=== PATIENT | female | born 1990 | race Caucasian/White ===

== ENCOUNTER 2017-07-05 20:22 | Emergency (ER) | payer SELFPAY ==
[2017-07-05] MEDS ORDERED: diphenhydrAMINE 25 MG CAPSULE PO STA (20:31)
[2017-07-05] MEDS ORDERED: predniSONE 20 MG TABLET PO STA (20:31)
--- NOTE | 2017-07-05 20:32 | ED Physician Documentation ---
History of Present Illness - Stated complaint Stated Complaint: SWELLING MOUTH - Chief complaint Chief Complaint: Allergic Rx - History obtained from History obtained from: Patient - History of Present Illness Timing: Today, How many minutes ago (15) Pain level max: 0 Pain level now: 0 - Additonal information Additional information: Patient is a 26-year-old female who presents to the emergency department lower lip swelling. States it started after taking Excedrin Migraine. Has previously taken this without issue. Does not feel like her tongue is swollen. No wheezing or difficulty breathing. No change in voice. Nothing makes it better or worse. 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 - Present Medications Home Medications: Ambulatory Orders Medication Instructions Recorded Confirmed Fluoxetine HCl [Prozac] 1 cap PO DAILY PRN 07/05/17 07/05/17 predniSONE [Prednisone] 40 mg PO DAILY #6 tablet 07/05/17 - Allergies Allergies/Adverse Reactions: Allergies Allergy/AdvReac Type Severity Reaction Status Date / Time amoxicillin [Amoxicillin] Allergy Rash Verified 07/05/17 20:51 azithromycin [From Zithromax] Allergy Rash Verified 07/05/17 20:51 Penicillins Allergy Rash Verified 07/05/17 20:51 Sulfa (Sulfonamide Allergy Rash Verified 07/05/17 20:51 Antibiotics) - Social History Does the pt smoke?: No Smoking Status: Never smoker Does the pt drink ETOH?: No Does the pt have substance abuse?: No - Immunizations Immunizations are current?: Yes PD ED PE NORMAL - Vitals Vital signs reviewed: Yes - General General: Alert and oriented X 3, No acute distress - HEENT HEENT: PERRL, EOMI, Ears normal, Moist mucous membranes, Pharynx benign, Other ( Mild swelling to the lower lip. Intraoral exam is normal. No wheezing or stridor.) - Neck Neck: Supple, no meningeal sign - Cardiac Cardiac: RRR - Respiratory Respiratory: No respiratory distress, Clear bilaterally - Abdomen Abdomen: Soft, Non tender, Non distended - Derm Derm: Warm and dry - Neuro Neuro: Alert and oriented X 3 - Psych Psych: Normal mood, Normal affect Results - Vitals Vitals: Vital Signs - 24 hr 07/05/17 07/05/17 07/05/17 20:24 20:45 21:09 Temperature 36.9 C Heart Rate 70 89 85 Respiratory 16 15 15 Rate Blood Pressure 155/92 H 139/94 H 145/92 H O2 Saturation 99 99 97 07/05/17 22:03 Temperature Heart Rate 84 Respiratory 16 Rate Blood Pressure 147/100 H O2 Saturation 98 Oxygen O2 Source Room air PD MEDICAL DECISION MAKING - ED course Complexity details: considered differential, d/w patient ED course: Patient is a 26-year-old female with what appears to be an allergic reaction to the lower lip. Unclear what this was too, but possibly related to the Excedrin Migraine she took? She was given Benadryl and prednisone and observed in the emergency department while the swelling resolved. No stridor. No wheezing. Will prescribe steroids for home and follow-up with her PCP. Patient counseled regarding signs and symptoms for which I believe and urgent re-evaluation would be necessary. Patient with good understanding of and agreement to plan and is comfortable going home at this time This document was made in part using voice recognition software. While efforts are made to proofread this document, sound alike and grammatical errors may occur. Departure - Departure Disposition: 01 Home, Self Care Clinical Impression: Allergic reaction Qualifiers: Encounter type: initial encounter Qualified Code(s): T78.40XA - Allergy, unspecified, initial encounter Condition: Good Instructions: ED Allergic Reaction Local Other Follow-Up: Arlen Da Silva MD [Primary Care Provider] - As Needed Prescriptions: predniSONE [Prednisone] 40 mg PO DAILY #6 tablet Comments: Continue benadryl at home as well. 1 pill every 6 hours. Return if you worsen. Do not drive while taking the benadryl. Discharge Date/Time: 07/05/17 22:03
[2017-07-05] MEDS ORDERED: diphenhydrAMINE 25 MG CAPSULE PO ONE (20:41)
[2017-07-05] MEDS ORDERED: predniSONE 20 MG TABLET ONE (20:41)
[2017-07-05 22:05] VITALS: BP 147/100
== END 2017-07-05 22:03 | disposition home or self-care (01) ==
LOC: ED 20:22
DX: T78.40XA Allergy, unspecified, initial encounter (principal); X58.XXXA Exposure to other specified factors, initial encounter
CPT/HCPCS: 99283; A9270; J7512

== ENCOUNTER 2020-01-23 20:58 | Emergency (ER) | payer OTHER ==
--- NOTE | 2020-01-23 21:08 | ED Physician Documentation ---
History of Present Illness - Stated complaint Stated Complaint: ABD PX/DIZZY/NAUSEA - History obtained from History obtained from: Patient (Patient is a 29-year-old female who presents with diffuse abdominal discomfort and nausea and abdominal pain. She denies any fevers chills or night sweats denies any flank pain or hematuria or syncopal episodes.) Review of Systems Constitutional: reports: Reviewed and negative Eyes: reports: Reviewed and negative Ears: reports: Reviewed and negative Nose: reports: Reviewed and negative Throat: reports: Reviewed and negative Cardiac: reports: Reviewed and negative Respiratory: reports: Reviewed and negative GI: reports: Abdominal Pain : reports: Reviewed and negative Skin: reports: Reviewed and negative Musculoskeletal: reports: Reviewed and negative Neurologic: reports: Reviewed and negative Psychiatric: reports: Reviewed and negative Endocrine: reports: Reviewed and negative Immunocompromised: reports: Reviewed and negative PD PAST MEDICAL HISTORY - Past Medical History Psych: Depression - Past Surgical History Past Surgical History: Yes 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 - Present Medications Home Medications: Ambulatory Orders Medication Instructions Recorded Confirmed Fluoxetine HCl [Prozac] 1 cap PO DAILY PRN 07/05/17 07/05/17 predniSONE [Prednisone] 40 mg PO DAILY #6 tablet 07/05/17 Nitrofurantoin Monohyd/M-Cryst 100 mg PO BID 5 Days #10 capsule 01/23/20 [Macrobid 100 mg Capsule] - Allergies Allergies/Adverse Reactions: Allergies Allergy/AdvReac Type Severity Reaction Status Date / Time amoxicillin [Amoxicillin] Allergy Rash Verified 01/23/20 21:08 azithromycin [From Zithromax] Allergy Rash Verified 01/23/20 21:08 Penicillins Allergy Rash Verified 01/23/20 21:08 Sulfa (Sulfonamide Allergy Rash Verified 01/23/20 21:08 Antibiotics) - Social History Does the pt smoke?: No Smoking Status: Never smoker Does the pt drink ETOH?: No Does the pt have substance abuse?: No - Immunizations Immunizations are current?: Yes PD ED PE NORMAL - Vitals Vital signs reviewed: Yes - General General: Alert and oriented X 3, No acute distress, Well developed/nourished - HEENT HEENT: PERRL, Moist mucous membranes - Neck Neck: Supple, no meningeal sign - Cardiac Cardiac: RRR, No murmur, Strong equal pulses - Respiratory Respiratory: Clear bilaterally - Abdomen Abdomen: Other (The abdomen is mildly tender there is no peritoneal signs there is no guarding no rebounding no hepatosplenomegaly no CVA tenderness no obvious hernias appreciated no midline abdominal pulsatile mass) - Female Female : Pt declined - Rectal Rectal: Pt declined - Back Back: No CVA TTP, No spinal TTP - Derm Derm: Normal color, Warm and dry, No rash - Extremities Extremities: No deformity - Neuro Neuro: Alert and oriented X 3, 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, No motor deficit, No sensory deficit, Normal speech - Psych Psych: Normal mood, Normal affect Results - Vitals Vitals: Vital Signs - 24 hr 01/23/20 01/23/20 21:08 23:15 Temperature 36.5 C Heart Rate 76 82 Respiratory 16 14 Rate Blood Pressure 172/94 H 168/78 H O2 Saturation 100 98 Oxygen O2 Source Room air - Labs Labs: Laboratory Tests 01/23/20 01/23/20 01/23/20 21:19 21:30 21:30 WBC 9.6 RBC 4.35 Hgb 14.1 Hct 40.7 MCV 93.6 MCH 32.4 H MCHC 34.6 RDW 12.6 Plt Count 232 MPV 9.5 Neut # (Auto) 7.0 H Lymph # (Auto) 1.7 Galax # (Auto) 0.6 Eos # (Auto) 0.2 Baso # (Auto) 0.1 Absolute Nucleated RBC 0.00 Nucleated RBC % 0.0 Sodium 140 Potassium 3.1 L Chloride 104 Carbon Dioxide 25 Anion Gap 11.0 BUN 12 Creatinine 0.6 Estimated GFR (MDRD) 118 Glucose 105 H Lactic Acid Calcium 9.3 Total Bilirubin 1.0 AST 17 ALT 27 Alkaline Phosphatase 59 Total Protein 7.9 Albumin 4.5 Globulin 3.4 Albumin/Globulin Ratio 1.3 Lipase 34 Urine Color YELLOW Urine Clarity CLEAR Urine pH 6.5 Ur Specific Irma 1.020 Urine Protein NEGATIVE Urine Glucose (UA) NEGATIVE Urine Ketones TRACE Urine Occult Blood NEGATIVE Urine Nitrite POSITIVE H Urine Bilirubin NEGATIVE Urine Urobilinogen 0.2 (NORMAL) Ur Leukocyte Esterase NEGATIVE Urine RBC 0-5 Urine WBC 4-5 Ur Squamous Epith Cells FEW Squamous Urine Bacteria Many H Ur Microscopic Review INDICATED Urine Culture Comments INDICATED Urine HCG, Qual NEGATIVE 01/23/20 21:49 WBC RBC Hgb Hct MCV MCH MCHC RDW Plt Count MPV Neut # (Auto) Lymph # (Auto) Galax # (Auto) Eos # (Auto) Baso # (Auto) Absolute Nucleated RBC Nucleated RBC % Sodium Potassium Chloride Carbon Dioxide Anion Gap BUN Creatinine Estimated GFR (MDRD) Glucose Lactic Acid 0.5 Calcium Total Bilirubin AST ALT Alkaline Phosphatase Total Protein Albumin Globulin Albumin/Globulin Ratio Lipase Urine Color Urine Clarity Urine pH Ur Specific Irma Urine Protein Urine Glucose (UA) Urine Ketones Urine Occult Blood Urine Nitrite Urine Bilirubin Urine Urobilinogen Ur Leukocyte Esterase Urine RBC Urine WBC Ur Squamous Epith Cells Urine Bacteria Ur Microscopic Review Urine Culture Comments Urine HCG, Qual PD MEDICAL DECISION MAKING - ED course Complexity details: considered differential (Patient's exam is unremarkable she was treated with IV fluids and IV analgesics and antiemetics reexamined multiple times her pain is resolved her urinalysis is positive for nitrite and bacteria will go ahead and provide a prescription for antibiotics and close follow-up with her primary care provider tomorrow.) Departure - Departure Disposition: Home, Self Care Clinical Impression: Abdominal pain Qualifiers: Abdominal location: unspecified location Qualified Code(s): R10.9 - Unspecified abdominal pain UTI (urinary tract infection) Qualifiers: Urinary tract infection type: site unspecified Hematuria presence: without hematuria Qualified Code(s): N39.0 - Urinary tract infection, site not specified Condition: Stable Instructions: ED UTI Cystitis Female Follow-Up: your, doctor [Other] - Tomorrow Prescriptions: Nitrofurantoin Monohyd/M-Cryst [Macrobid 100 mg Capsule] 100 mg PO BID 5 Days #10 capsule Comments: Follow-up with your primary care provider tomorrow. Take antibiotics as directed. Discharge Date/Time: 01/23/20 23:21
[2020-01-23 21:39] LABS: BASOPHILS # (AUTO) 0.1 10^3/uL (0.0-0.1); BASOPHILS % (AUTO) 0.6 %; EOSINOPHILS # (AUTO) 0.2 10^3/uL (0.0-0.7); EOSINOPHILS % (AUTO) 1.9 %; HGB - HEMOGLOBIN 14.1 g/dL (12.0-16.0); LYMPHOCYTES # (AUTO) 1.7 10^3/uL (1.5-3.5); LYMPHOCYTES % (AUTO) 17.5 %; MEAN CORPUSCULAR HEMOGLOBIN 32.4 pg (27.0-31.0); MEAN CORPUSCULAR HGB CONC 34.6 g/dL (32.0-36.0); MEAN CORPUSCULAR VOLUME 93.6 fL (81.0-99.0); MEAN PLATELET VOLUME 9.5 fL (7.9-10.8); MONOCYTES # (AUTO) 0.6 10^3/uL (0.0-1.0); MONOCYTES % (AUTO) 6.4 %; NEUTROPHILS % (AUTO) 73.2 %; PLT - PLATELET COUNT 232 10^3/uL (130-450); RED BLOOD COUNT 4.35 10^6/uL (4.20-5.40); RED CELL DISTRIBUTION WIDTH 12.6 % (12.0-15.0); WHITE BLOOD COUNT 9.6 x10^3/uL (4.8-10.8)
[2020-01-23 21:40] LABS: BILIRUBIN,URINE NEGATIVE (NEGATIVE); GLUCOSE, URINE (UA) NEGATIVE (NEGATIVE); KETONES,URINE (UA) TRACE mg/dL (NEGATIVE); LEUKOCYTE ESTERASE, URINE NEGATIVE (NEGATIVE); NITRITE,URINE POSITIVE (NEGATIVE); OCCULT BLOOD,URINE NEGATIVE (NEGATIVE); PH,URINE 6.5 PH (5.0-7.5); PROTEIN,URINE NEGATIVE (NEGATIVE); UROBILINOGEN,URINE 0.2 (NORMAL) E.U./dL (NORMAL)
[2020-01-23 21:43] LABS: CLARITY,URINE CLEAR (CLEAR); HCG UR QUAL NEGATIVE
[2020-01-23] MEDS ORDERED: SODIUM CHLORIDE 0.9% 1,000 ML IV STA (21:44)
[2020-01-23] MEDS ORDERED: ONDANSETRON 4 MG/2 ML VIAL IVP STA (21:44)
[2020-01-23] MEDS ORDERED: MORPHINE 2 MG/ML CARPUJECT IVP STA (21:44)
[2020-01-23 21:50] LABS: BACTERIA,URINE Many /HPF (None Seen); RBC,URINE 0-5 /HPF (0-5); SQUAMOUS EPITHELIAL CELL,UR FEW Squamous (<= Few)
[2020-01-23 21:52] LABS: ALBUMIN 4.5 g/dL (3.2-5.5); ALBUMIN/GLOBULIN RATIO 1.3 (1.0-2.2); CALCIUM 9.3 mg/dL (8.5-10.3); CREATININE 0.6 mg/dL (0.4-1.0); TOTAL PROTEIN 7.9 g/dL (6.7-8.2)
[2020-01-23 23:16] VITALS: BP 168/78
== END 2020-01-23 23:21 | disposition home or self-care (01) ==
LOC: ED 20:58
DX: R10.9 Unspecified abdominal pain (principal); N39.0 Urinary tract infection, site not specified
CPT/HCPCS: 36415; 80053; 81001; 81003; 81025; 83605; 83690; 85025; 87086; 96374; 96375; 99283

== ENCOUNTER 2021-02-03 09:53 | Emergency (ER) | payer OTHER ==
[2021-02-03] MEDS ORDERED: HYDROcod/ACETAM 5/325 MG TABLET PO STA (10:23)
--- NOTE | 2021-02-03 10:26 | ED Physician Documentation ---
PD HPI HEENT - Stated complaint Stated Complaint: MOUTH/LIP SORE - Chief complaint Chief Complaint: Heent - History obtained from History obtained from: Patient - Additional information Additional information: She went to see the dentist on Wednesday. She had what sounds like bitewings or a Panorex done. Was told there were no problems but was prescribed Peridex. Subsequent to starting the Peridex now her gums are all swollen she has lip sores. Pain is significant. No fevers. 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 - Present Medications Home Medications: Ambulatory Orders Medication Instructions Recorded Confirmed HYDROcod/ACETAM 5/325 [[place] 5/325] 1 - 2 tab PO Q6H PRN #10 tablet 02/03/21 Magic Mouthwash 5 ml PO QID PRN #150 ml 02/03/21 clindamycin HCL [Cleocin HCl] 300 mg PO QID #28 cap 02/03/21 - Allergies Allergies/Adverse Reactions: Allergies Allergy/AdvReac Type Severity Reaction Status Date / Time amoxicillin [Amoxicillin] Allergy Rash Verified 02/03/21 10:00 azithromycin [From Zithromax] Allergy Rash Verified 02/03/21 10:00 Penicillins Allergy Rash Verified 02/03/21 10:00 Sulfa (Sulfonamide Allergy Rash Verified 02/03/21 10:00 Antibiotics) - Social History Does the pt smoke?: No Smoking Status: Never smoker Does the pt drink ETOH?: Yes Does the pt have substance abuse?: No - Immunizations Immunizations are current?: Yes PD ED PE NORMAL - Vitals Vital signs reviewed: Yes - General General: Alert and oriented X 3, No acute distress - HEENT HEENT: Other (Her gums are diffusely swollen, some spots of bleeding. Also mild inflammation of the tongue. Retropharynx is normal, phonation is normal.) - Neck Neck: Supple, no meningeal sign, No bony TTP - Derm Derm: Normal color, Warm and dry - Extremities Extremities: No edema, No calf tenderness / cord - Neuro Neuro: Alert and oriented X 3, Normal speech Results - Vitals Vitals: Vital Signs - 24 hr 02/03/21 02/03/21 09:56 10:36 Temperature 36.0 C L 36.8 C Heart Rate 86 85 Respiratory 16 16 Rate Blood Pressure 160/112 H 165/114 H O2 Saturation 98 99 Oxygen O2 Source Room air PD MEDICAL DECISION MAKING - ED course ED course: 30-year-old woman with what is likely a localized allergic reaction to Peridex which she is advised to stop and prescribed Magic mouthwash with steroid and antibiotics for severe swollen gingivitis. Departure - Departure Disposition: 01 Home, Self Care Clinical Impression: Allergic gingivitis Condition: Good Record reviewed to determine appropriate education?: Yes Instructions: ED Allergic Reaction Local Other Prescriptions: clindamycin HCL [Cleocin HCl] 300 mg PO QID #28 cap Magic Mouthwash 5 ml PO QID PRN #150 ml PRN Reason: mouth pain HYDROcod/ACETAM 5/325 [[place] 5/325] 1 - 2 tab PO Q6H PRN #10 tablet PRN Reason: Pain Comments: I would add chlorhexidine/Peridex to your allergy list. Return for new or worsening symptoms. Recheck with your dentist in 3 days if not better. Discharge Date/Time: 02/03/21 10:43
[2021-02-03 10:37] VITALS: BP 165/114
== END 2021-02-03 10:43 | disposition home or self-care (01) ==
LOC: ED 09:53
DX: K05.00 Acute gingivitis, plaque induced (principal); T78.40XA Allergy, unspecified, initial encounter
CPT/HCPCS: 99283; A9270

== ENCOUNTER 2021-02-11 14:45 | Emergency (ER) | payer OTHER ==
[2021-02-11 14:53] VITALS: BP 165/106
--- NOTE | 2021-02-11 14:57 | ED Physician Documentation ---
PD HPI HEENT - Stated complaint Stated Complaint: BLURRY VISION/LT SIDE WEAKNESS - Chief complaint Chief Complaint: Heent - History obtained from History obtained from: Patient - History of Present Illness Timing - onset: How many days ago (4) Timing - duration: Days (4) Timing - details: Gradual onset, Still present Location: Other (left side of face weakness gradual onset and worsening over 4 days. Ginginval and lip lesions from a week ago have improved and nearly gone (mild lower lip still).) Associated symptoms: Other (had gingival/lip sores right side week ago after dental exam and Peridex use. There are improved with Prednisone and Clindamycin.). No: Fever, Congestion, Swollen nodes, Facial swelling, Cough Recently seen: Emergency Dept (week ago for oral lesions/sores.) Review of Systems Constitutional: denies: Fever, Chills, Myalgias Eyes: reports: Decreased vision Nose: denies: Rhinorrhea / runny nose, Congestion Throat: reports: Oral lesions / sores. denies: Sore throat Cardiac: denies: Palpitations Respiratory: denies: Dyspnea, Cough GI: denies: Nausea, Vomiting, Diarrhea Musculoskeletal: denies: Neck pain Neurologic: reports: Generalized weakness, Focal weakness (left side face including foreahead.), Headache (mild left frontal). 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 - Present Medications Home Medications: Ambulatory Orders Medication Instructions Recorded Confirmed HYDROcod/ACETAM 5/325 [[place] 5/325] 1 - 2 tab PO Q6H PRN #10 tablet 02/03/21 Magic Mouthwash 5 ml PO QID PRN #150 ml 02/03/21 clindamycin HCL [Cleocin HCl] 300 mg PO QID #28 cap 02/03/21 Valacyclovir HCl [Valtrex] 1,000 mg PO TID 5 Days #15 tablet 02/11/21 dexAMETHasone [Decadron] 4 mg PO DAILY #7 tablet 02/11/21 - Allergies Allergies/Adverse Reactions: Allergies Allergy/AdvReac Type Severity Reaction Status Date / Time amoxicillin [Amoxicillin] Allergy Rash Verified 02/11/21 14:54 azithromycin [From Zithromax] Allergy Rash Verified 02/11/21 14:54 chlorhexidine Allergy Rash Verified 02/11/21 14:54 Penicillins Allergy Rash Verified 02/11/21 14:54 Sulfa (Sulfonamide Allergy Rash Verified 02/11/21 14:54 Antibiotics) - Social History Does the pt smoke?: No Smoking Status: Never smoker Does the pt drink ETOH?: Yes Does the pt have substance abuse?: No - Immunizations Immunizations are current?: Yes PD ED PE NORMAL - Vitals Vital signs reviewed: Yes - General General: Alert and oriented X 3, No acute distress, Well developed/nourished - HEENT HEENT: Ears normal, Moist mucous membranes, Pharynx benign, Other (lower right lip with nearly dried small blister appearing process. This on right. ) - Neck Neck: Supple, no meningeal sign, No adenopathy, No bruit - Cardiac Cardiac: RRR, No murmur - Respiratory Respiratory: Clear bilaterally - Derm Derm: Normal color, Warm and dry - Extremities Extremities: No deformity - Neuro Neuro: Alert and oriented X 3, No sensory deficit, Normal speech, Other (left face with flaccid paralysis including the forehead.) Results - Vitals Vitals: Vital Signs - 24 hr 02/11/21 14:48 Temperature 37.5 C Heart Rate 70 Respiratory 16 Rate Blood Pressure 165/106 H O2 Saturation 99 Oxygen O2 Source Room air PD MEDICAL DECISION MAKING - ED course Complexity details: reviewed old records, reviewed results (I could only find report of 4 cases of Bowman Palsy with the initial Pfizer trial (so about 45 K people). I don't know about ongoing reports/tally through [employer]/FDA reporting. ), considered differential (onset symptoms 3 days after 2nd Pfizer COVID vaccine. consider immune related response with the facial nerve inflammation. She had had oral lesions a week ago that were abphthous like or consider herpetic by location. So the Bowman Palsy could relate to viral herpetic inflammation. 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 This is caused by inflammation of the facial nerve and could relate to or be triggered by your recent vaccination. We will treat it with a steroid anti-inflammatory daily for a week. This is the treatment commonly for other presentations of Bowman Palsy as well. I will report this to the FDA so that there is tracking of the numbers. Current I could see that there were 4 cases of Bowman Palsy in the initial Pfizer trials (so out of about 45 thousand people vaccinated), so may not be above the background rate of random development of Bowman Palsy. You also had sores in the mouth recently and that could possibly represent a viral infection that is into the facial nerve as well. That is a common associated cause of Bowman's palsy as well. We will treat it with Valacyclovir 3 times a day for 5 days. There are no Lyme carrying ticks in this area so that would not be a cause for your Bowman's palsy in this part [place] the [place]. I would anticipate this not really worsening much from here but may take several weeks to resolve. Use lubricating eyedrops regularly through the day to keep your eye from being irritated. Find the easiest foods for eating. Follow-up with your primary care if not starting to improve well over the next week. Discharge Date/Time: 02/11/21 16:08
[2021-02-11] MEDS ORDERED: CHERRY SYRUP 10 ML UDC PO ONE (15:38)
[2021-02-11] MEDS ORDERED: ACYCLOVIR 200 MG CAPSULE PO STA (15:38)
[2021-02-11] MEDS ORDERED: DEXAMETHASONE 10 MG/ML VIAL PO STA (15:38)
== END 2021-02-11 16:08 | disposition home or self-care (01) ==
LOC: ED 14:45
DX: G51.0 Bell's palsy (principal)
CPT/HCPCS: 99282; 99283; A9270

== ENCOUNTER 2022-01-13 02:45 | Emergency (ER) | payer OTHER ==
--- NOTE | 2022-01-13 03:22 | ED Physician Documentation ---
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 Mild dyspnea. Denies fever. She is approximately 6 weeks . She is COVID vaccinated without booster. Review of Systems Constitutional: denies: Fever, Chills, Myalgias, Fatigue, Weight Loss, Sweats Throat: denies: Sore throat Cardiac: reports: Chest pain / pressure. denies: Palpitations, Pedal edema Respiratory: reports: Dyspnea (mild), Cough. denies: Hemoptysis, Wheezing Musculoskeletal: denies: Extremity swelling PD PAST MEDICAL HISTORY - Past Medical History Past Medical History: Yes Cardiovascular: Hypertension Respiratory: None Neuro: None Endocrine/Autoimmune: None GI: None REGISTERED ASSOCIATE: None : None HEENT: None Psych: Depression Musculoskeletal: Other Derm: None - Past Surgical History Past Surgical History: Yes General: Appendectomy /REGISTERED ASSOCIATE: section - Present Medications Home Medications: Ambulatory Orders Medication Instructions Recorded Confirmed Lisinopril [Zestril] 20 mg PO DAILY #30 tablet 11/26/21 desog-e.estradioL/e.estradioL 1 tab PO DAILY 11/26/21 11/26/21 [Volnea 0.15-0.02-0.01 mg Tab] - Allergies Allergies/Adverse Reactions: Allergies Allergy/AdvReac Type Severity Reaction Status Date / Time amoxicillin [Amoxicillin] Allergy Rash Verified 01/13/22 02:56 azithromycin [From Zithromax] Allergy Rash Verified 01/13/22 02:56 chlorhexidine Allergy Rash Verified 01/13/22 02:56 Penicillins Allergy Rash Verified 01/13/22 02:56 Sulfa (Sulfonamide Allergy Rash Verified 01/13/22 02:56 Antibiotics) - Social History Does the pt smoke?: No Smoking Status: Never smoker Does the pt drink ETOH?: Yes Does the pt have substance abuse?: No - Immunizations Immunizations are current?: Yes - POLST Patient has POLST: No PD ED PE NORMAL - Vitals Vital signs reviewed: Yes - General General: Alert and oriented X 3, No acute distress, Well developed/nourished - Cardiac Cardiac: RRR, No murmur, No gallop, No rub - Respiratory Respiratory: No respiratory distress, Clear bilaterally - Abdomen Abdomen: Soft, Non tender - Extremities Extremities: No edema Results - Vitals Vitals: Oxygen O2 Source Room air - EKG (time done) No standard instances Rate: Rate (enter#) (104), Tachy Rhythm: Sinus tachycardia [place]: Normal Intervals: Normal AR QRS: Normal Ischemia: Normal ST segments - Labs Labs: Laboratory Tests 01/13/22 04:25 Nasal Adenovirus (PCR) NOT DETECTED Nasal B. parapertussis DNA (PCR) NOT DETECTED Nasal Coronavir 229E PCR NOT DETECTED Nasal Coronavir HKU1 PCR NOT DETECTED Nasal Coronavir NL63 PCR NOT DETECTED Nasal Coronavir OC43 PCR NOT DETECTED Nasal Enterovir/Rhinovir PCR NOT DETECTED Nasal Influenza B PCR NOT DETECTED Nasal Influenza A PCR NOT DETECTED Nasal Parainfluen 1 PCR NOT DETECTED Nasal Parainfluen 2 PCR NOT DETECTED Nasal Parainfluen 3 PCR NOT DETECTED Nasal Parainfluen 4 PCR NOT DETECTED Nasal RSV (PCR) NOT DETECTED Nasal B.pertussis DNA PCR NOT DETECTED Nasal C.pneumoniae (PCR) NOT DETECTED [place] Human Metapneumo PCR NOT DETECTED Nasal M.pneumoniae (PCR) NOT DETECTED Nasal SARS-CoV-2 (PCR) NOT DETECTED - Rads (name of study) chest xray Radiology: Prelim report reviewed, See rad report PD MEDICAL DECISION MAKING - ED course Complexity details: reviewed results, re-evaluated patient, considered differential, d/w patient ED course: HPI suggestive of URI. Unremarkable EKG, CXR, and negative respiratory panel PCR for viruses tested including COVID and influenza. She is in NAD and vital signs stable. No further emergent testing indicated at this time nor specific treatment. Suspect URI, recommend follow up with PMD, return precautions discussed. Departure - Departure Disposition: 01 Home, Self Care Clinical Impression: Upper respiratory tract infection Qualifiers: URI type: unspecified viral URI Qualified Code(s): J06.9 - Acute upper respir atory infection, unspecified Condition: Good Instructions: ED Upper Resp Infec No Abx Tx Comments: Your tests are unremarkable at this time. The chest xray was normal; no evidence of infection such as pneumonia. As we discussed, upper respiratory infections including bronchitis typically do not show on chest xray, but these infections also typically do not need an antibiotic. The nasal swab was negative for the viruses tested (included COVID, influenza, and several other viruses). At this time, further testing is not indicated and there is no specific treatment necessary. The symptoms should resolve within the next several days. Return to the emergency department if worse, follow up with your primary care provider within 4-5 days if not improving Discharge Date/Time: 01/13/22 06:31
[2022-01-13] MEDS ORDERED: ACETAMINOPHEN 325 MG TABLET PO STA (04:18)
[2022-01-13 05:19] LABS: CORONAVIRUS 229E-RESP PCR NOT DETECTED; CORONAVIRUS HKU1-RESP PCR NOT DETECTED; CORONAVIRUS NL63-RESP PCR NOT DETECTED; CORONAVIRUS OC43-RESP PCR NOT DETECTED; HUMAN METAPNEUMOVIRUS NOT DETECTED; INFLUENZA A- RESP PCR PANEL NOT DETECTED; RHINOVIRUS/ENTEROVIRUS NOT DETECTED; SARS-CoV-2 -RESP PCR PANEL NOT DETECTED
[2022-01-13 05:20] LABS: B. PARAPERTUSSIS- RESP PCR PAN NOT DETECTED; B. PERTUSSIS- RESP PCR PANEL NOT DETECTED; C. PNEUMONIAE- RESP PCR PANEL NOT DETECTED; INFLUENZA B - RESP PCR PANEL NOT DETECTED; M. PNEUMONIAE- RESP PCR PANEL NOT DETECTED; PARAINFLUENZA VIRUS 1 NOT DETECTED; PARAINFLUENZA VIRUS 2 NOT DETECTED; PARAINFLUENZA VIRUS 3 NOT DETECTED; PARAINFLUENZA VIRUS 4 NOT DETECTED; RSV- RESP PCR PANEL NOT DETECTED
[2022-01-13 06:31] VITALS: BP 161/103
--- NOTE | 2022-01-13 07:32 | XRAY Report ---
PROCEDURE: Chest 2 View X-Ray INDICATIONS: chest pain, cough TECHNIQUE: 2 view(s) of the chest. COMPARISON: None. FINDINGS: Surgical changes and devices: None. Lungs and pleura: No pleural effusions or pneumothorax. Lungs are clear. Mediastinum: Mediastinal contours are normal. Heart size is normal. Bones and chest wall: No suspicious bony abnormalities. Soft tissues appear unremarkable. IMPRESSION: Chest without acute cardiopulmonary abnormalities. No focal airspace disease. No significant discrepancy with initial interpretation by overnight radiologist. Reviewed by: Tan Erickson MD on 01/13/2022 7:30 AM PDT Approved by: Tan Erickson MD on 01/13/2022 7:30 AM PDT Station ID: [id number]
== END 2022-01-13 06:31 | disposition home or self-care (01) ==
LOC: ED 02:45
DX: O99.511 Diseases of the respiratory system complicating pregnancy, first trimester (principal); J06.9 Acute upper respiratory infection, unspecified; Z20.822 Contact with and (suspected) exposure to COVID-19; Z3A.01 Less than 8 weeks gestation of pregnancy
CPT/HCPCS: 71046; 87633; 93005; 99284; A9270

== ENCOUNTER 2022-10-29 17:02 | Emergency (ER) | payer MEDICAID, OTHER ==
--- NOTE | 2022-10-29 17:23 | ED Physician Documentation ---
PD HPI DYSPNEA - Stated complaint Stated Complaint: BODY SWELLING/COLD - Chief complaint Chief Complaint: General - History obtained from History obtained from: Patient - History of Present Illness Timing - onset: Today (The patient presents with onset of generalized edema most notable with some in the face and hands and some on her knee. Faint feeling of lightheadedness and throat swelling. No lip swelling nor dyspnea. She had started to new medicines today and increased dose of another.) Timing - details: Abrupt onset, Still present Inciting event(s): Other (The patient had seen her primary care provider for hypertension and also some mood disorder. She was prescribed nifedipine and losartan and told to increase her sertraline from 25 to 50 mg. She did all 3 of those this more name and a few hours later noted some edema.) Associated symptoms: Other (She had a slight feeling of fogginess and thought and a lightheaded feeling and also described feeling cold all over. She took her blood pressure and it was 123/78 which is actually quite low compared to her normal 160/90.) Similar symptoms before: Has not had sx before Recently seen: Clinic Review of Systems Constitutional: denies: Fever, Chills Nose: denies: Rhinorrhea / runny nose, Congestion Throat: denies: Sore throat Cardiac: denies: Chest pain / pressure, Palpitations Respiratory: denies: Cough GI: denies: Nausea, Vomiting Skin: denies: Rash (denies hives/rash/itching with the symptoms today.) Neurologic: denies: Focal weakness, Numbness, Altered mental status PD PAST MEDICAL HISTORY - Past Medical History Cardiovascular: Hypertension Respiratory: None Neuro: None Endocrine/Autoimmune: None GI: None 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: 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 : None HEENT: None Psych: Depression Musculoskeletal: Other Derm: None - Past Surgical History Past Surgical History: Yes General: Appendectomy /SUPERVISOR RESIDENTIAL: section - Present Medications Home Medications: Ambulatory Orders Medication Instructions Recorded Confirmed Lisinopril [Zestril] 20 mg PO DAILY #30 tablet 11/26/21 desog-e.estradioL/e.estradioL 1 tab PO DAILY 11/26/21 11/26/21 [Volnea 0.15-0.02-0.01 mg Tab] - Allergies Allergies/Adverse Reactions: Allergies Allergy/AdvReac Type Severity Reaction Status Date / Time amoxicillin [Amoxicillin] Allergy Rash Verified 10/29/22 17:14 azithromycin [From Zithromax] Allergy Rash Verified 10/29/22 17:14 chlorhexidine Allergy Rash Verified 10/29/22 17:14 Penicillins Allergy Rash Verified 10/29/22 17:14 Sulfa (Sulfonamide Allergy Rash Verified 10/29/22 17:14 Antibiotics) - Social History Does the pt smoke?: No Smoking Status: Never smoker Does the pt drink ETOH?: Yes Does the pt have substance abuse?: No - Immunizations Immunizations are current?: Yes - POLST Patient has POLST: No PD ED PE NORMAL - Vitals Vital signs reviewed: Yes - General General: Alert and oriented X 3, No acute distress, Well developed/nourished - HEENT HEENT: Pharynx benign (Minimal edema of the uvula. Otherwise normal oral exam.) - Neck Neck: Supple, no meningeal sign, No adenopathy - Cardiac Cardiac: RRR, No murmur - Respiratory Respiratory: Clear bilaterally - Abdomen Abdomen: Soft, Non tender - Derm Derm: Normal color, Warm and dry, No rash - Extremities Extremities: No calf tenderness / cord, Other (Mild general edema of both hands and fingers and slightly on the forehead. Not really noticed in the legs. No trouble breathing.) - Neuro Neuro: Alert and oriented X 3, No motor deficit, Normal speech Results - Vitals Vitals: Vital Signs - 24 hr 10/29/22 10/29/22 10/29/22 17:09 17:27 18:18 Temperature 36.8 C Heart Rate 92 86 87 Respiratory 16 20 18 Rate Blood Pressure 141/91 H 147/98 H 138/96 H O2 Saturation 99 99 99 Oxygen O2 Source Room air PD Medical Decision Making - ED course Complexity details: considered differential (She had mild edema diffusely but mostly hands and face. 2 new medicines and 1 increased dose this morning a few hours earlier. No other obvious precipitant of new foods etc. Presume one of the medicines. ), d/w patient ED course: She has been on sertraline and just an increased dose now so less likely. Nifedipine can cause edema but usually slower over days/weeks. I presume the lisinopril caused symtpoms of swelling as angioedema known occasional adverse effect. The foggy and lightheaded may have been just the lower BP effective from the new anithypertensives and will need to not start or change 3 meds at a time. Departure - Departure Disposition: 01 Home, Self Care Clinical Impression: Light-headed feeling, Mild generalized edema, Side effect of medication Condition: Stable Record reviewed to determine appropriate education?: Yes Follow-Up: JENNIFER RICO [Primary Care Provider] - Comments: It is hard to tell exactly what caused your symptoms. The lightheadedness and foggy feeling in could be the increased dose of sertraline as that would be side effects to expect until you are adjusted to the new dose. However it could relate to a abrupt drop in blood pressure that may have gone from the effectiveness of the 2 new blood pressure medicines. That drop in blood pressure certainly could have led to the feeling of "coldness" in your system as your body pulled blood from the skin to the core to support the main organs. However the swelling so abruptly would be harder to explain from a drop in the blood pressure. I therefore would be inclined to think a side effect of one of the medicines such as allergic reaction. Of the 3 medicines, the lisinopril is most associated with an abrupt edema. I therefore would suggest holding the lisinopril. Stay well-hydrated and tomorrow take just the nifedipine and your prior dose of the sertraline, and see if you feel okay with that for a couple of days. If so then increase the sertraline up to the 50 mg and see how you feel with that over a few days. Your blood pressure may still be a bit elevated with just these but better that than too low or other side effects. If you are feeling well with those 2 medications each and no recurrent edema or other symptoms to it, then call and talk to your provider and see if they want to try resuming the lisinopril or just go with a different blood pressure medicine such as an ARB like losartan or such. If you have recurrent edema and other side effects with either of the other medicines, then obviously stop them. Discharge Date/Time: 10/29/22 18:23
[2022-10-29 18:22] VITALS: BP 138/96
--- OUTSIDE RECORDS SUMMARY | 2022-10-29 18:26 | EXTERNAL MEDICAL SUMMARY RPT | Continuity of Care Document ---
:1990 Author Organization [facility] Address [address] [place] [address] Phone Allergies and Intolerances date description facility type (no date) Sulfa (Sulfonamide Antibiotics) [facility] (unknown) (no date) amoxicillin [facility] (unknown) (no date) azithromycin [facility] (unknown) (no date) chlorhexidine [facility] (unknown) (no date) latex [facility] (unknown) Encounters No information. Functional Status No information. Immunizations No information. Medications No information. Problems date description facility 2022-08-04 23:21 Essential (primary) hypertension [facility] 2022-08-04 23:21 33 weeks gestation of [facility] 2022-08-06 16:17 Essential (primary) hypertension [facility] 2022-08-06 16:17 33 weeks gestation of [facility] 2022-09-02 17:04 Essential (primary) hypertension [facility] 2022-09-02 17:04 Unspecified pre-eclampsia, unspecified [facility] trimester 2022-09-02 17:04 Other immediate hemorrhage [facility] 2022-09-04 18:01 Essential (primary) hypertension [facility] 2022-09-04 18:01 Unspecified pre-eclampsia, unspecified [facility] trimester 2022-09-04 18:01 Other immediate hemorrhage [facility] 2022-09-04 18:01 Encounter for screening for other suspe cted [facility] endocrine disord Procedures No information. Results/Labs test date author facility value unit interpret ation Result panel 1 (unknown) (no (unknown) (unknown) (no value) (units (unk nown) date) unknown) (unknown) (no (unknown) (unknown) (1) 33 weeks (units (u nknown) date) gestation of unknown) : (unknown) (no (unknown) (unknown) (2) Essential (units ( unknown) date) hypertension: unknown) (unknown) (no (unknown) (unknown) [id number] (units (unkno wn) date) unknown) (unknown) (no (unknown) (unknown) 32yo at (units (u nknown) date) 33w6d here for unknown) NST for chronic HTN. NST reactive. Continue (unknown) (no (unknown) (unknown) 32yo at (units (u nknown) date) 33w6d here for unknown) NST for chronic HTN. Pt denies any concerning (unknown) (no (unknown) (unknown) Age/Sex: 32 / F (units (unknown) date) unknown) (unknown) (no (unknown) (unknown) Chronic cough (units ( unknown) date) (-2000) unknown) (unknown) (no (unknown) (unknown) Comments/Additi (units (unknown) date) onal reasons for unknown) admission: (unknown) (no (unknown) (unknown) : 1990 (units (unknown) date) Acct:[id number] unknown) (unknown) (no (unknown) (unknown) Date of (units (unkno wn) date) Service: unknown) 08/04/22 (unknown) (no (unknown) (unknown) Date of (units (unkno wn) date) evaluation: unknown) 08/04/22 (unknown) (no (unknown) (unknown) Depression (units (unk nown) date) unknown) (unknown) (no (unknown) (unknown) Diagnosis, (units (unk nown) date) Plan/Disposition unknown) (unknown) (no (unknown) (unknown) Family History (units (unknown) date) (Reviewed unknown) 07/30/22 @ 11:31 by Karina Gaytan DO) (unknown) (no (unknown) (unknown) Final Diagnosis (units (unknown) date) unknown) (unknown) (no (unknown) (unknown) Grandfather (units (un known) date) Hypertension unknown) (unknown) (no (unknown) (unknown) Grandmother (units (un known) date) Type 2 diabetes unknown) mellitus (unknown) (no (unknown) (unknown) Hypertension (units (u nknown) date) unknown) (unknown) (no (unknown) (unknown) [facility] (units (unknown) date) [address] unknown) [place] [address] (unknown) (no (unknown) (unknown) Labor and (units (unkn own) date) Delivery Triage unknown) Note (unknown) (no (unknown) (unknown) Medical History (units (unknown) date) (Reviewed unknown) 07/30/22 @ 11:31 by Karina Gaytan DO) (unknown) (no (unknown) (unknown) Mother Age: 51 (units (unknown) date) Stroke unknown) (unknown) (no (unknown) (unknown) OB Disposition: (units (unknown) date) home unknown) (unknown) (no (unknown) (unknown) PFSH (units (unkno wn) date) unknown) (unknown) (no (unknown) (unknown) PUPP (pruritic (units (unknown) date) urticarial unknown) papules and plaques of ) (unknown) (no (unknown) (unknown) Patient: (units (unkno wn) date) Ga Hagan unknown) MR#: [id number] (unknown) (no (unknown) (unknown) Plan/Dispositio (units (unknown) date) n unknown) (unknown) (no (unknown) (unknown) Plan: (units (unkno wn) date) unknown) (unknown) (no (unknown) (unknown) Plantar (units (unkno wn) date) fasciitis unknown) (-2016) (unknown) (no (unknown) (unknown) Primary OB (units (unk nown) date) Provider: unknown) Rabia Gooden (unknown) (no (unknown) (unknown) Provider: (units (unkn own) date) Rabia Gooden unknown) (unknown) (no (unknown) (unknown) Psoriasis (units (unkn own) date) unknown) (unknown) (no (unknown) (unknown) Signed By: (units (unk nown) date) unknown) (unknown) (no (unknown) (unknown) Smoking Status: (units (unknown) date) Never smoker unknown) (unknown) (no (unknown) (unknown) Social History (units (unknown) date) (Reviewed unknown) 07/30/22 @ 11:31 by Karina Gaytan DO) (unknown) (no (unknown) (unknown) Status post (units (un known) date) appendectomy unknown) (-1993) (unknown) (no (unknown) (unknown) Status post (units (un known) date) unknown) delivery (01/06/11) (unknown) (no (unknown) (unknown) Status post (units (un known) date) unknown) delivery (unknown) (no (unknown) (unknown) Status: Acute (units ( unknown) date) unknown) (unknown) (no (unknown) (unknown) Status: Chronic (units (unknown) date) unknown) (unknown) (no (unknown) (unknown) Surgical (units (unkno wn) date) History unknown) (unknown) (no (unknown) (unknown) Type(s) of (units (unk nown) date) exercise: none unknown) (unknown) (no (unknown) (unknown) Visit (units (unkno wn) date) Information unknown) (unknown) (no (unknown) (unknown) alcohol intake: (units (unknown) date) former unknown) (unknown) (no (unknown) (unknown) caffeine: Yes (units ( unknown) date) unknown) (unknown) (no (unknown) (unknown) carbon monox (units (u nknown) date) detector in unknown) home: Yes (unknown) (no (unknown) (unknown) current (units (unkno wn) date) occupational unknown) exposures/hazard s: No (unknown) (no (unknown) (unknown) daily servings (units (unknown) date) fruits/ve-1 unknown) (unknown) (no (unknown) (unknown) do you feel (units (un known) date) safe at home: unknown) Yes (unknown) (no (unknown) (unknown) during the past (units (unknown) date) year weight has: unknown) remained stable (unknown) (no (unknown) (unknown) education (units (unkn own) date) level: other unknown) (unknown) (no (unknown) (unknown) fire (units (unkno wn) date) extinguisher in unknown) home: Yes (unknown) (no (unknown) (unknown) firearms in (units (un known) date) home: No unknown) (unknown) (no (unknown) (unknown) household (units (unkn own) date) members: unknown) significant other and children (unknown) (no (unknown) (unknown) housing: (units (unkno wn) date) apartment unknown) (unknown) (no (unknown) (unknown) lives (units (unkno wn) date) independently: unknown) Yes (unknown) (no (unknown) (unknown) marital status: (units (unknown) date) unmarried,living unknown) together (unknown) (no (unknown) (unknown) number of (units (unkn own) date) children: 2 unknown) (unknown) (no (unknown) (unknown) occupational (units (u nknown) date) status: employed unknown) (unknown) (no (unknown) (unknown) pets and (units (unkno wn) date) animals: Yes (1 unknown) cat (pt is not managing litter box)) (unknown) (no (unknown) (unknown) regular (units (unkno wn) date) unknown) testing. (unknown) (no (unknown) (unknown) seatbelt use: (units ( unknown) date) always unknown) (unknown) (no (unknown) (unknown) second hand (units (un known) date) exposure: No unknown) (unknown) (no (unknown) (unknown) signs/symptoms. (units (unknown) date) She is feeling unknown) her baby move regularly. (unknown) (no (unknown) (unknown) special fly (units ( unknown) date) needs: No unknown) (unknown) (no (unknown) (unknown) substance use (units ( unknown) date) type: marijuana unknown) (unknown) (no (unknown) (unknown) water heater (units (u nknown) date) temp set < 120 unknown) deg: Yes (Will check and adjust if needed) (unknown) (no (unknown) (unknown) well-balanced (units ( unknown) date) diet: about half unknown) the time (unknown) (no (unknown) (unknown) working smoke (units ( unknown) date) detector in unknown) home: Yes Result panel 2 (unknown) (no (unknown) (unknown) (no value) (units (unk nown) date) unknown) (unknown) (no (unknown) (unknown) [id number] (units (unkno wn) date) unknown) (unknown) (no (unknown) (unknown) 1. Single living (units (unknown) date) intrauterine unknown) gestation. (unknown) (no (unknown) (unknown) 08/04/22 (units (unkno wn) date) unknown) (unknown) (no (unknown) (unknown) [address] (units (unknown) date) unknown) (unknown) (no (unknown) (unknown) 2. Appropriate (units (unknown) date) interval growth. unknown) (unknown) (no (unknown) (unknown) Abdominal (units (unkn own) date) circumference: unknown) 299 mm; 33 weeks 6 days (unknown) (no (unknown) (unknown) Accession (units (unkn own) date) Number: unknown) [id number] (unknown) (no (unknown) (unknown) Age/Sex: 32 / F (units (unknown) date) Date of Service: unknown) (unknown) (no (unknown) (unknown) Amniotic fluid (units (unknown) date) index: 14.5 cm, unknown) normal range is 5-24 cm. (unknown) (no (unknown) (unknown) [place] (units ( unknown) date) [id number] unknown) (unknown) (no (unknown) (unknown) Approved by: (units (u nknown) date) Gus Mosquera, raz Serrato on 08/04/2022 at 14:02 (unknown) (no (unknown) (unknown) Biparietal (units (unk nown) date) diameter: 87 mm; unknown) 35 weeks 2 days (unknown) (no (unknown) (unknown) COMPARISON: (units (un known) date) [facility], unknown) US, OB LIMITED, 07/01/2022, 11:02. (unknown) (no (unknown) (unknown) Composite (units (unkn own) date) gestational age unknown) from present scan: 34 weeks 3 days (unknown) (no (unknown) (unknown) Current survey (units (unknown) date) of anatomy unknown) includes normal chest/diaphragm, (unknown) (no (unknown) (unknown) : 1990 (units (unknown) date) Acct:[id number] unknown) (unknown) (no (unknown) (unknown) Dictated by: (units (u nknown) date) raz Houston M.D. on 08/04/2022 at 14:00 (unknown) (no (unknown) (unknown) Endovaginal (units (un known) date) scanning: No unknown) (unknown) (no (unknown) (unknown) Estimated date (units (unknown) date) of delivery (CLAU) unknown) from first dating scan: 09/11/2022. (unknown) (no (unknown) (unknown) Estimated (units (unknown) date) weight and unknown) percentile: 2339 g, which is at the 49th percentile (unknown) (no (unknown) (unknown) Estimated (units (unkn own) date) gestational age unknown) based on initial OB ultrasound: 33 weeks 6 days (unknown) (no (unknown) (unknown) FINDINGS: (units (unkn own) date) unknown) (unknown) (no (unknown) (unknown) Femur length: 65 (units (unknown) date) mm; 33 weeks 4 unknown) days (unknown) (no (unknown) (unknown) (units (unkno wn) date) biometrics: unknown) (unknown) (no (unknown) (unknown) heart (units (un known) date) rate: 122 beats unknown) per minute. (unknown) (no (unknown) (unknown) First dating (units (u nknown) date) scan (date and unknown) location): 04/29/2022. (unknown) (no (unknown) (unknown) General: A (units (unk nown) date) single living unknown) intrauterine gestation is present. (unknown) (no (unknown) (unknown) Head (units (unkno wn) date) circumference: unknown) 314 mm; 35 weeks 1 day (unknown) (no (unknown) (unknown) IMPRESSION: (units (un known) date) unknown) (unknown) (no (unknown) (unknown) INDICATIONS: (units (u nknown) date) HYPERTENSION AND unknown) GESTATIONAL DIABETES (unknown) (no (unknown) (unknown) [facility] (units (unknown) date) unknown) (unknown) (no (unknown) (unknown) LMP-based (units (unkn own) date) estimated date of unknown) delivery (CLAU): Not applicable. (unknown) (no (unknown) (unknown) Last menstrual (units (unknown) date) period (LMP): unknown) Unknown. (unknown) (no (unknown) (unknown) Loc: LABOR (units (unk nown) date) [id number] unknown) (unknown) (no (unknown) (unknown) Maternal (units (unkno wn) date) cervical canal: unknown) 3.6 cm long. Normal lower limit is 2.5 cm. (unknown) (no (unknown) (unknown) OUTSIDE/PRIOR (units ( unknown) date) DATING DATA: unknown) (unknown) (no (unknown) (unknown) Ordering (units (unkno wn) date) Provider: unknown) Rabia Gooden MD (unknown) (no (unknown) (unknown) PROCEDURE: US OB (units (unknown) date) LIMITED unknown) (unknown) (no (unknown) (unknown) Patient: (units (unkno wn) date) Ga Hagan unknown) MR#: [id number] (unknown) (no (unknown) (unknown) Placenta: (units (unkn own) date) Placental unknown) position is anterior , without previa. (unknown) (no (unknown) (unknown) Presentation: (units ( unknown) date) Breech. unknown) (unknown) (no (unknown) (unknown) Procedure: US OB (units (unknown) date) limited unknown) (unknown) (no (unknown) (unknown) Signed (units (unkno wn) date) unknown) (unknown) (no (unknown) (unknown) Single deepest (units (unknown) date) vertical pocket unknown) is 6 cm. (unknown) (no (unknown) (unknown) TECHNIQUE: (units (unk nown) date) Real-time unknown) scanning was performed of the fetus, with image (unknown) (no (unknown) (unknown) To assist (units (unkn own) date) unknown) (unknown) (no (unknown) (unknown) Ultrasound (units (unk nown) date) Report unknown) (unknown) (no (unknown) (unknown) We strive to (units (u nknown) date) produce accurate, unknown) complete, and clear reports of imaging services. (unknown) (no (unknown) (unknown) and voice (units (unkn own) date) recognition unknown) software. Therefore, it may contain abnormal punctuation, (unknown) (no (unknown) (unknown) biometric (units (unkn own) date) measurements. unknown) Biophysical profile was also obtained. (unknown) (no (unknown) (unknown) documentation (units ( unknown) date) and unknown) (unknown) (no (unknown) (unknown) for (units (unkno wn) date) unknown) (unknown) (no (unknown) (unknown) gestational age (units (unknown) date) unknown) (unknown) (no (unknown) (unknown) inaccuracies. (units ( unknown) date) unknown) (unknown) (no (unknown) (unknown) insertions (units (unk nown) date) and/or omissions. unknown) Occasional wrong-word or sound-alike substitutions (unknown) (no (unknown) (unknown) may (units (unkno wn) date) unknown) (unknown) (no (unknown) (unknown) occur. Though we (units (unknown) date) review the report unknown) and make efforts to correct it, we do (unknown) (no (unknown) (unknown) recommend that (units (unknown) date) unknown) (unknown) (no (unknown) (unknown) renal region, (units ( unknown) date) and urinary unknown) bladder/pelvis. Left renal region is not well seen. (unknown) (no (unknown) (unknown) stomach/abdomen, (units (unknown) date) right unknown) (unknown) (no (unknown) (unknown) templates (units (unkn own) date) unknown) (unknown) (no (unknown) (unknown) the report be (units ( unknown) date) read carefully in unknown) proper context to recognize any text (unknown) (no (unknown) (unknown) us in improving (units (unknown) date) patient care, unknown) this report was composed using standard report Result panel 3 (unknown) (no date) (unknown) (unknown) 0 /ul (unkn own) (unknown) (no date) (unknown) (unknown) 0.2 % (unkn own) (unknown) (no date) (unknown) (unknown) 1.2 % (unkn own) (unknown) (no date) (unknown) (unknown) 100 /ul (unkn own) (unknown) (no date) (unknown) (unknown) 12.8 % (unkn own) (unknown) (no date) (unknown) (unknown) 15.0 % (unkn own) (unknown) (no date) (unknown) (unknown) 177 x10 3/ul (unkn own) (unknown) (no date) (unknown) (unknown) 2.92 x10 6/ul (unkn own) (unknown) (no date) (unknown) (unknown) 27.1 % (unkn own) (unknown) (no date) (unknown) (unknown) 32.8 pg (unkn own) (unknown) (no date) (unknown) (unknown) 35.3 % (unkn own) (unknown) (no date) (unknown) (unknown) 5500 /ul (unkn own) (unknown) (no date) (unknown) (unknown) 600 /ul (unkn own) (unknown) (no date) (unknown) (unknown) 7.1 x10 3/ul (unkn own) (unknown) (no date) (unknown) (unknown) 77.2 % (unkn own) (unknown) (no date) (unknown) (unknown) 8.6 % (unkn own) (unknown) (no date) (unknown) (unknown) 9.6 g/dl (unkn own) (unknown) (no date) (unknown) (unknown) 900 /ul (unkn own) (unknown) (no date) (unknown) (unknown) 92.7 fl (unkn own) Result panel 4 (unknown) (no date) (unknown) (unknown) > 60 ml/min (unkn own) (unknown) (no date) (unknown) (unknown) > 60 ml/min (unkn own) (unknown) (no date) (unknown) (unknown) 0.4 mg/dl (unkn own) (unknown) (no date) (unknown) (unknown) 0.67 mg/dl (unkn own) (unknown) (no date) (unknown) (unknown) 1.0 (units unknown) (unknown) (unknown) (no date) (unknown) (unknown) 10 mg/dl (unkn own) (unknown) (no date) (unknown) (unknown) 10.2 mg/dl (unkn own) (unknown) (no date) (unknown) (unknown) 100 u/l (unkn own) (unknown) (no date) (unknown) (unknown) 105 mmol/l (unkn own) (unknown) (no date) (unknown) (unknown) 137 mmol/l (unkn own) (unknown) (no date) (unknown) (unknown) 14.9 (units unknown) (unknown) (unknown) (no date) (unknown) (unknown) 22 mmol/l (unkn own) (unknown) (no date) (unknown) (unknown) 25 iu/l (unkn own) (unknown) (no date) (unknown) (unknown) 3.4 g/dl (unkn own) (unknown) (no date) (unknown) (unknown) 3.5 g/dl (unkn own) (unknown) (no date) (unknown) (unknown) 3.5 mmol/l (unkn own) (unknown) (no date) (unknown) (unknown) 31 iu/l (unkn own) (unknown) (no date) (unknown) (unknown) 6.2 mg/dl (unkn own) (unknown) (no date) (unknown) (unknown) 6.9 g/dl (unkn own) (unknown) (no date) (unknown) (unknown) 79 mg/dl (unkn own) (unknown) (no date) (unknown) (unknown) 79 mg/dl (unkn own) Result panel 5 (unknown) (no date) (unknown) (unknown) 0.36 gram/24h (unkn own) (unknown) (no date) (unknown) (unknown) 18 mg/dl (unkn own) (unknown) (no date) (unknown) (unknown) 48.8 mg/dl (unkn own) Result panel 6 (unknown) (no (unknown) (unknown) (no value) (units (unk nown) date) unknown) (unknown) (no (unknown) (unknown) (1) 33 weeks (units (u nknown) date) gestation of unknown) : (unknown) (no (unknown) (unknown) (2) Essential (units ( unknown) date) hypertension: unknown) (unknown) (no (unknown) (unknown) [id number] (units (unkno wn) date) unknown) (unknown) (no (unknown) (unknown) 08/04/22 (units (unkno wn) date) Unknown unknown) (unknown) (no (unknown) (unknown) 32yo at (units (u nknown) date) 33w6d here for unknown) NST for chronic HTN. NST reactive. Continue (unknown) (no (unknown) (unknown) 32yo at (units (u nknown) date) 33w6d here for unknown) NST for chronic HTN. Pt denies any concerning (unknown) (no (unknown) (unknown) Age/Sex: 32 / F (units (unknown) date) unknown) (unknown) (no (unknown) (unknown) Chronic cough (units ( unknown) date) (-2000) unknown) (unknown) (no (unknown) (unknown) Comments/Additi (units (unknown) date) onal reasons for unknown) admission: (unknown) (no (unknown) (unknown) : 1990 (units (unknown) date) Acct:[id number] unknown) (unknown) (no (unknown) (unknown) Date of (units (unkno wn) date) Service: unknown) 08/04/22 (unknown) (no (unknown) (unknown) Date of (units (unkno wn) date) evaluation: unknown) 08/04/22 (unknown) (no (unknown) (unknown) Depression (units (unk nown) date) unknown) (unknown) (no (unknown) (unknown) Diagnosis, (units (unk nown) date) Plan/Disposition unknown) (unknown) (no (unknown) (unknown) Family History (units (unknown) date) (Reviewed unknown) 07/30/22 @ 11:31 by Karina Gaytan DO) (unknown) (no (unknown) (unknown) Final Diagnosis (units (unknown) date) unknown) (unknown) (no (unknown) (unknown) Grandfather (units (un known) date) Hypertension unknown) (unknown) (no (unknown) (unknown) Grandmother (units (un known) date) Type 2 diabetes unknown) mellitus (unknown) (no (unknown) (unknown) Hypertension (units (u nknown) date) unknown) (unknown) (no (unknown) (unknown) [facility] (units (unknown) date) [address] unknown) [place] [id number] (unknown) (no (unknown) (unknown) Labor and (units (unkn own) date) Delivery Triage unknown) Note (unknown) (no (unknown) (unknown) Labs (units (unkno wn) date) unknown) (unknown) (no (unknown) (unknown) Medical History (units (unknown) date) (Reviewed unknown) 07/30/22 @ 11:31 by Karina Gaytan DO) (unknown) (no (unknown) (unknown) Mother Age: 51 (units (unknown) date) Stroke unknown) (unknown) (no (unknown) (unknown) OB Disposition: (units (unknown) date) home unknown) (unknown) (no (unknown) (unknown) Objective (units (unkn own) date) unknown) (unknown) (no (unknown) (unknown) PFSH (units (unkno wn) date) unknown) (unknown) (no (unknown) (unknown) PUPP (pruritic (units (unknown) date) urticarial unknown) papules and plaques of ) (unknown) (no (unknown) (unknown) Patient: (units (unkno wn) date) Ga Hagan unknown) MR#: [id number] (unknown) (no (unknown) (unknown) Plan/Dispositio (units (unknown) date) n unknown) (unknown) (no (unknown) (unknown) Plan: (units (unkno wn) date) unknown) (unknown) (no (unknown) (unknown) Plantar (units (unkno wn) date) fasciitis unknown) (-2015) (unknown) (no (unknown) (unknown) Primary OB (units (unk nown) date) Provider: unknown) Rabia Gooden (unknown) (no (unknown) (unknown) Provider: (units (unkn own) date) Rabia Gooden unknown) MD (unknown) (no (unknown) (unknown) Psoriasis (units (unkn own) date) unknown) (unknown) (no (unknown) (unknown) Result (units (unkno wn) date) Diagrams: unknown) (unknown) (no (unknown) (unknown) Signed By: (units (unk nown) date) unknown) (unknown) (no (unknown) (unknown) Smoking Status: (units (unknown) date) Never smoker unknown) (unknown) (no (unknown) (unknown) Social History (units (unknown) date) (Reviewed unknown) 07/30/22 @ 11:31 by Karina Gaytan DO) (unknown) (no (unknown) (unknown) Status post (units (un known) date) appendectomy unknown) (-1993) (unknown) (no (unknown) (unknown) Status post (units (un known) date) unknown) delivery (01/06/11) (unknown) (no (unknown) (unknown) Status post (units (un known) date) unknown) delivery (unknown) (no (unknown) (unknown) Status: Acute (units ( unknown) date) unknown) (unknown) (no (unknown) (unknown) Status: Chronic (units (unknown) date) unknown) (unknown) (no (unknown) (unknown) Surgical (units (unkno wn) date) History unknown) (unknown) (no (unknown) (unknown) Type(s) of (units (unk nown) date) exercise: none unknown) (unknown) (no (unknown) (unknown) Visit (units (unkno wn) date) Information unknown) (unknown) (no (unknown) (unknown) [Embedded Image (units (unknown) date) Not Available] unknown) (unknown) (no (unknown) (unknown) alcohol intake: (units (unknown) date) former unknown) (unknown) (no (unknown) (unknown) caffeine: Yes (units ( unknown) date) unknown) (unknown) (no (unknown) (unknown) carbon monox (units (u nknown) date) detector in unknown) home: Yes (unknown) (no (unknown) (unknown) current (units (unkno wn) date) occupational unknown) exposures/hazard s: No (unknown) (no (unknown) (unknown) daily servings (units (unknown) date) fruits/ve-1 unknown) (unknown) (no (unknown) (unknown) do you feel (units (un known) date) safe at home: unknown) Yes (unknown) (no (unknown) (unknown) during the past (units (unknown) date) year weight has: unknown) remained stable (unknown) (no (unknown) (unknown) education (units (unkn own) date) level: other unknown) (unknown) (no (unknown) (unknown) fire (units (unkno wn) date) extinguisher in unknown) home: Yes (unknown) (no (unknown) (unknown) firearms in (units (un known) date) home: No unknown) (unknown) (no (unknown) (unknown) household (units (unkn own) date) members: unknown) significant other and children (unknown) (no (unknown) (unknown) housing: (units (unkno wn) date) apartment unknown) (unknown) (no (unknown) (unknown) lives (units (unkno wn) date) independently: unknown) Yes (unknown) (no (unknown) (unknown) marital status: (units (unknown) date) unmarried,living unknown) together (unknown) (no (unknown) (unknown) number of (units (unkn own) date) children: 2 unknown) (unknown) (no (unknown) (unknown) occupational (units (u nknown) date) status: employed unknown) (unknown) (no (unknown) (unknown) pets and (units (unkno wn) date) animals: Yes (1 unknown) cat (pt is not managing litter box)) (unknown) (no (unknown) (unknown) regular (units (unkno wn) date) unknown) testing. (unknown) (no (unknown) (unknown) seatbelt use: (units ( unknown) date) always unknown) (unknown) (no (unknown) (unknown) second hand (units (un known) date) exposure: No unknown) (unknown) (no (unknown) (unknown) signs/symptoms. (units (unknown) date) She is feeling unknown) her baby move regularly. (unknown) (no (unknown) (unknown) special fly (units ( unknown) date) needs: No unknown) (unknown) (no (unknown) (unknown) substance use (units ( unknown) date) type: marijuana unknown) (unknown) (no (unknown) (unknown) water heater (units (u nknown) date) temp set < 120 unknown) deg: Yes (Will check and adjust if needed) (unknown) (no (unknown) (unknown) well-balanced (units ( unknown) date) diet: about half unknown) the time (unknown) (no (unknown) (unknown) working smoke (units ( unknown) date) detector in unknown) home: Yes Result panel 7 (unknown) (no (unknown) (unknown) (no value) (units (unk nown) date) unknown) (unknown) (no (unknown) (unknown) (1) 33 weeks (units (u nknown) date) gestation of unknown) : (unknown) (no (unknown) (unknown) (2) Essential (units ( unknown) date) hypertension: unknown) (unknown) (no (unknown) (unknown) [id number] (units (unkno wn) date) unknown) (unknown) (no (unknown) (unknown) 08/04/22 1613 (units ( unknown) date) unknown) (unknown) (no (unknown) (unknown) 08/04/22 Unknown (units (unknown) date) unknown) (unknown) (no (unknown) (unknown) 32yo at (units (u nknown) date) 33w6d here for NST unknown) for chronic HTN. NST reactive. BP was elevated (unknown) (no (unknown) (unknown) 32yo at (units (u nknown) date) 33w6d here for NST unknown) for chronic HTN. Pt denies any concerning (unknown) (no (unknown) (unknown) Age/Sex: 32 / F (units (unknown) date) unknown) (unknown) (no (unknown) (unknown) Chronic cough (units ( unknown) date) (-2000) unknown) (unknown) (no (unknown) (unknown) Comments/Addition (units (unknown) date) al reasons for unknown) admission: (unknown) (no (unknown) (unknown) : 1990 (units (unknown) date) Acct:[id number] unknown) (unknown) (no (unknown) (unknown) Date of Service: (units (unknown) date) 08/04/22 unknown) (unknown) (no (unknown) (unknown) Date of (units (unkno wn) date) evaluation: unknown) 08/04/22 (unknown) (no (unknown) (unknown) Depression (units (unk nown) date) unknown) (unknown) (no (unknown) (unknown) Diagnosis, (units (unk nown) date) Plan/Disposition unknown) (unknown) (no (unknown) (unknown) Family History (units (unknown) date) (Reviewed 07/30/22 unknown) @ 11:31 by Karina Gaytan DO) (unknown) (no (unknown) (unknown) Final Diagnosis (units (unknown) date) unknown) (unknown) (no (unknown) (unknown) Grandfather (units (un known) date) Hypertension unknown) (unknown) (no (unknown) (unknown) Grandmother Type (units (unknown) date) 2 diabetes unknown) mellitus (unknown) (no (unknown) (unknown) Hypertension (units (u nknown) date) unknown) (unknown) (no (unknown) (unknown) [facility] (units (unknown) date) [address] [place] [address] Street unknown) [place] [address] (unknown) (no (unknown) (unknown) Labor and (units (unkn own) date) Delivery Triage unknown) Note (unknown) (no (unknown) (unknown) Labs (units (unkno wn) date) unknown) (unknown) (no (unknown) (unknown) Medical History (units (unknown) date) (Reviewed 07/30/22 unknown) @ 11:31 by Karina Gaytan DO) (unknown) (no (unknown) (unknown) Mother Age: 51 (units (unknown) date) Stroke unknown) (unknown) (no (unknown) (unknown) OB Disposition: (units (unknown) date) home unknown) (unknown) (no (unknown) (unknown) Objective (units (unkn own) date) unknown) (unknown) (no (unknown) (unknown) PFSH (units (unkno wn) date) unknown) (unknown) (no (unknown) (unknown) PUPP (pruritic (units (unknown) date) urticarial papules unknown) and plaques of ) (unknown) (no (unknown) (unknown) Patient: (units (unkno wn) date) Ga Hagan L unknown) MR#: [id number] (unknown) (no (unknown) (unknown) Plan/Disposition (units (unknown) date) unknown) (unknown) (no (unknown) (unknown) Plan: (units (unkno wn) date) unknown) (unknown) (no (unknown) (unknown) Plantar fasciitis (units (unknown) date) (-2015) unknown) (unknown) (no (unknown) (unknown) Primary OB (units (unk nown) date) Provider: Rabia unknownElidia Gooden (unknown) (no (unknown) (unknown) Provider: (units (unkn own) date) Rabia Gooden MD unknown) (unknown) (no (unknown) (unknown) Psoriasis (units (unkn own) date) unknown) (unknown) (no (unknown) (unknown) Result Diagrams: (units (unknown) date) unknown) (unknown) (no (unknown) (unknown) Signed (units (unkno wn) date) By:<Electronically unknown) signed by Rabia Gooden MD> (unknown) (no (unknown) (unknown) Smoking Status: (units (unknown) date) Never smoker unknown) (unknown) (no (unknown) (unknown) Social History (units (unknown) date) (Reviewed 07/30/22 unknown) @ 11:31 by Karina Gaytan DO) (unknown) (no (unknown) (unknown) Status post (units (un known) date) appendectomy unknown) () (unknown) (no (unknown) (unknown) Status post (units (un known) date) delivery unknown) (01/06/11) (unknown) (no (unknown) (unknown) Status post (units (un known) date) delivery unknown) (unknown) (no (unknown) (unknown) Status: Acute (units ( unknown) date) unknown) (unknown) (no (unknown) (unknown) Status: Chronic (units (unknown) date) unknown) (unknown) (no (unknown) (unknown) Surgical History (units (unknown) date) (Reviewed 07/30/22 unknown) @ 11:31 by Karian Gaytan DO) (unknown) (no (unknown) (unknown) Type(s) of (units (unk nown) date) exercise: none unknown) (unknown) (no (unknown) (unknown) Visit Information (units (unknown) date) unknown) (unknown) (no (unknown) (unknown) [Embedded Image (units (unknown) date) Not Available] unknown) (unknown) (no (unknown) (unknown) alcohol intake: (units (unknown) date) former unknown) (unknown) (no (unknown) (unknown) based on elevated (units (unknown) date) protein/creatinine unknown) article. 24hr urine protein was ordered (unknown) (no (unknown) (unknown) caffeine: Yes (units ( unknown) date) unknown) (unknown) (no (unknown) (unknown) carbon monox (units (u nknown) date) detector in home: unknown) Yes (unknown) (no (unknown) (unknown) current (units (unkno wn) date) occupational unknown) exposures/hazards: No (unknown) (no (unknown) (unknown) daily servings (units (unknown) date) fruits/ve-1 unknown) (unknown) (no (unknown) (unknown) discussed today. (units (unknown) date) Plan for repeat unknown) at 37wks. Will also have pt (unknown) (no (unknown) (unknown) do you feel safe (units (unknown) date) at home: Yes unknown) (unknown) (no (unknown) (unknown) during the past (units (unknown) date) year weight has: unknown) remained stable (unknown) (no (unknown) (unknown) education level: (units (unknown) date) other unknown) (unknown) (no (unknown) (unknown) fire extinguisher (units (unknown) date) in home: Yes unknown) (unknown) (no (unknown) (unknown) firearms in home: (units (unknown) date) No unknown) (unknown) (no (unknown) (unknown) here in L+D. Had (units (unknown) date) one value in unknown) severe range, all others elevated but not (unknown) (no (unknown) (unknown) household (units (unkn own) date) members: unknown) significant other and children (unknown) (no (unknown) (unknown) housing: (units (unkno wn) date) apartment unknown) (unknown) (no (unknown) (unknown) increase iron (units ( unknown) date) supplementation to unknown) BID. (unknown) (no (unknown) (unknown) lives (units (unkno wn) date) independently: Yes unknown) (unknown) (no (unknown) (unknown) marital status: (units (unknown) date) unmarried,living unknown) together (unknown) (no (unknown) (unknown) number of (units (unkn own) date) children: 2 unknown) (unknown) (no (unknown) (unknown) occupational (units (u nknown) date) status: employed unknown) (unknown) (no (unknown) (unknown) pets and animals: (units (unknown) date) Yes (1 cat (pt is unknown) not managing litter box)) (unknown) (no (unknown) (unknown) seatbelt use: (units ( unknown) date) always unknown) (unknown) (no (unknown) (unknown) second hand (units (un known) date) exposure: No unknown) (unknown) (no (unknown) (unknown) severe. Lab work (units (unknown) date) did not show unknown) HELLP, however is consistent with pre-eclampsia (unknown) (no (unknown) (unknown) signs/symptoms. (units (unknown) date) She is feeling her unknown) baby move regularly. (unknown) (no (unknown) (unknown) special fly (units ( unknown) date) needs: No unknown) (unknown) (no (unknown) (unknown) substance use (units ( unknown) date) type: marijuana unknown) (unknown) (no (unknown) (unknown) today, pt will (units (unknown) date) return in 24hrs unknown) for repeat injection. Growth scan appropriate (unknown) (no (unknown) (unknown) today. Continue (units (unknown) date) twice weekly unknown) testing. Strict return precautions (unknown) (no (unknown) (unknown) today. Will (units (un known) date) obtain weekly labs unknown) to evaluate for HELLP. Betamethasone given (unknown) (no (unknown) (unknown) water heater temp (units (unknown) date) set < 120 deg: Yes unknown) (Will check and adjust if needed) (unknown) (no (unknown) (unknown) well-balanced (units ( unknown) date) diet: about half unknown) the time (unknown) (no (unknown) (unknown) working smoke (units ( unknown) date) detector in home: unknown) Yes Result panel 8 (unknown) (no date) (unknown) (unknown) Negative (units (unkn own) unknown) (unknown) (no date) (unknown) (unknown) Negative (units (unkn own) unknown) Result panel 9 (unknown) (no (unknown) (unknown) (no value) (units (unk nown) date) unknown) (unknown) (no (unknown) (unknown) [id number] (units (unkno wn) date) unknown) (unknown) (no (unknown) (unknown) 12/10/14 39 8 lb (units (unknown) date) 3 oz Female unknown) live - full term (unknown) (no (unknown) (unknown) 01/06/11 41 1 9 (units (unknown) date) lb 1 oz Male unknown) live - full term (unknown) (no (unknown) (unknown) 07/15/22 Rx (units (un known) date) unknown) (unknown) (no (unknown) (unknown) 08/04/22 (units (unkno wn) date) 08/04/22 08/04/22 unknown) (unknown) (no (unknown) (unknown) 08/04/22 Unknown (units (unknown) date) unknown) (unknown) (no (unknown) (unknown) 08/04/22 (units (unkno wn) date) unknown) (unknown) (no (unknown) (unknown) 12:38 (units (unkno wn) date) unknown) (unknown) (no (unknown) (unknown) 13:55 17:38 (units (un known) date) Unknown unknown) (unknown) (no (unknown) (unknown) :38 (units (unkno wn) date) unknown) (unknown) (no (unknown) (unknown) ALT 25 (units (unkno wn) date) unknown) (unknown) (no (unknown) (unknown) ALT (units (unkno wn) date) unknown) (unknown) (no (unknown) (unknown) AST 31 (units (unkno wn) date) unknown) (unknown) (no (unknown) (unknown) AST (units (unkno wn) date) unknown) (unknown) (no (unknown) (unknown) Age/Sex: 32 / F (units (unknown) date) unknown) (unknown) (no (unknown) (unknown) Albumin 3.5 (units (un known) date) unknown) (unknown) (no (unknown) (unknown) Albumin (units (unkno wn) date) unknown) (unknown) (no (unknown) (unknown) Albumin/Globulin (units (unknown) date) Ratio 1.0 unknown) (unknown) (no (unknown) (unknown) Albumin/Globulin (units (unknown) date) Ratio unknown) (unknown) (no (unknown) (unknown) Alkaline (units (unkno wn) date) Phosphatase 100 unknown) (unknown) (no (unknown) (unknown) Alkaline (units (unkno wn) date) Phosphatase unknown) (unknown) (no (unknown) (unknown) Allergies (units (unkn own) date) unknown) (unknown) (no (unknown) (unknown) Allergy/AdvReac (units (unknown) date) Type Severity unknown) Reaction Status Date / Time (unknown) (no (unknown) (unknown) Antibiotics) (units (u nknown) date) unknown) (unknown) (no (unknown) (unknown) Antibody Screen (units (unknown) date) Negative 03/16/22 unknown) 12:38 (unknown) (no (unknown) (unknown) Assessment and (units (unknown) date) Plan narrative: unknown) (unknown) (no (unknown) (unknown) Assessment and (units (unknown) date) Plan unknown) (unknown) (no (unknown) (unknown) BUN 10 (units (unkno wn) date) unknown) (unknown) (no (unknown) (unknown) BUN (units (unkno wn) date) unknown) (unknown) (no (unknown) (unknown) BUN/Creatinine (units (unknown) date) Ratio 14.9 unknown) (unknown) (no (unknown) (unknown) BUN/Creatinine (units (unknown) date) Ratio unknown) (unknown) (no (unknown) (unknown) Baseline (units (unknown) date) heart rate: 130 unknown) (unknown) (no (unknown) (unknown) Baso # (Auto) 0 (units (unknown) date) unknown) (unknown) (no (unknown) (unknown) Baso # (Auto) (units ( unknown) date) unknown) (unknown) (no (unknown) (unknown) Baso % (Auto) (units ( unknown) date) 0.2 unknown) (unknown) (no (unknown) (unknown) Baso % (Auto) (units ( unknown) date) unknown) (unknown) (no (unknown) (unknown) Betamethasone (units ( unknown) date) administered at unknown) 16:13. 20mg IV Labetalol given at 17:26. 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 (unknown) (no (unknown) (unknown) Chloride 105 (units (u nknown) date) unknown) (unknown) (no (unknown) (unknown) Chloride (units (unkno wn) date) unknown) (unknown) (no (unknown) (unknown) Chronic cough (units ( unknown) date) (-2000) unknown) (unknown) (no (unknown) (unknown) Creatinine 0.67 (units (unknown) date) unknown) (unknown) (no (unknown) (unknown) Creatinine (units (unk nown) date) unknown) (unknown) (no (unknown) (unknown) Current Estimate (units (unknown) date) 09/16/22 LMP unknown) (Certain) 33w 6d (unknown) (no (unknown) (unknown) : 1990 (units (unknown) date) Acct:[id number] unknown) (unknown) (no (unknown) (unknown) Date Patient (units (u nknown) date) Seen: 08/04/22 unknown) (unknown) (no (unknown) (unknown) Date of Service: (units (unknown) date) 08/04/22 unknown) (unknown) (no (unknown) (unknown) Date of (units (unkno wn) date) admission: unknown) 08/04/22 (unknown) (no (unknown) (unknown) Date/Time (units (unkn own) date) unknown) (unknown) (no (unknown) (unknown) Dating criteria (units (unknown) date) OB: LMP confirmed unknown) by 1st trimester US (unknown) (no (unknown) (unknown) Del. Date (units (unkn own) date) GA/Weeks Labor unknown) Lgth Wt Sex Route Outcome Anesthesia Place (unknown) (no (unknown) (unknown) Delivery Date: (units (unknown) date) 12/10/14 Last unknown) Updated by: Iam HellerNTomás (unknown) (no (unknown) (unknown) Delivery Date: (units (unknown) date) 01/06/11 Last unknown) Updated by: Bianca Arenas R.N. (unknown) (no (unknown) (unknown) Delv (units (unkno wn) date) unknown) (unknown) (no (unknown) (unknown) Depression (units (unk nown) date) unknown) (unknown) (no (unknown) (unknown) CLAU Calculator (units (unknown) date) unknown) (unknown) (no (unknown) (unknown) Eos # (Auto) 100 (units (unknown) date) unknown) (unknown) (no (unknown) (unknown) Eos # (Auto) (units (u nknown) date) unknown) (unknown) (no (unknown) (unknown) Eos % (Auto) 1.2 (units (unknown) date) L unknown) (unknown) (no (unknown) (unknown) Eos % (Auto) (units (u nknown) date) unknown) (unknown) (no (unknown) (unknown) Estimated (units (unkn own) date) Delivery Date unknown) Method Current (unknown) (no (unknown) (unknown) Estimated GFR > (units (unknown) date) 60 unknown) (unknown) (no (unknown) (unknown) Estimated GFR (units ( unknown) date) unknown) (unknown) (no (unknown) (unknown) Estimated (units (unkn own) date) Gestational Age unknown) (weeks): 33w6d (unknown) (no (unknown) (unknown) Evaluation (units (unk nown) date) unknown) (unknown) (no (unknown) (unknown) Family History (units (unknown) date) (Reviewed unknown) 07/30/22 @ 11:31 by Karina Gaytan DO) (unknown) (no (unknown) (unknown) Monitor (units ( unknown) date) Decelerations: unknown) Absent (unknown) (no (unknown) (unknown) monitor (units ( unknown) date) accelerations: unknown) Present (unknown) (no (unknown) (unknown) Globulin 3.4 (units (u nknown) date) unknown) (unknown) (no (unknown) (unknown) Globulin (units (unkno wn) date) unknown) (unknown) (no (unknown) (unknown) Glucose 79 (units (unk nown) date) unknown) (unknown) (no (unknown) (unknown) Glucose (units (unkno wn) date) unknown) (unknown) (no (unknown) (unknown) Grandfather (units (un known) date) Hypertension unknown) (unknown) (no (unknown) (unknown) Grandmother Type (units (unknown) date) 2 diabetes unknown) mellitus (unknown) (no (unknown) (unknown) : 3 (units (unk nown) date) unknown) (unknown) (no (unknown) (unknown) Hct 27.1 L (units (unk nown) date) unknown) (unknown) (no (unknown) (unknown) Hct (units (unkno wn) date) unknown) (unknown) (no (unknown) (unknown) Hematocrit 27.1 (units (unknown) date) % (36-46) L unknown) 08/04/22 23:59 (unknown) (no (unknown) (unknown) Hemoglobin 9.6 (units (unknown) date) g/dL (12.0-16.0) unknown) L 08/04/22 23:59 (unknown) (no (unknown) (unknown) Hepatitis B (units (un known) date) Surface Antigen unknown) Negative s/c (NEGATIVE) 03/16/22 12 (unknown) (no (unknown) (unknown) Hepatitis C (units (un known) date) Antibody Negative unknown) s/c (NEGATIVE) 03/16/22 12:38 (unknown) (no (unknown) (unknown) Hgb 9.6 L (units (unkn own) date) unknown) (unknown) (no (unknown) (unknown) Hgb (units (unkno wn) date) unknown) (unknown) (no (unknown) (unknown) History of (units (unk nown) date) Present Condition unknown) (unknown) (no (unknown) (unknown) Home Medications (units (unknown) date) and Allergies unknown) (unknown) (no (unknown) (unknown) Home Medications (units (unknown) date) unknown) (unknown) (no (unknown) (unknown) Hypertension (units (u nknown) date) unknown) (unknown) (no (unknown) (unknown) IH 3 months (units (un known) date) unknown) (unknown) (no (unknown) (unknown) IH attempted (units (u nknown) date) unknown) (unknown) (no (unknown) (unknown) ITCHING (units (unkno wn) date) unknown) (unknown) (no (unknown) (unknown) [facility] (units (unknown) date) [address] [place] [address] unknown) [place] [address] (unknown) (no (unknown) (unknown) Laboratory (units (unk nown) date) Results - last 24 unknown) hr (unknown) (no (unknown) (unknown) Labs (units (unkno wn) date) unknown) (unknown) (no (unknown) (unknown) Labs: (units (unkno wn) date) unknown) (unknown) (no (unknown) (unknown) Last OB Lab (units (un known) date) Results: unknown) (unknown) (no (unknown) (unknown) Lymph # (Auto) (units (unknown) date) 900 L unknown) (unknown) (no (unknown) (unknown) Lymph # (Auto) (units (unknown) date) unknown) (unknown) (no (unknown) (unknown) Lymph % (Auto) (units (unknown) date) 12.8 L unknown) (unknown) (no (unknown) (unknown) Lymph % (Auto) (units (unknown) date) unknown) (unknown) (no (unknown) (unknown) MCH 32.8 (units (unkno wn) date) unknown) (unknown) (no (unknown) (unknown) MCH (units (unkno wn) date) unknown) (unknown) (no (unknown) (unknown) MCHC 35.3 (units (unkn own) date) unknown) (unknown) (no (unknown) (unknown) MCHC (units (unkno wn) date) unknown) (unknown) (no (unknown) (unknown) MCV 92.7 (units (unkno wn) date) unknown) (unknown) (no (unknown) (unknown) MCV (units (unkno wn) date) unknown) (unknown) (no (unknown) (unknown) Medical History (units (unknown) date) (Reviewed unknown) 07/30/22 @ 11:31 by Karina Gaytan DO) (unknown) (no (unknown) (unknown) Medication (units (unk nown) date) Instructions unknown) Recorded Confirmed Type (unknown) (no (unknown) (unknown) Meds (units (unkno wn) date) unknown) (unknown) (no (unknown) (unknown) [place] # (Auto) (units ( unknown) date) 600 unknown) (unknown) (no (unknown) (unknown) [place] # (Auto) (units ( unknown) date) unknown) (unknown) (no (unknown) (unknown) [place] % (Auto) (units ( unknown) date) 8.6 unknown) (unknown) (no (unknown) (unknown) [place] % (Auto) (units ( unknown) date) unknown) (unknown) (no (unknown) (unknown) Mother Age: 51 (units (unknown) date) Stroke unknown) (unknown) (no (unknown) (unknown) Neut # (Auto) (units ( unknown) date) 5500 unknown) (unknown) (no (unknown) (unknown) Neut # (Auto) (units ( unknown) date) unknown) (unknown) (no (unknown) (unknown) Neut % (Auto) (units ( unknown) date) 77.2 H unknown) (unknown) (no (unknown) (unknown) Neut % (Auto) (units ( unknown) date) unknown) (unknown) (no (unknown) (unknown) OB HPI (units (unkno wn) date) unknown) (unknown) (no (unknown) (unknown) [employer] History + (units (unknown) date) Physical unknown) (unknown) (no (unknown) (unknown) Objective (units (unkn own) date) unknown) (unknown) (no (unknown) (unknown) PFSH (units (unkno wn) date) unknown) (unknown) (no (unknown) (unknown) PUPP (pruritic (units (unknown) date) urticarial unknown) papules and plaques of ) (unknown) (no (unknown) (unknown) PUPPPS rash (units (un known) date) unknown) (unknown) (no (unknown) (unknown) Para: 2 (units (unkno wn) date) unknown) (unknown) (no (unknown) (unknown) Past Pregnancies (units (unknown) date) unknown) (unknown) (no (unknown) (unknown) Patient: (units (unkno wn) date) Ga Hagan unknown) MR#: [id number] (unknown) (no (unknown) (unknown) Plantar (units (unkno wn) date) fasciitis (-2015) unknown) (unknown) (no (unknown) (unknown) Plt Count 177 (units ( unknown) date) unknown) (unknown) (no (unknown) (unknown) Plt Count (units (unkn own) date) unknown) (unknown) (no (unknown) (unknown) Potassium 3.5 (units ( unknown) date) unknown) (unknown) (no (unknown) (unknown) Potassium (units (unkn own) date) unknown) (unknown) (no (unknown) (unknown) Preadmission (units (u nknown) date) Labs unknown) (unknown) (no (unknown) (unknown) care: (units (unknown) date) good care, unknown) initiated at week #, number of visits and pounds (unknown) (no (unknown) (unknown) Prior (units (unkno wn) date) (ies) unknown) (unknown) (no (unknown) (unknown) Protein/Creatini (units (unknown) date) n Ratio 0.36 unknown) (unknown) (no (unknown) (unknown) Protein/Creatini (units (unknown) date) n Ratio unknown) (unknown) (no (unknown) (unknown) Provider: (units (unkn own) date) Rabia Gooden MD unknown) (unknown) (no (unknown) (unknown) Psoriasis (units (unkn own) date) unknown) (unknown) (no (unknown) (unknown) RBC 2.92 L (units (unk nown) date) unknown) (unknown) (no (unknown) (unknown) RBC (units (unkno wn) date) unknown) (unknown) (no (unknown) (unknown) RDW 15.0 H (units (unk nown) date) unknown) (unknown) (no (unknown) (unknown) RDW (units (unkno wn) date) unknown) (unknown) (no (unknown) (unknown) Result Diagrams: (units (unknown) date) unknown) (unknown) (no (unknown) (unknown) Rubella Antibody (units (unknown) date) 7.3 IU/mL (>15) L unknown) 03/16/22 12:38 (unknown) (no (unknown) (unknown) SARS-CoV-2 (PCR) (units (unknown) date) Negative unknown) (unknown) (no (unknown) (unknown) SARS-CoV-2 (PCR) (units (unknown) date) unknown) (unknown) (no (unknown) (unknown) Signed By: (units (unk nown) date) unknown) (unknown) (no (unknown) (unknown) Smoking Status: (units (unknown) date) Never smoker unknown) (unknown) (no (unknown) (unknown) Social History (units (unknown) date) (Reviewed unknown) 07/30/22 @ 11:31 by Karina Gaytan DO) (unknown) (no (unknown) (unknown) Sodium 137 (units (unk nown) date) unknown) (unknown) (no (unknown) (unknown) Sodium (units (unkno wn) date) unknown) (unknown) (no (unknown) (unknown) Status post (units (un known) date) appendectomy unknown) (-1993) (unknown) (no (unknown) (unknown) Status post (units (un known) date) delivery unknown) (01/06/11) (unknown) (no (unknown) (unknown) Status post (units (un known) date) delivery unknown) (unknown) (no (unknown) (unknown) Sulfa (units (unkno wn) date) (Sulfonamide unknown) Allergy Mild RASH Verified 07/15/22 09:55 (unknown) (no (unknown) (unknown) Surgical History (units (unknown) date) (Reviewed unknown) 07/30/22 @ 11:31 by Karina Gaytan DO) (unknown) (no (unknown) (unknown) Time Patient (units (u nknown) date) Seen: 18:02 unknown) (unknown) (no (unknown) (unknown) Total Bilirubin (units (unknown) date) 0.4 unknown) (unknown) (no (unknown) (unknown) Total Bilirubin (units (unknown) date) unknown) (unknown) (no (unknown) (unknown) Total Protein (units ( unknown) date) 6.9 unknown) (unknown) (no (unknown) (unknown) Total Protein (units ( unknown) date) unknown) (unknown) (no (unknown) (unknown) Type(s) of (units (unk nown) date) exercise: none unknown) (unknown) (no (unknown) (unknown) U Random Total (units (unknown) date) Protein 18 H unknown) (unknown) (no (unknown) (unknown) U Random Total (units (unknown) date) Protein unknown) (unknown) (no (unknown) (unknown) Unknown (units (unkno wn) date) unknown) (unknown) (no (unknown) (unknown) Uric Acid 6.2 (units ( unknown) date) unknown) (unknown) (no (unknown) (unknown) Uric Acid (units (unkn own) date) unknown) (unknown) (no (unknown) (unknown) Urine Creatinine (units (unknown) date) 48.8 unknown) (unknown) (no (unknown) (unknown) Urine Creatinine (units (unknown) date) unknown) (unknown) (no (unknown) (unknown) Variability: (units (u nknown) date) Moderate (11-25) unknown) (unknown) (no (unknown) (unknown) Varicella-Zoster (units (unknown) date) IgG Antibody 339 unknown) index (Immune >165) 03/16/22 (unknown) (no (unknown) (unknown) WBC 7.1 (units (unkno wn) date) unknown) (unknown) (no (unknown) (unknown) WBC (units (unkno wn) date) unknown) (unknown) (no (unknown) (unknown) WG (units (unkno wn) date) unknown) (unknown) (no (unknown) (unknown) [Embedded Image (units (unknown) date) Not Available] unknown) (unknown) (no (unknown) (unknown) alcohol intake: (units (unknown) date) former unknown) (unknown) (no (unknown) (unknown) amoxicillin (units (un known) date) Allergy Mild Rash unknown) Verified 07/15/22 09:55 (unknown) (no (unknown) (unknown) azithromycin (units (u nknown) date) Allergy Mild RASH unknown) AND Verified 07/15/22 09:55 (unknown) (no (unknown) (unknown) caffeine: Yes (units ( unknown) date) unknown) (unknown) (no (unknown) (unknown) carbon monox (units (u nknown) date) detector in home: unknown) Yes (unknown) (no (unknown) (unknown) chlorhexidine (units ( unknown) date) AdvReac unknown) Intermediate Blister Verified 07/15/22 09:55 (unknown) (no (unknown) (unknown) clobetasol 0.05 (units (unknown) date) % topical unknown) ointment 1 applic topical BID #45 grams 07/01/22 (unknown) (no (unknown) (unknown) current (units (unkno wn) date) occupational unknown) exposures/hazards : No (unknown) (no (unknown) (unknown) daily servings (units (unknown) date) fruits/ve-1 unknown) 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 in unknown) home: Yes (unknown) (no (unknown) (unknown) firearms in (units (un known) date) home: No unknown) (unknown) (no (unknown) (unknown) household (units (unkn own) date) members: unknown) significant other and children (unknown) (no (unknown) (unknown) housing: (units (unkno wn) date) apartment unknown) (unknown) (no (unknown) (unknown) hyperemesis 1st (units (unknown) date) trimester unknown) (unknown) (no (unknown) (unknown) labetalol 100 mg (units (unknown) date) tablet 400 mg PO unknown) BID #360 tabs 08/04/22 07/15/22 Rx (unknown) (no (unknown) (unknown) latex AdvReac (units ( unknown) date) Mild ITCHING unknown) Verified 07/15/22 09:55 (unknown) (no (unknown) (unknown) lives (units (unkno wn) date) independently: unknown) Yes (unknown) (no (unknown) (unknown) marital status: (units (unknown) date) unmarried,living unknown) together (unknown) (no (unknown) (unknown) nifedipine 30 mg (units (unknown) date) tablet,extended unknown) 30 mg PO DAILY #30 tabs 08/04/22 Rx (unknown) (no (unknown) (unknown) number of (units (unkn own) date) children: 2 unknown) (unknown) (no (unknown) (unknown) occupational (units (u nknown) date) status: employed unknown) (unknown) (no (unknown) (unknown) other Camron (units (un known) date) unknown) (unknown) (no (unknown) (unknown) other Jeaneth (units (un known) date) unknown) (unknown) (no (unknown) (unknown) pets and (units (unkno wn) date) animals: Yes (1 unknown) cat (pt is not managing litter box)) (unknown) (no (unknown) (unknown) prenat.vits,miguel, (units (unknown) date) [id number] 1 unknown) tab PO DAILY 01/27/22 07/15/22 History (unknown) (no (unknown) (unknown) release 24 hr (units ( unknown) date) unknown) (unknown) (no (unknown) (unknown) seatbelt use: (units ( unknown) date) always unknown) (unknown) (no (unknown) (unknown) second hand (units (un known) date) exposure: No unknown) (unknown) (no (unknown) (unknown) special fly (units ( unknown) date) needs: No unknown) (unknown) (no (unknown) (unknown) substance use (units ( unknown) date) type: marijuana unknown) (unknown) (no (unknown) (unknown) water heater (units (u nknown) date) temp set < 120 unknown) deg: Yes (Will check and adjust if needed) (unknown) (no (unknown) (unknown) weight gain (units (un known) date) unknown) (unknown) (no (unknown) (unknown) well-balanced (units ( unknown) date) diet: about half unknown) the time (unknown) (no (unknown) (unknown) working smoke (units ( unknown) date) detector in home: unknown) Yes Result panel 10 (unknown) (no (unknown) (unknown) (no value) (units (unk nown) date) unknown) (unknown) (no (unknown) (unknown) [id number] (units (unkno wn) date) unknown) (unknown) (no (unknown) (unknown) 12/10/14 39 8 lb (units (unknown) date) 3 oz Female unknown) live - full term (unknown) (no (unknown) (unknown) 01/06/11 41 1 9 (units (unknown) date) lb 1 oz Male unknown) live - full term (unknown) (no (unknown) (unknown) 07/15/22 Rx (units (un known) date) unknown) (unknown) (no (unknown) (unknown) 08/04/22 (units (unkno wn) date) 08/04/22 08/04/22 unknown) (unknown) (no (unknown) (unknown) 08/04/22 Unknown (units (unknown) date) unknown) (unknown) (no (unknown) (unknown) 08/04/22 (units (unkno wn) date) unknown) (unknown) (no (unknown) (unknown) 12:38 (units (unkno wn) date) unknown) (unknown) (no (unknown) (unknown) 13:55 17:38 (units (un known) date) Unknown unknown) (unknown) (no (unknown) (unknown) :38 (units (unkno wn) date) unknown) (unknown) (no (unknown) (unknown) ALT 25 (units (unkno wn) date) unknown) (unknown) (no (unknown) (unknown) ALT (units (unkno wn) date) unknown) (unknown) (no (unknown) (unknown) AST 31 (units (unkno wn) date) unknown) (unknown) (no (unknown) (unknown) AST (units (unkno wn) date) unknown) (unknown) (no (unknown) (unknown) Age/Sex: 32 / F (units (unknown) date) unknown) (unknown) (no (unknown) (unknown) Albumin 3.5 (units (un known) date) unknown) (unknown) (no (unknown) (unknown) Albumin (units (unkno wn) date) unknown) (unknown) (no (unknown) (unknown) Albumin/Globulin (units (unknown) date) Ratio 1.0 unknown) (unknown) (no (unknown) (unknown) Albumin/Globulin (units (unknown) date) Ratio unknown) (unknown) (no (unknown) (unknown) Alkaline (units (unkno wn) date) Phosphatase 100 unknown) (unknown) (no (unknown) (unknown) Alkaline (units (unkno wn) date) Phosphatase unknown) (unknown) (no (unknown) (unknown) Allergies (units (unkn own) date) unknown) (unknown) (no (unknown) (unknown) Allergy/AdvReac (units (unknown) date) Type Severity unknown) Reaction Status Date / Time (unknown) (no (unknown) (unknown) Antibiotics) (units (u nknown) date) unknown) (unknown) (no (unknown) (unknown) Antibody Screen (units (unknown) date) Negative 03/16/22 unknown) 12:38 (unknown) (no (unknown) (unknown) Assessment and (units (unknown) date) Plan narrative: unknown) (unknown) (no (unknown) (unknown) Assessment and (units (unknown) date) Plan unknown) (unknown) (no (unknown) (unknown) BUN 10 (units (unkno wn) date) unknown) (unknown) (no (unknown) (unknown) BUN (units (unkno wn) date) unknown) (unknown) (no (unknown) (unknown) BUN/Creatinine (units (unknown) date) Ratio 14.9 unknown) (unknown) (no (unknown) (unknown) BUN/Creatinine (units (unknown) date) Ratio unknown) (unknown) (no (unknown) (unknown) Baseline (units (unknown) date) heart rate: 130 unknown) (unknown) (no (unknown) (unknown) Baso # (Auto) 0 (units (unknown) date) unknown) (unknown) (no (unknown) (unknown) Baso # (Auto) (units ( unknown) date) unknown) (unknown) (no (unknown) (unknown) Baso % (Auto) (units ( unknown) date) 0.2 unknown) (unknown) (no (unknown) (unknown) Baso % (Auto) (units ( unknown) date) unknown) (unknown) (no (unknown) (unknown) Betamethasone (units ( unknown) date) administered at unknown) 16:13. 20mg IV Labetalol given at 17:26. 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 (unknown) (no (unknown) (unknown) Chloride 105 (units (u nknown) date) unknown) (unknown) (no (unknown) (unknown) Chloride (units (unkno wn) date) unknown) (unknown) (no (unknown) (unknown) Chronic cough (units ( unknown) date) (-2000) unknown) (unknown) (no (unknown) (unknown) Creatinine 0.67 (units (unknown) date) unknown) (unknown) (no (unknown) (unknown) Creatinine (units (unk nown) date) unknown) (unknown) (no (unknown) (unknown) Current Estimate (units (unknown) date) 09/16/22 LMP unknown) (Certain) 33w 6d (unknown) (no (unknown) (unknown) : 1990 (units (unknown) date) Acct:[id number] unknown) (unknown) (no (unknown) (unknown) Date Patient (units (u nknown) date) Seen: 08/04/22 unknown) (unknown) (no (unknown) (unknown) Date of Service: (units (unknown) date) 08/04/22 unknown) (unknown) (no (unknown) (unknown) Date of (units (unkno wn) date) admission: unknown) 08/04/22 (unknown) (no (unknown) (unknown) Date/Time (units (unkn own) date) unknown) (unknown) (no (unknown) (unknown) Dating criteria (units (unknown) date) OB: LMP confirmed unknown) by 1st trimester US (unknown) (no (unknown) (unknown) Del. Date (units (unkn own) date) GA/Weeks Labor unknown) Lgth Wt Sex Route Outcome Anesthesia Place (unknown) (no (unknown) (unknown) Delivery Date: (units (unknown) date) 12/10/14 Last unknown) Updated by: Bianca Arenas R.N. (unknown) (no (unknown) (unknown) Delivery Date: (units (unknown) date) 01/06/11 Last unknown) Updated by: Bianca Arenas R.N. (unknown) (no (unknown) (unknown) Delv (units (unkno wn) date) unknown) (unknown) (no (unknown) (unknown) Depression (units (unk nown) date) unknown) (unknown) (no (unknown) (unknown) CLAU Calculator (units (unknown) date) unknown) (unknown) (no (unknown) (unknown) Eos # (Auto) 100 (units (unknown) date) unknown) (unknown) (no (unknown) (unknown) Eos # (Auto) (units (u nknown) date) unknown) (unknown) (no (unknown) (unknown) Eos % (Auto) 1.2 (units (unknown) date) L unknown) (unknown) (no (unknown) (unknown) Eos % (Auto) (units (u nknown) date) unknown) (unknown) (no (unknown) (unknown) Estimated (units (unkn own) date) Delivery Date unknown) Method Current (unknown) (no (unknown) (unknown) Estimated GFR > (units (unknown) date) 60 unknown) (unknown) (no (unknown) (unknown) Estimated GFR (units ( unknown) date) unknown) (unknown) (no (unknown) (unknown) Estimated (units (unkn own) date) Gestational Age unknown) (weeks): 33w6d (unknown) (no (unknown) (unknown) Evaluation (units (unk nown) date) unknown) (unknown) (no (unknown) (unknown) Family History (units (unknown) date) (Reviewed unknown) 07/30/22 @ 11:31 by Karina Gaytan DO) (unknown) (no (unknown) (unknown) Monitor (units ( unknown) date) Decelerations: unknown) Absent (unknown) (no (unknown) (unknown) monitor (units ( unknown) date) accelerations: unknown) Present (unknown) (no (unknown) (unknown) Globulin 3.4 (units (u nknown) date) unknown) (unknown) (no (unknown) (unknown) Globulin (units (unkno wn) date) unknown) (unknown) (no (unknown) (unknown) Glucose 79 (units (unk nown) date) unknown) (unknown) (no (unknown) (unknown) Glucose (units (unkno wn) date) unknown) (unknown) (no (unknown) (unknown) Grandfather (units (un known) date) Hypertension unknown) (unknown) (no (unknown) (unknown) Grandmother Type (units (unknown) date) 2 diabetes unknown) mellitus (unknown) (no (unknown) (unknown) : 3 (units (unk nown) date) unknown) (unknown) (no (unknown) (unknown) Hct 27.1 L (units (unk nown) date) unknown) (unknown) (no (unknown) (unknown) Hct (units (unkno wn) date) unknown) (unknown) (no (unknown) (unknown) Hematocrit 27.1 (units (unknown) date) % (36-46) L unknown) 08/04/22 23:59 (unknown) (no (unknown) (unknown) Hemoglobin 9.6 (units (unknown) date) g/dL (12.0-16.0) unknown) L 08/04/22 23:59 (unknown) (no (unknown) (unknown) Hepatitis B (units (un known) date) Surface Antigen unknown) Negative s/c (NEGATIVE) 03/16/22 12 (unknown) (no (unknown) (unknown) Hepatitis C (units (un known) date) Antibody Negative unknown) s/c (NEGATIVE) 03/16/22 12:38 (unknown) (no (unknown) (unknown) Hgb 9.6 L (units (unkn own) date) unknown) (unknown) (no (unknown) (unknown) Hgb (units (unkno wn) date) unknown) (unknown) (no (unknown) (unknown) History of (units (unk nown) date) Present Condition unknown) (unknown) (no (unknown) (unknown) Home Medications (units (unknown) date) and Allergies unknown) (unknown) (no (unknown) (unknown) Home Medications (units (unknown) date) unknown) (unknown) (no (unknown) (unknown) Hypertension (units (u nknown) date) unknown) (unknown) (no (unknown) (unknown) IH 3 months (units (un known) date) unknown) (unknown) (no (unknown) (unknown) IH attempted (units (u nknown) date) unknown) (unknown) (no (unknown) (unknown) ITCHING (units (unkno wn) date) unknown) (unknown) (no (unknown) (unknown) [facility] (units (unknown) date) [address] unknown) [place] [address] (unknown) (no (unknown) (unknown) Laboratory (units (unk nown) date) Results - last 24 unknown) hr (unknown) (no (unknown) (unknown) Labs (units (unkno wn) date) unknown) (unknown) (no (unknown) (unknown) Labs: (units (unkno wn) date) unknown) (unknown) (no (unknown) (unknown) Last OB Lab (units (un known) date) Results: unknown) (unknown) (no (unknown) (unknown) Lymph # (Auto) (units (unknown) date) 900 L unknown) (unknown) (no (unknown) (unknown) Lymph # (Auto) (units (unknown) date) unknown) (unknown) (no (unknown) (unknown) Lymph % (Auto) (units (unknown) date) 12.8 L unknown) (unknown) (no (unknown) (unknown) Lymph % (Auto) (units (unknown) date) unknown) (unknown) (no (unknown) (unknown) MCH 32.8 (units (unkno wn) date) unknown) (unknown) (no (unknown) (unknown) MCH (units (unkno wn) date) unknown) (unknown) (no (unknown) (unknown) MCHC 35.3 (units (unkn own) date) unknown) (unknown) (no (unknown) (unknown) MCHC (units (unkno wn) date) unknown) (unknown) (no (unknown) (unknown) MCV 92.7 (units (unkno wn) date) unknown) (unknown) (no (unknown) (unknown) MCV (units (unkno wn) date) unknown) (unknown) (no (unknown) (unknown) Medical History (units (unknown) date) (Reviewed unknown) 07/30/22 @ 11:31 by Karina Gaytan DO) (unknown) (no (unknown) (unknown) Medical (units (unkno wn) date) complications OB: unknown) cardiovascular (chronic hypertension) (unknown) (no (unknown) (unknown) Medication (units (unk nown) date) Instructions unknown) Recorded Confirmed Type (unknown) (no (unknown) (unknown) Meds (units (unkno wn) date) unknown) (unknown) (no (unknown) (unknown) [place] # (Auto) (units ( unknown) date) 600 unknown) (unknown) (no (unknown) (unknown) [place] # (Auto) (units ( unknown) date) unknown) (unknown) (no (unknown) (unknown) [place] % (Auto) (units ( unknown) date) 8.6 unknown) (unknown) (no (unknown) (unknown) [place] % (Auto) (units ( unknown) date) unknown) (unknown) (no (unknown) (unknown) Mother Age: 51 (units (unknown) date) Stroke unknown) (unknown) (no (unknown) (unknown) Narrative: (units (unk nown) date) unknown) (unknown) (no (unknown) (unknown) Neut # (Auto) (units ( unknown) date) 5500 unknown) (unknown) (no (unknown) (unknown) Neut # (Auto) (units ( unknown) date) unknown) (unknown) (no (unknown) (unknown) Neut % (Auto) (units ( unknown) date) 77.2 H unknown) (unknown) (no (unknown) (unknown) Neut % (Auto) (units ( unknown) date) unknown) (unknown) (no (unknown) (unknown) OB HPI (units (unkno wn) date) unknown) (unknown) (no (unknown) (unknown) [employer] History + (units (unknown) date) Physical unknown) (unknown) (no (unknown) (unknown) Objective (units (unkn own) date) unknown) (unknown) (no (unknown) (unknown) Obstetrical (units (un known) date) complications: unknown) preeclampsia (unknown) (no (unknown) (unknown) PFSH (units (unkno wn) date) unknown) (unknown) (no (unknown) (unknown) PUPP (pruritic (units (unknown) date) urticarial unknown) papules and plaques of ) (unknown) (no (unknown) (unknown) PUPPPS rash (units (un known) date) unknown) (unknown) (no (unknown) (unknown) Para: 2 (units (unkno wn) date) unknown) (unknown) (no (unknown) (unknown) Past Pregnancies (units (unknown) date) unknown) (unknown) (no (unknown) (unknown) Patient: (units (unkno wn) date) Ga Hagan L unknown) MR#: [id number] (unknown) (no (unknown) (unknown) Plantar (units (unkno wn) date) fasciitis (-2016) unknown) (unknown) (no (unknown) (unknown) Plt Count 177 (units ( unknown) date) unknown) (unknown) (no (unknown) (unknown) Plt Count (units (unkn own) date) unknown) (unknown) (no (unknown) (unknown) Potassium 3.5 (units ( unknown) date) unknown) (unknown) (no (unknown) (unknown) Potassium (units (unkn own) date) unknown) (unknown) (no (unknown) (unknown) Preadmission (units (u nknown) date) Labs unknown) (unknown) (no (unknown) (unknown) care: (units (unknown) date) good care, unknown) initiated at week # (8), number of visits (8) and (unknown) (no (unknown) (unknown) Prior (units (unkno wn) date) (ies) unknown) (unknown) (no (unknown) (unknown) Protein/Creatini (units (unknown) date) n Ratio 0.36 unknown) (unknown) (no (unknown) (unknown) Protein/Creatini (units (unknown) date) n Ratio unknown) (unknown) (no (unknown) (unknown) Provider: (units (unkn own) date) Rabia Gooden MD unknown) (unknown) (no (unknown) (unknown) Psoriasis (units (unkn own) date) unknown) (unknown) (no (unknown) (unknown) Pt is a 32yo (units (u nknown) date) at 33w6d unknown) (unknown) (no (unknown) (unknown) RBC 2.92 L (units (unk nown) date) unknown) (unknown) (no (unknown) (unknown) RBC (units (unkno wn) date) unknown) (unknown) (no (unknown) (unknown) RDW 15.0 H (units (unk nown) date) unknown) (unknown) (no (unknown) (unknown) RDW (units (unkno wn) date) unknown) (unknown) (no (unknown) (unknown) Result Diagrams: (units (unknown) date) unknown) (unknown) (no (unknown) (unknown) Rubella Antibody (units (unknown) date) 7.3 IU/mL (>15) L unknown) 03/16/22 12:38 (unknown) (no (unknown) (unknown) SARS-CoV-2 (PCR) (units (unknown) date) Negative unknown) (unknown) (no (unknown) (unknown) SARS-CoV-2 (PCR) (units (unknown) date) unknown) (unknown) (no (unknown) (unknown) Signed By: (units (unk nown) date) unknown) (unknown) (no (unknown) (unknown) Smoking Status: (units (unknown) date) Never smoker unknown) (unknown) (no (unknown) (unknown) Social History (units (unknown) date) (Reviewed unknown) 07/30/22 @ 11:31 by Karina Gaytan DO) (unknown) (no (unknown) (unknown) Sodium 137 (units (unk nown) date) unknown) (unknown) (no (unknown) (unknown) Sodium (units (unkno wn) date) unknown) (unknown) (no (unknown) (unknown) Status post (units (un known) date) appendectomy unknown) () (unknown) (no (unknown) (unknown) Status post (units (un known) date) delivery unknown) (01/06/11) (unknown) (no (unknown) (unknown) Status post (units (un known) date) delivery unknown) (unknown) (no (unknown) (unknown) Sulfa (units (unkno wn) date) (Sulfonamide unknown) Allergy Mild RASH Verified 07/15/22 09:55 (unknown) (no (unknown) (unknown) Surgical History (units (unknown) date) (Reviewed unknown) 07/30/22 @ 11:31 by Karina Gaytan DO) (unknown) (no (unknown) (unknown) Time Patient (units (u nknown) date) Seen: 18:02 unknown) (unknown) (no (unknown) (unknown) Total Bilirubin (units (unknown) date) 0.4 unknown) (unknown) (no (unknown) (unknown) Total Bilirubin (units (unknown) date) unknown) (unknown) (no (unknown) (unknown) Total Protein (units ( unknown) date) 6.9 unknown) (unknown) (no (unknown) (unknown) Total Protein (units ( unknown) date) unknown) (unknown) (no (unknown) (unknown) Type(s) of (units (unk nown) date) exercise: none unknown) (unknown) (no (unknown) (unknown) U Random Total (units (unknown) date) Protein 18 H unknown) (unknown) (no (unknown) (unknown) U Random Total (units (unknown) date) Protein unknown) (unknown) (no (unknown) (unknown) Ultrasounds: (units (u nknown) date) normal 1st unknown) trimester US and normal mid trimester US (unknown) (no (unknown) (unknown) Unknown (units (unkno wn) date) unknown) (unknown) (no (unknown) (unknown) Uric Acid 6.2 (units ( unknown) date) unknown) (unknown) (no (unknown) (unknown) Uric Acid (units (unkn own) date) unknown) (unknown) (no (unknown) (unknown) Urine Creatinine (units (unknown) date) 48.8 unknown) (unknown) (no (unknown) (unknown) Urine Creatinine (units (unknown) date) unknown) (unknown) (no (unknown) (unknown) Variability: (units (u nknown) date) Moderate (11-25) unknown) (unknown) (no (unknown) (unknown) Varicella-Zoster (units (unknown) date) IgG Antibody 339 unknown) index (Immune >165) 03/16/22 (unknown) (no (unknown) (unknown) WBC 7.1 (units (unkno wn) date) unknown) (unknown) (no (unknown) (unknown) WBC (units (unkno wn) date) unknown) (unknown) (no (unknown) (unknown) WG (units (unkno wn) date) unknown) (unknown) (no (unknown) (unknown) [Embedded Image (units (unknown) date) Not Available] unknown) (unknown) (no (unknown) (unknown) alcohol intake: (units (unknown) date) former unknown) (unknown) (no (unknown) (unknown) amoxicillin (units (un known) date) Allergy Mild Rash unknown) Verified 07/15/22 09:55 (unknown) (no (unknown) (unknown) azithromycin (units (u nknown) date) Allergy Mild RASH unknown) AND Verified 07/15/22 09:55 (unknown) (no (unknown) (unknown) caffeine: Yes (units ( unknown) date) unknown) (unknown) (no (unknown) (unknown) carbon monox (units (u nknown) date) detector in home: unknown) Yes (unknown) (no (unknown) (unknown) chlorhexidine (units ( unknown) date) AdvReac unknown) Intermediate Blister Verified 07/15/22 09:55 (unknown) (no (unknown) (unknown) clobetasol 0.05 (units (unknown) date) % topical unknown) ointment 1 applic topical BID #45 grams 07/01/22 (unknown) (no (unknown) (unknown) current (units (unkno wn) date) occupational unknown) exposures/hazards : No (unknown) (no (unknown) (unknown) daily servings (units (unknown) date) fruits/ve-1 unknown) 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 in unknown) home: Yes (unknown) (no (unknown) (unknown) firearms in (units (un known) date) home: No unknown) (unknown) (no (unknown) (unknown) household (units (unkn own) date) members: unknown) significant other and children (unknown) (no (unknown) (unknown) housing: (units (unkno wn) date) apartment unknown) (unknown) (no (unknown) (unknown) hyperemesis 1st (units (unknown) date) trimester unknown) (unknown) (no (unknown) (unknown) labetalol 100 mg (units (unknown) date) tablet 400 mg PO unknown) BID #360 tabs 08/04/22 07/15/22 Rx (unknown) (no (unknown) (unknown) latex AdvReac (units ( unknown) date) Mild ITCHING unknown) Verified 07/15/22 09:55 (unknown) (no (unknown) (unknown) lives (units (unkno wn) date) independently: unknown) Yes (unknown) (no (unknown) (unknown) marital status: (units (unknown) date) unmarried,living unknown) together (unknown) (no (unknown) (unknown) nifedipine 30 mg (units (unknown) date) tablet,extended unknown) 30 mg PO DAILY #30 tabs 08/04/22 Rx (unknown) (no (unknown) (unknown) number of (units (unkn own) date) children: 2 unknown) (unknown) (no (unknown) (unknown) occupational (units (u nknown) date) status: employed unknown) (unknown) (no (unknown) (unknown) other Camron (units (un known) date) unknown) (unknown) (no (unknown) (unknown) other Jeaneth (units (un known) date) unknown) (unknown) (no (unknown) (unknown) pets and (units (unkno wn) date) animals: Yes (1 unknown) cat (pt is not managing litter box)) (unknown) (no (unknown) (unknown) pounds weight (units ( unknown) date) gain (10) unknown) (unknown) (no (unknown) (unknown) prenat.vits,miguel, (units (unknown) date) [id number] 1 unknown) tab PO DAILY 01/27/22 07/15/22 History (unknown) (no (unknown) (unknown) release 24 hr (units ( unknown) date) unknown) (unknown) (no (unknown) (unknown) seatbelt use: (units ( unknown) date) always unknown) (unknown) (no (unknown) (unknown) second hand (units (un known) date) exposure: No unknown) (unknown) (no (unknown) (unknown) special fly (units ( unknown) date) needs: No unknown) (unknown) (no (unknown) (unknown) substance use (units ( unknown) date) type: marijuana unknown) (unknown) (no (unknown) (unknown) water heater (units (u nknown) date) temp set < 120 unknown) deg: Yes (Will check and adjust if needed) (unknown) (no (unknown) (unknown) well-balanced (units ( unknown) date) diet: about half unknown) the time (unknown) (no (unknown) (unknown) working smoke (units ( unknown) date) detector in home: unknown) Yes Result panel 11 (unknown) (no (unknown) (unknown) (no value) (units (unk nown) date) unknown) (unknown) (no (unknown) (unknown) -: Urine: (units (unkn own) date) positive (E coli) unknown) (unknown) (no (unknown) (unknown) [id number] (units (unkno wn) date) unknown) (unknown) (no (unknown) (unknown) 12/10/14 39 8 lb (units (unknown) date) 3 oz Female unknown) live - full term (unknown) (no (unknown) (unknown) 01/06/11 41 1 9 (units (unknown) date) lb 1 oz Male unknown) live - full term (unknown) (no (unknown) (unknown) 07/15/22 Rx (units (un known) date) unknown) (unknown) (no (unknown) (unknown) 08/04/22 (units (unkno wn) date) 08/04/22 08/04/22 unknown) (unknown) (no (unknown) (unknown) 08/04/22 Unknown (units (unknown) date) unknown) (unknown) (no (unknown) (unknown) 08/04/22 (units (unkno wn) date) unknown) (unknown) (no (unknown) (unknown) 12:38 (units (unkno wn) date) unknown) (unknown) (no (unknown) (unknown) 13:55 17:38 (units (un known) date) Unknown unknown) (unknown) (no (unknown) (unknown) :38 (units (unkno wn) date) unknown) (unknown) (no (unknown) (unknown) ALT 25 (units (unkno wn) date) unknown) (unknown) (no (unknown) (unknown) ALT (units (unkno wn) date) unknown) (unknown) (no (unknown) (unknown) AST 31 (units (unkno wn) date) unknown) (unknown) (no (unknown) (unknown) AST (units (unkno wn) date) unknown) (unknown) (no (unknown) (unknown) Abd: soft, (units (unk nown) date) nontender, gravid unknown) (unknown) (no (unknown) (unknown) Age/Sex: 32 / F (units (unknown) date) unknown) (unknown) (no (unknown) (unknown) Albumin 3.5 (units (un known) date) unknown) (unknown) (no (unknown) (unknown) Albumin (units (unkno wn) date) unknown) (unknown) (no (unknown) (unknown) Albumin/Globulin (units (unknown) date) Ratio 1.0 unknown) (unknown) (no (unknown) (unknown) Albumin/Globulin (units (unknown) date) Ratio unknown) (unknown) (no (unknown) (unknown) Alkaline (units (unkno wn) date) Phosphatase 100 unknown) (unknown) (no (unknown) (unknown) Alkaline (units (unkno wn) date) Phosphatase unknown) (unknown) (no (unknown) (unknown) Allergies (units (unkn own) date) unknown) (unknown) (no (unknown) (unknown) Allergy/AdvReac (units (unknown) date) Type Severity unknown) Reaction Status Date / Time (unknown) (no (unknown) (unknown) Antibiotics) (units (u nknown) date) unknown) (unknown) (no (unknown) (unknown) Antibody Screen (units (unknown) date) Negative 03/16/22 unknown) 12:38 (unknown) (no (unknown) (unknown) Assessment and (units (unknown) date) Plan narrative: unknown) (unknown) (no (unknown) (unknown) Assessment and (units (unknown) date) Plan unknown) (unknown) (no (unknown) (unknown) BUN 10 (units (unkno wn) date) unknown) (unknown) (no (unknown) (unknown) BUN (units (unkno wn) date) unknown) (unknown) (no (unknown) (unknown) BUN/Creatinine (units (unknown) date) Ratio 14.9 unknown) (unknown) (no (unknown) (unknown) BUN/Creatinine (units (unknown) date) Ratio unknown) (unknown) (no (unknown) (unknown) Baseline (units (unknown) date) heart rate: 130 unknown) (unknown) (no (unknown) (unknown) Baso # (Auto) 0 (units (unknown) date) unknown) (unknown) (no (unknown) (unknown) Baso # (Auto) (units ( unknown) date) unknown) (unknown) (no (unknown) (unknown) Baso % (Auto) (units ( unknown) date) 0.2 unknown) (unknown) (no (unknown) (unknown) Baso % (Auto) (units ( unknown) date) unknown) (unknown) (no (unknown) (unknown) Betamethasone (units ( unknown) date) administered at unknown) 16:13. 20mg IV Labetalol given at 17:26. (unknown) (no (unknown) (unknown) Blood Type O (units (u nknown) date) Positive 03/16/22 unknown) 12:38 (unknown) (no (unknown) (unknown) Breastfeed Preg (units (unknown) date) Comp Name unknown) (unknown) (no (unknown) (unknown) CV: RRR, no (units (un known) date) murmurs unknown) (unknown) (no (unknown) (unknown) Calcium 10.2 (units (u nknown) date) unknown) (unknown) (no (unknown) (unknown) Calcium (units (unkno wn) date) unknown) (unknown) (no (unknown) (unknown) Carbon Dioxide (units (unknown) date) 22 unknown) (unknown) (no (unknown) (unknown) Carbon Dioxide (units (unknown) date) unknown) (unknown) (no (unknown) (unknown) Chief complaint: (units (unknown) date) 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 (unknown) (no (unknown) (unknown) Chloride 105 (units (u nknown) date) unknown) (unknown) (no (unknown) (unknown) Chloride (units (unkno wn) date) unknown) (unknown) (no (unknown) (unknown) Chronic cough (units ( unknown) date) (-2000) unknown) (unknown) (no (unknown) (unknown) Creatinine 0.67 (units (unknown) date) unknown) (unknown) (no (unknown) (unknown) Creatinine (units (unk nown) date) unknown) (unknown) (no (unknown) (unknown) Current Estimate (units (unknown) date) 09/16/22 LMP unknown) (Certain) 33w 6d (unknown) (no (unknown) (unknown) : 1990 (units (unknown) date) Acct:[id number] unknown) (unknown) (no (unknown) (unknown) Date Patient (units (u nknown) date) Seen: 08/04/22 unknown) (unknown) (no (unknown) (unknown) Date of Service: (units (unknown) date) 08/04/22 unknown) (unknown) (no (unknown) (unknown) Date of (units (unkno wn) date) admission: unknown) 08/04/22 (unknown) (no (unknown) (unknown) Date/Time (units (unkn own) date) unknown) (unknown) (no (unknown) (unknown) Dating criteria (units (unknown) date) OB: LMP confirmed unknown) by 1st trimester US (unknown) (no (unknown) (unknown) Del. Date (units (unkn own) date) GA/Weeks Labor unknown) Lgth Wt Sex Route Outcome Anesthesia Place (unknown) (no (unknown) (unknown) Delivery Date: (units (unknown) date) 12/10/14 Last unknown) Updated by: Bianca Arenas R.N. (unknown) (no (unknown) (unknown) Delivery Date: (units (unknown) date) 01/06/11 Last unknown) Updated by: Bianca Arenas R.N. (unknown) (no (unknown) (unknown) Delv (units (unkno wn) date) unknown) (unknown) (no (unknown) (unknown) Depression (units (unk nown) date) unknown) (unknown) (no (unknown) (unknown) CLAU Calculator (units (unknown) date) unknown) (unknown) (no (unknown) (unknown) Eos # (Auto) 100 (units (unknown) date) unknown) (unknown) (no (unknown) (unknown) Eos # (Auto) (units (u nknown) date) unknown) (unknown) (no (unknown) (unknown) Eos % (Auto) 1.2 (units (unknown) date) L unknown) (unknown) (no (unknown) (unknown) Eos % (Auto) (units (u nknown) date) unknown) (unknown) (no (unknown) (unknown) Estimated (units (unkn own) date) Delivery Date unknown) Method Current (unknown) (no (unknown) (unknown) Estimated GFR > (units (unknown) date) 60 unknown) (unknown) (no (unknown) (unknown) Estimated GFR (units ( unknown) date) unknown) (unknown) (no (unknown) (unknown) Estimated (units (unkn own) date) Gestational Age unknown) (weeks): 33w6d (unknown) (no (unknown) (unknown) Evaluation (units (unk nown) date) unknown) (unknown) (no (unknown) (unknown) Exam Narrative: (units (unknown) date) unknown) (unknown) (no (unknown) (unknown) Ext: no edema (units ( unknown) date) unknown) (unknown) (no (unknown) (unknown) External Labs (units ( unknown) date) unknown) (unknown) (no (unknown) (unknown) Family History (units (unknown) date) (Reviewed unknown) 07/30/22 @ 11:31 by Karina Gaytan DO) (unknown) (no (unknown) (unknown) Monitor (units ( unknown) date) Decelerations: unknown) Absent (unknown) (no (unknown) (unknown) monitor (units ( unknown) date) accelerations: unknown) Present (unknown) (no (unknown) (unknown) Gen: NAD, (units (unkn own) date) sitting unknown) comfortably in bed, appears well (unknown) (no (unknown) (unknown) Genetic Screens: (units (unknown) date) Quad screen: unknown) Normal (unknown) (no (unknown) (unknown) Globulin 3.4 (units (u nknown) date) unknown) (unknown) (no (unknown) (unknown) Globulin (units (unkno wn) date) unknown) (unknown) (no (unknown) (unknown) Glucose 79 (units (unk nown) date) unknown) (unknown) (no (unknown) (unknown) Glucose (units (unkno wn) date) unknown) (unknown) (no (unknown) (unknown) Grandfather (units (un known) date) Hypertension unknown) (unknown) (no (unknown) (unknown) Grandmother Type (units (unknown) date) 2 diabetes unknown) mellitus (unknown) (no (unknown) (unknown) : 3 (units (unk nown) date) unknown) (unknown) (no (unknown) (unknown) Hct 27.1 L (units (unk nown) date) unknown) (unknown) (no (unknown) (unknown) Hct (units (unkno wn) date) unknown) (unknown) (no (unknown) (unknown) Hematocrit 27.1 (units (unknown) date) % (36-46) L unknown) 08/04/22 23:59 (unknown) (no (unknown) (unknown) Hemoglobin 9.6 (units (unknown) date) g/dL (12.0-16.0) unknown) L 08/04/22 23:59 (unknown) (no (unknown) (unknown) Hepatitis B (units (un known) date) Surface Antigen unknown) Negative s/c (NEGATIVE) 03/16/22 12 (unknown) (no (unknown) (unknown) Hepatitis C (units (un known) date) Antibody Negative unknown) s/c (NEGATIVE) 03/16/22 12:38 (unknown) (no (unknown) (unknown) Hgb 9.6 L (units (unkn own) date) unknown) (unknown) (no (unknown) (unknown) Hgb (units (unkno wn) date) unknown) (unknown) (no (unknown) (unknown) History of (units (unk nown) date) Present Condition unknown) (unknown) (no (unknown) (unknown) Home Medications (units (unknown) date) and Allergies unknown) (unknown) (no (unknown) (unknown) Home Medications (units (unknown) date) unknown) (unknown) (no (unknown) (unknown) Hypertension (units (u nknown) date) unknown) (unknown) (no (unknown) (unknown) IH 3 months (units (un known) date) unknown) (unknown) (no (unknown) (unknown) IH attempted (units (u nknown) date) unknown) (unknown) (no (unknown) (unknown) ITCHING (units (unkno wn) date) unknown) (unknown) (no (unknown) (unknown) [facility] (units (unknown) date) [address] [place] [address] Street unknown) [place] [address] (unknown) (no (unknown) (unknown) Laboratory (units (unk nown) date) Results - last 24 unknown) hr (unknown) (no (unknown) (unknown) Labs (units (unkno wn) date) unknown) (unknown) (no (unknown) (unknown) Labs: (units (unkno wn) date) unknown) (unknown) (no (unknown) (unknown) Last OB Lab (units (un known) date) Results: unknown) (unknown) (no (unknown) (unknown) Lymph # (Auto) (units (unknown) date) 900 L unknown) (unknown) (no (unknown) (unknown) Lymph # (Auto) (units (unknown) date) unknown) (unknown) (no (unknown) (unknown) Lymph % (Auto) (units (unknown) date) 12.8 L unknown) (unknown) (no (unknown) (unknown) Lymph % (Auto) (units (unknown) date) unknown) (unknown) (no (unknown) (unknown) MCH 32.8 (units (unkno wn) date) unknown) (unknown) (no (unknown) (unknown) MCH (units (unkno wn) date) unknown) (unknown) (no (unknown) (unknown) MCHC 35.3 (units (unkn own) date) unknown) (unknown) (no (unknown) (unknown) MCHC (units (unkno wn) date) unknown) (unknown) (no (unknown) (unknown) MCV 92.7 (units (unkno wn) date) unknown) (unknown) (no (unknown) (unknown) MCV (units (unkno wn) date) unknown) (unknown) (no (unknown) (unknown) Medical History (units (unknown) date) (Reviewed unknown) 07/30/22 @ 11:31 by Karina Gaytan DO) (unknown) (no (unknown) (unknown) Medical (units (unkno wn) date) complications OB: unknown) cardiovascular (chronic hypertension) (unknown) (no (unknown) (unknown) Medication (units (unk nown) date) Instructions unknown) Recorded Confirmed Type (unknown) (no (unknown) (unknown) Meds (units (unkno wn) date) unknown) (unknown) (no (unknown) (unknown) [place] # (Auto) (units ( unknown) date) 600 unknown) (unknown) (no (unknown) (unknown) [place] # (Auto) (units ( unknown) date) unknown) (unknown) (no (unknown) (unknown) [place] % (Auto) (units ( unknown) date) 8.6 unknown) (unknown) (no (unknown) (unknown) [place] % (Auto) (units ( unknown) date) unknown) (unknown) (no (unknown) (unknown) Mother Age: 51 (units (unknown) date) Stroke unknown) (unknown) (no (unknown) (unknown) Narrative (units (unkn own) date) unknown) (unknown) (no (unknown) (unknown) Narrative: (units (unk nown) date) unknown) (unknown) (no (unknown) (unknown) Neuro: no (units (unkn own) date) clonus, reflexes unknown) (unknown) (no (unknown) (unknown) Neut # (Auto) (units ( unknown) date) 5500 unknown) (unknown) (no (unknown) (unknown) Neut # (Auto) (units ( unknown) date) unknown) (unknown) (no (unknown) (unknown) Neut % (Auto) (units ( unknown) date) 77.2 H unknown) (unknown) (no (unknown) (unknown) Neut % (Auto) (units ( unknown) date) unknown) (unknown) (no (unknown) (unknown) OB Exam (units (unkno wn) date) unknown) (unknown) (no (unknown) (unknown) OB HPI (units (unkno wn) date) unknown) (unknown) (no (unknown) (unknown) [employer] History + (units (unknown) date) Physical unknown) (unknown) (no (unknown) (unknown) Objective (units (unkn own) date) unknown) (unknown) (no (unknown) (unknown) Obstetrical (units (un known) date) complications: unknown) gestational diabetes and preeclampsia (unknown) (no (unknown) (unknown) PFSH (units (unkno wn) date) unknown) (unknown) (no (unknown) (unknown) PUPP (pruritic (units (unknown) date) urticarial unknown) papules and plaques of ) (unknown) (no (unknown) (unknown) PUPPPS rash (units (un known) date) unknown) (unknown) (no (unknown) (unknown) Para: 2 (units (unkno wn) date) unknown) (unknown) (no (unknown) (unknown) Past Pregnancies (units (unknown) date) unknown) (unknown) (no (unknown) (unknown) Patient: (units (unkno wn) date) Ga [place] L unknown) MR#: [id number] (unknown) (no (unknown) (unknown) Plantar (units (unkno wn) date) fasciitis (-2016) unknown) (unknown) (no (unknown) (unknown) Plt Count 177 (units ( unknown) date) unknown) (unknown) (no (unknown) (unknown) Plt Count (units (unkn own) date) unknown) (unknown) (no (unknown) (unknown) Potassium 3.5 (units ( unknown) date) unknown) (unknown) (no (unknown) (unknown) Potassium (units (unkn own) date) unknown) (unknown) (no (unknown) (unknown) Preadmission (units (u nknown) date) Labs unknown) (unknown) (no (unknown) (unknown) care: (units (unknown) date) good care, unknown) initiated at week # (8), number of visits (8) and (unknown) (no (unknown) (unknown) Prior (units (unkno wn) date) (ies) unknown) (unknown) (no (unknown) (unknown) Protein/Creatini (units (unknown) date) n Ratio 0.36 unknown) (unknown) (no (unknown) (unknown) Protein/Creatini (units (unknown) date) n Ratio unknown) (unknown) (no (unknown) (unknown) Provider: (units (unkn own) date) Rabia Gooden MD unknown) (unknown) (no (unknown) (unknown) Psoriasis (units (unkn own) date) unknown) (unknown) (no (unknown) (unknown) Pt is a 32yo (units (u nknown) date) at 33w6d unknown) with complicated by GDM (recently (unknown) (no (unknown) (unknown) RBC 2.92 L (units (unk nown) date) unknown) (unknown) (no (unknown) (unknown) RBC (units (unkno wn) date) unknown) (unknown) (no (unknown) (unknown) RDW 15.0 H (units (unk nown) date) unknown) (unknown) (no (unknown) (unknown) RDW (units (unkno wn) date) unknown) (unknown) (no (unknown) (unknown) Resp: clear to (units (unknown) date) auscultation unknown) bilaterally (unknown) (no (unknown) (unknown) Result Diagrams: (units (unknown) date) unknown) (unknown) (no (unknown) (unknown) Rubella Antibody (units (unknown) date) 7.3 IU/mL (>15) L unknown) 03/16/22 12:38 (unknown) (no (unknown) (unknown) SARS-CoV-2 (PCR) (units (unknown) date) Negative unknown) (unknown) (no (unknown) (unknown) SARS-CoV-2 (PCR) (units (unknown) date) unknown) (unknown) (no (unknown) (unknown) Signed By: (units (unk nown) date) unknown) (unknown) (no (unknown) (unknown) Smoking Status: (units (unknown) date) Never smoker unknown) (unknown) (no (unknown) (unknown) Social History (units (unknown) date) (Reviewed unknown) 07/30/22 @ 11:31 by Karina Gaytan DO) (unknown) (no (unknown) (unknown) Sodium 137 (units (unk nown) date) unknown) (unknown) (no (unknown) (unknown) Sodium (units (unkno wn) date) unknown) (unknown) (no (unknown) (unknown) Status post (units (un known) date) appendectomy unknown) (-1993) (unknown) (no (unknown) (unknown) Status post (units (un known) date) delivery unknown) (01/06/11) (unknown) (no (unknown) (unknown) Status post (units (un known) date) delivery unknown) (unknown) (no (unknown) (unknown) Sulfa (units (unkno wn) date) (Sulfonamide unknown) Allergy Mild RASH Verified 07/15/22 09:55 (unknown) (no (unknown) (unknown) Surgical History (units (unknown) date) (Reviewed unknown) 07/30/22 @ 11:31 by Karina Gaytan DO) (unknown) (no (unknown) (unknown) Time Patient (units (u nknown) date) Seen: 18:02 unknown) (unknown) (no (unknown) (unknown) Total Bilirubin (units (unknown) date) 0.4 unknown) (unknown) (no (unknown) (unknown) Total Bilirubin (units (unknown) date) unknown) (unknown) (no (unknown) (unknown) Total Protein (units ( unknown) date) 6.9 unknown) (unknown) (no (unknown) (unknown) Total Protein (units ( unknown) date) unknown) (unknown) (no (unknown) (unknown) Type(s) of (units (unk nown) date) exercise: none unknown) (unknown) (no (unknown) (unknown) U Random Total (units (unknown) date) Protein 18 H unknown) (unknown) (no (unknown) (unknown) U Random Total (units (unknown) date) Protein unknown) (unknown) (no (unknown) (unknown) Ultrasounds: (units (u nknown) date) normal 1st unknown) trimester US and normal mid trimester US (unknown) (no (unknown) (unknown) Unknown (units (unkno wn) date) unknown) (unknown) (no (unknown) (unknown) Uric Acid 6.2 (units ( unknown) date) unknown) (unknown) (no (unknown) (unknown) Uric Acid (units (unkn own) date) unknown) (unknown) (no (unknown) (unknown) Urine Creatinine (units (unknown) date) 48.8 unknown) (unknown) (no (unknown) (unknown) Urine Creatinine (units (unknown) date) unknown) (unknown) (no (unknown) (unknown) Variability: (units (u nknown) date) Moderate (11-25) unknown) (unknown) (no (unknown) (unknown) Varicella-Zoster (units (unknown) date) IgG Antibody 339 unknown) index (Immune >165) 03/16/22 (unknown) (no (unknown) (unknown) WBC 7.1 (units (unkno wn) date) unknown) (unknown) (no (unknown) (unknown) WBC (units (unkno wn) date) unknown) (unknown) (no (unknown) (unknown) WG (units (unkno wn) date) unknown) (unknown) (no (unknown) (unknown) [Embedded Image (units (unknown) date) Not Available] unknown) (unknown) (no (unknown) (unknown) alcohol intake: (units (unknown) date) former unknown) (unknown) (no (unknown) (unknown) amoxicillin (units (un known) date) Allergy Mild Rash unknown) Verified 07/15/22 09:55 (unknown) (no (unknown) (unknown) azithromycin (units (u nknown) date) Allergy Mild RASH unknown) AND Verified 07/15/22 09:55 (unknown) (no (unknown) (unknown) caffeine: Yes (units ( unknown) date) unknown) (unknown) (no (unknown) (unknown) carbon monox (units (u nknown) date) detector in home: unknown) Yes (unknown) (no (unknown) (unknown) chlorhexidine (units ( unknown) date) AdvReac unknown) Intermediate Blister Verified 07/15/22 09:55 (unknown) (no (unknown) (unknown) clobetasol 0.05 (units (unknown) date) % topical unknown) ointment 1 applic topical BID #45 grams 07/01/22 (unknown) (no (unknown) (unknown) current (units (unkno wn) date) occupational unknown) exposures/hazards : No (unknown) (no (unknown) (unknown) daily servings (units (unknown) date) fruits/ve-1 unknown) (unknown) (no (unknown) (unknown) diagnosed, (units (unk nown) date) unknown control) unknown) and chronic HTN who presented for NST. 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 in unknown) home: Yes (unknown) (no (unknown) (unknown) firearms in (units (un known) date) home: No unknown) (unknown) (no (unknown) (unknown) household (units (unkn own) date) members: unknown) significant other and children (unknown) (no (unknown) (unknown) housing: (units (unkno wn) date) apartment unknown) (unknown) (no (unknown) (unknown) hyperemesis 1st (units (unknown) date) trimester unknown) (unknown) (no (unknown) (unknown) labetalol 100 mg (units (unknown) date) tablet 400 mg PO unknown) BID #360 tabs 08/04/22 07/15/22 Rx (unknown) (no (unknown) (unknown) latex AdvReac (units ( unknown) date) Mild ITCHING unknown) Verified 07/15/22 09:55 (unknown) (no (unknown) (unknown) lives (units (unkno wn) date) independently: unknown) Yes (unknown) (no (unknown) (unknown) marital status: (units (unknown) date) unmarried,living unknown) together (unknown) (no (unknown) (unknown) nifedipine 30 mg (units (unknown) date) tablet,extended unknown) 30 mg PO DAILY #30 tabs 08/04/22 Rx (unknown) (no (unknown) (unknown) number of (units (unkn own) date) children: 2 unknown) (unknown) (no (unknown) (unknown) occupational (units (u nknown) date) status: employed unknown) (unknown) (no (unknown) (unknown) other Camron (units (un known) date) unknown) (unknown) (no (unknown) (unknown) other Jeaneth (units (un known) date) unknown) (unknown) (no (unknown) (unknown) pets and (units (unkno wn) date) animals: Yes (1 unknown) cat (pt is not managing litter box)) (unknown) (no (unknown) (unknown) pounds weight (units ( unknown) date) gain (10) unknown) (unknown) (no (unknown) (unknown) prenat.vits,miguel, (units (unknown) date) [id number] 1 unknown) tab PO DAILY 01/27/22 07/15/22 History (unknown) (no (unknown) (unknown) release 24 hr (units ( unknown) date) unknown) (unknown) (no (unknown) (unknown) seatbelt use: (units ( unknown) date) always unknown) (unknown) (no (unknown) (unknown) second hand (units (un known) date) exposure: No unknown) (unknown) (no (unknown) (unknown) special fly (units ( unknown) date) needs: No unknown) (unknown) (no (unknown) (unknown) substance use (units ( unknown) date) type: marijuana unknown) (unknown) (no (unknown) (unknown) water heater (units (u nknown) date) temp set < 120 unknown) deg: Yes (Will check and adjust if needed) (unknown) (no (unknown) (unknown) well-balanced (units ( unknown) date) diet: about half unknown) the time (unknown) (no (unknown) (unknown) working smoke (units ( unknown) date) detector in home: unknown) Yes Result panel 12 (unknown) (no (unknown) (unknown) (no value) (units (unk nown) date) unknown) (unknown) (no (unknown) (unknown) -: Urine: (units (unkn own) date) positive (E coli) unknown) (unknown) (no (unknown) (unknown) [id number] (units (unkno wn) date) unknown) (unknown) (no (unknown) (unknown) 12/10/14 39 8 lb (units (unknown) date) 3 oz Female unknown) live - full term (unknown) (no (unknown) (unknown) 01/06/11 41 1 9 (units (unknown) date) lb 1 oz Male unknown) live - full term (unknown) (no (unknown) (unknown) 07/15/22 Rx (units (un known) date) unknown) (unknown) (no (unknown) (unknown) 08/04/22 (units (unkno wn) date) 08/04/22 08/04/22 unknown) (unknown) (no (unknown) (unknown) 08/04/22 Unknown (units (unknown) date) unknown) (unknown) (no (unknown) (unknown) 08/04/22 (units (unkno wn) date) unknown) (unknown) (no (unknown) (unknown) 12:38 (units (unkno wn) date) unknown) (unknown) (no (unknown) (unknown) 13:55 17:38 (units (un known) date) Unknown unknown) (unknown) (no (unknown) (unknown) :38 (units (unkno wn) date) unknown) (unknown) (no (unknown) (unknown) ALT 25 (units (unkno wn) date) unknown) (unknown) (no (unknown) (unknown) ALT (units (unkno wn) date) unknown) (unknown) (no (unknown) (unknown) AST 31 (units (unkno wn) date) unknown) (unknown) (no (unknown) (unknown) AST (units (unkno wn) date) unknown) (unknown) (no (unknown) (unknown) Abd: soft, (units (unk nown) date) nontender, gravid unknown) (unknown) (no (unknown) (unknown) Age/Sex: 32 / F (units (unknown) date) unknown) (unknown) (no (unknown) (unknown) Albumin 3.5 (units (un known) date) unknown) (unknown) (no (unknown) (unknown) Albumin (units (unkno wn) date) unknown) (unknown) (no (unknown) (unknown) Albumin/Globulin (units (unknown) date) Ratio 1.0 unknown) (unknown) (no (unknown) (unknown) Albumin/Globulin (units (unknown) date) Ratio unknown) (unknown) (no (unknown) (unknown) Alkaline (units (unkno wn) date) Phosphatase 100 unknown) (unknown) (no (unknown) (unknown) Alkaline (units (unkno wn) date) Phosphatase unknown) (unknown) (no (unknown) (unknown) Allergies (units (unkn own) date) unknown) (unknown) (no (unknown) (unknown) Allergy/AdvReac (units (unknown) date) Type Severity unknown) Reaction Status Date / Time (unknown) (no (unknown) (unknown) Antibiotics) (units (u nknown) date) unknown) (unknown) (no (unknown) (unknown) Antibody Screen (units (unknown) date) Negative 03/16/22 unknown) 12:38 (unknown) (no (unknown) (unknown) Assessment and (units (unknown) date) Plan narrative: unknown) (unknown) (no (unknown) (unknown) Assessment and (units (unknown) date) Plan unknown) (unknown) (no (unknown) (unknown) BUN 10 (units (unkno wn) date) unknown) (unknown) (no (unknown) (unknown) BUN (units (unkno wn) date) unknown) (unknown) (no (unknown) (unknown) BUN/Creatinine (units (unknown) date) Ratio 14.9 unknown) (unknown) (no (unknown) (unknown) BUN/Creatinine (units (unknown) date) Ratio unknown) (unknown) (no (unknown) (unknown) Baseline (units (unknown) date) heart rate: 130 unknown) (unknown) (no (unknown) (unknown) Baso # (Auto) 0 (units (unknown) date) unknown) (unknown) (no (unknown) (unknown) Baso # (Auto) (units ( unknown) date) unknown) (unknown) (no (unknown) (unknown) Baso % (Auto) (units ( unknown) date) 0.2 unknown) (unknown) (no (unknown) (unknown) Baso % (Auto) (units ( unknown) date) unknown) (unknown) (no (unknown) (unknown) Betamethasone (units ( unknown) date) administered at unknown) 16:13. 20mg IV Labetalol given at 17:26. (unknown) (no (unknown) (unknown) Blood Type O (units (u nknown) date) Positive 03/16/22 unknown) 12:38 (unknown) (no (unknown) (unknown) Breastfeed Preg (units (unknown) date) Comp Name unknown) (unknown) (no (unknown) (unknown) CV: RRR, no (units (un known) date) murmurs unknown) (unknown) (no (unknown) (unknown) Calcium 10.2 (units (u nknown) date) unknown) (unknown) (no (unknown) (unknown) Calcium (units (unkno wn) date) unknown) (unknown) (no (unknown) (unknown) Carbon Dioxide (units (unknown) date) 22 unknown) (unknown) (no (unknown) (unknown) Carbon Dioxide (units (unknown) date) unknown) (unknown) (no (unknown) (unknown) Chief complaint: (units (unknown) date) 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 (unknown) (no (unknown) (unknown) Chloride 105 (units (u nknown) date) unknown) (unknown) (no (unknown) (unknown) Chloride (units (unkno wn) date) unknown) (unknown) (no (unknown) (unknown) Chronic cough (units ( unknown) date) (-2000) unknown) (unknown) (no (unknown) (unknown) Creatinine 0.67 (units (unknown) date) unknown) (unknown) (no (unknown) (unknown) Creatinine (units (unk nown) date) unknown) (unknown) (no (unknown) (unknown) Current Estimate (units (unknown) date) 09/16/22 LMP unknown) (Certain) 33w 6d (unknown) (no (unknown) (unknown) : 1990 (units (unknown) date) Acct:[id number] unknown) (unknown) (no (unknown) (unknown) Date Patient (units (u nknown) date) Seen: 08/04/22 unknown) (unknown) (no (unknown) (unknown) Date of Service: (units (unknown) date) 08/04/22 unknown) (unknown) (no (unknown) (unknown) Date of (units (unkno wn) date) admission: unknown) 08/04/22 (unknown) (no (unknown) (unknown) Date/Time (units (unkn own) date) unknown) (unknown) (no (unknown) (unknown) Dating criteria (units (unknown) date) OB: LMP confirmed unknown) by 1st trimester US (unknown) (no (unknown) (unknown) Del. Date (units (unkn own) date) GA/Weeks Labor unknown) Lgth Wt Sex Route Outcome Anesthesia Place (unknown) (no (unknown) (unknown) Delivery Date: (units (unknown) date) 12/10/14 Last unknown) Updated by: Bianca Arenas R.N. (unknown) (no (unknown) (unknown) Delivery Date: (units (unknown) date) 01/06/11 Last unknown) Updated by: Bianca Arenas R.N. (unknown) (no (unknown) (unknown) Delv (units (unkno wn) date) unknown) (unknown) (no (unknown) (unknown) Depression (units (unk nown) date) unknown) (unknown) (no (unknown) (unknown) CLAU Calculator (units (unknown) date) unknown) (unknown) (no (unknown) (unknown) Eos # (Auto) 100 (units (unknown) date) unknown) (unknown) (no (unknown) (unknown) Eos # (Auto) (units (u nknown) date) unknown) (unknown) (no (unknown) (unknown) Eos % (Auto) 1.2 (units (unknown) date) L unknown) (unknown) (no (unknown) (unknown) Eos % (Auto) (units (u nknown) date) unknown) (unknown) (no (unknown) (unknown) Estimated (units (unkn own) date) Delivery Date unknown) Method Current (unknown) (no (unknown) (unknown) Estimated GFR > (units (unknown) date) 60 unknown) (unknown) (no (unknown) (unknown) Estimated GFR (units ( unknown) date) unknown) (unknown) (no (unknown) (unknown) Estimated (units (unkn own) date) Gestational Age unknown) (weeks): 33w6d (unknown) (no (unknown) (unknown) Evaluation (units (unk nown) date) unknown) (unknown) (no (unknown) (unknown) Exam Narrative: (units (unknown) date) unknown) (unknown) (no (unknown) (unknown) Ext: no edema (units ( unknown) date) unknown) (unknown) (no (unknown) (unknown) External Labs (units ( unknown) date) unknown) (unknown) (no (unknown) (unknown) Family History (units (unknown) date) (Reviewed unknown) 07/30/22 @ 11:31 by Karina Gaytan DO) (unknown) (no (unknown) (unknown) Monitor (units ( unknown) date) Decelerations: unknown) Absent (unknown) (no (unknown) (unknown) monitor (units ( unknown) date) accelerations: unknown) Present (unknown) (no (unknown) (unknown) Gen: NAD, (units (unkn own) date) sitting unknown) comfortably in bed, appears well (unknown) (no (unknown) (unknown) Genetic Screens: (units (unknown) date) Quad screen: unknown) Normal (unknown) (no (unknown) (unknown) Globulin 3.4 (units (u nknown) date) unknown) (unknown) (no (unknown) (unknown) Globulin (units (unkno wn) date) unknown) (unknown) (no (unknown) (unknown) Glucose 79 (units (unk nown) date) unknown) (unknown) (no (unknown) (unknown) Glucose (units (unkno wn) date) unknown) (unknown) (no (unknown) (unknown) Grandfather (units (un known) date) Hypertension unknown) (unknown) (no (unknown) (unknown) Grandmother Type (units (unknown) date) 2 diabetes unknown) mellitus (unknown) (no (unknown) (unknown) : 3 (units (unk nown) date) unknown) (unknown) (no (unknown) (unknown) Hct 27.1 L (units (unk nown) date) unknown) (unknown) (no (unknown) (unknown) Hct (units (unkno wn) date) unknown) (unknown) (no (unknown) (unknown) Hematocrit 27.1 (units (unknown) date) % (36-46) L unknown) 08/04/22 23:59 (unknown) (no (unknown) (unknown) Hemoglobin 9.6 (units (unknown) date) g/dL (12.0-16.0) unknown) L 08/04/22 23:59 (unknown) (no (unknown) (unknown) Hepatitis B (units (un known) date) Surface Antigen unknown) Negative s/c (NEGATIVE) 03/16/22 12 (unknown) (no (unknown) (unknown) Hepatitis C (units (un known) date) Antibody Negative unknown) s/c (NEGATIVE) 03/16/22 12:38 (unknown) (no (unknown) (unknown) Hgb 9.6 L (units (unkn own) date) unknown) (unknown) (no (unknown) (unknown) Hgb (units (unkno wn) date) unknown) (unknown) (no (unknown) (unknown) History of (units (unk nown) date) Present Condition unknown) (unknown) (no (unknown) (unknown) Home Medications (units (unknown) date) and Allergies unknown) (unknown) (no (unknown) (unknown) Home Medications (units (unknown) date) unknown) (unknown) (no (unknown) (unknown) Hypertension (units (u nknown) date) unknown) (unknown) (no (unknown) (unknown) IH 3 months (units (un known) date) unknown) (unknown) (no (unknown) (unknown) IH attempted (units (u nknown) date) unknown) (unknown) (no (unknown) (unknown) ITCHING (units (unkno wn) date) unknown) (unknown) (no (unknown) (unknown) [facility] (units (unknown) date) [address] unknown) [place] [id number] (unknown) (no (unknown) (unknown) Laboratory (units (unk nown) date) Results - last 24 unknown) hr (unknown) (no (unknown) (unknown) Labs (units (unkno wn) date) unknown) (unknown) (no (unknown) (unknown) Labs: (units (unkno wn) date) unknown) (unknown) (no (unknown) (unknown) Last OB Lab (units (un known) date) Results: unknown) (unknown) (no (unknown) (unknown) Lymph # (Auto) (units (unknown) date) 900 L unknown) (unknown) (no (unknown) (unknown) Lymph # (Auto) (units (unknown) date) unknown) (unknown) (no (unknown) (unknown) Lymph % (Auto) (units (unknown) date) 12.8 L unknown) (unknown) (no (unknown) (unknown) Lymph % (Auto) (units (unknown) date) unknown) (unknown) (no (unknown) (unknown) MCH 32.8 (units (unkno wn) date) unknown) (unknown) (no (unknown) (unknown) MCH (units (unkno wn) date) unknown) (unknown) (no (unknown) (unknown) MCHC 35.3 (units (unkn own) date) unknown) (unknown) (no (unknown) (unknown) MCHC (units (unkno wn) date) unknown) (unknown) (no (unknown) (unknown) MCV 92.7 (units (unkno wn) date) unknown) (unknown) (no (unknown) (unknown) MCV (units (unkno wn) date) unknown) (unknown) (no (unknown) (unknown) Medical History (units (unknown) date) (Reviewed unknown) 07/30/22 @ 11:31 by Karina Gaytan DO) (unknown) (no (unknown) (unknown) Medical (units (unkno wn) date) complications OB: unknown) cardiovascular (chronic hypertension) (unknown) (no (unknown) (unknown) Medication (units (unk nown) date) Instructions unknown) Recorded Confirmed Type (unknown) (no (unknown) (unknown) Meds (units (unkno wn) date) unknown) (unknown) (no (unknown) (unknown) [place] # (Auto) (units ( unknown) date) 600 unknown) (unknown) (no (unknown) (unknown) [place] # (Auto) (units ( unknown) date) unknown) (unknown) (no (unknown) (unknown) [place] % (Auto) (units ( unknown) date) 8.6 unknown) (unknown) (no (unknown) (unknown) [place] % (Auto) (units ( unknown) date) unknown) (unknown) (no (unknown) (unknown) Mother Age: 51 (units (unknown) date) Stroke unknown) (unknown) (no (unknown) (unknown) Narrative (units (unkn own) date) unknown) (unknown) (no (unknown) (unknown) Narrative: (units (unk nown) date) unknown) (unknown) (no (unknown) (unknown) Neuro: no (units (unkn own) date) clonus, reflexes unknown) (unknown) (no (unknown) (unknown) Neut # (Auto) (units ( unknown) date) 5500 unknown) (unknown) (no (unknown) (unknown) Neut # (Auto) (units ( unknown) date) unknown) (unknown) (no (unknown) (unknown) Neut % (Auto) (units ( unknown) date) 77.2 H unknown) (unknown) (no (unknown) (unknown) Neut % (Auto) (units ( unknown) date) unknown) (unknown) (no (unknown) (unknown) OB Exam (units (unkno wn) date) unknown) (unknown) (no (unknown) (unknown) OB HPI (units (unkno wn) date) unknown) (unknown) (no (unknown) (unknown) [employer] History + (units (unknown) date) Physical unknown) (unknown) (no (unknown) (unknown) Objective (units (unkn own) date) unknown) (unknown) (no (unknown) (unknown) Obstetrical (units (un known) date) complications: unknown) gestational diabetes and preeclampsia (unknown) (no (unknown) (unknown) PFSH (units (unkno wn) date) unknown) (unknown) (no (unknown) (unknown) PUPP (pruritic (units (unknown) date) urticarial unknown) papules and plaques of ) (unknown) (no (unknown) (unknown) PUPPPS rash (units (un known) date) unknown) (unknown) (no (unknown) (unknown) Para: 2 (units (unkno wn) date) unknown) (unknown) (no (unknown) (unknown) Past Pregnancies (units (unknown) date) unknown) (unknown) (no (unknown) (unknown) Patient: (units (unkno wn) date) Ga Hagan L unknown) MR#: [id number] (unknown) (no (unknown) (unknown) Plantar (units (unkno wn) date) fasciitis (-2016) unknown) (unknown) (no (unknown) (unknown) Plt Count 177 (units ( unknown) date) unknown) (unknown) (no (unknown) (unknown) Plt Count (units (unkn own) date) unknown) (unknown) (no (unknown) (unknown) Potassium 3.5 (units ( unknown) date) unknown) (unknown) (no (unknown) (unknown) Potassium (units (unkn own) date) unknown) (unknown) (no (unknown) (unknown) Preadmission (units (u nknown) date) Labs unknown) (unknown) (no (unknown) (unknown) care: (units (unknown) date) good care, unknown) initiated at week # (8), number of visits (8) and (unknown) (no (unknown) (unknown) Prior (units (unkno wn) date) (ies) unknown) (unknown) (no (unknown) (unknown) Protein/Creatini (units (unknown) date) n Ratio 0.36 unknown) (unknown) (no (unknown) (unknown) Protein/Creatini (units (unknown) date) n Ratio unknown) (unknown) (no (unknown) (unknown) Provider: (units (unkn own) date) Rabia Gooden MD unknown) (unknown) (no (unknown) (unknown) Psoriasis (units (unkn own) date) unknown) (unknown) (no (unknown) (unknown) Pt is a 32yo (units (u nknown) date) at 33w6d unknown) with complicated by GDM (recently (unknown) (no (unknown) (unknown) RBC 2.92 L (units (unk nown) date) unknown) (unknown) (no (unknown) (unknown) RBC (units (unkno wn) date) unknown) (unknown) (no (unknown) (unknown) RDW 15.0 H (units (unk nown) date) unknown) (unknown) (no (unknown) (unknown) RDW (units (unkno wn) date) unknown) (unknown) (no (unknown) (unknown) Resp: clear to (units (unknown) date) auscultation unknown) bilaterally (unknown) (no (unknown) (unknown) Result Diagrams: (units (unknown) date) unknown) (unknown) (no (unknown) (unknown) Rubella Antibody (units (unknown) date) 7.3 IU/mL (>15) L unknown) 03/16/22 12:38 (unknown) (no (unknown) (unknown) SARS-CoV-2 (PCR) (units (unknown) date) Negative unknown) (unknown) (no (unknown) (unknown) SARS-CoV-2 (PCR) (units (unknown) date) unknown) (unknown) (no (unknown) (unknown) Signed By: (units (unk nown) date) unknown) (unknown) (no (unknown) (unknown) Smoking Status: (units (unknown) date) Never smoker unknown) (unknown) (no (unknown) (unknown) Social History (units (unknown) date) (Reviewed unknown) 07/30/22 @ 11:31 by Karina Gaytan DO) (unknown) (no (unknown) (unknown) Sodium 137 (units (unk nown) date) unknown) (unknown) (no (unknown) (unknown) Sodium (units (unkno wn) date) unknown) (unknown) (no (unknown) (unknown) Status post (units (un known) date) appendectomy unknown) (-1993) (unknown) (no (unknown) (unknown) Status post (units (un known) date) delivery unknown) (01/06/11) (unknown) (no (unknown) (unknown) Status post (units (un known) date) delivery unknown) (unknown) (no (unknown) (unknown) Sulfa (units (unkno wn) date) (Sulfonamide unknown) Allergy Mild RASH Verified 07/15/22 09:55 (unknown) (no (unknown) (unknown) Surgical History (units (unknown) date) (Reviewed unknown) 07/30/22 @ 11:31 by Karina Gaytan DO) (unknown) (no (unknown) (unknown) The pts BPs then (units (unknown) date) spiked to 164/88 unknown) with repeat of 166/98. 20mg IV Latetalol was (unknown) (no (unknown) (unknown) The pts (units (unknown) date) was complicated unknown) by chronic hypertension, currently on 400mg IV (unknown) (no (unknown) (unknown) Time Patient (units (u nknown) date) Seen: 18:02 unknown) (unknown) (no (unknown) (unknown) Total Bilirubin (units (unknown) date) 0.4 unknown) (unknown) (no (unknown) (unknown) Total Bilirubin (units (unknown) date) unknown) (unknown) (no (unknown) (unknown) Total Protein (units ( unknown) date) 6.9 unknown) (unknown) (no (unknown) (unknown) Total Protein (units ( unknown) date) unknown) (unknown) (no (unknown) (unknown) Type(s) of (units (unk nown) date) exercise: none unknown) (unknown) (no (unknown) (unknown) U Random Total (units (unknown) date) Protein 18 H unknown) (unknown) (no (unknown) (unknown) U Random Total (units (unknown) date) Protein unknown) (unknown) (no (unknown) (unknown) Ultrasounds: (units (u nknown) date) normal 1st unknown) trimester US and normal mid trimester US (unknown) (no (unknown) (unknown) Unknown (units (unkno wn) date) unknown) (unknown) (no (unknown) (unknown) Uric Acid 6.2 (units ( unknown) date) unknown) (unknown) (no (unknown) (unknown) Uric Acid (units (unkn own) date) unknown) (unknown) (no (unknown) (unknown) Urine Creatinine (units (unknown) date) 48.8 unknown) (unknown) (no (unknown) (unknown) Urine Creatinine (units (unknown) date) unknown) (unknown) (no (unknown) (unknown) Variability: (units (u nknown) date) Moderate (11-25) unknown) (unknown) (no (unknown) (unknown) Varicella-Zoster (units (unknown) date) IgG Antibody 339 unknown) index (Immune >165) 03/16/22 (unknown) (no (unknown) (unknown) WBC 7.1 (units (unkno wn) date) unknown) (unknown) (no (unknown) (unknown) WBC (units (unkno wn) date) unknown) (unknown) (no (unknown) (unknown) WG (units (unkno wn) date) unknown) (unknown) (no (unknown) (unknown) [Embedded Image (units (unknown) date) Not Available] unknown) (unknown) (no (unknown) (unknown) alcohol intake: (units (unknown) date) former unknown) (unknown) (no (unknown) (unknown) amoxicillin (units (un known) date) Allergy Mild Rash unknown) Verified 07/15/22 09:55 (unknown) (no (unknown) (unknown) azithromycin (units (u nknown) date) Allergy Mild RASH unknown) AND Verified 07/15/22 09:55 (unknown) (no (unknown) (unknown) caffeine: Yes (units ( unknown) date) unknown) (unknown) (no (unknown) (unknown) carbon monox (units (u nknown) date) detector in home: unknown) Yes (unknown) (no (unknown) (unknown) chlorhexidine (units ( unknown) date) AdvReac unknown) Intermediate Blister Verified 07/15/22 09:55 (unknown) (no (unknown) (unknown) clobetasol 0.05 (units (unknown) date) % topical unknown) ointment 1 applic topical BID #45 grams 07/01/22 (unknown) (no (unknown) (unknown) current (units (unkno wn) date) occupational unknown) exposures/hazards : No (unknown) (no (unknown) (unknown) daily servings (units (unknown) date) fruits/ve-1 unknown) (unknown) (no (unknown) (unknown) diagnosed, (units (unk nown) date) unknown control) unknown) and chronic HTN who presented for NST for cHTN. 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 The pt (units ( unknown) date) continues to deny unknown) any symptoms. (unknown) (no (unknown) (unknown) headache. She (units ( unknown) date) was given one PO unknown) dose of Nifedipine 30mg XR. Lab work returned (unknown) (no (unknown) (unknown) household (units (unkn own) date) members: unknown) significant other and children (unknown) (no (unknown) (unknown) housing: (units (unkno wn) date) apartment unknown) (unknown) (no (unknown) (unknown) hyperemesis 1st (units (unknown) date) trimester unknown) (unknown) (no (unknown) (unknown) labetalol 100 mg (units (unknown) date) tablet 400 mg PO unknown) BID #360 tabs 08/04/22 07/15/22 Rx (unknown) (no (unknown) (unknown) latex AdvReac (units ( unknown) date) Mild ITCHING unknown) Verified 07/15/22 09:55 (unknown) (no (unknown) (unknown) lives (units (unkno wn) date) independently: unknown) Yes (unknown) (no (unknown) (unknown) marital status: (units (unknown) date) unmarried,living unknown) together (unknown) (no (unknown) (unknown) nifedipine 30 mg (units (unknown) date) tablet,extended unknown) 30 mg PO DAILY #30 tabs 08/04/22 Rx (unknown) (no (unknown) (unknown) number of (units (unkn own) date) children: 2 unknown) (unknown) (no (unknown) (unknown) occupational (units (u nknown) date) status: employed unknown) (unknown) (no (unknown) (unknown) other Camron (units (un known) date) unknown) (unknown) (no (unknown) (unknown) other Jeaneth (units (un known) date) unknown) (unknown) (no (unknown) (unknown) pets and (units (unkno wn) date) animals: Yes (1 unknown) cat (pt is not managing litter box)) (unknown) (no (unknown) (unknown) pounds weight (units ( unknown) date) gain (10) unknown) (unknown) (no (unknown) (unknown) prenat.vits,miguel, (units (unknown) date) xrs-smii-zaorl 1 unknown) tab PO DAILY 01/27/22 07/15/22 History (unknown) (no (unknown) (unknown) release 24 hr (units ( unknown) date) unknown) (unknown) (no (unknown) (unknown) reports being (units ( unknown) date) asymptomatic unknown) without swelling, RUQ pain, vision changes, or (unknown) (no (unknown) (unknown) seatbelt use: (units ( unknown) date) always unknown) (unknown) (no (unknown) (unknown) second hand (units (un known) date) exposure: No unknown) (unknown) (no (unknown) (unknown) special fly (units ( unknown) date) needs: No unknown) (unknown) (no (unknown) (unknown) substance use (units ( unknown) date) type: marijuana unknown) (unknown) (no (unknown) (unknown) was reassuring, (units (unknown) date) however pts BPs unknown) were elevated to the 140-150s/80-90s. The pt (unknown) (no (unknown) (unknown) water heater (units (u nknown) date) temp set < 120 unknown) deg: Yes (Will check and adjust if needed) (unknown) (no (unknown) (unknown) well-balanced (units ( unknown) date) diet: about half unknown) the time (unknown) (no (unknown) (unknown) without evidence (units (unknown) date) of HELLP, however unknown) did have elevated protein/creatinin e ratio. (unknown) (no (unknown) (unknown) working smoke (units ( unknown) date) detector in home: unknown) Yes Result panel 13 (unknown) (no (unknown) (unknown) (no value) (units (unk nown) date) unknown) (unknown) (no (unknown) (unknown) -: Urine: (units (unkn own) date) positive (E coli) unknown) (unknown) (no (unknown) (unknown) [id number] (units (unkno wn) date) unknown) (unknown) (no (unknown) (unknown) 12/10/14 39 8 lb (units (unknown) date) 3 oz Female unknown) live - full term (unknown) (no (unknown) (unknown) 01/06/11 41 1 9 (units (unknown) date) lb 1 oz Male unknown) live - full term (unknown) (no (unknown) (unknown) 07/15/22 Rx (units (un known) date) unknown) (unknown) (no (unknown) (unknown) 08/04/22 (units (unkno wn) date) 08/04/22 08/04/22 unknown) (unknown) (no (unknown) (unknown) 08/04/22 Unknown (units (unknown) date) unknown) (unknown) (no (unknown) (unknown) 08/04/22 (units (unkno wn) date) unknown) (unknown) (no (unknown) (unknown) 12:38 (units (unkno wn) date) unknown) (unknown) (no (unknown) (unknown) 13:55 17:38 (units (un known) date) Unknown unknown) (unknown) (no (unknown) (unknown) :38 (units (unkno wn) date) unknown) (unknown) (no (unknown) (unknown) ALT 25 (units (unkno wn) date) unknown) (unknown) (no (unknown) (unknown) ALT (units (unkno wn) date) unknown) (unknown) (no (unknown) (unknown) AST 31 (units (unkno wn) date) unknown) (unknown) (no (unknown) (unknown) AST (units (unkno wn) date) unknown) (unknown) (no (unknown) (unknown) Abd: soft, (units (unk nown) date) nontender, gravid unknown) (unknown) (no (unknown) (unknown) Age/Sex: 32 / F (units (unknown) date) unknown) (unknown) (no (unknown) (unknown) Albumin 3.5 (units (un known) date) unknown) (unknown) (no (unknown) (unknown) Albumin (units (unkno wn) date) unknown) (unknown) (no (unknown) (unknown) Albumin/Globulin (units (unknown) date) Ratio 1.0 unknown) (unknown) (no (unknown) (unknown) Albumin/Globulin (units (unknown) date) Ratio unknown) (unknown) (no (unknown) (unknown) Alkaline (units (unkno wn) date) Phosphatase 100 unknown) (unknown) (no (unknown) (unknown) Alkaline (units (unkno wn) date) Phosphatase unknown) (unknown) (no (unknown) (unknown) Allergies (units (unkn own) date) unknown) (unknown) (no (unknown) (unknown) Allergy/AdvReac (units (unknown) date) Type Severity unknown) Reaction Status Date / Time (unknown) (no (unknown) (unknown) Antibiotics) (units (u nknown) date) unknown) (unknown) (no (unknown) (unknown) Antibody Screen (units (unknown) date) Negative 03/16/22 unknown) 12:38 (unknown) (no (unknown) (unknown) Assessment and (units (unknown) date) Plan narrative: unknown) (unknown) (no (unknown) (unknown) Assessment and (units (unknown) date) Plan unknown) (unknown) (no (unknown) (unknown) BUN 10 (units (unkno wn) date) unknown) (unknown) (no (unknown) (unknown) BUN (units (unkno wn) date) unknown) (unknown) (no (unknown) (unknown) BUN/Creatinine (units (unknown) date) Ratio 14.9 unknown) (unknown) (no (unknown) (unknown) BUN/Creatinine (units (unknown) date) Ratio unknown) (unknown) (no (unknown) (unknown) Baseline (units (unknown) date) heart rate: 130 unknown) (unknown) (no (unknown) (unknown) Baso # (Auto) 0 (units (unknown) date) unknown) (unknown) (no (unknown) (unknown) Baso # (Auto) (units ( unknown) date) unknown) (unknown) (no (unknown) (unknown) Baso % (Auto) (units ( unknown) date) 0.2 unknown) (unknown) (no (unknown) (unknown) Baso % (Auto) (units ( unknown) date) unknown) (unknown) (no (unknown) (unknown) Betamethasone (units ( unknown) date) administered at unknown) 16:13. 20mg IV Labetalol given at 17:26. (unknown) (no (unknown) (unknown) Blood Type O (units (u nknown) date) Positive 03/16/22 unknown) 12:38 (unknown) (no (unknown) (unknown) Breastfeed Preg (units (unknown) date) Comp Name unknown) (unknown) (no (unknown) (unknown) CV: RRR, no (units (un known) date) murmurs unknown) (unknown) (no (unknown) (unknown) Calcium 10.2 (units (u nknown) date) unknown) (unknown) (no (unknown) (unknown) Calcium (units (unkno wn) date) unknown) (unknown) (no (unknown) (unknown) Carbon Dioxide (units (unknown) date) 22 unknown) (unknown) (no (unknown) (unknown) Carbon Dioxide (units (unknown) date) unknown) (unknown) (no (unknown) (unknown) Chief complaint: (units (unknown) date) 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 (unknown) (no (unknown) (unknown) Chloride 105 (units (u nknown) date) unknown) (unknown) (no (unknown) (unknown) Chloride (units (unkno wn) date) unknown) (unknown) (no (unknown) (unknown) Chronic cough (units ( unknown) date) (-2000) unknown) (unknown) (no (unknown) (unknown) Creatinine 0.67 (units (unknown) date) unknown) (unknown) (no (unknown) (unknown) Creatinine (units (unk nown) date) unknown) (unknown) (no (unknown) (unknown) Current Estimate (units (unknown) date) 09/16/22 LMP unknown) (Certain) 33w 6d (unknown) (no (unknown) (unknown) : 1990 (units (unknown) date) Acct:[id number] unknown) (unknown) (no (unknown) (unknown) Date Patient (units (u nknown) date) Seen: 08/04/22 unknown) (unknown) (no (unknown) (unknown) Date of Service: (units (unknown) date) 08/04/22 unknown) (unknown) (no (unknown) (unknown) Date of (units (unkno wn) date) admission: unknown) 08/04/22 (unknown) (no (unknown) (unknown) Date/Time (units (unkn own) date) unknown) (unknown) (no (unknown) (unknown) Dating criteria (units (unknown) date) OB: LMP confirmed unknown) by 1st trimester US (unknown) (no (unknown) (unknown) Del. Date (units (unkn own) date) GA/Weeks Labor unknown) Lgth Wt Sex Route Outcome Anesthesia Place (unknown) (no (unknown) (unknown) Delivery Date: (units (unknown) date) 12/10/14 Last unknown) Updated by: Bianca Arenas R.N. (unknown) (no (unknown) (unknown) Delivery Date: (units (unknown) date) 01/06/11 Last unknown) Updated by: Bianca Arenas R.N. (unknown) (no (unknown) (unknown) Delv (units (unkno wn) date) unknown) (unknown) (no (unknown) (unknown) Depression (units (unk nown) date) unknown) (unknown) (no (unknown) (unknown) CLAU Calculator (units (unknown) date) unknown) (unknown) (no (unknown) (unknown) Eos # (Auto) 100 (units (unknown) date) unknown) (unknown) (no (unknown) (unknown) Eos # (Auto) (units (u nknown) date) unknown) (unknown) (no (unknown) (unknown) Eos % (Auto) 1.2 (units (unknown) date) L unknown) (unknown) (no (unknown) (unknown) Eos % (Auto) (units (u nknown) date) unknown) (unknown) (no (unknown) (unknown) Estimated (units (unkn own) date) Delivery Date unknown) Method Current (unknown) (no (unknown) (unknown) Estimated GFR > (units (unknown) date) 60 unknown) (unknown) (no (unknown) (unknown) Estimated GFR (units ( unknown) date) unknown) (unknown) (no (unknown) (unknown) Estimated (units (unkn own) date) Gestational Age unknown) (weeks): 33w6d (unknown) (no (unknown) (unknown) Evaluation (units (unk nown) date) unknown) (unknown) (no (unknown) (unknown) Exam Narrative: (units (unknown) date) unknown) (unknown) (no (unknown) (unknown) Ext: no edema (units ( unknown) date) unknown) (unknown) (no (unknown) (unknown) External Labs (units ( unknown) date) unknown) (unknown) (no (unknown) (unknown) Family History (units (unknown) date) (Reviewed unknown) 07/30/22 @ 11:31 by Karina Gaytan DO) (unknown) (no (unknown) (unknown) Monitor (units ( unknown) date) Decelerations: unknown) Absent (unknown) (no (unknown) (unknown) monitor (units ( unknown) date) accelerations: unknown) Present (unknown) (no (unknown) (unknown) Gen: NAD, (units (unkn own) date) sitting unknown) comfortably in bed, appears well (unknown) (no (unknown) (unknown) Genetic Screens: (units (unknown) date) Quad screen: unknown) Normal (unknown) (no (unknown) (unknown) Globulin 3.4 (units (u nknown) date) unknown) (unknown) (no (unknown) (unknown) Globulin (units (unkno wn) date) unknown) (unknown) (no (unknown) (unknown) Glucose 79 (units (unk nown) date) unknown) (unknown) (no (unknown) (unknown) Glucose (units (unkno wn) date) unknown) (unknown) (no (unknown) (unknown) Grandfather (units (un known) date) Hypertension unknown) (unknown) (no (unknown) (unknown) Grandmother Type (units (unknown) date) 2 diabetes unknown) mellitus (unknown) (no (unknown) (unknown) : 3 (units (unk nown) date) unknown) (unknown) (no (unknown) (unknown) Hct 27.1 L (units (unk nown) date) unknown) (unknown) (no (unknown) (unknown) Hct (units (unkno wn) date) unknown) (unknown) (no (unknown) (unknown) Hematocrit 27.1 (units (unknown) date) % (36-46) L unknown) 08/04/22 23:59 (unknown) (no (unknown) (unknown) Hemoglobin 9.6 (units (unknown) date) g/dL (12.0-16.0) unknown) L 08/04/22 23:59 (unknown) (no (unknown) (unknown) Hepatitis B (units (un known) date) Surface Antigen unknown) Negative s/c (NEGATIVE) 03/16/22 12 (unknown) (no (unknown) (unknown) Hepatitis C (units (un known) date) Antibody Negative unknown) s/c (NEGATIVE) 03/16/22 12:38 (unknown) (no (unknown) (unknown) Hgb 9.6 L (units (unkn own) date) unknown) (unknown) (no (unknown) (unknown) Hgb (units (unkno wn) date) unknown) (unknown) (no (unknown) (unknown) History of (units (unk nown) date) Present Condition unknown) (unknown) (no (unknown) (unknown) Home Medications (units (unknown) date) and Allergies unknown) (unknown) (no (unknown) (unknown) Home Medications (units (unknown) date) unknown) (unknown) (no (unknown) (unknown) Hypertension (units (u nknown) date) unknown) (unknown) (no (unknown) (unknown) IH 3 months (units (un known) date) unknown) (unknown) (no (unknown) (unknown) IH attempted (units (u nknown) date) unknown) (unknown) (no (unknown) (unknown) ITCHING (units (unkno wn) date) unknown) (unknown) (no (unknown) (unknown) [facility] (units (unknown) date) [address] unknown) [place] [address] (unknown) (no (unknown) (unknown) Labetalol BID. (units (unknown) date) unknown) (unknown) (no (unknown) (unknown) Laboratory (units (unk nown) date) Results - last 24 unknown) hr (unknown) (no (unknown) (unknown) Labs (units (unkno wn) date) unknown) (unknown) (no (unknown) (unknown) Labs: (units (unkno wn) date) unknown) (unknown) (no (unknown) (unknown) Last OB Lab (units (un known) date) Results: unknown) (unknown) (no (unknown) (unknown) Lymph # (Auto) (units (unknown) date) 900 L unknown) (unknown) (no (unknown) (unknown) Lymph # (Auto) (units (unknown) date) unknown) (unknown) (no (unknown) (unknown) Lymph % (Auto) (units (unknown) date) 12.8 L unknown) (unknown) (no (unknown) (unknown) Lymph % (Auto) (units (unknown) date) unknown) (unknown) (no (unknown) (unknown) MCH 32.8 (units (unkno wn) date) unknown) (unknown) (no (unknown) (unknown) MCH (units (unkno wn) date) unknown) (unknown) (no (unknown) (unknown) MCHC 35.3 (units (unkn own) date) unknown) (unknown) (no (unknown) (unknown) MCHC (units (unkno wn) date) unknown) (unknown) (no (unknown) (unknown) MCV 92.7 (units (unkno wn) date) unknown) (unknown) (no (unknown) (unknown) MCV (units (unkno wn) date) unknown) (unknown) (no (unknown) (unknown) Medical History (units (unknown) date) (Reviewed unknown) 07/30/22 @ 11:31 by Karina Gaytan DO) (unknown) (no (unknown) (unknown) Medical (units (unkno wn) date) complications OB: unknown) cardiovascular (chronic hypertension) (unknown) (no (unknown) (unknown) Medication (units (unk nown) date) Instructions unknown) Recorded Confirmed Type (unknown) (no (unknown) (unknown) Meds (units (unkno wn) date) unknown) (unknown) (no (unknown) (unknown) [place] # (Auto) (units ( unknown) date) 600 unknown) (unknown) (no (unknown) (unknown) [place] # (Auto) (units ( unknown) date) unknown) (unknown) (no (unknown) (unknown) [place] % (Auto) (units ( unknown) date) 8.6 unknown) (unknown) (no (unknown) (unknown) [place] % (Auto) (units ( unknown) date) unknown) (unknown) (no (unknown) (unknown) Mother Age: 51 (units (unknown) date) Stroke unknown) (unknown) (no (unknown) (unknown) Narrative (units (unkn own) date) unknown) (unknown) (no (unknown) (unknown) Narrative: (units (unk nown) date) unknown) (unknown) (no (unknown) (unknown) Neuro: no (units (unkn own) date) clonus, reflexes unknown) (unknown) (no (unknown) (unknown) Neut # (Auto) (units ( unknown) date) 5500 unknown) (unknown) (no (unknown) (unknown) Neut # (Auto) (units ( unknown) date) unknown) (unknown) (no (unknown) (unknown) Neut % (Auto) (units ( unknown) date) 77.2 H unknown) (unknown) (no (unknown) (unknown) Neut % (Auto) (units ( unknown) date) unknown) (unknown) (no (unknown) (unknown) OB Exam (units (unkno wn) date) unknown) (unknown) (no (unknown) (unknown) OB HPI (units (unkno wn) date) unknown) (unknown) (no (unknown) (unknown) [employer] History + (units (unknown) date) Physical unknown) (unknown) (no (unknown) (unknown) Objective (units (unkn own) date) unknown) (unknown) (no (unknown) (unknown) Obstetrical (units (un known) date) complications: unknown) gestational diabetes and preeclampsia (unknown) (no (unknown) (unknown) PFSH (units (unkno wn) date) unknown) (unknown) (no (unknown) (unknown) PUPP (pruritic (units (unknown) date) urticarial unknown) papules and plaques of ) (unknown) (no (unknown) (unknown) PUPPPS rash (units (un known) date) unknown) (unknown) (no (unknown) (unknown) Para: 2 (units (unkno wn) date) unknown) (unknown) (no (unknown) (unknown) Past Pregnancies (units (unknown) date) unknown) (unknown) (no (unknown) (unknown) Patient: (units (unkno wn) date) Ga Hagan L unknown) MR#: [id number] (unknown) (no (unknown) (unknown) Plantar (units (unkno wn) date) fasciitis (-2016) unknown) (unknown) (no (unknown) (unknown) Plt Count 177 (units ( unknown) date) unknown) (unknown) (no (unknown) (unknown) Plt Count (units (unkn own) date) unknown) (unknown) (no (unknown) (unknown) Potassium 3.5 (units ( unknown) date) unknown) (unknown) (no (unknown) (unknown) Potassium (units (unkn own) date) unknown) (unknown) (no (unknown) (unknown) Preadmission (units (u nknown) date) Labs unknown) (unknown) (no (unknown) (unknown) care: (units (unknown) date) good care, unknown) initiated at week # (8), number of visits (8) and (unknown) (no (unknown) (unknown) Prior (units (unkno wn) date) (ies) unknown) (unknown) (no (unknown) (unknown) Protein/Creatini (units (unknown) date) n Ratio 0.36 unknown) (unknown) (no (unknown) (unknown) Protein/Creatini (units (unknown) date) n Ratio unknown) (unknown) (no (unknown) (unknown) Provider: (units (unkn own) date) Rabia Gooden MD unknown) (unknown) (no (unknown) (unknown) Psoriasis (units (unkn own) date) unknown) (unknown) (no (unknown) (unknown) Pt is a 32yo (units (u nknown) date) at 33w6d unknown) with complicated by GDM (recently (unknown) (no (unknown) (unknown) RBC 2.92 L (units (unk nown) date) unknown) (unknown) (no (unknown) (unknown) RBC (units (unkno wn) date) unknown) (unknown) (no (unknown) (unknown) RDW 15.0 H (units (unk nown) date) unknown) (unknown) (no (unknown) (unknown) RDW (units (unkno wn) date) unknown) (unknown) (no (unknown) (unknown) Resp: clear to (units (unknown) date) auscultation unknown) bilaterally (unknown) (no (unknown) (unknown) Result Diagrams: (units (unknown) date) unknown) (unknown) (no (unknown) (unknown) Rubella Antibody (units (unknown) date) 7.3 IU/mL (>15) L unknown) 03/16/22 12:38 (unknown) (no (unknown) (unknown) SARS-CoV-2 (PCR) (units (unknown) date) Negative unknown) (unknown) (no (unknown) (unknown) SARS-CoV-2 (PCR) (units (unknown) date) unknown) (unknown) (no (unknown) (unknown) Signed By: (units (unk nown) date) unknown) (unknown) (no (unknown) (unknown) Smoking Status: (units (unknown) date) Never smoker unknown) (unknown) (no (unknown) (unknown) Social History (units (unknown) date) (Reviewed unknown) 07/30/22 @ 11:31 by Karina Gaytan DO) (unknown) (no (unknown) (unknown) Sodium 137 (units (unk nown) date) unknown) (unknown) (no (unknown) (unknown) Sodium (units (unkno wn) date) unknown) (unknown) (no (unknown) (unknown) Status post (units (un known) date) appendectomy unknown) () (unknown) (no (unknown) (unknown) Status post (units (un known) date) delivery unknown) (01/06/11) (unknown) (no (unknown) (unknown) Status post (units (un known) date) delivery unknown) (unknown) (no (unknown) (unknown) Sulfa (units (unkno wn) date) (Sulfonamide unknown) Allergy Mild RASH Verified 07/15/22 09:55 (unknown) (no (unknown) (unknown) Surgical History (units (unknown) date) (Reviewed unknown) 07/30/22 @ 11:31 by Karina Gaytan DO) (unknown) (no (unknown) (unknown) The pts BPs then (units (unknown) date) spiked to 164/88 unknown) with repeat of 166/98. 20mg IV Latetalol was (unknown) (no (unknown) (unknown) The pts (units (unkno wn) date) was unknown) complicated by chronic hypertension, currently on 400mg (unknown) (no (unknown) (unknown) Time Patient (units (u nknown) date) Seen: 18:02 unknown) (unknown) (no (unknown) (unknown) Total Bilirubin (units (unknown) date) 0.4 unknown) (unknown) (no (unknown) (unknown) Total Bilirubin (units (unknown) date) unknown) (unknown) (no (unknown) (unknown) Total Protein (units ( unknown) date) 6.9 unknown) (unknown) (no (unknown) (unknown) Total Protein (units ( unknown) date) unknown) (unknown) (no (unknown) (unknown) Type(s) of (units (unk nown) date) exercise: none unknown) (unknown) (no (unknown) (unknown) U Random Total (units (unknown) date) Protein 18 H unknown) (unknown) (no (unknown) (unknown) U Random Total (units (unknown) date) Protein unknown) (unknown) (no (unknown) (unknown) Ultrasounds: (units (u nknown) date) normal 1st unknown) trimester US and normal mid trimester US (unknown) (no (unknown) (unknown) Unknown (units (unkno wn) date) unknown) (unknown) (no (unknown) (unknown) Uric Acid 6.2 (units ( unknown) date) unknown) (unknown) (no (unknown) (unknown) Uric Acid (units (unkn own) date) unknown) (unknown) (no (unknown) (unknown) Urine Creatinine (units (unknown) date) 48.8 unknown) (unknown) (no (unknown) (unknown) Urine Creatinine (units (unknown) date) unknown) (unknown) (no (unknown) (unknown) Variability: (units (u nknown) date) Moderate (11-25) unknown) (unknown) (no (unknown) (unknown) Varicella-Zoster (units (unknown) date) IgG Antibody 339 unknown) index (Immune >165) 03/16/22 (unknown) (no (unknown) (unknown) WBC 7.1 (units (unkno wn) date) unknown) (unknown) (no (unknown) (unknown) WBC (units (unkno wn) date) unknown) (unknown) (no (unknown) (unknown) WG (units (unkno wn) date) unknown) (unknown) (no (unknown) (unknown) [Embedded Image (units (unknown) date) Not Available] unknown) (unknown) (no (unknown) (unknown) alcohol intake: (units (unknown) date) former unknown) (unknown) (no (unknown) (unknown) amoxicillin (units (un known) date) Allergy Mild Rash unknown) Verified 07/15/22 09:55 (unknown) (no (unknown) (unknown) azithromycin (units (u nknown) date) Allergy Mild RASH unknown) AND Verified 07/15/22 09:55 (unknown) (no (unknown) (unknown) caffeine: Yes (units ( unknown) date) unknown) (unknown) (no (unknown) (unknown) carbon monox (units (u nknown) date) detector in home: unknown) Yes (unknown) (no (unknown) (unknown) chlorhexidine (units ( unknown) date) AdvReac unknown) Intermediate Blister Verified 07/15/22 09:55 (unknown) (no (unknown) (unknown) clobetasol 0.05 (units (unknown) date) % topical unknown) ointment 1 applic topical BID #45 grams 07/01/22 (unknown) (no (unknown) (unknown) current (units (unkno wn) date) occupational unknown) exposures/hazards : No (unknown) (no (unknown) (unknown) daily servings (units (unknown) date) fruits/ve-1 unknown) (unknown) (no (unknown) (unknown) diagnosed, (units (unk nown) date) unknown control) unknown) and chronic HTN who presented for NST for cHTN. 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 The pt (units ( unknown) date) continues to deny unknown) any symptoms. (unknown) (no (unknown) (unknown) headache. She (units ( unknown) date) was given one PO unknown) dose of Nifedipine 30mg XR. Lab work returned (unknown) (no (unknown) (unknown) household (units (unkn own) date) members: unknown) significant other and children (unknown) (no (unknown) (unknown) housing: (units (unkno wn) date) apartment unknown) (unknown) (no (unknown) (unknown) hyperemesis 1st (units (unknown) date) trimester unknown) (unknown) (no (unknown) (unknown) labetalol 100 mg (units (unknown) date) tablet 400 mg PO unknown) BID #360 tabs 08/04/22 07/15/22 Rx (unknown) (no (unknown) (unknown) latex AdvReac (units ( unknown) date) Mild ITCHING unknown) Verified 07/15/22 09:55 (unknown) (no (unknown) (unknown) lives (units (unkno wn) date) independently: unknown) Yes (unknown) (no (unknown) (unknown) marital status: (units (unknown) date) unmarried,living unknown) together (unknown) (no (unknown) (unknown) nifedipine 30 mg (units (unknown) date) tablet,extended unknown) 30 mg PO DAILY #30 tabs 08/04/22 Rx (unknown) (no (unknown) (unknown) number of (units (unkn own) date) children: 2 unknown) (unknown) (no (unknown) (unknown) occupational (units (u nknown) date) status: employed unknown) (unknown) (no (unknown) (unknown) other Camron (units (un known) date) unknown) (unknown) (no (unknown) (unknown) other Jeaneth (units (un known) date) unknown) (unknown) (no (unknown) (unknown) pets and (units (unkno wn) date) animals: Yes (1 unknown) cat (pt is not managing litter box)) (unknown) (no (unknown) (unknown) pounds weight (units ( unknown) date) gain (10) unknown) (unknown) (no (unknown) (unknown) prenat.vits,miguel, (units (unknown) date) [id number]-bzntw 1 unknown) tab PO DAILY 01/27/22 07/15/22 History (unknown) (no (unknown) (unknown) release 24 hr (units ( unknown) date) unknown) (unknown) (no (unknown) (unknown) reports being (units ( unknown) date) asymptomatic unknown) without swelling, RUQ pain, vision changes, or (unknown) (no (unknown) (unknown) seatbelt use: (units ( unknown) date) always unknown) (unknown) (no (unknown) (unknown) second hand (units (un known) date) exposure: No unknown) (unknown) (no (unknown) (unknown) special fly (units ( unknown) date) needs: No unknown) (unknown) (no (unknown) (unknown) substance use (units ( unknown) date) type: marijuana unknown) (unknown) (no (unknown) (unknown) was reassuring, (units (unknown) date) however pts BPs unknown) were elevated to the 140-150s/80-90s. The pt (unknown) (no (unknown) (unknown) water heater (units (u nknown) date) temp set < 120 unknown) deg: Yes (Will check and adjust if needed) (unknown) (no (unknown) (unknown) well-balanced (units ( unknown) date) diet: about half unknown) the time (unknown) (no (unknown) (unknown) without evidence (units (unknown) date) of HELLP, however unknown) did have elevated protein/creatinin e ratio. (unknown) (no (unknown) (unknown) working smoke (units ( unknown) date) detector in home: unknown) Yes Result panel 14 (unknown) (no (unknown) (unknown) (no value) (units (unk nown) date) unknown) (unknown) (no (unknown) (unknown) -: Urine: (units (unkn own) date) positive (E coli) unknown) (unknown) (no (unknown) (unknown) [id number] (units (unkno wn) date) unknown) (unknown) (no (unknown) (unknown) 12/10/14 39 8 lb (units (unknown) date) 3 oz Female unknown) live - full term (unknown) (no (unknown) (unknown) 01/06/11 41 1 9 (units (unknown) date) lb 1 oz Male unknown) live - full term (unknown) (no (unknown) (unknown) 07/15/22 Rx (units (un known) date) unknown) (unknown) (no (unknown) (unknown) 08/04/22 (units (unkno wn) date) 08/04/22 08/04/22 unknown) (unknown) (no (unknown) (unknown) 08/04/22 Unknown (units (unknown) date) unknown) (unknown) (no (unknown) (unknown) 08/04/22 (units (unkno wn) date) unknown) (unknown) (no (unknown) (unknown) 12:38 (units (unkno wn) date) unknown) (unknown) (no (unknown) (unknown) 13:55 17:38 (units (un known) date) Unknown unknown) (unknown) (no (unknown) (unknown) :38 (units (unkno wn) date) unknown) (unknown) (no (unknown) (unknown) ALT 25 (units (unkno wn) date) unknown) (unknown) (no (unknown) (unknown) ALT (units (unkno wn) date) unknown) (unknown) (no (unknown) (unknown) AST 31 (units (unkno wn) date) unknown) (unknown) (no (unknown) (unknown) AST (units (unkno wn) date) unknown) (unknown) (no (unknown) (unknown) Abd: soft, (units (unk nown) date) nontender, gravid unknown) (unknown) (no (unknown) (unknown) Age/Sex: 32 / F (units (unknown) date) unknown) (unknown) (no (unknown) (unknown) Albumin 3.5 (units (un known) date) unknown) (unknown) (no (unknown) (unknown) Albumin (units (unkno wn) date) unknown) (unknown) (no (unknown) (unknown) Albumin/Globulin (units (unknown) date) Ratio 1.0 unknown) (unknown) (no (unknown) (unknown) Albumin/Globulin (units (unknown) date) Ratio unknown) (unknown) (no (unknown) (unknown) Alkaline (units (unkno wn) date) Phosphatase 100 unknown) (unknown) (no (unknown) (unknown) Alkaline (units (unkno wn) date) Phosphatase unknown) (unknown) (no (unknown) (unknown) Allergies (units (unkn own) date) unknown) (unknown) (no (unknown) (unknown) Allergy/AdvReac (units (unknown) date) Type Severity unknown) Reaction Status Date / Time (unknown) (no (unknown) (unknown) Antibiotics) (units (u nknown) date) unknown) (unknown) (no (unknown) (unknown) Antibody Screen (units (unknown) date) Negative 03/16/22 unknown) 12:38 (unknown) (no (unknown) (unknown) Assessment and (units (unknown) date) Plan narrative: unknown) (unknown) (no (unknown) (unknown) Assessment and (units (unknown) date) Plan unknown) (unknown) (no (unknown) (unknown) BUN 10 (units (unkno wn) date) unknown) (unknown) (no (unknown) (unknown) BUN (units (unkno wn) date) unknown) (unknown) (no (unknown) (unknown) BUN/Creatinine (units (unknown) date) Ratio 14.9 unknown) (unknown) (no (unknown) (unknown) BUN/Creatinine (units (unknown) date) Ratio unknown) (unknown) (no (unknown) (unknown) Baseline (units (unknown) date) heart rate: 130 unknown) (unknown) (no (unknown) (unknown) Baso # (Auto) 0 (units (unknown) date) unknown) (unknown) (no (unknown) (unknown) Baso # (Auto) (units ( unknown) date) unknown) (unknown) (no (unknown) (unknown) Baso % (Auto) (units ( unknown) date) 0.2 unknown) (unknown) (no (unknown) (unknown) Baso % (Auto) (units ( unknown) date) unknown) (unknown) (no (unknown) (unknown) Betamethasone at (units (unknown) date) 16:13. 20mg of IV unknown) Labetalol was given at 17:26. Blood (unknown) (no (unknown) (unknown) Blood Type O (units (u nknown) date) Positive 03/16/22 unknown) 12:38 (unknown) (no (unknown) (unknown) Breastfeed Preg (units (unknown) date) Comp Name unknown) (unknown) (no (unknown) (unknown) CV: RRR, no (units (un known) date) murmurs unknown) (unknown) (no (unknown) (unknown) Calcium 10.2 (units (u nknown) date) unknown) (unknown) (no (unknown) (unknown) Calcium (units (unkno wn) date) unknown) (unknown) (no (unknown) (unknown) Carbon Dioxide (units (unknown) date) 22 unknown) (unknown) (no (unknown) (unknown) Carbon Dioxide (units (unknown) date) unknown) (unknown) (no (unknown) (unknown) Chief complaint: (units (unknown) date) 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 (unknown) (no (unknown) (unknown) Chloride 105 (units (u nknown) date) unknown) (unknown) (no (unknown) (unknown) Chloride (units (unkno wn) date) unknown) (unknown) (no (unknown) (unknown) Chronic cough (units ( unknown) date) (-2000) unknown) (unknown) (no (unknown) (unknown) Creatinine 0.67 (units (unknown) date) unknown) (unknown) (no (unknown) (unknown) Creatinine (units (unk nown) date) unknown) (unknown) (no (unknown) (unknown) Current Estimate (units (unknown) date) 09/16/22 LMP unknown) (Certain) 33w 6d (unknown) (no (unknown) (unknown) : 1990 (units (unknown) date) Acct:[id number] unknown) (unknown) (no (unknown) (unknown) Date Patient (units (u nknown) date) Seen: 08/04/22 unknown) (unknown) (no (unknown) (unknown) Date of Service: (units (unknown) date) 08/04/22 unknown) (unknown) (no (unknown) (unknown) Date of (units (unkno wn) date) admission: unknown) 08/04/22 (unknown) (no (unknown) (unknown) Date/Time (units (unkn own) date) unknown) (unknown) (no (unknown) (unknown) Dating criteria (units (unknown) date) OB: LMP confirmed unknown) by 1st trimester US (unknown) (no (unknown) (unknown) Del. Date (units (unkn own) date) GA/Weeks Labor unknown) Lgth Wt Sex Route Outcome Anesthesia Place (unknown) (no (unknown) (unknown) Delivery Date: (units (unknown) date) 12/10/14 Last unknown) Updated by: Bianca Arenas R.N. (unknown) (no (unknown) (unknown) Delivery Date: (units (unknown) date) 01/06/11 Last unknown) Updated by: Bianca Arenas R.N. (unknown) (no (unknown) (unknown) Delv (units (unkno wn) date) unknown) (unknown) (no (unknown) (unknown) Depression (units (unk nown) date) unknown) (unknown) (no (unknown) (unknown) CLAU Calculator (units (unknown) date) unknown) (unknown) (no (unknown) (unknown) Eos # (Auto) 100 (units (unknown) date) unknown) (unknown) (no (unknown) (unknown) Eos # (Auto) (units (u nknown) date) unknown) (unknown) (no (unknown) (unknown) Eos % (Auto) 1.2 (units (unknown) date) L unknown) (unknown) (no (unknown) (unknown) Eos % (Auto) (units (u nknown) date) unknown) (unknown) (no (unknown) (unknown) Estimated (units (unkn own) date) Delivery Date unknown) Method Current (unknown) (no (unknown) (unknown) Estimated GFR > (units (unknown) date) 60 unknown) (unknown) (no (unknown) (unknown) Estimated GFR (units ( unknown) date) unknown) (unknown) (no (unknown) (unknown) Estimated (units (unkn own) date) Gestational Age unknown) (weeks): 33w6d (unknown) (no (unknown) (unknown) Evaluation (units (unk nown) date) unknown) (unknown) (no (unknown) (unknown) Exam Narrative: (units (unknown) date) unknown) (unknown) (no (unknown) (unknown) Ext: no edema (units ( unknown) date) unknown) (unknown) (no (unknown) (unknown) External Labs (units ( unknown) date) unknown) (unknown) (no (unknown) (unknown) Family History (units (unknown) date) (Reviewed unknown) 07/30/22 @ 11:31 by Karina Gaytan DO) (unknown) (no (unknown) (unknown) Monitor (units ( unknown) date) Decelerations: unknown) Absent (unknown) (no (unknown) (unknown) monitor (units ( unknown) date) accelerations: unknown) Present (unknown) (no (unknown) (unknown) Gen: NAD, (units (unkn own) date) sitting unknown) comfortably in bed, appears well (unknown) (no (unknown) (unknown) Genetic Screens: (units (unknown) date) Quad screen: unknown) Normal (unknown) (no (unknown) (unknown) Globulin 3.4 (units (u nknown) date) unknown) (unknown) (no (unknown) (unknown) Globulin (units (unkno wn) date) unknown) (unknown) (no (unknown) (unknown) Glucose 79 (units (unk nown) date) unknown) (unknown) (no (unknown) (unknown) Glucose (units (unkno wn) date) unknown) (unknown) (no (unknown) (unknown) Grandfather (units (un known) date) Hypertension unknown) (unknown) (no (unknown) (unknown) Grandmother Type (units (unknown) date) 2 diabetes unknown) mellitus (unknown) (no (unknown) (unknown) : 3 (units (unk nown) date) unknown) (unknown) (no (unknown) (unknown) Hct 27.1 L (units (unk nown) date) unknown) (unknown) (no (unknown) (unknown) Hct (units (unkno wn) date) unknown) (unknown) (no (unknown) (unknown) Hematocrit 27.1 (units (unknown) date) % (36-46) L unknown) 08/04/22 23:59 (unknown) (no (unknown) (unknown) Hemoglobin 9.6 (units (unknown) date) g/dL (12.0-16.0) unknown) L 08/04/22 23:59 (unknown) (no (unknown) (unknown) Hepatitis B (units (un known) date) Surface Antigen unknown) Negative s/c (NEGATIVE) 03/16/22 12 (unknown) (no (unknown) (unknown) Hepatitis C (units (un known) date) Antibody Negative unknown) s/c (NEGATIVE) 03/16/22 12:38 (unknown) (no (unknown) (unknown) Hgb 9.6 L (units (unkn own) date) unknown) (unknown) (no (unknown) (unknown) Hgb (units (unkno wn) date) unknown) (unknown) (no (unknown) (unknown) History of (units (unk nown) date) Present Condition unknown) (unknown) (no (unknown) (unknown) Home Medications (units (unknown) date) and Allergies unknown) (unknown) (no (unknown) (unknown) Home Medications (units (unknown) date) unknown) (unknown) (no (unknown) (unknown) Hypertension (units (u nknown) date) unknown) (unknown) (no (unknown) (unknown) IH 3 months (units (un known) date) unknown) (unknown) (no (unknown) (unknown) IH attempted (units (u nknown) date) unknown) (unknown) (no (unknown) (unknown) ITCHING (units (unkno wn) date) unknown) (unknown) (no (unknown) (unknown) [facility] (units (unknown) date) [address] unknown) [place] [address] (unknown) (no (unknown) (unknown) Labetalol BID. (units (unknown) date) She failed her unknown) glucola, and 3hr GTT on 07/30 was abnormal. She (unknown) (no (unknown) (unknown) Laboratory (units (unk nown) date) Results - last 24 unknown) hr (unknown) (no (unknown) (unknown) Labs (units (unkno wn) date) unknown) (unknown) (no (unknown) (unknown) Labs: (units (unkno wn) date) unknown) (unknown) (no (unknown) (unknown) Last OB Lab (units (un known) date) Results: unknown) (unknown) (no (unknown) (unknown) Lymph # (Auto) (units (unknown) date) 900 L unknown) (unknown) (no (unknown) (unknown) Lymph # (Auto) (units (unknown) date) unknown) (unknown) (no (unknown) (unknown) Lymph % (Auto) (units (unknown) date) 12.8 L unknown) (unknown) (no (unknown) (unknown) Lymph % (Auto) (units (unknown) date) unknown) (unknown) (no (unknown) (unknown) MCH 32.8 (units (unkno wn) date) unknown) (unknown) (no (unknown) (unknown) MCH (units (unkno wn) date) unknown) (unknown) (no (unknown) (unknown) MCHC 35.3 (units (unkn own) date) unknown) (unknown) (no (unknown) (unknown) MCHC (units (unkno wn) date) unknown) (unknown) (no (unknown) (unknown) MCV 92.7 (units (unkno wn) date) unknown) (unknown) (no (unknown) (unknown) MCV (units (unkno wn) date) unknown) (unknown) (no (unknown) (unknown) Medical History (units (unknown) date) (Reviewed unknown) 07/30/22 @ 11:31 by Karina Gaytan DO) (unknown) (no (unknown) (unknown) Medical (units (unkno wn) date) complications OB: unknown) cardiovascular (chronic hypertension) (unknown) (no (unknown) (unknown) Medication (units (unk nown) date) Instructions unknown) Recorded Confirmed Type (unknown) (no (unknown) (unknown) Meds (units (unkno wn) date) unknown) (unknown) (no (unknown) (unknown) [place] # (Auto) (units ( unknown) date) 600 unknown) (unknown) (no (unknown) (unknown) [place] # (Auto) (units ( unknown) date) unknown) (unknown) (no (unknown) (unknown) [place] % (Auto) (units ( unknown) date) 8.6 unknown) (unknown) (no (unknown) (unknown) [place] % (Auto) (units ( unknown) date) unknown) (unknown) (no (unknown) (unknown) Mother Age: 51 (units (unknown) date) Stroke unknown) (unknown) (no (unknown) (unknown) Narrative (units (unkn own) date) unknown) (unknown) (no (unknown) (unknown) Narrative: (units (unk nown) date) unknown) (unknown) (no (unknown) (unknown) Neuro: no (units (unkn own) date) clonus, patellar unknown) reflexes 1 (unknown) (no (unknown) (unknown) Neut # (Auto) (units ( unknown) date) 5500 unknown) (unknown) (no (unknown) (unknown) Neut # (Auto) (units ( unknown) date) unknown) (unknown) (no (unknown) (unknown) Neut % (Auto) (units ( unknown) date) 77.2 H unknown) (unknown) (no (unknown) (unknown) Neut % (Auto) (units ( unknown) date) unknown) (unknown) (no (unknown) (unknown) OB Exam (units (unkno wn) date) unknown) (unknown) (no (unknown) (unknown) OB HPI (units (unkno wn) date) unknown) (unknown) (no (unknown) (unknown) [employer] History + (units (unknown) date) Physical unknown) (unknown) (no (unknown) (unknown) Objective (units (unkn own) date) unknown) (unknown) (no (unknown) (unknown) Obstetrical (units (un known) date) complications: unknown) gestational diabetes and preeclampsia (unknown) (no (unknown) (unknown) PFSH (units (unkno wn) date) unknown) (unknown) (no (unknown) (unknown) PUPP (pruritic (units (unknown) date) urticarial unknown) papules and plaques of ) (unknown) (no (unknown) (unknown) PUPPPS rash (units (un known) date) unknown) (unknown) (no (unknown) (unknown) Para: 2 (units (unkno wn) date) unknown) (unknown) (no (unknown) (unknown) Past Pregnancies (units (unknown) date) unknown) (unknown) (no (unknown) (unknown) Patient: (units (unkno wn) date) Nydia Hagandi L unknown) MR#: [id number] (unknown) (no (unknown) (unknown) Plantar (units (unkno wn) date) fasciitis (-2016) unknown) (unknown) (no (unknown) (unknown) Plt Count 177 (units ( unknown) date) unknown) (unknown) (no (unknown) (unknown) Plt Count (units (unkn own) date) unknown) (unknown) (no (unknown) (unknown) Potassium 3.5 (units ( unknown) date) unknown) (unknown) (no (unknown) (unknown) Potassium (units (unkn own) date) unknown) (unknown) (no (unknown) (unknown) Preadmission (units (u nknown) date) Labs unknown) (unknown) (no (unknown) (unknown) care: (units (unknown) date) good care, unknown) initiated at week # (8), number of visits (8) and (unknown) (no (unknown) (unknown) Prior (units (unkno wn) date) (ies) unknown) (unknown) (no (unknown) (unknown) Protein/Creatini (units (unknown) date) n Ratio 0.36 unknown) (unknown) (no (unknown) (unknown) Protein/Creatini (units (unknown) date) n Ratio unknown) (unknown) (no (unknown) (unknown) Provider: (units (unkn own) date) Rabia Gooden MD unknown) (unknown) (no (unknown) (unknown) Psoriasis (units (unkn own) date) unknown) (unknown) (no (unknown) (unknown) Pt is a 32yo (units (u nknown) date) at 33w6d unknown) with complicated by GDM (recently (unknown) (no (unknown) (unknown) Pt is a 32yo (units (u nknown) date) at 33w6d, unknown) complicated by chronic HTN, GDM (unknown (unknown) (no (unknown) (unknown) RBC 2.92 L (units (unk nown) date) unknown) (unknown) (no (unknown) (unknown) RBC (units (unkno wn) date) unknown) (unknown) (no (unknown) (unknown) RDW 15.0 H (units (unk nown) date) unknown) (unknown) (no (unknown) (unknown) RDW (units (unkno wn) date) unknown) (unknown) (no (unknown) (unknown) Resp: clear to (units (unknown) date) auscultation unknown) bilaterally (unknown) (no (unknown) (unknown) Result Diagrams: (units (unknown) date) unknown) (unknown) (no (unknown) (unknown) Rubella Antibody (units (unknown) date) 7.3 IU/mL (>15) L unknown) 03/16/22 12:38 (unknown) (no (unknown) (unknown) SARS-CoV-2 (PCR) (units (unknown) date) Negative unknown) (unknown) (no (unknown) (unknown) SARS-CoV-2 (PCR) (units (unknown) date) unknown) (unknown) (no (unknown) (unknown) Signed By: (units (unk nown) date) unknown) (unknown) (no (unknown) (unknown) Smoking Status: (units (unknown) date) Never smoker unknown) (unknown) (no (unknown) (unknown) Social History (units (unknown) date) (Reviewed unknown) 07/30/22 @ 11:31 by Karina Gaytan DO) (unknown) (no (unknown) (unknown) Sodium 137 (units (unk nown) date) unknown) (unknown) (no (unknown) (unknown) Sodium (units (unkno wn) date) unknown) (unknown) (no (unknown) (unknown) Status post (units (un known) date) appendectomy unknown) () (unknown) (no (unknown) (unknown) Status post (units (un known) date) delivery unknown) (01/06/11) (unknown) (no (unknown) (unknown) Status post (units (un known) date) delivery unknown) (unknown) (no (unknown) (unknown) Sulfa (units (unkno wn) date) (Sulfonamide unknown) Allergy Mild RASH Verified 07/15/22 09:55 (unknown) (no (unknown) (unknown) Surgical History (units (unknown) date) (Reviewed unknown) 07/30/22 @ 11:31 by Karina Gaytan DO) (unknown) (no (unknown) (unknown) The pts BPs then (units (unknown) date) spiked to 164/88 unknown) with repeat of 166/98. 20mg IV Latetalol was (unknown) (no (unknown) (unknown) The pts (units (unkno wn) date) was unknown) complicated by chronic hypertension, currently on 400mg (unknown) (no (unknown) (unknown) Time Patient (units (u nknown) date) Seen: 18:02 unknown) (unknown) (no (unknown) (unknown) Total Bilirubin (units (unknown) date) 0.4 unknown) (unknown) (no (unknown) (unknown) Total Bilirubin (units (unknown) date) unknown) (unknown) (no (unknown) (unknown) Total Protein (units ( unknown) date) 6.9 unknown) (unknown) (no (unknown) (unknown) Total Protein (units ( unknown) date) unknown) (unknown) (no (unknown) (unknown) Type(s) of (units (unk nown) date) exercise: none unknown) (unknown) (no (unknown) (unknown) U Random Total (units (unknown) date) Protein 18 H unknown) (unknown) (no (unknown) (unknown) U Random Total (units (unknown) date) Protein unknown) (unknown) (no (unknown) (unknown) Ultrasounds: (units (u nknown) date) normal 1st unknown) trimester US and normal mid trimester US (unknown) (no (unknown) (unknown) [facility] (units ( unknown) date) [place] was unknown) contacted for transfer due to prematurity. (unknown) (no (unknown) (unknown) Unknown (units (unkno wn) date) unknown) (unknown) (no (unknown) (unknown) Uric Acid 6.2 (units ( unknown) date) unknown) (unknown) (no (unknown) (unknown) Uric Acid (units (unkn own) date) unknown) (unknown) (no (unknown) (unknown) Urine Creatinine (units (unknown) date) 48.8 unknown) (unknown) (no (unknown) (unknown) Urine Creatinine (units (unknown) date) unknown) (unknown) (no (unknown) (unknown) Variability: (units (u nknown) date) Moderate (11-25) unknown) (unknown) (no (unknown) (unknown) Varicella-Zoster (units (unknown) date) IgG Antibody 339 unknown) index (Immune >165) 03/16/22 (unknown) (no (unknown) (unknown) WBC 7.1 (units (unkno wn) date) unknown) (unknown) (no (unknown) (unknown) WBC (units (unkno wn) date) unknown) (unknown) (no (unknown) (unknown) WG (units (unkno wn) date) unknown) (unknown) (no (unknown) (unknown) [Embedded Image (units (unknown) date) Not Available] unknown) (unknown) (no (unknown) (unknown) alcohol intake: (units (unknown) date) former unknown) (unknown) (no (unknown) (unknown) amoxicillin (units (un known) date) Allergy Mild Rash unknown) Verified 07/15/22 09:55 (unknown) (no (unknown) (unknown) azithromycin (units (u nknown) date) Allergy Mild RASH unknown) AND Verified 07/15/22 09:55 (unknown) (no (unknown) (unknown) caffeine: Yes (units ( unknown) date) unknown) (unknown) (no (unknown) (unknown) carbon monox (units (u nknown) date) detector in home: unknown) Yes (unknown) (no (unknown) (unknown) chlorhexidine (units ( unknown) date) AdvReac unknown) Intermediate Blister Verified 07/15/22 09:55 (unknown) (no (unknown) (unknown) clobetasol 0.05 (units (unknown) date) % topical unknown) ointment 1 applic topical BID #45 grams 07/01/22 (unknown) (no (unknown) (unknown) control), and hx (units (unknown) date) of prior unknown) , who presented for NST for cHTN, now found (unknown) (no (unknown) (unknown) current (units (unkno wn) date) occupational unknown) exposures/hazards : No (unknown) (no (unknown) (unknown) daily servings (units (unknown) date) fruits/ve-1 unknown) (unknown) (no (unknown) (unknown) diagnosed, (units (unk nown) date) unknown control) unknown) and chronic HTN who presented for NST for cHTN. 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 The pt (units ( unknown) date) continues to deny unknown) any symptoms. (unknown) (no (unknown) (unknown) had not yet (units (un known) date) started checking unknown) her blood sugars at home. (unknown) (no (unknown) (unknown) headache. She (units ( unknown) date) was given one PO unknown) dose of Nifedipine 30mg XR. Lab work returned (unknown) (no (unknown) (unknown) household (units (unkn own) date) members: unknown) significant other and children (unknown) (no (unknown) (unknown) housing: (units (unkno wn) date) apartment unknown) (unknown) (no (unknown) (unknown) hyperemesis 1st (units (unknown) date) trimester unknown) (unknown) (no (unknown) (unknown) labetalol 100 mg (units (unknown) date) tablet 400 mg PO unknown) BID #[id number] tabs 08/04/22 07/15/22 Rx (unknown) (no (unknown) (unknown) latex AdvReac (units ( unknown) date) Mild ITCHING unknown) Verified 07/15/22 09:55 (unknown) (no (unknown) (unknown) lives (units (unkno wn) date) independently: unknown) Yes (unknown) (no (unknown) (unknown) marital status: (units (unknown) date) unmarried,living unknown) together (unknown) (no (unknown) (unknown) nifedipine 30 mg (units (unknown) date) tablet,extended unknown) 30 mg PO DAILY #30 tabs 08/04/22 Rx (unknown) (no (unknown) (unknown) number of (units (unkn own) date) children: 2 unknown) (unknown) (no (unknown) (unknown) occupational (units (u nknown) date) status: employed unknown) (unknown) (no (unknown) (unknown) other Camron (units (un known) date) unknown) (unknown) (no (unknown) (unknown) other Jeaneth (units (un known) date) unknown) (unknown) (no (unknown) (unknown) pets and (units (unkno wn) date) animals: Yes (1 unknown) cat (pt is not managing litter box)) (unknown) (no (unknown) (unknown) pounds weight (units ( unknown) date) gain (10) unknown) (unknown) (no (unknown) (unknown) prenat.vits,miguel, (units (unknown) date) let-pueu-bovzr 1 unknown) tab PO DAILY 01/27/22 07/15/22 History (unknown) (no (unknown) (unknown) pressures (units (unkn own) date) initially unknown) improved with this, but now rising again. Dr Avila at the (unknown) (no (unknown) (unknown) release 24 hr (units ( unknown) date) unknown) (unknown) (no (unknown) (unknown) reports being (units ( unknown) date) asymptomatic unknown) without swelling, RUQ pain, vision changes, or (unknown) (no (unknown) (unknown) seatbelt use: (units ( unknown) date) always unknown) (unknown) (no (unknown) (unknown) second hand (units (un known) date) exposure: No unknown) (unknown) (no (unknown) (unknown) special fly (units ( unknown) date) needs: No unknown) (unknown) (no (unknown) (unknown) substance use (units ( unknown) date) type: marijuana unknown) (unknown) (no (unknown) (unknown) to have (units (unkno wn) date) pre-eclampsia unknown) with severe features. Pt received her first dose of (unknown) (no (unknown) (unknown) was reassuring, (units (unknown) date) however pts BPs unknown) were elevated to the 140-150s/80-90s. The pt (unknown) (no (unknown) (unknown) water heater (units (u nknown) date) temp set < 120 unknown) deg: Yes (Will check and adjust if needed) (unknown) (no (unknown) (unknown) well-balanced (units ( unknown) date) diet: about half unknown) the time (unknown) (no (unknown) (unknown) without evidence (units (unknown) date) of HELLP, however unknown) did have elevated protein/creatinin e ratio. (unknown) (no (unknown) (unknown) working smoke (units ( unknown) date) detector in home: unknown) Yes Result panel 15 (unknown) (no (unknown) (unknown) (no value) (units (unk nown) date) unknown) (unknown) (no (unknown) (unknown) -: Urine: (units (unkn own) date) positive (E coli) unknown) (unknown) (no (unknown) (unknown) [id number] (units (unkno wn) date) unknown) (unknown) (no (unknown) (unknown) 12/10/14 39 8 lb (units (unknown) date) 3 oz Female unknown) live - full term (unknown) (no (unknown) (unknown) 01/06/11 41 1 9 (units (unknown) date) lb 1 oz Male unknown) live - full term (unknown) (no (unknown) (unknown) 07/15/22 Rx (units (un known) date) unknown) (unknown) (no (unknown) (unknown) 08/04/22 (units (unkno wn) date) 08/04/22 08/04/22 unknown) (unknown) (no (unknown) (unknown) 08/04/22 Unknown (units (unknown) date) unknown) (unknown) (no (unknown) (unknown) 08/04/22 (units (unkno wn) date) unknown) (unknown) (no (unknown) (unknown) 12:38 (units (unkno wn) date) unknown) (unknown) (no (unknown) (unknown) 13:55 17:38 (units (un known) date) Unknown unknown) (unknown) (no (unknown) (unknown) :38 (units (unkno wn) date) unknown) (unknown) (no (unknown) (unknown) ALT 25 (units (unkno wn) date) unknown) (unknown) (no (unknown) (unknown) ALT (units (unkno wn) date) unknown) (unknown) (no (unknown) (unknown) AST 31 (units (unkno wn) date) unknown) (unknown) (no (unknown) (unknown) AST (units (unkno wn) date) unknown) (unknown) (no (unknown) (unknown) Abd: soft, (units (unk nown) date) nontender, gravid unknown) (unknown) (no (unknown) (unknown) Age/Sex: 32 / F (units (unknown) date) unknown) (unknown) (no (unknown) (unknown) Albumin 3.5 (units (un known) date) unknown) (unknown) (no (unknown) (unknown) Albumin (units (unkno wn) date) unknown) (unknown) (no (unknown) (unknown) Albumin/Globulin (units (unknown) date) Ratio 1.0 unknown) (unknown) (no (unknown) (unknown) Albumin/Globulin (units (unknown) date) Ratio unknown) (unknown) (no (unknown) (unknown) Alkaline (units (unkno wn) date) Phosphatase 100 unknown) (unknown) (no (unknown) (unknown) Alkaline (units (unkno wn) date) Phosphatase unknown) (unknown) (no (unknown) (unknown) Allergies (units (unkn own) date) unknown) (unknown) (no (unknown) (unknown) Allergy/AdvReac (units (unknown) date) Type Severity unknown) Reaction Status Date / Time (unknown) (no (unknown) (unknown) Antibiotics) (units (u nknown) date) unknown) (unknown) (no (unknown) (unknown) Antibody Screen (units (unknown) date) Negative 03/16/22 unknown) 12:38 (unknown) (no (unknown) (unknown) Assessment and (units (unknown) date) Plan narrative: unknown) (unknown) (no (unknown) (unknown) Assessment and (units (unknown) date) Plan unknown) (unknown) (no (unknown) (unknown) BUN 10 (units (unkno wn) date) unknown) (unknown) (no (unknown) (unknown) BUN (units (unkno wn) date) unknown) (unknown) (no (unknown) (unknown) BUN/Creatinine (units (unknown) date) Ratio 14.9 unknown) (unknown) (no (unknown) (unknown) BUN/Creatinine (units (unknown) date) Ratio unknown) (unknown) (no (unknown) (unknown) Baseline (units (unknown) date) heart rate: 130 unknown) (unknown) (no (unknown) (unknown) Baso # (Auto) 0 (units (unknown) date) unknown) (unknown) (no (unknown) (unknown) Baso # (Auto) (units ( unknown) date) unknown) (unknown) (no (unknown) (unknown) Baso % (Auto) (units ( unknown) date) 0.2 unknown) (unknown) (no (unknown) (unknown) Baso % (Auto) (units ( unknown) date) unknown) (unknown) (no (unknown) (unknown) Betamethasone at (units (unknown) date) 16:13. 20mg of IV unknown) Labetalol was given at 17:26. Blood (unknown) (no (unknown) (unknown) Blood Type O (units (u nknown) date) Positive 03/16/22 unknown) 12:38 (unknown) (no (unknown) (unknown) Breastfeed Preg (units (unknown) date) Comp Name unknown) (unknown) (no (unknown) (unknown) CV: RRR, no (units (un known) date) murmurs unknown) (unknown) (no (unknown) (unknown) Calcium 10.2 (units (u nknown) date) unknown) (unknown) (no (unknown) (unknown) Calcium (units (unkno wn) date) unknown) (unknown) (no (unknown) (unknown) Carbon Dioxide (units (unknown) date) 22 unknown) (unknown) (no (unknown) (unknown) Carbon Dioxide (units (unknown) date) unknown) (unknown) (no (unknown) (unknown) Chief complaint: (units (unknown) date) 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 (unknown) (no (unknown) (unknown) Chloride 105 (units (u nknown) date) unknown) (unknown) (no (unknown) (unknown) Chloride (units (unkno wn) date) unknown) (unknown) (no (unknown) (unknown) Chronic cough (units ( unknown) date) (-2000) unknown) (unknown) (no (unknown) (unknown) Creatinine 0.67 (units (unknown) date) unknown) (unknown) (no (unknown) (unknown) Creatinine (units (unk nown) date) unknown) (unknown) (no (unknown) (unknown) Current Estimate (units (unknown) date) 09/16/22 LMP unknown) (Certain) 33w 6d (unknown) (no (unknown) (unknown) : 1990 (units (unknown) date) Acct:[id number] unknown) (unknown) (no (unknown) (unknown) Date Patient (units (u nknown) date) Seen: 08/04/22 unknown) (unknown) (no (unknown) (unknown) Date of Service: (units (unknown) date) 08/04/22 unknown) (unknown) (no (unknown) (unknown) Date of (units (unkno wn) date) admission: unknown) 08/04/22 (unknown) (no (unknown) (unknown) Date/Time (units (unkn own) date) unknown) (unknown) (no (unknown) (unknown) Dating criteria (units (unknown) date) OB: LMP confirmed unknown) by 1st trimester US (unknown) (no (unknown) (unknown) Del. Date (units (unkn own) date) GA/Weeks Labor unknown) Lgth Wt Sex Route Outcome Anesthesia Place (unknown) (no (unknown) (unknown) Delivery Date: (units (unknown) date) 12/10/14 Last unknown) Updated by: Bianca Arenas R.N. (unknown) (no (unknown) (unknown) Delivery Date: (units (unknown) date) 01/06/11 Last unknown) Updated by: Bianca Arenas R.N. (unknown) (no (unknown) (unknown) Delv (units (unkno wn) date) unknown) (unknown) (no (unknown) (unknown) Depression (units (unk nown) date) unknown) (unknown) (no (unknown) (unknown) CLAU Calculator (units (unknown) date) unknown) (unknown) (no (unknown) (unknown) Eos # (Auto) 100 (units (unknown) date) unknown) (unknown) (no (unknown) (unknown) Eos # (Auto) (units (u nknown) date) unknown) (unknown) (no (unknown) (unknown) Eos % (Auto) 1.2 (units (unknown) date) L unknown) (unknown) (no (unknown) (unknown) Eos % (Auto) (units (u nknown) date) unknown) (unknown) (no (unknown) (unknown) Estimated (units (unkn own) date) Delivery Date unknown) Method Current (unknown) (no (unknown) (unknown) Estimated GFR > (units (unknown) date) 60 unknown) (unknown) (no (unknown) (unknown) Estimated GFR (units ( unknown) date) unknown) (unknown) (no (unknown) (unknown) Estimated (units (unkn own) date) Gestational Age unknown) (weeks): 33w6d (unknown) (no (unknown) (unknown) Evaluation (units (unk nown) date) unknown) (unknown) (no (unknown) (unknown) Exam Narrative: (units (unknown) date) unknown) (unknown) (no (unknown) (unknown) Ext: no edema (units ( unknown) date) unknown) (unknown) (no (unknown) (unknown) External Labs (units ( unknown) date) unknown) (unknown) (no (unknown) (unknown) Family History (units (unknown) date) (Reviewed unknown) 07/30/22 @ 11:31 by Karina Gaytan DO) (unknown) (no (unknown) (unknown) Monitor (units ( unknown) date) Decelerations: unknown) Absent (unknown) (no (unknown) (unknown) monitor (units ( unknown) date) accelerations: unknown) Present (unknown) (no (unknown) (unknown) Gen: NAD, (units (unkn own) date) sitting unknown) comfortably in bed, appears well (unknown) (no (unknown) (unknown) Genetic Screens: (units (unknown) date) Quad screen: unknown) Normal (unknown) (no (unknown) (unknown) Globulin 3.4 (units (u nknown) date) unknown) (unknown) (no (unknown) (unknown) Globulin (units (unkno wn) date) unknown) (unknown) (no (unknown) (unknown) Glucose 79 (units (unk nown) date) unknown) (unknown) (no (unknown) (unknown) Glucose (units (unkno wn) date) unknown) (unknown) (no (unknown) (unknown) Grandfather (units (un known) date) Hypertension unknown) (unknown) (no (unknown) (unknown) Grandmother Type (units (unknown) date) 2 diabetes unknown) mellitus (unknown) (no (unknown) (unknown) : 3 (units (unk nown) date) unknown) (unknown) (no (unknown) (unknown) Hct 27.1 L (units (unk nown) date) unknown) (unknown) (no (unknown) (unknown) Hct (units (unkno wn) date) unknown) (unknown) (no (unknown) (unknown) Hematocrit 27.1 (units (unknown) date) % (36-46) L unknown) 08/04/22 23:59 (unknown) (no (unknown) (unknown) Hemoglobin 9.6 (units (unknown) date) g/dL (12.0-16.0) unknown) L 08/04/22 23:59 (unknown) (no (unknown) (unknown) Hepatitis B (units (un known) date) Surface Antigen unknown) Negative s/c (NEGATIVE) 03/16/22 12 (unknown) (no (unknown) (unknown) Hepatitis C (units (un known) date) Antibody Negative unknown) s/c (NEGATIVE) 03/16/22 12:38 (unknown) (no (unknown) (unknown) Hgb 9.6 L (units (unkn own) date) unknown) (unknown) (no (unknown) (unknown) Hgb (units (unkno wn) date) unknown) (unknown) (no (unknown) (unknown) History of (units (unk nown) date) Present Condition unknown) (unknown) (no (unknown) (unknown) Home Medications (units (unknown) date) and Allergies unknown) (unknown) (no (unknown) (unknown) Home Medications (units (unknown) date) unknown) (unknown) (no (unknown) (unknown) Hypertension (units (u nknown) date) unknown) (unknown) (no (unknown) (unknown) IH 3 months (units (un known) date) unknown) (unknown) (no (unknown) (unknown) IH attempted (units (u nknown) date) unknown) (unknown) (no (unknown) (unknown) ITCHING (units (unkno wn) date) unknown) (unknown) (no (unknown) (unknown) [facility] (units (unknown) date) [address] unknown) [place] [address] (unknown) (no (unknown) (unknown) Labetalol BID. (units (unknown) date) She failed her unknown) glucola, and 3hr GTT on 07/30 was abnormal. She (unknown) (no (unknown) (unknown) Laboratory (units (unk nown) date) Results - last 24 unknown) hr (unknown) (no (unknown) (unknown) Labs (units (unkno wn) date) unknown) (unknown) (no (unknown) (unknown) Labs: (units (unkno wn) date) unknown) (unknown) (no (unknown) (unknown) Last OB Lab (units (un known) date) Results: unknown) (unknown) (no (unknown) (unknown) Lymph # (Auto) (units (unknown) date) 900 L unknown) (unknown) (no (unknown) (unknown) Lymph # (Auto) (units (unknown) date) unknown) (unknown) (no (unknown) (unknown) Lymph % (Auto) (units (unknown) date) 12.8 L unknown) (unknown) (no (unknown) (unknown) Lymph % (Auto) (units (unknown) date) unknown) (unknown) (no (unknown) (unknown) MCH 32.8 (units (unkno wn) date) unknown) (unknown) (no (unknown) (unknown) MCH (units (unkno wn) date) unknown) (unknown) (no (unknown) (unknown) MCHC 35.3 (units (unkn own) date) unknown) (unknown) (no (unknown) (unknown) MCHC (units (unkno wn) date) unknown) (unknown) (no (unknown) (unknown) MCV 92.7 (units (unkno wn) date) unknown) (unknown) (no (unknown) (unknown) MCV (units (unkno wn) date) unknown) (unknown) (no (unknown) (unknown) Medical History (units (unknown) date) (Reviewed unknown) 07/30/22 @ 11:31 by Karina Gaytan DO) (unknown) (no (unknown) (unknown) Medical (units (unkno wn) date) complications OB: unknown) cardiovascular (chronic hypertension) (unknown) (no (unknown) (unknown) Medication (units (unk nown) date) Instructions unknown) Recorded Confirmed Type (unknown) (no (unknown) (unknown) Meds (units (unkno wn) date) unknown) (unknown) (no (unknown) (unknown) [place] # (Auto) (units ( unknown) date) 600 unknown) (unknown) (no (unknown) (unknown) [place] # (Auto) (units ( unknown) date) unknown) (unknown) (no (unknown) (unknown) [place] % (Auto) (units ( unknown) date) 8.6 unknown) (unknown) (no (unknown) (unknown) [place] % (Auto) (units ( unknown) date) unknown) (unknown) (no (unknown) (unknown) Mother Age: 51 (units (unknown) date) Stroke unknown) (unknown) (no (unknown) (unknown) Narrative (units (unkn own) date) unknown) (unknown) (no (unknown) (unknown) Narrative: (units (unk nown) date) unknown) (unknown) (no (unknown) (unknown) Neuro: no (units (unkn own) date) clonus, patellar unknown) reflexes 1 (unknown) (no (unknown) (unknown) Neut # (Auto) (units ( unknown) date) 5500 unknown) (unknown) (no (unknown) (unknown) Neut # (Auto) (units ( unknown) date) unknown) (unknown) (no (unknown) (unknown) Neut % (Auto) (units ( unknown) date) 77.2 H unknown) (unknown) (no (unknown) (unknown) Neut % (Auto) (units ( unknown) date) unknown) (unknown) (no (unknown) (unknown) OB Exam (units (unkno wn) date) unknown) (unknown) (no (unknown) (unknown) OB HPI (units (unkno wn) date) unknown) (unknown) (no (unknown) (unknown) [employer] History + (units (unknown) date) Physical unknown) (unknown) (no (unknown) (unknown) Objective (units (unkn own) date) unknown) (unknown) (no (unknown) (unknown) Obstetrical (units (un known) date) complications: unknown) gestational diabetes and preeclampsia (unknown) (no (unknown) (unknown) PFSH (units (unkno wn) date) unknown) (unknown) (no (unknown) (unknown) PO Labetalol (units (u nknown) date) 'bolus' to help unknown) maintain BPs in lower range. (unknown) (no (unknown) (unknown) PUPP (pruritic (units (unknown) date) urticarial unknown) papules and plaques of ) (unknown) (no (unknown) (unknown) PUPPPS rash (units (un known) date) unknown) (unknown) (no (unknown) (unknown) Para: 2 (units (unkno wn) date) unknown) (unknown) (no (unknown) (unknown) Past Pregnancies (units (unknown) date) unknown) (unknown) (no (unknown) (unknown) Patient: (units (unkno wn) date) Ga Hagan L unknown) MR#: [id number] (unknown) (no (unknown) (unknown) Plantar (units (unkno wn) date) fasciitis (-2016) unknown) (unknown) (no (unknown) (unknown) Plt Count 177 (units ( unknown) date) unknown) (unknown) (no (unknown) (unknown) Plt Count (units (unkn own) date) unknown) (unknown) (no (unknown) (unknown) Potassium 3.5 (units ( unknown) date) unknown) (unknown) (no (unknown) (unknown) Potassium (units (unkn own) date) unknown) (unknown) (no (unknown) (unknown) Preadmission (units (u nknown) date) Labs unknown) (unknown) (no (unknown) (unknown) care: (units (unknown) date) good care, unknown) initiated at week # (8), number of visits (8) and (unknown) (no (unknown) (unknown) Prior (units (unkno wn) date) (ies) unknown) (unknown) (no (unknown) (unknown) Protein/Creatini (units (unknown) date) n Ratio 0.36 unknown) (unknown) (no (unknown) (unknown) Protein/Creatini (units (unknown) date) n Ratio unknown) (unknown) (no (unknown) (unknown) Provider: (units (unkn own) date) Rabia Gooden MD unknown) (unknown) (no (unknown) (unknown) Psoriasis (units (unkn own) date) unknown) (unknown) (no (unknown) (unknown) Pt is a 32yo (units (u nknown) date) at 33w6d unknown) with complicated by GDM (recently (unknown) (no (unknown) (unknown) Pt is a 32yo (units (u nknown) date) at 33w6d, unknown) complicated by chronic HTN, GDM (unknown (unknown) (no (unknown) (unknown) RBC 2.92 L (units (unk nown) date) unknown) (unknown) (no (unknown) (unknown) RBC (units (unkno wn) date) unknown) (unknown) (no (unknown) (unknown) RDW 15.0 H (units (unk nown) date) unknown) (unknown) (no (unknown) (unknown) RDW (units (unkno wn) date) unknown) (unknown) (no (unknown) (unknown) Resp: clear to (units (unknown) date) auscultation unknown) bilaterally (unknown) (no (unknown) (unknown) Result Diagrams: (units (unknown) date) unknown) (unknown) (no (unknown) (unknown) Rubella Antibody (units (unknown) date) 7.3 IU/mL (>15) L unknown) 03/16/22 12:38 (unknown) (no (unknown) (unknown) SARS-CoV-2 (PCR) (units (unknown) date) Negative unknown) (unknown) (no (unknown) (unknown) SARS-CoV-2 (PCR) (units (unknown) date) unknown) (unknown) (no (unknown) (unknown) Signed By: (units (unk nown) date) unknown) (unknown) (no (unknown) (unknown) Smoking Status: (units (unknown) date) Never smoker unknown) (unknown) (no (unknown) (unknown) Social History (units (unknown) date) (Reviewed unknown) 07/30/22 @ 11:31 by Karina Gaytan DO) (unknown) (no (unknown) (unknown) Sodium 137 (units (unk nown) date) unknown) (unknown) (no (unknown) (unknown) Sodium (units (unkno wn) date) unknown) (unknown) (no (unknown) (unknown) Status post (units (un known) date) appendectomy unknown) () (unknown) (no (unknown) (unknown) Status post (units (un known) date) delivery unknown) (01/06/11) (unknown) (no (unknown) (unknown) Status post (units (un known) date) delivery unknown) (unknown) (no (unknown) (unknown) Sulfa (units (unkno wn) date) (Sulfonamide unknown) Allergy Mild RASH Verified 07/15/22 09:55 (unknown) (no (unknown) (unknown) Surgical History (units (unknown) date) (Reviewed unknown) 07/30/22 @ 11:31 by Karina Gaytan DO) (unknown) (no (unknown) (unknown) The pts BPs then (units (unknown) date) spiked to 164/88 unknown) with repeat of 166/98. 20mg IV Latetalol was (unknown) (no (unknown) (unknown) The pts (units (unkno wn) date) was unknown) complicated by chronic hypertension, currently on 400mg (unknown) (no (unknown) (unknown) Time Patient (units (u nknown) date) Seen: 18:02 unknown) (unknown) (no (unknown) (unknown) Total Bilirubin (units (unknown) date) 0.4 unknown) (unknown) (no (unknown) (unknown) Total Bilirubin (units (unknown) date) unknown) (unknown) (no (unknown) (unknown) Total Protein (units ( unknown) date) 6.9 unknown) (unknown) (no (unknown) (unknown) Total Protein (units ( unknown) date) unknown) (unknown) (no (unknown) (unknown) Type(s) of (units (unk nown) date) exercise: none unknown) (unknown) (no (unknown) (unknown) U Random Total (units (unknown) date) Protein 18 H unknown) (unknown) (no (unknown) (unknown) U Random Total (units (unknown) date) Protein unknown) (unknown) (no (unknown) (unknown) Ultrasounds: (units (u nknown) date) normal 1st unknown) trimester US and normal mid trimester US (unknown) (no (unknown) (unknown) [facility] (units ( unknown) date) [place] was unknown) contacted for transfer due to prematurity. MgSO4 (unknown) (no (unknown) (unknown) Unknown (units (unkno wn) date) unknown) (unknown) (no (unknown) (unknown) Uric Acid 6.2 (units ( unknown) date) unknown) (unknown) (no (unknown) (unknown) Uric Acid (units (unkn own) date) unknown) (unknown) (no (unknown) (unknown) Urine Creatinine (units (unknown) date) 48.8 unknown) (unknown) (no (unknown) (unknown) Urine Creatinine (units (unknown) date) unknown) (unknown) (no (unknown) (unknown) Variability: (units (u nknown) date) Moderate (11-25) unknown) (unknown) (no (unknown) (unknown) Varicella-Zoster (units (unknown) date) IgG Antibody 339 unknown) index (Immune >165) 03/16/22 (unknown) (no (unknown) (unknown) WBC 7.1 (units (unkno wn) date) unknown) (unknown) (no (unknown) (unknown) WBC (units (unkno wn) date) unknown) (unknown) (no (unknown) (unknown) WG (units (unkno wn) date) unknown) (unknown) (no (unknown) (unknown) [Embedded Image (units (unknown) date) Not Available] unknown) (unknown) (no (unknown) (unknown) alcohol intake: (units (unknown) date) former unknown) (unknown) (no (unknown) (unknown) amoxicillin (units (un known) date) Allergy Mild Rash unknown) Verified 07/15/22 09:55 (unknown) (no (unknown) (unknown) azithromycin (units (u nknown) date) Allergy Mild RASH unknown) AND Verified 07/15/22 09:55 (unknown) (no (unknown) (unknown) caffeine: Yes (units ( unknown) date) unknown) (unknown) (no (unknown) (unknown) carbon monox (units (u nknown) date) detector in home: unknown) Yes (unknown) (no (unknown) (unknown) chlorhexidine (units ( unknown) date) AdvReac unknown) Intermediate Blister Verified 07/15/22 09:55 (unknown) (no (unknown) (unknown) clobetasol 0.05 (units (unknown) date) % topical unknown) ointment 1 applic topical BID #45 grams 07/01/22 (unknown) (no (unknown) (unknown) control), and hx (units (unknown) date) of prior unknown) , who presented for NST for cHTN, now found (unknown) (no (unknown) (unknown) current (units (unkno wn) date) occupational unknown) exposures/hazards : No (unknown) (no (unknown) (unknown) daily servings (units (unknown) date) fruits/ve-1 unknown) (unknown) (no (unknown) (unknown) diagnosed, (units (unk nown) date) unknown control) unknown) and chronic HTN who presented for NST for cHTN. 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 The pt (units ( unknown) date) continues to deny unknown) any symptoms. (unknown) (no (unknown) (unknown) had not yet (units (un known) date) started checking unknown) her blood sugars at home. (unknown) (no (unknown) (unknown) headache. She (units ( unknown) date) was given one PO unknown) dose of Nifedipine 30mg XR. Lab work returned (unknown) (no (unknown) (unknown) household (units (unkn own) date) members: unknown) significant other and children (unknown) (no (unknown) (unknown) housing: (units (unkno wn) date) apartment unknown) (unknown) (no (unknown) (unknown) hyperemesis 1st (units (unknown) date) trimester unknown) (unknown) (no (unknown) (unknown) labetalol 100 mg (units (unknown) date) tablet 400 mg PO unknown) BID #[id number] tabs 08/04/22 07/15/22 Rx (unknown) (no (unknown) (unknown) latex AdvReac (units ( unknown) date) Mild ITCHING unknown) Verified 07/15/22 09:55 (unknown) (no (unknown) (unknown) lives (units (unkno wn) date) independently: unknown) Yes (unknown) (no (unknown) (unknown) marital status: (units (unknown) date) unmarried,living unknown) together (unknown) (no (unknown) (unknown) nifedipine 30 mg (units (unknown) date) tablet,extended unknown) 30 mg PO DAILY #30 tabs 08/04/22 Rx (unknown) (no (unknown) (unknown) number of (units (unkn own) date) children: 2 unknown) (unknown) (no (unknown) (unknown) occupational (units (u nknown) date) status: employed unknown) (unknown) (no (unknown) (unknown) other Camron (units (un known) date) unknown) (unknown) (no (unknown) (unknown) other Jeaneth (units (un known) date) unknown) (unknown) (no (unknown) (unknown) pets and (units (unkno wn) date) animals: Yes (1 unknown) cat (pt is not managing litter box)) (unknown) (no (unknown) (unknown) pounds weight (units ( unknown) date) gain (10) unknown) (unknown) (no (unknown) (unknown) prenat.vits,miguel, (units (unknown) date) [id number] 1 unknown) tab PO DAILY 01/27/22 07/15/22 History (unknown) (no (unknown) (unknown) pressures (units (unkn own) date) initially unknown) improved with this, but now rising again. Dr Avila at the (unknown) (no (unknown) (unknown) release 24 hr (units ( unknown) date) unknown) (unknown) (no (unknown) (unknown) reports being (units ( unknown) date) asymptomatic unknown) without swelling, RUQ pain, vision changes, or (unknown) (no (unknown) (unknown) seatbelt use: (units ( unknown) date) always unknown) (unknown) (no (unknown) (unknown) second hand (units (un known) date) exposure: No unknown) (unknown) (no (unknown) (unknown) special fly (units ( unknown) date) needs: No unknown) (unknown) (no (unknown) (unknown) substance use (units ( unknown) date) type: marijuana unknown) (unknown) (no (unknown) (unknown) to be initiated, (units (unknown) date) will give 4g unknown) bolus followed by 2g/hr. Also recommended 600mg (unknown) (no (unknown) (unknown) to have (units (unkno wn) date) pre-eclampsia unknown) with severe features. Pt received her first dose of (unknown) (no (unknown) (unknown) was reassuring, (units (unknown) date) however pts BPs unknown) were elevated to the 140-150s/80-90s. The pt (unknown) (no (unknown) (unknown) water heater (units (u nknown) date) temp set < 120 unknown) deg: Yes (Will check and adjust if needed) (unknown) (no (unknown) (unknown) well-balanced (units ( unknown) date) diet: about half unknown) the time (unknown) (no (unknown) (unknown) without evidence (units (unknown) date) of HELLP, however unknown) did have elevated protein/creatinin e ratio. (unknown) (no (unknown) (unknown) working smoke (units ( unknown) date) detector in home: unknown) Yes Result panel 16 (unknown) (no (unknown) (unknown) (no value) (units (unk nown) date) unknown) (unknown) (no (unknown) (unknown) (baseline 24hr (units (unknown) date) protein 112). The unknown) pts BPs then spiked to 164/88 with repeat of (unknown) (no (unknown) (unknown) -: Urine: (units (unkn own) date) positive (E coli) unknown) (unknown) (no (unknown) (unknown) [id number] (units (unkno wn) date) unknown) (unknown) (no (unknown) (unknown) 12/10/14 39 8 lb (units (unknown) date) 3 oz Female unknown) live - full term (unknown) (no (unknown) (unknown) 01/06/11 41 1 9 (units (unknown) date) lb 1 oz Male unknown) live - full term (unknown) (no (unknown) (unknown) 07/15/22 Rx (units (un known) date) unknown) (unknown) (no (unknown) (unknown) 08/04/22 (units (unkno wn) date) 08/04/22 08/04/22 unknown) (unknown) (no (unknown) (unknown) 08/04/22 Unknown (units (unknown) date) unknown) (unknown) (no (unknown) (unknown) 08/04/22 (units (unkno wn) date) unknown) (unknown) (no (unknown) (unknown) 12:38 (units (unkno wn) date) unknown) (unknown) (no (unknown) (unknown) 13:55 17:38 (units (un known) date) Unknown unknown) (unknown) (no (unknown) (unknown) 166/98. 20mg IV (units (unknown) date) Latetalol was unknown) given. The pt continues to deny any symptoms. (unknown) (no (unknown) (unknown) :38 (units (unkno wn) date) unknown) (unknown) (no (unknown) (unknown) ALT 25 (units (unkno wn) date) unknown) (unknown) (no (unknown) (unknown) ALT (units (unkno wn) date) unknown) (unknown) (no (unknown) (unknown) AST 31 (units (unkno wn) date) unknown) (unknown) (no (unknown) (unknown) AST (units (unkno wn) date) unknown) (unknown) (no (unknown) (unknown) Abd: soft, (units (unk nown) date) nontender, gravid unknown) (unknown) (no (unknown) (unknown) Age/Sex: 32 / F (units (unknown) date) unknown) (unknown) (no (unknown) (unknown) Albumin 3.5 (units (un known) date) unknown) (unknown) (no (unknown) (unknown) Albumin (units (unkno wn) date) unknown) (unknown) (no (unknown) (unknown) Albumin/Globulin (units (unknown) date) Ratio 1.0 unknown) (unknown) (no (unknown) (unknown) Albumin/Globulin (units (unknown) date) Ratio unknown) (unknown) (no (unknown) (unknown) Alkaline (units (unkno wn) date) Phosphatase 100 unknown) (unknown) (no (unknown) (unknown) Alkaline (units (unkno wn) date) Phosphatase unknown) (unknown) (no (unknown) (unknown) Allergies (units (unkn own) date) unknown) (unknown) (no (unknown) (unknown) Allergy/AdvReac (units (unknown) date) Type Severity unknown) Reaction Status Date / Time (unknown) (no (unknown) (unknown) Antibiotics) (units (u nknown) date) unknown) (unknown) (no (unknown) (unknown) Antibody Screen (units (unknown) date) Negative 03/16/22 unknown) 12:38 (unknown) (no (unknown) (unknown) Assessment and (units (unknown) date) Plan narrative: unknown) (unknown) (no (unknown) (unknown) Assessment and (units (unknown) date) Plan unknown) (unknown) (no (unknown) (unknown) BUN 10 (units (unkno wn) date) unknown) (unknown) (no (unknown) (unknown) BUN (units (unkno wn) date) unknown) (unknown) (no (unknown) (unknown) BUN/Creatinine (units (unknown) date) Ratio 14.9 unknown) (unknown) (no (unknown) (unknown) BUN/Creatinine (units (unknown) date) Ratio unknown) (unknown) (no (unknown) (unknown) Baseline (units (unknown) date) heart rate: 130 unknown) (unknown) (no (unknown) (unknown) Baso # (Auto) 0 (units (unknown) date) unknown) (unknown) (no (unknown) (unknown) Baso # (Auto) (units ( unknown) date) unknown) (unknown) (no (unknown) (unknown) Baso % (Auto) (units ( unknown) date) 0.2 unknown) (unknown) (no (unknown) (unknown) Baso % (Auto) (units ( unknown) date) unknown) (unknown) (no (unknown) (unknown) Betamethasone at (units (unknown) date) 16:13. 20mg of IV unknown) Labetalol was given at 17:26. Blood (unknown) (no (unknown) (unknown) Blood Type O (units (u nknown) date) Positive 03/16/22 unknown) 12:38 (unknown) (no (unknown) (unknown) Blood sugar was (units (unknown) date) checked and found unknown) to be 185, approximately 1.5hrs after a (unknown) (no (unknown) (unknown) Breastfeed Preg (units (unknown) date) Comp Name unknown) (unknown) (no (unknown) (unknown) CV: RRR, no (units (un known) date) murmurs unknown) (unknown) (no (unknown) (unknown) Calcium 10.2 (units (u nknown) date) unknown) (unknown) (no (unknown) (unknown) Calcium (units (unkno wn) date) unknown) (unknown) (no (unknown) (unknown) Carbon Dioxide (units (unknown) date) 22 unknown) (unknown) (no (unknown) (unknown) Carbon Dioxide (units (unknown) date) unknown) (unknown) (no (unknown) (unknown) Chief complaint: (units (unknown) date) 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 (unknown) (no (unknown) (unknown) Chloride 105 (units (u nknown) date) unknown) (unknown) (no (unknown) (unknown) Chloride (units (unkno wn) date) unknown) (unknown) (no (unknown) (unknown) Chronic cough (units ( unknown) date) (-2000) unknown) (unknown) (no (unknown) (unknown) Creatinine 0.67 (units (unknown) date) unknown) (unknown) (no (unknown) (unknown) Creatinine (units (unk nown) date) unknown) (unknown) (no (unknown) (unknown) Current Estimate (units (unknown) date) 09/16/22 LMP unknown) (Certain) 33w 6d (unknown) (no (unknown) (unknown) : 1990 (units (unknown) date) Acct:[id number] unknown) (unknown) (no (unknown) (unknown) Date Patient (units (u nknown) date) Seen: 08/04/22 unknown) (unknown) (no (unknown) (unknown) Date of Service: (units (unknown) date) 08/04/22 unknown) (unknown) (no (unknown) (unknown) Date of (units (unkno wn) date) admission: unknown) 08/04/22 (unknown) (no (unknown) (unknown) Date/Time (units (unkn own) date) unknown) (unknown) (no (unknown) (unknown) Dating criteria (units (unknown) date) OB: LMP confirmed unknown) by 1st trimester US (unknown) (no (unknown) (unknown) Del. Date (units (unkn own) date) GA/Weeks Labor unknown) Lgth Wt Sex Route Outcome Anesthesia Place (unknown) (no (unknown) (unknown) Delivery Date: (units (unknown) date) 12/10/14 Last unknown) Updated by: Bianca Arenas R.N. (unknown) (no (unknown) (unknown) Delivery Date: (units (unknown) date) 01/06/11 Last unknown) Updated by: Bianca Arenas R.N. (unknown) (no (unknown) (unknown) Delv (units (unkno wn) date) unknown) (unknown) (no (unknown) (unknown) Depression (units (unk nown) date) unknown) (unknown) (no (unknown) (unknown) CLAU Calculator (units (unknown) date) unknown) (unknown) (no (unknown) (unknown) Eos # (Auto) 100 (units (unknown) date) unknown) (unknown) (no (unknown) (unknown) Eos # (Auto) (units (u nknown) date) unknown) (unknown) (no (unknown) (unknown) Eos % (Auto) 1.2 (units (unknown) date) L unknown) (unknown) (no (unknown) (unknown) Eos % (Auto) (units (u nknown) date) unknown) (unknown) (no (unknown) (unknown) Estimated (units (unkn own) date) Delivery Date unknown) Method Current (unknown) (no (unknown) (unknown) Estimated GFR > (units (unknown) date) 60 unknown) (unknown) (no (unknown) (unknown) Estimated GFR (units ( unknown) date) unknown) (unknown) (no (unknown) (unknown) Estimated (units (unkn own) date) Gestational Age unknown) (weeks): 33w6d (unknown) (no (unknown) (unknown) Evaluation (units (unk nown) date) unknown) (unknown) (no (unknown) (unknown) Exam Narrative: (units (unknown) date) unknown) (unknown) (no (unknown) (unknown) Ext: no edema (units ( unknown) date) unknown) (unknown) (no (unknown) (unknown) External Labs (units ( unknown) date) unknown) (unknown) (no (unknown) (unknown) Family History (units (unknown) date) (Reviewed unknown) 07/30/22 @ 11:31 by Karina Gaytan DO) (unknown) (no (unknown) (unknown) Monitor (units ( unknown) date) Decelerations: unknown) Absent (unknown) (no (unknown) (unknown) monitor (units ( unknown) date) accelerations: unknown) Present (unknown) (no (unknown) (unknown) Gen: NAD, (units (unkn own) date) sitting unknown) comfortably in bed, appears well (unknown) (no (unknown) (unknown) Genetic Screens: (units (unknown) date) Quad screen: unknown) Normal (unknown) (no (unknown) (unknown) Globulin 3.4 (units (u nknown) date) unknown) (unknown) (no (unknown) (unknown) Globulin (units (unkno wn) date) unknown) (unknown) (no (unknown) (unknown) Glucose 79 (units (unk nown) date) unknown) (unknown) (no (unknown) (unknown) Glucose (units (unkno wn) date) unknown) (unknown) (no (unknown) (unknown) Grandfather (units (un known) date) Hypertension unknown) (unknown) (no (unknown) (unknown) Grandmother Type (units (unknown) date) 2 diabetes unknown) mellitus (unknown) (no (unknown) (unknown) : 3 (units (unk nown) date) unknown) (unknown) (no (unknown) (unknown) Hct 27.1 L (units (unk nown) date) unknown) (unknown) (no (unknown) (unknown) Hct (units (unkno wn) date) unknown) (unknown) (no (unknown) (unknown) Hematocrit 27.1 (units (unknown) date) % (36-46) L unknown) 08/04/22 23:59 (unknown) (no (unknown) (unknown) Hemoglobin 9.6 (units (unknown) date) g/dL (12.0-16.0) unknown) L 08/04/22 23:59 (unknown) (no (unknown) (unknown) Hepatitis B (units (un known) date) Surface Antigen unknown) Negative s/c (NEGATIVE) 03/16/22 12 (unknown) (no (unknown) (unknown) Hepatitis C (units (un known) date) Antibody Negative unknown) s/c (NEGATIVE) 03/16/22 12:38 (unknown) (no (unknown) (unknown) Hgb 9.6 L (units (unkn own) date) unknown) (unknown) (no (unknown) (unknown) Hgb (units (unkno wn) date) unknown) (unknown) (no (unknown) (unknown) History of (units (unk nown) date) Present Condition unknown) (unknown) (no (unknown) (unknown) Home Medications (units (unknown) date) and Allergies unknown) (unknown) (no (unknown) (unknown) Home Medications (units (unknown) date) unknown) (unknown) (no (unknown) (unknown) Hypertension (units (u nknown) date) unknown) (unknown) (no (unknown) (unknown) IH 3 months (units (un known) date) unknown) (unknown) (no (unknown) (unknown) IH attempted (units (u nknown) date) unknown) (unknown) (no (unknown) (unknown) ITCHING (units (unkno wn) date) unknown) (unknown) (no (unknown) (unknown) [facility] (units (unknown) date) [address] unknown) [place] [address] (unknown) (no (unknown) (unknown) Labetalol BID. (units (unknown) date) She failed her unknown) glucola, and 3hr GTT on 07/30 was abnormal. She (unknown) (no (unknown) (unknown) Laboratory (units (unk nown) date) Results - last 24 unknown) hr (unknown) (no (unknown) (unknown) Labs (units (unkno wn) date) unknown) (unknown) (no (unknown) (unknown) Labs: (units (unkno wn) date) unknown) (unknown) (no (unknown) (unknown) Last OB Lab (units (un known) date) Results: unknown) (unknown) (no (unknown) (unknown) Lymph # (Auto) (units (unknown) date) 900 L unknown) (unknown) (no (unknown) (unknown) Lymph # (Auto) (units (unknown) date) unknown) (unknown) (no (unknown) (unknown) Lymph % (Auto) (units (unknown) date) 12.8 L unknown) (unknown) (no (unknown) (unknown) Lymph % (Auto) (units (unknown) date) unknown) (unknown) (no (unknown) (unknown) MCH 32.8 (units (unkno wn) date) unknown) (unknown) (no (unknown) (unknown) MCH (units (unkno wn) date) unknown) (unknown) (no (unknown) (unknown) MCHC 35.3 (units (unkn own) date) unknown) (unknown) (no (unknown) (unknown) MCHC (units (unkno wn) date) unknown) (unknown) (no (unknown) (unknown) MCV 92.7 (units (unkno wn) date) unknown) (unknown) (no (unknown) (unknown) MCV (units (unkno wn) date) unknown) (unknown) (no (unknown) (unknown) Medical History (units (unknown) date) (Reviewed unknown) 07/30/22 @ 11:31 by Karina Gaytan DO) (unknown) (no (unknown) (unknown) Medical (units (unkno wn) date) complications OB: unknown) cardiovascular (chronic hypertension) (unknown) (no (unknown) (unknown) Medication (units (unk nown) date) Instructions unknown) Recorded Confirmed Type (unknown) (no (unknown) (unknown) Meds (units (unkno wn) date) unknown) (unknown) (no (unknown) (unknown) [place] # (Auto) (units ( unknown) date) 600 unknown) (unknown) (no (unknown) (unknown) [place] # (Auto) (units ( unknown) date) unknown) (unknown) (no (unknown) (unknown) [place] % (Auto) (units ( unknown) date) 8.6 unknown) (unknown) (no (unknown) (unknown) [place] % (Auto) (units ( unknown) date) unknown) (unknown) (no (unknown) (unknown) Mother Age: 51 (units (unknown) date) Stroke unknown) (unknown) (no (unknown) (unknown) Narrative (units (unkn own) date) unknown) (unknown) (no (unknown) (unknown) Narrative: (units (unk nown) date) unknown) (unknown) (no (unknown) (unknown) Neuro: no (units (unkn own) date) clonus, patellar unknown) reflexes 1 (unknown) (no (unknown) (unknown) Neut # (Auto) (units ( unknown) date) 5500 unknown) (unknown) (no (unknown) (unknown) Neut # (Auto) (units ( unknown) date) unknown) (unknown) (no (unknown) (unknown) Neut % (Auto) (units ( unknown) date) 77.2 H unknown) (unknown) (no (unknown) (unknown) Neut % (Auto) (units ( unknown) date) unknown) (unknown) (no (unknown) (unknown) OB Exam (units (unkno wn) date) unknown) (unknown) (no (unknown) (unknown) OB HPI (units (unkno wn) date) unknown) (unknown) (no (unknown) (unknown) [employer] History + (units (unknown) date) Physical unknown) (unknown) (no (unknown) (unknown) Objective (units (unkn own) date) unknown) (unknown) (no (unknown) (unknown) Obstetrical (units (un known) date) complications: unknown) gestational diabetes and preeclampsia (unknown) (no (unknown) (unknown) PFSH (units (unkno wn) date) unknown) (unknown) (no (unknown) (unknown) PO Labetalol (units (u nknown) date) 'bolus' to help unknown) maintain BPs in lower range. Dr Roberts at (unknown) (no (unknown) (unknown) PUPP (pruritic (units (unknown) date) urticarial unknown) papules and plaques of ) (unknown) (no (unknown) (unknown) PUPPPS rash (units (un known) date) unknown) (unknown) (no (unknown) (unknown) Para: 2 (units (unkno wn) date) unknown) (unknown) (no (unknown) (unknown) Past Pregnancies (units (unknown) date) unknown) (unknown) (no (unknown) (unknown) Patient: (units (unkno wn) date) [place] unknown) MR#: [id number] (unknown) (no (unknown) (unknown) Plantar (units (unkno wn) date) fasciitis (-2016) unknown) (unknown) (no (unknown) (unknown) Plt Count 177 (units ( unknown) date) unknown) (unknown) (no (unknown) (unknown) Plt Count (units (unkn own) date) unknown) (unknown) (no (unknown) (unknown) Potassium 3.5 (units ( unknown) date) unknown) (unknown) (no (unknown) (unknown) Potassium (units (unkn own) date) unknown) (unknown) (no (unknown) (unknown) Preadmission (units (u nknown) date) Labs unknown) (unknown) (no (unknown) (unknown) care: (units (unknown) date) good care, unknown) initiated at week # (8), number of visits (8) and (unknown) (no (unknown) (unknown) Prior (units (unkno wn) date) (ies) unknown) (unknown) (no (unknown) (unknown) Protein/Creatini (units (unknown) date) n Ratio 0.36 unknown) (unknown) (no (unknown) (unknown) Protein/Creatini (units (unknown) date) n Ratio unknown) (unknown) (no (unknown) (unknown) [place] (units (unkn own) date) [place] was unknown) contacted, and agreed to accept the patient for transfer. (unknown) (no (unknown) (unknown) Provider: (units (unkn own) date) Rabia Gooden MD unknown) (unknown) (no (unknown) (unknown) Psoriasis (units (unkn own) date) unknown) (unknown) (no (unknown) (unknown) Pt is a 32yo (units (u nknown) date) at 33w6d unknown) with complicated by GDM (recently (unknown) (no (unknown) (unknown) Pt is a 32yo (units (u nknown) date) at 33w6d, unknown) complicated by chronic HTN, GDM (unknown (unknown) (no (unknown) (unknown) RBC 2.92 L (units (unk nown) date) unknown) (unknown) (no (unknown) (unknown) RBC (units (unkno wn) date) unknown) (unknown) (no (unknown) (unknown) RDW 15.0 H (units (unk nown) date) unknown) (unknown) (no (unknown) (unknown) RDW (units (unkno wn) date) unknown) (unknown) (no (unknown) (unknown) Resp: clear to (units (unknown) date) auscultation unknown) bilaterally (unknown) (no (unknown) (unknown) Result Diagrams: (units (unknown) date) unknown) (unknown) (no (unknown) (unknown) Rubella Antibody (units (unknown) date) 7.3 IU/mL (>15) L unknown) 03/16/22 12:38 (unknown) (no (unknown) (unknown) SARS-CoV-2 (PCR) (units (unknown) date) Negative unknown) (unknown) (no (unknown) (unknown) SARS-CoV-2 (PCR) (units (unknown) date) unknown) (unknown) (no (unknown) (unknown) Signed By: (units (unk nown) date) unknown) (unknown) (no (unknown) (unknown) Smoking Status: (units (unknown) date) Never smoker unknown) (unknown) (no (unknown) (unknown) Social History (units (unknown) date) (Reviewed unknown) 07/30/22 @ 11:31 by Karina Gaytan DO) (unknown) (no (unknown) (unknown) Sodium 137 (units (unk nown) date) unknown) (unknown) (no (unknown) (unknown) Sodium (units (unkno wn) date) unknown) (unknown) (no (unknown) (unknown) Status post (units (un known) date) appendectomy unknown) (-1993) (unknown) (no (unknown) (unknown) Status post (units (un known) date) delivery unknown) (01/06/11) (unknown) (no (unknown) (unknown) Status post (units (un known) date) delivery unknown) (unknown) (no (unknown) (unknown) Sulfa (units (unkno wn) date) (Sulfonamide unknown) Allergy Mild RASH Verified 07/15/22 09:55 (unknown) (no (unknown) (unknown) Surgical History (units (unknown) date) (Reviewed unknown) 07/30/22 @ 11:31 by Karina Gaytan DO) (unknown) (no (unknown) (unknown) The pts (units (unkno wn) date) was unknown) complicated by chronic hypertension, currently on 400mg (unknown) (no (unknown) (unknown) Time Patient (units (u nknown) date) Seen: 18:02 unknown) (unknown) (no (unknown) (unknown) Total Bilirubin (units (unknown) date) 0.4 unknown) (unknown) (no (unknown) (unknown) Total Bilirubin (units (unknown) date) unknown) (unknown) (no (unknown) (unknown) Total Protein (units ( unknown) date) 6.9 unknown) (unknown) (no (unknown) (unknown) Total Protein (units ( unknown) date) unknown) (unknown) (no (unknown) (unknown) Type(s) of (units (unk nown) date) exercise: none unknown) (unknown) (no (unknown) (unknown) U Random Total (units (unknown) date) Protein 18 H unknown) (unknown) (no (unknown) (unknown) U Random Total (units (unknown) date) Protein unknown) (unknown) (no (unknown) (unknown) Ultrasounds: (units (u nknown) date) normal 1st unknown) trimester US and normal mid trimester US (unknown) (no (unknown) (unknown) [facility] (units ( unknown) date) [place] was unknown) contacted for transfer due to prematurity. MgSO4 (unknown) (no (unknown) (unknown) Unknown (units (unkno wn) date) unknown) (unknown) (no (unknown) (unknown) Uric Acid 6.2 (units ( unknown) date) unknown) (unknown) (no (unknown) (unknown) Uric Acid (units (unkn own) date) unknown) (unknown) (no (unknown) (unknown) Urine Creatinine (units (unknown) date) 48.8 unknown) (unknown) (no (unknown) (unknown) Urine Creatinine (units (unknown) date) unknown) (unknown) (no (unknown) (unknown) Variability: (units (u nknown) date) Moderate (11-25) unknown) (unknown) (no (unknown) (unknown) Varicella-Zoster (units (unknown) date) IgG Antibody 339 unknown) index (Immune >165) 03/16/22 (unknown) (no (unknown) (unknown) WBC 7.1 (units (unkno wn) date) unknown) (unknown) (no (unknown) (unknown) WBC (units (unkno wn) date) unknown) (unknown) (no (unknown) (unknown) WG (units (unkno wn) date) unknown) (unknown) (no (unknown) (unknown) [Embedded Image (units (unknown) date) Not Available] unknown) (unknown) (no (unknown) (unknown) after. (units (unkno wn) date) unknown) (unknown) (no (unknown) (unknown) alcohol intake: (units (unknown) date) former unknown) (unknown) (no (unknown) (unknown) amoxicillin (units (un known) date) Allergy Mild Rash unknown) Verified 07/15/22 09:55 (unknown) (no (unknown) (unknown) azithromycin (units (u nknown) date) Allergy Mild RASH unknown) AND Verified 07/15/22 09:55 (unknown) (no (unknown) (unknown) caffeine: Yes (units ( unknown) date) unknown) (unknown) (no (unknown) (unknown) carbohydrate (units (u nknown) date) heavy meal. The unknown) pt received 10 units of insulin Lispro. Urine tox (unknown) (no (unknown) (unknown) carbon monox (units (u nknown) date) detector in home: unknown) Yes (unknown) (no (unknown) (unknown) chlorhexidine (units ( unknown) date) AdvReac unknown) Intermediate Blister Verified 07/15/22 09:55 (unknown) (no (unknown) (unknown) clobetasol 0.05 (units (unknown) date) % topical unknown) ointment 1 applic topical BID #45 grams 07/01/22 (unknown) (no (unknown) (unknown) control), and hx (units (unknown) date) of prior unknown) , who presented for NST for cHTN, now found (unknown) (no (unknown) (unknown) current (units (unkno wn) date) occupational unknown) exposures/hazards : No (unknown) (no (unknown) (unknown) daily servings (units (unknown) date) fruits/ve-1 unknown) (unknown) (no (unknown) (unknown) diagnosed, (units (unk nown) date) unknown control) unknown) and chronic HTN who presented for NST for cHTN. 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 (unknown) (no (unknown) (unknown) headache. She (units ( unknown) date) was given one PO unknown) dose of Nifedipine 30mg XR. Lab work returned (unknown) (no (unknown) (unknown) household (units (unkn own) date) members: unknown) significant other and children (unknown) (no (unknown) (unknown) housing: (units (unkno wn) date) apartment unknown) (unknown) (no (unknown) (unknown) hyperemesis 1st (units (unknown) date) trimester unknown) (unknown) (no (unknown) (unknown) labetalol 100 mg (units (unknown) date) tablet 400 mg PO unknown) BID #[id number] tabs 08/04/22 07/15/22 Rx (unknown) (no (unknown) (unknown) latex AdvReac (units ( unknown) date) Mild ITCHING unknown) Verified 07/15/22 09:55 (unknown) (no (unknown) (unknown) lives (units (unkno wn) date) independently: unknown) Yes (unknown) (no (unknown) (unknown) marital status: (units (unknown) date) unmarried,living unknown) together (unknown) (no (unknown) (unknown) nifedipine 30 mg (units (unknown) date) tablet,extended unknown) 30 mg PO DAILY #30 tabs 08/04/22 Rx (unknown) (no (unknown) (unknown) number of (units (unkn own) date) children: 2 unknown) (unknown) (no (unknown) (unknown) occupational (units (u nknown) date) status: employed unknown) (unknown) (no (unknown) (unknown) other Camron (units (un known) date) unknown) (unknown) (no (unknown) (unknown) other Jeaneth (units (un known) date) unknown) (unknown) (no (unknown) (unknown) pets and (units (unkno wn) date) animals: Yes (1 unknown) cat (pt is not managing litter box)) (unknown) (no (unknown) (unknown) pounds weight (units ( unknown) date) gain (10) unknown) (unknown) (no (unknown) (unknown) prenat.vits,miguel, (units (unknown) date) [id number]-[id number] 1 unknown) tab PO DAILY 01/27/22 07/15/22 History (unknown) (no (unknown) (unknown) pressures (units (unkn own) date) initially unknown) improved with this, but now rising again. Dr Avila at the (unknown) (no (unknown) (unknown) release 24 hr (units ( unknown) date) unknown) (unknown) (no (unknown) (unknown) reports being (units ( unknown) date) asymptomatic unknown) without swelling, RUQ pain, vision changes, or (unknown) (no (unknown) (unknown) seatbelt use: (units ( unknown) date) always unknown) (unknown) (no (unknown) (unknown) second hand (units (un known) date) exposure: No unknown) (unknown) (no (unknown) (unknown) special fly (units ( unknown) date) needs: No unknown) (unknown) (no (unknown) (unknown) substance use (units ( unknown) date) type: marijuana unknown) (unknown) (no (unknown) (unknown) the likely (units (unk nown) date) course will be unknown) completion of her betamethasone dosing and delivery (unknown) (no (unknown) (unknown) to be initiated, (units (unknown) date) will give 4g unknown) bolus followed by 2g/hr. Also recommended 600mg (unknown) (no (unknown) (unknown) to have (units (unkno wn) date) pre-eclampsia unknown) with severe features. Pt received her first dose of (unknown) (no (unknown) (unknown) was ordered. The (units (unknown) date) pt consented to unknown) transfer to [facility], understanding (unknown) (no (unknown) (unknown) was reassuring, (units (unknown) date) however pts BPs unknown) were elevated to the 140-150s/80-90s. The pt (unknown) (no (unknown) (unknown) water heater (units (u nknown) date) temp set < 120 unknown) deg: Yes (Will check and adjust if needed) (unknown) (no (unknown) (unknown) well-balanced (units ( unknown) date) diet: about half unknown) the time (unknown) (no (unknown) (unknown) without evidence (units (unknown) date) of HELLP, however unknown) did have elevated protein/creatinin e ratio (unknown) (no (unknown) (unknown) working smoke (units ( unknown) date) detector in home: unknown) Yes Result panel 17 (unknown) (no (unknown) (unknown) (no value) (units (unk nown) date) unknown) (unknown) (no (unknown) (unknown) (baseline 24hr (units (unknown) date) protein 112). The unknown) pts BPs then spiked to 164/88 with repeat of (unknown) (no (unknown) (unknown) -: Urine: (units (unkn own) date) positive (E coli) unknown) (unknown) (no (unknown) (unknown) [id number] (units (unkno wn) date) unknown) (unknown) (no (unknown) (unknown) 12/10/14 39 8 lb (units (unknown) date) 3 oz Female unknown) live - full term (unknown) (no (unknown) (unknown) 01/06/11 41 1 9 (units (unknown) date) lb 1 oz Male unknown) live - full term (unknown) (no (unknown) (unknown) 07/15/22 Rx (units (un known) date) unknown) (unknown) (no (unknown) (unknown) 08/04/22 (units (unkno wn) date) 08/04/22 08/04/22 unknown) (unknown) (no (unknown) (unknown) 08/04/22 Unknown (units (unknown) date) unknown) (unknown) (no (unknown) (unknown) 08/04/22 (units (unkno wn) date) unknown) (unknown) (no (unknown) (unknown) 12:38 (units (unkno wn) date) unknown) (unknown) (no (unknown) (unknown) 13:55 17:38 (units (un known) date) Unknown unknown) (unknown) (no (unknown) (unknown) 166/98. 20mg IV (units (unknown) date) Latetalol was unknown) given. The pt continues to deny any symptoms. (unknown) (no (unknown) (unknown) :38 (units (unkno wn) date) unknown) (unknown) (no (unknown) (unknown) ALT 25 (units (unkno wn) date) unknown) (unknown) (no (unknown) (unknown) ALT (units (unkno wn) date) unknown) (unknown) (no (unknown) (unknown) AST 31 (units (unkno wn) date) unknown) (unknown) (no (unknown) (unknown) AST (units (unkno wn) date) unknown) (unknown) (no (unknown) (unknown) Abd: soft, (units (unk nown) date) nontender, gravid unknown) (unknown) (no (unknown) (unknown) Age/Sex: 32 / F (units (unknown) date) unknown) (unknown) (no (unknown) (unknown) Albumin 3.5 (units (un known) date) unknown) (unknown) (no (unknown) (unknown) Albumin (units (unkno wn) date) unknown) (unknown) (no (unknown) (unknown) Albumin/Globulin (units (unknown) date) Ratio 1.0 unknown) (unknown) (no (unknown) (unknown) Albumin/Globulin (units (unknown) date) Ratio unknown) (unknown) (no (unknown) (unknown) Alkaline (units (unkno wn) date) Phosphatase 100 unknown) (unknown) (no (unknown) (unknown) Alkaline (units (unkno wn) date) Phosphatase unknown) (unknown) (no (unknown) (unknown) Allergies (units (unkn own) date) unknown) (unknown) (no (unknown) (unknown) Allergy/AdvReac (units (unknown) date) Type Severity unknown) Reaction Status Date / Time (unknown) (no (unknown) (unknown) Antibiotics) (units (u nknown) date) unknown) (unknown) (no (unknown) (unknown) Antibody Screen (units (unknown) date) Negative 03/16/22 unknown) 12:38 (unknown) (no (unknown) (unknown) Assessment and (units (unknown) date) Plan narrative: unknown) (unknown) (no (unknown) (unknown) Assessment and (units (unknown) date) Plan unknown) (unknown) (no (unknown) (unknown) BUN 10 (units (unkno wn) date) unknown) (unknown) (no (unknown) (unknown) BUN (units (unkno wn) date) unknown) (unknown) (no (unknown) (unknown) BUN/Creatinine (units (unknown) date) Ratio 14.9 unknown) (unknown) (no (unknown) (unknown) BUN/Creatinine (units (unknown) date) Ratio unknown) (unknown) (no (unknown) (unknown) Baseline (units (unknown) date) heart rate: 130 unknown) (unknown) (no (unknown) (unknown) Baso # (Auto) 0 (units (unknown) date) unknown) (unknown) (no (unknown) (unknown) Baso # (Auto) (units ( unknown) date) unknown) (unknown) (no (unknown) (unknown) Baso % (Auto) (units ( unknown) date) 0.2 unknown) (unknown) (no (unknown) (unknown) Baso % (Auto) (units ( unknown) date) unknown) (unknown) (no (unknown) (unknown) Betamethasone at (units (unknown) date) 16:13. 20mg of IV unknown) Labetalol was given at 17:26. Blood (unknown) (no (unknown) (unknown) Blood Type O (units (u nknown) date) Positive 03/16/22 unknown) 12:38 (unknown) (no (unknown) (unknown) Blood sugar was (units (unknown) date) checked and found unknown) to be 185, approximately 1.5hrs after a (unknown) (no (unknown) (unknown) Breastfeed Preg (units (unknown) date) Comp Name unknown) (unknown) (no (unknown) (unknown) CV: RRR, no (units (un known) date) murmurs unknown) (unknown) (no (unknown) (unknown) Calcium 10.2 (units (u nknown) date) unknown) (unknown) (no (unknown) (unknown) Calcium (units (unkno wn) date) unknown) (unknown) (no (unknown) (unknown) Carbon Dioxide (units (unknown) date) 22 unknown) (unknown) (no (unknown) (unknown) Carbon Dioxide (units (unknown) date) unknown) (unknown) (no (unknown) (unknown) Chief complaint: (units (unknown) date) 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 (unknown) (no (unknown) (unknown) Chloride 105 (units (u nknown) date) unknown) (unknown) (no (unknown) (unknown) Chloride (units (unkno wn) date) unknown) (unknown) (no (unknown) (unknown) Chronic cough (units ( unknown) date) (-2000) unknown) (unknown) (no (unknown) (unknown) Creatinine 0.67 (units (unknown) date) unknown) (unknown) (no (unknown) (unknown) Creatinine (units (unk nown) date) unknown) (unknown) (no (unknown) (unknown) Current Estimate (units (unknown) date) 09/16/22 LMP unknown) (Certain) 33w 6d (unknown) (no (unknown) (unknown) : 1990 (units (unknown) date) Acct:[id number] unknown) (unknown) (no (unknown) (unknown) Date Patient (units (u nknown) date) Seen: 08/04/22 unknown) (unknown) (no (unknown) (unknown) Date of Service: (units (unknown) date) 08/04/22 unknown) (unknown) (no (unknown) (unknown) Date of (units (unkno wn) date) admission: unknown) 08/04/22 (unknown) (no (unknown) (unknown) Date/Time (units (unkn own) date) unknown) (unknown) (no (unknown) (unknown) Dating criteria (units (unknown) date) OB: LMP confirmed unknown) by 1st trimester US (unknown) (no (unknown) (unknown) Del. Date (units (unkn own) date) GA/Weeks Labor unknown) Lgth Wt Sex Route Outcome Anesthesia Place (unknown) (no (unknown) (unknown) Delivery Date: (units (unknown) date) 12/10/14 Last unknown) Updated by: Bianca Arenas R.N. (unknown) (no (unknown) (unknown) Delivery Date: (units (unknown) date) 01/06/11 Last unknown) Updated by: Bianca Arenas R.N. (unknown) (no (unknown) (unknown) Delv (units (unkno wn) date) unknown) (unknown) (no (unknown) (unknown) Depression (units (unk nown) date) unknown) (unknown) (no (unknown) (unknown) CLAU Calculator (units (unknown) date) unknown) (unknown) (no (unknown) (unknown) Eos # (Auto) 100 (units (unknown) date) unknown) (unknown) (no (unknown) (unknown) Eos # (Auto) (units (u nknown) date) unknown) (unknown) (no (unknown) (unknown) Eos % (Auto) 1.2 (units (unknown) date) L unknown) (unknown) (no (unknown) (unknown) Eos % (Auto) (units (u nknown) date) unknown) (unknown) (no (unknown) (unknown) Estimated (units (unkn own) date) Delivery Date unknown) Method Current (unknown) (no (unknown) (unknown) Estimated GFR > (units (unknown) date) 60 unknown) (unknown) (no (unknown) (unknown) Estimated GFR (units ( unknown) date) unknown) (unknown) (no (unknown) (unknown) Estimated (units (unkn own) date) Gestational Age unknown) (weeks): 33w6d (unknown) (no (unknown) (unknown) Evaluation (units (unk nown) date) unknown) (unknown) (no (unknown) (unknown) Exam Narrative: (units (unknown) date) unknown) (unknown) (no (unknown) (unknown) Ext: no edema (units ( unknown) date) unknown) (unknown) (no (unknown) (unknown) External Labs (units ( unknown) date) unknown) (unknown) (no (unknown) (unknown) Family History (units (unknown) date) (Reviewed unknown) 07/30/22 @ 11:31 by Karina Gaytan DO) (unknown) (no (unknown) (unknown) Monitor (units ( unknown) date) Decelerations: unknown) Absent (unknown) (no (unknown) (unknown) monitor (units ( unknown) date) accelerations: unknown) Present (unknown) (no (unknown) (unknown) Gen: NAD, (units (unkn own) date) sitting unknown) comfortably in bed, appears well (unknown) (no (unknown) (unknown) Genetic Screens: (units (unknown) date) Quad screen: unknown) Normal (unknown) (no (unknown) (unknown) Globulin 3.4 (units (u nknown) date) unknown) (unknown) (no (unknown) (unknown) Globulin (units (unkno wn) date) unknown) (unknown) (no (unknown) (unknown) Glucose 79 (units (unk nown) date) unknown) (unknown) (no (unknown) (unknown) Glucose (units (unkno wn) date) unknown) (unknown) (no (unknown) (unknown) Grandfather (units (un known) date) Hypertension unknown) (unknown) (no (unknown) (unknown) Grandmother Type (units (unknown) date) 2 diabetes unknown) mellitus (unknown) (no (unknown) (unknown) : 3 (units (unk nown) date) unknown) (unknown) (no (unknown) (unknown) Hct 27.1 L (units (unk nown) date) unknown) (unknown) (no (unknown) (unknown) Hct (units (unkno wn) date) unknown) (unknown) (no (unknown) (unknown) Hematocrit 27.1 (units (unknown) date) % (36-46) L unknown) 08/04/22 23:59 (unknown) (no (unknown) (unknown) Hemoglobin 9.6 (units (unknown) date) g/dL (12.0-16.0) unknown) L 08/04/22 23:59 (unknown) (no (unknown) (unknown) Hepatitis B (units (un known) date) Surface Antigen unknown) Negative s/c (NEGATIVE) 03/16/22 12 (unknown) (no (unknown) (unknown) Hepatitis C (units (un known) date) Antibody Negative unknown) s/c (NEGATIVE) 03/16/22 12:38 (unknown) (no (unknown) (unknown) Hgb 9.6 L (units (unkn own) date) unknown) (unknown) (no (unknown) (unknown) Hgb (units (unkno wn) date) unknown) (unknown) (no (unknown) (unknown) History of (units (unk nown) date) Present Condition unknown) (unknown) (no (unknown) (unknown) Home Medications (units (unknown) date) and Allergies unknown) (unknown) (no (unknown) (unknown) Home Medications (units (unknown) date) unknown) (unknown) (no (unknown) (unknown) Hypertension (units (u nknown) date) unknown) (unknown) (no (unknown) (unknown) IH 3 months (units (un known) date) unknown) (unknown) (no (unknown) (unknown) IH attempted (units (u nknown) date) unknown) (unknown) (no (unknown) (unknown) ITCHING (units (unkno wn) date) unknown) (unknown) (no (unknown) (unknown) [facility] (units (unknown) date) [address] unknown) [place] [address] (unknown) (no (unknown) (unknown) Labetalol BID. (units (unknown) date) She failed her unknown) glucola, and 3hr GTT on 07/30 was abnormal. She (unknown) (no (unknown) (unknown) Laboratory (units (unk nown) date) Results - last 24 unknown) hr (unknown) (no (unknown) (unknown) Labs (units (unkno wn) date) unknown) (unknown) (no (unknown) (unknown) Labs: (units (unkno wn) date) unknown) (unknown) (no (unknown) (unknown) Last OB Lab (units (un known) date) Results: unknown) (unknown) (no (unknown) (unknown) Lymph # (Auto) (units (unknown) date) 900 L unknown) (unknown) (no (unknown) (unknown) Lymph # (Auto) (units (unknown) date) unknown) (unknown) (no (unknown) (unknown) Lymph % (Auto) (units (unknown) date) 12.8 L unknown) (unknown) (no (unknown) (unknown) Lymph % (Auto) (units (unknown) date) unknown) (unknown) (no (unknown) (unknown) MCH 32.8 (units (unkno wn) date) unknown) (unknown) (no (unknown) (unknown) MCH (units (unkno wn) date) unknown) (unknown) (no (unknown) (unknown) MCHC 35.3 (units (unkn own) date) unknown) (unknown) (no (unknown) (unknown) MCHC (units (unkno wn) date) unknown) (unknown) (no (unknown) (unknown) MCV 92.7 (units (unkno wn) date) unknown) (unknown) (no (unknown) (unknown) MCV (units (unkno wn) date) unknown) (unknown) (no (unknown) (unknown) Medical History (units (unknown) date) (Reviewed unknown) 07/30/22 @ 11:31 by Karina Gaytan DO) (unknown) (no (unknown) (unknown) Medical (units (unkno wn) date) complications OB: unknown) cardiovascular (chronic hypertension) (unknown) (no (unknown) (unknown) Medication (units (unk nown) date) Instructions unknown) Recorded Confirmed Type (unknown) (no (unknown) (unknown) Meds (units (unkno wn) date) unknown) (unknown) (no (unknown) (unknown) [place] # (Auto) (units ( unknown) date) 600 unknown) (unknown) (no (unknown) (unknown) [place] # (Auto) (units ( unknown) date) unknown) (unknown) (no (unknown) (unknown) [place] % (Auto) (units ( unknown) date) 8.6 unknown) (unknown) (no (unknown) (unknown) [place] % (Auto) (units ( unknown) date) unknown) (unknown) (no (unknown) (unknown) Mother Age: 51 (units (unknown) date) Stroke unknown) (unknown) (no (unknown) (unknown) Narrative (units (unkn own) date) unknown) (unknown) (no (unknown) (unknown) Narrative: (units (unk nown) date) unknown) (unknown) (no (unknown) (unknown) Neuro: no (units (unkn own) date) clonus, patellar unknown) reflexes 1 (unknown) (no (unknown) (unknown) Neut # (Auto) (units ( unknown) date) 5500 unknown) (unknown) (no (unknown) (unknown) Neut # (Auto) (units ( unknown) date) unknown) (unknown) (no (unknown) (unknown) Neut % (Auto) (units ( unknown) date) 77.2 H unknown) (unknown) (no (unknown) (unknown) Neut % (Auto) (units ( unknown) date) unknown) (unknown) (no (unknown) (unknown) OB Exam (units (unkno wn) date) unknown) (unknown) (no (unknown) (unknown) OB HPI (units (unkno wn) date) unknown) (unknown) (no (unknown) (unknown) [employer] History + (units (unknown) date) Physical unknown) (unknown) (no (unknown) (unknown) Objective (units (unkn own) date) unknown) (unknown) (no (unknown) (unknown) Obstetrical (units (un known) date) complications: unknown) gestational diabetes and preeclampsia (unknown) (no (unknown) (unknown) PFSH (units (unkno wn) date) unknown) (unknown) (no (unknown) (unknown) PO Labetalol (units (u nknown) date) 'bolus' to help unknown) maintain BPs in lower range. Dr Roberts at (unknown) (no (unknown) (unknown) PUPP (pruritic (units (unknown) date) urticarial unknown) papules and plaques of ) (unknown) (no (unknown) (unknown) PUPPPS rash (units (un known) date) unknown) (unknown) (no (unknown) (unknown) Para: 2 (units (unkno wn) date) unknown) (unknown) (no (unknown) (unknown) Past Pregnancies (units (unknown) date) unknown) (unknown) (no (unknown) (unknown) Patient: (units (unkno wn) date) [place] unknown) MR#: [id number] (unknown) (no (unknown) (unknown) Plantar (units (unkno wn) date) fasciitis (-2016) unknown) (unknown) (no (unknown) (unknown) Plt Count 177 (units ( unknown) date) unknown) (unknown) (no (unknown) (unknown) Plt Count (units (unkn own) date) unknown) (unknown) (no (unknown) (unknown) Potassium 3.5 (units ( unknown) date) unknown) (unknown) (no (unknown) (unknown) Potassium (units (unkn own) date) unknown) (unknown) (no (unknown) (unknown) Preadmission (units (u nknown) date) Labs unknown) (unknown) (no (unknown) (unknown) care: (units (unknown) date) good care, unknown) initiated at week # (8), number of visits (8) and (unknown) (no (unknown) (unknown) Prior (units (unkno wn) date) (ies) unknown) (unknown) (no (unknown) (unknown) Protein/Creatini (units (unknown) date) n Ratio 0.36 unknown) (unknown) (no (unknown) (unknown) Protein/Creatini (units (unknown) date) n Ratio unknown) (unknown) (no (unknown) (unknown) [place] (units (unkn own) date) [place] was unknown) contacted, and agreed to accept the patient for transfer. (unknown) (no (unknown) (unknown) [place] (units (unk nown) date) [place], unknown) understanding the likely course will be completion of her (unknown) (no (unknown) (unknown) Provider: (units (unkn own) date) Rabia Gooden MD unknown) (unknown) (no (unknown) (unknown) Psoriasis (units (unkn own) date) unknown) (unknown) (no (unknown) (unknown) Pt is a 32yo (units (u nknown) date) at 33w6d unknown) with complicated by GDM (recently (unknown) (no (unknown) (unknown) Pt is a 32yo (units (u nknown) date) at 33w6d, unknown) complicated by chronic HTN, GDM (unknown (unknown) (no (unknown) (unknown) RBC 2.92 L (units (unk nown) date) unknown) (unknown) (no (unknown) (unknown) RBC (units (unkno wn) date) unknown) (unknown) (no (unknown) (unknown) RDW 15.0 H (units (unk nown) date) unknown) (unknown) (no (unknown) (unknown) RDW (units (unkno wn) date) unknown) (unknown) (no (unknown) (unknown) Resp: clear to (units (unknown) date) auscultation unknown) bilaterally (unknown) (no (unknown) (unknown) Result Diagrams: (units (unknown) date) unknown) (unknown) (no (unknown) (unknown) Rubella Antibody (units (unknown) date) 7.3 IU/mL (>15) L unknown) 03/16/22 12:38 (unknown) (no (unknown) (unknown) SARS-CoV-2 (PCR) (units (unknown) date) Negative unknown) (unknown) (no (unknown) (unknown) SARS-CoV-2 (PCR) (units (unknown) date) unknown) (unknown) (no (unknown) (unknown) Signed By: (units (unk nown) date) unknown) (unknown) (no (unknown) (unknown) Smoking Status: (units (unknown) date) Never smoker unknown) (unknown) (no (unknown) (unknown) Social History (units (unknown) date) (Reviewed unknown) 07/30/22 @ 11:31 by Karina Gaytan DO) (unknown) (no (unknown) (unknown) Sodium 137 (units (unk nown) date) unknown) (unknown) (no (unknown) (unknown) Sodium (units (unkno wn) date) unknown) (unknown) (no (unknown) (unknown) Status post (units (un known) date) appendectomy unknown) () (unknown) (no (unknown) (unknown) Status post (units (un known) date) delivery unknown) (01/06/11) (unknown) (no (unknown) (unknown) Status post (units (un known) date) delivery unknown) (unknown) (no (unknown) (unknown) Sulfa (units (unkno wn) date) (Sulfonamide unknown) Allergy Mild RASH Verified 07/15/22 09:55 (unknown) (no (unknown) (unknown) Surgical History (units (unknown) date) (Reviewed unknown) 07/30/22 @ 11:31 by Karina Gaytan DO) (unknown) (no (unknown) (unknown) The pts (units (unkno wn) date) was unknown) complicated by chronic hypertension, currently on 400mg (unknown) (no (unknown) (unknown) Time Patient (units (u nknown) date) Seen: 18:02 unknown) (unknown) (no (unknown) (unknown) Total Bilirubin (units (unknown) date) 0.4 unknown) (unknown) (no (unknown) (unknown) Total Bilirubin (units (unknown) date) unknown) (unknown) (no (unknown) (unknown) Total Protein (units ( unknown) date) 6.9 unknown) (unknown) (no (unknown) (unknown) Total Protein (units ( unknown) date) unknown) (unknown) (no (unknown) (unknown) Type(s) of (units (unk nown) date) exercise: none unknown) (unknown) (no (unknown) (unknown) U Random Total (units (unknown) date) Protein 18 H unknown) (unknown) (no (unknown) (unknown) U Random Total (units (unknown) date) Protein unknown) (unknown) (no (unknown) (unknown) Ultrasounds: (units (u nknown) date) normal 1st unknown) trimester US and normal mid trimester US (unknown) (no (unknown) (unknown) [facility] (units ( unknown) date) [place] was unknown) contacted for transfer due to prematurity. MgSO4 (unknown) (no (unknown) (unknown) Unknown (units (unkno wn) date) unknown) (unknown) (no (unknown) (unknown) Uric Acid 6.2 (units ( unknown) date) unknown) (unknown) (no (unknown) (unknown) Uric Acid (units (unkn own) date) unknown) (unknown) (no (unknown) (unknown) Urine Creatinine (units (unknown) date) 48.8 unknown) (unknown) (no (unknown) (unknown) Urine Creatinine (units (unknown) date) unknown) (unknown) (no (unknown) (unknown) Variability: (units (u nknown) date) Moderate (11-25) unknown) (unknown) (no (unknown) (unknown) Varicella-Zoster (units (unknown) date) IgG Antibody 339 unknown) index (Immune >165) 03/16/22 (unknown) (no (unknown) (unknown) WBC 7.1 (units (unkno wn) date) unknown) (unknown) (no (unknown) (unknown) WBC (units (unkno wn) date) unknown) (unknown) (no (unknown) (unknown) WG (units (unkno wn) date) unknown) (unknown) (no (unknown) (unknown) [Embedded Image (units (unknown) date) Not Available] unknown) (unknown) (no (unknown) (unknown) alcohol intake: (units (unknown) date) former unknown) (unknown) (no (unknown) (unknown) amoxicillin (units (un known) date) Allergy Mild Rash unknown) Verified 07/15/22 09:55 (unknown) (no (unknown) (unknown) azithromycin (units (u nknown) date) Allergy Mild RASH unknown) AND Verified 07/15/22 09:55 (unknown) (no (unknown) (unknown) betamethasone (units ( unknown) date) and delivery via unknown) repeat after. (unknown) (no (unknown) (unknown) caffeine: Yes (units ( unknown) date) unknown) (unknown) (no (unknown) (unknown) carbohydrate (units (u nknown) date) heavy meal. The unknown) pt received 10 units of insulin Lispro. Urine tox (unknown) (no (unknown) (unknown) carbon monox (units (u nknown) date) detector in home: unknown) Yes (unknown) (no (unknown) (unknown) chlorhexidine (units ( unknown) date) AdvReac unknown) Intermediate Blister Verified 07/15/22 09:55 (unknown) (no (unknown) (unknown) clobetasol 0.05 (units (unknown) date) % topical unknown) ointment 1 applic topical BID #45 grams 07/01/22 (unknown) (no (unknown) (unknown) control), and hx (units (unknown) date) of prior unknown) , who presented for NST for cHTN, now found (unknown) (no (unknown) (unknown) current (units (unkno wn) date) occupational unknown) exposures/hazards : No (unknown) (no (unknown) (unknown) daily servings (units (unknown) date) fruits/ve-1 unknown) (unknown) (no (unknown) (unknown) diagnosed, (units (unk nown) date) unknown control) unknown) and chronic HTN who presented for NST for cHTN. 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 (unknown) (no (unknown) (unknown) headache. She (units ( unknown) date) was given one PO unknown) dose of Nifedipine 30mg XR. Lab work returned (unknown) (no (unknown) (unknown) household (units (unkn own) date) members: unknown) significant other and children (unknown) (no (unknown) (unknown) housing: (units (unkno wn) date) apartment unknown) (unknown) (no (unknown) (unknown) hyperemesis 1st (units (unknown) date) trimester unknown) (unknown) (no (unknown) (unknown) labetalol 100 mg (units (unknown) date) tablet 400 mg PO unknown) BID #[id number] tabs 08/04/22 07/15/22 Rx (unknown) (no (unknown) (unknown) latex AdvReac (units ( unknown) date) Mild ITCHING unknown) Verified 07/15/22 09:55 (unknown) (no (unknown) (unknown) lives (units (unkno wn) date) independently: unknown) Yes (unknown) (no (unknown) (unknown) marital status: (units (unknown) date) unmarried,living unknown) together (unknown) (no (unknown) (unknown) nifedipine 30 mg (units (unknown) date) tablet,extended unknown) 30 mg PO DAILY #30 tabs 08/04/22 Rx (unknown) (no (unknown) (unknown) number of (units (unkn own) date) children: 2 unknown) (unknown) (no (unknown) (unknown) occupational (units (u nknown) date) status: employed unknown) (unknown) (no (unknown) (unknown) other Camron (units (un known) date) unknown) (unknown) (no (unknown) (unknown) other Jeaneth (units (un known) date) unknown) (unknown) (no (unknown) (unknown) pets and (units (unkno wn) date) animals: Yes (1 unknown) cat (pt is not managing litter box)) (unknown) (no (unknown) (unknown) pounds weight (units ( unknown) date) gain (10) unknown) (unknown) (no (unknown) (unknown) prenat.vits,miguel, (units (unknown) date) [id number] 1 unknown) tab PO DAILY 01/27/22 07/15/22 History (unknown) (no (unknown) (unknown) pressures (units (unkn own) date) initially unknown) improved with this, but now rising again. Dr Avila at the (unknown) (no (unknown) (unknown) release 24 hr (units ( unknown) date) unknown) (unknown) (no (unknown) (unknown) reports being (units ( unknown) date) asymptomatic unknown) without swelling, RUQ pain, vision changes, or (unknown) (no (unknown) (unknown) seatbelt use: (units ( unknown) date) always unknown) (unknown) (no (unknown) (unknown) second hand (units (un known) date) exposure: No unknown) (unknown) (no (unknown) (unknown) special fly (units ( unknown) date) needs: No unknown) (unknown) (no (unknown) (unknown) substance use (units ( unknown) date) type: marijuana unknown) (unknown) (no (unknown) (unknown) to be initiated, (units (unknown) date) will give 4g unknown) bolus followed by 2g/hr. Also recommended 600mg (unknown) (no (unknown) (unknown) to have (units (unkno wn) date) pre-eclampsia unknown) with severe features. Pt received her first dose of (unknown) (no (unknown) (unknown) was ordered, (units (u nknown) date) pending at the unknown) time of this note. The pt consented to transfer to (unknown) (no (unknown) (unknown) was reassuring, (units (unknown) date) however pts BPs unknown) were elevated to the 140-150s/80-90s. The pt (unknown) (no (unknown) (unknown) water heater (units (u nknown) date) temp set < 120 unknown) deg: Yes (Will check and adjust if needed) (unknown) (no (unknown) (unknown) well-balanced (units ( unknown) date) diet: about half unknown) the time (unknown) (no (unknown) (unknown) without evidence (units (unknown) date) of HELLP, however unknown) did have elevated protein/creatinin e ratio (unknown) (no (unknown) (unknown) working smoke (units ( unknown) date) detector in home: unknown) Yes Result panel 18 (unknown) (no date) (unknown) (unknown) Negative (units (unkn own) unknown) (unknown) (no date) (unknown) (unknown) Normal (units (unkn own) unknown) Result panel 19 (unknown) (no (unknown) (unknown) (no value) (units (unk nown) date) unknown) (unknown) (no (unknown) (unknown) (baseline 24hr (units (unknown) date) protein 112). The unknown) pts BPs then spiked to 164/88 with repeat of (unknown) (no (unknown) (unknown) -: Urine: (units (unkn own) date) positive (E coli) unknown) (unknown) (no (unknown) (unknown) [id number] (units (unkno wn) date) unknown) (unknown) (no (unknown) (unknown) 12/10/14 39 8 lb (units (unknown) date) 3 oz Female unknown) live - full term (unknown) (no (unknown) (unknown) 01/06/11 41 1 9 (units (unknown) date) lb 1 oz Male unknown) live - full term (unknown) (no (unknown) (unknown) 07/15/22 Rx (units (un known) date) unknown) (unknown) (no (unknown) (unknown) 08/04/22 (units (unkno wn) date) 08/04/22 08/04/22 unknown) (unknown) (no (unknown) (unknown) 08/04/22 2039 (units ( unknown) date) unknown) (unknown) (no (unknown) (unknown) 08/04/22 Unknown (units (unknown) date) unknown) (unknown) (no (unknown) (unknown) 08/04/22 (units (unkno wn) date) unknown) (unknown) (no (unknown) (unknown) 12:38 (units (unkno wn) date) unknown) (unknown) (no (unknown) (unknown) 13:55 17:38 (units (un known) date) Unknown unknown) (unknown) (no (unknown) (unknown) 166/98. 20mg IV (units (unknown) date) Latetalol was unknown) given. The pt continues to deny any symptoms. (unknown) (no (unknown) (unknown) :38 (units (unkno wn) date) unknown) (unknown) (no (unknown) (unknown) ALT 25 (units (unkno wn) date) unknown) (unknown) (no (unknown) (unknown) ALT (units (unkno wn) date) unknown) (unknown) (no (unknown) (unknown) AST 31 (units (unkno wn) date) unknown) (unknown) (no (unknown) (unknown) AST (units (unkno wn) date) unknown) (unknown) (no (unknown) (unknown) Abd: soft, (units (unk nown) date) nontender, gravid unknown) (unknown) (no (unknown) (unknown) Age/Sex: 32 / F (units (unknown) date) unknown) (unknown) (no (unknown) (unknown) Albumin 3.5 (units (un known) date) unknown) (unknown) (no (unknown) (unknown) Albumin (units (unkno wn) date) unknown) (unknown) (no (unknown) (unknown) Albumin/Globulin (units (unknown) date) Ratio 1.0 unknown) (unknown) (no (unknown) (unknown) Albumin/Globulin (units (unknown) date) Ratio unknown) (unknown) (no (unknown) (unknown) Alkaline (units (unkno wn) date) Phosphatase 100 unknown) (unknown) (no (unknown) (unknown) Alkaline (units (unkno wn) date) Phosphatase unknown) (unknown) (no (unknown) (unknown) Allergies (units (unkn own) date) unknown) (unknown) (no (unknown) (unknown) Allergy/AdvReac (units (unknown) date) Type Severity unknown) Reaction Status Date / Time (unknown) (no (unknown) (unknown) Antibiotics) (units (u nknown) date) unknown) (unknown) (no (unknown) (unknown) Antibody Screen (units (unknown) date) Negative 03/16/22 unknown) 12:38 (unknown) (no (unknown) (unknown) Assessment and (units (unknown) date) Plan narrative: unknown) (unknown) (no (unknown) (unknown) Assessment and (units (unknown) date) Plan unknown) (unknown) (no (unknown) (unknown) BUN 10 (units (unkno wn) date) unknown) (unknown) (no (unknown) (unknown) BUN (units (unkno wn) date) unknown) (unknown) (no (unknown) (unknown) BUN/Creatinine (units (unknown) date) Ratio 14.9 unknown) (unknown) (no (unknown) (unknown) BUN/Creatinine (units (unknown) date) Ratio unknown) (unknown) (no (unknown) (unknown) Baseline (units (unknown) date) heart rate: 130 unknown) (unknown) (no (unknown) (unknown) Baso # (Auto) 0 (units (unknown) date) unknown) (unknown) (no (unknown) (unknown) Baso # (Auto) (units ( unknown) date) unknown) (unknown) (no (unknown) (unknown) Baso % (Auto) (units ( unknown) date) 0.2 unknown) (unknown) (no (unknown) (unknown) Baso % (Auto) (units ( unknown) date) unknown) (unknown) (no (unknown) (unknown) Betamethasone at (units (unknown) date) 16:13. 20mg of IV unknown) Labetalol was given at 17:26. Blood (unknown) (no (unknown) (unknown) Blood Type O (units (u nknown) date) Positive 03/16/22 unknown) 12:38 (unknown) (no (unknown) (unknown) Blood sugar was (units (unknown) date) checked and found unknown) to be 185, approximately 1.5hrs after a (unknown) (no (unknown) (unknown) Breastfeed Preg (units (unknown) date) Comp Name unknown) (unknown) (no (unknown) (unknown) CV: RRR, no (units (un known) date) murmurs unknown) (unknown) (no (unknown) (unknown) Calcium 10.2 (units (u nknown) date) unknown) (unknown) (no (unknown) (unknown) Calcium (units (unkno wn) date) unknown) (unknown) (no (unknown) (unknown) Carbon Dioxide (units (unknown) date) 22 unknown) (unknown) (no (unknown) (unknown) Carbon Dioxide (units (unknown) date) unknown) (unknown) (no (unknown) (unknown) Chief complaint: (units (unknown) date) 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 (unknown) (no (unknown) (unknown) Chloride 105 (units (u nknown) date) unknown) (unknown) (no (unknown) (unknown) Chloride (units (unkno wn) date) unknown) (unknown) (no (unknown) (unknown) Chronic cough (units ( unknown) date) (-2000) unknown) (unknown) (no (unknown) (unknown) Creatinine 0.67 (units (unknown) date) unknown) (unknown) (no (unknown) (unknown) Creatinine (units (unk nown) date) unknown) (unknown) (no (unknown) (unknown) Current Estimate (units (unknown) date) 09/16/22 LMP unknown) (Certain) 33w 6d (unknown) (no (unknown) (unknown) : 1990 (units (unknown) date) Acct:[id number] unknown) (unknown) (no (unknown) (unknown) Date Patient (units (u nknown) date) Seen: 08/04/22 unknown) (unknown) (no (unknown) (unknown) Date of Service: (units (unknown) date) 08/04/22 unknown) (unknown) (no (unknown) (unknown) Date of (units (unkno wn) date) admission: unknown) 08/04/22 (unknown) (no (unknown) (unknown) Date/Time (units (unkn own) date) unknown) (unknown) (no (unknown) (unknown) Dating criteria (units (unknown) date) OB: LMP confirmed unknown) by 1st trimester US (unknown) (no (unknown) (unknown) Del. Date (units (unkn own) date) GA/Weeks Labor unknown) Lgth Wt Sex Route Outcome Anesthesia Place (unknown) (no (unknown) (unknown) Delivery Date: (units (unknown) date) 12/10/14 Last unknown) Updated by: Bianca Arenas R.N. (unknown) (no (unknown) (unknown) Delivery Date: (units (unknown) date) 01/06/11 Last unknown) Updated by: Bianca Arenas R.N. (unknown) (no (unknown) (unknown) Delv (units (unkno wn) date) unknown) (unknown) (no (unknown) (unknown) Depression (units (unk nown) date) unknown) (unknown) (no (unknown) (unknown) CLAU Calculator (units (unknown) date) unknown) (unknown) (no (unknown) (unknown) Eos # (Auto) 100 (units (unknown) date) unknown) (unknown) (no (unknown) (unknown) Eos # (Auto) (units (u nknown) date) unknown) (unknown) (no (unknown) (unknown) Eos % (Auto) 1.2 (units (unknown) date) L unknown) (unknown) (no (unknown) (unknown) Eos % (Auto) (units (u nknown) date) unknown) (unknown) (no (unknown) (unknown) Estimated (units (unkn own) date) Delivery Date unknown) Method Current (unknown) (no (unknown) (unknown) Estimated GFR > (units (unknown) date) 60 unknown) (unknown) (no (unknown) (unknown) Estimated GFR (units ( unknown) date) unknown) (unknown) (no (unknown) (unknown) Estimated (units (unkn own) date) Gestational Age unknown) (weeks): 33w6d (unknown) (no (unknown) (unknown) Evaluation (units (unk nown) date) unknown) (unknown) (no (unknown) (unknown) Exam Narrative: (units (unknown) date) unknown) (unknown) (no (unknown) (unknown) Ext: no edema (units ( unknown) date) unknown) (unknown) (no (unknown) (unknown) External Labs (units ( unknown) date) unknown) (unknown) (no (unknown) (unknown) Family History (units (unknown) date) (Reviewed unknown) 07/30/22 @ 11:31 by Karina Gaytan DO) (unknown) (no (unknown) (unknown) Monitor (units ( unknown) date) Decelerations: unknown) Absent (unknown) (no (unknown) (unknown) monitor (units ( unknown) date) accelerations: unknown) Present (unknown) (no (unknown) (unknown) Gen: NAD, (units (unkn own) date) sitting unknown) comfortably in bed, appears well (unknown) (no (unknown) (unknown) Genetic Screens: (units (unknown) date) Quad screen: unknown) Normal (unknown) (no (unknown) (unknown) Globulin 3.4 (units (u nknown) date) unknown) (unknown) (no (unknown) (unknown) Globulin (units (unkno wn) date) unknown) (unknown) (no (unknown) (unknown) Glucose 79 (units (unk nown) date) unknown) (unknown) (no (unknown) (unknown) Glucose (units (unkno wn) date) unknown) (unknown) (no (unknown) (unknown) Grandfather (units (un known) date) Hypertension unknown) (unknown) (no (unknown) (unknown) Grandmother Type (units (unknown) date) 2 diabetes unknown) mellitus (unknown) (no (unknown) (unknown) : 3 (units (unk nown) date) unknown) (unknown) (no (unknown) (unknown) Hct 27.1 L (units (unk nown) date) unknown) (unknown) (no (unknown) (unknown) Hct (units (unkno wn) date) unknown) (unknown) (no (unknown) (unknown) Hematocrit 27.1 (units (unknown) date) % (36-46) L unknown) 08/04/22 23:59 (unknown) (no (unknown) (unknown) Hemoglobin 9.6 (units (unknown) date) g/dL (12.0-16.0) unknown) L 08/04/22 23:59 (unknown) (no (unknown) (unknown) Hepatitis B (units (un known) date) Surface Antigen unknown) Negative s/c (NEGATIVE) 03/16/22 12 (unknown) (no (unknown) (unknown) Hepatitis C (units (un known) date) Antibody Negative unknown) s/c (NEGATIVE) 03/16/22 12:38 (unknown) (no (unknown) (unknown) Hgb 9.6 L (units (unkn own) date) unknown) (unknown) (no (unknown) (unknown) Hgb (units (unkno wn) date) unknown) (unknown) (no (unknown) (unknown) History of (units (unk nown) date) Present Condition unknown) (unknown) (no (unknown) (unknown) Home Medications (units (unknown) date) and Allergies unknown) (unknown) (no (unknown) (unknown) Home Medications (units (unknown) date) unknown) (unknown) (no (unknown) (unknown) Hypertension (units (u nknown) date) unknown) (unknown) (no (unknown) (unknown) IH 3 months (units (un known) date) unknown) (unknown) (no (unknown) (unknown) IH attempted (units (u nknown) date) unknown) (unknown) (no (unknown) (unknown) ITCHING (units (unkno wn) date) unknown) (unknown) (no (unknown) (unknown) [facility] (units (unknown) date) [address] unknown) [place] [address] (unknown) (no (unknown) (unknown) Labetalol BID. (units (unknown) date) She failed her unknown) glucola, and 3hr GTT on 07/30 was abnormal. She (unknown) (no (unknown) (unknown) Laboratory (units (unk nown) date) Results - last 24 unknown) hr (unknown) (no (unknown) (unknown) Labs (units (unkno wn) date) unknown) (unknown) (no (unknown) (unknown) Labs: (units (unkno wn) date) unknown) (unknown) (no (unknown) (unknown) Last OB Lab (units (un known) date) Results: unknown) (unknown) (no (unknown) (unknown) Lymph # (Auto) (units (unknown) date) 900 L unknown) (unknown) (no (unknown) (unknown) Lymph # (Auto) (units (unknown) date) unknown) (unknown) (no (unknown) (unknown) Lymph % (Auto) (units (unknown) date) 12.8 L unknown) (unknown) (no (unknown) (unknown) Lymph % (Auto) (units (unknown) date) unknown) (unknown) (no (unknown) (unknown) MCH 32.8 (units (unkno wn) date) unknown) (unknown) (no (unknown) (unknown) MCH (units (unkno wn) date) unknown) (unknown) (no (unknown) (unknown) MCHC 35.3 (units (unkn own) date) unknown) (unknown) (no (unknown) (unknown) MCHC (units (unkno wn) date) unknown) (unknown) (no (unknown) (unknown) MCV 92.7 (units (unkno wn) date) unknown) (unknown) (no (unknown) (unknown) MCV (units (unkno wn) date) unknown) (unknown) (no (unknown) (unknown) Medical History (units (unknown) date) (Reviewed unknown) 07/30/22 @ 11:31 by Karina Gaytan DO) (unknown) (no (unknown) (unknown) Medical (units (unkno wn) date) complications OB: unknown) cardiovascular (chronic hypertension) (unknown) (no (unknown) (unknown) Medication (units (unk nown) date) Instructions unknown) Recorded Confirmed Type (unknown) (no (unknown) (unknown) Meds (units (unkno wn) date) unknown) (unknown) (no (unknown) (unknown) [place] # (Auto) (units ( unknown) date) 600 unknown) (unknown) (no (unknown) (unknown) [place] # (Auto) (units ( unknown) date) unknown) (unknown) (no (unknown) (unknown) [place] % (Auto) (units ( unknown) date) 8.6 unknown) (unknown) (no (unknown) (unknown) [place] % (Auto) (units ( unknown) date) unknown) (unknown) (no (unknown) (unknown) Mother Age: 51 (units (unknown) date) Stroke unknown) (unknown) (no (unknown) (unknown) Narrative (units (unkn own) date) unknown) (unknown) (no (unknown) (unknown) Narrative: (units (unk nown) date) unknown) (unknown) (no (unknown) (unknown) Neuro: no (units (unkn own) date) clonus, patellar unknown) reflexes 1 (unknown) (no (unknown) (unknown) Neut # (Auto) (units ( unknown) date) 5500 unknown) (unknown) (no (unknown) (unknown) Neut # (Auto) (units ( unknown) date) unknown) (unknown) (no (unknown) (unknown) Neut % (Auto) (units ( unknown) date) 77.2 H unknown) (unknown) (no (unknown) (unknown) Neut % (Auto) (units ( unknown) date) unknown) (unknown) (no (unknown) (unknown) OB Exam (units (unkno wn) date) unknown) (unknown) (no (unknown) (unknown) OB HPI (units (unkno wn) date) unknown) (unknown) (no (unknown) (unknown) [employer] History + (units (unknown) date) Physical unknown) (unknown) (no (unknown) (unknown) Objective (units (unkn own) date) unknown) (unknown) (no (unknown) (unknown) Obstetrical (units (un known) date) complications: unknown) gestational diabetes and preeclampsia (unknown) (no (unknown) (unknown) PFSH (units (unkno wn) date) unknown) (unknown) (no (unknown) (unknown) PO Labetalol (units (u nknown) date) 'bolus' to help unknown) maintain BPs in lower range. At the time of this (unknown) (no (unknown) (unknown) PUPP (pruritic (units (unknown) date) urticarial unknown) papules and plaques of ) (unknown) (no (unknown) (unknown) PUPPPS rash (units (un known) date) unknown) (unknown) (no (unknown) (unknown) Para: 2 (units (unkno wn) date) unknown) (unknown) (no (unknown) (unknown) Past Pregnancies (units (unknown) date) unknown) (unknown) (no (unknown) (unknown) Patient: (units (unkno wn) date) [place] unknown) MR#: [id number] (unknown) (no (unknown) (unknown) Plantar (units (unkno wn) date) fasciitis (-2015) unknown) (unknown) (no (unknown) (unknown) Plt Count 177 (units ( unknown) date) unknown) (unknown) (no (unknown) (unknown) Plt Count (units (unkn own) date) unknown) (unknown) (no (unknown) (unknown) Potassium 3.5 (units ( unknown) date) unknown) (unknown) (no (unknown) (unknown) Potassium (units (unkn own) date) unknown) (unknown) (no (unknown) (unknown) Preadmission (units (u nknown) date) Labs unknown) (unknown) (no (unknown) (unknown) care: (units (unknown) date) good care, unknown) initiated at week # (8), number of visits (8) and (unknown) (no (unknown) (unknown) Prior (units (unkno wn) date) (ies) unknown) (unknown) (no (unknown) (unknown) Protein/Creatini (units (unknown) date) n Ratio 0.36 unknown) (unknown) (no (unknown) (unknown) Protein/Creatini (units (unknown) date) n Ratio unknown) (unknown) (no (unknown) (unknown) [place] (units (unkn own) date) [place] was unknown) contacted, and agreed to accept the patient for transfer. (unknown) (no (unknown) (unknown) [place] (units (unk nown) date) [place], unknown) understanding the likely course will be completion of her (unknown) (no (unknown) (unknown) Provider: (units (unkn own) date) Rabia Gooden MD unknown) (unknown) (no (unknown) (unknown) Psoriasis (units (unkn own) date) unknown) (unknown) (no (unknown) (unknown) Pt is a 32yo (units (u nknown) date) at 33w6d unknown) with complicated by GDM (recently (unknown) (no (unknown) (unknown) Pt is a 32yo (units (u nknown) date) at 33w6d, unknown) complicated by chronic HTN, GDM (unknown (unknown) (no (unknown) (unknown) RBC 2.92 L (units (unk nown) date) unknown) (unknown) (no (unknown) (unknown) RBC (units (unkno wn) date) unknown) (unknown) (no (unknown) (unknown) RDW 15.0 H (units (unk nown) date) unknown) (unknown) (no (unknown) (unknown) RDW (units (unkno wn) date) unknown) (unknown) (no (unknown) (unknown) Resp: clear to (units (unknown) date) auscultation unknown) bilaterally (unknown) (no (unknown) (unknown) Result Diagrams: (units (unknown) date) unknown) (unknown) (no (unknown) (unknown) Rubella Antibody (units (unknown) date) 7.3 IU/mL (>15) L unknown) 03/16/22 12:38 (unknown) (no (unknown) (unknown) SARS-CoV-2 (PCR) (units (unknown) date) Negative unknown) (unknown) (no (unknown) (unknown) SARS-CoV-2 (PCR) (units (unknown) date) unknown) (unknown) (no (unknown) (unknown) Signed (units (unkno wn) date) By:<Electronicall unknown) y signed by Rabia Gooden MD> (unknown) (no (unknown) (unknown) Smoking Status: (units (unknown) date) Never smoker unknown) (unknown) (no (unknown) (unknown) Social History (units (unknown) date) (Reviewed unknown) 07/30/22 @ 11:31 by Karina Gaytan DO) (unknown) (no (unknown) (unknown) Sodium 137 (units (unk nown) date) unknown) (unknown) (no (unknown) (unknown) Sodium (units (unkno wn) date) unknown) (unknown) (no (unknown) (unknown) Status post (units (un known) date) appendectomy unknown) (-1993) (unknown) (no (unknown) (unknown) Status post (units (un known) date) delivery unknown) (01/06/11) (unknown) (no (unknown) (unknown) Status post (units (un known) date) delivery unknown) (unknown) (no (unknown) (unknown) Sulfa (units (unkno wn) date) (Sulfonamide unknown) Allergy Mild RASH Verified 07/15/22 09:55 (unknown) (no (unknown) (unknown) Surgical History (units (unknown) date) (Reviewed unknown) 07/30/22 @ 11:31 by Karina Gaytan DO) (unknown) (no (unknown) (unknown) The pts (units (unkno wn) date) was unknown) complicated by chronic hypertension, currently on 400mg (unknown) (no (unknown) (unknown) Time Patient (units (u nknown) date) Seen: 18:02 unknown) (unknown) (no (unknown) (unknown) Total Bilirubin (units (unknown) date) 0.4 unknown) (unknown) (no (unknown) (unknown) Total Bilirubin (units (unknown) date) unknown) (unknown) (no (unknown) (unknown) Total Protein (units ( unknown) date) 6.9 unknown) (unknown) (no (unknown) (unknown) Total Protein (units ( unknown) date) unknown) (unknown) (no (unknown) (unknown) Type(s) of (units (unk nown) date) exercise: none unknown) (unknown) (no (unknown) (unknown) U Random Total (units (unknown) date) Protein 18 H unknown) (unknown) (no (unknown) (unknown) U Random Total (units (unknown) date) Protein unknown) (unknown) (no (unknown) (unknown) Ultrasounds: (units (u nknown) date) normal 1st unknown) trimester US and normal mid trimester US (unknown) (no (unknown) (unknown) [facility] (units ( unknown) date) [place] was unknown) contacted for transfer due to prematurity. MgSO4 (unknown) (no (unknown) (unknown) Unknown (units (unkno wn) date) unknown) (unknown) (no (unknown) (unknown) Uric Acid 6.2 (units ( unknown) date) unknown) (unknown) (no (unknown) (unknown) Uric Acid (units (unkn own) date) unknown) (unknown) (no (unknown) (unknown) Urine Creatinine (units (unknown) date) 48.8 unknown) (unknown) (no (unknown) (unknown) Urine Creatinine (units (unknown) date) unknown) (unknown) (no (unknown) (unknown) Variability: (units (u nknown) date) Moderate (11-25) unknown) (unknown) (no (unknown) (unknown) Varicella-Zoster (units (unknown) date) IgG Antibody 339 unknown) index (Immune >165) 03/16/22 (unknown) (no (unknown) (unknown) WBC 7.1 (units (unkno wn) date) unknown) (unknown) (no (unknown) (unknown) WBC (units (unkno wn) date) unknown) (unknown) (no (unknown) (unknown) WG (units (unkno wn) date) unknown) (unknown) (no (unknown) (unknown) [Embedded Image (units (unknown) date) Not Available] unknown) (unknown) (no (unknown) (unknown) alcohol intake: (units (unknown) date) former unknown) (unknown) (no (unknown) (unknown) amoxicillin (units (un known) date) Allergy Mild Rash unknown) Verified 07/15/22 09:55 (unknown) (no (unknown) (unknown) and sent with (units ( unknown) date) the pts chart. unknown) (unknown) (no (unknown) (unknown) azithromycin (units (u nknown) date) Allergy Mild RASH unknown) AND Verified 07/15/22 09:55 (unknown) (no (unknown) (unknown) betamethasone (units ( unknown) date) and delivery via unknown) repeat after. The pt does desire (unknown) (no (unknown) (unknown) bilateral (units (unkn own) date) salpingectomy at unknown) the time of . Paperwork was signed today (unknown) (no (unknown) (unknown) caffeine: Yes (units ( unknown) date) unknown) (unknown) (no (unknown) (unknown) carbohydrate (units (u nknown) date) heavy meal. The unknown) pt received 10 units of insulin Lispro. Urine tox (unknown) (no (unknown) (unknown) carbon monox (units (u nknown) date) detector in home: unknown) Yes (unknown) (no (unknown) (unknown) chlorhexidine (units ( unknown) date) AdvReac unknown) Intermediate Blister Verified 07/15/22 09:55 (unknown) (no (unknown) (unknown) clobetasol 0.05 (units (unknown) date) % topical unknown) ointment 1 applic topical BID #45 grams 07/01/22 (unknown) (no (unknown) (unknown) control), and hx (units (unknown) date) of prior unknown) , who presented for NST for cHTN, now found (unknown) (no (unknown) (unknown) current (units (unkno wn) date) occupational unknown) exposures/hazards : No (unknown) (no (unknown) (unknown) daily servings (units (unknown) date) fruits/ve-1 unknown) (unknown) (no (unknown) (unknown) diagnosed, (units (unk nown) date) unknown control) unknown) and chronic HTN who presented for NST for cHTN. 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 (unknown) (no (unknown) (unknown) headache. She (units ( unknown) date) was given one PO unknown) dose of Nifedipine 30mg XR. Lab work returned (unknown) (no (unknown) (unknown) household (units (unkn own) date) members: unknown) significant other and children (unknown) (no (unknown) (unknown) housing: (units (unkno wn) date) apartment unknown) (unknown) (no (unknown) (unknown) hyperemesis 1st (units (unknown) date) trimester unknown) (unknown) (no (unknown) (unknown) labetalol 100 mg (units (unknown) date) tablet 400 mg PO unknown) BID #360 tabs 08/04/22 07/15/22 Rx (unknown) (no (unknown) (unknown) latex AdvReac (units ( unknown) date) Mild ITCHING unknown) Verified 07/15/22 09:55 (unknown) (no (unknown) (unknown) lives (units (unkno wn) date) independently: unknown) Yes (unknown) (no (unknown) (unknown) marital status: (units (unknown) date) unmarried,living unknown) together (unknown) (no (unknown) (unknown) nifedipine 30 mg (units (unknown) date) tablet,extended unknown) 30 mg PO DAILY #30 tabs 08/04/22 Rx (unknown) (no (unknown) (unknown) note, BPs (units (unkn own) date) remained out of unknown) severe range after this administration. Dr Roberts at (unknown) (no (unknown) (unknown) number of (units (unkn own) date) children: 2 unknown) (unknown) (no (unknown) (unknown) occupational (units (u nknown) date) status: employed unknown) (unknown) (no (unknown) (unknown) other Camron (units (un known) date) unknown) (unknown) (no (unknown) (unknown) other Jeaneth (units (un known) date) unknown) (unknown) (no (unknown) (unknown) pets and (units (unkno wn) date) animals: Yes (1 unknown) cat (pt is not managing litter box)) (unknown) (no (unknown) (unknown) pounds weight (units ( unknown) date) gain (10) unknown) (unknown) (no (unknown) (unknown) prenat.vits,miguel, (units (unknown) date) pfo-wbie-mohpl 1 unknown) tab PO DAILY 01/27/22 07/15/22 History (unknown) (no (unknown) (unknown) pressures (units (unkn own) date) initially unknown) improved with this, but now rising again. Dr Avila at the (unknown) (no (unknown) (unknown) release 24 hr (units ( unknown) date) unknown) (unknown) (no (unknown) (unknown) reports being (units ( unknown) date) asymptomatic unknown) without swelling, RUQ pain, vision changes, or (unknown) (no (unknown) (unknown) seatbelt use: (units ( unknown) date) always unknown) (unknown) (no (unknown) (unknown) second hand (units (un known) date) exposure: No unknown) (unknown) (no (unknown) (unknown) special fly (units ( unknown) date) needs: No unknown) (unknown) (no (unknown) (unknown) substance use (units ( unknown) date) type: marijuana unknown) (unknown) (no (unknown) (unknown) to be initiated, (units (unknown) date) will give 4g unknown) bolus followed by 2g/hr. Also recommended 600mg (unknown) (no (unknown) (unknown) to have (units (unkno wn) date) pre-eclampsia unknown) with severe features. Pt received her first dose of (unknown) (no (unknown) (unknown) was ordered, (units (u nknown) date) pending at the unknown) time of this note. The pt consented to transfer to (unknown) (no (unknown) (unknown) was reassuring, (units (unknown) date) however pts BPs unknown) were elevated to the 140-150s/80-90s. The pt (unknown) (no (unknown) (unknown) water heater (units (u nknown) date) temp set < 120 unknown) deg: Yes (Will check and adjust if needed) (unknown) (no (unknown) (unknown) well-balanced (units ( unknown) date) diet: about half unknown) the time (unknown) (no (unknown) (unknown) without evidence (units (unknown) date) of HELLP, however unknown) did have elevated protein/creatinin e ratio (unknown) (no (unknown) (unknown) working smoke (units ( unknown) date) detector in home: unknown) Yes Result panel 20 (unknown) (no (unknown) (unknown) (no value) (units (unk nown) date) unknown) (unknown) (no (unknown) (unknown) (+0 oz) 146/80 (units (unknown) date) unknown) (unknown) (no (unknown) (unknown) (+10 lb) 120/82 (units (unknown) date) unknown) (unknown) (no (unknown) (unknown) (+10 lb) 140/86 (units (unknown) date) unknown) (unknown) (no (unknown) (unknown) (+10 lb) 140/90 (units (unknown) date) unknown) (unknown) (no (unknown) (unknown) (+3 lb) 160/116 (units (unknown) date) unknown) (unknown) (no (unknown) (unknown) (+4 oz) 126/70 (units (unknown) date) unknown) (unknown) (no (unknown) (unknown) (+6 lb) 134/84 (units (unknown) date) unknown) (unknown) (no (unknown) (unknown) (+9 lb) 136/90 (units (unknown) date) unknown) (unknown) (no (unknown) (unknown) Genetic (units (unkn own) date) Screening/Teratol unknown) ogy Counseling - Includes patient, baby's father, or (unknown) (no (unknown) (unknown) -?-?-?-?-?-?-?-? (units (unknown) date) -?-?-?-? unknown) (unknown) (no (unknown) (unknown) [id number] (units (unkno wn) date) unknown) (unknown) (no (unknown) (unknown) 08/26/22 (units (unkno wn) date) unknown) (unknown) (no (unknown) (unknown) 09/02/22 (units (unkno wn) date) unknown) (unknown) (no (unknown) (unknown) 12/10/14 39 8 lb (units (unknown) date) 3 oz Female unknown) live - full term (unknown) (no (unknown) (unknown) 01/06/11 41 1 9 (units (unknown) date) lb 1 oz Male unknown) live - full term (unknown) (no (unknown) (unknown) 02/10/22 (units (unkno wn) date) unknown) (unknown) (no (unknown) (unknown) 03/16/22 (units (unkno wn) date) unknown) (unknown) (no (unknown) (unknown) 04/15/22 (units (unkno wn) date) unknown) (unknown) (no (unknown) (unknown) 05/13/22 (units (unkno wn) date) unknown) (unknown) (no (unknown) (unknown) 06/17/22 (units (unkno wn) date) unknown) (unknown) (no (unknown) (unknown) 07/01/22 (units (unkno wn) date) unknown) (unknown) (no (unknown) (unknown) 07/15/22 (units (unkno wn) date) unknown) (unknown) (no (unknown) (unknown) 07/29/22 (units (unkno wn) date) unknown) (unknown) (no (unknown) (unknown) 13w 5d 198 lb 4 (units (unknown) date) oz unknown) (unknown) (no (unknown) (unknown) 152/116 (units (unkno wn) date) unknown) (unknown) (no (unknown) (unknown) 18w 0d 198 lb (units ( unknown) date) unknown) (unknown) (no (unknown) (unknown) 2+ 4wks (units (unkno wn) date) unknown) (unknown) (no (unknown) (unknown) 22w 0d 204 lb (units ( unknown) date) unknown) (unknown) (no (unknown) (unknown) 27w 0d 207 lb (units ( unknown) date) unknown) (unknown) (no (unknown) (unknown) 29w 0d 208 lb (units ( unknown) date) unknown) (unknown) (no (unknown) (unknown) 31w 0d 208 lb (units ( unknown) date) unknown) (unknown) (no (unknown) (unknown) 33w 0d 208 lb (units ( unknown) date) unknown) (unknown) (no (unknown) (unknown) 38w 0d (units (unkno wn) date) unknown) (unknown) (no (unknown) (unknown) 4wks (units (unkno wn) date) unknown) (unknown) (no (unknown) (unknown) 02/10, 300mg BID (units (unknown) date) 06/17. Baseline unknown) pre-eclampsia labs ordered. Will need qtri (unknown) (no (unknown) (unknown) 8w 6d 201 lb (units (u nknown) date) unknown) (unknown) (no (unknown) (unknown) Abdomen with a (units (unknown) date) very itchy rash. unknown) Nothing on her hands and feet. Most (unknown) (no (unknown) (unknown) Abnormal lab (units (u nknown) date) values 1st unknown) trimester: discussed (unknown) (no (unknown) (unknown) Abnormal lab (units (u nknown) date) values 3rd unknown) trimester: discussed (unknown) (no (unknown) (unknown) Add'l Plan (units (unk nown) date) Details unknown) (unknown) (no (unknown) (unknown) Age/Sex: 32 / F (units (unknown) date) Date of Service: unknown) (unknown) (no (unknown) (unknown) Allergies (units (unkn own) date) unknown) (unknown) (no (unknown) (unknown) [facility] (units (unknown) date) Medicine unknown) (unknown) (no (unknown) (unknown) [place], [place] (units ( unknown) date) [id number] unknown) (unknown) (no (unknown) (unknown) Anatomy scan (units (u nknown) date) normal, 88th unknown) percentile (unknown) (no (unknown) (unknown) Anatomy u/s (units (un known) date) ordered unknown) (unknown) (no (unknown) (unknown) Anesthesia (units (unk nown) date) preference: Other unknown) (spinal for c/s) (unknown) (no (unknown) (unknown) Anesthesia/Analg (units (unknown) date) esia plans: unknown) discussed (unknown) (no (unknown) (unknown) Aneuploidy (units (unk nown) date) Screening unknown) Offered: Accepted (unknown) (no (unknown) (unknown) Antibiotic Eye (units (unknown) date) Drops-: Yes unknown) (unknown) (no (unknown) (unknown) Anticipated (units (un known) date) course of unknown) care: discussed (unknown) (no (unknown) (unknown) Assessment and (units (unknown) date) Plan unknown) (unknown) (no (unknown) (unknown) Asymptomatic. (units ( unknown) date) Vision changes unknown) improved with iron supplement. (unknown) (no (unknown) (unknown) Attending Dr: (units ( unknown) date) Rabia Gooden MD unknown) (unknown) (no (unknown) (unknown) BPs at home (units (un known) date) diastolic 90-93, unknown) systolic in 130s. No headaches. Pt is (unknown) (no (unknown) (unknown) BPs at home have (units (unknown) date) been 130/80-90s. unknown) Increase Labetalol to 400mg BID. (unknown) (no (unknown) (unknown) BPs at home have (units (unknown) date) been in normal unknown) range. (unknown) (no (unknown) (unknown) BPs have been (units ( unknown) date) consistently in unknown) good range, 110s/60s in general. (unknown) (no (unknown) (unknown) (units (unkno wn) date) Plan/Preferences unknown) (unknown) (no (unknown) (unknown) Planning (units (unknown) date) unknown) (unknown) (no (unknown) (unknown) Blister (units (unkno wn) date) unknown) (unknown) (no (unknown) (unknown) Blood (units (unkno wn) date) transfusions?: unknown) yes (unknown) (no (unknown) (unknown) Breastfeed Preg (units (unknown) date) Comp Name unknown) (unknown) (no (unknown) (unknown) Checking BPs at (units (unknown) date) home - before unknown) medication BPs usually 140s/80s. After (unknown) (no (unknown) (unknown) Chronic HTN - (units ( unknown) date) Switched to unknown) Labetalol with . Increased to 200mg BID (unknown) (no (unknown) (unknown) Chronic HTN (units (un known) date) started January unknown) 2020, on Lisinopril. Added Carvedilol. Switched (unknown) (no (unknown) (unknown) Chronic cough (units ( unknown) date) (-2000) unknown) (unknown) (no (unknown) (unknown) Current Estimate (units (unknown) date) 09/16/22 LMP unknown) (Certain) 38w 0d (unknown) (no (unknown) (unknown) Current (units (unkno wn) date) History unknown) (unknown) (no (unknown) (unknown) : 1990 (units (unknown) date) Acct:[id number] unknown) (unknown) (no (unknown) (unknown) Date of positive (units (unknown) date) home unknown) test: 12/30/21 (unknown) (no (unknown) (unknown) Date (units (unkno wn) date) unknown) (unknown) (no (unknown) (unknown) Dating u/s (units (unk nown) date) concordant with unknown) LMP, keep LCAU 09/16/22. (unknown) (no (unknown) (unknown) Del. Date (units (unkn own) date) GA/Weeks Labor unknown) Lgth Wt Sex Route Outcome Anesthesia Place (unknown) (no (unknown) (unknown) Delayed cord (units (u nknown) date) clamping: Yes unknown) (unknown) (no (unknown) (unknown) Delivery Date: (units (unknown) date) 12/10/14 Last unknown) Updated by: Bianca Arenas R.N. (unknown) (no (unknown) (unknown) Delivery Date: (units (unknown) date) 01/06/11 Last unknown) Updated by: Bianca Arenas R.N. (unknown) (no (unknown) (unknown) Delv (units (unkno wn) date) unknown) (unknown) (no (unknown) (unknown) Denies Congenital (units (unknown) date) Heart Defect, unknown) Denies Down Syndrome, Denies Muscular Dystrophy, (unknown) (no (unknown) (unknown) Denies Maternal (units (unknown) date) Metabolic unknown) Disorder (EG,TYPE 1 Diabetes, PKU), Denies Patient or (unknown) (no (unknown) (unknown) Denies Neural (units ( unknown) date) Tube Defect unknown) (Meningomyelocele , Spina Bifida, or Anencephaly), (unknown) (no (unknown) (unknown) Denies Sickle (units ( unknown) date) Cell Disease or unknown) Trait (), Denies Hemophilia or other blood (unknown) (no (unknown) (unknown) Denies Willie-Sachs (units (unknown) date) (Ashkenazi unknown) Yarsani, Cajun, [place] Romanian), Denies Fred (unknown) (no (unknown) (unknown) Denies other (units (u nknown) date) unknown) (unknown) (no (unknown) (unknown) Denies over the (units (unknown) date) counter unknown) medications, Denies alcohol, Denies illicit drugs and (unknown) (no (unknown) (unknown) Depression (units (unk nown) date) unknown) (unknown) (no (unknown) (unknown) Depression: (units (un known) date) discussed unknown) (unknown) (no (unknown) (unknown) Dept at (units (unkno wn) date) . unknown) (unknown) (no (unknown) (unknown) Desires quad (units (u nknown) date) screen for unknown) genetic testing. (unknown) (no (unknown) (unknown) Diet and (units (unkno wn) date) Exercise unknown) (unknown) (no (unknown) (unknown) Disease (units (unkno wn) date) (Ashkenazi unknown) Yarsani), Denies Familial Dysautonomia (Ashkenazi Yarsani), (unknown) (no (unknown) (unknown) Documented By: (units (unknown) date) Rabia Gooden MD unknown) 09/02/22 1301 (unknown) (no (unknown) (unknown) Draft (units (unkno wn) date) unknown) (unknown) (no (unknown) (unknown) CLAU Calculator (units (unknown) date) unknown) (unknown) (no (unknown) (unknown) EGA Weight BP (units ( unknown) date) UGlucose unknown) (unknown) (no (unknown) (unknown) Estimated (units (unkn own) date) Delivery Date unknown) Method Current (unknown) (no (unknown) (unknown) Exercise and (units (u nknown) date) activity, unknown) work/environmenta l/hazards, Sexual activity, X-ray (unknown) (no (unknown) (unknown) FHT 167. Normal (units (unknown) date) adnexa and unknown) ovaries. (unknown) (no (unknown) (unknown) Failed glucola, (units (unknown) date) 3hr GTT needs to unknown) be scheduled, will schedule today. (unknown) (no (unknown) (unknown) Family History (units (unknown) date) (Reviewed unknown) 07/30/22 @ 11:31 by Karina Gaytan DO) (unknown) (no (unknown) (unknown) Father of Baby: (units (unknown) date) same unknown) (unknown) (no (unknown) (unknown) movement (units (unknown) date) monitoring: unknown) discussed (unknown) (no (unknown) (unknown) First Trimester (units (unknown) date) Education unknown) Checklist (unknown) (no (unknown) (unknown) GERD getting (units (u nknown) date) worse. Tums unknown) doesn't help. - Discussed Pepcid (unknown) (no (unknown) (unknown) Genetic (units (unkno wn) date) Screening + unknown) Counseling (unknown) (no (unknown) (unknown) Genetic (units (unkno wn) date) Screening unknown) (unknown) (no (unknown) (unknown) [facility] requested (unknown) (no (unknown) (unknown) Glucola ordered (units (unknown) date) unknown) (unknown) (no (unknown) (unknown) Grandfather (units (un known) date) Hypertension unknown) (unknown) (no (unknown) (unknown) Grandmother Type (units (unknown) date) 2 diabetes unknown) mellitus (unknown) (no (unknown) (unknown) 3 (units (unkn own) date) Multiple births unknown) (unknown) (no (unknown) (unknown) Growth u/s (units (unk nown) date) scheduled 08/10. unknown) (unknown) (no (unknown) (unknown) Growth (units (unkno wn) date) ultrasound unknown) ordered today (unknown) (no (unknown) (unknown) HIV risk (units (unkno wn) date) evaluation: low unknown) risk (unknown) (no (unknown) (unknown) Health Center (units ( unknown) date) Education unknown) (unknown) (no (unknown) (unknown) Health center (units ( unknown) date) information: unknown) nature of practice discussed, personnel (unknown) (no (unknown) (unknown) Hep B-Infant: (units ( unknown) date) Yes unknown) (unknown) (no (unknown) (unknown) Hepatitis C risk (units (unknown) date) evaluation: low unknown) risk (unknown) (no (unknown) (unknown) High risk (units (unkn own) date) type/reason(s): unknown) chronic HTN (unknown) (no (unknown) (unknown) History of (units (unk nown) date) Hepatitis B: No unknown) (unknown) (no (unknown) (unknown) History of (units (unk nown) date) Hepatitis C: No unknown) (unknown) (no (unknown) (unknown) [facility] (units (u [facility]known) [facility]) unknown) (unknown) (no (unknown) (unknown) [facility] (units (u nknown) date) Chorea, Denies unknown) Other inherited genetic or chromosomal disorder, (unknown) (no (unknown) (unknown) Hx # (units (u nknown) date) Pregnancies unknown) Elective abortions (unknown) (no (unknown) (unknown) Hx # Term (units (unkn own) date) Pregnancies 2 unknown) Ectopic pregnancies (unknown) (no (unknown) (unknown) Hx of prior (units (un known) date) unknown) (unknown) (no (unknown) (unknown) Hypertension (units (u nknown) date) unknown) (unknown) (no (unknown) (unknown) [facility] 3 months (units (un known) date) unknown) (unknown) (no (unknown) (unknown) IH attempted (units (u nknown) date) unknown) (unknown) (no (unknown) (unknown) ITCHING (units (unkno wn) date) unknown) (unknown) (no (unknown) (unknown) Increased foot (units (unknown) date) swelling. No unknown) headaches, vision changes, RUQ pain. (unknown) (no (unknown) (unknown) will be (units (unknown) date) adopted?: no unknown) (unknown) (no (unknown) (unknown) Infection (units (unkn own) date) History unknown) (unknown) (no (unknown) (unknown) Infectious (units (unk nown) date) Disease Education unknown) (unknown) (no (unknown) (unknown) Infectious (units (unk nown) date) disease exposure: unknown) chicken pox immunity discussed, hepatitis risk (unknown) (no (unknown) (unknown) Initial Weight: (units (unknown) date) 198 lb unknown) (unknown) (no (unknown) (unknown) Initials (units (unkno wn) date) unknown) (unknown) (no (unknown) (unknown) Intake (units (unkno wn) date) unknown) (unknown) (no (unknown) (unknown) FELICITY (units (unkno wn) date) unknown) (unknown) (no (unknown) (unknown) Legs have been (units (unknown) date) swelling unknown) slightly. She is wearing compression socks, (unknown) (no (unknown) (unknown) Live with (units (unkn own) date) someone with TB unknown) or exposed to TB: No (unknown) (no (unknown) (unknown) Loc: [facility] (units (unkno wn) date) unknown) (unknown) (no (unknown) (unknown) Marital status: (units (unknown) date) unmarried,living unknown) together (unknown) (no (unknown) (unknown) Medical History (units (unknown) date) (Reviewed unknown) 07/30/22 @ 11:31 by Karina Gaytan DO) (unknown) (no (unknown) (unknown) Mild (units (unkno wn) date) intermittent unknown) headaches. Can tell when BP is higher due to vision (unknown) (no (unknown) (unknown) Mother Age: 51 (units (unknown) date) Stroke unknown) (unknown) (no (unknown) (unknown) NSTs have (units (unkn own) date) started, unknown) reassuring thus far. (unknown) (no (unknown) (unknown) NSTs to start (units ( unknown) date) next week. Growth unknown) scan ordered. (unknown) (no (unknown) (unknown) Nausea is (units (unkn own) date) improved, unknown) tolerable now. (unknown) (no (unknown) (unknown) No no 150 absent (units (unknown) date) anatomy ordered unknown) 4wks (unknown) (no (unknown) (unknown) No no 167 absent (units (unknown) date) dating u/s 4wks unknown) (unknown) (no (unknown) (unknown) Notes (units (unkno wn) date) unknown) (unknown) (no (unknown) (unknown) Number of Living (units (unknown) date) Children 2 unknown) (unknown) (no (unknown) (unknown) Number of (units (unkn own) date) fetuses:: Single unknown) (unknown) (no (unknown) (unknown) Nutrition and (units ( unknown) date) weight gain unknown) counseling: special diet: discussed (unknown) (no (unknown) (unknown) OB Office Visit (units (unknown) date) unknown) (unknown) (no (unknown) (unknown) OB Visit Log (units (u nknown) date) unknown) (unknown) (no (unknown) (unknown) On control (units (unknown) date) at conception?: unknown) Yes (OCP, stopped on learning of ) (unknown) (no (unknown) (unknown) PFSH (units (unkno wn) date) unknown) (unknown) (no (unknown) (unknown) 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 (unknown) (no (unknown) (unknown) PUPP (pruritic (units (unknown) date) urticarial unknown) papules and plaques of ) (unknown) (no (unknown) (unknown) PUPPPS rash (units (un known) date) unknown) (unknown) (no (unknown) (unknown) Para 2 (units (unkno wn) date) Spontaneous unknown) abortions (unknown) (no (unknown) (unknown) Partner history (units (unknown) date) of STD: denies hx unknown) (unknown) (no (unknown) (unknown) Partner history (units (unknown) date) of genital unknown) herpes: No (unknown) (no (unknown) (unknown) Partner: Lloyd (units (unknown) date) [place] unknown) (unknown) (no (unknown) (unknown) Past Pregnancies (units (unknown) date) unknown) (unknown) (no (unknown) (unknown) Patient's age 35 (units (unknown) date) years or older as unknown) of estimated date of delivery: No (unknown) (no (unknown) (unknown) Patient: (units (unkno wn) date) [place] unknown) MR#: [id number] (unknown) (no (unknown) (unknown) 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 Will be unknown) starting job at [employer] (unknown) (no (unknown) (unknown) Plan to obtain (units (unknown) date) baseline labs at unknown) next appt. Pt with increasing swelling (unknown) (no (unknown) (unknown) Plantar (units (unkno wn) date) fasciitis (-2016) unknown) (unknown) (no (unknown) (unknown) (units (unkn own) date) History unknown) (unknown) (no (unknown) (unknown) type:: (units (unknown) date) High Risk Other unknown) (unknown) (no (unknown) (unknown) (units (unkno wn) date) Education unknown) (unknown) (no (unknown) (unknown) Initial (units (unknown) date) Assessment unknown) (unknown) (no (unknown) (unknown) (units (unkno wn) date) Specific unknown) Issues/Plans (unknown) (no (unknown) (unknown) (units (unkno wn) date) Testing: unknown) discussed (unknown) (no (unknown) (unknown) Visit (units (unknown) date) unknown) (unknown) (no (unknown) (unknown) (units (unkno wn) date) education packet: unknown) Child education/plan, symptoms, (unknown) (no (unknown) (unknown) Prilosec. (units (unkn own) date) unknown) (unknown) (no (unknown) (unknown) Primary Care (units (u nknown) date) Provider: unknown) Sadie (unknown) (no (unknown) (unknown) Primary Ob (units (unk nown) date) Provider: unknown) Rabia Gooden (unknown) (no (unknown) (unknown) Prior (units (unkno wn) date) GBS-Infected unknown) child: No (unknown) (no (unknown) (unknown) Providers (units (unkn own) date) unknown) (unknown) (no (unknown) (unknown) Psoriasis (units (unkn own) date) unknown) (unknown) (no (unknown) (unknown) Pt did not (units (unk nown) date) complete quad unknown) screen (unknown) (no (unknown) (unknown) Pt has been (units (un known) date) feeling somewhat unknown) winded. No swelling. (unknown) (no (unknown) (unknown) Pt hasn't been (units (unknown) date) checking BP at unknown) home, but when she did check was 130/80. (unknown) (no (unknown) (unknown) Pt is taking (units (u nknown) date) Tums and unknown) Prilosec, GERD still severe. Discussed BID dosing (unknown) (no (unknown) (unknown) Pt with ongoing (units (unknown) date) LE swelling. unknown) Primarily left foot. No pain in (unknown) (no (unknown) (unknown) Pt with (units (unkno wn) date) significant unknown) nausea. Manageable thus far. Declines need for (unknown) (no (unknown) (unknown) Quad screen (units (un known) date) ordered today. unknown) Anatomy scheduled. 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 unknown) Growth u/s scheduled for later today. (unknown) (no (unknown) (unknown) Reminded to (units (un known) date) complete lab work unknown) (unknown) (no (unknown) (unknown) Repeat BP today (units (unknown) date) 132/86. No unknown) headaches, vision changes, RUQ pain, edema. Request (unknown) (no (unknown) (unknown) Rx Clobetasol to (units (unknown) date) help with unknown) itching. (unknown) (no (unknown) (unknown) Safety (units (unkno wn) date) unknown) (unknown) (no (unknown) (unknown) Signed By: (units (unk nown) date) unknown) (unknown) (no (unknown) (unknown) Smoking Status: (units (unknown) date) Never smoker unknown) (unknown) (no (unknown) (unknown) Social History (units (unknown) date) unknown) (unknown) (no (unknown) (unknown) Status post (units (un known) date) appendectomy unknown) () (unknown) (no (unknown) (unknown) Status post (units (un known) date) delivery unknown) (01/06/11) (unknown) (no (unknown) (unknown) Status post (units (un known) date) delivery unknown) (unknown) (no (unknown) (unknown) Sulfa (units (unkno wn) date) (Sulfonamide unknown) Antibiotics) Allergy (Mild, Verified 07/15/22 09:55) (unknown) (no (unknown) (unknown) Support (units (unkno wn) date) Person(s):: unknown) Lloyd (unknown) (no (unknown) (unknown) Surgery date to (units (unknown) date) be requested for unknown) 09/09/22. Packet sent to dental scheduler. (unknown) (no (unknown) (unknown) Surgical History (units (unknown) date) (Reviewed unknown) 07/30/22 @ 11:31 by Karina Gaytan DO) (unknown) (no (unknown) (unknown) Surrogate (units (unkn own) date) ?: no unknown) (unknown) (no (unknown) (unknown) Symptoms since (units (unknown) date) LMP: Reports unknown) nausea, breast tenderness, urinary frequency, (unknown) (no (unknown) (unknown) Teratogen (units (unkn own) date) Exposures since unknown) LMP/Conception: Denies prescription medications, (unknown) (no (unknown) (unknown) Testing (units (unkno wn) date) Education unknown) (unknown) (no (unknown) (unknown) Testing (units (unkno wn) date) education unknown) completed: Spina bifida testing and Cell Free DNA (unknown) (no (unknown) (unknown) Third Trimester (units (unknown) date) Education unknown) Checklist (unknown) (no (unknown) (unknown) This note may (units ( unknown) date) have been all or unknown) partially generated using voice recognition (unknown) (no (unknown) (unknown) Tobacco + (units (unkn own) date) Substance Use unknown) (unknown) (no (unknown) (unknown) Tobacco Status (units (unknown) date) unknown) (unknown) (no (unknown) (unknown) Type(s) of (units (unk nown) date) exercise: none unknown) (unknown) (no (unknown) (unknown) UProtein Movement (units (unknown) date) PreLabor FHR Fndl unknown) Ht Pres Edema Cerv Exam US/Comment Next Appt (unknown) (no (unknown) (unknown) Ultrasound (units (unk nown) date) Details:: Dating unknown) u/s 02/10/22 - Single IUP. CRL consistent with 8w1d. (unknown) (no (unknown) (unknown) Ultrasound (units (unk nown) date) unknown) (unknown) (no (unknown) (unknown) Varicella/chicke (units (unknown) date) n pox status: unknown) previous disease (unknown) (no (unknown) (unknown) Visit Date: (units (un known) date) 02/10/22 Last unknown) Updated by: Rabia Gooden MD (unknown) (no (unknown) (unknown) Visit Date: (units (un known) date) 03/16/22 Last unknown) Updated by: Rabia Gooden MD (unknown) (no (unknown) (unknown) Visit Date: (units (un known) date) 04/15/22 Last unknown) Updated by: Rabia Gooden MD (unknown) (no (unknown) (unknown) Visit Date: (units (un known) date) 05/13/22 Last unknown) Updated by: Rabia Gooden MD (unknown) (no (unknown) (unknown) Visit Date: (units (un known) date) 06/17/22 Last unknown) Updated by: Rabia Gooden MD (unknown) (no (unknown) (unknown) Visit Date: (units (un known) date) 07/01/22 Last unknown) Updated by: Rabia Gooden MD (unknown) (no (unknown) (unknown) Visit Date: (units (un known) date) 07/15/22 Last unknown) Updated by: Rabia Gooden MD (unknown) (no (unknown) (unknown) Visit Date: (units (un known) date) 07/29/22 Last unknown) Updated by: Rabia Gooden MD (unknown) (no (unknown) (unknown) Visit Reasons: (units (unknown) date) post C section unknown) f/u (unknown) (no (unknown) (unknown) Vitamin (units (unkno wn) date) K-: Yes unknown) (unknown) (no (unknown) (unknown) Vitamins and (units (u nknown) date) iron, Diet and unknown) weight gain, Fish and mercury intake, Caffeine use, (unknown) (no (unknown) (unknown) WG (units (unkno wn) date) unknown) (unknown) (no (unknown) (unknown) 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 works at (unknown) (no (unknown) (unknown) Yes no 130 27 (units ( unknown) date) absent glucola unknown) ordered 2 (unknown) (no (unknown) (unknown) Yes no 132 28 (units ( unknown) date) absent 2wks unknown) (unknown) (no (unknown) (unknown) Yes no 134 31 (units ( unknown) date) absent 2wks unknown) (unknown) (no (unknown) (unknown) Yes no 140 30 (units ( unknown) date) absent 2wks unknown) (unknown) (no (unknown) (unknown) Yes no 144 21 (units ( unknown) date) abse unknown) (unknown) (no (unknown) (unknown) Yes yes 140 (units (un known) date) absent unknown) (unknown) (no (unknown) (unknown) Zika virus (units (unk nown) date) exposure: No unknown) (unknown) (no (unknown) (unknown) alcohol intake: (units (unknown) date) former unknown) (unknown) (no (unknown) (unknown) amoxicillin (units (un known) date) Allergy (Mild, unknown) Verified 07/15/22 09:55) (unknown) (no (unknown) (unknown) anyone in either (units (unknown) date) family with: unknown) (unknown) (no (unknown) (unknown) 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 (units (unk nown) date) unknown) (unknown) (no (unknown) (unknown) azithromycin (units (u nknown) date) Allergy (Mild, unknown) Verified 07/15/22 09:55) (unknown) (no (unknown) (unknown) baby's father (units ( unknown) date) had a child with unknown) defects not listed above and Denies Other (unknown) (no (unknown) (unknown) caffeine: Yes (units ( unknown) date) unknown) (unknown) (no (unknown) (unknown) carbon monox (units (u nknown) date) detector in home: unknown) Yes (unknown) (no (unknown) (unknown) changes. Mild (units ( unknown) date) headaches - unknown) usually relieved quickly, stressed at work. No RUQ (unknown) (no (unknown) (unknown) changes. Mother (units (unknown) date) with unknown) due to severe pre-eclampsia at 23wks. (unknown) (no (unknown) (unknown) chlorhexidine (units ( unknown) date) Adverse Reaction unknown) (Intermediate, Verified 07/15/22 09:55) (unknown) (no (unknown) (unknown) consistent with (units (unknown) date) PUPPS, but bile unknown) acids ordered to ensure no cholestasis as well. (unknown) (no (unknown) (unknown) current (units (unkno wn) date) occupational unknown) exposures/hazards : No (unknown) (no (unknown) (unknown) daily servings (units (unknown) date) fruits/ve-1 unknown) (unknown) (no (unknown) (unknown) described, visit (units (unknown) date) schedule unknown) reviewed, ultrasounds policy reviewed, coverage 24 (unknown) (no (unknown) (unknown) discussed, (units (unk nown) date) tuberculosis unknown) exposure discussed, CMV discussed, Toxoplasmosis (unknown) (no (unknown) (unknown) disorders, (units (unk nown) date) Denies Cystic unknown) Fibrosis, Denies Mental Retardation/Autis m, Denies (unknown) (no (unknown) (unknown) do you feel safe (units (unknown) date) at home: Yes unknown) (unknown) (no (unknown) (unknown) during the past (units (unknown) date) year weight has: unknown) remained stable (unknown) (no (unknown) (unknown) eclampsia - (units (un known) date) diagnosed 08/04 unknown) at 33w6d. Started Nifedipine 30mg XR. Plan on (unknown) (no (unknown) (unknown) education level: (units (unknown) date) other unknown) (unknown) (no (unknown) (unknown) exposure, (units (unkn own) date) Medication use, unknown) Sauna/hot tub use, Dental care, Travel and Influenza (unknown) (no (unknown) (unknown) feet/calves. (units (u nknown) date) Discussed unknown) elevation, water, decreased salt intake. (unknown) (no (unknown) (unknown) fire (units (unkno wn) date) extinguisher in unknown) home: Yes (unknown) (no (unknown) (unknown) firearms in (units (un known) date) home: No unknown) (unknown) (no (unknown) (unknown) have occurred. (units (unknown) date) If there are any unknown) questions, please contact the Medical Records (unknown) (no (unknown) (unknown) hours a day and (units (unknown) date) participation of unknown) father in care and office visits (unknown) (no (unknown) (unknown) household (units (unkn own) date) members: unknown) significant other and children (unknown) (no (unknown) (unknown) housing: (units (unkno wn) date) apartment unknown) (unknown) (no (unknown) (unknown) hyperemesis 1st (units (unknown) date) trimester unknown) (unknown) (no (unknown) (unknown) irritability, (units ( unknown) date) bloating and unknown) other (unknown) (no (unknown) (unknown) labs today (units (unk nown) date) unknown) (unknown) (no (unknown) (unknown) latex Adverse (units ( unknown) date) Reaction (Mild, unknown) Verified 07/15/22 09:55) (unknown) (no (unknown) (unknown) lives (units (unkno wn) date) independently: unknown) Yes (unknown) (no (unknown) (unknown) marital status: (units (unknown) date) unmarried,living unknown) together (unknown) (no (unknown) (unknown) may occur. (units (unk nown) date) Occasional unknown) wrong-word or 'sound-alike' substitutions may have (unknown) (no (unknown) (unknown) medication (units (unk nown) date) 110/90 was the unknown) highest, usually diastolic in the 80s. No vision (unknown) (no (unknown) (unknown) mester if well (units (unknown) date) controlled (2nd unknown) trimester normal). Started baby aspirin at 12 (unknown) (no (unknown) (unknown) nt (units (unkno wn) date) unknown) (unknown) (no (unknown) (unknown) number of (units (unkn own) date) children: 2 unknown) (unknown) (no (unknown) (unknown) occupational (units (u nknown) date) status: employed unknown) (unknown) (no (unknown) (unknown) occurred due to (units (unknown) date) the inherent unknown) limitations of voice recognition software. Please (unknown) (no (unknown) (unknown) other Camron (units (un known) date) unknown) (unknown) (no (unknown) (unknown) other Jeaneth (units (un known) date) unknown) (unknown) (no (unknown) (unknown) pain. Pt will (units ( unknown) date) complete 24hr unknown) protein this week. (unknown) (no (unknown) (unknown) pets and (units (unkno wn) date) animals: Yes (1 unknown) cat (pt is not managing litter box)) (unknown) (no (unknown) (unknown) precautions, (units (u nknown) date) Listeriosis unknown) prevention and Rubella Immunization (unknown) (no (unknown) (unknown) pt check her BPs (units (unknown) date) at home daily and unknown) bring log to next appt. (unknown) (no (unknown) (unknown) read the note (units ( unknown) date) carefully and unknown) recognize, using context, where these substitutions (unknown) (no (unknown) (unknown) seatbelt use: (units ( unknown) date) always unknown) (unknown) (no (unknown) (unknown) second hand (units (un known) date) exposure: No unknown) (unknown) (no (unknown) (unknown) seeing spots (units (u nknown) date) primarily later unknown) in the day. Increase Labetalol to 300mg BID. (unknown) (no (unknown) (unknown) software. (units (unkn own) date) Although every unknown) effort is made to edit content, white sidewall tire buffer errors (unknown) (no (unknown) (unknown) soon. (units (unkno wn) date) unknown) (unknown) (no (unknown) (unknown) special fly (units ( unknown) date) needs: No unknown) (unknown) (no (unknown) (unknown) substance use (units ( unknown) date) type: marijuana unknown) (unknown) (no (unknown) (unknown) to Labetalol (units (u nknown) date) with . unknown) BP quite elevated today. Increase to 200mg daily (unknown) (no (unknown) (unknown) today. Acutely (units (unknown) date) worse today. BPs unknown) at home have been 120/70-80s. - Will obtain (unknown) (no (unknown) (unknown) today. Baseline (units (unknown) date) pre-eclampsia unknown) labs ordered. (unknown) (no (unknown) (unknown) vaccine (units (unkno wn) date) unknown) (unknown) (no (unknown) (unknown) water heater (units (u nknown) date) temp set < 120 unknown) deg: Yes (Will check and adjust if needed) (unknown) (no (unknown) (unknown) weekly labs. (units (u nknown) date) testing unknown) still. Delivery at 37wks (requested 08/26/22) (unknown) (no (unknown) (unknown) weeks. NSTs (units (un known) date) starting at unknown) 32wks. Serial growth ultrasounds (last 08/04). Pre (unknown) (no (unknown) (unknown) well-balanced (units ( unknown) date) diet: about half unknown) the time (unknown) (no (unknown) (unknown) wks (units (unkno wn) date) unknown) (unknown) (no (unknown) (unknown) working on (units (unk nown) date) cutting down salt unknown) intake. (unknown) (no (unknown) (unknown) working smoke (units ( unknown) date) detector in home: unknown) Yes Result panel 21 (unknown) (no (unknown) (unknown) (no value) (units (unk nown) date) unknown) (unknown) (no (unknown) (unknown) (+0 oz) 146/80 (units (unknown) date) unknown) (unknown) (no (unknown) (unknown) (+10 lb) 120/82 (units (unknown) date) unknown) (unknown) (no (unknown) (unknown) (+10 lb) 140/86 (units (unknown) date) unknown) (unknown) (no (unknown) (unknown) (+10 lb) 140/90 (units (unknown) date) unknown) (unknown) (no (unknown) (unknown) (+3 lb) 160/116 (units (unknown) date) unknown) (unknown) (no (unknown) (unknown) (+4 oz) 126/70 (units (unknown) date) unknown) (unknown) (no (unknown) (unknown) (+6 lb) 134/84 (units (unknown) date) unknown) (unknown) (no (unknown) (unknown) (+9 lb) 136/90 (units (unknown) date) unknown) (unknown) (no (unknown) (unknown) Genetic (units (unkn own) date) Screening/Teratol unknown) ogy Counseling - Includes patient, baby's father, or (unknown) (no (unknown) (unknown) -?-?-?-?-?-?-?-? (units (unknown) date) -?-?-?-? unknown) (unknown) (no (unknown) (unknown) [id number] (units (unkno wn) date) unknown) (unknown) (no (unknown) (unknown) 09/02/22 (units (unkno wn) date) unknown) (unknown) (no (unknown) (unknown) 12/10/14 39 8 lb (units (unknown) date) 3 oz Female unknown) live - full term (unknown) (no (unknown) (unknown) 01/06/11 41 1 9 (units (unknown) date) lb 1 oz Male unknown) live - full term (unknown) (no (unknown) (unknown) 02/10/22 (units (unkno wn) date) unknown) (unknown) (no (unknown) (unknown) 03/16/22 (units (unkno wn) date) unknown) (unknown) (no (unknown) (unknown) 04/15/22 (units (unkno wn) date) unknown) (unknown) (no (unknown) (unknown) 05/13/22 (units (unkno wn) date) unknown) (unknown) (no (unknown) (unknown) 06/17/22 (units (unkno wn) date) unknown) (unknown) (no (unknown) (unknown) 07/01/22 (units (unkno wn) date) unknown) (unknown) (no (unknown) (unknown) 07/15/22 (units (unkno wn) date) unknown) (unknown) (no (unknown) (unknown) 07/29/22 (units (unkno wn) date) unknown) (unknown) (no (unknown) (unknown) 13w 5d 198 lb 4 (units (unknown) date) oz unknown) (unknown) (no (unknown) (unknown) 152/116 (units (unkno wn) date) unknown) (unknown) (no (unknown) (unknown) 18w 0d 198 lb (units ( unknown) date) unknown) (unknown) (no (unknown) (unknown) 2+ 4wks (units (unkno wn) date) unknown) (unknown) (no (unknown) (unknown) 22w 0d 204 lb (units ( unknown) date) unknown) (unknown) (no (unknown) (unknown) 27w 0d 207 lb (units ( unknown) date) unknown) (unknown) (no (unknown) (unknown) 29w 0d 208 lb (units ( unknown) date) unknown) (unknown) (no (unknown) (unknown) 31w 0d 208 lb (units ( unknown) date) unknown) (unknown) (no (unknown) (unknown) 33w 0d 208 lb (units ( unknown) date) unknown) (unknown) (no (unknown) (unknown) 4wks (units (unkno wn) date) unknown) (unknown) (no (unknown) (unknown) 02/10, 300mg BID (units (unknown) date) 06/17. Baseline unknown) pre-eclampsia labs ordered. Will need qtri (unknown) (no (unknown) (unknown) 8w 6d 201 lb (units (u nknown) date) unknown) (unknown) (no (unknown) (unknown) Abdomen with a (units (unknown) date) very itchy rash. unknown) Nothing on her hands and feet. Most (unknown) (no (unknown) (unknown) Abnormal lab (units (u nknown) date) values 1st unknown) trimester: discussed (unknown) (no (unknown) (unknown) Abnormal lab (units (u nknown) date) values 3rd unknown) trimester: discussed (unknown) (no (unknown) (unknown) Add'l Plan (units (unk nown) date) Details unknown) (unknown) (no (unknown) (unknown) Age/Sex: 32 / F (units (unknown) date) Date of Service: unknown) (unknown) (no (unknown) (unknown) Allergies (units (unkn own) date) unknown) (unknown) (no (unknown) (unknown) [facility] (units (unknown) date) Medicine unknown) (unknown) (no (unknown) (unknown) [place], [place] (units ( unknown) date) [id number] unknown) (unknown) (no (unknown) (unknown) Anatomy scan (units (u nknown) date) normal, 88th unknown) percentile (unknown) (no (unknown) (unknown) Anatomy u/s (units (un known) date) ordered unknown) (unknown) (no (unknown) (unknown) Anesthesia (units (unk nown) date) preference: Other unknown) (spinal for c/s) (unknown) (no (unknown) (unknown) Anesthesia/Analg (units (unknown) date) esia plans: unknown) discussed (unknown) (no (unknown) (unknown) Aneuploidy (units (unk nown) date) Screening unknown) Offered: Accepted (unknown) (no (unknown) (unknown) Antibiotic Eye (units (unknown) date) Drops-: Yes unknown) (unknown) (no (unknown) (unknown) Anticipated (units (un known) date) course of unknown) care: discussed (unknown) (no (unknown) (unknown) Assessment and (units (unknown) date) Plan unknown) (unknown) (no (unknown) (unknown) Asymptomatic. (units ( unknown) date) Vision changes unknown) improved with iron supplement. (unknown) (no (unknown) (unknown) Attending Dr: (units ( unknown) date) Rabia Gooden MD unknown) (unknown) (no (unknown) (unknown) BPs at home (units (un known) date) diastolic 90-93, unknown) systolic in 130s. No headaches. Pt is (unknown) (no (unknown) (unknown) BPs at home have (units (unknown) date) been 130/80-90s. unknown) Increase Labetalol to 400mg BID. (unknown) (no (unknown) (unknown) BPs at home have (units (unknown) date) been in normal unknown) range. (unknown) (no (unknown) (unknown) BPs have been (units ( unknown) date) consistently in unknown) good range, 110s/60s in general. (unknown) (no (unknown) (unknown) (units (unkno wn) date) Plan/Preferences unknown) (unknown) (no (unknown) (unknown) Planning (units (unknown) date) unknown) (unknown) (no (unknown) (unknown) Blister (units (unkno wn) date) unknown) (unknown) (no (unknown) (unknown) Blood (units (unkno wn) date) transfusions?: unknown) yes (unknown) (no (unknown) (unknown) Breastfeed Preg (units (unknown) date) Comp Name unknown) (unknown) (no (unknown) (unknown) Checking BPs at (units (unknown) date) home - before unknown) medication BPs usually 140s/80s. After (unknown) (no (unknown) (unknown) Chronic HTN - (units ( unknown) date) Switched to unknown) Labetalol with . Increased to 200mg BID (unknown) (no (unknown) (unknown) Chronic HTN (units (un known) date) started January unknown) 2020, on Lisinopril. Added Carvedilol. Switched (unknown) (no (unknown) (unknown) Chronic cough (units ( unknown) date) (-2000) unknown) (unknown) (no (unknown) (unknown) Current Estimate (units (unknown) date) 09/16/22 LMP unknown) (Certain) 38w 0d (unknown) (no (unknown) (unknown) Current (units (unkno wn) date) History unknown) (unknown) (no (unknown) (unknown) : 1990 (units (unknown) date) Acct:[id number] unknown) (unknown) (no (unknown) (unknown) Date of positive (units (unknown) date) home unknown) test: 12/30/21 (unknown) (no (unknown) (unknown) Date (units (unkno wn) date) unknown) (unknown) (no (unknown) (unknown) Dating u/s (units (unk nown) date) concordant with unknown) LMP, keep CLAU 09/16/22. (unknown) (no (unknown) (unknown) Del. Date (units (unkn own) date) GA/Weeks Labor unknown) Lgth Wt Sex Route Outcome Anesthesia Place (unknown) (no (unknown) (unknown) Delayed cord (units (u nknown) date) clamping: Yes unknown) (unknown) (no (unknown) (unknown) Delivery Date: (units (unknown) date) 12/10/14 Last unknown) Updated by: Bianca Arenas R.N. (unknown) (no (unknown) (unknown) Delivery Date: (units (unknown) date) 01/06/11 Last unknown) Updated by: Bianca Arenas R.N. (unknown) (no (unknown) (unknown) Delv (units (unkno wn) date) unknown) (unknown) (no (unknown) (unknown) Denies Congenital (units (unknown) date) Heart Defect, unknown) Denies Down Syndrome, Denies Muscular Dystrophy, (unknown) (no (unknown) (unknown) Denies Maternal (units (unknown) date) Metabolic unknown) Disorder (EG,TYPE 1 Diabetes, PKU), Denies Patient or (unknown) (no (unknown) (unknown) Denies Neural (units ( unknown) date) Tube Defect unknown) (Meningomyelocele , Spina Bifida, or Anencephaly), (unknown) (no (unknown) (unknown) Denies Sickle (units ( unknown) date) Cell Disease or unknown) Trait (), Denies Hemophilia or other blood (unknown) (no (unknown) (unknown) Denies Willie-Sachs (units (unknown) date) (Ashkenazi unknown) Yarsani, Cajun, [place] Romanian), Denies Fred (unknown) (no (unknown) (unknown) Denies other (units (u nknown) date) unknown) (unknown) (no (unknown) (unknown) Denies over the (units (unknown) date) counter unknown) medications, Denies alcohol, Denies illicit drugs and (unknown) (no (unknown) (unknown) Depression (units (unk nown) date) unknown) (unknown) (no (unknown) (unknown) Depression: (units (un known) date) discussed unknown) (unknown) (no (unknown) (unknown) Dept at (units (unkno wn) date) . unknown) (unknown) (no (unknown) (unknown) Desires quad (units (u nknown) date) screen for unknown) genetic testing. (unknown) (no (unknown) (unknown) Diet and (units (unkno wn) date) Exercise unknown) (unknown) (no (unknown) (unknown) Disease (units (unkno wn) date) (Ashkenazi unknown) Yarsani), Denies Familial Dysautonomia (Ashkenazi Yarsani), (unknown) (no (unknown) (unknown) Documented By: (units (unknown) date) Rabia Gooden MD unknown) 09/02/22 1301 (unknown) (no (unknown) (unknown) Draft (units (unkno wn) date) unknown) (unknown) (no (unknown) (unknown) CLAU Calculator (units (unknown) date) unknown) (unknown) (no (unknown) (unknown) EGA Weight BP (units ( unknown) date) UGlucose unknown) (unknown) (no (unknown) (unknown) Estimated (units (unkn own) date) Delivery Date unknown) Method Current (unknown) (no (unknown) (unknown) Exercise and (units (u nknown) date) activity, unknown) work/environmenta l/hazards, Sexual activity, X-ray (unknown) (no (unknown) (unknown) FHT 167. Normal (units (unknown) date) adnexa and unknown) ovaries. (unknown) (no (unknown) (unknown) Failed glucola, (units (unknown) date) 3hr GTT needs to unknown) be scheduled, will schedule today. (unknown) (no (unknown) (unknown) Family History (units (unknown) date) (Reviewed unknown) 07/30/22 @ 11:31 by Karina Gaytan DO) (unknown) (no (unknown) (unknown) Father of Baby: (units (unknown) date) same unknown) (unknown) (no (unknown) (unknown) movement (units (unknown) date) monitoring: unknown) discussed (unknown) (no (unknown) (unknown) First Trimester (units (unknown) date) Education unknown) Checklist (unknown) (no (unknown) (unknown) GERD getting (units (u nknown) date) worse. Tums unknown) doesn't help. - Discussed Pepcid (unknown) (no (unknown) (unknown) Genetic (units (unkno wn) date) Screening + unknown) Counseling (unknown) (no (unknown) (unknown) Genetic (units (unkno wn) date) Screening unknown) (unknown) (no (unknown) (unknown) Glucola competed (units (unknown) date) 07/14 at [facility] unknown) - records requested (unknown) (no (unknown) (unknown) Glucola ordered (units (unknown) date) unknown) (unknown) (no (unknown) (unknown) Grandfather (units (un known) date) Hypertension unknown) (unknown) (no (unknown) (unknown) Grandmother Type (units (unknown) date) 2 diabetes unknown) mellitus (unknown) (no (unknown) (unknown) 3 (units (unkn own) date) Multiple births unknown) (unknown) (no (unknown) (unknown) Growth u/s (units (unk nown) date) scheduled 08/10. unknown) (unknown) (no (unknown) (unknown) Growth (units (unkno wn) date) ultrasound unknown) ordered today (unknown) (no (unknown) (unknown) HIV risk (units (unkno wn) date) evaluation: low unknown) risk (unknown) (no (unknown) (unknown) Health Center (units ( unknown) date) Education unknown) (unknown) (no (unknown) (unknown) Health center (units ( unknown) date) information: unknown) nature of practice discussed, personnel (unknown) (no (unknown) (unknown) Hep B-Infant: (units ( unknown) date) Yes unknown) (unknown) (no (unknown) (unknown) Hepatitis C risk (units (unknown) date) evaluation: low unknown) risk (unknown) (no (unknown) (unknown) High risk (units (unkn own) date) type/reason(s): unknown) chronic HTN (unknown) (no (unknown) (unknown) History of (units (unk nown) date) Hepatitis B: No unknown) (unknown) (no (unknown) (unknown) History of (units (unk nown) date) Hepatitis C: No unknown) (unknown) (no (unknown) (unknown) [facility] (units (u [facility]known) [facility]) unknown) (unknown) (no (unknown) (unknown) [facility] (units (u nknown) date) Chorea, Denies unknown) Other inherited genetic or chromosomal disorder, (unknown) (no (unknown) (unknown) Hx # (units (u nknown) date) Pregnancies unknown) Elective abortions (unknown) (no (unknown) (unknown) Hx # Term (units (unkn own) date) Pregnancies 2 unknown) Ectopic pregnancies (unknown) (no (unknown) (unknown) Hx of prior (units (un known) date) unknown) (unknown) (no (unknown) (unknown) Hypertension (units (u nknown) date) unknown) (unknown) (no (unknown) (unknown) [facility] 3 months (units (un known) date) unknown) (unknown) (no (unknown) (unknown) [facility] attempted (units (u nknown) date) unknown) (unknown) (no (unknown) (unknown) ITCHING (units (unkno wn) date) unknown) (unknown) (no (unknown) (unknown) Increased foot (units (unknown) date) swelling. No unknown) headaches, vision changes, RUQ pain. (unknown) (no (unknown) (unknown) will be (units (unknown) date) adopted?: no unknown) (unknown) (no (unknown) (unknown) Infection (units (unkn own) date) History unknown) (unknown) (no (unknown) (unknown) Infectious (units (unk nown) date) Disease Education unknown) (unknown) (no (unknown) (unknown) Infectious (units (unk nown) date) disease exposure: unknown) chicken pox immunity discussed, hepatitis risk (unknown) (no (unknown) (unknown) Initial Weight: (units (unknown) date) 198 lb unknown) (unknown) (no (unknown) (unknown) Initials (units (unkno wn) date) unknown) (unknown) (no (unknown) (unknown) Intake (units (unkno wn) date) unknown) (unknown) (no (unknown) (unknown) FELICITY (units (unkno wn) date) unknown) (unknown) (no (unknown) (unknown) Legs have been (units (unknown) date) swelling unknown) slightly. She is wearing compression socks, (unknown) (no (unknown) (unknown) Live with (units (unkn own) date) someone with TB unknown) or exposed to TB: No (unknown) (no (unknown) (unknown) Loc: [facility] (units (unkno wn) date) unknown) (unknown) (no (unknown) (unknown) Marital status: (units (unknown) date) unmarried,living unknown) together (unknown) (no (unknown) (unknown) Medical History (units (unknown) date) (Reviewed unknown) 07/30/22 @ 11:31 by Karina Gaytan DO) (unknown) (no (unknown) (unknown) Mild (units (unkno wn) date) intermittent unknown) headaches. Can tell when BP is higher due to vision (unknown) (no (unknown) (unknown) Mother Age: 51 (units (unknown) date) Stroke unknown) (unknown) (no (unknown) (unknown) NSTs have (units (unkn own) date) started, unknown) reassuring thus far. (unknown) (no (unknown) (unknown) NSTs to start (units ( unknown) date) next week. Growth unknown) scan ordered. (unknown) (no (unknown) (unknown) Nausea is (units (unkn own) date) improved, unknown) tolerable now. (unknown) (no (unknown) (unknown) No no 150 absent (units (unknown) date) anatomy ordered unknown) 4wks (unknown) (no (unknown) (unknown) No no 167 absent (units (unknown) date) dating u/s 4wks unknown) (unknown) (no (unknown) (unknown) Notes (units (unkno wn) date) unknown) (unknown) (no (unknown) (unknown) Number of Living (units (unknown) date) Children 2 unknown) (unknown) (no (unknown) (unknown) Number of (units (unkn own) date) fetuses:: Single unknown) (unknown) (no (unknown) (unknown) Nutrition and (units ( unknown) date) weight gain unknown) counseling: special diet: discussed (unknown) (no (unknown) (unknown) OB Office Visit (units (unknown) date) unknown) (unknown) (no (unknown) (unknown) OB Visit Log (units (u nknown) date) unknown) (unknown) (no (unknown) (unknown) On control (units (unknown) date) at conception?: unknown) Yes (OCP, stopped on learning of ) (unknown) (no (unknown) (unknown) PFSH (units (unkno wn) date) unknown) (unknown) (no (unknown) (unknown) 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 (unknown) (no (unknown) (unknown) PUPP (pruritic (units (unknown) date) urticarial unknown) papules and plaques of ) (unknown) (no (unknown) (unknown) PUPPPS rash (units (un known) date) unknown) (unknown) (no (unknown) (unknown) Para 2 (units (unkno wn) date) Spontaneous unknown) abortions (unknown) (no (unknown) (unknown) Partner history (units (unknown) date) of STD: denies hx unknown) (unknown) (no (unknown) (unknown) Partner history (units (unknown) date) of genital unknown) herpes: No (unknown) (no (unknown) (unknown) Partner: Lloyd (units (unknown) date) [place] unknown) (unknown) (no (unknown) (unknown) Past Pregnancies (units (unknown) date) unknown) (unknown) (no (unknown) (unknown) Patient's age 35 (units (unknown) date) years or older as unknown) of estimated date of delivery: No (unknown) (no (unknown) (unknown) Patient: (units (unkno wn) date) [place] unknown) MR#: [id number] (unknown) (no (unknown) (unknown) 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 Will be unknown) starting job at [employer] (unknown) (no (unknown) (unknown) Plan to obtain (units (unknown) date) baseline labs at unknown) next appt. Pt with increasing swelling (unknown) (no (unknown) (unknown) Plantar (units (unkno wn) date) fasciitis (-2016) unknown) (unknown) (no (unknown) (unknown) (units (unkn own) date) History unknown) (unknown) (no (unknown) (unknown) type:: (units (unknown) date) High Risk Other unknown) (unknown) (no (unknown) (unknown) (units (unkno wn) date) Education unknown) (unknown) (no (unknown) (unknown) Initial (units (unknown) date) Assessment unknown) (unknown) (no (unknown) (unknown) (units (unkno wn) date) Specific unknown) Issues/Plans (unknown) (no (unknown) (unknown) (units (unkno wn) date) Testing: unknown) discussed (unknown) (no (unknown) (unknown) Visit (units (unknown) date) unknown) (unknown) (no (unknown) (unknown) (units (unkno wn) date) education packet: unknown) Child education/plan, symptoms, (unknown) (no (unknown) (unknown) Prilosec. (units (unkn own) date) unknown) (unknown) (no (unknown) (unknown) Primary Care (units (u nknown) date) Provider: unknown) Sadie (unknown) (no (unknown) (unknown) Primary Ob (units (unk nown) date) Provider: unknown) Rabia Gooden (unknown) (no (unknown) (unknown) Prior (units (unkno wn) date) GBS-Infected unknown) child: No (unknown) (no (unknown) (unknown) Providers (units (unkn own) date) unknown) (unknown) (no (unknown) (unknown) Psoriasis (units (unkn own) date) unknown) (unknown) (no (unknown) (unknown) Pt did not (units (unk nown) date) complete quad unknown) screen (unknown) (no (unknown) (unknown) Pt has been (units (un known) date) feeling somewhat unknown) winded. No swelling. (unknown) (no (unknown) (unknown) Pt hasn't been (units (unknown) date) checking BP at unknown) home, but when she did check was 130/80. (unknown) (no (unknown) (unknown) Pt is taking (units (u nknown) date) Tums and unknown) Prilosec, GERD still severe. Discussed BID dosing (unknown) (no (unknown) (unknown) Pt with ongoing (units (unknown) date) LE swelling. unknown) Primarily left foot. No pain in (unknown) (no (unknown) (unknown) Pt with (units (unkno wn) date) significant unknown) nausea. Manageable thus far. Declines need for (unknown) (no (unknown) (unknown) Quad screen (units (un known) date) ordered today. unknown) Anatomy scheduled. 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 unknown) Growth u/s scheduled for later today. (unknown) (no (unknown) (unknown) Reminded to (units (un known) date) complete lab work unknown) (unknown) (no (unknown) (unknown) Repeat BP today (units (unknown) date) 132/86. No unknown) headaches, vision changes, RUQ pain, edema. Request (unknown) (no (unknown) (unknown) Rx Clobetasol to (units (unknown) date) help with unknown) itching. (unknown) (no (unknown) (unknown) Safety (units (unkno wn) date) unknown) (unknown) (no (unknown) (unknown) Signed By: (units (unk nown) date) unknown) (unknown) (no (unknown) (unknown) Smoking Status: (units (unknown) date) Never smoker unknown) (unknown) (no (unknown) (unknown) Social History (units (unknown) date) unknown) (unknown) (no (unknown) (unknown) Status post (units (un known) date) appendectomy unknown) () (unknown) (no (unknown) (unknown) Status post (units (un known) date) delivery unknown) (01/06/11) (unknown) (no (unknown) (unknown) Status post (units (un known) date) delivery unknown) (unknown) (no (unknown) (unknown) Sulfa (units (unkno wn) date) (Sulfonamide unknown) Antibiotics) Allergy (Mild, Verified 07/15/22 09:55) (unknown) (no (unknown) (unknown) Support (units (unkno wn) date) Person(s):: unknown) Lloyd (unknown) (no (unknown) (unknown) Surgery date to (units (unknown) date) be requested for unknown) 09/09/22. Packet sent to dental scheduler. (unknown) (no (unknown) (unknown) Surgical History (units (unknown) date) (Reviewed unknown) 07/30/22 @ 11:31 by Karina Gaytan DO) (unknown) (no (unknown) (unknown) Surrogate (units (unkn own) date) ?: no unknown) (unknown) (no (unknown) (unknown) Symptoms since (units (unknown) date) LMP: Reports unknown) nausea, breast tenderness, urinary frequency, (unknown) (no (unknown) (unknown) Teratogen (units (unkn own) date) Exposures since unknown) LMP/Conception: Denies prescription medications, (unknown) (no (unknown) (unknown) Testing (units (unkno wn) date) Education unknown) (unknown) (no (unknown) (unknown) Testing (units (unkno wn) date) education unknown) completed: Spina bifida testing and Cell Free DNA (unknown) (no (unknown) (unknown) Third Trimester (units (unknown) date) Education unknown) Checklist (unknown) (no (unknown) (unknown) This note may (units ( unknown) date) have been all or unknown) partially generated using voice recognition (unknown) (no (unknown) (unknown) Tobacco + (units (unkn own) date) Substance Use unknown) (unknown) (no (unknown) (unknown) Tobacco Status (units (unknown) date) unknown) (unknown) (no (unknown) (unknown) Type(s) of (units (unk nown) date) exercise: none unknown) (unknown) (no (unknown) (unknown) UProtein Movement (units (unknown) date) PreLabor FHR Fndl unknown) Ht Pres Edema Cerv Exam US/Comment Next Appt (unknown) (no (unknown) (unknown) Ultrasound (units (unk nown) date) Details:: Dating unknown) u/s 02/10/22 - Single IUP. CRL consistent with 8w1d. (unknown) (no (unknown) (unknown) Ultrasound (units (unk nown) date) unknown) (unknown) (no (unknown) (unknown) Varicella/chicke (units (unknown) date) n pox status: unknown) previous disease (unknown) (no (unknown) (unknown) Visit Date: (units (un known) date) 02/10/22 Last unknown) Updated by: Rabia Gooden MD (unknown) (no (unknown) (unknown) Visit Date: (units (un known) date) 03/16/22 Last unknown) Updated by: Rabia Gooden MD (unknown) (no (unknown) (unknown) Visit Date: (units (un known) date) 04/15/22 Last unknown) Updated by: Rabia Gooden MD (unknown) (no (unknown) (unknown) Visit Date: (units (un known) date) 05/13/22 Last unknown) Updated by: Rabia Gooden MD (unknown) (no (unknown) (unknown) Visit Date: (units (un known) date) 06/17/22 Last unknown) Updated by: Rabia Gooden MD (unknown) (no (unknown) (unknown) Visit Date: (units (un known) date) 07/01/22 Last unknown) Updated by: Rabia Gooden MD (unknown) (no (unknown) (unknown) Visit Date: (units (un known) date) 07/15/22 Last unknown) Updated by: Rabia Gooden MD (unknown) (no (unknown) (unknown) Visit Date: (units (un known) date) 07/29/22 Last unknown) Updated by: Rabia Gooden MD (unknown) (no (unknown) (unknown) Visit Reasons: (units (unknown) date) post C section unknown) f/u (unknown) (no (unknown) (unknown) Vitamin (units (unkno wn) date) K-: Yes unknown) (unknown) (no (unknown) (unknown) Vitamins and (units (u nknown) date) iron, Diet and unknown) weight gain, Fish and mercury intake, Caffeine use, (unknown) (no (unknown) (unknown) WG (units (unkno wn) date) unknown) (unknown) (no (unknown) (unknown) 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 works at (unknown) (no (unknown) (unknown) Yes no 130 27 (units ( unknown) date) absent glucola unknown) ordered 2 (unknown) (no (unknown) (unknown) Yes no 132 28 (units ( unknown) date) absent 2wks unknown) (unknown) (no (unknown) (unknown) Yes no 134 31 (units ( unknown) date) absent 2wks unknown) (unknown) (no (unknown) (unknown) Yes no 140 30 (units ( unknown) date) absent 2wks unknown) (unknown) (no (unknown) (unknown) Yes no 144 21 (units ( unknown) date) abse unknown) (unknown) (no (unknown) (unknown) Yes yes 140 (units (un known) date) absent unknown) (unknown) (no (unknown) (unknown) Zika virus (units (unk nown) date) exposure: No unknown) (unknown) (no (unknown) (unknown) alcohol intake: (units (unknown) date) former unknown) (unknown) (no (unknown) (unknown) amoxicillin (units (un known) date) Allergy (Mild, unknown) Verified 07/15/22 09:55) (unknown) (no (unknown) (unknown) anyone in either (units (unknown) date) family with: unknown) (unknown) (no (unknown) (unknown) 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 (units (unk nown) date) unknown) (unknown) (no (unknown) (unknown) azithromycin (units (u nknown) date) Allergy (Mild, unknown) Verified 07/15/22 09:55) (unknown) (no (unknown) (unknown) baby's father (units ( unknown) date) had a child with unknown) defects not listed above and Denies Other (unknown) (no (unknown) (unknown) caffeine: Yes (units ( unknown) date) unknown) (unknown) (no (unknown) (unknown) carbon monox (units (u nknown) date) detector in home: unknown) Yes (unknown) (no (unknown) (unknown) changes. Mild (units ( unknown) date) headaches - unknown) usually relieved quickly, stressed at work. No RUQ (unknown) (no (unknown) (unknown) changes. Mother (units (unknown) date) with unknown) due to severe pre-eclampsia at 23wks. (unknown) (no (unknown) (unknown) chlorhexidine (units ( unknown) date) Adverse Reaction unknown) (Intermediate, Verified 07/15/22 09:55) (unknown) (no (unknown) (unknown) consistent with (units (unknown) date) PUPPS, but bile unknown) acids ordered to ensure no cholestasis as well. (unknown) (no (unknown) (unknown) current (units (unkno wn) date) occupational unknown) exposures/hazards : No (unknown) (no (unknown) (unknown) daily servings (units (unknown) date) fruits/ve-1 unknown) (unknown) (no (unknown) (unknown) described, visit (units (unknown) date) schedule unknown) reviewed, ultrasounds policy reviewed, coverage 24 (unknown) (no (unknown) (unknown) discussed, (units (unk nown) date) tuberculosis unknown) exposure discussed, CMV discussed, Toxoplasmosis (unknown) (no (unknown) (unknown) disorders, (units (unk nown) date) Denies Cystic unknown) Fibrosis, Denies Mental Retardation/Autis m, Denies (unknown) (no (unknown) (unknown) do you feel safe (units (unknown) date) at home: Yes unknown) (unknown) (no (unknown) (unknown) during the past (units (unknown) date) year weight has: unknown) remained stable (unknown) (no (unknown) (unknown) eclampsia - (units (un known) date) diagnosed 08/04 unknown) at 33w6d. Started Nifedipine 30mg XR. Plan on (unknown) (no (unknown) (unknown) education level: (units (unknown) date) other unknown) (unknown) (no (unknown) (unknown) exposure, (units (unkn own) date) Medication use, unknown) Sauna/hot tub use, Dental care, Travel and Influenza (unknown) (no (unknown) (unknown) feet/calves. (units (u nknown) date) Discussed unknown) elevation, water, decreased salt intake. (unknown) (no (unknown) (unknown) fire (units (unkno wn) date) extinguisher in unknown) home: Yes (unknown) (no (unknown) (unknown) firearms in (units (un known) date) home: No unknown) (unknown) (no (unknown) (unknown) have occurred. (units (unknown) date) If there are any unknown) questions, please contact the Medical Records (unknown) (no (unknown) (unknown) hours a day and (units (unknown) date) participation of unknown) father in care and office visits (unknown) (no (unknown) (unknown) household (units (unkn own) date) members: unknown) significant other and children (unknown) (no (unknown) (unknown) housing: (units (unkno wn) date) apartment unknown) (unknown) (no (unknown) (unknown) hyperemesis 1st (units (unknown) date) trimester unknown) (unknown) (no (unknown) (unknown) irritability, (units ( unknown) date) bloating and unknown) other (unknown) (no (unknown) (unknown) labs today (units (unk nown) date) unknown) (unknown) (no (unknown) (unknown) latex Adverse (units ( unknown) date) Reaction (Mild, unknown) Verified 07/15/22 09:55) (unknown) (no (unknown) (unknown) lives (units (unkno wn) date) independently: unknown) Yes (unknown) (no (unknown) (unknown) marital status: (units (unknown) date) unmarried,living unknown) together (unknown) (no (unknown) (unknown) may occur. (units (unk nown) date) Occasional unknown) wrong-word or 'sound-alike' substitutions may have (unknown) (no (unknown) (unknown) medication (units (unk nown) date) 110/90 was the unknown) highest, usually diastolic in the 80s. No vision (unknown) (no (unknown) (unknown) mester if well (units (unknown) date) controlled (2nd unknown) trimester normal). Started baby aspirin at 12 (unknown) (no (unknown) (unknown) nt (units (unkno wn) date) unknown) (unknown) (no (unknown) (unknown) number of (units (unkn own) date) children: 2 unknown) (unknown) (no (unknown) (unknown) occupational (units (u nknown) date) status: employed unknown) (unknown) (no (unknown) (unknown) occurred due to (units (unknown) date) the inherent unknown) limitations of voice recognition software. Please (unknown) (no (unknown) (unknown) other Camron (units (un known) date) unknown) (unknown) (no (unknown) (unknown) other Jeaneth (units (un known) date) unknown) (unknown) (no (unknown) (unknown) pain. Pt will (units ( unknown) date) complete 24hr unknown) protein this week. (unknown) (no (unknown) (unknown) pets and (units (unkno wn) date) animals: Yes (1 unknown) cat (pt is not managing litter box)) (unknown) (no (unknown) (unknown) precautions, (units (u nknown) date) Listeriosis unknown) prevention and Rubella Immunization (unknown) (no (unknown) (unknown) pt check her BPs (units (unknown) date) at home daily and unknown) bring log to next appt. (unknown) (no (unknown) (unknown) read the note (units ( unknown) date) carefully and unknown) recognize, using context, where these substitutions (unknown) (no (unknown) (unknown) seatbelt use: (units ( unknown) date) always unknown) (unknown) (no (unknown) (unknown) second hand (units (un known) date) exposure: No unknown) (unknown) (no (unknown) (unknown) seeing spots (units (u nknown) date) primarily later unknown) in the day. Increase Labetalol to 300mg BID. (unknown) (no (unknown) (unknown) software. (units (unkn own) date) Although every unknown) effort is made to edit content, white sidewall tire buffer errors (unknown) (no (unknown) (unknown) soon. (units (unkno wn) date) unknown) (unknown) (no (unknown) (unknown) special fly (units ( unknown) date) needs: No unknown) (unknown) (no (unknown) (unknown) substance use (units ( unknown) date) type: marijuana unknown) (unknown) (no (unknown) (unknown) to Labetalol (units (u nknown) date) with . unknown) BP quite elevated today. Increase to 200mg daily (unknown) (no (unknown) (unknown) today. Acutely (units (unknown) date) worse today. BPs unknown) at home have been 120/70-80s. - Will obtain (unknown) (no (unknown) (unknown) today. Baseline (units (unknown) date) pre-eclampsia unknown) labs ordered. (unknown) (no (unknown) (unknown) vaccine (units (unkno wn) date) unknown) (unknown) (no (unknown) (unknown) water heater (units (u nknown) date) temp set < 120 unknown) deg: Yes (Will check and adjust if needed) (unknown) (no (unknown) (unknown) weekly labs. (units (u nknown) date) testing unknown) still. Delivery at 37wks (requested 08/26/22) (unknown) (no (unknown) (unknown) weeks. NSTs (units (un known) date) starting at unknown) 32wks. Serial growth ultrasounds (last 08/04). Pre (unknown) (no (unknown) (unknown) well-balanced (units ( unknown) date) diet: about half unknown) the time (unknown) (no (unknown) (unknown) wks (units (unkno wn) date) unknown) (unknown) (no (unknown) (unknown) working on (units (unk nown) date) cutting down salt unknown) intake. (unknown) (no (unknown) (unknown) working smoke (units ( unknown) date) detector in home: unknown) Yes Result panel 22 (unknown) (no (unknown) (unknown) (no value) (units (unk nown) date) unknown) (unknown) (no (unknown) (unknown) (+0 oz) 146/80 (units (unknown) date) unknown) (unknown) (no (unknown) (unknown) (+10 lb) 120/82 (units (unknown) date) unknown) (unknown) (no (unknown) (unknown) (+10 lb) 140/86 (units (unknown) date) unknown) (unknown) (no (unknown) (unknown) (+10 lb) 140/90 (units (unknown) date) unknown) (unknown) (no (unknown) (unknown) (+3 lb) 160/116 (units (unknown) date) unknown) (unknown) (no (unknown) (unknown) (+4 oz) 126/70 (units (unknown) date) unknown) (unknown) (no (unknown) (unknown) (+6 lb) 134/84 (units (unknown) date) unknown) (unknown) (no (unknown) (unknown) (+9 lb) 136/90 (units (unknown) date) unknown) (unknown) (no (unknown) (unknown) Genetic (units (unkn own) date) Screening/Teratol unknown) ogy Counseling - Includes patient, baby's father, or (unknown) (no (unknown) (unknown) -?-?-?-?-?-?-?-? (units (unknown) date) -?-?-?-? unknown) (unknown) (no (unknown) (unknown) [id number] (units (unkno wn) date) unknown) (unknown) (no (unknown) (unknown) 09/02/22 (units (unkno wn) date) unknown) (unknown) (no (unknown) (unknown) 12/10/14 39 8 lb (units (unknown) date) 3 oz Female unknown) live - full term (unknown) (no (unknown) (unknown) 01/06/11 41 1 9 (units (unknown) date) lb 1 oz Male unknown) live - full term (unknown) (no (unknown) (unknown) 02/10/22 (units (unkno wn) date) unknown) (unknown) (no (unknown) (unknown) 03/16/22 (units (unkno wn) date) unknown) (unknown) (no (unknown) (unknown) 04/15/22 (units (unkno wn) date) unknown) (unknown) (no (unknown) (unknown) 05/13/22 (units (unkno wn) date) unknown) (unknown) (no (unknown) (unknown) 06/17/22 (units (unkno wn) date) unknown) (unknown) (no (unknown) (unknown) 07/01/22 (units (unkno wn) date) unknown) (unknown) (no (unknown) (unknown) 07/15/22 (units (unkno wn) date) unknown) (unknown) (no (unknown) (unknown) 07/29/22 (units (unkno wn) date) unknown) (unknown) (no (unknown) (unknown) 13w 5d 198 lb 4 (units (unknown) date) oz unknown) (unknown) (no (unknown) (unknown) 152/116 (units (unkno wn) date) unknown) (unknown) (no (unknown) (unknown) 18w 0d 198 lb (units ( unknown) date) unknown) (unknown) (no (unknown) (unknown) 2+ 4wks (units (unkno wn) date) unknown) (unknown) (no (unknown) (unknown) 22w 0d 204 lb (units ( unknown) date) unknown) (unknown) (no (unknown) (unknown) 27w 0d 207 lb (units ( unknown) date) unknown) (unknown) (no (unknown) (unknown) 29w 0d 208 lb (units ( unknown) date) unknown) (unknown) (no (unknown) (unknown) 31w 0d 208 lb (units ( unknown) date) unknown) (unknown) (no (unknown) (unknown) 33w 0d 208 lb (units ( unknown) date) unknown) (unknown) (no (unknown) (unknown) 4wks (units (unkno wn) date) unknown) (unknown) (no (unknown) (unknown) 02/10, 300mg BID (units (unknown) date) 06/17. Baseline unknown) pre-eclampsia labs ordered. Will need qtri (unknown) (no (unknown) (unknown) 8w 6d 201 lb (units (u nknown) date) unknown) (unknown) (no (unknown) (unknown) Abdomen with a (units (unknown) date) very itchy rash. unknown) Nothing on her hands and feet. Most (unknown) (no (unknown) (unknown) Abnormal lab (units (u nknown) date) values 1st unknown) trimester: discussed (unknown) (no (unknown) (unknown) Abnormal lab (units (u nknown) date) values 3rd unknown) trimester: discussed (unknown) (no (unknown) (unknown) Add'l Plan (units (unk nown) date) Details unknown) (unknown) (no (unknown) (unknown) Age/Sex: 32 / F (units (unknown) date) Date of Service: unknown) (unknown) (no (unknown) (unknown) Allergies (units (unkn own) date) unknown) (unknown) (no (unknown) (unknown) [facility] (units (unknown) date) Medicine unknown) (unknown) (no (unknown) (unknown) [place], [place] (units ( unknown) date) [id number] unknown) (unknown) (no (unknown) (unknown) Anatomy scan (units (u nknown) date) normal, 88th unknown) percentile (unknown) (no (unknown) (unknown) Anatomy u/s (units (un known) date) ordered unknown) (unknown) (no (unknown) (unknown) Anesthesia (units (unk nown) date) preference: Other unknown) (spinal for c/s) (unknown) (no (unknown) (unknown) Anesthesia/Analg (units (unknown) date) esia plans: unknown) discussed (unknown) (no (unknown) (unknown) Aneuploidy (units (unk nown) date) Screening unknown) Offered: Accepted (unknown) (no (unknown) (unknown) Antibiotic Eye (units (unknown) date) Drops-: Yes unknown) (unknown) (no (unknown) (unknown) Anticipated (units (un known) date) course of unknown) care: discussed (unknown) (no (unknown) (unknown) Assessment and (units (unknown) date) Plan unknown) (unknown) (no (unknown) (unknown) Asymptomatic. (units ( unknown) date) Vision changes unknown) improved with iron supplement. (unknown) (no (unknown) (unknown) Attending Dr: (units ( unknown) date) Rabia Gooden MD unknown) (unknown) (no (unknown) (unknown) BPs at home (units (un known) date) diastolic 90-93, unknown) systolic in 130s. No headaches. Pt is (unknown) (no (unknown) (unknown) BPs at home have (units (unknown) date) been 130/80-90s. unknown) Increase Labetalol to 400mg BID. (unknown) (no (unknown) (unknown) BPs at home have (units (unknown) date) been in normal unknown) range. (unknown) (no (unknown) (unknown) BPs have been (units ( unknown) date) consistently in unknown) good range, 110s/60s in general. (unknown) (no (unknown) (unknown) (units (unkno wn) date) Plan/Preferences unknown) (unknown) (no (unknown) (unknown) Planning (units (unknown) date) unknown) (unknown) (no (unknown) (unknown) Blister (units (unkno wn) date) unknown) (unknown) (no (unknown) (unknown) Blood (units (unkno wn) date) transfusions?: unknown) yes (unknown) (no (unknown) (unknown) Breastfeed Preg (units (unknown) date) Comp Name unknown) (unknown) (no (unknown) (unknown) Checking BPs at (units (unknown) date) home - before unknown) medication BPs usually 140s/80s. After (unknown) (no (unknown) (unknown) Chronic HTN - (units ( unknown) date) Switched to unknown) Labetalol with . Increased to 200mg BID (unknown) (no (unknown) (unknown) Chronic HTN (units (un known) date) started January unknown) 2020, on Lisinopril. Added Carvedilol. Switched (unknown) (no (unknown) (unknown) Chronic cough (units ( unknown) date) (-2000) unknown) (unknown) (no (unknown) (unknown) Current Estimate (units (unknown) date) 09/16/22 LMP unknown) (Certain) 38w 0d (unknown) (no (unknown) (unknown) Current (units (unkno wn) date) History unknown) (unknown) (no (unknown) (unknown) : 1990 (units (unknown) date) Acct:[id number] unknown) (unknown) (no (unknown) (unknown) Date of positive (units (unknown) date) home unknown) test: 12/30/21 (unknown) (no (unknown) (unknown) Date (units (unkno wn) date) unknown) (unknown) (no (unknown) (unknown) Dating u/s (units (unk nown) date) concordant with unknown) LMP, keep CLAU 09/16/22. (unknown) (no (unknown) (unknown) Del. Date (units (unkn own) date) GA/Weeks Labor unknown) Lgth Wt Sex Route Outcome Anesthesia Place (unknown) (no (unknown) (unknown) Delayed cord (units (u nknown) date) clamping: Yes unknown) (unknown) (no (unknown) (unknown) Delivery Date: (units (unknown) date) 12/10/14 Last unknown) Updated by: Bianca Arenas R.N. (unknown) (no (unknown) (unknown) Delivery Date: (units (unknown) date) 01/06/11 Last unknown) Updated by: Bianca Arenas R.N. (unknown) (no (unknown) (unknown) Delivery Date: (units (unknown) date) 08/04/22 unknown) (unknown) (no (unknown) (unknown) Delv (units (unkno wn) date) unknown) (unknown) (no (unknown) (unknown) Denies Congenital (units (unknown) date) Heart Defect, unknown) Denies Down Syndrome, Denies Muscular Dystrophy, (unknown) (no (unknown) (unknown) Denies Maternal (units (unknown) date) Metabolic unknown) Disorder (EG,TYPE 1 Diabetes, PKU), Denies Patient or (unknown) (no (unknown) (unknown) Denies Neural (units ( unknown) date) Tube Defect unknown) (Meningomyelocele , Spina Bifida, or Anencephaly), (unknown) (no (unknown) (unknown) Denies Sickle (units ( unknown) date) Cell Disease or unknown) Trait (), Denies Hemophilia or other blood (unknown) (no (unknown) (unknown) Denies Willie-Sachs (units (unknown) date) (Ashkenazi unknown) Yarsani, Cajun, [place] Romanian), Denies Fred (unknown) (no (unknown) (unknown) Denies other (units (u nknown) date) unknown) (unknown) (no (unknown) (unknown) Denies over the (units (unknown) date) counter unknown) medications, Denies alcohol, Denies illicit drugs and (unknown) (no (unknown) (unknown) Depression (units (unk nown) date) unknown) (unknown) (no (unknown) (unknown) Depression: (units (un known) date) discussed unknown) (unknown) (no (unknown) (unknown) Dept at (units (unkno wn) date) . unknown) (unknown) (no (unknown) (unknown) Desires quad (units (u nknown) date) screen for unknown) genetic testing. (unknown) (no (unknown) (unknown) Diet and (units (unkno wn) date) Exercise unknown) (unknown) (no (unknown) (unknown) Disease (units (unkno wn) date) (Ashkenazi unknown) Yarsani), Denies Familial Dysautonomia (Ashkenazi Yarsani), (unknown) (no (unknown) (unknown) Documented By: (units (unknown) date) Rabia Gooden MD unknown) 09/02/22 1301 (unknown) (no (unknown) (unknown) Draft (units (unkno wn) date) unknown) (unknown) (no (unknown) (unknown) CLAU Calculator (units (unknown) date) unknown) (unknown) (no (unknown) (unknown) EGA Weight BP (units ( unknown) date) UGlucose unknown) (unknown) (no (unknown) (unknown) Estimated (units (unkn own) date) Delivery Date unknown) Method Current (unknown) (no (unknown) (unknown) Exercise and (units (u nknown) date) activity, unknown) work/environmenta l/hazards, Sexual activity, X-ray (unknown) (no (unknown) (unknown) FHT 167. Normal (units (unknown) date) adnexa and unknown) ovaries. (unknown) (no (unknown) (unknown) Failed glucola, (units (unknown) date) 3hr GTT needs to unknown) be scheduled, will schedule today. (unknown) (no (unknown) (unknown) Family History (units (unknown) date) (Reviewed unknown) 07/30/22 @ 11:31 by Karina Gaytan DO) (unknown) (no (unknown) (unknown) Father of Baby: (units (unknown) date) same unknown) (unknown) (no (unknown) (unknown) Feeding: breast (units (unknown) date) unknown) (unknown) (no (unknown) (unknown) movement (units (unknown) date) monitoring: unknown) discussed (unknown) (no (unknown) (unknown) First Trimester (units (unknown) date) Education unknown) Checklist (unknown) (no (unknown) (unknown) GERD getting (units (u nknown) date) worse. Tums unknown) doesn't help. - Discussed Pepcid (unknown) (no (unknown) (unknown) Genetic (units (unkno wn) date) Screening + unknown) Counseling (unknown) (no (unknown) (unknown) Genetic (units (unkno wn) date) Screening unknown) (unknown) (no (unknown) (unknown) [facility] requested (unknown) (no (unknown) (unknown) Glucola ordered (units (unknown) date) unknown) (unknown) (no (unknown) (unknown) Grandfather (units (un known) date) Hypertension unknown) (unknown) (no (unknown) (unknown) Grandmother Type (units (unknown) date) 2 diabetes unknown) mellitus (unknown) (no (unknown) (unknown) 3 (units (unkn own) date) Multiple births unknown) (unknown) (no (unknown) (unknown) : 3 (units (unk nown) date) unknown) (unknown) (no (unknown) (unknown) Growth u/s (units (unk nown) date) scheduled 08/10. unknown) (unknown) (no (unknown) (unknown) Growth (units (unkno wn) date) ultrasound unknown) ordered today (unknown) (no (unknown) (unknown) HIV risk (units (unkno wn) date) evaluation: low unknown) risk (unknown) (no (unknown) (unknown) Health Center (units ( unknown) date) Education unknown) (unknown) (no (unknown) (unknown) Health center (units ( unknown) date) information: unknown) nature of practice discussed, personnel (unknown) (no (unknown) (unknown) Hep B-Infant: (units ( unknown) date) Yes unknown) (unknown) (no (unknown) (unknown) Hepatitis C risk (units (unknown) date) evaluation: low unknown) risk (unknown) (no (unknown) (unknown) High risk (units (unkn own) date) type/reason(s): unknown) chronic HTN (unknown) (no (unknown) (unknown) History of (units (unk nown) date) Hepatitis B: No unknown) (unknown) (no (unknown) (unknown) History of (units (unk nown) date) Hepatitis C: No unknown) (unknown) (no (unknown) (unknown) History/Interim (units (unknown) date) Details unknown) (unknown) (no (unknown) (unknown) [facility] (units (u [facility]known) [facility] unknown) (unknown) (no (unknown) (unknown) [facility] (units (u nknown) date) Chorea, Denies unknown) Other inherited genetic or chromosomal disorder, (unknown) (no (unknown) (unknown) Hx # (units (u nknown) date) Pregnancies unknown) Elective abortions (unknown) (no (unknown) (unknown) Hx # Term (units (unkn own) date) Pregnancies 2 unknown) Ectopic pregnancies (unknown) (no (unknown) (unknown) Hx of prior (units (un known) date) unknown) (unknown) (no (unknown) (unknown) Hypertension (units (u nknown) date) unknown) (unknown) (no (unknown) (unknown) [facility] 3 months (units (un known) date) unknown) (unknown) (no (unknown) (unknown) [facility] attempted (units (u nknown) date) unknown) (unknown) (no (unknown) (unknown) ITCHING (units (unkno wn) date) unknown) (unknown) (no (unknown) (unknown) Increased foot (units (unknown) date) swelling. No unknown) headaches, vision changes, RUQ pain. (unknown) (no (unknown) (unknown) (units (u nknown) date) Weight: 5 lbs unknown) 7.6oz (unknown) (no (unknown) (unknown) Longest (units (unknown) date) Sleep: 4 unknown) (unknown) (no (unknown) (unknown) Infant will be (units (unknown) date) adopted?: no unknown) (unknown) (no (unknown) (unknown) 's Sex: (units ( unknown) date) Male unknown) (unknown) (no (unknown) (unknown) Infection (units (unkn own) date) History unknown) (unknown) (no (unknown) (unknown) Infectious (units (unk nown) date) Disease Education unknown) (unknown) (no (unknown) (unknown) Infectious (units (unk nown) date) disease exposure: unknown) chicken pox immunity discussed, hepatitis risk (unknown) (no (unknown) (unknown) Initial Weight: (units (unknown) date) 198 lb unknown) (unknown) (no (unknown) (unknown) Initials (units (unkno wn) date) unknown) (unknown) (no (unknown) (unknown) Intake (units (unkno wn) date) unknown) (unknown) (no (unknown) (unknown) FELICITY (units (unkno wn) date) unknown) (unknown) (no (unknown) (unknown) Legs have been (units (unknown) date) swelling unknown) slightly. She is wearing compression socks, (unknown) (no (unknown) (unknown) Live with (units (unkn own) date) someone with TB unknown) or exposed to TB: No (unknown) (no (unknown) (unknown) Loc: [facility] (units (unkno wn) date) unknown) (unknown) (no (unknown) (unknown) Marital status: (units (unknown) date) unmarried,living unknown) together (unknown) (no (unknown) (unknown) Medical History (units (unknown) date) (Reviewed unknown) 07/30/22 @ 11:31 by Karina Gaytan DO) (unknown) (no (unknown) (unknown) Mild (units (unkno wn) date) intermittent unknown) headaches. Can tell when BP is higher due to vision (unknown) (no (unknown) (unknown) Mother Age: 51 (units (unknown) date) Stroke unknown) (unknown) (no (unknown) (unknown) NSTs have (units (unkn own) date) started, unknown) reassuring thus far. (unknown) (no (unknown) (unknown) NSTs to start (units ( unknown) date) next week. Growth unknown) scan ordered. (unknown) (no (unknown) (unknown) Nausea is (units (unkn own) date) improved, unknown) tolerable now. (unknown) (no (unknown) (unknown) No no 150 absent (units (unknown) date) anatomy ordered unknown) 4wks (unknown) (no (unknown) (unknown) No no 167 absent (units (unknown) date) dating u/s 4wks unknown) (unknown) (no (unknown) (unknown) Notes (units (unkno wn) date) unknown) (unknown) (no (unknown) (unknown) Number of Living (units (unknown) date) Children 2 unknown) (unknown) (no (unknown) (unknown) Number of Weeks (units (unknown) date) Post : 4 unknown) (unknown) (no (unknown) (unknown) Number of (units (unkn own) date) fetuses:: Single unknown) (unknown) (no (unknown) (unknown) Nutrition and (units ( unknown) date) weight gain unknown) counseling: special diet: discussed (unknown) (no (unknown) (unknown) OB Office Visit (units (unknown) date) unknown) (unknown) (no (unknown) (unknown) OB Visit Log (units (u nknown) date) unknown) (unknown) (no (unknown) (unknown) On control (units (unknown) date) at conception?: unknown) Yes (OCP, stopped on learning of ) (unknown) (no (unknown) (unknown) PFSH (units (unkno wn) date) unknown) (unknown) (no (unknown) (unknown) 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 (unknown) (no (unknown) (unknown) PUPP (pruritic (units (unknown) date) urticarial unknown) papules and plaques of ) (unknown) (no (unknown) (unknown) PUPPPS rash (units (un known) date) unknown) (unknown) (no (unknown) (unknown) Para 3 (units (unkno wn) date) Spontaneous unknown) abortions (unknown) (no (unknown) (unknown) Para: 3 (units (unkno wn) date) unknown) (unknown) (no (unknown) (unknown) Partner history (units (unknown) date) of STD: denies hx unknown) (unknown) (no (unknown) (unknown) Partner history (units (unknown) date) of genital unknown) herpes: No (unknown) (no (unknown) (unknown) Partner: Lloyd (units (unknown) date) [place] unknown) (unknown) (no (unknown) (unknown) Past Pregnancies (units (unknown) date) unknown) (unknown) (no (unknown) (unknown) Patient's age 35 (units (unknown) date) years or older as unknown) of estimated date of delivery: No (unknown) (no (unknown) (unknown) Patient: (units (unkno wn) date) Ga Hagan L unknown) MR#: [id number] (unknown) (no (unknown) (unknown) 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 Will be unknown) starting job at [employer] (unknown) (no (unknown) (unknown) Plan to obtain (units (unknown) date) baseline labs at unknown) next appt. Pt with increasing swelling (unknown) (no (unknown) (unknown) Plantar (units (unkno wn) date) fasciitis (-2016) unknown) (unknown) (no (unknown) (unknown) Post (units (un known) date) unknown) (unknown) (no (unknown) (unknown) (units (unkn own) date) Complications: unknown) hypertension (unknown) (no (unknown) (unknown) (units (unkn own) date) History unknown) (unknown) (no (unknown) (unknown) type:: (units (unknown) date) High Risk Other unknown) (unknown) (no (unknown) (unknown) (units (unkno wn) date) Education unknown) (unknown) (no (unknown) (unknown) Initial (units (unknown) date) Assessment unknown) (unknown) (no (unknown) (unknown) (units (unkno wn) date) Specific unknown) Issues/Plans (unknown) (no (unknown) (unknown) (units (unkno wn) date) Testing: unknown) discussed (unknown) (no (unknown) (unknown) Visit (units (unknown) date) unknown) (unknown) (no (unknown) (unknown) (units (unkno wn) date) education packet: unknown) Child education/plan, symptoms, (unknown) (no (unknown) (unknown) Prilosec. (units (unkn own) date) unknown) (unknown) (no (unknown) (unknown) Primary Care (units (u nknown) date) Provider: unknown) Sadie (unknown) (no (unknown) (unknown) Primary Ob (units (unk nown) date) Provider: unknown) Rabia Gooden (unknown) (no (unknown) (unknown) Prior (units (unkno wn) date) GBS-Infected unknown) child: No (unknown) (no (unknown) (unknown) Providers (units (unkn own) date) unknown) (unknown) (no (unknown) (unknown) Psoriasis (units (unkn own) date) unknown) (unknown) (no (unknown) (unknown) Pt did not (units (unk nown) date) complete quad unknown) screen (unknown) (no (unknown) (unknown) Pt has been (units (un known) date) feeling somewhat unknown) winded. No swelling. (unknown) (no (unknown) (unknown) Pt hasn't been (units (unknown) date) checking BP at unknown) home, but when she did check was 130/80. (unknown) (no (unknown) (unknown) Pt is taking (units (u nknown) date) Tums and unknown) Prilosec, GERD still severe. Discussed BID dosing (unknown) (no (unknown) (unknown) Pt with ongoing (units (unknown) date) LE swelling. unknown) Primarily left foot. No pain in (unknown) (no (unknown) (unknown) Pt with (units (unkno wn) date) significant unknown) nausea. Manageable thus far. Declines need for (unknown) (no (unknown) (unknown) Quad screen (units (un known) date) ordered today. unknown) Anatomy scheduled. 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 unknown) Growth u/s scheduled for later today. (unknown) (no (unknown) (unknown) Reminded to (units (un known) date) complete lab work unknown) (unknown) (no (unknown) (unknown) Repeat BP today (units (unknown) date) 132/86. No unknown) headaches, vision changes, RUQ pain, edema. Request (unknown) (no (unknown) (unknown) Rx Clobetasol to (units (unknown) date) help with unknown) itching. (unknown) (no (unknown) (unknown) Safety (units (unkno wn) date) unknown) (unknown) (no (unknown) (unknown) Signed By: (units (unk nown) date) unknown) (unknown) (no (unknown) (unknown) Smoking Status: (units (unknown) date) Never smoker unknown) (unknown) (no (unknown) (unknown) Social History (units (unknown) date) unknown) (unknown) (no (unknown) (unknown) Status post (units (un known) date) appendectomy unknown) () (unknown) (no (unknown) (unknown) Status post (units (un known) date) delivery unknown) (01/06/11) (unknown) (no (unknown) (unknown) Status post (units (un known) date) delivery unknown) (unknown) (no (unknown) (unknown) Sulfa (units (unkno wn) date) (Sulfonamide unknown) Antibiotics) Allergy (Mild, Verified 07/15/22 09:55) (unknown) (no (unknown) (unknown) Support (units (unkno wn) date) Person(s):: unknown) Lloyd (unknown) (no (unknown) (unknown) Surgery date to (units (unknown) date) be requested for unknown) 09/09/22. Packet sent to dental scheduler. (unknown) (no (unknown) (unknown) Surgical History (units (unknown) date) (Reviewed unknown) 07/30/22 @ 11:31 by Karina Gaytan DO) (unknown) (no (unknown) (unknown) Surrogate (units (unkn own) date) ?: no unknown) (unknown) (no (unknown) (unknown) Symptoms since (units (unknown) date) LMP: Reports unknown) nausea, breast tenderness, urinary frequency, (unknown) (no (unknown) (unknown) Teratogen (units (unkn own) date) Exposures since unknown) LMP/Conception: Denies prescription medications, (unknown) (no (unknown) (unknown) Testing (units (unkno wn) date) Education unknown) (unknown) (no (unknown) (unknown) Testing (units (unkno wn) date) education unknown) completed: Spina bifida testing and Cell Free DNA (unknown) (no (unknown) (unknown) Third Trimester (units (unknown) date) Education unknown) Checklist (unknown) (no (unknown) (unknown) This note may (units ( unknown) date) have been all or unknown) partially generated using voice recognition (unknown) (no (unknown) (unknown) Tobacco + (units (unkn own) date) Substance Use unknown) (unknown) (no (unknown) (unknown) Tobacco Status (units (unknown) date) unknown) (unknown) (no (unknown) (unknown) Type of (units (unkno wn) date) Delivery: repeat unknown) C/S (unknown) (no (unknown) (unknown) Type(s) of (units (unk nown) date) exercise: none unknown) (unknown) (no (unknown) (unknown) UProtein Movement (units (unknown) date) PreLabor FHR Fndl unknown) Ht Pres Edema Cerv Exam US/Comment Next Appt (unknown) (no (unknown) (unknown) Ultrasound (units (unk nown) date) Details:: Dating unknown) u/s 02/10/22 - Single IUP. CRL consistent with 8w1d. (unknown) (no (unknown) (unknown) Ultrasound (units (unk nown) date) unknown) (unknown) (no (unknown) (unknown) Varicella/chicke (units (unknown) date) n pox status: unknown) previous disease (unknown) (no (unknown) (unknown) Visit Date: (units (un known) date) 02/10/22 Last unknown) Updated by: Rabia Gooden MD (unknown) (no (unknown) (unknown) Visit Date: (units (un known) date) 03/16/22 Last unknown) Updated by: Rabia Gooden MD (unknown) (no (unknown) (unknown) Visit Date: (units (un known) date) 04/15/22 Last unknown) Updated by: Rabia Gooden MD (unknown) (no (unknown) (unknown) Visit Date: (units (un known) date) 05/13/22 Last unknown) Updated by: Rabia Gooden MD (unknown) (no (unknown) (unknown) Visit Date: (units (un known) date) 06/17/22 Last unknown) Updated by: Rabia Gooden MD (unknown) (no (unknown) (unknown) Visit Date: (units (un known) date) 07/01/22 Last unknown) Updated by: Rabia Gooden MD (unknown) (no (unknown) (unknown) Visit Date: (units (un known) date) 07/15/22 Last unknown) Updated by: Rabia Gooden MD (unknown) (no (unknown) (unknown) Visit Date: (units (un known) date) 07/29/22 Last unknown) Updated by: Rabia Gooden MD (unknown) (no (unknown) (unknown) Visit Reasons: (units (unknown) date) post C section unknown) f/u (unknown) (no (unknown) (unknown) Vitamin (units (unkno wn) date) K-Infant: Yes unknown) (unknown) (no (unknown) (unknown) Vitamins and (units (u nknown) date) iron, Diet and unknown) weight gain, Fish and mercury intake, Caffeine use, (unknown) (no (unknown) (unknown) WG (units (unkno wn) date) unknown) (unknown) (no (unknown) (unknown) 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 works at (unknown) (no (unknown) (unknown) Yes no 130 27 (units ( unknown) date) absent glucola unknown) ordered 2 (unknown) (no (unknown) (unknown) Yes no 132 28 (units ( unknown) date) absent 2wks unknown) (unknown) (no (unknown) (unknown) Yes no 134 31 (units ( unknown) date) absent 2wks unknown) (unknown) (no (unknown) (unknown) Yes no 140 30 (units ( unknown) date) absent 2wks unknown) (unknown) (no (unknown) (unknown) Yes no 144 21 (units ( unknown) date) abse unknown) (unknown) (no (unknown) (unknown) Yes yes 140 (units (un known) date) absent unknown) (unknown) (no (unknown) (unknown) Zika virus (units (unk nown) date) exposure: No unknown) (unknown) (no (unknown) (unknown) alcohol intake: (units (unknown) date) former unknown) (unknown) (no (unknown) (unknown) amoxicillin (units (un known) date) Allergy (Mild, unknown) Verified 07/15/22 09:55) (unknown) (no (unknown) (unknown) anyone in either (units (unknown) date) family with: unknown) (unknown) (no (unknown) (unknown) 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 (units (unk nown) date) unknown) (unknown) (no (unknown) (unknown) azithromycin (units (u nknown) date) Allergy (Mild, unknown) Verified 07/15/22 09:55) (unknown) (no (unknown) (unknown) baby's father (units ( unknown) date) had a child with unknown) defects not listed above and Denies Other (unknown) (no (unknown) (unknown) caffeine: Yes (units ( unknown) date) unknown) (unknown) (no (unknown) (unknown) carbon monox (units (u nknown) date) detector in home: unknown) Yes (unknown) (no (unknown) (unknown) changes. Mild (units ( unknown) date) headaches - unknown) usually relieved quickly, stressed at work. No RUQ (unknown) (no (unknown) (unknown) changes. Mother (units (unknown) date) with unknown) due to severe pre-eclampsia at 23wks. (unknown) (no (unknown) (unknown) chlorhexidine (units ( unknown) date) Adverse Reaction unknown) (Intermediate, Verified 07/15/22 09:55) (unknown) (no (unknown) (unknown) consistent with (units (unknown) date) PUPPS, but bile unknown) acids ordered to ensure no cholestasis as well. (unknown) (no (unknown) (unknown) current (units (unkno wn) date) occupational unknown) exposures/hazards : No (unknown) (no (unknown) (unknown) daily servings (units (unknown) date) fruits/ve-1 unknown) (unknown) (no (unknown) (unknown) described, visit (units (unknown) date) schedule unknown) reviewed, ultrasounds policy reviewed, coverage 24 (unknown) (no (unknown) (unknown) discussed, (units (unk nown) date) tuberculosis unknown) exposure discussed, CMV discussed, Toxoplasmosis (unknown) (no (unknown) (unknown) disorders, (units (unk nown) date) Denies Cystic unknown) Fibrosis, Denies Mental Retardation/Autis m, Denies (unknown) (no (unknown) (unknown) do you feel safe (units (unknown) date) at home: Yes unknown) (unknown) (no (unknown) (unknown) during the past (units (unknown) date) year weight has: unknown) remained stable (unknown) (no (unknown) (unknown) eclampsia - (units (un known) date) diagnosed 08/04 unknown) at 33w6d. Started Nifedipine 30mg XR. Plan on (unknown) (no (unknown) (unknown) education level: (units (unknown) date) other unknown) (unknown) (no (unknown) (unknown) exposure, (units (unkn own) date) Medication use, unknown) Sauna/hot tub use, Dental care, Travel and Influenza (unknown) (no (unknown) (unknown) feet/calves. (units (u nknown) date) Discussed unknown) elevation, water, decreased salt intake. (unknown) (no (unknown) (unknown) fire (units (unkno wn) date) extinguisher in unknown) home: Yes (unknown) (no (unknown) (unknown) firearms in (units (un known) date) home: No unknown) (unknown) (no (unknown) (unknown) have occurred. (units (unknown) date) If there are any unknown) questions, please contact the Medical Records (unknown) (no (unknown) (unknown) hours a day and (units (unknown) date) participation of unknown) father in care and office visits (unknown) (no (unknown) (unknown) household (units (unkn own) date) members: unknown) significant other and children (unknown) (no (unknown) (unknown) housing: (units (unkno wn) date) apartment unknown) (unknown) (no (unknown) (unknown) hyperemesis 1st (units (unknown) date) trimester unknown) (unknown) (no (unknown) (unknown) irritability, (units ( unknown) date) bloating and unknown) other (unknown) (no (unknown) (unknown) labs today (units (unk nown) date) unknown) (unknown) (no (unknown) (unknown) latex Adverse (units ( unknown) date) Reaction (Mild, unknown) Verified 07/15/22 09:55) (unknown) (no (unknown) (unknown) lives (units (unkno wn) date) independently: unknown) Yes (unknown) (no (unknown) (unknown) marital status: (units (unknown) date) unmarried,living unknown) together (unknown) (no (unknown) (unknown) may occur. (units (unk nown) date) Occasional unknown) wrong-word or 'sound-alike' substitutions may have (unknown) (no (unknown) (unknown) medication (units (unk nown) date) 110/90 was the unknown) highest, usually diastolic in the 80s. No vision (unknown) (no (unknown) (unknown) mester if well (units (unknown) date) controlled (2nd unknown) trimester normal). Started baby aspirin at 12 (unknown) (no (unknown) (unknown) nt (units (unkno wn) date) unknown) (unknown) (no (unknown) (unknown) number of (units (unkn own) date) children: 2 unknown) (unknown) (no (unknown) (unknown) occupational (units (u nknown) date) status: employed unknown) (unknown) (no (unknown) (unknown) occurred due to (units (unknown) date) the inherent unknown) limitations of voice recognition software. Please (unknown) (no (unknown) (unknown) other Camron (units (un known) date) unknown) (unknown) (no (unknown) (unknown) other Jeaneth (units (un known) date) unknown) (unknown) (no (unknown) (unknown) pain. Pt will (units ( unknown) date) complete 24hr unknown) protein this week. (unknown) (no (unknown) (unknown) pets and (units (unkno wn) date) animals: Yes (1 unknown) cat (pt is not managing litter box)) (unknown) (no (unknown) (unknown) precautions, (units (u nknown) date) Listeriosis unknown) prevention and Rubella Immunization (unknown) (no (unknown) (unknown) pt check her BPs (units (unknown) date) at home daily and unknown) bring log to next appt. (unknown) (no (unknown) (unknown) read the note (units ( unknown) date) carefully and unknown) recognize, using context, where these substitutions (unknown) (no (unknown) (unknown) seatbelt use: (units ( unknown) date) always unknown) (unknown) (no (unknown) (unknown) second hand (units (un known) date) exposure: No unknown) (unknown) (no (unknown) (unknown) seeing spots (units (u nknown) date) primarily later unknown) in the day. Increase Labetalol to 300mg BID. (unknown) (no (unknown) (unknown) software. (units (unkn own) date) Although every unknown) effort is made to edit content, white sidewall tire buffer errors (unknown) (no (unknown) (unknown) soon. (units (unkno wn) date) unknown) (unknown) (no (unknown) (unknown) special fly (units ( unknown) date) needs: No unknown) (unknown) (no (unknown) (unknown) substance use (units ( unknown) date) type: marijuana unknown) (unknown) (no (unknown) (unknown) to Labetalol (units (u nknown) date) with . unknown) BP quite elevated today. Increase to 200mg daily (unknown) (no (unknown) (unknown) today. Acutely (units (unknown) date) worse today. BPs unknown) at home have been 120/70-80s. - Will obtain (unknown) (no (unknown) (unknown) today. Baseline (units (unknown) date) pre-eclampsia unknown) labs ordered. (unknown) (no (unknown) (unknown) vaccine (units (unkno wn) date) unknown) (unknown) (no (unknown) (unknown) water heater (units (u nknown) date) temp set < 120 unknown) deg: Yes (Will check and adjust if needed) (unknown) (no (unknown) (unknown) weekly labs. (units (u nknown) date) testing unknown) still. Delivery at 37wks (requested 08/26/22) (unknown) (no (unknown) (unknown) weeks. NSTs (units (un known) date) starting at unknown) 32wks. Serial growth ultrasounds (last 08/04). Pre (unknown) (no (unknown) (unknown) well-balanced (units ( unknown) date) diet: about half unknown) the time (unknown) (no (unknown) (unknown) wks (units (unkno wn) date) unknown) (unknown) (no (unknown) (unknown) working on (units (unk nown) date) cutting down salt unknown) intake. (unknown) (no (unknown) (unknown) working smoke (units ( unknown) date) detector in home: unknown) Yes Result panel 23 (unknown) (no (unknown) (unknown) (no value) (units (unk nown) date) unknown) (unknown) (no (unknown) (unknown) (+0 oz) 146/80 (units (unknown) date) unknown) (unknown) (no (unknown) (unknown) (+10 lb) 120/82 (units (unknown) date) unknown) (unknown) (no (unknown) (unknown) (+10 lb) 140/86 (units (unknown) date) unknown) (unknown) (no (unknown) (unknown) (+10 lb) 140/90 (units (unknown) date) unknown) (unknown) (no (unknown) (unknown) (+3 lb) 160/116 (units (unknown) date) unknown) (unknown) (no (unknown) (unknown) (+4 oz) 126/70 (units (unknown) date) unknown) (unknown) (no (unknown) (unknown) (+6 lb) 134/84 (units (unknown) date) unknown) (unknown) (no (unknown) (unknown) (+9 lb) 136/90 (units (unknown) date) unknown) (unknown) (no (unknown) (unknown) Genetic (units (unkn own) date) Screening/Teratol unknown) ogy Counseling - Includes patient, baby's father, or (unknown) (no (unknown) (unknown) -?-?-?-?-?-?-?-? (units (unknown) date) -?-?-?-? unknown) (unknown) (no (unknown) (unknown) [id number] (units (unkno wn) date) unknown) (unknown) (no (unknown) (unknown) 09/02/22 (units (unkno wn) date) unknown) (unknown) (no (unknown) (unknown) 09/02/22] (units (unkn own) date) unknown) (unknown) (no (unknown) (unknown) 12/10/14 39 8 lb (units (unknown) date) 3 oz Female unknown) live - full term (unknown) (no (unknown) (unknown) 01/06/11 41 1 9 (units (unknown) date) lb 1 oz Male unknown) live - full term (unknown) (no (unknown) (unknown) 02/10/22 (units (unkno wn) date) unknown) (unknown) (no (unknown) (unknown) 03/16/22 (units (unkno wn) date) unknown) (unknown) (no (unknown) (unknown) 04/15/22 (units (unkno wn) date) unknown) (unknown) (no (unknown) (unknown) 05/13/22 (units (unkno wn) date) unknown) (unknown) (no (unknown) (unknown) 06/17/22 (units (unkno wn) date) unknown) (unknown) (no (unknown) (unknown) 07/01/22 (units (unkno wn) date) unknown) (unknown) (no (unknown) (unknown) 07/15/22 (units (unkno wn) date) unknown) (unknown) (no (unknown) (unknown) 07/29/22 (units (unkno wn) date) unknown) (unknown) (no (unknown) (unknown) 13w 5d 198 lb 4 (units (unknown) date) oz unknown) (unknown) (no (unknown) (unknown) 152/116 (units (unkno wn) date) unknown) (unknown) (no (unknown) (unknown) 15:44 (units (unkno wn) date) unknown) (unknown) (no (unknown) (unknown) 18w 0d 198 lb (units ( unknown) date) unknown) (unknown) (no (unknown) (unknown) 2+ 4wks (units (unkno wn) date) unknown) (unknown) (no (unknown) (unknown) 22w 0d 204 lb (units ( unknown) date) unknown) (unknown) (no (unknown) (unknown) 27w 0d 207 lb (units ( unknown) date) unknown) (unknown) (no (unknown) (unknown) 29w 0d 208 lb (units ( unknown) date) unknown) (unknown) (no (unknown) (unknown) 31w 0d 208 lb (units ( unknown) date) unknown) (unknown) (no (unknown) (unknown) 33w 0d 208 lb (units ( unknown) date) unknown) (unknown) (no (unknown) (unknown) 4wks (units (unkno wn) date) unknown) (unknown) (no (unknown) (unknown) 02/10, 300mg BID (units (unknown) date) 06/17. Baseline unknown) pre-eclampsia labs ordered. Will need qtri (unknown) (no (unknown) (unknown) 8w 6d 201 lb (units (u nknown) date) unknown) (unknown) (no (unknown) (unknown) Abdomen with a (units (unknown) date) very itchy rash. unknown) Nothing on her hands and feet. Most (unknown) (no (unknown) (unknown) Abnormal lab (units (u nknown) date) values 1st unknown) trimester: discussed (unknown) (no (unknown) (unknown) Abnormal lab (units (u nknown) date) values 3rd unknown) trimester: discussed (unknown) (no (unknown) (unknown) Accompanied by: (units (unknown) date) Self / Same As unknown) Patient (unknown) (no (unknown) (unknown) Add'l Plan (units (unk nown) date) Details unknown) (unknown) (no (unknown) (unknown) Age/Sex: 32 / F (units (unknown) date) Date of Service: unknown) (unknown) (no (unknown) (unknown) Allergies (units (unkn own) date) unknown) (unknown) (no (unknown) (unknown) [facility] (units (unknown) date) Medicine unknown) (unknown) (no (unknown) (unknown) [place], [place] (units ( unknown) date) [id number] unknown) (unknown) (no (unknown) (unknown) Anatomy scan (units (u nknown) date) normal, 88th unknown) percentile (unknown) (no (unknown) (unknown) Anatomy u/s (units (un known) date) ordered unknown) (unknown) (no (unknown) (unknown) Anesthesia (units (unk nown) date) preference: Other unknown) (spinal for c/s) (unknown) (no (unknown) (unknown) Anesthesia/Analg (units (unknown) date) esia plans: unknown) discussed (unknown) (no (unknown) (unknown) Aneuploidy (units (unk nown) date) Screening unknown) Offered: Accepted (unknown) (no (unknown) (unknown) Antibiotic Eye (units (unknown) date) Drops-: Yes unknown) (unknown) (no (unknown) (unknown) Anticipated (units (un known) date) course of unknown) care: discussed (unknown) (no (unknown) (unknown) Assessment and (units (unknown) date) Plan unknown) (unknown) (no (unknown) (unknown) Asymptomatic. (units ( unknown) date) Vision changes unknown) improved with iron supplement. (unknown) (no (unknown) (unknown) Attending Dr: (units ( unknown) date) Rabia Gooden MD unknown) (unknown) (no (unknown) (unknown) BP 140/84 (units (unkn own) date) unknown) (unknown) (no (unknown) (unknown) BPs at home (units (un known) date) diastolic 90-93, unknown) systolic in 130s. No headaches. Pt is (unknown) (no (unknown) (unknown) BPs at home have (units (unknown) date) been 130/80-90s. unknown) Increase Labetalol to 400mg BID. (unknown) (no (unknown) (unknown) BPs at home have (units (unknown) date) been in normal unknown) range. (unknown) (no (unknown) (unknown) BPs have been (units ( unknown) date) consistently in unknown) good range, 110s/60s in general. (unknown) (no (unknown) (unknown) (units (unkno wn) date) Plan/Preferences unknown) (unknown) (no (unknown) (unknown) Planning (units (unknown) date) unknown) (unknown) (no (unknown) (unknown) Blister (units (unkno wn) date) unknown) (unknown) (no (unknown) (unknown) Blood Pressure (units (unknown) date) Location Lt unknown) brachial (unknown) (no (unknown) (unknown) Blood (units (unkno wn) date) transfusions?: unknown) yes (unknown) (no (unknown) (unknown) Breastfeed Preg (units (unknown) date) Comp Name unknown) (unknown) (no (unknown) (unknown) Checking BPs at (units (unknown) date) home - before unknown) medication BPs usually 140s/80s. After (unknown) (no (unknown) (unknown) Chronic HTN - (units ( unknown) date) Switched to unknown) Labetalol with . Increased to 200mg BID (unknown) (no (unknown) (unknown) Chronic HTN (units (un known) date) started January unknown) 2020, on Lisinopril. Added Carvedilol. Switched (unknown) (no (unknown) (unknown) Chronic cough (units ( unknown) date) (-2000) unknown) (unknown) (no (unknown) (unknown) Confirmed (units (unkn own) date) 09/02/22] unknown) (unknown) (no (unknown) (unknown) Current Estimate (units (unknown) date) 09/16/22 LMP unknown) (Certain) 38w 0d (unknown) (no (unknown) (unknown) Current (units (unkno wn) date) History unknown) (unknown) (no (unknown) (unknown) : 1990 (units (unknown) date) Acct:[id number] unknown) (unknown) (no (unknown) (unknown) Date of positive (units (unknown) date) home unknown) test: 12/30/21 (unknown) (no (unknown) (unknown) Date (units (unkno wn) date) unknown) (unknown) (no (unknown) (unknown) Dating u/s (units (unk nown) date) concordant with unknown) LMP, keep CLAU 09/16/22. (unknown) (no (unknown) (unknown) Del. Date (units (unkn own) date) GA/Weeks Labor unknown) Lgth Wt Sex Route Outcome Anesthesia Place (unknown) (no (unknown) (unknown) Delayed cord (units (u nknown) date) clamping: Yes unknown) (unknown) (no (unknown) (unknown) Delivery Date: (units (unknown) date) 12/10/14 Last unknown) Updated by: Bianca Arenas R.N. (unknown) (no (unknown) (unknown) Delivery Date: (units (unknown) date) 01/06/11 Last unknown) Updated by: Bianca Arenas R.N. (unknown) (no (unknown) (unknown) Delivery Date: (units (unknown) date) 08/04/22 unknown) (unknown) (no (unknown) (unknown) Delv (units (unkno wn) date) unknown) (unknown) (no (unknown) (unknown) Denies Congenital (units (unknown) date) Heart Defect, unknown) Denies Down Syndrome, Denies Muscular Dystrophy, (unknown) (no (unknown) (unknown) Denies Maternal (units (unknown) date) Metabolic unknown) Disorder (EG,TYPE 1 Diabetes, PKU), Denies Patient or (unknown) (no (unknown) (unknown) Denies Neural (units ( unknown) date) Tube Defect unknown) (Meningomyelocele , Spina Bifida, or Anencephaly), (unknown) (no (unknown) (unknown) Denies Sickle (units ( unknown) date) Cell Disease or unknown) Trait (), Denies Hemophilia or other blood (unknown) (no (unknown) (unknown) Denies Willie-Sachs (units (unknown) date) (Ashkenazi unknown) Yarsani, Cajun, [place] Romanian), Denies Fred (unknown) (no (unknown) (unknown) Denies other (units (u nknown) date) unknown) (unknown) (no (unknown) (unknown) Denies over the (units (unknown) date) counter unknown) medications, Denies alcohol, Denies illicit drugs and (unknown) (no (unknown) (unknown) Depression (units (unk nown) date) unknown) (unknown) (no (unknown) (unknown) Depression: (units (un known) date) discussed unknown) (unknown) (no (unknown) (unknown) Dept at (units (unkno wn) date) . unknown) (unknown) (no (unknown) (unknown) Desires quad (units (u nknown) date) screen for unknown) genetic testing. (unknown) (no (unknown) (unknown) Diet and (units (unkno wn) date) Exercise unknown) (unknown) (no (unknown) (unknown) Disease (units (unkno wn) date) (Ashkenazi unknown) Yarsani), Denies Familial Dysautonomia (Ashkenazi Yarsani), (unknown) (no (unknown) (unknown) Documented By: (units (unknown) date) Rabia Gooden MD unknown) 01/11/23 1301 (unknown) (no (unknown) (unknown) Draft (units (unkno wn) date) unknown) (unknown) (no (unknown) (unknown) CLAU Calculator (units (unknown) date) unknown) (unknown) (no (unknown) (unknown) EGA Weight BP (units ( unknown) date) UGlucose unknown) (unknown) (no (unknown) (unknown) Estimated (units (unkn own) date) Delivery Date unknown) Method Current (unknown) (no (unknown) (unknown) Exercise and (units (u nknown) date) activity, unknown) work/environmenta l/hazards, Sexual activity, X-ray (unknown) (no (unknown) (unknown) FHT 167. Normal (units (unknown) date) adnexa and unknown) ovaries. (unknown) (no (unknown) (unknown) Failed glucola, (units (unknown) date) 3hr GTT needs to unknown) be scheduled, will schedule today. (unknown) (no (unknown) (unknown) Family History (units (unknown) date) (Reviewed unknown) 07/30/22 @ 11:31 by Karina Gaytan DO) (unknown) (no (unknown) (unknown) Father of Baby: (units (unknown) date) same unknown) (unknown) (no (unknown) (unknown) Feeding: breast (units (unknown) date) unknown) (unknown) (no (unknown) (unknown) movement (units (unknown) date) monitoring: unknown) discussed (unknown) (no (unknown) (unknown) First Trimester (units (unknown) date) Education unknown) Checklist (unknown) (no (unknown) (unknown) GERD getting (units (u nknown) date) worse. Tums unknown) doesn't help. - Discussed Pepcid (unknown) (no (unknown) (unknown) Genetic (units (unkno wn) date) Screening + unknown) Counseling (unknown) (no (unknown) (unknown) Genetic (units (unkno wn) date) Screening unknown) (unknown) (no (unknown) (unknown) Glucola competed (units (unknown) date) 07/14 at [facility] unknown) - records requested (unknown) (no (unknown) (unknown) Glucola ordered (units (unknown) date) unknown) (unknown) (no (unknown) (unknown) Grandfather (units (un known) date) Hypertension unknown) (unknown) (no (unknown) (unknown) Grandmother Type (units (unknown) date) 2 diabetes unknown) mellitus (unknown) (no (unknown) (unknown) 3 (units (unkn own) date) Multiple births unknown) (unknown) (no (unknown) (unknown) : 3 (units (unk nown) date) unknown) (unknown) (no (unknown) (unknown) Growth u/s (units (unk nown) date) scheduled 08/10. unknown) (unknown) (no (unknown) (unknown) Growth (units (unkno wn) date) ultrasound unknown) ordered today (unknown) (no (unknown) (unknown) HIV risk (units (unkno wn) date) evaluation: low unknown) risk (unknown) (no (unknown) (unknown) Health Center (units ( unknown) date) Education unknown) (unknown) (no (unknown) (unknown) Health center (units ( unknown) date) information: unknown) nature of practice discussed, personnel (unknown) (no (unknown) (unknown) Hep B-: (units ( unknown) date) Yes unknown) (unknown) (no (unknown) (unknown) Hepatitis C risk (units (unknown) date) evaluation: low unknown) risk (unknown) (no (unknown) (unknown) High risk (units (unkn own) date) type/reason(s): unknown) chronic HTN (unknown) (no (unknown) (unknown) History of (units (unk nown) date) Hepatitis B: No unknown) (unknown) (no (unknown) (unknown) History of (units (unk nown) date) Hepatitis C: No unknown) (unknown) (no (unknown) (unknown) History/Interim (units (unknown) date) Details unknown) (unknown) (no (unknown) (unknown) [facility] (units (u [facility]known) [facility]) unknown) (unknown) (no (unknown) (unknown) [facility] (units (u nknown) date) Chorea, Denies unknown) Other inherited genetic or chromosomal disorder, (unknown) (no (unknown) (unknown) Hx # (units (u nknown) date) Pregnancies unknown) Elective abortions (unknown) (no (unknown) (unknown) Hx # Term (units (unkn own) date) Pregnancies 2 unknown) Ectopic pregnancies (unknown) (no (unknown) (unknown) Hx of prior (units (un known) date) unknown) (unknown) (no (unknown) (unknown) Hypertension (units (u nknown) date) unknown) (unknown) (no (unknown) (unknown) [facility] 3 months (units (un known) date) unknown) (unknown) (no (unknown) (unknown) [facility] attempted (units (u nknown) date) unknown) (unknown) (no (unknown) (unknown) ITCHING (units (unkno wn) date) unknown) (unknown) (no (unknown) (unknown) Increased foot (units (unknown) date) swelling. No unknown) headaches, vision changes, RUQ pain. (unknown) (no (unknown) (unknown) (units (u nknown) date) Weight: 5 lbs unknown) 7.6oz (unknown) (no (unknown) (unknown) Longest (units (unknown) date) Sleep: 4 unknown) (unknown) (no (unknown) (unknown) Infant will be (units (unknown) date) adopted?: no unknown) (unknown) (no (unknown) (unknown) 's Sex: (units ( unknown) date) Male unknown) (unknown) (no (unknown) (unknown) Infection (units (unkn own) date) History unknown) (unknown) (no (unknown) (unknown) Infectious (units (unk nown) date) Disease Education unknown) (unknown) (no (unknown) (unknown) Infectious (units (unk nown) date) disease exposure: unknown) chicken pox immunity discussed, hepatitis risk (unknown) (no (unknown) (unknown) Initial Weight: (units (unknown) date) 198 lb unknown) (unknown) (no (unknown) (unknown) Initials (units (unkno wn) date) unknown) (unknown) (no (unknown) (unknown) Intake Note: (units (u nknown) date) unknown) (unknown) (no (unknown) (unknown) Intake (units (unkno wn) date) unknown) (unknown) (no (unknown) (unknown) FELICITY (units (unkno wn) date) unknown) (unknown) (no (unknown) (unknown) Legs have been (units (unknown) date) swelling unknown) slightly. She is wearing compression socks, (unknown) (no (unknown) (unknown) Live with (units (unkn own) date) someone with TB unknown) or exposed to TB: No (unknown) (no (unknown) (unknown) Loc: [facility] (units (unkno wn) date) unknown) (unknown) (no (unknown) (unknown) Marital status: (units (unknown) date) unmarried,living unknown) together (unknown) (no (unknown) (unknown) Medical History (units (unknown) date) (Reviewed unknown) 07/30/22 @ 11:31 by Karina Gaytan DO) (unknown) (no (unknown) (unknown) Medications (units (un known) date) unknown) (unknown) (no (unknown) (unknown) Mild (units (unkno wn) date) intermittent unknown) headaches. Can tell when BP is higher due to vision (unknown) (no (unknown) (unknown) Mother Age: 51 (units (unknown) date) Stroke unknown) (unknown) (no (unknown) (unknown) NSTs have (units (unkn own) date) started, unknown) reassuring thus far. (unknown) (no (unknown) (unknown) NSTs to start (units ( unknown) date) next week. Growth unknown) scan ordered. (unknown) (no (unknown) (unknown) Nausea is (units (unkn own) date) improved, unknown) tolerable now. (unknown) (no (unknown) (unknown) No no 150 absent (units (unknown) date) anatomy ordered unknown) 4wks (unknown) (no (unknown) (unknown) No no 167 absent (units (unknown) date) dating u/s 4wks unknown) (unknown) (no (unknown) (unknown) Notes (units (unkno wn) date) unknown) (unknown) (no (unknown) (unknown) Number of Living (units (unknown) date) Children 2 unknown) (unknown) (no (unknown) (unknown) Number of Weeks (units (unknown) date) Post : 4 unknown) (unknown) (no (unknown) (unknown) Number of (units (unkn own) date) fetuses:: Single unknown) (unknown) (no (unknown) (unknown) Nutrition and (units ( unknown) date) weight gain unknown) counseling: special diet: discussed (unknown) (no (unknown) (unknown) OB Office Visit (units (unknown) date) unknown) (unknown) (no (unknown) (unknown) OB Visit Log (units (u nknown) date) unknown) (unknown) (no (unknown) (unknown) On control (units (unknown) date) at conception?: unknown) Yes (OCP, stopped on learning of ) (unknown) (no (unknown) (unknown) Oxygen Delivery (units (unknown) date) Method room air unknown) (unknown) (no (unknown) (unknown) PFSH (units (unkno wn) date) unknown) (unknown) (no (unknown) (unknown) 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 (unknown) (no (unknown) (unknown) PUPP (pruritic (units (unknown) date) urticarial unknown) papules and plaques of ) (unknown) (no (unknown) (unknown) PUPPPS rash (units (un known) date) unknown) (unknown) (no (unknown) (unknown) Para 3 (units (unkno wn) date) Spontaneous unknown) abortions (unknown) (no (unknown) (unknown) Para: 3 (units (unkno wn) date) unknown) (unknown) (no (unknown) (unknown) Partner history (units (unknown) date) of STD: denies hx unknown) (unknown) (no (unknown) (unknown) Partner history (units (unknown) date) of genital unknown) herpes: No (unknown) (no (unknown) (unknown) Partner: Lloyd (units (unknown) date) [place] unknown) (unknown) (no (unknown) (unknown) Past Pregnancies (units (unknown) date) unknown) (unknown) (no (unknown) (unknown) Patient's age 35 (units (unknown) date) years or older as unknown) of estimated date of delivery: No (unknown) (no (unknown) (unknown) Patient: (units (unkno wn) date) [place] L unknown) MR#: [id number] (unknown) (no (unknown) (unknown) 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 Will be unknown) starting job at [employer] (unknown) (no (unknown) (unknown) Plan to obtain (units (unknown) date) baseline labs at unknown) next appt. Pt with increasing swelling (unknown) (no (unknown) (unknown) Plantar (units (unkno wn) date) fasciitis (-2016) unknown) (unknown) (no (unknown) (unknown) Position Sitting (units (unknown) date) unknown) (unknown) (no (unknown) (unknown) Post (units (un known) date) unknown) (unknown) (no (unknown) (unknown) (units (unkn own) date) Complications: unknown) hypertension (unknown) (no (unknown) (unknown) (units (unkn own) date) History unknown) (unknown) (no (unknown) (unknown) type:: (units (unknown) date) High Risk Other unknown) (unknown) (no (unknown) (unknown) (units (unkno wn) date) Education unknown) (unknown) (no (unknown) (unknown) Initial (units (unknown) date) Assessment unknown) (unknown) (no (unknown) (unknown) (units (unkno wn) date) Specific unknown) Issues/Plans (unknown) (no (unknown) (unknown) (units (unkno wn) date) Testing: unknown) discussed (unknown) (no (unknown) (unknown) Visit (units (unknown) date) unknown) (unknown) (no (unknown) (unknown) (units (unkno wn) date) education packet: unknown) Child education/plan, symptoms, (unknown) (no (unknown) (unknown) Prilosec. (units (unkn own) date) unknown) (unknown) (no (unknown) (unknown) Primary Care (units (u nknown) date) Provider: unknown) Sadie (unknown) (no (unknown) (unknown) Primary Ob (units (unk nown) date) Provider: unknown) Rabia Gooden (unknown) (no (unknown) (unknown) Prior (units (unkno wn) date) GBS-Infected unknown) child: No (unknown) (no (unknown) (unknown) Providers (units (unkn own) date) unknown) (unknown) (no (unknown) (unknown) Psoriasis (units (unkn own) date) unknown) (unknown) (no (unknown) (unknown) Pt arrives for a (units (unknown) date) post unknown) appointment. Delivered at 33 wks and 6 days. (unknown) (no (unknown) (unknown) Pt did not (units (unk nown) date) complete quad unknown) screen (unknown) (no (unknown) (unknown) Pt has been (units (un known) date) feeling somewhat unknown) winded. No swelling. (unknown) (no (unknown) (unknown) Pt hasn't been (units (unknown) date) checking BP at unknown) home, but when she did check was 130/80. (unknown) (no (unknown) (unknown) Pt is taking (units (u nknown) date) Tums and unknown) Prilosec, GERD still severe. Discussed BID dosing (unknown) (no (unknown) (unknown) Pt with ongoing (units (unknown) date) LE swelling. unknown) Primarily left foot. No pain in (unknown) (no (unknown) (unknown) Pt with (units (unkno wn) date) significant unknown) nausea. Manageable thus far. Declines need for (unknown) (no (unknown) (unknown) Pulse 90 (units (unkno wn) date) unknown) (unknown) (no (unknown) (unknown) Pulse Oximetry (units (unknown) date) (%) 99 unknown) (unknown) (no (unknown) (unknown) Pulse Source (units (u nknown) date) Monitor unknown) (unknown) (no (unknown) (unknown) Quad screen (units (un known) date) ordered today. unknown) Anatomy scheduled. 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 unknown) Growth u/s scheduled for later today. (unknown) (no (unknown) (unknown) Reminded to (units (un known) date) complete lab work unknown) (unknown) (no (unknown) (unknown) Repeat BP today (units (unknown) date) 132/86. No unknown) headaches, vision changes, RUQ pain, edema. Request (unknown) (no (unknown) (unknown) Rx Clobetasol to (units (unknown) date) help with unknown) itching. (unknown) (no (unknown) (unknown) Safety (units (unkno wn) date) unknown) (unknown) (no (unknown) (unknown) Signed By: (units (unk nown) date) unknown) (unknown) (no (unknown) (unknown) Smoking Status: (units (unknown) date) Never smoker unknown) (unknown) (no (unknown) (unknown) Social History (units (unknown) date) unknown) (unknown) (no (unknown) (unknown) Status post (units (un known) date) appendectomy unknown) () (unknown) (no (unknown) (unknown) Status post (units (un known) date) delivery unknown) (01/06/11) (unknown) (no (unknown) (unknown) Status post (units (un known) date) delivery unknown) (unknown) (no (unknown) (unknown) Sulfa (units (unkno wn) date) (Sulfonamide unknown) Antibiotics) Allergy (Mild, Verified 09/02/22 15:44) (unknown) (no (unknown) (unknown) Support (units (unkno wn) date) Person(s):: unknown) Lloyd (unknown) (no (unknown) (unknown) Surgery date to (units (unknown) date) be requested for unknown) 09/09/22. Packet sent to dental scheduler. (unknown) (no (unknown) (unknown) Surgical History (units (unknown) date) (Reviewed unknown) 07/30/22 @ 11:31 by Karina Gaytan DO) (unknown) (no (unknown) (unknown) Surrogate (units (unkn own) date) ?: no unknown) (unknown) (no (unknown) (unknown) Symptoms since (units (unknown) date) LMP: Reports unknown) nausea, breast tenderness, urinary frequency, (unknown) (no (unknown) (unknown) Teratogen (units (unkn own) date) Exposures since unknown) LMP/Conception: Denies prescription medications, (unknown) (no (unknown) (unknown) Testing (units (unkno wn) date) Education unknown) (unknown) (no (unknown) (unknown) Testing (units (unkno wn) date) education unknown) completed: Spina bifida testing and Cell Free DNA (unknown) (no (unknown) (unknown) Third Trimester (units (unknown) date) Education unknown) Checklist (unknown) (no (unknown) (unknown) This note may (units ( unknown) date) have been all or unknown) partially generated using voice recognition (unknown) (no (unknown) (unknown) Tobacco + (units (unkn own) date) Substance Use unknown) (unknown) (no (unknown) (unknown) Tobacco Status (units (unknown) date) unknown) (unknown) (no (unknown) (unknown) Type of (units (unkno wn) date) Delivery: repeat unknown) C/S (unknown) (no (unknown) (unknown) Type(s) of (units (unk nown) date) exercise: none unknown) (unknown) (no (unknown) (unknown) UProtein Movement (units (unknown) date) PreLabor FHR Fndl unknown) Ht Pres Edema Cerv Exam US/Comment Next Appt (unknown) (no (unknown) (unknown) Ultrasound (units (unk nown) date) Details:: Dating unknown) u/s 02/10/22 - Single IUP. CRL consistent with 8w1d. (unknown) (no (unknown) (unknown) Ultrasound (units (unk nown) date) unknown) (unknown) (no (unknown) (unknown) Varicella/chicke (units (unknown) date) n pox status: unknown) previous disease (unknown) (no (unknown) (unknown) Visit Date: (units (un known) date) 02/10/22 Last unknown) Updated by: Rabia Gooden MD (unknown) (no (unknown) (unknown) Visit Date: (units (un known) date) 03/16/22 Last unknown) Updated by: Rabia Gooden MD (unknown) (no (unknown) (unknown) Visit Date: (units (un known) date) 04/15/22 Last unknown) Updated by: Rabia Gooden MD (unknown) (no (unknown) (unknown) Visit Date: (units (un known) date) 05/13/22 Last unknown) Updated by: Rabia Gooden MD (unknown) (no (unknown) (unknown) Visit Date: (units (un known) date) 06/17/22 Last unknown) Updated by: Rabia Gooden MD (unknown) (no (unknown) (unknown) Visit Date: (units (un known) date) 07/01/22 Last unknown) Updated by: Rabia Gooden MD (unknown) (no (unknown) (unknown) Visit Date: (units (un known) date) 07/15/22 Last unknown) Updated by: Rabia Gooden MD (unknown) (no (unknown) (unknown) Visit Date: (units (un known) date) 07/29/22 Last unknown) Updated by: Rabia Gooden MD (unknown) (no (unknown) (unknown) Visit Reasons: (units (unknown) date) post C section unknown) f/u (unknown) (no (unknown) (unknown) Vitals (units (unkno wn) date) unknown) (unknown) (no (unknown) (unknown) Vitamin (units (unkno wn) date) K-: Yes unknown) (unknown) (no (unknown) (unknown) Vitamins and (units (u nknown) date) iron, Diet and unknown) weight gain, Fish and mercury intake, Caffeine use, (unknown) (no (unknown) (unknown) WG (units (unkno wn) date) unknown) (unknown) (no (unknown) (unknown) Weight 186 lb (units ( unknown) date) unknown) (unknown) (no (unknown) (unknown) 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 works at (unknown) (no (unknown) (unknown) Yes no 130 27 (units ( unknown) date) absent glucola unknown) ordered 2 (unknown) (no (unknown) (unknown) Yes no 132 28 (units ( unknown) date) absent 2wks unknown) (unknown) (no (unknown) (unknown) Yes no 134 31 (units ( unknown) date) absent 2wks unknown) (unknown) (no (unknown) (unknown) Yes no 140 30 (units ( unknown) date) absent 2wks unknown) (unknown) (no (unknown) (unknown) Yes no 144 21 (units ( unknown) date) abse unknown) (unknown) (no (unknown) (unknown) Yes yes 140 (units (un known) date) absent unknown) (unknown) (no (unknown) (unknown) Zika virus (units (unk nown) date) exposure: No unknown) (unknown) (no (unknown) (unknown) [Rx Confirmed (units ( unknown) date) 09/02/22] unknown) (unknown) (no (unknown) (unknown) alcohol intake: (units (unknown) date) former unknown) (unknown) (no (unknown) (unknown) amoxicillin (units (un known) date) Allergy (Mild, unknown) Verified 09/02/22 15:44) (unknown) (no (unknown) (unknown) anyone in either (units (unknown) date) family with: unknown) (unknown) (no (unknown) (unknown) 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 (units (unk nown) date) unknown) (unknown) (no (unknown) (unknown) azithromycin (units (u nknown) date) Allergy (Mild, unknown) Verified 09/02/22 15:44) (unknown) (no (unknown) (unknown) baby's father (units ( unknown) date) had a child with unknown) defects not listed above and Denies Other (unknown) (no (unknown) (unknown) caffeine: Yes (units ( unknown) date) unknown) (unknown) (no (unknown) (unknown) carbon monox (units (u nknown) date) detector in home: unknown) Yes (unknown) (no (unknown) (unknown) changes. Mild (units ( unknown) date) headaches - unknown) usually relieved quickly, stressed at work. No RUQ (unknown) (no (unknown) (unknown) changes. Mother (units (unknown) date) with unknown) due to severe pre-eclampsia at 23wks. (unknown) (no (unknown) (unknown) chlorhexidine (units ( unknown) date) Adverse Reaction unknown) (Intermediate, Verified 09/02/22 15:44) (unknown) (no (unknown) (unknown) clobetasol 0.05 (units (unknown) date) % topical unknown) ointment 1 applic topical BID #45 grams 07/01/22 [Rx (unknown) (no (unknown) (unknown) consistent with (units (unknown) date) PUPPS, but bile unknown) acids ordered to ensure no cholestasis as well. (unknown) (no (unknown) (unknown) current (units (unkno wn) date) occupational unknown) exposures/hazards : No (unknown) (no (unknown) (unknown) daily servings (units (unknown) date) fruits/ve-1 unknown) (unknown) (no (unknown) (unknown) described, visit (units (unknown) date) schedule unknown) reviewed, ultrasounds policy reviewed, coverage 24 (unknown) (no (unknown) (unknown) discussed, (units (unk nown) date) tuberculosis unknown) exposure discussed, CMV discussed, Toxoplasmosis (unknown) (no (unknown) (unknown) disorders, (units (unk nown) date) Denies Cystic unknown) Fibrosis, Denies Mental Retardation/Autis m, Denies (unknown) (no (unknown) (unknown) do you feel safe (units (unknown) date) at home: Yes unknown) (unknown) (no (unknown) (unknown) during the past (units (unknown) date) year weight has: unknown) remained stable (unknown) (no (unknown) (unknown) eclampsia - (units (un known) date) diagnosed 08/04 unknown) at 33w6d. Started Nifedipine 30mg XR. Plan on (unknown) (no (unknown) (unknown) education level: (units (unknown) date) other unknown) (unknown) (no (unknown) (unknown) exposure, (units (unkn own) date) Medication use, unknown) Sauna/hot tub use, Dental care, Travel and Influenza (unknown) (no (unknown) (unknown) feet/calves. (units (u nknown) date) Discussed unknown) elevation, water, decreased salt intake. (unknown) (no (unknown) (unknown) fire (units (unkno wn) date) extinguisher in unknown) home: Yes (unknown) (no (unknown) (unknown) firearms in (units (un known) date) home: No unknown) (unknown) (no (unknown) (unknown) have occurred. (units (unknown) date) If there are any unknown) questions, please contact the Medical Records (unknown) (no (unknown) (unknown) hours a day and (units (unknown) date) participation of unknown) father in care and office visits (unknown) (no (unknown) (unknown) household (units (unkn own) date) members: unknown) significant other and children (unknown) (no (unknown) (unknown) housing: (units (unkno wn) date) apartment unknown) (unknown) (no (unknown) (unknown) hyperemesis 1st (units (unknown) date) trimester unknown) (unknown) (no (unknown) (unknown) irritability, (units ( unknown) date) bloating and unknown) other (unknown) (no (unknown) (unknown) labetalol 100 mg (units (unknown) date) tablet 400 mg PO unknown) BID #360 tabs 08/04/22 [Rx Confirmed 09/02/22] (unknown) (no (unknown) (unknown) labs today (units (unk nown) date) unknown) (unknown) (no (unknown) (unknown) latex Adverse (units ( unknown) date) Reaction (Mild, unknown) Verified 09/02/22 15:44) (unknown) (no (unknown) (unknown) lives (units (unkno wn) date) independently: unknown) Yes (unknown) (no (unknown) (unknown) marital status: (units (unknown) date) unmarried,living unknown) together (unknown) (no (unknown) (unknown) may occur. (units (unk nown) date) Occasional unknown) wrong-word or 'sound-alike' substitutions may have (unknown) (no (unknown) (unknown) medication (units (unk nown) date) 110/90 was the unknown) highest, usually diastolic in the 80s. No vision (unknown) (no (unknown) (unknown) mester if well (units (unknown) date) controlled (2nd unknown) trimester normal). Started baby aspirin at 12 (unknown) (no (unknown) (unknown) nifedipine 30 mg (units (unknown) date) tablet,extended unknown) release 24 hr 30 mg PO DAILY #30 tabs 08/04/22 (unknown) (no (unknown) (unknown) nt (units (unkno wn) date) unknown) (unknown) (no (unknown) (unknown) number of (units (unkn own) date) children: 2 unknown) (unknown) (no (unknown) (unknown) occupational (units (u nknown) date) status: employed unknown) (unknown) (no (unknown) (unknown) occurred due to (units (unknown) date) the inherent unknown) limitations of voice recognition software. Please (unknown) (no (unknown) (unknown) other Camron (units (un known) date) unknown) (unknown) (no (unknown) (unknown) other Jeaneth (units (un known) date) unknown) (unknown) (no (unknown) (unknown) pain. Pt will (units ( unknown) date) complete 24hr unknown) protein this week. (unknown) (no (unknown) (unknown) pets and (units (unkno wn) date) animals: Yes (1 unknown) cat (pt is not managing litter box)) (unknown) (no (unknown) (unknown) precautions, (units (u nknown) date) Listeriosis unknown) prevention and Rubella Immunization (unknown) (no (unknown) (unknown) prenat.vits,miguel, (units (unknown) date) [id number] 1 unknown) tab PO DAILY 01/27/22 [History Confirmed (unknown) (no (unknown) (unknown) pt check her BPs (units (unknown) date) at home daily and unknown) bring log to next appt. (unknown) (no (unknown) (unknown) read the note (units ( unknown) date) carefully and unknown) recognize, using context, where these substitutions (unknown) (no (unknown) (unknown) seatbelt use: (units ( unknown) date) always unknown) (unknown) (no (unknown) (unknown) second hand (units (un known) date) exposure: No unknown) (unknown) (no (unknown) (unknown) seeing spots (units (u nknown) date) primarily later unknown) in the day. Increase Labetalol to 300mg BID. (unknown) (no (unknown) (unknown) software. (units (unkn own) date) Although every unknown) effort is made to edit content, white sidewall tire buffer errors (unknown) (no (unknown) (unknown) soon. (units (unkno wn) date) unknown) (unknown) (no (unknown) (unknown) special fly (units ( unknown) date) needs: No unknown) (unknown) (no (unknown) (unknown) substance use (units ( unknown) date) type: marijuana unknown) (unknown) (no (unknown) (unknown) to Labetalol (units (u nknown) date) with . unknown) BP quite elevated today. Increase to 200mg daily (unknown) (no (unknown) (unknown) today. Acutely (units (unknown) date) worse today. BPs unknown) at home have been 120/70-80s. - Will obtain (unknown) (no (unknown) (unknown) today. Baseline (units (unknown) date) pre-eclampsia unknown) labs ordered. (unknown) (no (unknown) (unknown) vaccine (units (unkno wn) date) unknown) (unknown) (no (unknown) (unknown) water heater (units (u nknown) date) temp set < 120 unknown) deg: Yes (Will check and adjust if needed) (unknown) (no (unknown) (unknown) weekly labs. (units (u nknown) date) testing unknown) still. Delivery at 37wks (requested 08/26/22) (unknown) (no (unknown) (unknown) weeks. NSTs (units (un known) date) starting at unknown) 32wks. Serial growth ultrasounds (last 08/04). Pre (unknown) (no (unknown) (unknown) well-balanced (units ( unknown) date) diet: about half unknown) the time (unknown) (no (unknown) (unknown) wks (units (unkno wn) date) unknown) (unknown) (no (unknown) (unknown) working on (units (unk nown) date) cutting down salt unknown) intake. (unknown) (no (unknown) (unknown) working smoke (units ( unknown) date) detector in home: unknown) Yes Result panel 24 (unknown) (no (unknown) (unknown) (no value) (units (unk nown) date) unknown) (unknown) (no (unknown) (unknown) (+0 oz) 146/80 (units (unknown) date) unknown) (unknown) (no (unknown) (unknown) (+10 lb) 120/82 (units (unknown) date) unknown) (unknown) (no (unknown) (unknown) (+10 lb) 140/86 (units (unknown) date) unknown) (unknown) (no (unknown) (unknown) (+10 lb) 140/90 (units (unknown) date) unknown) (unknown) (no (unknown) (unknown) (+3 lb) 160/116 (units (unknown) date) unknown) (unknown) (no (unknown) (unknown) (+4 oz) 126/70 (units (unknown) date) unknown) (unknown) (no (unknown) (unknown) (+6 lb) 134/84 (units (unknown) date) unknown) (unknown) (no (unknown) (unknown) (+9 lb) 136/90 (units (unknown) date) unknown) (unknown) (no (unknown) (unknown) (-12 lb) 140/84 (units (unknown) date) unknown) (unknown) (no (unknown) (unknown) Genetic (units (unkn own) date) Screening/Teratol unknown) ogy Counseling - Includes patient, baby's father, or (unknown) (no (unknown) (unknown) -?-?-?-?-?-?-?-? (units (unknown) date) -?-?-?-? unknown) (unknown) (no (unknown) (unknown) [id number] (units (unkno wn) date) unknown) (unknown) (no (unknown) (unknown) 09/02/22 (units (unkno wn) date) unknown) (unknown) (no (unknown) (unknown) 09/02/22] (units (unkn own) date) unknown) (unknown) (no (unknown) (unknown) 12/10/14 39 8 lb (units (unknown) date) 3 oz Female unknown) live - full term (unknown) (no (unknown) (unknown) 01/06/11 41 1 9 (units (unknown) date) lb 1 oz Male unknown) live - full term (unknown) (no (unknown) (unknown) 02/10/22 (units (unkno wn) date) unknown) (unknown) (no (unknown) (unknown) 03/16/22 (units (unkno wn) date) unknown) (unknown) (no (unknown) (unknown) 04/15/22 (units (unkno wn) date) unknown) (unknown) (no (unknown) (unknown) 05/13/22 (units (unkno wn) date) unknown) (unknown) (no (unknown) (unknown) 06/17/22 (units (unkno wn) date) unknown) (unknown) (no (unknown) (unknown) 07/01/22 (units (unkno wn) date) unknown) (unknown) (no (unknown) (unknown) 07/15/22 (units (unkno wn) date) unknown) (unknown) (no (unknown) (unknown) 07/29/22 (units (unkno wn) date) unknown) (unknown) (no (unknown) (unknown) 13w 5d 198 lb 4 (units (unknown) date) oz unknown) (unknown) (no (unknown) (unknown) 152/116 (units (unkno wn) date) unknown) (unknown) (no (unknown) (unknown) 15:44 (units (unkno wn) date) unknown) (unknown) (no (unknown) (unknown) 18w 0d 198 lb (units ( unknown) date) unknown) (unknown) (no (unknown) (unknown) 2+ 4wks (units (unkno wn) date) unknown) (unknown) (no (unknown) (unknown) 22w 0d 204 lb (units ( unknown) date) unknown) (unknown) (no (unknown) (unknown) 27w 0d 207 lb (units ( unknown) date) unknown) (unknown) (no (unknown) (unknown) 29w 0d 208 lb (units ( unknown) date) unknown) (unknown) (no (unknown) (unknown) 31w 0d 208 lb (units ( unknown) date) unknown) (unknown) (no (unknown) (unknown) 33w 0d 208 lb (units ( unknown) date) unknown) (unknown) (no (unknown) (unknown) 38w 0d 186 lb (units ( unknown) date) unknown) (unknown) (no (unknown) (unknown) 4wks (units (unkno wn) date) unknown) (unknown) (no (unknown) (unknown) 02/10, 300mg BID (units (unknown) date) 06/17. Baseline unknown) pre-eclampsia labs ordered. Will need qtri (unknown) (no (unknown) (unknown) 8w 6d 201 lb (units (u nknown) date) unknown) (unknown) (no (unknown) (unknown) Abdomen with a (units (unknown) date) very itchy rash. unknown) Nothing on her hands and feet. Most (unknown) (no (unknown) (unknown) Abnormal lab (units (u nknown) date) values 1st unknown) trimester: discussed (unknown) (no (unknown) (unknown) Abnormal lab (units (u nknown) date) values 3rd unknown) trimester: discussed (unknown) (no (unknown) (unknown) Accompanied by: (units (unknown) date) Self / Same As unknown) Patient (unknown) (no (unknown) (unknown) Add'l Plan (units (unk nown) date) Details unknown) (unknown) (no (unknown) (unknown) Age/Sex: 32 / F (units (unknown) date) Date of Service: unknown) (unknown) (no (unknown) (unknown) Allergies (units (unkn own) date) unknown) (unknown) (no (unknown) (unknown) [facility] (units (unknown) date) Medicine unknown) (unknown) (no (unknown) (unknown) [place] (units ( unknown) date) [id number] unknown) (unknown) (no (unknown) (unknown) Anatomy scan (units (u nknown) date) normal, 88th unknown) percentile (unknown) (no (unknown) (unknown) Anatomy u/s (units (un known) date) ordered unknown) (unknown) (no (unknown) (unknown) Anesthesia (units (unk nown) date) preference: Other unknown) (spinal for c/s) (unknown) (no (unknown) (unknown) Anesthesia/Analg (units (unknown) date) esia plans: unknown) discussed (unknown) (no (unknown) (unknown) Aneuploidy (units (unk nown) date) Screening unknown) Offered: Accepted (unknown) (no (unknown) (unknown) Antibiotic Eye (units (unknown) date) Drops-Infant: Yes unknown) (unknown) (no (unknown) (unknown) Anticipated (units (un known) date) course of unknown) care: discussed (unknown) (no (unknown) (unknown) Assessment and (units (unknown) date) Plan unknown) (unknown) (no (unknown) (unknown) Asymptomatic. (units ( unknown) date) Vision changes unknown) improved with iron supplement. (unknown) (no (unknown) (unknown) Attending Dr: (units ( unknown) date) Rabia Gooden MD unknown) (unknown) (no (unknown) (unknown) BP 140/84 (units (unkn own) date) unknown) (unknown) (no (unknown) (unknown) BPs at home (units (un known) date) diastolic 90-93, unknown) systolic in 130s. No headaches. Pt is (unknown) (no (unknown) (unknown) BPs at home have (units (unknown) date) been 130/80-90s. unknown) Increase Labetalol to 400mg BID. (unknown) (no (unknown) (unknown) BPs at home have (units (unknown) date) been in normal unknown) range. (unknown) (no (unknown) (unknown) BPs have been (units ( unknown) date) consistently in unknown) good range, 110s/60s in general. (unknown) (no (unknown) (unknown) Baby came home (units (unknown) date) 08/28/22. unknown) (unknown) (no (unknown) (unknown) (units (unkno wn) date) Plan/Preferences unknown) (unknown) (no (unknown) (unknown) Planning (units (unknown) date) unknown) (unknown) (no (unknown) (unknown) Blister (units (unkno wn) date) unknown) (unknown) (no (unknown) (unknown) Blood Pressure (units (unknown) date) Location Lt unknown) brachial (unknown) (no (unknown) (unknown) Blood (units (unkno wn) date) transfusions?: unknown) yes (unknown) (no (unknown) (unknown) Breastfeed Preg (units (unknown) date) Comp Name unknown) (unknown) (no (unknown) (unknown) Checking BPs at (units (unknown) date) home - before unknown) medication BPs usually 140s/80s. After (unknown) (no (unknown) (unknown) Chronic HTN - (units ( unknown) date) Switched to unknown) Labetalol with . Increased to 200mg BID (unknown) (no (unknown) (unknown) Chronic HTN (units (un known) date) started January unknown) 2020, on Lisinopril. Added Carvedilol. Switched (unknown) (no (unknown) (unknown) Chronic cough (units ( unknown) date) (-2000) unknown) (unknown) (no (unknown) (unknown) Confirmed (units (unkn own) date) 09/02/22] unknown) (unknown) (no (unknown) (unknown) Current Estimate (units (unknown) date) 09/16/22 LMP unknown) (Certain) 38w 0d (unknown) (no (unknown) (unknown) Current (units (unkno wn) date) History unknown) (unknown) (no (unknown) (unknown) : 1990 (units (unknown) date) Acct:[id number] unknown) (unknown) (no (unknown) (unknown) Date of positive (units (unknown) date) home unknown) test: 12/30/21 (unknown) (no (unknown) (unknown) Date (units (unkno wn) date) unknown) (unknown) (no (unknown) (unknown) Dating u/s (units (unk nown) date) concordant with unknown) LMP, keep CLAU 09/16/22. (unknown) (no (unknown) (unknown) Del. Date (units (unkn own) date) GA/Weeks Labor unknown) Lgth Wt Sex Route Outcome Anesthesia Place (unknown) (no (unknown) (unknown) Delayed cord (units (u nknown) date) clamping: Yes unknown) (unknown) (no (unknown) (unknown) Delivery Date: (units (unknown) date) 12/10/14 Last unknown) Updated by: Bianca Arenas R.N. (unknown) (no (unknown) (unknown) Delivery Date: (units (unknown) date) 01/06/11 Last unknown) Updated by: Bianca Arenas R.N. (unknown) (no (unknown) (unknown) Delivery Date: (units (unknown) date) 08/04/22 unknown) (unknown) (no (unknown) (unknown) Delv (units (unkno wn) date) unknown) (unknown) (no (unknown) (unknown) Denies Congenital (units (unknown) date) Heart Defect, unknown) Denies Down Syndrome, Denies Muscular Dystrophy, (unknown) (no (unknown) (unknown) Denies Maternal (units (unknown) date) Metabolic unknown) Disorder (EG,TYPE 1 Diabetes, PKU), Denies Patient or (unknown) (no (unknown) (unknown) Denies Neural (units ( unknown) date) Tube Defect unknown) (Meningomyelocele , Spina Bifida, or Anencephaly), (unknown) (no (unknown) (unknown) Denies Sickle (units ( unknown) date) Cell Disease or unknown) Trait (), Denies Hemophilia or other blood (unknown) (no (unknown) (unknown) Denies Willie-Sachs (units (unknown) date) (Ashkenazi unknown) Yarsani, Cajun, [place] Romanian), Denies Fred (unknown) (no (unknown) (unknown) Denies other (units (u nknown) date) unknown) (unknown) (no (unknown) (unknown) Denies over the (units (unknown) date) counter unknown) medications, Denies alcohol, Denies illicit drugs and (unknown) (no (unknown) (unknown) Depression (units (unk nown) date) unknown) (unknown) (no (unknown) (unknown) Depression: (units (un known) date) discussed unknown) (unknown) (no (unknown) (unknown) Dept at (units (unkno wn) date) . unknown) (unknown) (no (unknown) (unknown) Desires quad (units (u nknown) date) screen for unknown) genetic testing. (unknown) (no (unknown) (unknown) Diet and (units (unkno wn) date) Exercise unknown) (unknown) (no (unknown) (unknown) Disease (units (unkno wn) date) (Ashkenazi unknown) Yarsani), Denies Familial Dysautonomia (Ashkenazi Yarsani), (unknown) (no (unknown) (unknown) Documented By: (units (unknown) date) Rabia Gooden MD unknown) 09/02/22 1301 (unknown) (no (unknown) (unknown) Draft (units (unkno wn) date) unknown) (unknown) (no (unknown) (unknown) CLAU Calculator (units (unknown) date) unknown) (unknown) (no (unknown) (unknown) EGA Weight BP (units ( unknown) date) UGlucose unknown) (unknown) (no (unknown) (unknown) Estimated (units (unkn own) date) Delivery Date unknown) Method Current (unknown) (no (unknown) (unknown) Exercise and (units (u nknown) date) activity, unknown) work/environmenta l/hazards, Sexual activity, X-ray (unknown) (no (unknown) (unknown) FHT 167. Normal (units (unknown) date) adnexa and unknown) ovaries. (unknown) (no (unknown) (unknown) Failed glucola, (units (unknown) date) 3hr GTT needs to unknown) be scheduled, will schedule today. (unknown) (no (unknown) (unknown) Family History (units (unknown) date) (Reviewed unknown) 07/30/22 @ 11:31 by Karina Gaytan DO) (unknown) (no (unknown) (unknown) Father of Baby: (units (unknown) date) same unknown) (unknown) (no (unknown) (unknown) Feeding: breast (units (unknown) date) unknown) (unknown) (no (unknown) (unknown) movement (units (unknown) date) monitoring: unknown) discussed (unknown) (no (unknown) (unknown) First Trimester (units (unknown) date) Education unknown) Checklist (unknown) (no (unknown) (unknown) GERD getting (units (u nknown) date) worse. Tums unknown) doesn't help. - Discussed Pepcid (unknown) (no (unknown) (unknown) Genetic (units (unkno wn) date) Screening + unknown) Counseling (unknown) (no (unknown) (unknown) Genetic (units (unkno wn) date) Screening unknown) (unknown) (no (unknown) (unknown) [facility] requested (unknown) (no (unknown) (unknown) Glucola ordered (units (unknown) date) unknown) (unknown) (no (unknown) (unknown) Grandfather (units (un known) date) Hypertension unknown) (unknown) (no (unknown) (unknown) Grandmother Type (units (unknown) date) 2 diabetes unknown) mellitus (unknown) (no (unknown) (unknown) 3 (units (unkn own) date) Multiple births unknown) (unknown) (no (unknown) (unknown) : 3 (units (unk nown) date) unknown) (unknown) (no (unknown) (unknown) Growth u/s (units (unk nown) date) scheduled 08/10. unknown) (unknown) (no (unknown) (unknown) Growth (units (unkno wn) date) ultrasound unknown) ordered today (unknown) (no (unknown) (unknown) HIV risk (units (unkno wn) date) evaluation: low unknown) risk (unknown) (no (unknown) (unknown) Health Center (units ( unknown) date) Education unknown) (unknown) (no (unknown) (unknown) Health center (units ( unknown) date) information: unknown) nature of practice discussed, personnel (unknown) (no (unknown) (unknown) Hep B-: (units ( unknown) date) Yes unknown) (unknown) (no (unknown) (unknown) Hepatitis C risk (units (unknown) date) evaluation: low unknown) risk (unknown) (no (unknown) (unknown) High risk (units (unkn own) date) type/reason(s): unknown) chronic HTN (unknown) (no (unknown) (unknown) History of (units (unk nown) date) Hepatitis B: No unknown) (unknown) (no (unknown) (unknown) History of (units (unk nown) date) Hepatitis C: No unknown) (unknown) (no (unknown) (unknown) History/Interim (units (unknown) date) Details unknown) (unknown) (no (unknown) (unknown) [facility] (units (u [facility]known) [facility]) unknown) (unknown) (no (unknown) (unknown) [facility] (units (u nknown) date) Chorea, Denies unknown) Other inherited genetic or chromosomal disorder, (unknown) (no (unknown) (unknown) Hx # (units (u nknown) date) Pregnancies unknown) Elective abortions (unknown) (no (unknown) (unknown) Hx # Term (units (unkn own) date) Pregnancies 2 unknown) Ectopic pregnancies (unknown) (no (unknown) (unknown) Hx of prior (units (un known) date) unknown) (unknown) (no (unknown) (unknown) Hypertension (units (u nknown) date) unknown) (unknown) (no (unknown) (unknown) IH 3 months ot (units (unknown) date) unknown) (unknown) (no (unknown) (unknown) IH attempted (units (u nknown) date) unknown) (unknown) (no (unknown) (unknown) ITCHING (units (unkno wn) date) unknown) (unknown) (no (unknown) (unknown) Increased foot (units (unknown) date) swelling. No unknown) headaches, vision changes, RUQ pain. (unknown) (no (unknown) (unknown) Infant (units (u nknown) date) Weight: 5 lbs unknown) 7.6oz (unknown) (no (unknown) (unknown) Infant Longest (units (unknown) date) Sleep: 4 unknown) (unknown) (no (unknown) (unknown) Infant will be (units (unknown) date) adopted?: no unknown) (unknown) (no (unknown) (unknown) Infant's Sex: (units ( unknown) date) Male unknown) (unknown) (no (unknown) (unknown) Infection (units (unkn own) date) History unknown) (unknown) (no (unknown) (unknown) Infectious (units (unk nown) date) Disease Education unknown) (unknown) (no (unknown) (unknown) Infectious (units (unk nown) date) disease exposure: unknown) chicken pox immunity discussed, hepatitis risk (unknown) (no (unknown) (unknown) Initial Weight: (units (unknown) date) 198 lb unknown) (unknown) (no (unknown) (unknown) Initials (units (unkno wn) date) unknown) (unknown) (no (unknown) (unknown) Intake Note: (units (u nknown) date) unknown) (unknown) (no (unknown) (unknown) Intake (units (unkno wn) date) unknown) (unknown) (no (unknown) (unknown) FELICITY (units (unkno wn) date) unknown) (unknown) (no (unknown) (unknown) Legs have been (units (unknown) date) swelling unknown) slightly. She is wearing compression socks, (unknown) (no (unknown) (unknown) Live with (units (unkn own) date) someone with TB unknown) or exposed to TB: No (unknown) (no (unknown) (unknown) Loc: [facility] (units (unkno wn) date) unknown) (unknown) (no (unknown) (unknown) Marital status: (units (unknown) date) unmarried,living unknown) together (unknown) (no (unknown) (unknown) Medical History (units (unknown) date) (Reviewed unknown) 07/30/22 @ 11:31 by Karina Gaytan DO) (unknown) (no (unknown) (unknown) Medications (units (un known) date) unknown) (unknown) (no (unknown) (unknown) Mild (units (unkno wn) date) intermittent unknown) headaches. Can tell when BP is higher due to vision (unknown) (no (unknown) (unknown) Mother Age: 51 (units (unknown) date) Stroke unknown) (unknown) (no (unknown) (unknown) NSTs have (units (unkn own) date) started, unknown) reassuring thus far. (unknown) (no (unknown) (unknown) NSTs to start (units ( unknown) date) next week. Growth unknown) scan ordered. (unknown) (no (unknown) (unknown) Nausea is (units (unkn own) date) improved, unknown) tolerable now. (unknown) (no (unknown) (unknown) No no 150 absent (units (unknown) date) anatomy ordered unknown) 4wks (unknown) (no (unknown) (unknown) No no 167 absent (units (unknown) date) dating u/s 4wks unknown) (unknown) (no (unknown) (unknown) Notes (units (unkno wn) date) unknown) (unknown) (no (unknown) (unknown) Number of Living (units (unknown) date) Children 2 unknown) (unknown) (no (unknown) (unknown) Number of Weeks (units (unknown) date) Post : 4 unknown) (unknown) (no (unknown) (unknown) Number of (units (unkn own) date) fetuses:: Single unknown) (unknown) (no (unknown) (unknown) Nutrition and (units ( unknown) date) weight gain unknown) counseling: special diet: discussed (unknown) (no (unknown) (unknown) OB Office Visit (units (unknown) date) unknown) (unknown) (no (unknown) (unknown) OB Visit Log (units (u nknown) date) unknown) (unknown) (no (unknown) (unknown) On control (units (unknown) date) at conception?: unknown) Yes (OCP, stopped on learning of ) (unknown) (no (unknown) (unknown) Oxygen Delivery (units (unknown) date) Method room air unknown) (unknown) (no (unknown) (unknown) PFSH (units (unkno wn) date) unknown) (unknown) (no (unknown) (unknown) 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 (unknown) (no (unknown) (unknown) PUPP (pruritic (units (unknown) date) urticarial unknown) papules and plaques of ) (unknown) (no (unknown) (unknown) PUPPPS rash (units (un known) date) unknown) (unknown) (no (unknown) (unknown) Para 3 (units (unkno wn) date) Spontaneous unknown) abortions (unknown) (no (unknown) (unknown) Para: 3 (units (unkno wn) date) unknown) (unknown) (no (unknown) (unknown) Partner history (units (unknown) date) of STD: denies hx unknown) (unknown) (no (unknown) (unknown) Partner history (units (unknown) date) of genital unknown) herpes: No (unknown) (no (unknown) (unknown) Partner: Lloyd (units (unknown) date) [place] unknown) (unknown) (no (unknown) (unknown) Past Pregnancies (units (unknown) date) unknown) (unknown) (no (unknown) (unknown) Patient's age 35 (units (unknown) date) years or older as unknown) of estimated date of delivery: No (unknown) (no (unknown) (unknown) Patient: (units (unkno wn) date) [place] unknown) MR#: [id number] (unknown) (no (unknown) (unknown) 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 Will be unknown) starting job at [employer] (unknown) (no (unknown) (unknown) Plan to obtain (units (unknown) date) baseline labs at unknown) next appt. Pt with increasing swelling (unknown) (no (unknown) (unknown) Plantar (units (unkno wn) date) fasciitis (-2016) unknown) (unknown) (no (unknown) (unknown) Position Sitting (units (unknown) date) unknown) (unknown) (no (unknown) (unknown) Post (units (un known) date) unknown) (unknown) (no (unknown) (unknown) (units (unkn own) date) Complications: unknown) hypertension (unknown) (no (unknown) (unknown) (units (unkn own) date) History unknown) (unknown) (no (unknown) (unknown) type:: (units (unknown) date) High Risk Other unknown) (unknown) (no (unknown) (unknown) (units (unkno wn) date) Education unknown) (unknown) (no (unknown) (unknown) Initial (units (unknown) date) Assessment unknown) (unknown) (no (unknown) (unknown) (units (unkno wn) date) Specific unknown) Issues/Plans (unknown) (no (unknown) (unknown) (units (unkno wn) date) Testing: unknown) discussed (unknown) (no (unknown) (unknown) Visit (units (unknown) date) unknown) (unknown) (no (unknown) (unknown) (units (unkno wn) date) education packet: unknown) Child education/plan, symptoms, (unknown) (no (unknown) (unknown) Prilosec. (units (unkn own) date) unknown) (unknown) (no (unknown) (unknown) Primary Care (units (u nknown) date) Provider: unknown) Sadie (unknown) (no (unknown) (unknown) Primary Ob (units (unk nown) date) Provider: unknown) Rabia Gooden (unknown) (no (unknown) (unknown) Prior (units (unkno wn) date) GBS-Infected unknown) child: No (unknown) (no (unknown) (unknown) Providers (units (unkn own) date) unknown) (unknown) (no (unknown) (unknown) Psoriasis (units (unkn own) date) unknown) (unknown) (no (unknown) (unknown) Pt arrives for a (units (unknown) date) post unknown) appointment. Delivered at 33 wks and 6 days. (unknown) (no (unknown) (unknown) Pt did not (units (unk nown) date) complete quad unknown) screen (unknown) (no (unknown) (unknown) Pt has been (units (un known) date) feeling somewhat unknown) winded. No swelling. (unknown) (no (unknown) (unknown) Pt hasn't been (units (unknown) date) checking BP at unknown) home, but when she did check was 130/80. (unknown) (no (unknown) (unknown) Pt is on 400mg (units (unknown) date) TID currently, unknown) Nifedipine 30mg XR. BPs have been 120-140/70-80s. (unknown) (no (unknown) (unknown) Pt is taking (units (u nknown) date) Tums and unknown) Prilosec, GERD still severe. Discussed BID dosing (unknown) (no (unknown) (unknown) Pt was transfused (units (unknown) date) 9 units of PRBCs, unknown) plasma, and FFP while in the hospital due to (unknown) (no (unknown) (unknown) Pt with ongoing (units (unknown) date) LE swelling. unknown) Primarily left foot. No pain in (unknown) (no (unknown) (unknown) Pt with (units (unkno wn) date) significant unknown) nausea. Manageable thus far. Declines need for (unknown) (no (unknown) (unknown) Pulse 90 (units (unkno wn) date) unknown) (unknown) (no (unknown) (unknown) Pulse Oximetry (units (unknown) date) (%) 99 unknown) (unknown) (no (unknown) (unknown) Pulse Source (units (u nknown) date) Monitor unknown) (unknown) (no (unknown) (unknown) Quad screen (units (un known) date) ordered today. unknown) Anatomy scheduled. (unknown) (no (unknown) (unknown) RASH AND ITCHING (units (unknown) date) unknown) (unknown) (no (unknown) (unknown) RASH (units (unkno wn) date) unknown) (unknown) (no (unknown) (unknown) ROS (units (unkno wn) date) unknown) (unknown) (no (unknown) (unknown) Rash or viral (units ( unknown) date) illness since unknown) last menstrual period: No (unknown) (no (unknown) (unknown) Rash (units (unkno wn) date) unknown) (unknown) (no (unknown) (unknown) Reason For Visit (units (unknown) date) unknown) (unknown) (no (unknown) (unknown) Recent travel (units ( unknown) date) outside of unknown) country?: No (unknown) (no (unknown) (unknown) Recurrent (units (unkn own) date) loss or unknown) a stillbirth: No (unknown) (no (unknown) (unknown) Reminded to (units (un known) date) complete glucola. unknown) Growth u/s scheduled for later today. (unknown) (no (unknown) (unknown) Reminded to (units (un known) date) complete lab work unknown) (unknown) (no (unknown) (unknown) Repeat BP today (units (unknown) date) 132/86. No unknown) headaches, vision changes, RUQ pain, edema. Request (unknown) (no (unknown) (unknown) Rx Clobetasol to (units (unknown) date) help with unknown) itching. (unknown) (no (unknown) (unknown) Safety (units (unkno wn) date) unknown) (unknown) (no (unknown) (unknown) Signed By: (units (unk nown) date) unknown) (unknown) (no (unknown) (unknown) Smoking Status: (units (unknown) date) Never smoker unknown) (unknown) (no (unknown) (unknown) Social History (units (unknown) date) unknown) (unknown) (no (unknown) (unknown) Status post (units (un known) date) appendectomy unknown) () (unknown) (no (unknown) (unknown) Status post (units (un known) date) delivery unknown) (01/06/11) (unknown) (no (unknown) (unknown) Status post (units (un known) date) delivery unknown) (unknown) (no (unknown) (unknown) Sulfa (units (unkno wn) date) (Sulfonamide unknown) Antibiotics) Allergy (Mild, Verified 09/02/22 15:44) (unknown) (no (unknown) (unknown) Support (units (unkno wn) date) Person(s):: unknown) Lloyd (unknown) (no (unknown) (unknown) Surgery date to (units (unknown) date) be requested for unknown) 09/09/22. Packet sent to dental scheduler. (unknown) (no (unknown) (unknown) Surgical History (units (unknown) date) (Reviewed unknown) 07/30/22 @ 11:31 by Karina Gaytan DO) (unknown) (no (unknown) (unknown) Surrogate (units (unkn own) date) ?: no unknown) (unknown) (no (unknown) (unknown) Symptoms since (units (unknown) date) LMP: Reports unknown) nausea, breast tenderness, urinary frequency, (unknown) (no (unknown) (unknown) Teratogen (units (unkn own) date) Exposures since unknown) LMP/Conception: Denies prescription medications, (unknown) (no (unknown) (unknown) Testing (units (unkno wn) date) Education unknown) (unknown) (no (unknown) (unknown) Testing (units (unkno wn) date) education unknown) completed: Spina bifida testing and Cell Free DNA (unknown) (no (unknown) (unknown) Third Trimester (units (unknown) date) Education unknown) Checklist (unknown) (no (unknown) (unknown) This note may (units ( unknown) date) have been all or unknown) partially generated using voice recognition (unknown) (no (unknown) (unknown) Tobacco + (units (unkn own) date) Substance Use unknown) (unknown) (no (unknown) (unknown) Tobacco Status (units (unknown) date) unknown) (unknown) (no (unknown) (unknown) Type of (units (unkno wn) date) Delivery: repeat unknown) C/S (unknown) (no (unknown) (unknown) Type(s) of (units (unk nown) date) exercise: none unknown) (unknown) (no (unknown) (unknown) UProtein Movement (units (unknown) date) PreLabor FHR Fndl unknown) Ht Pres Edema Cerv Exam US/Comment Next Appt (unknown) (no (unknown) (unknown) Ultrasound (units (unk nown) date) Details:: Dating unknown) u/s 02/10/22 - Single IUP. CRL consistent with 8w1d. (unknown) (no (unknown) (unknown) Ultrasound (units (unk nown) date) unknown) (unknown) (no (unknown) (unknown) Varicella/chicke (units (unknown) date) n pox status: unknown) previous disease (unknown) (no (unknown) (unknown) Visit Date: (units (un known) date) 02/10/22 Last unknown) Updated by: Rabia Gooden MD (unknown) (no (unknown) (unknown) Visit Date: (units (un known) date) 03/16/22 Last unknown) Updated by: Rabia Gooden MD (unknown) (no (unknown) (unknown) Visit Date: (units (un known) date) 04/15/22 Last unknown) Updated by: Rabia Gooden MD (unknown) (no (unknown) (unknown) Visit Date: (units (un known) date) 05/13/22 Last unknown) Updated by: Rabia Gooden MD (unknown) (no (unknown) (unknown) Visit Date: (units (un known) date) 06/17/22 Last unknown) Updated by: Rabia Gooden MD (unknown) (no (unknown) (unknown) Visit Date: (units (un known) date) 07/01/22 Last unknown) Updated by: Rabia Gooden MD (unknown) (no (unknown) (unknown) Visit Date: (units (un known) date) 07/15/22 Last unknown) Updated by: Rabia Gooden MD (unknown) (no (unknown) (unknown) Visit Date: (units (un known) date) 07/29/22 Last unknown) Updated by: Rabia Gooden MD (unknown) (no (unknown) (unknown) Visit Reasons: (units (unknown) date) post C section unknown) f/u (unknown) (no (unknown) (unknown) Vitals (units (unkno wn) date) unknown) (unknown) (no (unknown) (unknown) Vitamin (units (unkno wn) date) K-: Yes unknown) (unknown) (no (unknown) (unknown) Vitamins and (units (u nknown) date) iron, Diet and unknown) weight gain, Fish and mercury intake, Caffeine use, (unknown) (no (unknown) (unknown) WG (units (unkno wn) date) unknown) (unknown) (no (unknown) (unknown) Weight 186 lb (units ( unknown) date) unknown) (unknown) (no (unknown) (unknown) 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 works at (unknown) (no (unknown) (unknown) Yes no 130 27 (units ( unknown) date) absent glucola unknown) ordered 2 (unknown) (no (unknown) (unknown) Yes no 132 28 (units ( unknown) date) absent 2wks unknown) (unknown) (no (unknown) (unknown) Yes no 134 31 (units ( unknown) date) absent 2wks unknown) (unknown) (no (unknown) (unknown) Yes no 140 30 (units ( unknown) date) absent 2wks unknown) (unknown) (no (unknown) (unknown) Yes no 144 21 (units ( unknown) date) abse unknown) (unknown) (no (unknown) (unknown) Yes yes 140 (units (un known) date) absent unknown) (unknown) (no (unknown) (unknown) Zika virus (units (unk nown) date) exposure: No unknown) (unknown) (no (unknown) (unknown) [Rx Confirmed (units ( unknown) date) 09/02/22] unknown) (unknown) (no (unknown) (unknown) alcohol intake: (units (unknown) date) former unknown) (unknown) (no (unknown) (unknown) amoxicillin (units (un known) date) Allergy (Mild, unknown) Verified 09/02/22 15:44) (unknown) (no (unknown) (unknown) anyone in either (units (unknown) date) family with: unknown) (unknown) (no (unknown) (unknown) 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 (units (unk nown) date) unknown) (unknown) (no (unknown) (unknown) azithromycin (units (u nknown) date) Allergy (Mild, unknown) Verified 09/02/22 15:44) (unknown) (no (unknown) (unknown) baby's father (units ( unknown) date) had a child with unknown) defects not listed above and Denies Other (unknown) (no (unknown) (unknown) caffeine: Yes (units ( unknown) date) unknown) (unknown) (no (unknown) (unknown) carbon monox (units (u nknown) date) detector in home: unknown) Yes (unknown) (no (unknown) (unknown) changes. Mild (units ( unknown) date) headaches - unknown) usually relieved quickly, stressed at work. No RUQ (unknown) (no (unknown) (unknown) changes. Mother (units (unknown) date) with unknown) due to severe pre-eclampsia at 23wks. (unknown) (no (unknown) (unknown) chlorhexidine (units ( unknown) date) Adverse Reaction unknown) (Intermediate, Verified 09/02/22 15:44) (unknown) (no (unknown) (unknown) clobetasol 0.05 (units (unknown) date) % topical unknown) ointment 1 applic topical BID #45 grams 07/01/22 [Rx (unknown) (no (unknown) (unknown) consistent with (units (unknown) date) PUPPS, but bile unknown) acids ordered to ensure no cholestasis as well. (unknown) (no (unknown) (unknown) current (units (unkno wn) date) occupational unknown) exposures/hazards : No (unknown) (no (unknown) (unknown) daily servings (units (unknown) date) fruits/ve-1 unknown) (unknown) (no (unknown) (unknown) described, visit (units (unknown) date) schedule unknown) reviewed, ultrasounds policy reviewed, coverage 24 (unknown) (no (unknown) (unknown) discussed, (units (unk nown) date) tuberculosis unknown) exposure discussed, CMV discussed, Toxoplasmosis (unknown) (no (unknown) (unknown) disorders, (units (unk nown) date) Denies Cystic unknown) Fibrosis, Denies Mental Retardation/Autis m, Denies (unknown) (no (unknown) (unknown) do you feel safe (units (unknown) date) at home: Yes unknown) (unknown) (no (unknown) (unknown) during the past (units (unknown) date) year weight has: unknown) remained stable (unknown) (no (unknown) (unknown) eclampsia - (units (un known) date) diagnosed 08/04 unknown) at 33w6d. Started Nifedipine 30mg XR. Plan on (unknown) (no (unknown) (unknown) education level: (units (unknown) date) other unknown) (unknown) (no (unknown) (unknown) exposure, (units (unkn own) date) Medication use, unknown) Sauna/hot tub use, Dental care, Travel and Influenza (unknown) (no (unknown) (unknown) feet/calves. (units (u nknown) date) Discussed unknown) elevation, water, decreased salt intake. (unknown) (no (unknown) (unknown) fire (units (unkno wn) date) extinguisher in unknown) home: Yes (unknown) (no (unknown) (unknown) firearms in (units (un known) date) home: No unknown) (unknown) (no (unknown) (unknown) have occurred. (units (unknown) date) If there are any unknown) questions, please contact the Medical Records (unknown) (no (unknown) (unknown) hemorrhage. (units (un known) date) unknown) (unknown) (no (unknown) (unknown) her Jeaneth (units (unkn own) date) unknown) (unknown) (no (unknown) (unknown) hours a day and (units (unknown) date) participation of unknown) father in care and office visits (unknown) (no (unknown) (unknown) household (units (unkn own) date) members: unknown) significant other and children (unknown) (no (unknown) (unknown) housing: (units (unkno wn) date) apartment unknown) (unknown) (no (unknown) (unknown) hyperemesis 1st (units (unknown) date) trimester unknown) (unknown) (no (unknown) (unknown) irritability, (units ( unknown) date) bloating and unknown) other (unknown) (no (unknown) (unknown) labetalol 100 mg (units (unknown) date) tablet 400 mg PO unknown) BID #360 tabs 08/04/22 [Rx Confirmed 09/02/22] (unknown) (no (unknown) (unknown) labs today (units (unk nown) date) unknown) (unknown) (no (unknown) (unknown) latex Adverse (units ( unknown) date) Reaction (Mild, unknown) Verified 09/02/22 15:44) (unknown) (no (unknown) (unknown) lives (units (unkno wn) date) independently: unknown) Yes (unknown) (no (unknown) (unknown) marital status: (units (unknown) date) unmarried,living unknown) together (unknown) (no (unknown) (unknown) may occur. (units (unk nown) date) Occasional unknown) wrong-word or 'sound-alike' substitutions may have (unknown) (no (unknown) (unknown) medication (units (unk nown) date) 110/90 was the unknown) highest, usually diastolic in the 80s. No vision (unknown) (no (unknown) (unknown) mester if well (units (unknown) date) controlled (2nd unknown) trimester normal). Started baby aspirin at 12 (unknown) (no (unknown) (unknown) nifedipine 30 mg (units (unknown) date) tablet,extended unknown) release 24 hr 30 mg PO DAILY #30 tabs 08/04/22 (unknown) (no (unknown) (unknown) nt (units (unkno wn) date) unknown) (unknown) (no (unknown) (unknown) number of (units (unkn own) date) children: 2 unknown) (unknown) (no (unknown) (unknown) occupational (units (u nknown) date) status: employed unknown) (unknown) (no (unknown) (unknown) occurred due to (units (unknown) date) the inherent unknown) limitations of voice recognition software. Please (unknown) (no (unknown) (unknown) other Camron (units (un known) date) unknown) (unknown) (no (unknown) (unknown) pain. Pt will (units ( unknown) date) complete 24hr unknown) protein this week. (unknown) (no (unknown) (unknown) pets and (units (unkno wn) date) animals: Yes (1 unknown) cat (pt is not managing litter box)) (unknown) (no (unknown) (unknown) precautions, (units (u nknown) date) Listeriosis unknown) prevention and Rubella Immunization (unknown) (no (unknown) (unknown) prenat.vits,miguel, (units (unknown) date) [id number] 1 unknown) tab PO DAILY 01/27/22 [History Confirmed (unknown) (no (unknown) (unknown) pt check her BPs (units (unknown) date) at home daily and unknown) bring log to next appt. (unknown) (no (unknown) (unknown) read the note (units ( unknown) date) carefully and unknown) recognize, using context, where these substitutions (unknown) (no (unknown) (unknown) seatbelt use: (units ( unknown) date) always unknown) (unknown) (no (unknown) (unknown) second hand (units (un known) date) exposure: No unknown) (unknown) (no (unknown) (unknown) seeing spots (units (u nknown) date) primarily later unknown) in the day. Increase Labetalol to 300mg BID. (unknown) (no (unknown) (unknown) software. (units (unkn own) date) Although every unknown) effort is made to edit content, white sidewall tire buffer errors (unknown) (no (unknown) (unknown) soon. (units (unkno wn) date) unknown) (unknown) (no (unknown) (unknown) special fly (units ( unknown) date) needs: No unknown) (unknown) (no (unknown) (unknown) substance use (units ( unknown) date) type: marijuana unknown) (unknown) (no (unknown) (unknown) to Labetalol (units (u nknown) date) with . unknown) BP quite elevated today. Increase to 200mg daily (unknown) (no (unknown) (unknown) today. Acutely (units (unknown) date) worse today. BPs unknown) at home have been 120/70-80s. - Will obtain (unknown) (no (unknown) (unknown) today. Baseline (units (unknown) date) pre-eclampsia unknown) labs ordered. (unknown) (no (unknown) (unknown) vaccine (units (unkno wn) date) unknown) (unknown) (no (unknown) (unknown) water heater (units (u nknown) date) temp set < 120 unknown) deg: Yes (Will check and adjust if needed) (unknown) (no (unknown) (unknown) weekly labs. (units (u nknown) date) testing unknown) still. Delivery at 37wks (requested 08/26/22) (unknown) (no (unknown) (unknown) weeks. NSTs (units (un known) date) starting at unknown) 32wks. Serial growth ultrasounds (last 08/04). Pre (unknown) (no (unknown) (unknown) well-balanced (units ( unknown) date) diet: about half unknown) the time (unknown) (no (unknown) (unknown) wks (units (unkno wn) date) unknown) (unknown) (no (unknown) (unknown) working on (units (unk nown) date) cutting down salt unknown) intake. (unknown) (no (unknown) (unknown) working smoke (units ( unknown) date) detector in home: unknown) Yes Result panel 25 (unknown) (no (unknown) (unknown) (no value) (units (unk nown) date) unknown) (unknown) (no (unknown) (unknown) (+0 oz) 146/80 (units (unknown) date) unknown) (unknown) (no (unknown) (unknown) (+10 lb) 120/82 (units (unknown) date) unknown) (unknown) (no (unknown) (unknown) (+10 lb) 140/86 (units (unknown) date) unknown) (unknown) (no (unknown) (unknown) (+10 lb) 140/90 (units (unknown) date) unknown) (unknown) (no (unknown) (unknown) (+3 lb) 160/116 (units (unknown) date) unknown) (unknown) (no (unknown) (unknown) (+4 oz) 126/70 (units (unknown) date) unknown) (unknown) (no (unknown) (unknown) (+6 lb) 134/84 (units (unknown) date) unknown) (unknown) (no (unknown) (unknown) (+9 lb) 136/90 (units (unknown) date) unknown) (unknown) (no (unknown) (unknown) (-12 lb) 140/84 (units (unknown) date) unknown) (unknown) (no (unknown) (unknown) Genetic (units (unkn own) date) Screening/Teratol unknown) ogy Counseling - Includes patient, baby's father, or (unknown) (no (unknown) (unknown) -?-?-?-?-?-?-?-? (units (unknown) date) -?-?-?-? unknown) (unknown) (no (unknown) (unknown) [id number] (units (unkno wn) date) unknown) (unknown) (no (unknown) (unknown) 09/02/22 (units (unkno wn) date) unknown) (unknown) (no (unknown) (unknown) 09/02/22] (units (unkn own) date) unknown) (unknown) (no (unknown) (unknown) 12/10/14 39 8 lb (units (unknown) date) 3 oz Female unknown) live - full term (unknown) (no (unknown) (unknown) 01/06/11 41 1 9 (units (unknown) date) lb 1 oz Male unknown) live - full term (unknown) (no (unknown) (unknown) 02/10/22 (units (unkno wn) date) unknown) (unknown) (no (unknown) (unknown) 03/16/22 (units (unkno wn) date) unknown) (unknown) (no (unknown) (unknown) 04/15/22 (units (unkno wn) date) unknown) (unknown) (no (unknown) (unknown) 05/13/22 (units (unkno wn) date) unknown) (unknown) (no (unknown) (unknown) 06/17/22 (units (unkno wn) date) unknown) (unknown) (no (unknown) (unknown) 07/01/22 (units (unkno wn) date) unknown) (unknown) (no (unknown) (unknown) 07/15/22 (units (unkno wn) date) unknown) (unknown) (no (unknown) (unknown) 07/29/22 (units (unkno wn) date) unknown) (unknown) (no (unknown) (unknown) 13w 5d 198 lb 4 (units (unknown) date) oz unknown) (unknown) (no (unknown) (unknown) 152/116 (units (unkno wn) date) unknown) (unknown) (no (unknown) (unknown) 15:44 (units (unkno wn) date) unknown) (unknown) (no (unknown) (unknown) 18w 0d 198 lb (units ( unknown) date) unknown) (unknown) (no (unknown) (unknown) 2+ 4wks (units (unkno wn) date) unknown) (unknown) (no (unknown) (unknown) 22w 0d 204 lb (units ( unknown) date) unknown) (unknown) (no (unknown) (unknown) 27w 0d 207 lb (units ( unknown) date) unknown) (unknown) (no (unknown) (unknown) 29w 0d 208 lb (units ( unknown) date) unknown) (unknown) (no (unknown) (unknown) 31w 0d 208 lb (units ( unknown) date) unknown) (unknown) (no (unknown) (unknown) 33w 0d 208 lb (units ( unknown) date) unknown) (unknown) (no (unknown) (unknown) 38w 0d 186 lb (units ( unknown) date) unknown) (unknown) (no (unknown) (unknown) 4wks (units (unkno wn) date) unknown) (unknown) (no (unknown) (unknown) 02/10, 300mg BID (units (unknown) date) 06/17. Baseline unknown) pre-eclampsia labs ordered. Will need qtri (unknown) (no (unknown) (unknown) 70mL/feed. (units (unk nown) date) unknown) (unknown) (no (unknown) (unknown) 8w 6d 201 lb (units (u nknown) date) unknown) (unknown) (no (unknown) (unknown) Abdomen with a (units (unknown) date) very itchy rash. unknown) Nothing on her hands and feet. Most (unknown) (no (unknown) (unknown) Abnormal lab (units (u nknown) date) values 1st unknown) trimester: discussed (unknown) (no (unknown) (unknown) Abnormal lab (units (u nknown) date) values 3rd unknown) trimester: discussed (unknown) (no (unknown) (unknown) Accompanied by: (units (unknown) date) Self / Same As unknown) Patient (unknown) (no (unknown) (unknown) Add'l Plan (units (unk nown) date) Details unknown) (unknown) (no (unknown) (unknown) Age/Sex: 32 / F (units (unknown) date) Date of Service: unknown) (unknown) (no (unknown) (unknown) Allergies (units (unkn own) date) unknown) (unknown) (no (unknown) (unknown) [facility] (units (unknown) date) Medicine unknown) (unknown) (no (unknown) (unknown) [place], [place] (units ( unknown) date) [id number] unknown) (unknown) (no (unknown) (unknown) Anatomy scan (units (u nknown) date) normal, 88th unknown) percentile (unknown) (no (unknown) (unknown) Anatomy u/s (units (un known) date) ordered unknown) (unknown) (no (unknown) (unknown) Anesthesia (units (unk nown) date) preference: Other unknown) (spinal for c/s) (unknown) (no (unknown) (unknown) Anesthesia/Analg (units (unknown) date) esia plans: unknown) discussed (unknown) (no (unknown) (unknown) Aneuploidy (units (unk nown) date) Screening unknown) Offered: Accepted (unknown) (no (unknown) (unknown) Antibiotic Eye (units (unknown) date) Drops-: Yes unknown) (unknown) (no (unknown) (unknown) Anticipated (units (un known) date) course of unknown) care: discussed (unknown) (no (unknown) (unknown) Assessment and (units (unknown) date) Plan unknown) (unknown) (no (unknown) (unknown) Asymptomatic. (units ( unknown) date) Vision changes unknown) improved with iron supplement. (unknown) (no (unknown) (unknown) Attending Dr: (units ( unknown) date) Rabia Gooden MD unknown) (unknown) (no (unknown) (unknown) BP 140/84 (units (unkn own) date) unknown) (unknown) (no (unknown) (unknown) BPs at home (units (un known) date) diastolic 90-93, unknown) systolic in 130s. No headaches. Pt is (unknown) (no (unknown) (unknown) BPs at home have (units (unknown) date) been 130/80-90s. unknown) Increase Labetalol to 400mg BID. (unknown) (no (unknown) (unknown) BPs at home have (units (unknown) date) been in normal unknown) range. (unknown) (no (unknown) (unknown) BPs have been (units ( unknown) date) consistently in unknown) good range, 110s/60s in general. (unknown) (no (unknown) (unknown) Baby came home (units (unknown) date) 08/26/22. unknown) (unknown) (no (unknown) (unknown) (units (unkno wn) date) Plan/Preferences unknown) (unknown) (no (unknown) (unknown) Planning (units (unknown) date) unknown) (unknown) (no (unknown) (unknown) Bladder: Reports (units (unknown) date) emptying; Denies unknown) pain with urination, urge incontinence or (unknown) (no (unknown) (unknown) Bleeding: Yes (units ( unknown) date) (clotting unknown) ping-pong ball size on 08/30, now just orange-brown (unknown) (no (unknown) (unknown) Blister (units (unkno wn) date) unknown) (unknown) (no (unknown) (unknown) Blood Pressure (units (unknown) date) Location Lt unknown) brachial (unknown) (no (unknown) (unknown) Blood (units (unkno wn) date) transfusions?: unknown) yes (unknown) (no (unknown) (unknown) Blues/Depression (units (unknown) date) /Anxiety: Yes unknown) (unknown) (no (unknown) (unknown) Bowel: Reports (units (unknown) date) daily and stool unknown) soft; Denies constipation or stool hard (unknown) (no (unknown) (unknown) Breastfeed Preg (units (unknown) date) Comp Name unknown) (unknown) (no (unknown) (unknown) Checking BPs at (units (unknown) date) home - before unknown) medication BPs usually 140s/80s. After (unknown) (no (unknown) (unknown) Chronic HTN - (units ( unknown) date) Switched to unknown) Labetalol with . Increased to 200mg BID (unknown) (no (unknown) (unknown) Chronic HTN (units (un known) date) started January unknown) 2020, on Lisinopril. Added Carvedilol. Switched (unknown) (no (unknown) (unknown) Chronic cough (units ( unknown) date) (-2000) unknown) (unknown) (no (unknown) (unknown) Confirmed (units (unkn own) date) 09/02/22] unknown) (unknown) (no (unknown) (unknown) Current Estimate (units (unknown) date) 09/16/22 LMP unknown) (Certain) 38w 0d (unknown) (no (unknown) (unknown) Current (units (unkno wn) date) History unknown) (unknown) (no (unknown) (unknown) : 1990 (units (unknown) date) Acct:[id number] unknown) (unknown) (no (unknown) (unknown) Date of positive (units (unknown) date) home unknown) test: 12/30/21 (unknown) (no (unknown) (unknown) Date (units (unkno wn) date) unknown) (unknown) (no (unknown) (unknown) Dating u/s (units (unk nown) date) concordant with unknown) LMP, keep CLAU 09/16/22. (unknown) (no (unknown) (unknown) Del. Date (units (unkn own) date) GA/Weeks Labor unknown) Lgth Wt Sex Route Outcome Anesthesia Place (unknown) (no (unknown) (unknown) Delayed cord (units (u nknown) date) clamping: Yes unknown) (unknown) (no (unknown) (unknown) Delivery Date: (units (unknown) date) 12/10/14 Last unknown) Updated by: Bianca Arenas R.N. (unknown) (no (unknown) (unknown) Delivery Date: (units (unknown) date) 01/06/11 Last unknown) Updated by: Bianca Arenas R.N. (unknown) (no (unknown) (unknown) Delivery Date: (units (unknown) date) 08/07/22 unknown) (unknown) (no (unknown) (unknown) Delv (units (unkno wn) date) unknown) (unknown) (no (unknown) (unknown) Denies Congenital (units (unknown) date) Heart Defect, unknown) Denies Down Syndrome, Denies Muscular Dystrophy, (unknown) (no (unknown) (unknown) Denies Maternal (units (unknown) date) Metabolic unknown) Disorder (EG,TYPE 1 Diabetes, PKU), Denies Patient or (unknown) (no (unknown) (unknown) Denies Neural (units ( unknown) date) Tube Defect unknown) (Meningomyelocele , Spina Bifida, or Anencephaly), (unknown) (no (unknown) (unknown) Denies Sickle (units ( unknown) date) Cell Disease or unknown) Trait (), Denies Hemophilia or other blood (unknown) (no (unknown) (unknown) Denies Willie-Sachs (units (unknown) date) (Ashkenazi unknown) Yarsani, Cajun, [place] Romanian), Denies Fred (unknown) (no (unknown) (unknown) Denies other (units (u nknown) date) unknown) (unknown) (no (unknown) (unknown) Denies over the (units (unknown) date) counter unknown) medications, Denies alcohol, Denies illicit drugs and (unknown) (no (unknown) (unknown) Depression (units (unk nown) date) unknown) (unknown) (no (unknown) (unknown) Depression: (units (un known) date) discussed unknown) (unknown) (no (unknown) (unknown) Dept at (units (unkno wn) date) . unknown) (unknown) (no (unknown) (unknown) Desires quad (units (u nknown) date) screen for unknown) genetic testing. (unknown) (no (unknown) (unknown) Diet and (units (unkno wn) date) Exercise unknown) (unknown) (no (unknown) (unknown) Disease (units (unkno wn) date) (Ashkenazi unknown) Yarsani), Denies Familial Dysautonomia (Ashkenazi Yarsani), (unknown) (no (unknown) (unknown) Documented By: (units (unknown) date) Rabia Gooden MD unknown) 09/02/22 1301 (unknown) (no (unknown) (unknown) Draft (units (unkno wn) date) unknown) (unknown) (no (unknown) (unknown) CLAU Calculator (units (unknown) date) unknown) (unknown) (no (unknown) (unknown) EGA Weight BP (units ( unknown) date) UGlucose unknown) (unknown) (no (unknown) (unknown) Estimated (units (unkn own) date) Delivery Date unknown) Method Current (unknown) (no (unknown) (unknown) Exercise and (units (u nknown) date) activity, unknown) work/environmenta l/hazards, Sexual activity, X-ray (unknown) (no (unknown) (unknown) FHT 167. Normal (units (unknown) date) adnexa and unknown) ovaries. (unknown) (no (unknown) (unknown) Failed glucola, (units (unknown) date) 3hr GTT needs to unknown) be scheduled, will schedule today. (unknown) (no (unknown) (unknown) Family History (units (unknown) date) (Reviewed unknown) 07/30/22 @ 11:31 by Karina Gaytan DO) (unknown) (no (unknown) (unknown) Father of Baby: (units (unknown) date) same unknown) (unknown) (no (unknown) (unknown) Feeding: breast (units (unknown) date) unknown) (unknown) (no (unknown) (unknown) movement (units (unknown) date) monitoring: unknown) discussed (unknown) (no (unknown) (unknown) First Trimester (units (unknown) date) Education unknown) Checklist (unknown) (no (unknown) (unknown) GERD getting (units (u nknown) date) worse. Tums unknown) doesn't help. - Discussed Pepcid (unknown) (no (unknown) (unknown) Genetic (units (unkno wn) date) Screening + unknown) Counseling (unknown) (no (unknown) (unknown) Genetic (units (unkno wn) date) Screening unknown) (unknown) (no (unknown) (unknown) Glucola competed (units (unknown) date) 07/14 at [facility] unknown) - records requested (unknown) (no (unknown) (unknown) Glucola ordered (units (unknown) date) unknown) (unknown) (no (unknown) (unknown) Grandfather (units (un known) date) Hypertension unknown) (unknown) (no (unknown) (unknown) Grandmother Type (units (unknown) date) 2 diabetes unknown) mellitus (unknown) (no (unknown) (unknown) 3 (units (unkn own) date) Multiple births unknown) (unknown) (no (unknown) (unknown) : 3 (units (unk nown) date) unknown) (unknown) (no (unknown) (unknown) Growth u/s (units (unk nown) date) scheduled 08/10. unknown) (unknown) (no (unknown) (unknown) Growth (units (unkno wn) date) ultrasound unknown) ordered today (unknown) (no (unknown) (unknown) HIV risk (units (unkno wn) date) evaluation: low unknown) risk (unknown) (no (unknown) (unknown) Health Center (units ( unknown) date) Education unknown) (unknown) (no (unknown) (unknown) Health center (units ( unknown) date) information: unknown) nature of practice discussed, personnel (unknown) (no (unknown) (unknown) Hep B-: (units ( unknown) date) Yes unknown) (unknown) (no (unknown) (unknown) Hepatitis C risk (units (unknown) date) evaluation: low unknown) risk (unknown) (no (unknown) (unknown) High risk (units (unkn own) date) type/reason(s): unknown) chronic HTN (unknown) (no (unknown) (unknown) History of (units (unk nown) date) Hepatitis B: No unknown) (unknown) (no (unknown) (unknown) History of (units (unk nown) date) Hepatitis C: No unknown) (unknown) (no (unknown) (unknown) History/Interim (units (unknown) date) Details unknown) (unknown) (no (unknown) (unknown) [facility] (units (u nknown) date) unknown) (unknown) (no (unknown) (unknown) [facility] (units (u nknown) date) Chorea, Denies unknown) Other inherited genetic or chromosomal disorder, (unknown) (no (unknown) (unknown) Hx # (units (u nknown) date) Pregnancies unknown) Elective abortions (unknown) (no (unknown) (unknown) Hx # Term (units (unkn own) date) Pregnancies 2 unknown) Ectopic pregnancies (unknown) (no (unknown) (unknown) Hx of prior (units (un known) date) unknown) (unknown) (no (unknown) (unknown) Hypertension (units (u nknown) date) unknown) (unknown) (no (unknown) (unknown) [facility] 3 months ot (units (unknown) date) unknown) (unknown) (no (unknown) (unknown) [facility] attempted (units (u nknown) date) unknown) (unknown) (no (unknown) (unknown) ITCHING (units (unkno wn) date) unknown) (unknown) (no (unknown) (unknown) Increased foot (units (unknown) date) swelling. No unknown) headaches, vision changes, RUQ pain. (unknown) (no (unknown) (unknown) (units (u nknown) date) Weight: 5 lbs unknown) 7.6oz (unknown) (no (unknown) (unknown) Longest (units (unknown) date) Sleep: 4 unknown) (unknown) (no (unknown) (unknown) Infant will be (units (unknown) date) adopted?: no unknown) (unknown) (no (unknown) (unknown) 's Sex: (units ( unknown) date) Male unknown) (unknown) (no (unknown) (unknown) Infection (units (unkn own) date) History unknown) (unknown) (no (unknown) (unknown) Infectious (units (unk nown) date) Disease Education unknown) (unknown) (no (unknown) (unknown) Infectious (units (unk nown) date) disease exposure: unknown) chicken pox immunity discussed, hepatitis risk (unknown) (no (unknown) (unknown) Initial Weight: (units (unknown) date) 198 lb unknown) (unknown) (no (unknown) (unknown) Initials (units (unkno wn) date) unknown) (unknown) (no (unknown) (unknown) Intake Note: (units (u nknown) date) unknown) (unknown) (no (unknown) (unknown) Intake (units (unkno wn) date) unknown) (unknown) (no (unknown) (unknown) Arma: (units (u nknown) date) Reports not unknown) resumed (unknown) (no (unknown) (unknown) Interim (units ( unknown) date) control method: unknown) Reports permanent sterilization (unknown) (no (unknown) (unknown) FELICITY (units (unkno wn) date) unknown) (unknown) (no (unknown) (unknown) Left breast (units (un known) date) producing little, unknown) 10mL when pumping. Right side with more (unknown) (no (unknown) (unknown) Legs have been (units (unknown) date) swelling unknown) slightly. She is wearing compression socks, (unknown) (no (unknown) (unknown) Live with (units (unkn own) date) someone with TB unknown) or exposed to TB: No (unknown) (no (unknown) (unknown) Loc: [facility] (units (unkno wn) date) unknown) (unknown) (no (unknown) (unknown) Marital status: (units (unknown) date) unmarried,living unknown) together (unknown) (no (unknown) (unknown) Medical History (units (unknown) date) (Reviewed unknown) 07/30/22 @ 11:31 by Karina Gaytan DO) (unknown) (no (unknown) (unknown) Medications (units (un known) date) unknown) (unknown) (no (unknown) (unknown) Mild (units (unkno wn) date) intermittent unknown) headaches. Can tell when BP is higher due to vision (unknown) (no (unknown) (unknown) Mother Age: 51 (units (unknown) date) Stroke unknown) (unknown) (no (unknown) (unknown) NSTs have (units (unkn own) date) started, unknown) reassuring thus far. (unknown) (no (unknown) (unknown) NSTs to start (units ( unknown) date) next week. Growth unknown) scan ordered. (unknown) (no (unknown) (unknown) Nausea is (units (unkn own) date) improved, unknown) tolerable now. (unknown) (no (unknown) (unknown) No no 150 absent (units (unknown) date) anatomy ordered unknown) 4wks (unknown) (no (unknown) (unknown) No no 167 absent (units (unknown) date) dating u/s 4wks unknown) (unknown) (no (unknown) (unknown) Notes (units (unkno wn) date) unknown) (unknown) (no (unknown) (unknown) Number of Living (units (unknown) date) Children 2 unknown) (unknown) (no (unknown) (unknown) Number of Weeks (units (unknown) date) Post : 4 unknown) (unknown) (no (unknown) (unknown) Number of (units (unkn own) date) fetuses:: Single unknown) (unknown) (no (unknown) (unknown) Nutrition and (units ( unknown) date) weight gain unknown) counseling: special diet: discussed (unknown) (no (unknown) (unknown) OB Office Visit (units (unknown) date) unknown) (unknown) (no (unknown) (unknown) OB Visit Log (units (u nknown) date) unknown) (unknown) (no (unknown) (unknown) On control (units (unknown) date) at conception?: unknown) Yes (OCP, stopped on learning of ) (unknown) (no (unknown) (unknown) Oxygen Delivery (units (unknown) date) Method room air unknown) (unknown) (no (unknown) (unknown) PFSH (units (unkno wn) date) unknown) (unknown) (no (unknown) (unknown) 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 (unknown) (no (unknown) (unknown) PUPP (pruritic (units (unknown) date) urticarial unknown) papules and plaques of ) (unknown) (no (unknown) (unknown) PUPPPS rash (units (un known) date) unknown) (unknown) (no (unknown) (unknown) Pain Control: (units ( unknown) date) Reports unknown) Uncontrolled (unknown) (no (unknown) (unknown) Pain to the (units (un known) date) right side of her unknown) incision. (unknown) (no (unknown) (unknown) Para 3 (units (unkno wn) date) Spontaneous unknown) abortions (unknown) (no (unknown) (unknown) Para: 3 (units (unkno wn) date) unknown) (unknown) (no (unknown) (unknown) Partner history (units (unknown) date) of STD: denies hx unknown) (unknown) (no (unknown) (unknown) Partner history (units (unknown) date) of genital unknown) herpes: No (unknown) (no (unknown) (unknown) Partner: Lloyd (units (unknown) date) [place] unknown) (unknown) (no (unknown) (unknown) Past Pregnancies (units (unknown) date) unknown) (unknown) (no (unknown) (unknown) Patient's age 35 (units (unknown) date) years or older as unknown) of estimated date of delivery: No (unknown) (no (unknown) (unknown) Patient: (units (unkno wn) date) Ga Hagan L unknown) MR#: [id number] (unknown) (no (unknown) (unknown) 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 Will be unknown) starting job at [employer] (unknown) (no (unknown) (unknown) Plan to obtain (units (unknown) date) baseline labs at unknown) next appt. Pt with increasing swelling (unknown) (no (unknown) (unknown) Plantar (units (unkno wn) date) fasciitis (-2016) unknown) (unknown) (no (unknown) (unknown) Position Sitting (units (unknown) date) unknown) (unknown) (no (unknown) (unknown) Post (units (un known) date) unknown) (unknown) (no (unknown) (unknown) (units (unkn own) date) Complications: unknown) hypertension (unknown) (no (unknown) (unknown) (units (unkn own) date) History unknown) (unknown) (no (unknown) (unknown) type:: (units (unknown) date) High Risk Other unknown) (unknown) (no (unknown) (unknown) (units (unkno wn) date) Education unknown) (unknown) (no (unknown) (unknown) Initial (units (unknown) date) Assessment unknown) (unknown) (no (unknown) (unknown) (units (unkno wn) date) Specific unknown) Issues/Plans (unknown) (no (unknown) (unknown) (units (unkno wn) date) Testing: unknown) discussed (unknown) (no (unknown) (unknown) Visit (units (unknown) date) unknown) (unknown) (no (unknown) (unknown) (units (unkno wn) date) education packet: unknown) Child education/plan, symptoms, (unknown) (no (unknown) (unknown) Prilosec. (units (unkn own) date) unknown) (unknown) (no (unknown) (unknown) Primary Care (units (u nknown) date) Provider: unknown) Sadie (unknown) (no (unknown) (unknown) Primary Ob (units (unk nown) date) Provider: unknown) Rabia Gooden (unknown) (no (unknown) (unknown) Prior (units (unkno wn) date) GBS-Infected unknown) child: No (unknown) (no (unknown) (unknown) Providers (units (unkn own) date) unknown) (unknown) (no (unknown) (unknown) Psoriasis (units (unkn own) date) unknown) (unknown) (no (unknown) (unknown) Pt arrives for a (units (unknown) date) post unknown) appointment. Delivered at 33 wks and 6 days. (unknown) (no (unknown) (unknown) Pt did not (units (unk nown) date) complete quad unknown) screen (unknown) (no (unknown) (unknown) Pt has been (units (un known) date) feeling somewhat unknown) winded. No swelling. (unknown) (no (unknown) (unknown) Pt has random (units ( unknown) date) days when she is unknown) sad, but feels it is within reason. (unknown) (no (unknown) (unknown) Pt hasn't been (units (unknown) date) checking BP at unknown) home, but when she did check was 130/80. (unknown) (no (unknown) (unknown) Pt is on 400mg (units (unknown) date) TID currently, unknown) Nifedipine 30mg XR. BPs have been 120-140/70-80s. (unknown) (no (unknown) (unknown) Pt is taking (units (u nknown) date) Tums and unknown) Prilosec, GERD still severe. Discussed BID dosing (unknown) (no (unknown) (unknown) Pt was on (units (unkn own) date) potassium unknown) supplement. (unknown) (no (unknown) (unknown) Pt was transfused (units (unknown) date) 9 units of PRBCs, unknown) plasma, and FFP while in the hospital due to (unknown) (no (unknown) (unknown) Pt with ongoing (units (unknown) date) LE swelling. unknown) Primarily left foot. No pain in (unknown) (no (unknown) (unknown) Pt with (units (unkno wn) date) significant unknown) nausea. Manageable thus far. Declines need for (unknown) (no (unknown) (unknown) Pulse 90 (units (unkno wn) date) unknown) (unknown) (no (unknown) (unknown) Pulse Oximetry (units (unknown) date) (%) 99 unknown) (unknown) (no (unknown) (unknown) Pulse Source (units (u nknown) date) Monitor unknown) (unknown) (no (unknown) (unknown) Quad screen (units (un known) date) ordered today. unknown) Anatomy scheduled. (unknown) (no (unknown) (unknown) RASH AND ITCHING (units (unknown) date) unknown) (unknown) (no (unknown) (unknown) RASH (units (unkno wn) date) unknown) (unknown) (no (unknown) (unknown) ROS (units (unkno wn) date) unknown) (unknown) (no (unknown) (unknown) Rash or viral (units ( unknown) date) illness since unknown) last menstrual period: No (unknown) (no (unknown) (unknown) Rash (units (unkno wn) date) unknown) (unknown) (no (unknown) (unknown) Reason For Visit (units (unknown) date) unknown) (unknown) (no (unknown) (unknown) Recent travel (units ( unknown) date) outside of unknown) country?: No (unknown) (no (unknown) (unknown) Recurrent (units (unkn own) date) loss or unknown) a stillbirth: No (unknown) (no (unknown) (unknown) Reminded to (units (un known) date) complete glucola. unknown) Growth u/s scheduled for later today. (unknown) (no (unknown) (unknown) Reminded to (units (un known) date) complete lab work unknown) (unknown) (no (unknown) (unknown) Repeat BP today (units (unknown) date) 132/86. No unknown) headaches, vision changes, RUQ pain, edema. Request (unknown) (no (unknown) (unknown) Rx Clobetasol to (units (unknown) date) help with unknown) itching. (unknown) (no (unknown) (unknown) Safety (units (unkno wn) date) unknown) (unknown) (no (unknown) (unknown) Salpingectomy (units ( unknown) date) completed. unknown) (unknown) (no (unknown) (unknown) Signed By: (units (unk nown) date) unknown) (unknown) (no (unknown) (unknown) Smoking Status: (units (unknown) date) Never smoker unknown) (unknown) (no (unknown) (unknown) Social History (units (unknown) date) unknown) (unknown) (no (unknown) (unknown) Status post (units (un known) date) appendectomy unknown) (-1993) (unknown) (no (unknown) (unknown) Status post (units (un known) date) delivery unknown) (01/06/11) (unknown) (no (unknown) (unknown) Status post (units (un known) date) delivery unknown) (unknown) (no (unknown) (unknown) Sulfa (units (unkno wn) date) (Sulfonamide unknown) Antibiotics) Allergy (Mild, Verified 09/02/22 15:44) (unknown) (no (unknown) (unknown) Support (units (unkno wn) date) Person(s):: unknown) Lloyd (unknown) (no (unknown) (unknown) Surgery date to (units (unknown) date) be requested for unknown) 09/09/22. Packet sent to dental scheduler. (unknown) (no (unknown) (unknown) Surgical History (units (unknown) date) (Reviewed unknown) 07/30/22 @ 11:31 by Karina Gaytan DO) (unknown) (no (unknown) (unknown) Surrogate (units (unkn own) date) ?: no unknown) (unknown) (no (unknown) (unknown) Symptoms since (units (unknown) date) LMP: Reports unknown) nausea, breast tenderness, urinary frequency, (unknown) (no (unknown) (unknown) Teratogen (units (unkn own) date) Exposures since unknown) LMP/Conception: Denies prescription medications, (unknown) (no (unknown) (unknown) Testing (units (unkno wn) date) Education unknown) (unknown) (no (unknown) (unknown) Testing (units (unkno wn) date) education unknown) completed: Spina bifida testing and Cell Free DNA (unknown) (no (unknown) (unknown) Third Trimester (units (unknown) date) Education unknown) Checklist (unknown) (no (unknown) (unknown) This note may (units ( unknown) date) have been all or unknown) partially generated using voice recognition (unknown) (no (unknown) (unknown) Tobacco + (units (unkn own) date) Substance Use unknown) (unknown) (no (unknown) (unknown) Tobacco Status (units (unknown) date) unknown) (unknown) (no (unknown) (unknown) Type of (units (unkno wn) date) Delivery: repeat unknown) C/S (unknown) (no (unknown) (unknown) Type(s) of (units (unk nown) date) exercise: none unknown) (unknown) (no (unknown) (unknown) UProtein Movement (units (unknown) date) PreLabor FHR Fndl unknown) Ht Pres Edema Cerv Exam US/Comment Next Appt (unknown) (no (unknown) (unknown) Ultrasound (units (unk nown) date) Details:: Dating unknown) u/s 02/10/22 - Single IUP. CRL consistent with 8w1d. (unknown) (no (unknown) (unknown) Ultrasound (units (unk nown) date) unknown) (unknown) (no (unknown) (unknown) Varicella/chicke (units (unknown) date) n pox status: unknown) previous disease (unknown) (no (unknown) (unknown) Visit Date: (units (un known) date) 02/10/22 Last unknown) Updated by: Rabia Gooden MD (unknown) (no (unknown) (unknown) Visit Date: (units (un known) date) 03/16/22 Last unknown) Updated by: Rabia Gooden MD (unknown) (no (unknown) (unknown) Visit Date: (units (un known) date) 04/15/22 Last unknown) Updated by: Rabia Gooden MD (unknown) (no (unknown) (unknown) Visit Date: (units (un known) date) 05/13/22 Last unknown) Updated by: Rabia Gooden MD (unknown) (no (unknown) (unknown) Visit Date: (units (un known) date) 06/17/22 Last unknown) Updated by: Rabia Gooden MD (unknown) (no (unknown) (unknown) Visit Date: (units (un known) date) 07/01/22 Last unknown) Updated by: Rabia Gooden MD (unknown) (no (unknown) (unknown) Visit Date: (units (un known) date) 07/15/22 Last unknown) Updated by: Rabia Gooden MD (unknown) (no (unknown) (unknown) Visit Date: (units (un known) date) 07/29/22 Last unknown) Updated by: Rabia Gooden MD (unknown) (no (unknown) (unknown) Visit Reasons: (units (unknown) date) post C section unknown) f/u (unknown) (no (unknown) (unknown) Vitals (units (unkno wn) date) unknown) (unknown) (no (unknown) (unknown) Vitamin (units (unkno wn) date) K-Infant: Yes unknown) (unknown) (no (unknown) (unknown) Vitamins and (units (u nknown) date) iron, Diet and unknown) weight gain, Fish and mercury intake, Caffeine use, (unknown) (no (unknown) (unknown) WG (units (unkno wn) date) unknown) (unknown) (no (unknown) (unknown) Weight 186 lb (units ( unknown) date) unknown) (unknown) (no (unknown) (unknown) 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 works at (unknown) (no (unknown) (unknown) Yes no 130 27 (units ( unknown) date) absent glucola unknown) ordered 2 (unknown) (no (unknown) (unknown) Yes no 132 28 (units ( unknown) date) absent 2wks unknown) (unknown) (no (unknown) (unknown) Yes no 134 31 (units ( unknown) date) absent 2wks unknown) (unknown) (no (unknown) (unknown) Yes no 140 30 (units ( unknown) date) absent 2wks unknown) (unknown) (no (unknown) (unknown) Yes no 144 21 (units ( unknown) date) abse unknown) (unknown) (no (unknown) (unknown) Yes yes 140 (units (un known) date) absent unknown) (unknown) (no (unknown) (unknown) Zika virus (units (unk nown) date) exposure: No unknown) (unknown) (no (unknown) (unknown) [Rx Confirmed (units ( unknown) date) 09/02/22] unknown) (unknown) (no (unknown) (unknown) alcohol intake: (units (unknown) date) former unknown) (unknown) (no (unknown) (unknown) amoxicillin (units (un known) date) Allergy (Mild, unknown) Verified 09/02/22 15:44) (unknown) (no (unknown) (unknown) anyone in either (units (unknown) date) family with: unknown) (unknown) (no (unknown) (unknown) 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 (units (unk nown) date) unknown) (unknown) (no (unknown) (unknown) azithromycin (units (u nknown) date) Allergy (Mild, unknown) Verified 09/02/22 15:44) (unknown) (no (unknown) (unknown) baby's father (units ( unknown) date) had a child with unknown) defects not listed above and Denies Other (unknown) (no (unknown) (unknown) caffeine: Yes (units ( unknown) date) unknown) (unknown) (no (unknown) (unknown) carbon monox (units (u nknown) date) detector in home: unknown) Yes (unknown) (no (unknown) (unknown) changes. Mild (units ( unknown) date) headaches - unknown) usually relieved quickly, stressed at work. No RUQ (unknown) (no (unknown) (unknown) changes. Mother (units (unknown) date) with unknown) due to severe pre-eclampsia at 23wks. (unknown) (no (unknown) (unknown) chlorhexidine (units ( unknown) date) Adverse Reaction unknown) (Intermediate, Verified 09/02/22 15:44) (unknown) (no (unknown) (unknown) clobetasol 0.05 (units (unknown) date) % topical unknown) ointment 1 applic topical BID #45 grams 07/01/22 [Rx (unknown) (no (unknown) (unknown) consistent with (units (unknown) date) PUPPS, but bile unknown) acids ordered to ensure no cholestasis as well. (unknown) (no (unknown) (unknown) current (units (unkno wn) date) occupational unknown) exposures/hazards : No (unknown) (no (unknown) (unknown) daily servings (units (unknown) date) fruits/ve-1 unknown) (unknown) (no (unknown) (unknown) described, visit (units (unknown) date) schedule unknown) reviewed, ultrasounds policy reviewed, coverage 24 (unknown) (no (unknown) (unknown) discharge) (units (unk nown) date) unknown) (unknown) (no (unknown) (unknown) discussed, (units (unk nown) date) tuberculosis unknown) exposure discussed, CMV discussed, Toxoplasmosis (unknown) (no (unknown) (unknown) disorders, (units (unk nown) date) Denies Cystic unknown) Fibrosis, Denies Mental Retardation/Autis m, Denies (unknown) (no (unknown) (unknown) do you feel safe (units (unknown) date) at home: Yes unknown) (unknown) (no (unknown) (unknown) during the past (units (unknown) date) year weight has: unknown) remained stable (unknown) (no (unknown) (unknown) eclampsia - (units (un known) date) diagnosed 08/04 unknown) at 33w6d. Started Nifedipine 30mg XR. Plan on (unknown) (no (unknown) (unknown) education level: (units (unknown) date) other unknown) (unknown) (no (unknown) (unknown) exposure, (units (unkn own) date) Medication use, unknown) Sauna/hot tub use, Dental care, Travel and Influenza (unknown) (no (unknown) (unknown) feet/calves. (units (u nknown) date) Discussed unknown) elevation, water, decreased salt intake. (unknown) (no (unknown) (unknown) fire (units (unkno wn) date) extinguisher in unknown) home: Yes (unknown) (no (unknown) (unknown) firearms in (units (un known) date) home: No unknown) (unknown) (no (unknown) (unknown) have occurred. (units (unknown) date) If there are any unknown) questions, please contact the Medical Records (unknown) (no (unknown) (unknown) hemorrhage. (units (un known) date) Discharged on unknown) 08/14. (unknown) (no (unknown) (unknown) her Jeaneth (units (unkn own) date) unknown) (unknown) (no (unknown) (unknown) hours a day and (units (unknown) date) participation of unknown) father in care and office visits (unknown) (no (unknown) (unknown) household (units (unkn own) date) members: unknown) significant other and children (unknown) (no (unknown) (unknown) housing: (units (unkno wn) date) apartment unknown) (unknown) (no (unknown) (unknown) hyperemesis 1st (units (unknown) date) trimester unknown) (unknown) (no (unknown) (unknown) irritability, (units ( unknown) date) bloating and unknown) other (unknown) (no (unknown) (unknown) labetalol 100 mg (units (unknown) date) tablet 400 mg PO unknown) BID #360 tabs 08/04/22 [Rx Confirmed 09/02/22] (unknown) (no (unknown) (unknown) labs today (units (unk nown) date) unknown) (unknown) (no (unknown) (unknown) latex Adverse (units ( unknown) date) Reaction (Mild, unknown) Verified 09/02/22 15:44) (unknown) (no (unknown) (unknown) lives (units (unkno wn) date) independently: unknown) Yes (unknown) (no (unknown) (unknown) marital status: (units (unknown) date) unmarried,living unknown) together (unknown) (no (unknown) (unknown) may occur. (units (unk nown) date) Occasional unknown) wrong-word or 'sound-alike' substitutions may have (unknown) (no (unknown) (unknown) medication (units (unk nown) date) 110/90 was the unknown) highest, usually diastolic in the 80s. No vision (unknown) (no (unknown) (unknown) mester if well (units (unknown) date) controlled (2nd unknown) trimester normal). Started baby aspirin at 12 (unknown) (no (unknown) (unknown) nifedipine 30 mg (units (unknown) date) tablet,extended unknown) release 24 hr 30 mg PO DAILY #30 tabs 08/04/22 (unknown) (no (unknown) (unknown) nt (units (unkno wn) date) unknown) (unknown) (no (unknown) (unknown) number of (units (unkn own) date) children: 2 unknown) (unknown) (no (unknown) (unknown) occupational (units (u nknown) date) status: employed unknown) (unknown) (no (unknown) (unknown) occurred due to (units (unknown) date) the inherent unknown) limitations of voice recognition software. Please (unknown) (no (unknown) (unknown) other Camron (units (un known) date) unknown) (unknown) (no (unknown) (unknown) pain. Pt will (units ( unknown) date) complete 24hr unknown) protein this week. (unknown) (no (unknown) (unknown) pets and (units (unkno wn) date) animals: Yes (1 unknown) cat (pt is not managing litter box)) (unknown) (no (unknown) (unknown) precautions, (units (u nknown) date) Listeriosis unknown) prevention and Rubella Immunization (unknown) (no (unknown) (unknown) prenat.vits,miguel, (units (unknown) date) [id number] 1 unknown) tab PO DAILY 01/27/22 [History Confirmed (unknown) (no (unknown) (unknown) production - (units (u nknown) date) total 50mL when unknown) pumping. Pumping every 3 hours. He is feeding 50 (unknown) (no (unknown) (unknown) pt check her BPs (units (unknown) date) at home daily and unknown) bring log to next appt. (unknown) (no (unknown) (unknown) read the note (units ( unknown) date) carefully and unknown) recognize, using context, where these substitutions (unknown) (no (unknown) (unknown) seatbelt use: (units ( unknown) date) always unknown) (unknown) (no (unknown) (unknown) second hand (units (un known) date) exposure: No unknown) (unknown) (no (unknown) (unknown) seeing spots (units (u nknown) date) primarily later unknown) in the day. Increase Labetalol to 300mg BID. (unknown) (no (unknown) (unknown) software. (units (unkn own) date) Although every unknown) effort is made to edit content, white sidewall tire buffer errors (unknown) (no (unknown) (unknown) soon. (units (unkno wn) date) unknown) (unknown) (no (unknown) (unknown) special fly (units ( unknown) date) needs: No unknown) (unknown) (no (unknown) (unknown) stress (units (unkno wn) date) incontinence unknown) (unknown) (no (unknown) (unknown) substance use (units ( unknown) date) type: marijuana unknown) (unknown) (no (unknown) (unknown) to Labetalol (units (u nknown) date) with . unknown) BP quite elevated today. Increase to 200mg daily (unknown) (no (unknown) (unknown) today. Acutely (units (unknown) date) worse today. BPs unknown) at home have been 120/70-80s. - Will obtain (unknown) (no (unknown) (unknown) today. Baseline (units (unknown) date) pre-eclampsia unknown) labs ordered. (unknown) (no (unknown) (unknown) vaccine (units (unkno wn) date) unknown) (unknown) (no (unknown) (unknown) water heater (units (u nknown) date) temp set < 120 unknown) deg: Yes (Will check and adjust if needed) (unknown) (no (unknown) (unknown) weekly labs. (units (u nknown) date) testing unknown) still. Delivery at 37wks (requested 08/26/22) (unknown) (no (unknown) (unknown) weeks. NSTs (units (un known) date) starting at unknown) 32wks. Serial growth ultrasounds (last 08/04). Pre (unknown) (no (unknown) (unknown) well-balanced (units ( unknown) date) diet: about half unknown) the time (unknown) (no (unknown) (unknown) wks (units (unkno wn) date) unknown) (unknown) (no (unknown) (unknown) working on (units (unk nown) date) cutting down salt unknown) intake. (unknown) (no (unknown) (unknown) working smoke (units ( unknown) date) detector in home: unknown) Yes Result panel 26 (unknown) (no (unknown) (unknown) (no value) (units (unk nown) date) unknown) (unknown) (no (unknown) (unknown) (+0 oz) 146/80 (units (unknown) date) unknown) (unknown) (no (unknown) (unknown) (+10 lb) 120/82 (units (unknown) date) unknown) (unknown) (no (unknown) (unknown) (+10 lb) 140/86 (units (unknown) date) unknown) (unknown) (no (unknown) (unknown) (+10 lb) 140/90 (units (unknown) date) unknown) (unknown) (no (unknown) (unknown) (+3 lb) 160/116 (units (unknown) date) unknown) (unknown) (no (unknown) (unknown) (+4 oz) 126/70 (units (unknown) date) unknown) (unknown) (no (unknown) (unknown) (+6 lb) 134/84 (units (unknown) date) unknown) (unknown) (no (unknown) (unknown) (+9 lb) 136/90 (units (unknown) date) unknown) (unknown) (no (unknown) (unknown) (-12 lb) 140/84 (units (unknown) date) unknown) (unknown) (no (unknown) (unknown) (1) Essential (units ( unknown) date) hypertension: unknown) (unknown) (no (unknown) (unknown) Genetic (units (unkn own) date) Screening/Teratol unknown) ogy Counseling - Includes patient, baby's father, or (unknown) (no (unknown) (unknown) -?-?-?-?-?-?-?-? (units (unknown) date) -?-?-?-? unknown) (unknown) (no (unknown) (unknown) [id number] (units (unkno wn) date) unknown) (unknown) (no (unknown) (unknown) 09/02/22 (units (unkno wn) date) unknown) (unknown) (no (unknown) (unknown) 09/02/22] (units (unkn own) date) unknown) (unknown) (no (unknown) (unknown) 12/10/14 39 8 lb (units (unknown) date) 3 oz Female unknown) live - full term (unknown) (no (unknown) (unknown) 01/06/11 41 1 9 (units (unknown) date) lb 1 oz Male unknown) live - full term (unknown) (no (unknown) (unknown) 02/10/22 (units (unkno wn) date) unknown) (unknown) (no (unknown) (unknown) 03/16/22 (units (unkno wn) date) unknown) (unknown) (no (unknown) (unknown) 04/15/22 (units (unkno wn) date) unknown) (unknown) (no (unknown) (unknown) 05/13/22 (units (unkno wn) date) unknown) (unknown) (no (unknown) (unknown) 06/17/22 (units (unkno wn) date) unknown) (unknown) (no (unknown) (unknown) 07/01/22 (units (unkno wn) date) unknown) (unknown) (no (unknown) (unknown) 07/15/22 (units (unkno wn) date) unknown) (unknown) (no (unknown) (unknown) 07/29/22 (units (unkno wn) date) unknown) (unknown) (no (unknown) (unknown) 13w 5d 198 lb 4 (units (unknown) date) oz unknown) (unknown) (no (unknown) (unknown) 152/116 (units (unkno wn) date) unknown) (unknown) (no (unknown) (unknown) 15:44 (units (unkno wn) date) unknown) (unknown) (no (unknown) (unknown) 18w 0d 198 lb (units ( unknown) date) unknown) (unknown) (no (unknown) (unknown) 2+ 4wks (units (unkno wn) date) unknown) (unknown) (no (unknown) (unknown) 22w 0d 204 lb (units ( unknown) date) unknown) (unknown) (no (unknown) (unknown) 27w 0d 207 lb (units ( unknown) date) unknown) (unknown) (no (unknown) (unknown) 29w 0d 208 lb (units ( unknown) date) unknown) (unknown) (no (unknown) (unknown) 31w 0d 208 lb (units ( unknown) date) unknown) (unknown) (no (unknown) (unknown) 33w 0d 208 lb (units ( unknown) date) unknown) (unknown) (no (unknown) (unknown) 38w 0d 186 lb (units ( unknown) date) unknown) (unknown) (no (unknown) (unknown) 4wks (units (unkno wn) date) unknown) (unknown) (no (unknown) (unknown) 02/10, 300mg BID (units (unknown) date) 06/17. Baseline unknown) pre-eclampsia labs ordered. Will need qtri (unknown) (no (unknown) (unknown) 70mL/feed. (units (unk nown) date) unknown) (unknown) (no (unknown) (unknown) 8w 6d 201 lb (units (u nknown) date) unknown) (unknown) (no (unknown) (unknown) Abdomen with a (units (unknown) date) very itchy rash. unknown) Nothing on her hands and feet. Most (unknown) (no (unknown) (unknown) Abnormal lab (units (u nknown) date) values 1st unknown) trimester: discussed (unknown) (no (unknown) (unknown) Abnormal lab (units (u nknown) date) values 3rd unknown) trimester: discussed (unknown) (no (unknown) (unknown) Accompanied by: (units (unknown) date) Self / Same As unknown) Patient (unknown) (no (unknown) (unknown) Add'l Plan (units (unk nown) date) Details unknown) (unknown) (no (unknown) (unknown) Age/Sex: 32 / F (units (unknown) date) Date of Service: unknown) (unknown) (no (unknown) (unknown) Allergies (units (unkn own) date) unknown) (unknown) (no (unknown) (unknown) [facility] (units (unknown) date) Medicine unknown) (unknown) (no (unknown) (unknown) [place], [place] (units ( unknown) date) [id number] unknown) (unknown) (no (unknown) (unknown) Anatomy scan (units (u nknown) date) normal, 88th unknown) percentile (unknown) (no (unknown) (unknown) Anatomy u/s (units (un known) date) ordered unknown) (unknown) (no (unknown) (unknown) Anesthesia (units (unk nown) date) preference: Other unknown) (spinal for c/s) (unknown) (no (unknown) (unknown) Anesthesia/Analg (units (unknown) date) esia plans: unknown) discussed (unknown) (no (unknown) (unknown) Aneuploidy (units (unk nown) date) Screening unknown) Offered: Accepted (unknown) (no (unknown) (unknown) Antibiotic Eye (units (unknown) date) Drops-Infant: Yes unknown) (unknown) (no (unknown) (unknown) Anticipated (units (un known) date) course of unknown) care: discussed (unknown) (no (unknown) (unknown) Assessment and (units (unknown) date) Plan unknown) (unknown) (no (unknown) (unknown) Asymptomatic. (units ( unknown) date) Vision changes unknown) improved with iron supplement. (unknown) (no (unknown) (unknown) Attending Dr: (units ( unknown) date) Rabia Gooden MD unknown) (unknown) (no (unknown) (unknown) BP 140/84 (units (unkn own) date) unknown) (unknown) (no (unknown) (unknown) BP checks (units (unkn own) date) unknown) (unknown) (no (unknown) (unknown) BPs at home (units (un known) date) diastolic 90-93, unknown) systolic in 130s. No headaches. Pt is (unknown) (no (unknown) (unknown) BPs at home have (units (unknown) date) been 130/80-90s. unknown) Increase Labetalol to 400mg BID. (unknown) (no (unknown) (unknown) BPs at home have (units (unknown) date) been in normal unknown) range. (unknown) (no (unknown) (unknown) BPs have been (units ( unknown) date) consistently in unknown) good range, 110s/60s in general. (unknown) (no (unknown) (unknown) Baby came home (units (unknown) date) 08/26/22. unknown) (unknown) (no (unknown) (unknown) (units (unkno wn) date) Plan/Preferences unknown) (unknown) (no (unknown) (unknown) Planning (units (unknown) date) unknown) (unknown) (no (unknown) (unknown) Bladder: Reports (units (unknown) date) emptying; Denies unknown) pain with urination, urge incontinence or (unknown) (no (unknown) (unknown) Bleeding: Yes (units ( unknown) date) (clotting unknown) ping-pong ball size on 08/30, now just orange-brown (unknown) (no (unknown) (unknown) Blister (units (unkno wn) date) unknown) (unknown) (no (unknown) (unknown) Blood Pressure (units (unknown) date) Location Lt unknown) brachial (unknown) (no (unknown) (unknown) Blood (units (unkno wn) date) transfusions?: unknown) yes (unknown) (no (unknown) (unknown) Blues/Depression (units (unknown) date) /Anxiety: Yes unknown) (unknown) (no (unknown) (unknown) Bowel: Reports (units (unknown) date) daily and stool unknown) soft; Denies constipation or stool hard (unknown) (no (unknown) (unknown) Breastfeed Preg (units (unknown) date) Comp Name unknown) (unknown) (no (unknown) (unknown) Checking BPs at (units (unknown) date) home - before unknown) medication BPs usually 140s/80s. After (unknown) (no (unknown) (unknown) Chronic HTN - (units ( unknown) date) Switched to unknown) Labetalol with . Increased to 200mg BID (unknown) (no (unknown) (unknown) Chronic HTN (units (un known) date) started January unknown) 2020, on Lisinopril. Added Carvedilol. Switched (unknown) (no (unknown) (unknown) Chronic cough (units ( unknown) date) () unknown) (unknown) (no (unknown) (unknown) Confirmed (units (unkn own) date) 09/02/22] unknown) (unknown) (no (unknown) (unknown) Current Estimate (units (unknown) date) 09/16/22 LMP unknown) (Certain) 38w 0d (unknown) (no (unknown) (unknown) Current (units (unkno wn) date) History unknown) (unknown) (no (unknown) (unknown) : 1990 (units (unknown) date) Acct:[id number] unknown) (unknown) (no (unknown) (unknown) Date of positive (units (unknown) date) home unknown) test: 12/30/21 (unknown) (no (unknown) (unknown) Date (units (unkno wn) date) unknown) (unknown) (no (unknown) (unknown) Dating u/s (units (unk nown) date) concordant with unknown) LMP, keep CLAU 09/16/22. (unknown) (no (unknown) (unknown) Del. Date (units (unkn own) date) GA/Weeks Labor unknown) Lgth Wt Sex Route Outcome Anesthesia Place (unknown) (no (unknown) (unknown) Delayed cord (units (u nknown) date) clamping: Yes unknown) (unknown) (no (unknown) (unknown) Delivery Date: (units (unknown) date) 12/10/14 Last unknown) Updated by: Bianca Arenas R.N. (unknown) (no (unknown) (unknown) Delivery Date: (units (unknown) date) 01/06/11 Last unknown) Updated by: Bianca Arenas R.N. (unknown) (no (unknown) (unknown) Delivery Date: (units (unknown) date) 08/07/22 unknown) (unknown) (no (unknown) (unknown) Delv (units (unkno wn) date) unknown) (unknown) (no (unknown) (unknown) Denies Congenital (units (unknown) date) Heart Defect, unknown) Denies Down Syndrome, Denies Muscular Dystrophy, (unknown) (no (unknown) (unknown) Denies Maternal (units (unknown) date) Metabolic unknown) Disorder (EG,TYPE 1 Diabetes, PKU), Denies Patient or (unknown) (no (unknown) (unknown) Denies Neural (units ( unknown) date) Tube Defect unknown) (Meningomyelocele , Spina Bifida, or Anencephaly), (unknown) (no (unknown) (unknown) Denies Sickle (units ( unknown) date) Cell Disease or unknown) Trait (), Denies Hemophilia or other blood (unknown) (no (unknown) (unknown) Denies Willie-Sachs (units (unknown) date) (Ashkenazi unknown) Yarsani, Cajun, [place] Romanian), Denies Fred (unknown) (no (unknown) (unknown) Denies other (units (u nknown) date) unknown) (unknown) (no (unknown) (unknown) Denies over the (units (unknown) date) counter unknown) medications, Denies alcohol, Denies illicit drugs and (unknown) (no (unknown) (unknown) Depression (units (unk nown) date) unknown) (unknown) (no (unknown) (unknown) Depression: (units (un known) date) discussed unknown) (unknown) (no (unknown) (unknown) Dept at (units (unkno wn) date) . unknown) (unknown) (no (unknown) (unknown) Desires quad (units (u nknown) date) screen for unknown) genetic testing. (unknown) (no (unknown) (unknown) Diet and (units (unkno wn) date) Exercise unknown) (unknown) (no (unknown) (unknown) Disease (units (unkno wn) date) (Ashkenazi unknown) Yarsani), Denies Familial Dysautonomia (Ashkenazi Yarsani), (unknown) (no (unknown) (unknown) Documented By: (units (unknown) date) Rabia Gooden MD unknown) 09/02/22 1301 (unknown) (no (unknown) (unknown) Draft (units (unkno wn) date) unknown) (unknown) (no (unknown) (unknown) CLAU Calculator (units (unknown) date) unknown) (unknown) (no (unknown) (unknown) EGA Weight BP (units ( unknown) date) UGlucose unknown) (unknown) (no (unknown) (unknown) Estimated (units (unkn own) date) Delivery Date unknown) Method Current (unknown) (no (unknown) (unknown) Exercise and (units (u nknown) date) activity, unknown) work/environmenta l/hazards, Sexual activity, X-ray (unknown) (no (unknown) (unknown) F/U in 2 weeks (units (unknown) date) unknown) (unknown) (no (unknown) (unknown) FHT 167. Normal (units (unknown) date) adnexa and unknown) ovaries. (unknown) (no (unknown) (unknown) Failed glucola, (units (unknown) date) 3hr GTT needs to unknown) be scheduled, will schedule today. (unknown) (no (unknown) (unknown) Family History (units (unknown) date) (Reviewed unknown) 07/30/22 @ 11:31 by Karina Gaytan DO) (unknown) (no (unknown) (unknown) Father of Baby: (units (unknown) date) same unknown) (unknown) (no (unknown) (unknown) Feeding: breast (units (unknown) date) unknown) (unknown) (no (unknown) (unknown) movement (units (unknown) date) monitoring: unknown) discussed (unknown) (no (unknown) (unknown) First Trimester (units (unknown) date) Education unknown) Checklist (unknown) (no (unknown) (unknown) GERD getting (units (u nknown) date) worse. Tums unknown) doesn't help. - Discussed Pepcid (unknown) (no (unknown) (unknown) Genetic (units (unkno wn) date) Screening + unknown) Counseling (unknown) (no (unknown) (unknown) Genetic (units (unkno wn) date) Screening unknown) (unknown) (no (unknown) (unknown) Glucola competed (units (unknown) date) 07/14 at [facility] unknown) - records requested (unknown) (no (unknown) (unknown) Glucola ordered (units (unknown) date) unknown) (unknown) (no (unknown) (unknown) Grandfather (units (un known) date) Hypertension unknown) (unknown) (no (unknown) (unknown) Grandmother Type (units (unknown) date) 2 diabetes unknown) mellitus (unknown) (no (unknown) (unknown) 3 (units (unkn own) date) Multiple births unknown) (unknown) (no (unknown) (unknown) : 3 (units (unk nown) date) unknown) (unknown) (no (unknown) (unknown) Growth u/s (units (unk nown) date) scheduled 08/10. unknown) (unknown) (no (unknown) (unknown) Growth (units (unkno wn) date) ultrasound unknown) ordered today (unknown) (no (unknown) (unknown) HIV risk (units (unkno wn) date) evaluation: low unknown) risk (unknown) (no (unknown) (unknown) Health Center (units ( unknown) date) Education unknown) (unknown) (no (unknown) (unknown) Health center (units ( unknown) date) information: unknown) nature of practice discussed, personnel (unknown) (no (unknown) (unknown) Hep B-: (units ( unknown) date) Yes unknown) (unknown) (no (unknown) (unknown) Hepatitis C risk (units (unknown) date) evaluation: low unknown) risk (unknown) (no (unknown) (unknown) High risk (units (unkn own) date) type/reason(s): unknown) chronic HTN (unknown) (no (unknown) (unknown) History of (units (unk nown) date) Hepatitis B: No unknown) (unknown) (no (unknown) (unknown) History of (units (unk nown) date) Hepatitis C: No unknown) (unknown) (no (unknown) (unknown) History/Interim (units (unknown) date) Details unknown) (unknown) (no (unknown) (unknown) [facility] (units (u [facility] unknown) (unknown) (no (unknown) (unknown) [facility] (units (u nknown) date) Chorea, Denies unknown) Other inherited genetic or chromosomal disorder, (unknown) (no (unknown) (unknown) Hx # (units (u nknown) date) Pregnancies unknown) Elective abortions (unknown) (no (unknown) (unknown) Hx # Term (units (unkn own) date) Pregnancies 2 unknown) Ectopic pregnancies (unknown) (no (unknown) (unknown) Hx of prior (units (un known) date) unknown) (unknown) (no (unknown) (unknown) Hypertension (units (u nknown) date) unknown) (unknown) (no (unknown) (unknown) [facility] 3 months ot (units (unknown) date) unknown) (unknown) (no (unknown) (unknown) [facility] attempted (units (u nknown) date) unknown) (unknown) (no (unknown) (unknown) ITCHING (units (unkno wn) date) unknown) (unknown) (no (unknown) (unknown) Increased foot (units (unknown) date) swelling. No unknown) headaches, vision changes, RUQ pain. (unknown) (no (unknown) (unknown) Infant (units (u nknown) date) Weight: 5 lbs unknown) 7.6oz (unknown) (no (unknown) (unknown) Infant Longest (units (unknown) date) Sleep: 4 unknown) (unknown) (no (unknown) (unknown) will be (units (unknown) date) adopted?: no unknown) (unknown) (no (unknown) (unknown) Infant's Sex: (units ( unknown) date) Male unknown) (unknown) (no (unknown) (unknown) Infection (units (unkn own) date) History unknown) (unknown) (no (unknown) (unknown) Infectious (units (unk nown) date) Disease Education unknown) (unknown) (no (unknown) (unknown) Infectious (units (unk nown) date) disease exposure: unknown) chicken pox immunity discussed, hepatitis risk (unknown) (no (unknown) (unknown) Initial Weight: (units (unknown) date) 198 lb unknown) (unknown) (no (unknown) (unknown) Initials (units (unkno wn) date) unknown) (unknown) (no (unknown) (unknown) Intake Note: (units (u nknown) date) unknown) (unknown) (no (unknown) (unknown) Intake (units (unkno wn) date) unknown) (unknown) (no (unknown) (unknown) Arma: (units (u nknown) date) Reports not unknown) resumed (unknown) (no (unknown) (unknown) Interim (units ( unknown) date) control method: unknown) Reports permanent sterilization (unknown) (no (unknown) (unknown) FELICITY (units (unkno wn) date) unknown) (unknown) (no (unknown) (unknown) Left breast (units (un known) date) producing little, unknown) 10mL when pumping. Right side with more (unknown) (no (unknown) (unknown) Legs have been (units (unknown) date) swelling unknown) slightly. She is wearing compression socks, (unknown) (no (unknown) (unknown) Live with (units (unkn own) date) someone with TB unknown) or exposed to TB: No (unknown) (no (unknown) (unknown) Loc: [facility] (units (unkno wn) date) unknown) (unknown) (no (unknown) (unknown) Marital status: (units (unknown) date) unmarried,living unknown) together (unknown) (no (unknown) (unknown) Medical History (units (unknown) date) (Reviewed unknown) 07/30/22 @ 11:31 by Karina Gaytan DO) (unknown) (no (unknown) (unknown) Medications (units (un known) date) unknown) (unknown) (no (unknown) (unknown) Mild (units (unkno wn) date) intermittent unknown) headaches. Can tell when BP is higher due to vision (unknown) (no (unknown) (unknown) Mother Age: 51 (units (unknown) date) Stroke unknown) (unknown) (no (unknown) (unknown) NSTs have (units (unkn own) date) started, unknown) reassuring thus far. (unknown) (no (unknown) (unknown) NSTs to start (units ( unknown) date) next week. Growth unknown) scan ordered. (unknown) (no (unknown) (unknown) Nausea is (units (unkn own) date) improved, unknown) tolerable now. (unknown) (no (unknown) (unknown) No no 150 absent (units (unknown) date) anatomy ordered unknown) 4wks (unknown) (no (unknown) (unknown) No no 167 absent (units (unknown) date) dating u/s 4wks unknown) (unknown) (no (unknown) (unknown) Notes (units (unkno wn) date) unknown) (unknown) (no (unknown) (unknown) Number of Living (units (unknown) date) Children 2 unknown) (unknown) (no (unknown) (unknown) Number of Weeks (units (unknown) date) Post : 4 unknown) (unknown) (no (unknown) (unknown) Number of (units (unkn own) date) fetuses:: Single unknown) (unknown) (no (unknown) (unknown) Nutrition and (units ( unknown) date) weight gain unknown) counseling: special diet: discussed (unknown) (no (unknown) (unknown) OB Office Visit (units (unknown) date) unknown) (unknown) (no (unknown) (unknown) OB Visit Log (units (u nknown) date) unknown) (unknown) (no (unknown) (unknown) On control (units (unknown) date) at conception?: unknown) Yes (OCP, stopped on learning of ) (unknown) (no (unknown) (unknown) Oxygen Delivery (units (unknown) date) Method room air unknown) (unknown) (no (unknown) (unknown) PFSH (units (unkno wn) date) unknown) (unknown) (no (unknown) (unknown) 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 (unknown) (no (unknown) (unknown) PUPP (pruritic (units (unknown) date) urticarial unknown) papules and plaques of ) (unknown) (no (unknown) (unknown) PUPPPS rash (units (un known) date) unknown) (unknown) (no (unknown) (unknown) Pain Control: (units ( unknown) date) Reports unknown) Uncontrolled (unknown) (no (unknown) (unknown) Pain to the (units (un known) date) right side of her unknown) incision. (unknown) (no (unknown) (unknown) Para 3 (units (unkno wn) date) Spontaneous unknown) abortions (unknown) (no (unknown) (unknown) Para: 3 (units (unkno wn) date) unknown) (unknown) (no (unknown) (unknown) Partner history (units (unknown) date) of STD: denies hx unknown) (unknown) (no (unknown) (unknown) Partner history (units (unknown) date) of genital unknown) herpes: No (unknown) (no (unknown) (unknown) Partner: Lloyd (units (unknown) date) [place] unknown) (unknown) (no (unknown) (unknown) Past Pregnancies (units (unknown) date) unknown) (unknown) (no (unknown) (unknown) Patient's age 35 (units (unknown) date) years or older as unknown) of estimated date of delivery: No (unknown) (no (unknown) (unknown) Patient: (units (unkno wn) date) Ga H[place] L unknown) MR#: [id number] (unknown) (no (unknown) (unknown) 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 Will be unknown) starting job at [employer] (unknown) (no (unknown) (unknown) Plan to obtain (units (unknown) date) baseline labs at unknown) next appt. Pt with increasing swelling (unknown) (no (unknown) (unknown) Plan (units (unkno wn) date) unknown) (unknown) (no (unknown) (unknown) Plantar (units (unkno wn) date) fasciitis (-2016) unknown) (unknown) (no (unknown) (unknown) Position Sitting (units (unknown) date) unknown) (unknown) (no (unknown) (unknown) Post (units (un known) date) unknown) (unknown) (no (unknown) (unknown) (units (unkn own) date) Complications: unknown) hypertension (unknown) (no (unknown) (unknown) (units (unkn own) date) History unknown) (unknown) (no (unknown) (unknown) type:: (units (unknown) date) High Risk Other unknown) (unknown) (no (unknown) (unknown) (units (unkno wn) date) Education unknown) (unknown) (no (unknown) (unknown) Initial (units (unknown) date) Assessment unknown) (unknown) (no (unknown) (unknown) (units (unkno wn) date) Specific unknown) Issues/Plans (unknown) (no (unknown) (unknown) (units (unkno wn) date) Testing: unknown) discussed (unknown) (no (unknown) (unknown) Visit (units (unknown) date) unknown) (unknown) (no (unknown) (unknown) (units (unkno wn) date) education packet: unknown) Child education/plan, symptoms, (unknown) (no (unknown) (unknown) Prilosec. (units (unkn own) date) unknown) (unknown) (no (unknown) (unknown) Primary Care (units (u nknown) date) Provider: unknown) Sadie (unknown) (no (unknown) (unknown) Primary Ob (units (unk nown) date) Provider: unknown) Rabia Gooden (unknown) (no (unknown) (unknown) Prior (units (unkno wn) date) GBS-Infected unknown) child: No (unknown) (no (unknown) (unknown) Providers (units (unkn own) date) unknown) (unknown) (no (unknown) (unknown) Psoriasis (units (unkn own) date) unknown) (unknown) (no (unknown) (unknown) Pt arrives for a (units (unknown) date) post unknown) appointment. Delivered at 33 wks and 6 days. (unknown) (no (unknown) (unknown) Pt did not (units (unk nown) date) complete quad unknown) screen (unknown) (no (unknown) (unknown) Pt has been (units (un known) date) feeling somewhat unknown) winded. No swelling. (unknown) (no (unknown) (unknown) Pt has random (units ( unknown) date) days when she is unknown) sad, but feels it is within reason. (unknown) (no (unknown) (unknown) Pt hasn't been (units (unknown) date) checking BP at unknown) home, but when she did check was 130/80. (unknown) (no (unknown) (unknown) Pt is on 400mg (units (unknown) date) TID currently, unknown) Nifedipine 30mg XR. BPs have been 120-140/70-80s. (unknown) (no (unknown) (unknown) Pt is taking (units (u nknown) date) Tums and unknown) Prilosec, GERD still severe. Discussed BID dosing (unknown) (no (unknown) (unknown) Pt was on (units (unkn own) date) potassium unknown) supplement. (unknown) (no (unknown) (unknown) Pt was transfused (units (unknown) date) 9 units of PRBCs, unknown) plasma, and FFP while in the hospital due to (unknown) (no (unknown) (unknown) Pt with ongoing (units (unknown) date) LE swelling. unknown) Primarily left foot. No pain in (unknown) (no (unknown) (unknown) Pt with (units (unkno wn) date) significant unknown) nausea. Manageable thus far. Declines need for (unknown) (no (unknown) (unknown) Pulse 90 (units (unkno wn) date) unknown) (unknown) (no (unknown) (unknown) Pulse Oximetry (units (unknown) date) (%) 99 unknown) (unknown) (no (unknown) (unknown) Pulse Source (units (u nknown) date) Monitor unknown) (unknown) (no (unknown) (unknown) Quad screen (units (un known) date) ordered today. unknown) Anatomy scheduled. (unknown) (no (unknown) (unknown) RASH AND ITCHING (units (unknown) date) unknown) (unknown) (no (unknown) (unknown) RASH (units (unkno wn) date) unknown) (unknown) (no (unknown) (unknown) ROS (units (unkno wn) date) unknown) (unknown) (no (unknown) (unknown) Rash or viral (units ( unknown) date) illness since unknown) last menstrual period: No (unknown) (no (unknown) (unknown) Rash (units (unkno wn) date) unknown) (unknown) (no (unknown) (unknown) Reason For Visit (units (unknown) date) unknown) (unknown) (no (unknown) (unknown) Recent travel (units ( unknown) date) outside of unknown) country?: No (unknown) (no (unknown) (unknown) Recurrent (units (unkn own) date) loss or unknown) a stillbirth: No (unknown) (no (unknown) (unknown) Reminded to (units (un known) date) complete glucola. unknown) Growth u/s scheduled for later today. (unknown) (no (unknown) (unknown) Reminded to (units (un known) date) complete lab work unknown) (unknown) (no (unknown) (unknown) Repeat BP today (units (unknown) date) 132/86. No unknown) headaches, vision changes, RUQ pain, edema. Request (unknown) (no (unknown) (unknown) Rx Clobetasol to (units (unknown) date) help with unknown) itching. (unknown) (no (unknown) (unknown) Safety (units (unkno wn) date) unknown) (unknown) (no (unknown) (unknown) Salpingectomy (units ( unknown) date) completed. unknown) (unknown) (no (unknown) (unknown) Signed By: (units (unk nown) date) unknown) (unknown) (no (unknown) (unknown) Smoking Status: (units (unknown) date) Never smoker unknown) (unknown) (no (unknown) (unknown) Social History (units (unknown) date) unknown) (unknown) (no (unknown) (unknown) Status post (units (un known) date) appendectomy unknown) () (unknown) (no (unknown) (unknown) Status post (units (un known) date) delivery unknown) (01/06/11) (unknown) (no (unknown) (unknown) Status post (units (un known) date) delivery unknown) (unknown) (no (unknown) (unknown) Status: Chronic (units (unknown) date) unknown) (unknown) (no (unknown) (unknown) Sulfa (units (unkno wn) date) (Sulfonamide unknown) Antibiotics) Allergy (Mild, Verified 09/02/22 15:44) (unknown) (no (unknown) (unknown) Support (units (unkno wn) date) Person(s):: unknown) Lloyd (unknown) (no (unknown) (unknown) Surgery date to (units (unknown) date) be requested for unknown) 09/09/22. Packet sent to dental scheduler. (unknown) (no (unknown) (unknown) Surgical History (units (unknown) date) (Reviewed unknown) 07/30/22 @ 11:31 by Karina Gaytan DO) (unknown) (no (unknown) (unknown) Surrogate (units (unkn own) date) ?: no unknown) (unknown) (no (unknown) (unknown) Symptoms since (units (unknown) date) LMP: Reports unknown) nausea, breast tenderness, urinary frequency, (unknown) (no (unknown) (unknown) Teratogen (units (unkn own) date) Exposures since unknown) LMP/Conception: Denies prescription medications, (unknown) (no (unknown) (unknown) Testing (units (unkno wn) date) Education unknown) (unknown) (no (unknown) (unknown) Testing (units (unkno wn) date) education unknown) completed: Spina bifida testing and Cell Free DNA (unknown) (no (unknown) (unknown) Third Trimester (units (unknown) date) Education unknown) Checklist (unknown) (no (unknown) (unknown) This note may (units ( unknown) date) have been all or unknown) partially generated using voice recognition (unknown) (no (unknown) (unknown) Tobacco + (units (unkn own) date) Substance Use unknown) (unknown) (no (unknown) (unknown) Tobacco Status (units (unknown) date) unknown) (unknown) (no (unknown) (unknown) Type of (units (unkno wn) date) Delivery: repeat unknown) C/S (unknown) (no (unknown) (unknown) Type(s) of (units (unk nown) date) exercise: none unknown) (unknown) (no (unknown) (unknown) UProtein Movement (units (unknown) date) PreLabor FHR Fndl unknown) Ht Pres Edema Cerv Exam US/Comment Next Appt (unknown) (no (unknown) (unknown) Ultrasound (units (unk nown) date) Details:: Dating unknown) u/s 02/10/22 - Single IUP. CRL consistent with 8w1d. (unknown) (no (unknown) (unknown) Ultrasound (units (unk nown) date) unknown) (unknown) (no (unknown) (unknown) Varicella/chicke (units (unknown) date) n pox status: unknown) previous disease (unknown) (no (unknown) (unknown) Visit Date: (units (un known) date) 02/10/22 Last unknown) Updated by: Rabia Gooden MD (unknown) (no (unknown) (unknown) Visit Date: (units (un known) date) 03/16/22 Last unknown) Updated by: Rabia Gooden MD (unknown) (no (unknown) (unknown) Visit Date: (units (un known) date) 04/15/22 Last unknown) Updated by: Rabia Gooden MD (unknown) (no (unknown) (unknown) Visit Date: (units (un known) date) 05/13/22 Last unknown) Updated by: Rabia Gooden MD (unknown) (no (unknown) (unknown) Visit Date: (units (un known) date) 06/17/22 Last unknown) Updated by: Rabia Gooden MD (unknown) (no (unknown) (unknown) Visit Date: (units (un known) date) 07/01/22 Last unknown) Updated by: Rabia Gooden MD (unknown) (no (unknown) (unknown) Visit Date: (units (un known) date) 07/15/22 Last unknown) Updated by: Rabia Gooden MD (unknown) (no (unknown) (unknown) Visit Date: (units (un known) date) 07/29/22 Last unknown) Updated by: Rabia Gooden MD (unknown) (no (unknown) (unknown) Visit Reasons: (units (unknown) date) post C section unknown) f/u (unknown) (no (unknown) (unknown) Vitals (units (unkno wn) date) unknown) (unknown) (no (unknown) (unknown) Vitamin (units (unkno wn) date) K-Infant: Yes unknown) (unknown) (no (unknown) (unknown) Vitamins and (units (u nknown) date) iron, Diet and unknown) weight gain, Fish and mercury intake, Caffeine use, (unknown) (no (unknown) (unknown) WG (units (unkno wn) date) unknown) (unknown) (no (unknown) (unknown) Weight 186 lb (units ( unknown) date) unknown) (unknown) (no (unknown) (unknown) 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 works at (unknown) (no (unknown) (unknown) Yes no 130 27 (units ( unknown) date) absent glucola unknown) ordered 2 (unknown) (no (unknown) (unknown) Yes no 132 28 (units ( unknown) date) absent 2wks unknown) (unknown) (no (unknown) (unknown) Yes no 134 31 (units ( unknown) date) absent 2wks unknown) (unknown) (no (unknown) (unknown) Yes no 140 30 (units ( unknown) date) absent 2wks unknown) (unknown) (no (unknown) (unknown) Yes no 144 21 (units ( unknown) date) abse unknown) (unknown) (no (unknown) (unknown) Yes yes 140 (units (un known) date) absent unknown) (unknown) (no (unknown) (unknown) Zika virus (units (unk nown) date) exposure: No unknown) (unknown) (no (unknown) (unknown) [Rx Confirmed (units ( unknown) date) 09/02/22] unknown) (unknown) (no (unknown) (unknown) alcohol intake: (units (unknown) date) former unknown) (unknown) (no (unknown) (unknown) amoxicillin (units (un known) date) Allergy (Mild, unknown) Verified 09/02/22 15:44) (unknown) (no (unknown) (unknown) anyone in either (units (unknown) date) family with: unknown) (unknown) (no (unknown) (unknown) 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 (units (unk nown) date) unknown) (unknown) (no (unknown) (unknown) azithromycin (units (u nknown) date) Allergy (Mild, unknown) Verified 09/02/22 15:44) (unknown) (no (unknown) (unknown) baby's father (units ( unknown) date) had a child with unknown) defects not listed above and Denies Other (unknown) (no (unknown) (unknown) caffeine: Yes (units ( unknown) date) unknown) (unknown) (no (unknown) (unknown) carbon monox (units (u nknown) date) detector in home: unknown) Yes (unknown) (no (unknown) (unknown) changes. Mild (units ( unknown) date) headaches - unknown) usually relieved quickly, stressed at work. No RUQ (unknown) (no (unknown) (unknown) changes. Mother (units (unknown) date) with unknown) due to severe pre-eclampsia at 23wks. (unknown) (no (unknown) (unknown) chlorhexidine (units ( unknown) date) Adverse Reaction unknown) (Intermediate, Verified 09/02/22 15:44) (unknown) (no (unknown) (unknown) clobetasol 0.05 (units (unknown) date) % topical unknown) ointment 1 applic topical BID #45 grams 07/01/22 [Rx (unknown) (no (unknown) (unknown) consistent with (units (unknown) date) PUPPS, but bile unknown) acids ordered to ensure no cholestasis as well. (unknown) (no (unknown) (unknown) current (units (unkno wn) date) occupational unknown) exposures/hazards : No (unknown) (no (unknown) (unknown) daily servings (units (unknown) date) fruits/ve-1 unknown) (unknown) (no (unknown) (unknown) described, visit (units (unknown) date) schedule unknown) reviewed, ultrasounds policy reviewed, coverage 24 (unknown) (no (unknown) (unknown) discharge) (units (unk nown) date) unknown) (unknown) (no (unknown) (unknown) discussed, (units (unk nown) date) tuberculosis unknown) exposure discussed, CMV discussed, Toxoplasmosis (unknown) (no (unknown) (unknown) disorders, (units (unk nown) date) Denies Cystic unknown) Fibrosis, Denies Mental Retardation/Autis m, Denies (unknown) (no (unknown) (unknown) do you feel safe (units (unknown) date) at home: Yes unknown) (unknown) (no (unknown) (unknown) during the past (units (unknown) date) year weight has: unknown) remained stable (unknown) (no (unknown) (unknown) eclampsia - (units (un known) date) diagnosed 08/04 unknown) at 33w6d. Started Nifedipine 30mg XR. Plan on (unknown) (no (unknown) (unknown) education level: (units (unknown) date) other unknown) (unknown) (no (unknown) (unknown) exposure, (units (unkn own) date) Medication use, unknown) Sauna/hot tub use, Dental care, Travel and Influenza (unknown) (no (unknown) (unknown) feet/calves. (units (u nknown) date) Discussed unknown) elevation, water, decreased salt intake. (unknown) (no (unknown) (unknown) fire (units (unkno wn) date) extinguisher in unknown) home: Yes (unknown) (no (unknown) (unknown) firearms in (units (un known) date) home: No unknown) (unknown) (no (unknown) (unknown) have occurred. (units (unknown) date) If there are any unknown) questions, please contact the Medical Records (unknown) (no (unknown) (unknown) hemorrhage. (units (un known) date) Discharged on unknown) 08/14. (unknown) (no (unknown) (unknown) her Jeaneth (units (unkn own) date) unknown) (unknown) (no (unknown) (unknown) hours a day and (units (unknown) date) participation of unknown) father in care and office visits (unknown) (no (unknown) (unknown) household (units (unkn own) date) members: unknown) significant other and children (unknown) (no (unknown) (unknown) housing: (units (unkno wn) date) apartment unknown) (unknown) (no (unknown) (unknown) hyperemesis 1st (units (unknown) date) trimester unknown) (unknown) (no (unknown) (unknown) irritability, (units ( unknown) date) bloating and unknown) other (unknown) (no (unknown) (unknown) labetalol 100 mg (units (unknown) date) tablet 400 mg PO unknown) BID #360 tabs 08/04/22 [Rx Confirmed 09/02/22] (unknown) (no (unknown) (unknown) labs today (units (unk nown) date) unknown) (unknown) (no (unknown) (unknown) labs (units (unkno wn) date) unknown) (unknown) (no (unknown) (unknown) latex Adverse (units ( unknown) date) Reaction (Mild, unknown) Verified 09/02/22 15:44) (unknown) (no (unknown) (unknown) lives (units (unkno wn) date) independently: unknown) Yes (unknown) (no (unknown) (unknown) marital status: (units (unknown) date) unmarried,living unknown) together (unknown) (no (unknown) (unknown) may occur. (units (unk nown) date) Occasional unknown) wrong-word or 'sound-alike' substitutions may have (unknown) (no (unknown) (unknown) medication (units (unk nown) date) 110/90 was the unknown) highest, usually diastolic in the 80s. No vision (unknown) (no (unknown) (unknown) mester if well (units (unknown) date) controlled (2nd unknown) trimester normal). Started baby aspirin at 12 (unknown) (no (unknown) (unknown) nifedipine 30 mg (units (unknown) date) tablet,extended unknown) release 24 hr 30 mg PO DAILY #30 tabs 08/04/22 (unknown) (no (unknown) (unknown) nt (units (unkno wn) date) unknown) (unknown) (no (unknown) (unknown) number of (units (unkn own) date) children: 2 unknown) (unknown) (no (unknown) (unknown) occupational (units (u nknown) date) status: employed unknown) (unknown) (no (unknown) (unknown) occurred due to (units (unknown) date) the inherent unknown) limitations of voice recognition software. Please (unknown) (no (unknown) (unknown) other Camron (units (un known) date) unknown) (unknown) (no (unknown) (unknown) pain. Pt will (units ( unknown) date) complete 24hr unknown) protein this week. (unknown) (no (unknown) (unknown) pets and (units (unkno wn) date) animals: Yes (1 unknown) cat (pt is not managing litter box)) (unknown) (no (unknown) (unknown) precautions, (units (u nknown) date) Listeriosis unknown) prevention and Rubella Immunization (unknown) (no (unknown) (unknown) prenat.vits,miguel, (units (unknown) date) [id number] 1 unknown) tab PO DAILY 01/27/22 [History Confirmed (unknown) (no (unknown) (unknown) production - (units (u nknown) date) total 50mL when unknown) pumping. Pumping every 3 hours. He is feeding 50 (unknown) (no (unknown) (unknown) pt check her BPs (units (unknown) date) at home daily and unknown) bring log to next appt. (unknown) (no (unknown) (unknown) read the note (units ( unknown) date) carefully and unknown) recognize, using context, where these substitutions (unknown) (no (unknown) (unknown) records (units (unkno wn) date) unknown) (unknown) (no (unknown) (unknown) seatbelt use: (units ( unknown) date) always unknown) (unknown) (no (unknown) (unknown) second hand (units (un known) date) exposure: No unknown) (unknown) (no (unknown) (unknown) seeing spots (units (u nknown) date) primarily later unknown) in the day. Increase Labetalol to 300mg BID. (unknown) (no (unknown) (unknown) software. (units (unkn own) date) Although every unknown) effort is made to edit content, white sidewall tire buffer errors (unknown) (no (unknown) (unknown) soon. (units (unkno wn) date) unknown) (unknown) (no (unknown) (unknown) special fly (units ( unknown) date) needs: No unknown) (unknown) (no (unknown) (unknown) stress (units (unkno wn) date) incontinence unknown) (unknown) (no (unknown) (unknown) substance use (units ( unknown) date) type: marijuana unknown) (unknown) (no (unknown) (unknown) to Labetalol (units (u nknown) date) with . unknown) BP quite elevated today. Increase to 200mg daily (unknown) (no (unknown) (unknown) today. Acutely (units (unknown) date) worse today. BPs unknown) at home have been 120/70-80s. - Will obtain (unknown) (no (unknown) (unknown) today. Baseline (units (unknown) date) pre-eclampsia unknown) labs ordered. (unknown) (no (unknown) (unknown) vaccine (units (unkno wn) date) unknown) (unknown) (no (unknown) (unknown) water heater (units (u nknown) date) temp set < 120 unknown) deg: Yes (Will check and adjust if needed) (unknown) (no (unknown) (unknown) weekly labs. (units (u nknown) date) testing unknown) still. Delivery at 37wks (requested 08/26/22) (unknown) (no (unknown) (unknown) weeks. NSTs (units (un known) date) starting at unknown) 32wks. Serial growth ultrasounds (last 08/04). Pre (unknown) (no (unknown) (unknown) well-balanced (units ( unknown) date) diet: about half unknown) the time (unknown) (no (unknown) (unknown) wks (units (unkno wn) date) unknown) (unknown) (no (unknown) (unknown) working on (units (unk nown) date) cutting down salt unknown) intake. (unknown) (no (unknown) (unknown) working smoke (units ( unknown) date) detector in home: unknown) Yes Result panel 27 (unknown) (no (unknown) (unknown) (no value) (units (unk nown) date) unknown) (unknown) (no (unknown) (unknown) (+0 oz) 146/80 (units (unknown) date) unknown) (unknown) (no (unknown) (unknown) (+10 lb) 120/82 (units (unknown) date) unknown) (unknown) (no (unknown) (unknown) (+10 lb) 140/86 (units (unknown) date) unknown) (unknown) (no (unknown) (unknown) (+10 lb) 140/90 (units (unknown) date) unknown) (unknown) (no (unknown) (unknown) (+3 lb) 160/116 (units (unknown) date) unknown) (unknown) (no (unknown) (unknown) (+4 oz) 126/70 (units (unknown) date) unknown) (unknown) (no (unknown) (unknown) (+6 lb) 134/84 (units (unknown) date) unknown) (unknown) (no (unknown) (unknown) (+9 lb) 136/90 (units (unknown) date) unknown) (unknown) (no (unknown) (unknown) (-12 lb) 140/84 (units (unknown) date) unknown) (unknown) (no (unknown) (unknown) (1) Essential (units ( unknown) date) hypertension: unknown) (unknown) (no (unknown) (unknown) Genetic (units (unkn own) date) Screening/Teratol unknown) ogy Counseling - Includes patient, baby's father, or (unknown) (no (unknown) (unknown) -?-?-?-?-?-?-?-? (units (unknown) date) -?-?-?-? unknown) (unknown) (no (unknown) (unknown) [id number] (units (unkno wn) date) unknown) (unknown) (no (unknown) (unknown) 09/02/22 (units (unkno wn) date) unknown) (unknown) (no (unknown) (unknown) 09/02/22] (units (unkn own) date) unknown) (unknown) (no (unknown) (unknown) 12/10/14 39 8 lb (units (unknown) date) 3 oz Female unknown) live - full term (unknown) (no (unknown) (unknown) 01/06/11 41 1 9 (units (unknown) date) lb 1 oz Male unknown) live - full term (unknown) (no (unknown) (unknown) 02/10/22 (units (unkno wn) date) unknown) (unknown) (no (unknown) (unknown) 03/16/22 (units (unkno wn) date) unknown) (unknown) (no (unknown) (unknown) 04/15/22 (units (unkno wn) date) unknown) (unknown) (no (unknown) (unknown) 05/13/22 (units (unkno wn) date) unknown) (unknown) (no (unknown) (unknown) 06/17/22 (units (unkno wn) date) unknown) (unknown) (no (unknown) (unknown) 07/01/22 (units (unkno wn) date) unknown) (unknown) (no (unknown) (unknown) 07/15/22 (units (unkno wn) date) unknown) (unknown) (no (unknown) (unknown) 07/29/22 (units (unkno wn) date) unknown) (unknown) (no (unknown) (unknown) 13w 5d 198 lb 4 (units (unknown) date) oz unknown) (unknown) (no (unknown) (unknown) 152/116 (units (unkno wn) date) unknown) (unknown) (no (unknown) (unknown) 15:44 (units (unkno wn) date) unknown) (unknown) (no (unknown) (unknown) 18w 0d 198 lb (units ( unknown) date) unknown) (unknown) (no (unknown) (unknown) 2+ 4wks (units (unkno wn) date) unknown) (unknown) (no (unknown) (unknown) 22w 0d 204 lb (units ( unknown) date) unknown) (unknown) (no (unknown) (unknown) 27w 0d 207 lb (units ( unknown) date) unknown) (unknown) (no (unknown) (unknown) 29w 0d 208 lb (units ( unknown) date) unknown) (unknown) (no (unknown) (unknown) 31w 0d 208 lb (units ( unknown) date) unknown) (unknown) (no (unknown) (unknown) 33w 0d 208 lb (units ( unknown) date) unknown) (unknown) (no (unknown) (unknown) 38w 0d 186 lb (units ( unknown) date) unknown) (unknown) (no (unknown) (unknown) 4wks (units (unkno wn) date) unknown) (unknown) (no (unknown) (unknown) 02/10, 300mg BID (units (unknown) date) 06/17. Baseline unknown) pre-eclampsia labs ordered. Will need qtri (unknown) (no (unknown) (unknown) 70mL/feed. (units (unk nown) date) unknown) (unknown) (no (unknown) (unknown) 8w 6d 201 lb (units (u nknown) date) unknown) (unknown) (no (unknown) (unknown) Abdomen with a (units (unknown) date) very itchy rash. unknown) Nothing on her hands and feet. Most (unknown) (no (unknown) (unknown) Abnormal lab (units (u nknown) date) values 1st unknown) trimester: discussed (unknown) (no (unknown) (unknown) Abnormal lab (units (u nknown) date) values 3rd unknown) trimester: discussed (unknown) (no (unknown) (unknown) Accompanied by: (units (unknown) date) Self / Same As unknown) Patient (unknown) (no (unknown) (unknown) Add'l Plan (units (unk nown) date) Details unknown) (unknown) (no (unknown) (unknown) Age/Sex: 32 / F (units (unknown) date) Date of Service: unknown) (unknown) (no (unknown) (unknown) Allergies (units (unkn own) date) unknown) (unknown) (no (unknown) (unknown) [facility] (units (unknown) date) Medicine unknown) (unknown) (no (unknown) (unknown) [place], [place] (units ( unknown) date) [id number] unknown) (unknown) (no (unknown) (unknown) Anatomy scan (units (u nknown) date) normal, 88th unknown) percentile (unknown) (no (unknown) (unknown) Anatomy u/s (units (un known) date) ordered unknown) (unknown) (no (unknown) (unknown) Anesthesia (units (unk nown) date) preference: Other unknown) (spinal for c/s) (unknown) (no (unknown) (unknown) Anesthesia/Analg (units (unknown) date) esia plans: unknown) discussed (unknown) (no (unknown) (unknown) Aneuploidy (units (unk nown) date) Screening unknown) Offered: Accepted (unknown) (no (unknown) (unknown) Antibiotic Eye (units (unknown) date) Drops-: Yes unknown) (unknown) (no (unknown) (unknown) Anticipated (units (un known) date) course of unknown) care: discussed (unknown) (no (unknown) (unknown) Assessment and (units (unknown) date) Plan unknown) (unknown) (no (unknown) (unknown) Asymptomatic. (units ( unknown) date) Vision changes unknown) improved with iron supplement. (unknown) (no (unknown) (unknown) Attending Dr: (units ( unknown) date) Rabia Gooden MD unknown) (unknown) (no (unknown) (unknown) BP 140/84 (units (unkn own) date) unknown) (unknown) (no (unknown) (unknown) BP checks (units (unkn own) date) unknown) (unknown) (no (unknown) (unknown) BPs at home (units (un known) date) diastolic 90-93, unknown) systolic in 130s. No headaches. Pt is (unknown) (no (unknown) (unknown) BPs at home have (units (unknown) date) been 130/80-90s. unknown) Increase Labetalol to 400mg BID. (unknown) (no (unknown) (unknown) BPs at home have (units (unknown) date) been in normal unknown) range. (unknown) (no (unknown) (unknown) BPs have been (units ( unknown) date) consistently in unknown) good range, 110s/60s in general. (unknown) (no (unknown) (unknown) Baby came home (units (unknown) date) 08/26/22. unknown) (unknown) (no (unknown) (unknown) (units (unkno wn) date) Plan/Preferences unknown) (unknown) (no (unknown) (unknown) Planning (units (unknown) date) unknown) (unknown) (no (unknown) (unknown) Bladder: Reports (units (unknown) date) emptying; Denies unknown) pain with urination, urge incontinence or (unknown) (no (unknown) (unknown) Bleeding: Yes (units ( unknown) date) (clotting unknown) ping-pong ball size on 08/30, now just orange-brown (unknown) (no (unknown) (unknown) Blister (units (unkno wn) date) unknown) (unknown) (no (unknown) (unknown) Blood Pressure (units (unknown) date) Location Lt unknown) brachial (unknown) (no (unknown) (unknown) Blood (units (unkno wn) date) transfusions?: unknown) yes (unknown) (no (unknown) (unknown) Blues/Depression (units (unknown) date) /Anxiety: Yes unknown) (unknown) (no (unknown) (unknown) Bowel: Reports (units (unknown) date) daily and stool unknown) soft; Denies constipation or stool hard (unknown) (no (unknown) (unknown) Breastfeed Preg (units (unknown) date) Comp Name unknown) (unknown) (no (unknown) (unknown) Checking BPs at (units (unknown) date) home - before unknown) medication BPs usually 140s/80s. After (unknown) (no (unknown) (unknown) Chronic HTN - (units ( unknown) date) Switched to unknown) Labetalol with . Increased to 200mg BID (unknown) (no (unknown) (unknown) Chronic HTN (units (un known) date) started January unknown) 2020, on Lisinopril. Added Carvedilol. Switched (unknown) (no (unknown) (unknown) Chronic cough (units ( unknown) date) () unknown) (unknown) (no (unknown) (unknown) Complete Blood (units (unknown) date) Count AUTO DIFF 1 unknown) Month I10 - Essential (primary) hypertension, (unknown) (no (unknown) (unknown) Comprehensive (units ( unknown) date) Metabolic Panel 1 unknown) Month I10 - Essential (primary) hypertension, (unknown) (no (unknown) (unknown) Confirmed (units (unkn own) date) 09/02/22] unknown) (unknown) (no (unknown) (unknown) Current Estimate (units (unknown) date) 09/16/22 LMP unknown) (Certain) 38w 0d (unknown) (no (unknown) (unknown) Current (units (unkno wn) date) History unknown) (unknown) (no (unknown) (unknown) : 1990 (units (unknown) date) Acct:[id number] unknown) (unknown) (no (unknown) (unknown) Date of positive (units (unknown) date) home unknown) test: 12/30/21 (unknown) (no (unknown) (unknown) Date (units (unkno wn) date) unknown) (unknown) (no (unknown) (unknown) Dating u/s (units (unk nown) date) concordant with unknown) LMP, keep CLAU 09/16/22. (unknown) (no (unknown) (unknown) Del. Date (units (unkn own) date) GA/Weeks Labor unknown) Lgth Wt Sex Route Outcome Anesthesia Place (unknown) (no (unknown) (unknown) Delayed cord (units (u nknown) date) clamping: Yes unknown) (unknown) (no (unknown) (unknown) Delivery Date: (units (unknown) date) 12/10/14 Last unknown) Updated by: Bianca Arenas R.N. (unknown) (no (unknown) (unknown) Delivery Date: (units (unknown) date) 01/06/11 Last unknown) Updated by: Bianca Arenas R.N. (unknown) (no (unknown) (unknown) Delivery Date: (units (unknown) date) 08/07/22 unknown) (unknown) (no (unknown) (unknown) Delv (units (unkno wn) date) unknown) (unknown) (no (unknown) (unknown) Denies Congenital (units (unknown) date) Heart Defect, unknown) Denies Down Syndrome, Denies Muscular Dystrophy, (unknown) (no (unknown) (unknown) Denies Maternal (units (unknown) date) Metabolic unknown) Disorder (EG,TYPE 1 Diabetes, PKU), Denies Patient or (unknown) (no (unknown) (unknown) Denies Neural (units ( unknown) date) Tube Defect unknown) (Meningomyelocele , Spina Bifida, or Anencephaly), (unknown) (no (unknown) (unknown) Denies Sickle (units ( unknown) date) Cell Disease or unknown) Trait (), Denies Hemophilia or other blood (unknown) (no (unknown) (unknown) Denies Willie-Sachs (units (unknown) date) (Ashkenazi unknown) Yarsani, Cajun, [place] Romanian), Denies Fred (unknown) (no (unknown) (unknown) Denies other (units (u nknown) date) unknown) (unknown) (no (unknown) (unknown) Denies over the (units (unknown) date) counter unknown) medications, Denies alcohol, Denies illicit drugs and (unknown) (no (unknown) (unknown) Depression (units (unk nown) date) unknown) (unknown) (no (unknown) (unknown) Depression: (units (un known) date) discussed unknown) (unknown) (no (unknown) (unknown) Dept at (units (unkno wn) date) . unknown) (unknown) (no (unknown) (unknown) Desires quad (units (u nknown) date) screen for unknown) genetic testing. (unknown) (no (unknown) (unknown) Diet and (units (unkno wn) date) Exercise unknown) (unknown) (no (unknown) (unknown) Disease (units (unkno wn) date) (Ashkenazi unknown) Yarsani), Denies Familial Dysautonomia (Ashkenazi Yarsani), (unknown) (no (unknown) (unknown) Documented By: (units (unknown) date) Rabia Gooden MD unknown) 09/02/22 1301 (unknown) (no (unknown) (unknown) Draft (units (unkno wn) date) unknown) (unknown) (no (unknown) (unknown) CLAU Calculator (units (unknown) date) unknown) (unknown) (no (unknown) (unknown) EGA Weight BP (units ( unknown) date) UGlucose unknown) (unknown) (no (unknown) (unknown) Estimated (units (unkn own) date) Delivery Date unknown) Method Current (unknown) (no (unknown) (unknown) Exercise and (units (u nknown) date) activity, unknown) work/environmenta l/hazards, Sexual activity, X-ray (unknown) (no (unknown) (unknown) F/U in 2 weeks (units (unknown) date) unknown) (unknown) (no (unknown) (unknown) FHT 167. Normal (units (unknown) date) adnexa and unknown) ovaries. (unknown) (no (unknown) (unknown) Failed glucola, (units (unknown) date) 3hr GTT needs to unknown) be scheduled, will schedule today. (unknown) (no (unknown) (unknown) Family History (units (unknown) date) (Reviewed unknown) 07/30/22 @ 11:31 by Karina Lucila, DO) (unknown) (no (unknown) (unknown) Father of Baby: (units (unknown) date) same unknown) (unknown) (no (unknown) (unknown) Feeding: breast (units (unknown) date) unknown) (unknown) (no (unknown) (unknown) movement (units (unknown) date) monitoring: unknown) discussed (unknown) (no (unknown) (unknown) First Trimester (units (unknown) date) Education unknown) Checklist (unknown) (no (unknown) (unknown) GERD getting (units (u nknown) date) worse. Tums unknown) doesn't help. - Discussed Pepcid (unknown) (no (unknown) (unknown) Genetic (units (unkno wn) date) Screening + unknown) Counseling (unknown) (no (unknown) (unknown) Genetic (units (unkno wn) date) Screening unknown) (unknown) (no (unknown) (unknown) Glucola competed (units (unknown) date) 07/14 at [facility] unknown) - records requested (unknown) (no (unknown) (unknown) Glucola ordered (units (unknown) date) unknown) (unknown) (no (unknown) (unknown) Grandfather (units (un known) date) Hypertension unknown) (unknown) (no (unknown) (unknown) Grandmother Type (units (unknown) date) 2 diabetes unknown) mellitus (unknown) (no (unknown) (unknown) 3 (units (unkn own) date) Multiple births unknown) (unknown) (no (unknown) (unknown) : 3 (units (unk nown) date) unknown) (unknown) (no (unknown) (unknown) Growth u/s (units (unk nown) date) scheduled 08/10. unknown) (unknown) (no (unknown) (unknown) Growth (units (unkno wn) date) ultrasound unknown) ordered today (unknown) (no (unknown) (unknown) HIV risk (units (unkno wn) date) evaluation: low unknown) risk (unknown) (no (unknown) (unknown) Health Center (units ( unknown) date) Education unknown) (unknown) (no (unknown) (unknown) Health center (units ( unknown) date) information: unknown) nature of practice discussed, personnel (unknown) (no (unknown) (unknown) Hep B-: (units ( unknown) date) Yes unknown) (unknown) (no (unknown) (unknown) Hepatitis C risk (units (unknown) date) evaluation: low unknown) risk (unknown) (no (unknown) (unknown) High risk (units (unkn own) date) type/reason(s): unknown) chronic HTN (unknown) (no (unknown) (unknown) History of (units (unk nown) date) Hepatitis B: No unknown) (unknown) (no (unknown) (unknown) History of (units (unk nown) date) Hepatitis C: No unknown) (unknown) (no (unknown) (unknown) History/Interim (units (unknown) date) Details unknown) (unknown) (no (unknown) (unknown) [facility] (units (u nknown) [facility]) (unknown) (no (unknown) (unknown) [facility] (units (u nknown) date) Chorea, Denies unknown) Other inherited genetic or chromosomal disorder, (unknown) (no (unknown) (unknown) Hx # (units (u nknown) date) Pregnancies unknown) Elective abortions (unknown) (no (unknown) (unknown) Hx # Term (units (unkn own) date) Pregnancies 2 unknown) Ectopic pregnancies (unknown) (no (unknown) (unknown) Hx of prior (units (un known) date) unknown) (unknown) (no (unknown) (unknown) Hypertension (units (u nknown) date) unknown) (unknown) (no (unknown) (unknown) [facility] 3 months ot (units (unknown) date) unknown) (unknown) (no (unknown) (unknown) [facility] attempted (units (u nknown) date) unknown) (unknown) (no (unknown) (unknown) ITCHING (units (unkno wn) date) unknown) (unknown) (no (unknown) (unknown) Increased foot (units (unknown) date) swelling. No unknown) headaches, vision changes, RUQ pain. (unknown) (no (unknown) (unknown) (units (u nknown) date) Weight: 5 lbs unknown) 7.6oz (unknown) (no (unknown) (unknown) Infant Longest (units (unknown) date) Sleep: 4 unknown) (unknown) (no (unknown) (unknown) will be (units (unknown) date) adopted?: no unknown) (unknown) (no (unknown) (unknown) Infant's Sex: (units ( unknown) date) Male unknown) (unknown) (no (unknown) (unknown) Infection (units (unkn own) date) History unknown) (unknown) (no (unknown) (unknown) Infectious (units (unk nown) date) Disease Education unknown) (unknown) (no (unknown) (unknown) Infectious (units (unk nown) date) disease exposure: unknown) chicken pox immunity discussed, hepatitis risk (unknown) (no (unknown) (unknown) Initial Weight: (units (unknown) date) 198 lb unknown) (unknown) (no (unknown) (unknown) Initials (units (unkno wn) date) unknown) (unknown) (no (unknown) (unknown) Intake Note: (units (u nknown) date) unknown) (unknown) (no (unknown) (unknown) Intake (units (unkno wn) date) unknown) (unknown) (no (unknown) (unknown) Arma: (units (u nknown) date) Reports not unknown) resumed (unknown) (no (unknown) (unknown) Interim (units ( unknown) date) control method: unknown) Reports permanent sterilization (unknown) (no (unknown) (unknown) FELICITY (units (unkno wn) date) unknown) (unknown) (no (unknown) (unknown) Left breast (units (un known) date) producing little, unknown) 10mL when pumping. Right side with more (unknown) (no (unknown) (unknown) Legs have been (units (unknown) date) swelling unknown) slightly. She is wearing compression socks, (unknown) (no (unknown) (unknown) Live with (units (unkn own) date) someone with TB unknown) or exposed to TB: No (unknown) (no (unknown) (unknown) Loc: [facility] (units (unkno wn) date) unknown) (unknown) (no (unknown) (unknown) Marital status: (units (unknown) date) unmarried,living unknown) together (unknown) (no (unknown) (unknown) Medical History (units (unknown) date) (Reviewed unknown) 07/30/22 @ 11:31 by Karina Gaytan DO) (unknown) (no (unknown) (unknown) Medications (units (un known) date) unknown) (unknown) (no (unknown) (unknown) Mild (units (unkno wn) date) intermittent unknown) headaches. Can tell when BP is higher due to vision (unknown) (no (unknown) (unknown) Mother Age: 51 (units (unknown) date) Stroke unknown) (unknown) (no (unknown) (unknown) NSTs have (units (unkn own) date) started, unknown) reassuring thus far. (unknown) (no (unknown) (unknown) NSTs to start (units ( unknown) date) next week. Growth unknown) scan ordered. (unknown) (no (unknown) (unknown) Nausea is (units (unkn own) date) improved, unknown) tolerable now. (unknown) (no (unknown) (unknown) No no 150 absent (units (unknown) date) anatomy ordered unknown) 4wks (unknown) (no (unknown) (unknown) No no 167 absent (units (unknown) date) dating u/s 4wks unknown) (unknown) (no (unknown) (unknown) Notes (units (unkno wn) date) unknown) (unknown) (no (unknown) (unknown) Number of Living (units (unknown) date) Children 2 unknown) (unknown) (no (unknown) (unknown) Number of Weeks (units (unknown) date) Post : 4 unknown) (unknown) (no (unknown) (unknown) Number of (units (unkn own) date) fetuses:: Single unknown) (unknown) (no (unknown) (unknown) Nutrition and (units ( unknown) date) weight gain unknown) counseling: special diet: discussed (unknown) (no (unknown) (unknown) O14.90 - (units (unkno wn) date) Unspecified unknown) pre-eclampsia, unspecified trimester (unknown) (no (unknown) (unknown) OB Office Visit (units (unknown) date) unknown) (unknown) (no (unknown) (unknown) OB Visit Log (units (u nknown) date) unknown) (unknown) (no (unknown) (unknown) On control (units (unknown) date) at conception?: unknown) Yes (OCP, stopped on learning of ) (unknown) (no (unknown) (unknown) Orders (units (unkno wn) date) unknown) (unknown) (no (unknown) (unknown) Orders: (units (unkno wn) date) unknown) (unknown) (no (unknown) (unknown) Oxygen Delivery (units (unknown) date) Method room air unknown) (unknown) (no (unknown) (unknown) PFSH (units (unkno wn) date) unknown) (unknown) (no (unknown) (unknown) 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 (unknown) (no (unknown) (unknown) PUPP (pruritic (units (unknown) date) urticarial unknown) papules and plaques of ) (unknown) (no (unknown) (unknown) PUPPPS rash (units (un known) date) unknown) (unknown) (no (unknown) (unknown) Pain Control: (units ( unknown) date) Reports unknown) Uncontrolled (unknown) (no (unknown) (unknown) Pain to the (units (un known) date) right side of her unknown) incision. (unknown) (no (unknown) (unknown) Para 3 (units (unkno wn) date) Spontaneous unknown) abortions (unknown) (no (unknown) (unknown) Para: 3 (units (unkno wn) date) unknown) (unknown) (no (unknown) (unknown) Partner history (units (unknown) date) of STD: denies hx unknown) (unknown) (no (unknown) (unknown) Partner history (units (unknown) date) of genital unknown) herpes: No (unknown) (no (unknown) (unknown) Partner: Lloyd (units (unknown) date) [place] unknown) (unknown) (no (unknown) (unknown) Past Pregnancies (units (unknown) date) unknown) (unknown) (no (unknown) (unknown) Patient's age 35 (units (unknown) date) years or older as unknown) of estimated date of delivery: No (unknown) (no (unknown) (unknown) Patient: (units (unkno wn) date) Ga Hagan L unknown) MR#: [id number] (unknown) (no (unknown) (unknown) 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 Will be unknown) starting job at [employer] (unknown) (no (unknown) (unknown) Plan to obtain (units (unknown) date) baseline labs at unknown) next appt. Pt with increasing swelling (unknown) (no (unknown) (unknown) Plan (units (unkno wn) date) unknown) (unknown) (no (unknown) (unknown) Plantar (units (unkno wn) date) fasciitis (-2016) unknown) (unknown) (no (unknown) (unknown) Position Sitting (units (unknown) date) unknown) (unknown) (no (unknown) (unknown) Post (units (un known) date) unknown) (unknown) (no (unknown) (unknown) (units (unkn own) date) Complications: unknown) hypertension (unknown) (no (unknown) (unknown) (units (unkn own) date) History unknown) (unknown) (no (unknown) (unknown) type:: (units (unknown) date) High Risk Other unknown) (unknown) (no (unknown) (unknown) (units (unkno wn) date) Education unknown) (unknown) (no (unknown) (unknown) Initial (units (unknown) date) Assessment unknown) (unknown) (no (unknown) (unknown) (units (unkno wn) date) Specific unknown) Issues/Plans (unknown) (no (unknown) (unknown) (units (unkno wn) date) Testing: unknown) discussed (unknown) (no (unknown) (unknown) Visit (units (unknown) date) unknown) (unknown) (no (unknown) (unknown) (units (unkno wn) date) education packet: unknown) Child education/plan, symptoms, (unknown) (no (unknown) (unknown) Prilosec. (units (unkn own) date) unknown) (unknown) (no (unknown) (unknown) Primary Care (units (u nknown) date) Provider: unknown) Sadie (unknown) (no (unknown) (unknown) Primary Ob (units (unk nown) date) Provider: unknown) Rabia Gooden (unknown) (no (unknown) (unknown) Prior (units (unkno wn) date) GBS-Infected unknown) child: No (unknown) (no (unknown) (unknown) Prolactin 1 (units (un known) date) Month O72.1 - unknown) Other immediate hemorrhage (unknown) (no (unknown) (unknown) Providers (units (unkn own) date) unknown) (unknown) (no (unknown) (unknown) Psoriasis (units (unkn own) date) unknown) (unknown) (no (unknown) (unknown) Pt arrives for a (units (unknown) date) post unknown) appointment. Delivered at 33 wks and 6 days. (unknown) (no (unknown) (unknown) Pt did not (units (unk nown) date) complete quad unknown) screen (unknown) (no (unknown) (unknown) Pt has been (units (un known) date) feeling somewhat unknown) winded. No swelling. (unknown) (no (unknown) (unknown) Pt has random (units ( unknown) date) days when she is unknown) sad, but feels it is within reason. (unknown) (no (unknown) (unknown) Pt hasn't been (units (unknown) date) checking BP at unknown) home, but when she did check was 130/80. (unknown) (no (unknown) (unknown) Pt is on 400mg (units (unknown) date) TID currently, unknown) Nifedipine 30mg XR. BPs have been 120-140/70-80s. (unknown) (no (unknown) (unknown) Pt is taking (units (u nknown) date) Tums and unknown) Prilosec, GERD still severe. Discussed BID dosing (unknown) (no (unknown) (unknown) Pt was on (units (unkn own) date) potassium unknown) supplement. (unknown) (no (unknown) (unknown) Pt was transfused (units (unknown) date) 9 units of PRBCs, unknown) plasma, and FFP while in the hospital due to (unknown) (no (unknown) (unknown) Pt with ongoing (units (unknown) date) LE swelling. unknown) Primarily left foot. No pain in (unknown) (no (unknown) (unknown) Pt with (units (unkno wn) date) significant unknown) nausea. Manageable thus far. Declines need for (unknown) (no (unknown) (unknown) Pulse 90 (units (unkno wn) date) unknown) (unknown) (no (unknown) (unknown) Pulse Oximetry (units (unknown) date) (%) 99 unknown) (unknown) (no (unknown) (unknown) Pulse Source (units (u nknown) date) Monitor unknown) (unknown) (no (unknown) (unknown) Quad screen (units (un known) date) ordered today. unknown) Anatomy scheduled. (unknown) (no (unknown) (unknown) RASH AND ITCHING (units (unknown) date) unknown) (unknown) (no (unknown) (unknown) RASH (units (unkno wn) date) unknown) (unknown) (no (unknown) (unknown) ROS (units (unkno wn) date) unknown) (unknown) (no (unknown) (unknown) Rash or viral (units ( unknown) date) illness since unknown) last menstrual period: No (unknown) (no (unknown) (unknown) Rash (units (unkno wn) date) unknown) (unknown) (no (unknown) (unknown) Reason For Visit (units (unknown) date) unknown) (unknown) (no (unknown) (unknown) Recent travel (units ( unknown) date) outside of unknown) country?: No (unknown) (no (unknown) (unknown) Recurrent (units (unkn own) date) loss or unknown) a stillbirth: No (unknown) (no (unknown) (unknown) Reminded to (units (un known) date) complete glucola. unknown) Growth u/s scheduled for later today. (unknown) (no (unknown) (unknown) Reminded to (units (un known) date) complete lab work unknown) (unknown) (no (unknown) (unknown) Repeat BP today (units (unknown) date) 132/86. No unknown) headaches, vision changes, RUQ pain, edema. Request (unknown) (no (unknown) (unknown) Rx Clobetasol to (units (unknown) date) help with unknown) itching. (unknown) (no (unknown) (unknown) Safety (units (unkno wn) date) unknown) (unknown) (no (unknown) (unknown) Salpingectomy (units ( unknown) date) completed. unknown) (unknown) (no (unknown) (unknown) Signed By: (units (unk nown) date) unknown) (unknown) (no (unknown) (unknown) Smoking Status: (units (unknown) date) Never smoker unknown) (unknown) (no (unknown) (unknown) Social History (units (unknown) date) unknown) (unknown) (no (unknown) (unknown) Status post (units (un known) date) appendectomy unknown) () (unknown) (no (unknown) (unknown) Status post (units (un known) date) delivery unknown) (01/06/11) (unknown) (no (unknown) (unknown) Status post (units (un known) date) delivery unknown) (unknown) (no (unknown) (unknown) Status: Chronic (units (unknown) date) unknown) (unknown) (no (unknown) (unknown) Sulfa (units (unkno wn) date) (Sulfonamide unknown) Antibiotics) Allergy (Mild, Verified 09/02/22 15:44) (unknown) (no (unknown) (unknown) Support (units (unkno wn) date) Person(s):: unknown) Lloyd (unknown) (no (unknown) (unknown) Surgery date to (units (unknown) date) be requested for unknown) 09/09/22. Packet sent to dental scheduler. (unknown) (no (unknown) (unknown) Surgical History (units (unknown) date) (Reviewed unknown) 07/30/22 @ 11:31 by Karina Gaytan DO) (unknown) (no (unknown) (unknown) Surrogate (units (unkn own) date) ?: no unknown) (unknown) (no (unknown) (unknown) Symptoms since (units (unknown) date) LMP: Reports unknown) nausea, breast tenderness, urinary frequency, (unknown) (no (unknown) (unknown) Teratogen (units (unkn own) date) Exposures since unknown) LMP/Conception: Denies prescription medications, (unknown) (no (unknown) (unknown) Testing (units (unkno wn) date) Education unknown) (unknown) (no (unknown) (unknown) Testing (units (unkno wn) date) education unknown) completed: Spina bifida testing and Cell Free DNA (unknown) (no (unknown) (unknown) Third Trimester (units (unknown) date) Education unknown) Checklist (unknown) (no (unknown) (unknown) This note may (units ( unknown) date) have been all or unknown) partially generated using voice recognition (unknown) (no (unknown) (unknown) Tobacco + (units (unkn own) date) Substance Use unknown) (unknown) (no (unknown) (unknown) Tobacco Status (units (unknown) date) unknown) (unknown) (no (unknown) (unknown) Type of (units (unkno wn) date) Delivery: repeat unknown) C/S (unknown) (no (unknown) (unknown) Type(s) of (units (unk nown) date) exercise: none unknown) (unknown) (no (unknown) (unknown) UProtein Movement (units (unknown) date) PreLabor FHR Fndl unknown) Ht Pres Edema Cerv Exam US/Comment Next Appt (unknown) (no (unknown) (unknown) Ultrasound (units (unk nown) date) Details:: Dating unknown) u/s 02/10/22 - Single IUP. CRL consistent with 8w1d. (unknown) (no (unknown) (unknown) Ultrasound (units (unk nown) date) unknown) (unknown) (no (unknown) (unknown) Varicella/chicke (units (unknown) date) n pox status: unknown) previous disease (unknown) (no (unknown) (unknown) Visit Date: (units (un known) date) 02/10/22 Last unknown) Updated by: Rabia Gooden MD (unknown) (no (unknown) (unknown) Visit Date: (units (un known) date) 03/16/22 Last unknown) Updated by: Rabia Gooden MD (unknown) (no (unknown) (unknown) Visit Date: (units (un known) date) 04/15/22 Last unknown) Updated by: Rabia Gooden MD (unknown) (no (unknown) (unknown) Visit Date: (units (un known) date) 05/13/22 Last unknown) Updated by: Rabia Gooden MD (unknown) (no (unknown) (unknown) Visit Date: (units (un known) date) 06/17/22 Last unknown) Updated by: Rabia Gooden MD (unknown) (no (unknown) (unknown) Visit Date: (units (un known) date) 07/01/22 Last unknown) Updated by: Rabia Gooden MD (unknown) (no (unknown) (unknown) Visit Date: (units (un known) date) 07/15/22 Last unknown) Updated by: Rabia Gooden MD (unknown) (no (unknown) (unknown) Visit Date: (units (un known) date) 07/29/22 Last unknown) Updated by: Rabia Gooden MD (unknown) (no (unknown) (unknown) Visit Reasons: (units (unknown) date) post C section unknown) f/u (unknown) (no (unknown) (unknown) Vitals (units (unkno wn) date) unknown) (unknown) (no (unknown) (unknown) Vitamin (units (unkno wn) date) K-: Yes unknown) (unknown) (no (unknown) (unknown) Vitamins and (units (u nknown) date) iron, Diet and unknown) weight gain, Fish and mercury intake, Caffeine use, (unknown) (no (unknown) (unknown) WG (units (unkno wn) date) unknown) (unknown) (no (unknown) (unknown) Weight 186 lb (units ( unknown) date) unknown) (unknown) (no (unknown) (unknown) 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 works at (unknown) (no (unknown) (unknown) Yes no 130 27 (units ( unknown) date) absent glucola unknown) ordered 2 (unknown) (no (unknown) (unknown) Yes no 132 28 (units ( unknown) date) absent 2wks unknown) (unknown) (no (unknown) (unknown) Yes no 134 31 (units ( unknown) date) absent 2wks unknown) (unknown) (no (unknown) (unknown) Yes no 140 30 (units ( unknown) date) absent 2wks unknown) (unknown) (no (unknown) (unknown) Yes no 144 21 (units ( unknown) date) abse unknown) (unknown) (no (unknown) (unknown) Yes yes 140 (units (un known) date) absent unknown) (unknown) (no (unknown) (unknown) Zika virus (units (unk nown) date) exposure: No unknown) (unknown) (no (unknown) (unknown) [Rx Confirmed (units ( unknown) date) 09/02/22] unknown) (unknown) (no (unknown) (unknown) alcohol intake: (units (unknown) date) former unknown) (unknown) (no (unknown) (unknown) amoxicillin (units (un known) date) Allergy (Mild, unknown) Verified 09/02/22 15:44) (unknown) (no (unknown) (unknown) anyone in either (units (unknown) date) family with: unknown) (unknown) (no (unknown) (unknown) 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 (units (unk nown) date) unknown) (unknown) (no (unknown) (unknown) azithromycin (units (u nknown) date) Allergy (Mild, unknown) Verified 09/02/22 15:44) (unknown) (no (unknown) (unknown) baby's father (units ( unknown) date) had a child with unknown) defects not listed above and Denies Other (unknown) (no (unknown) (unknown) caffeine: Yes (units ( unknown) date) unknown) (unknown) (no (unknown) (unknown) carbon monox (units (u nknown) date) detector in home: unknown) Yes (unknown) (no (unknown) (unknown) changes. Mild (units ( unknown) date) headaches - unknown) usually relieved quickly, stressed at work. No RUQ (unknown) (no (unknown) (unknown) changes. Mother (units (unknown) date) with unknown) due to severe pre-eclampsia at 23wks. (unknown) (no (unknown) (unknown) chlorhexidine (units ( unknown) date) Adverse Reaction unknown) (Intermediate, Verified 09/02/22 15:44) (unknown) (no (unknown) (unknown) clobetasol 0.05 (units (unknown) date) % topical unknown) ointment 1 applic topical BID #45 grams 07/01/22 [Rx (unknown) (no (unknown) (unknown) consistent with (units (unknown) date) PUPPS, but bile unknown) acids ordered to ensure no cholestasis as well. (unknown) (no (unknown) (unknown) current (units (unkno wn) date) occupational unknown) exposures/hazards : No (unknown) (no (unknown) (unknown) daily servings (units (unknown) date) fruits/ve-1 unknown) (unknown) (no (unknown) (unknown) described, visit (units (unknown) date) schedule unknown) reviewed, ultrasounds policy reviewed, coverage 24 (unknown) (no (unknown) (unknown) discharge) (units (unk nown) date) unknown) (unknown) (no (unknown) (unknown) discussed, (units (unk nown) date) tuberculosis unknown) exposure discussed, CMV discussed, Toxoplasmosis (unknown) (no (unknown) (unknown) disorders, (units (unk nown) date) Denies Cystic unknown) Fibrosis, Denies Mental Retardation/Autis m, Denies (unknown) (no (unknown) (unknown) do you feel safe (units (unknown) date) at home: Yes unknown) (unknown) (no (unknown) (unknown) during the past (units (unknown) date) year weight has: unknown) remained stable (unknown) (no (unknown) (unknown) eclampsia - (units (un known) date) diagnosed 08/04 unknown) at 33w6d. Started Nifedipine 30mg XR. Plan on (unknown) (no (unknown) (unknown) education level: (units (unknown) date) other unknown) (unknown) (no (unknown) (unknown) exposure, (units (unkn own) date) Medication use, unknown) Sauna/hot tub use, Dental care, Travel and Influenza (unknown) (no (unknown) (unknown) feet/calves. (units (u nknown) date) Discussed unknown) elevation, water, decreased salt intake. (unknown) (no (unknown) (unknown) fire (units (unkno wn) date) extinguisher in unknown) home: Yes (unknown) (no (unknown) (unknown) firearms in (units (un known) date) home: No unknown) (unknown) (no (unknown) (unknown) have occurred. (units (unknown) date) If there are any unknown) questions, please contact the Medical Records (unknown) (no (unknown) (unknown) hemorrhage. (units (un known) date) Discharged on unknown) 08/14. (unknown) (no (unknown) (unknown) her Jeaneth (units (unkn own) date) unknown) (unknown) (no (unknown) (unknown) hours a day and (units (unknown) date) participation of unknown) father in care and office visits (unknown) (no (unknown) (unknown) household (units (unkn own) date) members: unknown) significant other and children (unknown) (no (unknown) (unknown) housing: (units (unkno wn) date) apartment unknown) (unknown) (no (unknown) (unknown) hyperemesis 1st (units (unknown) date) trimester unknown) (unknown) (no (unknown) (unknown) irritability, (units ( unknown) date) bloating and unknown) other (unknown) (no (unknown) (unknown) labetalol 100 mg (units (unknown) date) tablet 400 mg PO unknown) BID #360 tabs 08/04/22 [Rx Confirmed 09/02/22] (unknown) (no (unknown) (unknown) labs today (units (unk nown) date) unknown) (unknown) (no (unknown) (unknown) labs (units (unkno wn) date) unknown) (unknown) (no (unknown) (unknown) latex Adverse (units ( unknown) date) Reaction (Mild, unknown) Verified 09/02/22 15:44) (unknown) (no (unknown) (unknown) lives (units (unkno wn) date) independently: unknown) Yes (unknown) (no (unknown) (unknown) marital status: (units (unknown) date) unmarried,living unknown) together (unknown) (no (unknown) (unknown) may occur. (units (unk nown) date) Occasional unknown) wrong-word or 'sound-alike' substitutions may have (unknown) (no (unknown) (unknown) medication (units (unk nown) date) 110/90 was the unknown) highest, usually diastolic in the 80s. No vision (unknown) (no (unknown) (unknown) mester if well (units (unknown) date) controlled (2nd unknown) trimester normal). Started baby aspirin at 12 (unknown) (no (unknown) (unknown) nifedipine 30 mg (units (unknown) date) tablet,extended unknown) release 24 hr 30 mg PO DAILY #30 tabs 08/04/22 (unknown) (no (unknown) (unknown) nt (units (unkno wn) date) unknown) (unknown) (no (unknown) (unknown) number of (units (unkn own) date) children: 2 unknown) (unknown) (no (unknown) (unknown) occupational (units (u nknown) date) status: employed unknown) (unknown) (no (unknown) (unknown) occurred due to (units (unknown) date) the inherent unknown) limitations of voice recognition software. Please (unknown) (no (unknown) (unknown) other [place]ron (units (un known) date) unknown) (unknown) (no (unknown) (unknown) pain. Pt will (units ( unknown) date) complete 24hr unknown) protein this week. (unknown) (no (unknown) (unknown) pets and (units (unkno wn) date) animals: Yes (1 unknown) cat (pt is not managing litter box)) (unknown) (no (unknown) (unknown) precautions, (units (u nknown) date) Listeriosis unknown) prevention and Rubella Immunization (unknown) (no (unknown) (unknown) prenat.vits,miguel, (units (unknown) date) [id number] 1 unknown) tab PO DAILY 01/27/22 [History Confirmed (unknown) (no (unknown) (unknown) production - (units (u nknown) date) total 50mL when unknown) pumping. Pumping every 3 hours. He is feeding 50 (unknown) (no (unknown) (unknown) pt check her BPs (units (unknown) date) at home daily and unknown) bring log to next appt. (unknown) (no (unknown) (unknown) read the note (units ( unknown) date) carefully and unknown) recognize, using context, where these substitutions (unknown) (no (unknown) (unknown) records (units (unkno wn) date) unknown) (unknown) (no (unknown) (unknown) seatbelt use: (units ( unknown) date) always unknown) (unknown) (no (unknown) (unknown) second hand (units (un known) date) exposure: No unknown) (unknown) (no (unknown) (unknown) seeing spots (units (u nknown) date) primarily later unknown) in the day. Increase Labetalol to 300mg BID. (unknown) (no (unknown) (unknown) software. (units (unkn own) date) Although every unknown) effort is made to edit content, white sidewall tire buffer errors (unknown) (no (unknown) (unknown) soon. (units (unkno wn) date) unknown) (unknown) (no (unknown) (unknown) special fly (units ( unknown) date) needs: No unknown) (unknown) (no (unknown) (unknown) stress (units (unkno wn) date) incontinence unknown) (unknown) (no (unknown) (unknown) substance use (units ( unknown) date) type: marijuana unknown) (unknown) (no (unknown) (unknown) to Labetalol (units (u nknown) date) with . unknown) BP quite elevated today. Increase to 200mg daily (unknown) (no (unknown) (unknown) today. Acutely (units (unknown) date) worse today. BPs unknown) at home have been 120/70-80s. - Will obtain (unknown) (no (unknown) (unknown) today. Baseline (units (unknown) date) pre-eclampsia unknown) labs ordered. (unknown) (no (unknown) (unknown) vaccine (units (unkno wn) date) unknown) (unknown) (no (unknown) (unknown) water heater (units (u nknown) date) temp set < 120 unknown) deg: Yes (Will check and adjust if needed) (unknown) (no (unknown) (unknown) weekly labs. (units (u nknown) date) testing unknown) still. Delivery at 37wks (requested 08/26/22) (unknown) (no (unknown) (unknown) weeks. NSTs (units (un known) date) starting at unknown) 32wks. Serial growth ultrasounds (last 08/04). Pre (unknown) (no (unknown) (unknown) well-balanced (units ( unknown) date) diet: about half unknown) the time (unknown) (no (unknown) (unknown) wks (units (unkno wn) date) unknown) (unknown) (no (unknown) (unknown) working on (units (unk nown) date) cutting down salt unknown) intake. (unknown) (no (unknown) (unknown) working smoke (units ( unknown) date) detector in home: unknown) Yes Result panel 28 (unknown) (no date) (unknown) (unknown) 1.0 % (unkn own) (unknown) (no date) (unknown) (unknown) 100 /ul (unkn own) (unknown) (no date) (unknown) (unknown) 11.0 g/dl (unkn own) (unknown) (no date) (unknown) (unknown) 1500 /ul (unkn own) (unknown) (no date) (unknown) (unknown) 16.5 % (unkn own) (unknown) (no date) (unknown) (unknown) 214 x10 3/ul (unkn own) (unknown) (no date) (unknown) (unknown) 26.8 % (unkn own) (unknown) (no date) (unknown) (unknown) 3.46 x10 6/ul (unkn own) (unknown) (no date) (unknown) (unknown) 30.8 % (unkn own) (unknown) (no date) (unknown) (unknown) 300 /ul (unkn own) (unknown) (no date) (unknown) (unknown) 31.7 pg (unkn own) (unknown) (no date) (unknown) (unknown) 3200 /ul (unkn own) (unknown) (no date) (unknown) (unknown) 35.7 % (unkn own) (unknown) (no date) (unknown) (unknown) 4.7 % (unkn own) (unknown) (no date) (unknown) (unknown) 400 /ul (unkn own) (unknown) (no date) (unknown) (unknown) 5.4 x10 3/ul (unkn own) (unknown) (no date) (unknown) (unknown) 59.4 % (unkn own) (unknown) (no date) (unknown) (unknown) 8.1 % (unkn own) (unknown) (no date) (unknown) (unknown) 88.8 fl (unkn own) Result panel 29 (unknown) (no date) (unknown) (unknown) > 60 ml/min (unkn own) (unknown) (no date) (unknown) (unknown) > 60 ml/min (unkn own) (unknown) (no date) (unknown) (unknown) 0.97 mg/dl (unkn own) (unknown) (no date) (unknown) (unknown) 1.0 mg/dl (unkn own) (unknown) (no date) (unknown) (unknown) 1.6 (units unknown) (unknown) (unknown) (no date) (unknown) (unknown) 104 mmol/l (unkn own) (unknown) (no date) (unknown) (unknown) 13 mg/dl (unkn own) (unknown) (no date) (unknown) (unknown) 13.4 (units unknown) (unknown) (unknown) (no date) (unknown) (unknown) 139 mmol/l (unkn own) (unknown) (no date) (unknown) (unknown) 2.8 g/dl (unkn own) (unknown) (no date) (unknown) (unknown) 28 mmol/l (unkn own) (unknown) (no date) (unknown) (unknown) 3.7 mmol/l (unkn own) (unknown) (no date) (unknown) (unknown) 32 iu/l (unkn own) (unknown) (no date) (unknown) (unknown) 4.4 g/dl (unkn own) (unknown) (no date) (unknown) (unknown) 50 iu/l (unkn own) (unknown) (no date) (unknown) (unknown) 7.2 g/dl (unkn own) (unknown) (no date) (unknown) (unknown) 8.8 mg/dl (unkn own) (unknown) (no date) (unknown) (unknown) 81 u/l (unkn own) (unknown) (no date) (unknown) (unknown) 88 mg/dl (unkn own) (unknown) (no date) (unknown) (unknown) 88 mg/dl (unkn own) Result panel 30 (unknown) (no date) (unknown) (unknown) > 60 ml/min (unkn own) (unknown) (no date) (unknown) (unknown) > 60 ml/min (unkn own) (unknown) (no date) (unknown) (unknown) 0.97 mg/dl (unkn own) (unknown) (no date) (unknown) (unknown) 1.0 mg/dl (unkn own) (unknown) (no date) (unknown) (unknown) 1.6 (units unknown) (unknown) (unknown) (no date) (unknown) (unknown) 104 mmol/l (unkn own) (unknown) (no date) (unknown) (unknown) 12.8 ng/ml (unkn own) (unknown) (no date) (unknown) (unknown) 13 mg/dl (unkn own) (unknown) (no date) (unknown) (unknown) 13.4 (units unknown) (unknown) (unknown) (no date) (unknown) (unknown) 139 mmol/l (unkn own) (unknown) (no date) (unknown) (unknown) 2.8 g/dl (unkn own) (unknown) (no date) (unknown) (unknown) 28 mmol/l (unkn own) (unknown) (no date) (unknown) (unknown) 3.7 mmol/l (unkn own) (unknown) (no date) (unknown) (unknown) 32 iu/l (unkn own) (unknown) (no date) (unknown) (unknown) 4.4 g/dl (unkn own) (unknown) (no date) (unknown) (unknown) 50 iu/l (unkn own) (unknown) (no date) (unknown) (unknown) 7.2 g/dl (unkn own) (unknown) (no date) (unknown) (unknown) 8.8 mg/dl (unkn own) (unknown) (no date) (unknown) (unknown) 81 u/l (unkn own) (unknown) (no date) (unknown) (unknown) 88 mg/dl (unkn own) (unknown) (no date) (unknown) (unknown) 88 mg/dl (unkn own) Result panel 31 (unknown) (no date) (unknown) (unknown) 1.06 uiu/ml (unkn own) (unknown) (no date) (unknown) (unknown) 1.06 uiu/ml (unkn own) Result panel 32 (unknown) (no (unknown) (unknown) (no value) (units (unk nown) date) unknown) (unknown) (no (unknown) (unknown) (+0 oz) 146/80 (units (unknown) date) unknown) (unknown) (no (unknown) (unknown) (+10 lb) 120/82 (units (unknown) date) unknown) (unknown) (no (unknown) (unknown) (+10 lb) 140/86 (units (unknown) date) unknown) (unknown) (no (unknown) (unknown) (+10 lb) 140/90 (units (unknown) date) unknown) (unknown) (no (unknown) (unknown) (+3 lb) 160/116 (units (unknown) date) unknown) (unknown) (no (unknown) (unknown) (+4 oz) 126/70 (units (unknown) date) unknown) (unknown) (no (unknown) (unknown) (+6 lb) 134/84 (units (unknown) date) unknown) (unknown) (no (unknown) (unknown) (+9 lb) 136/90 (units (unknown) date) unknown) (unknown) (no (unknown) (unknown) (-12 lb) 140/84 (units (unknown) date) unknown) (unknown) (no (unknown) (unknown) (1) Essential (units ( unknown) date) hypertension: unknown) (unknown) (no (unknown) (unknown) (2) Preeclampsia: (units (unknown) date) unknown) (unknown) (no (unknown) (unknown) (3) (units (unknown) date) hemorrhage: unknown) (unknown) (no (unknown) (unknown) (4) S/P : (units (unknown) date) unknown) (unknown) (no (unknown) (unknown) Genetic (units (unkn own) date) Screening/Teratology unknown) Counseling - Includes patient, baby's father, or (unknown) (no (unknown) (unknown) -?-?-?-?-?-?-?-?-?- (unit s (unknown) date) ?-?-? unknown) (unknown) (no (unknown) (unknown) [id number] (units (unkno wn) date) unknown) (unknown) (no (unknown) (unknown) 09/02/22 (units (unkno wn) date) unknown) (unknown) (no (unknown) (unknown) 09/02/22] (units (unkn own) date) unknown) (unknown) (no (unknown) (unknown) 09/11/22 0908 (units ( unknown) date) unknown) (unknown) (no (unknown) (unknown) 12/10/14 39 8 lb 3 (units (unknown) date) oz Female unknown) live - full term (unknown) (no (unknown) (unknown) 01/06/11 41 1 9 lb (units (unknown) date) 1 oz Male unknown) live - full term (unknown) (no (unknown) (unknown) 02/10/22 (units (unkno wn) date) unknown) (unknown) (no (unknown) (unknown) 03/16/22 (units (unkno wn) date) unknown) (unknown) (no (unknown) (unknown) 04/15/22 (units (unkno wn) date) unknown) (unknown) (no (unknown) (unknown) 05/13/22 (units (unkno wn) date) unknown) (unknown) (no (unknown) (unknown) 06/17/22 (units (unkno wn) date) unknown) (unknown) (no (unknown) (unknown) 07/01/22 (units (unkno wn) date) unknown) (unknown) (no (unknown) (unknown) 07/15/22 (units (unkno wn) date) unknown) (unknown) (no (unknown) (unknown) 07/29/22 (units (unkno wn) date) unknown) (unknown) (no (unknown) (unknown) 13w 5d 198 lb 4 oz (units (unknown) date) unknown) (unknown) (no (unknown) (unknown) 152/116 (units (unkno wn) date) unknown) (unknown) (no (unknown) (unknown) 15:44 (units (unkno wn) date) unknown) (unknown) (no (unknown) (unknown) 18w 0d 198 lb (units ( unknown) date) unknown) (unknown) (no (unknown) (unknown) 2+ 4wks (units (unkno wn) date) unknown) (unknown) (no (unknown) (unknown) 22w 0d 204 lb (units ( unknown) date) unknown) (unknown) (no (unknown) (unknown) 27w 0d 207 lb (units ( unknown) date) unknown) (unknown) (no (unknown) (unknown) 29w 0d 208 lb (units ( unknown) date) unknown) (unknown) (no (unknown) (unknown) 31w 0d 208 lb (units ( unknown) date) unknown) (unknown) (no (unknown) (unknown) 33w 0d 208 lb (units ( unknown) date) unknown) (unknown) (no (unknown) (unknown) 38w 0d 186 lb (units ( unknown) date) unknown) (unknown) (no (unknown) (unknown) 4wks (units (unkno wn) date) unknown) (unknown) (no (unknown) (unknown) 02/10, 300mg BID (units (unknown) date) 06/17. Baseline unknown) pre-eclampsia labs ordered. Will need qtri (unknown) (no (unknown) (unknown) 70mL/feed. (units (unk nown) date) unknown) (unknown) (no (unknown) (unknown) 8w 6d 201 lb (units (u nknown) date) unknown) (unknown) (no (unknown) (unknown) Abdomen with a very (unit s (unknown) date) itchy rash. Nothing unknown) on her hands and feet. Most (unknown) (no (unknown) (unknown) Abdomen: soft and (units (unknown) date) non-tender unknown) (unknown) (no (unknown) (unknown) Abnormal lab values (unit s (unknown) date) 1st trimester: unknown) discussed (unknown) (no (unknown) (unknown) Abnormal lab values (unit s (unknown) date) 3rd trimester: unknown) discussed (unknown) (no (unknown) (unknown) Accompanied by: (units (unknown) date) Self / Same As unknown) Patient (unknown) (no (unknown) (unknown) Add'l Plan Details (units (unknown) date) unknown) (unknown) (no (unknown) (unknown) Age/Sex: 32 / F (units (unknown) date) Date of Service: unknown) (unknown) (no (unknown) (unknown) Allergies (units (unkn own) date) unknown) (unknown) (no (unknown) (unknown) [facility] [facility] (units (unknown) date) Medicine unknown) (unknown) (no (unknown) (unknown) BHAVYA Cotter [id number] (unit s (unknown) date) unknown) (unknown) (no (unknown) (unknown) Anatomy scan (units (u nknown) date) normal, 88th unknown) percentile (unknown) (no (unknown) (unknown) Anatomy u/s ordered (unit s (unknown) date) unknown) (unknown) (no (unknown) (unknown) Anesthesia (units (unk nown) date) preference: Other unknown) (spinal for c/s) (unknown) (no (unknown) (unknown) Anesthesia/Analgesi (unit s (unknown) date) a plans: discussed unknown) (unknown) (no (unknown) (unknown) Aneuploidy (units (unk nown) date) Screening Offered: unknown) Accepted (unknown) (no (unknown) (unknown) Antibiotic Eye (units (unknown) date) Drops-Infant: Yes unknown) (unknown) (no (unknown) (unknown) Anticipated course (units (unknown) date) of care: unknown) discussed (unknown) (no (unknown) (unknown) Assessment and Plan (unit s (unknown) date) unknown) (unknown) (no (unknown) (unknown) Asymptomatic. (units ( unknown) date) Vision changes unknown) improved with iron supplement. (unknown) (no (unknown) (unknown) Attending Dr: (units ( unknown) date) Rabia Gooden MD unknown) (unknown) (no (unknown) (unknown) BP 140/84 (units (unkn own) date) unknown) (unknown) (no (unknown) (unknown) BPs at home (units (un known) date) diastolic 90-93, unknown) systolic in 130s. No headaches. Pt is (unknown) (no (unknown) (unknown) BPs at home have (units (unknown) date) been 130/80-90s. unknown) Increase Labetalol to 400mg BID. (unknown) (no (unknown) (unknown) BPs at home have (units (unknown) date) been in normal unknown) range. (unknown) (no (unknown) (unknown) BPs have been (units ( unknown) date) consistently in good unknown) range, 110s/60s in general. (unknown) (no (unknown) (unknown) Baby came home (units (unknown) date) 08/26/22. unknown) (unknown) (no (unknown) (unknown) (units (unkno wn) date) Plan/Preferences unknown) (unknown) (no (unknown) (unknown) Planning (units (unknown) date) unknown) (unknown) (no (unknown) (unknown) control (units ( unknown) date) method:: permanent unknown) sterilization (unknown) (no (unknown) (unknown) Bladder: Reports (units (unknown) date) emptying; Denies unknown) pain with urination, urge incontinence or (unknown) (no (unknown) (unknown) Bleeding: Yes (units ( unknown) date) (clotting ping-pong unknown) ball size on 08/30, now just orange-brown (unknown) (no (unknown) (unknown) Blister (units (unkno wn) date) unknown) (unknown) (no (unknown) (unknown) Blood Pressure (units (unknown) date) Location Lt brachial unknown) (unknown) (no (unknown) (unknown) Blood (units (unkno wn) date) transfusions?: yes unknown) (unknown) (no (unknown) (unknown) Blues/Depression/An (unit s (unknown) date) xiety: Yes unknown) (unknown) (no (unknown) (unknown) Bowel: Reports (units (unknown) date) daily and stool unknown) soft; Denies constipation or stool hard (unknown) (no (unknown) (unknown) Breastfeed Preg (units (unknown) date) Comp Name unknown) (unknown) (no (unknown) (unknown) Breasts: symmetric (units (unknown) date) unknown) (unknown) (no (unknown) (unknown) Checking BPs at (units (unknown) date) home - before unknown) medication BPs usually 140s/80s. After (unknown) (no (unknown) (unknown) Chronic HTN - (units ( unknown) date) Switched to unknown) Labetalol with . Increased to 200mg BID (unknown) (no (unknown) (unknown) Chronic HTN started (unit s (unknown) date) January 2021, on unknown) Lisinopril. Added Carvedilol. Switched (unknown) (no (unknown) (unknown) Chronic cough (units ( unknown) date) (-2000) unknown) (unknown) (no (unknown) (unknown) Complete Blood (units (unknown) date) Count AUTO DIFF unknown) 09/02/22 I10 - Essential (primary) hypertension, (unknown) (no (unknown) (unknown) Comprehensive (units ( unknown) date) Metabolic Panel unknown) 09/02/22 I10 - Essential (primary) hypertension, (unknown) (no (unknown) (unknown) Confirmed 09/02/22] (unit s (unknown) date) unknown) (unknown) (no (unknown) (unknown) Current Estimate (units (unknown) date) 09/16/22 LMP unknown) (Certain) 39w 2d (unknown) (no (unknown) (unknown) Current (units (unknown) date) History unknown) (unknown) (no (unknown) (unknown) : 1990 (units (unknown) date) Acct:[id number] unknown) (unknown) (no (unknown) (unknown) Date of positive (units (unknown) date) home test: unknown) 12/30/21 (unknown) (no (unknown) (unknown) Date (units (unkno wn) date) unknown) (unknown) (no (unknown) (unknown) Dating u/s (units (unk nown) date) concordant with LMP, unknown) keep CLAU 09/16/22. (unknown) (no (unknown) (unknown) Del. Date GA/Weeks (units (unknown) date) Labor Lgth Wt unknown) Sex Route Outcome Anesthesia Place (unknown) (no (unknown) (unknown) Delayed cord (units (u nknown) date) clamping: Yes unknown) (unknown) (no (unknown) (unknown) Delivery Date: (units (unknown) date) 12/10/14 Last unknown) Updated by: Bianca Arenas R.N. (unknown) (no (unknown) (unknown) Delivery Date: (units (unknown) date) 01/06/11 Last unknown) Updated by: Bianca Arenas R.N. (unknown) (no (unknown) (unknown) Delivery Date: (units (unknown) date) 08/07/22 unknown) (unknown) (no (unknown) (unknown) Delv (units (unkno wn) date) unknown) (unknown) (no (unknown) (unknown) Denies Congenital (units (unknown) date) Heart Defect, Denies unknown) Down Syndrome, Denies Muscular Dystrophy, (unknown) (no (unknown) (unknown) Denies Maternal (units (unknown) date) Metabolic Disorder unknown) (EG,TYPE 1 Diabetes, PKU), Denies Patient or (unknown) (no (unknown) (unknown) Denies Neural Tube (units (unknown) date) Defect unknown) (Meningomyelocele, Spina Bifida, or Anencephaly), (unknown) (no (unknown) (unknown) Denies Sickle Cell (units (unknown) date) Disease or Trait unknown) (), Denies Hemophilia or other blood (unknown) (no (unknown) (unknown) Denies Willie-Sachs (units (unknown) date) (Ashkenazi Yarsani, unknown) [place], [place]), Denies Fred (unknown) (no (unknown) (unknown) Denies other (units (u nknown) date) unknown) (unknown) (no (unknown) (unknown) Denies over the (units (unknown) date) counter medications, unknown) Denies alcohol, Denies illicit drugs and (unknown) (no (unknown) (unknown) Depression (units (unk nown) date) unknown) (unknown) (no (unknown) (unknown) Depression: (units (un known) date) discussed unknown) (unknown) (no (unknown) (unknown) Dept at (units (unkno wn) date) . unknown) (unknown) (no (unknown) (unknown) Desires quad screen (unit s (unknown) date) for genetic testing. unknown) (unknown) (no (unknown) (unknown) Diet and Exercise (units (unknown) date) unknown) (unknown) (no (unknown) (unknown) Disease (Ashkenazi (units (unknown) date) Yarsani), Denies unknown) Familial Dysautonomia (Ashkenazi Yarsani), (unknown) (no (unknown) (unknown) Documented By: (units (unknown) date) Rabia Gooden MD unknown) 09/02/22 1301 (unknown) (no (unknown) (unknown) CLAU Calculator (units (unknown) date) unknown) (unknown) (no (unknown) (unknown) EGA Weight BP (units ( unknown) date) UGlucose unknown) (unknown) (no (unknown) (unknown) Estimated Delivery (units (unknown) date) Date Method Current unknown) (unknown) (no (unknown) (unknown) Exam (units (unkno wn) date) unknown) (unknown) (no (unknown) (unknown) Exercise and (units (u nknown) date) activity, unknown) work/environmental/h azards, Sexual activity, X-ray (unknown) (no (unknown) (unknown) FHT 167. Normal (units (unknown) date) adnexa and ovaries. unknown) (unknown) (no (unknown) (unknown) Failed glucola, 3hr (unit s (unknown) date) GTT needs to be unknown) scheduled, will schedule today. (unknown) (no (unknown) (unknown) Family History (units (unknown) date) (Reviewed 07/30/22 @ unknown) 11:31 by Karina Gaytan DO) (unknown) (no (unknown) (unknown) Father of Baby: (units (unknown) date) same unknown) (unknown) (no (unknown) (unknown) Feeding: breast (units (unknown) date) unknown) (unknown) (no (unknown) (unknown) movement (units (unknown) date) monitoring: unknown) discussed (unknown) (no (unknown) (unknown) First Trimester (units (unknown) date) Education Checklist unknown) (unknown) (no (unknown) (unknown) GERD getting worse. (unit s (unknown) date) Tums doesn't help. - unknown) Discussed Pepcid (unknown) (no (unknown) (unknown) Genetic Screening + (unit s (unknown) date) Counseling unknown) (unknown) (no (unknown) (unknown) Genetic Screening (units (unknown) date) unknown) (unknown) (no (unknown) (unknown) Glucola competed (units (unknown) date) 07/14 at [facility] - unknown) records requested (unknown) (no (unknown) (unknown) Glucola ordered (units (unknown) date) unknown) (unknown) (no (unknown) (unknown) Grandfather (units (un known) date) Hypertension unknown) (unknown) (no (unknown) (unknown) Grandmother Type 2 (units (unknown) date) diabetes mellitus unknown) (unknown) (no (unknown) (unknown) 3 Multiple (units (unknown) date) births unknown) (unknown) (no (unknown) (unknown) : 3 (units (unk nown) date) unknown) (unknown) (no (unknown) (unknown) Growth u/s (units (unk nown) date) scheduled 08/10. unknown) (unknown) (no (unknown) (unknown) Growth ultrasound (units (unknown) date) ordered today unknown) (unknown) (no (unknown) (unknown) H/O bilateral (units ( unknown) date) salpingectomy unknown) (unknown) (no (unknown) (unknown) HIV risk (units (unkno wn) date) evaluation: low risk unknown) (unknown) (no (unknown) (unknown) Health Center (units ( unknown) date) Education unknown) (unknown) (no (unknown) (unknown) Health center (units ( unknown) date) information: nature unknown) of practice discussed, personnel (unknown) (no (unknown) (unknown) Hep B-: Yes (units (unknown) date) unknown) (unknown) (no (unknown) (unknown) Hepatitis C risk (units (unknown) date) evaluation: low risk unknown) (unknown) (no (unknown) (unknown) High risk (units (unkn own) date) type/reason(s): unknown) chronic HTN (unknown) (no (unknown) (unknown) History of (units (unk nown) date) Hepatitis B: No unknown) (unknown) (no (unknown) (unknown) History of (units (unk nown) date) Hepatitis C: No unknown) (unknown) (no (unknown) (unknown) History/Interim (units (unknown) date) Details unknown) (unknown) (no (unknown) (unknown) [facility] (units (u nknown) date) unknown) (unknown) (no (unknown) (unknown) [facility] (units (u nknown) date) Chorea, Denies Other unknown) inherited genetic or chromosomal disorder, (unknown) (no (unknown) (unknown) Hx # (units (u nknown) date) Pregnancies Elective unknown) abortions (unknown) (no (unknown) (unknown) Hx # Term (units (unkn own) date) Pregnancies 2 unknown) Ectopic pregnancies (unknown) (no (unknown) (unknown) Hx of prior (units (un known) date) unknown) (unknown) (no (unknown) (unknown) Hypertension (units (u nknown) date) unknown) (unknown) (no (unknown) (unknown) IH 3 months ot (units (unknown) date) unknown) (unknown) (no (unknown) (unknown) IH attempted (units (u nknown) date) unknown) (unknown) (no (unknown) (unknown) ITCHING (units (unkno wn) date) unknown) (unknown) (no (unknown) (unknown) Incision: clean, (units (unknown) date) dry and intact; unknown) Negative for granulation tissue, discharge or (unknown) (no (unknown) (unknown) Increased foot (units (unknown) date) swelling. No unknown) headaches, vision changes, RUQ pain. (unknown) (no (unknown) (unknown) Infant (units (u nknown) date) Weight: 5 lbs 7.6oz unknown) (unknown) (no (unknown) (unknown) Infant Longest (units (unknown) date) Sleep: 4 unknown) (unknown) (no (unknown) (unknown) Infant will be (units (unknown) date) adopted?: no unknown) (unknown) (no (unknown) (unknown) Infant's Sex: Male (units (unknown) date) unknown) (unknown) (no (unknown) (unknown) Infection History (units (unknown) date) unknown) (unknown) (no (unknown) (unknown) Infectious Disease (units (unknown) date) Education unknown) (unknown) (no (unknown) (unknown) Infectious disease (units (unknown) date) exposure: chicken unknown) pox immunity discussed, hepatitis risk (unknown) (no (unknown) (unknown) Initial Weight: 198 (unit s (unknown) date) lb unknown) (unknown) (no (unknown) (unknown) Initials (units (unkno wn) date) unknown) (unknown) (no (unknown) (unknown) Intake Note: (units (u nknown) date) unknown) (unknown) (no (unknown) (unknown) Intake (units (unkno wn) date) unknown) (unknown) (no (unknown) (unknown) Arma: (units (u nknown) date) Reports not resumed unknown) (unknown) (no (unknown) (unknown) Interim (units ( unknown) date) control method: unknown) Reports permanent sterilization (unknown) (no (unknown) (unknown) FELICITY (units (unkno wn) date) unknown) (unknown) (no (unknown) (unknown) Left breast (units (un known) date) producing little, unknown) 10mL when pumping. Right side with more (unknown) (no (unknown) (unknown) Legs have been (units (unknown) date) swelling slightly. unknown) She is wearing compression socks, (unknown) (no (unknown) (unknown) Live with someone (units (unknown) date) with TB or exposed unknown) to TB: No (unknown) (no (unknown) (unknown) Loc: [facility] (units (unkno wn) date) unknown) (unknown) (no (unknown) (unknown) Marital status: (units (unknown) date) unmarried,living unknown) together (unknown) (no (unknown) (unknown) Medical History (units (unknown) date) (Updated 08/04/22 @ unknown) 13:01 by Rabia Gooden MD) (unknown) (no (unknown) (unknown) Medications (units (un known) date) unknown) (unknown) (no (unknown) (unknown) Mild intermittent (units (unknown) date) headaches. Can tell unknown) when BP is higher due to vision (unknown) (no (unknown) (unknown) Mother Age: 51 (units (unknown) date) Stroke unknown) (unknown) (no (unknown) (unknown) NSTs have started, (units (unknown) date) reassuring thus far. unknown) (unknown) (no (unknown) (unknown) NSTs to start next (units (unknown) date) week. Growth scan unknown) ordered. (unknown) (no (unknown) (unknown) Nausea is improved, (unit s (unknown) date) tolerable now. unknown) (unknown) (no (unknown) (unknown) No no 150 absent (units (unknown) date) anatomy ordered 4wks unknown) (unknown) (no (unknown) (unknown) No no 167 absent (units (unknown) date) dating u/s 4wks unknown) (unknown) (no (unknown) (unknown) Notes (units (unkno wn) date) unknown) (unknown) (no (unknown) (unknown) Number of Living (units (unknown) date) Children 2 unknown) (unknown) (no (unknown) (unknown) Number of Weeks (units (unknown) date) Post : 4 unknown) (unknown) (no (unknown) (unknown) Number of fetuses:: (unit s (unknown) date) Single unknown) (unknown) (no (unknown) (unknown) Nutrition and (units ( unknown) date) weight gain unknown) counseling: special diet: discussed (unknown) (no (unknown) (unknown) O14.90 - (units (unkno wn) date) Unspecified unknown) pre-eclampsia, unspecified trimester (unknown) (no (unknown) (unknown) OB Office Visit (units (unknown) date) unknown) (unknown) (no (unknown) (unknown) OB Visit Log (units (u nknown) date) unknown) (unknown) (no (unknown) (unknown) On control at (unit s (unknown) date) conception?: Yes unknown) (OCP, stopped on learning of ) (unknown) (no (unknown) (unknown) Orders (units (unkno wn) date) unknown) (unknown) (no (unknown) (unknown) Orders: (units (unkno wn) date) unknown) (unknown) (no (unknown) (unknown) Other immediate (units (unknown) date) unknown) hemorrhage (unknown) (no (unknown) (unknown) Oxygen Delivery (units (unknown) date) Method room air unknown) (unknown) (no (unknown) (unknown) PFSH (units (unkno wn) date) unknown) (unknown) (no (unknown) (unknown) 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 (unknown) (no (unknown) (unknown) PUPP (pruritic (units (unknown) date) urticarial papules unknown) and plaques of ) (unknown) (no (unknown) (unknown) PUPPPS rash (units (un known) date) unknown) (unknown) (no (unknown) (unknown) Pain Control: (units ( unknown) date) Reports Uncontrolled unknown) (unknown) (no (unknown) (unknown) Pain to the right (units (unknown) date) side of her unknown) incision. Has been persistent. (unknown) (no (unknown) (unknown) Pap:: no (units (unkno wn) date) unknown) (unknown) (no (unknown) (unknown) Para 3 Spontaneous (units (unknown) date) abortions unknown) (unknown) (no (unknown) (unknown) Para: 3 (units (unkno wn) date) unknown) (unknown) (no (unknown) (unknown) Partner history of (units (unknown) date) STD: denies hx unknown) (unknown) (no (unknown) (unknown) Partner history of (units (unknown) date) genital herpes: No unknown) (unknown) (no (unknown) (unknown) Partner: Lloyd (units (unknown) date) [place] unknown) (unknown) (no (unknown) (unknown) Past Pregnancies (units (unknown) date) unknown) (unknown) (no (unknown) (unknown) Patient's age 35 (units (unknown) date) years or older as of unknown) estimated date of delivery: No (unknown) (no (unknown) (unknown) Patient: (units (unkno wn) date) Ga Hagan MR#: unknown) M00 (unknown) (no (unknown) (unknown) 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 Will be unknown) starting job at [employer] (unknown) (no (unknown) (unknown) Plan to obtain (units (unknown) date) baseline labs at unknown) next appt. Pt with increasing swelling (unknown) (no (unknown) (unknown) Plan (units (unkno wn) date) unknown) (unknown) (no (unknown) (unknown) Plantar fasciitis (units (unknown) date) (-2016) unknown) (unknown) (no (unknown) (unknown) Position Sitting (units (unknown) date) unknown) (unknown) (no (unknown) (unknown) Post Order (units (unknown) date) Checklist unknown) (unknown) (no (unknown) (unknown) Post (units (un known) date) unknown) (unknown) (no (unknown) (unknown) (units (unk nown) date) hemorrhage type: unknown) unspecified Qualified Code(s): O72.1 (unknown) (no (unknown) (unknown) (units (unkn own) date) Complications: unknown) hypertension (unknown) (no (unknown) (unknown) History (units (unknown) date) unknown) (unknown) (no (unknown) (unknown) type:: (units (unknown) date) High Risk Other unknown) (unknown) (no (unknown) (unknown) Education (units (unknown) date) unknown) (unknown) (no (unknown) (unknown) Initial (units (unknown) date) Assessment unknown) (unknown) (no (unknown) (unknown) Specific (units (unknown) date) Issues/Plans unknown) (unknown) (no (unknown) (unknown) Testing: (units (unknown) date) discussed unknown) (unknown) (no (unknown) (unknown) Visit (units (unknown) date) unknown) (unknown) (no (unknown) (unknown) education (units (unknown) date) packet: Child unknown) education/plan, symptoms, (unknown) (no (unknown) (unknown) Prilosec. (units (unkn own) date) unknown) (unknown) (no (unknown) (unknown) Primary Care (units (u nknown) date) Provider: Dr. Noel unknown) (unknown) (no (unknown) (unknown) Primary Ob (units (unk nown) date) Provider: unknown) Rabia Gooden (unknown) (no (unknown) (unknown) Prior GBS-Infected (units (unknown) date) child: No unknown) (unknown) (no (unknown) (unknown) Prolactin 09/02/22 (units (unknown) date) O72.1 - Other unknown) immediate hemorrhage (unknown) (no (unknown) (unknown) Providers (units (unkn own) date) unknown) (unknown) (no (unknown) (unknown) Psoriasis (units (unkn own) date) unknown) (unknown) (no (unknown) (unknown) Pt arrives for a (units (unknown) date) post unknown) appointment. Delivered at 33 wks and 6 days. (unknown) (no (unknown) (unknown) Pt did not complete (unit s (unknown) date) quad screen unknown) (unknown) (no (unknown) (unknown) Pt has been feeling (unit s (unknown) date) somewhat winded. No unknown) swelling. (unknown) (no (unknown) (unknown) Pt has random days (units (unknown) date) when she is sad, but unknown) feels it is within reason. (unknown) (no (unknown) (unknown) Pt hasn't been (units (unknown) date) checking BP at home, unknown) but when she did check was 130/80. (unknown) (no (unknown) (unknown) Pt is here for (units (unknown) date) check unknown) after repeat , premature, due to (unknown) (no (unknown) (unknown) Pt is on 400mg TID (units (unknown) date) currently, unknown) Nifedipine 30mg XR. BPs have been 120-140/70-80s. (unknown) (no (unknown) (unknown) Pt is taking Tums (units (unknown) date) and Prilosec, GERD unknown) still severe. Discussed BID dosing (unknown) (no (unknown) (unknown) Pt was on potassium (unit s (unknown) date) supplement at the unknown) time of discharge. (unknown) (no (unknown) (unknown) Pt was transfused 9 (units (unknown) date) units of PRBCs, unknown) plasma, and FFP while in the hospital due to (unknown) (no (unknown) (unknown) Pt with ongoing LE (units (unknown) date) swelling. Primarily unknown) left foot. No pain in (unknown) (no (unknown) (unknown) Pt with significant (unit s (unknown) date) nausea. Manageable unknown) thus far. Declines need for (unknown) (no (unknown) (unknown) Pulse 90 (units (unkno wn) date) unknown) (unknown) (no (unknown) (unknown) Pulse Oximetry (%) (units (unknown) date) 99 unknown) (unknown) (no (unknown) (unknown) Pulse Source (units (u nknown) date) Monitor unknown) (unknown) (no (unknown) (unknown) Quad screen ordered (unit s (unknown) date) today. Anatomy unknown) scheduled. (unknown) (no (unknown) (unknown) Qualifiers: (units (un known) date) unknown) (unknown) (no (unknown) (unknown) RASH AND ITCHING (units (unknown) date) unknown) (unknown) (no (unknown) (unknown) RASH (units (unkno wn) date) unknown) (unknown) (no (unknown) (unknown) ROS (units (unkno wn) date) unknown) (unknown) (no (unknown) (unknown) Rash or viral (units ( unknown) date) illness since last unknown) menstrual period: No (unknown) (no (unknown) (unknown) Rash (units (unkno wn) date) unknown) (unknown) (no (unknown) (unknown) Reason For Visit (units (unknown) date) unknown) (unknown) (no (unknown) (unknown) Recent travel (units ( unknown) date) outside of country?: unknown) No (unknown) (no (unknown) (unknown) Records requested (units (unknown) date) today to help unknown) elucidate cause, etc. Repeat CBC ordered (unknown) (no (unknown) (unknown) Recurrent (unit s (unknown) date) loss or a unknown) stillbirth: No (unknown) (no (unknown) (unknown) Reminded to (units (un known) date) complete glucola. unknown) Growth u/s scheduled for later today. (unknown) (no (unknown) (unknown) Reminded to (units (un known) date) complete lab work unknown) (unknown) (no (unknown) (unknown) Repeat BP today (units (unknown) date) 132/86. No unknown) headaches, vision changes, RUQ pain, edema. Request (unknown) (no (unknown) (unknown) Rx Clobetasol to (units (unknown) date) help with itching. unknown) (unknown) (no (unknown) (unknown) Safety (units (unkno wn) date) unknown) (unknown) (no (unknown) (unknown) Salpingectomy (units ( unknown) date) completed. unknown) (unknown) (no (unknown) (unknown) Signed By: (units (unk nown) date) <Electronically unknown) signed by Rabia Gooden MD> (unknown) (no (unknown) (unknown) Signed (units (unkno wn) date) unknown) (unknown) (no (unknown) (unknown) Smoking Status: (units (unknown) date) Never smoker unknown) (unknown) (no (unknown) (unknown) Social History (units (unknown) date) unknown) (unknown) (no (unknown) (unknown) Status post (units (un known) date) appendectomy (-1993) unknown) (unknown) (no (unknown) (unknown) Status post (units (un known) date) delivery unknown) (01/06/11) (unknown) (no (unknown) (unknown) Status post (units (un known) date) delivery unknown) (unknown) (no (unknown) (unknown) Status: Chronic (units (unknown) date) unknown) (unknown) (no (unknown) (unknown) Sulfa (Sulfonamide (units (unknown) date) Antibiotics) Allergy unknown) (Mild, Verified 09/02/22 15:44) (unknown) (no (unknown) (unknown) Support Person(s):: (unit s (unknown) date) Lloyd unknown) (unknown) (no (unknown) (unknown) Surgery date to be (units (unknown) date) requested for unknown) 09/09/22. Packet sent to dental scheduler. (unknown) (no (unknown) (unknown) Surgical History (units (unknown) date) (Updated 09/11/22 @ unknown) 09:01 by Rabia Gooden MD) (unknown) (no (unknown) (unknown) Surrogate (units (unkn own) date) ?: no unknown) (unknown) (no (unknown) (unknown) Symptoms since LMP: (unit s (unknown) date) Reports nausea, unknown) breast tenderness, urinary frequency, (unknown) (no (unknown) (unknown) Teratogen Exposures (unit s (unknown) date) since unknown) LMP/Conception: Denies prescription medications, (unknown) (no (unknown) (unknown) Testing Education (units (unknown) date) unknown) (unknown) (no (unknown) (unknown) Testing education (units (unknown) date) completed: Spina unknown) bifida testing and Cell Free DNA (unknown) (no (unknown) (unknown) Third Trimester (units (unknown) date) Education Checklist unknown) (unknown) (no (unknown) (unknown) This note may have (units (unknown) date) been all or unknown) partially generated using voice recognition (unknown) (no (unknown) (unknown) Thyroid: normal (units (unknown) date) unknown) (unknown) (no (unknown) (unknown) Tobacco + Substance (unit s (unknown) date) Use unknown) (unknown) (no (unknown) (unknown) Tobacco Status (units (unknown) date) unknown) (unknown) (no (unknown) (unknown) Trimester: (units (unk nown) date) unspecified unknown) trimester Qualified Code(s): O14.90 (unknown) (no (unknown) (unknown) Type of Delivery: (units (unknown) date) repeat C/S unknown) (unknown) (no (unknown) (unknown) Type(s) of (units (unk n) date) exercise: none unknown) (unknown) (no (unknown) (unknown) UProtein Movement (units (unknown) date) PreLabor FHR Fndl Ht unknown) Pres Edema Cerv Exam US/Comment Next Appt (unknown) (no (unknown) (unknown) Ultrasound (units (unk n) date) Details:: Dating u/s unknown) 02/10/22 - Single IUP. CRL consistent with 8w1d. (unknown) (no (unknown) (unknown) Ultrasound (units (unk n) date) unknown) (unknown) (no (unknown) (unknown) Unspecified (units (un known) date) pre-eclampsia, unknown) unspecified trimester (unknown) (no (unknown) (unknown) Varicella/chicken (units (unknown) date) pox status: previous unknown) disease (unknown) (no (unknown) (unknown) Visit Date: (units (un known) date) 02/10/22 Last unknown) Updated by: Rabia Gooden MD (unknown) (no (unknown) (unknown) Visit Date: (units (un known) date) 03/16/22 Last unknown) Updated by: Rabia Gooden MD (unknown) (no (unknown) (unknown) Visit Date: (units (un known) date) 04/15/22 Last unknown) Updated by: Rabia Gooden MD (unknown) (no (unknown) (unknown) Visit Date: (units (un known) date) 05/13/22 Last unknown) Updated by: Rabia Gooden MD (unknown) (no (unknown) (unknown) Visit Date: (units (un known) date) 06/17/22 Last unknown) Updated by: Rabia Gooden MD (unknown) (no (unknown) (unknown) Visit Date: (units (un known) date) 07/01/22 Last unknown) Updated by: Rabia Gooden MD (unknown) (no (unknown) (unknown) Visit Date: (units (un known) date) 07/15/22 Last unknown) Updated by: Rabia Gooden MD (unknown) (no (unknown) (unknown) Visit Date: (units (un known) date) 07/29/22 Last unknown) Updated by: Rabia Gooden MD (unknown) (no (unknown) (unknown) Visit Reasons: post (unit s (unknown) date) C section f/u unknown) (unknown) (no (unknown) (unknown) Vitals (units (unkno wn) date) unknown) (unknown) (no (unknown) (unknown) Vitamin K-Infant: (units (unknown) date) Yes unknown) (unknown) (no (unknown) (unknown) Vitamins and iron, (units (unknown) date) Diet and weight unknown) gain, Fish and mercury intake, Caffeine use, (unknown) (no (unknown) (unknown) WG (units (unkno wn) date) unknown) (unknown) (no (unknown) (unknown) Weight 186 lb (units ( unknown) date) unknown) (unknown) (no (unknown) (unknown) 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 works at (unknown) (no (unknown) (unknown) Yes no 130 27 (units ( unknown) date) absent glucola unknown) ordered 2 (unknown) (no (unknown) (unknown) Yes no 132 28 (units ( unknown) date) absent 2wks unknown) (unknown) (no (unknown) (unknown) Yes no 134 31 (units ( unknown) date) absent 2wks unknown) (unknown) (no (unknown) (unknown) Yes no 140 30 (units ( unknown) date) absent 2wks unknown) (unknown) (no (unknown) (unknown) Yes no 144 21 abse (units (unknown) date) unknown) (unknown) (no (unknown) (unknown) Yes yes 140 absent (units (unknown) date) unknown) (unknown) (no (unknown) (unknown) Zika virus (units (unk nown) date) exposure: No unknown) (unknown) (no (unknown) (unknown) [Rx Confirmed (units ( unknown) date) 09/02/22] unknown) (unknown) (no (unknown) (unknown) alcohol intake: (units (unknown) date) former unknown) (unknown) (no (unknown) (unknown) amoxicillin Allergy (unit s (unknown) date) (Mild, Verified unknown) 09/02/22 15:44) (unknown) (no (unknown) (unknown) antihypertensives. (units (unknown) date) Hopeful will be able unknown) to start weaning soon. 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 (units (unk nown) date) unknown) (unknown) (no (unknown) (unknown) azithromycin (units (u nknown) date) Allergy (Mild, unknown) Verified 09/02/22 15:44) (unknown) (no (unknown) (unknown) baby's father had a (unit s (unknown) date) child with unknown) defects not listed above and Denies Other (unknown) (no (unknown) (unknown) caffeine: Yes (units ( unknown) date) unknown) (unknown) (no (unknown) (unknown) carbon monox (units (u nknown) date) detector in home: unknown) Yes (unknown) (no (unknown) (unknown) changes. Mild (units ( unknown) date) headaches - usually unknown) relieved quickly, stressed at work. No RUQ (unknown) (no (unknown) (unknown) changes. Mother (units (unknown) date) with due unknown) to severe pre-eclampsia at 23wks. 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 Labs ordered today as below. (unknown) (no (unknown) (unknown) consistent with (units (unknown) date) PUPPS, but bile unknown) acids ordered to ensure no cholestasis as well. (unknown) (no (unknown) (unknown) current (units (unkno wn) date) occupational unknown) exposures/hazards: No (unknown) (no (unknown) (unknown) daily servings (units (unknown) date) fruits/ve-1 unknown) (unknown) (no (unknown) (unknown) delivery due to (units (unknown) date) prematurity. unknown) Reportedly with significant hemorrhage. (unknown) (no (unknown) (unknown) described, visit (units (unknown) date) schedule reviewed, unknown) ultrasounds policy reviewed, coverage 24 (unknown) (no (unknown) (unknown) discharge) (units (unk nown) date) unknown) (unknown) (no (unknown) (unknown) discussed, (units (unk nown) date) tuberculosis unknown) exposure discussed, CMV discussed, Toxoplasmosis (unknown) (no (unknown) (unknown) disorders, Denies (units (unknown) date) Cystic Fibrosis, unknown) Denies Mental Retardation/Autism, Denies (unknown) (no (unknown) (unknown) do you feel safe at (unit s (unknown) date) home: Yes unknown) (unknown) (no (unknown) (unknown) during the past (units (unknown) date) year weight has: unknown) remained stable (unknown) (no (unknown) (unknown) eclampsia - (units (un known) date) diagnosed 08/04 at unknown) 33w6d. Started Nifedipine 30mg XR. Plan on (unknown) (no (unknown) (unknown) education level: (units (unknown) date) other unknown) (unknown) (no (unknown) (unknown) erythema (units (unkno wn) date) unknown) (unknown) (no (unknown) (unknown) exposure, (units (unkn own) date) Medication use, unknown) Sauna/hot tub use, Dental care, Travel and Influenza (unknown) (no (unknown) (unknown) feet/calves. (units (u nknown) date) Discussed elevation, unknown) water, decreased salt intake. (unknown) (no (unknown) (unknown) fire extinguisher (units (unknown) date) in home: Yes unknown) (unknown) (no (unknown) (unknown) firearms in home: (units (unknown) date) No unknown) (unknown) (no (unknown) (unknown) have occurred. If (units (unknown) date) there are any unknown) questions, please contact the Medical Records (unknown) (no (unknown) (unknown) hemorrhage. Do not (units (unknown) date) have notes yet. unknown) Discharged on 08/14. (unknown) (no (unknown) (unknown) her Jeaneth (units (unkn own) date) unknown) (unknown) (no (unknown) (unknown) hours a day and (units (unknown) date) participation of unknown) father in care and office visits (unknown) (no (unknown) (unknown) household members: (units (unknown) date) significant other unknown) and children (unknown) (no (unknown) (unknown) housing: apartment (units (unknown) date) unknown) (unknown) (no (unknown) (unknown) hyperemesis 1st (units (unknown) date) trimester unknown) (unknown) (no (unknown) (unknown) irritability, (units ( unknown) date) bloating and other unknown) (unknown) (no (unknown) (unknown) labetalol 100 mg (units (unknown) date) tablet 400 mg PO BID unknown) #360 tabs 08/04/22 [Rx Confirmed 09/02/22] (unknown) (no (unknown) (unknown) labs today (units (unk nown) date) unknown) (unknown) (no (unknown) (unknown) latex Adverse (units ( unknown) date) Reaction (Mild, unknown) Verified 09/02/22 15:44) (unknown) (no (unknown) (unknown) likely transition (units (unknown) date) to alternatives. unknown) Recommend pt continue checking BPs at home (unknown) (no (unknown) (unknown) lives (units (unkno wn) date) independently: Yes unknown) (unknown) (no (unknown) (unknown) marital status: (units (unknown) date) unmarried,living unknown) together (unknown) (no (unknown) (unknown) may occur. (units (unk nown) date) Occasional unknown) wrong-word or 'sound-alike' substitutions may have (unknown) (no (unknown) (unknown) medication 110/90 (units (unknown) date) was the highest, unknown) usually diastolic in the 80s. No vision (unknown) (no (unknown) (unknown) mester if well (units (unknown) date) controlled (2nd unknown) trimester normal). Started baby aspirin at 12 (unknown) (no (unknown) (unknown) nifedipine 30 mg (units (unknown) date) tablet,extended unknown) release 24 hr 30 mg PO DAILY #30 tabs 08/04/22 (unknown) (no (unknown) (unknown) nt (units (unkno wn) date) unknown) (unknown) (no (unknown) (unknown) number of children: (unit s (unknown) date) 2 unknown) (unknown) (no (unknown) (unknown) occupational (units (u nknown) date) status: employed unknown) (unknown) (no (unknown) (unknown) occurred due to the (unit s (unknown) date) inherent limitations unknown) of voice recognition software. Please (unknown) (no (unknown) (unknown) other [place] (units (un known) date) unknown) (unknown) (no (unknown) (unknown) pain. Pt will (units ( unknown) date) complete 24hr unknown) protein this week. (unknown) (no (unknown) (unknown) pets and animals: (units (unknown) date) Yes (1 cat (pt is unknown) not managing litter box)) (unknown) (no (unknown) (unknown) precautions, (units (u nknown) date) Listeriosis unknown) prevention and Rubella Immunization (unknown) (no (unknown) (unknown) prenat.vits,miguel,min (unit s (unknown) date) -iron-folic 1 tab PO unknown) DAILY 01/27/22 [History Confirmed (unknown) (no (unknown) (unknown) production - total (units (unknown) date) 50mL when pumping. unknown) Pumping every 3 hours. He is feeding 50 (unknown) (no (unknown) (unknown) pt check her BPs at (unit s (unknown) date) home daily and bring unknown) log to next appt. (unknown) (no (unknown) (unknown) read the note (units ( unknown) date) carefully and unknown) recognize, using context, where these substitutions (unknown) (no (unknown) (unknown) regularly and bring (unit s (unknown) date) log to f/u appt in 2 unknown) weeks. Pt does have low milk supply, (unknown) (no (unknown) (unknown) salpingectomy for (units (unknown) date) contraception - if unknown) needing longer term antihypertensives will (unknown) (no (unknown) (unknown) seatbelt use: (units ( unknown) date) always unknown) (unknown) (no (unknown) (unknown) second hand (units (un known) date) exposure: No unknown) (unknown) (no (unknown) (unknown) seeing spots (units (u nknown) date) primarily later in unknown) the day. Increase Labetalol to 300mg BID. (unknown) (no (unknown) (unknown) severely elevated (units (unknown) date) BPs and unknown) pre-eclampsia. Pt was transferred to [place] for (unknown) (no (unknown) (unknown) software. Although (units (unknown) date) every effort is made unknown) to edit content, white sidewall tire buffer errors (unknown) (no (unknown) (unknown) soon. (units (unkno wn) date) unknown) (unknown) (no (unknown) (unknown) special fly (units ( unknown) date) needs: No unknown) (unknown) (no (unknown) (unknown) stress incontinence (unit s (unknown) date) unknown) (unknown) (no (unknown) (unknown) substance use type: (unit s (unknown) date) marijuana unknown) (unknown) (no (unknown) (unknown) to Labetalol with (units (unknown) date) . BP quite unknown) elevated today. Increase to 200mg daily (unknown) (no (unknown) (unknown) today. Acutely (units (unknown) date) worse today. BPs at unknown) home have been 120/70-80s. - Will obtain (unknown) (no (unknown) (unknown) today. BP (units (unkn own) date) reportedly in unknown) acceptable range at home. Will continue current (unknown) (no (unknown) (unknown) today. Baseline (units (unknown) date) pre-eclampsia labs unknown) ordered. (unknown) (no (unknown) (unknown) vaccine (units (unkno wn) date) unknown) (unknown) (no (unknown) (unknown) water heater temp (units (unknown) date) set < 120 deg: Yes unknown) (Will check and adjust if needed) (unknown) (no (unknown) (unknown) weekly labs. (units (u nknown) date) testing unknown) still. Delivery at 37wks (requested 08/26/22) (unknown) (no (unknown) (unknown) weeks. NSTs (units (un known) date) starting at 32wks. unknown) Serial growth ultrasounds (last 08/04). Pre (unknown) (no (unknown) (unknown) well-balanced diet: (unit s (unknown) date) about half the time unknown) (unknown) (no (unknown) (unknown) wks (units (unkno wn) date) unknown) (unknown) (no (unknown) (unknown) working on cutting (units (unknown) date) down salt intake. unknown) (unknown) (no (unknown) (unknown) working smoke (units ( unknown) date) detector in home: unknown) Yes Result panel 33 (unknown) (no (unknown) (unknown) (no value) (units (unk nown) date) unknown) (unknown) (no (unknown) (unknown) [id number] (units (unkno wn) date) unknown) (unknown) (no (unknown) (unknown) 09/14/22 (units (unkno wn) date) unknown) (unknown) (no (unknown) (unknown) Age/Sex: 32 / F (units (unknown) date) Date of Service: unknown) (unknown) (no (unknown) (unknown) Allergies (units (unkn own) date) unknown) (unknown) (no (unknown) (unknown) [facility] (units (unknown) date) Medicine unknown) (unknown) (no (unknown) (unknown) [place], [place] (units ( unknown) date) [id number] unknown) (unknown) (no (unknown) (unknown) Attending Dr: (units ( unknown) date) Rabia Gooden MD unknown) (unknown) (no (unknown) (unknown) Blister (units (unkno wn) date) unknown) (unknown) (no (unknown) (unknown) Chronic cough (units ( unknown) date) (-2000) unknown) (unknown) (no (unknown) (unknown) : 1990 (units (unknown) date) Acct:[id number] unknown) (unknown) (no (unknown) (unknown) Depression (units (unk nown) date) unknown) (unknown) (no (unknown) (unknown) Dept at (units (unkno wn) date) . unknown) (unknown) (no (unknown) (unknown) Diet and (units (unkno wn) date) Exercise unknown) (unknown) (no (unknown) (unknown) Documented By: (units (unknown) date) Rabia Gooden MD unknown) 09/14/22 1344 (unknown) (no (unknown) (unknown) Draft (units (unkno wn) date) unknown) (unknown) (no (unknown) (unknown) Family History (units (unknown) date) (Reviewed unknown) 07/30/22 @ 11:31 by Karina Gaytan DO) (unknown) (no (unknown) (unknown) Family Practice (units (unknown) date) Office Visit unknown) (unknown) (no (unknown) (unknown) Grandfather (units (un known) date) Hypertension unknown) (unknown) (no (unknown) (unknown) Grandmother Type (units (unknown) date) 2 diabetes unknown) mellitus (unknown) (no (unknown) (unknown) H/O bilateral (units ( unknown) date) salpingectomy unknown) (unknown) (no (unknown) (unknown) Hypertension (units (u nknown) date) unknown) (unknown) (no (unknown) (unknown) ITCHING (units (unkno wn) date) unknown) (unknown) (no (unknown) (unknown) Intake (units (unkno wn) date) unknown) (unknown) (no (unknown) (unknown) Last Menstural (units (unknown) date) Cycle + Details unknown) (unknown) (no (unknown) (unknown) Loc: [facility] (units (unkno wn) date) unknown) (unknown) (no (unknown) (unknown) Medical History (units (unknown) date) (Updated 08/04/22 unknown) @ 13:01 by Rabia Gooden MD) (unknown) (no (unknown) (unknown) Mother Age: 51 (units (unknown) date) Stroke unknown) (unknown) (no (unknown) (unknown) Other Menstrual (units (unknown) date) Period: Other unknown) (unknown) (no (unknown) (unknown) PFSH (units (unkno wn) date) unknown) (unknown) (no (unknown) (unknown) PUPP (pruritic (units (unknown) date) urticarial unknown) papules and plaques of ) (unknown) (no (unknown) (unknown) Patient: (units (unkno wn) date) Ga Hagan L unknown) MR#: [id number] (unknown) (no (unknown) (unknown) Plantar (units (unkno wn) date) fasciitis (-2015) unknown) (unknown) (no (unknown) (unknown) Psoriasis (units (unkn own) date) unknown) (unknown) (no (unknown) (unknown) RASH AND ITCHING (units (unknown) date) unknown) (unknown) (no (unknown) (unknown) RASH (units (unkno wn) date) unknown) (unknown) (no (unknown) (unknown) Rash (units (unkno wn) date) unknown) (unknown) (no (unknown) (unknown) Reason For Visit (units (unknown) date) unknown) (unknown) (no (unknown) (unknown) Safety (units (unkno wn) date) unknown) (unknown) (no (unknown) (unknown) Signed By: (units (unk nown) date) unknown) (unknown) (no (unknown) (unknown) Smoking Status: (units (unknown) date) Never smoker unknown) (unknown) (no (unknown) (unknown) Social History (units (unknown) date) unknown) (unknown) (no (unknown) (unknown) Status post (units (un known) date) appendectomy unknown) () (unknown) (no (unknown) (unknown) Status post (units (un known) date) delivery unknown) (01/06/11) (unknown) (no (unknown) (unknown) Status post (units (un known) date) delivery unknown) (unknown) (no (unknown) (unknown) Sulfa (units (unkno wn) date) (Sulfonamide unknown) Antibiotics) Allergy (Mild, Verified 09/02/22 15:44) (unknown) (no (unknown) (unknown) Surgical History (units (unknown) date) (Updated 09/11/22 unknown) @ 09:01 by Rabia Gooden MD) (unknown) (no (unknown) (unknown) This note may (units ( unknown) date) have been all or unknown) partially generated using voice recognition (unknown) (no (unknown) (unknown) Tobacco + (units (unkn own) date) Substance Use unknown) (unknown) (no (unknown) (unknown) Tobacco Status (units (unknown) date) unknown) (unknown) (no (unknown) (unknown) Type(s) of (units (unk nown) date) exercise: none unknown) (unknown) (no (unknown) (unknown) Visit Reasons: (units (unknown) date) BP Check unknown) (unknown) (no (unknown) (unknown) alcohol intake: (units (unknown) date) former unknown) (unknown) (no (unknown) (unknown) amoxicillin (units (un known) date) Allergy (Mild, unknown) Verified 09/02/22 15:44) (unknown) (no (unknown) (unknown) azithromycin (units (u nknown) date) Allergy (Mild, unknown) Verified 09/02/22 15:44) (unknown) (no (unknown) (unknown) caffeine: Yes (units ( unknown) date) unknown) (unknown) (no (unknown) (unknown) carbon monox (units (u nknown) date) detector in home: unknown) Yes (unknown) (no (unknown) (unknown) chlorhexidine (units ( unknown) date) Adverse Reaction unknown) (Intermediate, Verified 09/02/22 15:44) (unknown) (no (unknown) (unknown) current (units (unkno wn) date) occupational unknown) exposures/hazards : No (unknown) (no (unknown) (unknown) daily servings (units (unknown) date) fruits/ve-1 unknown) 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 in unknown) home: Yes (unknown) (no (unknown) (unknown) firearms in (units (un known) date) home: No unknown) (unknown) (no (unknown) (unknown) have occurred. (units (unknown) date) If there are any unknown) questions, please contact the Medical Records (unknown) (no (unknown) (unknown) household (units (unkn own) date) members: unknown) significant other and children (unknown) (no (unknown) (unknown) housing: (units (unkno wn) date) apartment unknown) (unknown) (no (unknown) (unknown) latex Adverse (units ( unknown) date) Reaction (Mild, unknown) Verified 09/02/22 15:44) (unknown) (no (unknown) (unknown) lives (units (unkno wn) date) independently: unknown) Yes (unknown) (no (unknown) (unknown) marital status: (units (unknown) date) unmarried,living unknown) together (unknown) (no (unknown) (unknown) may occur. (units (unk nown) date) Occasional unknown) wrong-word or 'sound-alike' substitutions may have (unknown) (no (unknown) (unknown) number of (units (unkn own) date) children: 2 unknown) (unknown) (no (unknown) (unknown) occupational (units (u nknown) date) status: employed unknown) (unknown) (no (unknown) (unknown) occurred due to (units (unknown) date) the inherent unknown) limitations of voice recognition software. Please (unknown) (no (unknown) (unknown) pets and (units (unkno wn) date) animals: Yes (1 unknown) cat (pt is not managing litter box)) (unknown) (no (unknown) (unknown) read the note (units ( unknown) date) carefully and unknown) recognize, using context, where these substitutions (unknown) (no (unknown) (unknown) seatbelt use: (units ( unknown) date) always unknown) (unknown) (no (unknown) (unknown) second hand (units (un known) date) exposure: No unknown) (unknown) (no (unknown) (unknown) software. (units (unkn own) date) Although every unknown) effort is made to edit content, white sidewall tire buffer errors (unknown) (no (unknown) (unknown) special fly (units ( unknown) date) needs: No unknown) (unknown) (no (unknown) (unknown) substance use (units ( unknown) date) type: marijuana unknown) (unknown) (no (unknown) (unknown) water heater (units (u nknown) date) temp set < 120 unknown) deg: Yes (Will check and adjust if needed) (unknown) (no (unknown) (unknown) well-balanced (units ( unknown) date) diet: about half unknown) the time (unknown) (no (unknown) (unknown) working smoke (units ( unknown) date) detector in home: unknown) Yes Result panel 34 (unknown) (no (unknown) (unknown) (no value) (units (unk nown) date) unknown) (unknown) (no (unknown) (unknown) [id number] (units (unkno wn) date) unknown) (unknown) (no (unknown) (unknown) 09/14/22 (units (unkno wn) date) unknown) (unknown) (no (unknown) (unknown) Add'l (units (unkno wn) date) Complaints: unknown) (unknown) (no (unknown) (unknown) Age/Sex: 32 / F (units (unknown) date) Date of Service: unknown) (unknown) (no (unknown) (unknown) Allergies (units (unkn own) date) unknown) (unknown) (no (unknown) (unknown) [facility] (units (unknown) date) Medicine unknown) (unknown) (no (unknown) (unknown) [place], [place] (units ( unknown) date) [id number] unknown) (unknown) (no (unknown) (unknown) Assessment + (units (u nknown) date) Plan unknown) (unknown) (no (unknown) (unknown) Attending Dr: (units ( unknown) date) Rabia Gooden MD unknown) (unknown) (no (unknown) (unknown) Blister (units (unkno wn) date) unknown) (unknown) (no (unknown) (unknown) Chronic cough (units ( unknown) date) (-2000) unknown) (unknown) (no (unknown) (unknown) : 1990 (units (unknown) date) Acct:[id number] unknown) (unknown) (no (unknown) (unknown) Depression (units (unk nown) date) unknown) (unknown) (no (unknown) (unknown) Dept at (units (unkno wn) date) . unknown) (unknown) (no (unknown) (unknown) Diet and (units (unkno wn) date) Exercise unknown) (unknown) (no (unknown) (unknown) Documented By: (units (unknown) date) Rabia Gooden MD unknown) 09/14/22 1344 (unknown) (no (unknown) (unknown) Draft (units (unkno wn) date) unknown) (unknown) (no (unknown) (unknown) Family History (units (unknown) date) (Reviewed unknown) 07/30/22 @ 11:31 by Karina Gaytan DO) (unknown) (no (unknown) (unknown) Family Practice (units (unknown) date) Office Visit unknown) (unknown) (no (unknown) (unknown) Grandfather (units (un known) date) Hypertension unknown) (unknown) (no (unknown) (unknown) Grandmother Type (units (unknown) date) 2 diabetes unknown) mellitus (unknown) (no (unknown) (unknown) H/O bilateral (units ( unknown) date) salpingectomy unknown) (unknown) (no (unknown) (unknown) HTN follow up (units ( unknown) date) unknown) (unknown) (no (unknown) (unknown) Hypertension (units (u nknown) date) unknown) (unknown) (no (unknown) (unknown) ITCHING (units (unkno wn) date) unknown) (unknown) (no (unknown) (unknown) Intake (units (unkno wn) date) unknown) (unknown) (no (unknown) (unknown) Last Menstural (units (unknown) date) Cycle + Details unknown) (unknown) (no (unknown) (unknown) Loc: [facility] (units (unkno wn) date) unknown) (unknown) (no (unknown) (unknown) Medical History (units (unknown) date) (Updated 08/04/22 unknown) @ 13:01 by Rabia Gooden MD) (unknown) (no (unknown) (unknown) Medications: (units (u nknown) date) unknown) (unknown) (no (unknown) (unknown) Mother Age: 51 (units (unknown) date) Stroke unknown) (unknown) (no (unknown) (unknown) New (units (unkno wn) date) unknown) (unknown) (no (unknown) (unknown) Note (units (unkno wn) date) unknown) (unknown) (no (unknown) (unknown) Note: (units (unkno wn) date) unknown) (unknown) (no (unknown) (unknown) Notes (units (unkno wn) date) unknown) (unknown) (no (unknown) (unknown) Other Menstrual (units (unknown) date) Period: Other unknown) (unknown) (no (unknown) (unknown) PFSH (units (unkno wn) date) unknown) (unknown) (no (unknown) (unknown) PUPP (pruritic (units (unknown) date) urticarial unknown) papules and plaques of ) (unknown) (no (unknown) (unknown) Patient's BP (units (u nknown) date) readings at home unknown) have been below 100 systolic/50-80 diastolic. She (unknown) (no (unknown) (unknown) Patient: (units (unkno wn) date) Ga Hagan L unknown) MR#: [id number] (unknown) (no (unknown) (unknown) Plantar (units (unkno wn) date) fasciitis (-2016) unknown) (unknown) (no (unknown) (unknown) Psoriasis (units (unkn own) date) unknown) (unknown) (no (unknown) (unknown) RASH AND ITCHING (units (unknown) date) unknown) (unknown) (no (unknown) (unknown) RASH (units (unkno wn) date) unknown) (unknown) (no (unknown) (unknown) Rash (units (unkno wn) date) unknown) (unknown) (no (unknown) (unknown) Reason For Visit (units (unknown) date) unknown) (unknown) (no (unknown) (unknown) Safety (units (unkno wn) date) unknown) (unknown) (no (unknown) (unknown) Signed By: (units (unk nown) date) unknown) (unknown) (no (unknown) (unknown) Smoking Status: (units (unknown) date) Never smoker unknown) (unknown) (no (unknown) (unknown) Social History (units (unknown) date) unknown) (unknown) (no (unknown) (unknown) Status post (units (un known) date) appendectomy unknown) () (unknown) (no (unknown) (unknown) Status post (units (un known) date) delivery unknown) (01/06/11) (unknown) (no (unknown) (unknown) Status post (units (un known) date) delivery unknown) (unknown) (no (unknown) (unknown) Sulfa (units (unkno wn) date) (Sulfonamide unknown) Antibiotics) Allergy (Mild, Verified 09/02/22 15:44) (unknown) (no (unknown) (unknown) Surgical History (units (unknown) date) (Updated 09/11/22 unknown) @ 09:01 by Rabia Gooden MD) (unknown) (no (unknown) (unknown) This note may (units ( unknown) date) have been all or unknown) partially generated using voice recognition (unknown) (no (unknown) (unknown) Tobacco + (units (unkn own) date) Substance Use unknown) (unknown) (no (unknown) (unknown) Tobacco Status (units (unknown) date) unknown) (unknown) (no (unknown) (unknown) Type(s) of (units (unk nown) date) exercise: none unknown) (unknown) (no (unknown) (unknown) Visit Reasons: (units (unknown) date) BP Check unknown) (unknown) (no (unknown) (unknown) alcohol intake: (units (unknown) date) former unknown) (unknown) (no (unknown) (unknown) amoxicillin (units (un known) date) Allergy (Mild, unknown) Verified 09/02/22 15:44) (unknown) (no (unknown) (unknown) azithromycin (units (u nknown) date) Allergy (Mild, unknown) Verified 09/02/22 15:44) (unknown) (no (unknown) (unknown) caffeine: Yes (units ( unknown) date) unknown) (unknown) (no (unknown) (unknown) carbon monox (units (u nknown) date) detector in home: unknown) Yes (unknown) (no (unknown) (unknown) chlorhexidine (units ( unknown) date) Adverse Reaction unknown) (Intermediate, Verified 09/02/22 15:44) (unknown) (no (unknown) (unknown) current (units (unkno wn) date) occupational unknown) exposures/hazards : No (unknown) (no (unknown) (unknown) daily servings (units (unknown) date) fruits/ve-1 unknown) (unknown) (no (unknown) (unknown) do you feel safe (units (unknown) date) at home: Yes unknown) (unknown) (no (unknown) (unknown) does feel (units (unkn own) date) lightheaded and unknown) is afraid she may drop her baby if it gets worse. She (unknown) (no (unknown) (unknown) during the past (units (unknown) date) year weight has: unknown) remained stable (unknown) (no (unknown) (unknown) education level: (units (unknown) date) other unknown) (unknown) (no (unknown) (unknown) fire (units (unkno wn) date) extinguisher in unknown) home: Yes (unknown) (no (unknown) (unknown) firearms in (units (un known) date) home: No unknown) (unknown) (no (unknown) (unknown) has had chronic (units (unknown) date) hypertension unknown) which is being treated with nifedipine and (unknown) (no (unknown) (unknown) have occurred. (units (unknown) date) If there are any unknown) questions, please contact the Medical Records (unknown) (no (unknown) (unknown) household (units (unkn own) date) members: unknown) significant other and children (unknown) (no (unknown) (unknown) housing: (units (unkno wn) date) apartment unknown) (unknown) (no (unknown) (unknown) labetolol since (units (unknown) date) she was . unknown) (unknown) (no (unknown) (unknown) latex Adverse (units ( unknown) date) Reaction (Mild, unknown) Verified 09/02/22 15:44) (unknown) (no (unknown) (unknown) lives (units (unkno wn) date) independently: unknown) Yes (unknown) (no (unknown) (unknown) marital status: (units (unknown) date) unmarried,living unknown) together (unknown) (no (unknown) (unknown) may occur. (units (unk nown) date) Occasional unknown) wrong-word or 'sound-alike' substitutions may have (unknown) (no (unknown) (unknown) number of (units (unkn own) date) children: 2 unknown) (unknown) (no (unknown) (unknown) occupational (units (u nknown) date) status: employed unknown) (unknown) (no (unknown) (unknown) occurred due to (units (unknown) date) the inherent unknown) limitations of voice recognition software. Please (unknown) (no (unknown) (unknown) pets and (units (unkno wn) date) animals: Yes (1 unknown) cat (pt is not managing litter box)) (unknown) (no (unknown) (unknown) read the note (units ( unknown) date) carefully and unknown) recognize, using context, where these substitutions (unknown) (no (unknown) (unknown) seatbelt use: (units ( unknown) date) always unknown) (unknown) (no (unknown) (unknown) second hand (units (un known) date) exposure: No unknown) (unknown) (no (unknown) (unknown) sertraline 25 mg (units (unknown) date) PO DAILY 30 tabs unknown) 3RF (unknown) (no (unknown) (unknown) software. (units (unkn own) date) Although every unknown) effort is made to edit content, white sidewall tire buffer errors (unknown) (no (unknown) (unknown) special fly (units ( unknown) date) needs: No unknown) (unknown) (no (unknown) (unknown) substance use (units ( unknown) date) type: marijuana unknown) (unknown) (no (unknown) (unknown) water heater (units (u nknown) date) temp set < 120 unknown) deg: Yes (Will check and adjust if needed) (unknown) (no (unknown) (unknown) well-balanced (units ( unknown) date) diet: about half unknown) the time (unknown) (no (unknown) (unknown) working smoke (units ( unknown) date) detector in home: unknown) Yes Result panel 35 (unknown) (no (unknown) (unknown) (no value) (units (unk nown) date) unknown) (unknown) (no (unknown) (unknown) (1) Essential (units ( unknown) date) hypertension: unknown) (unknown) (no (unknown) (unknown) (2) Post (units (unknown) date) depression: unknown) (unknown) (no (unknown) (unknown) [id number] (units (unkno wn) date) unknown) (unknown) (no (unknown) (unknown) 09/14/22 (units (unkno wn) date) unknown) (unknown) (no (unknown) (unknown) Add'l Complaints: (units (unknown) date) unknown) (unknown) (no (unknown) (unknown) Age/Sex: 32 / F (units (unknown) date) Date of Service: unknown) (unknown) (no (unknown) (unknown) Allergies (units (unkn own) date) unknown) (unknown) (no (unknown) (unknown) [facility] (units (unknown) date) Medicine unknown) (unknown) (no (unknown) (unknown) [place], [place] (units ( unknown) date) [id number] unknown) (unknown) (no (unknown) (unknown) Assessment + Plan (units (unknown) date) unknown) (unknown) (no (unknown) (unknown) Assessment and (units (unknown) date) Plan: unknown) (unknown) (no (unknown) (unknown) Attending Dr: (units ( unknown) date) Rabia Gooden MD unknown) (unknown) (no (unknown) (unknown) Auscultation: (units ( unknown) date) clear to unknown) auscultation bilaterally (unknown) (no (unknown) (unknown) Blister (units (unkno wn) date) unknown) (unknown) (no (unknown) (unknown) Card (units (unkno wn) date) unknown) (unknown) (no (unknown) (unknown) Cardio (units (unkno wn) date) unknown) (unknown) (no (unknown) (unknown) Chronic cough (units ( unknown) date) (-2000) unknown) (unknown) (no (unknown) (unknown) Const (units (unkno wn) date) unknown) (unknown) (no (unknown) (unknown) : 1990 (units (unknown) date) Acct:[id number] unknown) (unknown) (no (unknown) (unknown) Denies cough and (units (unknown) date) Denies dyspnea unknown) (unknown) (no (unknown) (unknown) Denies difficulty (units (unknown) date) voiding unknown) (unknown) (no (unknown) (unknown) Depression (units (unk nown) date) unknown) (unknown) (no (unknown) (unknown) Dept at (units (unkno wn) date) . unknown) (unknown) (no (unknown) (unknown) Diet and Exercise (units (unknown) date) unknown) (unknown) (no (unknown) (unknown) Discussed (units (unkn own) date) different options. unknown) Reassured by no thoughts of harming self or others (unknown) (no (unknown) (unknown) Documented By: (units (unknown) date) Rabia Gooden MD unknown) 09/14/22 1344 (unknown) (no (unknown) (unknown) Draft (units (unkno wn) date) unknown) (unknown) (no (unknown) (unknown) Effort + (units (unkno wn) date) Inspection: normal unknown) respiratory effort and no cough (unknown) (no (unknown) (unknown) Endo (units (unkno wn) date) unknown) (unknown) (no (unknown) (unknown) Exam (units (unkno wn) date) unknown) (unknown) (no (unknown) (unknown) Family History (units (unknown) date) (Reviewed 07/30/22 unknown) @ 11:31 by Karina Gaytan DO) (unknown) (no (unknown) (unknown) Family Practice (units (unknown) date) Office Visit unknown) (unknown) (no (unknown) (unknown) GI (units (unkno wn) date) unknown) (unknown) (no (unknown) (unknown) (units (unkno wn) date) unknown) (unknown) (no (unknown) (unknown) Gastrointestinal: (units (unknown) date) Denies change in unknown) stool character (unknown) (no (unknown) (unknown) General: (units (unkno wn) date) cooperative and unknown) healthy appearing (unknown) (no (unknown) (unknown) Grandfather (units (un known) date) Hypertension unknown) (unknown) (no (unknown) (unknown) Grandmother Type (units (unknown) date) 2 diabetes unknown) mellitus (unknown) (no (unknown) (unknown) H/O bilateral (units ( unknown) date) salpingectomy unknown) (unknown) (no (unknown) (unknown) HTN follow up (units ( unknown) date) unknown) (unknown) (no (unknown) (unknown) Heart Sounds: S1 (units (unknown) date) normal and S2 unknown) normal (unknown) (no (unknown) (unknown) Hypertension (units (u nknown) date) unknown) (unknown) (no (unknown) (unknown) ITCHING (units (unkno wn) date) unknown) (unknown) (no (unknown) (unknown) Intake (units (unkno wn) date) unknown) (unknown) (no (unknown) (unknown) Last Menstural (units (unknown) date) Cycle + Details unknown) (unknown) (no (unknown) (unknown) Loc: [facility] (units (unkno wn) date) unknown) (unknown) (no (unknown) (unknown) Medical History (units (unknown) date) (Updated 08/04/22 unknown) @ 13:01 by Rabia Gooden MD) (unknown) (no (unknown) (unknown) Medications: (units (u nknown) date) unknown) (unknown) (no (unknown) (unknown) Mother Age: 51 (units (unknown) date) Stroke unknown) (unknown) (no (unknown) (unknown) Neuro (units (unkno wn) date) unknown) (unknown) (no (unknown) (unknown) Neurologic: (units (un known) date) Denies frequent unknown) falls (unknown) (no (unknown) (unknown) New (units (unkno wn) date) unknown) (unknown) (no (unknown) (unknown) Note (units (unkno wn) date) unknown) (unknown) (no (unknown) (unknown) Note: (units (unkno wn) date) unknown) (unknown) (no (unknown) (unknown) Notes (units (unkno wn) date) unknown) (unknown) (no (unknown) (unknown) Other Menstrual (units (unknown) date) Period: Other unknown) (unknown) (no (unknown) (unknown) PFSH (units (unkno wn) date) unknown) (unknown) (no (unknown) (unknown) PUPP (pruritic (units (unknown) date) urticarial papules unknown) and plaques of ) (unknown) (no (unknown) (unknown) Patient reports (units (unknown) date) feeling unknown) lightheaded and her BP has been low at home. We (unknown) (no (unknown) (unknown) Patient's BP (units (u nknown) date) readings at home unknown) have been below 100 systolic/50-80 diastolic. She (unknown) (no (unknown) (unknown) Patient: (units (unkno wn) date) Ga Hagan L unknown) MR#: [id number] (unknown) (no (unknown) (unknown) Plantar fasciitis (units (unknown) date) (-2016) unknown) (unknown) (no (unknown) (unknown) Psoriasis (units (unkn own) date) unknown) (unknown) (no (unknown) (unknown) RASH AND ITCHING (units (unknown) date) unknown) (unknown) (no (unknown) (unknown) RASH (units (unkno wn) date) unknown) (unknown) (no (unknown) (unknown) ROS (units (unkno wn) date) unknown) (unknown) (no (unknown) (unknown) Rash (units (unkno wn) date) unknown) (unknown) (no (unknown) (unknown) Rate: regular (units ( unknown) date) rate unknown) (unknown) (no (unknown) (unknown) Reason For Visit (units (unknown) date) unknown) (unknown) (no (unknown) (unknown) Reports (units (unkno wn) date) difficulty unknown) sleeping, Reports fatigue, Denies fever(s), Denies frequent (unknown) (no (unknown) (unknown) Reports fatigue (units (unknown) date) unknown) (unknown) (no (unknown) (unknown) Reports (units (unkno wn) date) lightheadedness unknown) and Denies dyspnea (unknown) (no (unknown) (unknown) Resp (units (unkno wn) date) unknown) (unknown) (no (unknown) (unknown) Rhythm: regular (units (unknown) date) rhythm unknown) (unknown) (no (unknown) (unknown) Safety (units (unkno wn) date) unknown) (unknown) (no (unknown) (unknown) She also reports (units (unknown) date) post unknown) depression that she would like help dealing with. (unknown) (no (unknown) (unknown) She has not been (units (unknown) date) sleeping well, has unknown) low appetite, and is feeling sad and anxious (unknown) (no (unknown) (unknown) Signed By: (units (unk nown) date) unknown) (unknown) (no (unknown) (unknown) Smoking Status: (units (unknown) date) Never smoker unknown) (unknown) (no (unknown) (unknown) Social History (units (unknown) date) unknown) (unknown) (no (unknown) (unknown) Status post (units (un known) date) appendectomy unknown) () (unknown) (no (unknown) (unknown) Status post (units (un known) date) delivery unknown) (01/06/11) (unknown) (no (unknown) (unknown) Status post (units (un known) date) delivery unknown) (unknown) (no (unknown) (unknown) Status: Chronic (units (unknown) date) unknown) (unknown) (no (unknown) (unknown) Sulfa (units (unkno wn) date) (Sulfonamide unknown) Antibiotics) Allergy (Mild, Verified 09/02/22 15:44) (unknown) (no (unknown) (unknown) Surgical History (units (unknown) date) (Updated 09/11/22 unknown) @ 09:01 by Rabia Gooden MD) (unknown) (no (unknown) (unknown) This note may (units ( unknown) date) have been all or unknown) partially generated using voice recognition (unknown) (no (unknown) (unknown) Tobacco + (units (unkn own) date) Substance Use unknown) (unknown) (no (unknown) (unknown) Tobacco Status (units (unknown) date) unknown) (unknown) (no (unknown) (unknown) Type(s) of (units (unk nown) date) exercise: none unknown) (unknown) (no (unknown) (unknown) Visit Reasons: BP (units (unknown) date) Check unknown) (unknown) (no (unknown) (unknown) Zoloft. Follow up (units (unknown) date) in 6 weeks or unknown) earlier if needed. (unknown) (no (unknown) (unknown) alcohol intake: (units (unknown) date) former unknown) (unknown) (no (unknown) (unknown) amoxicillin (units (un known) date) Allergy (Mild, unknown) Verified 09/02/22 15:44) (unknown) (no (unknown) (unknown) another low dose (units (unknown) date) agent now that she unknown) is no longer desiring future pregnancies. We (unknown) (no (unknown) (unknown) are not a formal (units (unknown) date) therapist and she unknown) would like to talk to one. (unknown) (no (unknown) (unknown) at times. She had (units (unknown) date) unknown) depression and psychosis with her previous (unknown) (no (unknown) (unknown) azithromycin (units (u nknown) date) Allergy (Mild, unknown) Verified 09/02/22 15:44) (unknown) (no (unknown) (unknown) but patient still (units (unknown) date) not sleeping well, unknown) feeling sad, and has low appetite. Advised (unknown) (no (unknown) (unknown) caffeine: Yes (units ( unknown) date) unknown) (unknown) (no (unknown) (unknown) carbon monox (units (u nknown) date) detector in home: unknown) Yes (unknown) (no (unknown) (unknown) chills, changes (units (unknown) date) in bowel or unknown) bladder function. (unknown) (no (unknown) (unknown) chlorhexidine (units ( unknown) date) Adverse Reaction unknown) (Intermediate, Verified 09/02/22 15:44) (unknown) (no (unknown) (unknown) counseling and (units (unknown) date) that was helpful. unknown) She currently is talking to someone but they (unknown) (no (unknown) (unknown) current (units (unkno wn) date) occupational unknown) exposures/hazards: No (unknown) (no (unknown) (unknown) daily servings (units (unknown) date) fruits/ve-1 unknown) (unknown) (no (unknown) (unknown) discussed weaning (units (unknown) date) off vs completely unknown) stopping her current meds and starting (unknown) (no (unknown) (unknown) do you feel safe (units (unknown) date) at home: Yes unknown) (unknown) (no (unknown) (unknown) does feel (units (unkno wn) date) lightheaded and is unknown) trying to stay hydrated. She is afraid she may drop (unknown) (no (unknown) (unknown) during the past (units (unknown) date) year weight has: unknown) remained stable (unknown) (no (unknown) (unknown) education level: (units (unknown) date) other unknown) (unknown) (no (unknown) (unknown) elevated, will (units ( unknown) date) consider a unknown) different medication. She is advised to take her BP at (unknown) (no (unknown) (unknown) falls and Reports (units (unknown) date) poor appetite unknown) (unknown) (no (unknown) (unknown) fire extinguisher (units (unknown) date) in home: Yes unknown) (unknown) (no (unknown) (unknown) firearms in home: (units (unknown) date) No unknown) (unknown) (no (unknown) (unknown) have occurred. If (units (unknown) date) there are any unknown) questions, please contact the Medical Records (unknown) (no (unknown) (unknown) her baby if it (units (unknown) date) gets worse. She unknown) has had chronic hypertension which is being (unknown) (no (unknown) (unknown) home and let us (units (unknown) date) know how it looks unknown) within 1 week. (unknown) (no (unknown) (unknown) household (units (unkn own) date) members: unknown) significant other and children (unknown) (no (unknown) (unknown) housing: (units (unkno wn) date) apartment unknown) (unknown) (no (unknown) (unknown) latex Adverse (units ( unknown) date) Reaction (Mild, unknown) Verified 09/02/22 15:44) (unknown) (no (unknown) (unknown) lives (units (unkno wn) date) independently: Yes unknown) (unknown) (no (unknown) (unknown) marital status: (units (unknown) date) unmarried,living unknown) together (unknown) (no (unknown) (unknown) may occur. (units (unk nown) date) Occasional unknown) wrong-word or 'sound-alike' substitutions may have (unknown) (no (unknown) (unknown) number of (units (unkn own) date) children: 2 unknown) (unknown) (no (unknown) (unknown) occupational (units (u nknown) date) status: employed unknown) (unknown) (no (unknown) (unknown) occurred due to (units (unknown) date) the inherent unknown) limitations of voice recognition software. Please (unknown) (no (unknown) (unknown) pets and animals: (units (unknown) date) Yes (1 cat (pt is unknown) not managing litter box)) (unknown) (no (unknown) (unknown) but (units (u nknown) date) denies any unknown) thoughts of harming herself or others at this time. She (unknown) (no (unknown) (unknown) read the note (units ( unknown) date) carefully and unknown) recognize, using context, where these substitutions (unknown) (no (unknown) (unknown) seatbelt use: (units ( unknown) date) always unknown) (unknown) (no (unknown) (unknown) second hand (units (un known) date) exposure: No unknown) (unknown) (no (unknown) (unknown) sertraline 25 mg (units (unknown) date) PO DAILY 30 tabs unknown) 3RF (unknown) (no (unknown) (unknown) software. (units (unkn own) date) Although every unknown) effort is made to edit content, white sidewall tire buffer errors (unknown) (no (unknown) (unknown) special fly (units ( unknown) date) needs: No unknown) (unknown) (no (unknown) (unknown) substance use (units ( unknown) date) type: marijuana unknown) (unknown) (no (unknown) (unknown) to 200mg (units (unkno wn) date) Labetolol TID. If unknown) still elevated will do labetolol 200mg BID. If still (unknown) (no (unknown) (unknown) to call insurance (units (unknown) date) to see which unknown) counseling services are covered. Also will start (unknown) (no (unknown) (unknown) treated with (units (un known) date) nifedipine and unknown) labetolol since she was . She denies fevers, (unknown) (no (unknown) (unknown) was on fluoxetine (units (unknown) date) in the past but unknown) felt like it made her 'numb.' She also used (unknown) (no (unknown) (unknown) water heater temp (units (unknown) date) set < 120 deg: Yes unknown) (Will check and adjust if needed) (unknown) (no (unknown) (unknown) well-balanced (units ( unknown) date) diet: about half unknown) the time (unknown) (no (unknown) (unknown) will stop her (units (u nknown) date) nifedipine at this unknown) time. If her systolic BP is <120, she is to go (unknown) (no (unknown) (unknown) working smoke (units ( unknown) date) detector in home: unknown) Yes Result panel 36 (unknown) (no (unknown) (unknown) (no value) (units (unk nown) date) unknown) (unknown) (no (unknown) (unknown) (1) Essential (units ( unknown) date) hypertension: unknown) (unknown) (no (unknown) (unknown) (2) Post (units (unknown) date) depression: unknown) (unknown) (no (unknown) (unknown) [id number] (units (unkno wn) date) unknown) (unknown) (no (unknown) (unknown) 09/14/22 (units (unkno wn) date) unknown) (unknown) (no (unknown) (unknown) Add'l Complaints: (units (unknown) date) unknown) (unknown) (no (unknown) (unknown) Age/Sex: 32 / F (units (unknown) date) Date of Service: unknown) (unknown) (no (unknown) (unknown) Allergies (units (unkn own) date) unknown) (unknown) (no (unknown) (unknown) [facility] (units (unknown) date) [facility] unknown) (unknown) (no (unknown) (unknown) [place], [place] (units ( unknown) date) [id number] unknown) (unknown) (no (unknown) (unknown) Assessment + Plan (units (unknown) date) unknown) (unknown) (no (unknown) (unknown) Assessment and (units (unknown) date) Plan: unknown) (unknown) (no (unknown) (unknown) Attending Dr: (units ( unknown) date) Rabia Gooden MD unknown) (unknown) (no (unknown) (unknown) Auscultation: (units ( unknown) date) clear to unknown) auscultation bilaterally (unknown) (no (unknown) (unknown) Blister (units (unkno wn) date) unknown) (unknown) (no (unknown) (unknown) Card (units (unkno wn) date) unknown) (unknown) (no (unknown) (unknown) Cardio (units (unkno wn) date) unknown) (unknown) (no (unknown) (unknown) Chronic cough (units ( unknown) date) () unknown) (unknown) (no (unknown) (unknown) Const (units (unkno wn) date) unknown) (unknown) (no (unknown) (unknown) : 1990 (units (unknown) date) Acct:[id number] unknown) (unknown) (no (unknown) (unknown) Denies cough and (units (unknown) date) Denies dyspnea unknown) (unknown) (no (unknown) (unknown) Denies difficulty (units (unknown) date) voiding unknown) (unknown) (no (unknown) (unknown) Depression (units (unk nown) date) unknown) (unknown) (no (unknown) (unknown) Dept at (units (unkno wn) date) . unknown) (unknown) (no (unknown) (unknown) Diet and Exercise (units (unknown) date) unknown) (unknown) (no (unknown) (unknown) Discussed (units (unkn own) date) different options. unknown) Reassured by no thoughts of harming self or others (unknown) (no (unknown) (unknown) Documented By: (units (unknown) date) Rabia Gooden MD unknown) 09/14/22 1344 (unknown) (no (unknown) (unknown) Draft (units (unkno wn) date) unknown) (unknown) (no (unknown) (unknown) Effort + (units (unkno wn) date) Inspection: normal unknown) respiratory effort and no cough (unknown) (no (unknown) (unknown) Endo (units (unkno wn) date) unknown) (unknown) (no (unknown) (unknown) Exam (units (unkno wn) date) unknown) (unknown) (no (unknown) (unknown) Family History (units (unknown) date) (Reviewed 07/30/22 unknown) @ 11:31 by Karina Gaytan DO) (unknown) (no (unknown) (unknown) Family Practice (units (unknown) date) Office Visit unknown) (unknown) (no (unknown) (unknown) GI (units (unkno wn) date) unknown) (unknown) (no (unknown) (unknown) (units (unkno wn) date) unknown) (unknown) (no (unknown) (unknown) Gastrointestinal: (units (unknown) date) Denies change in unknown) stool character (unknown) (no (unknown) (unknown) General: (units (unkno wn) date) cooperative and unknown) healthy appearing (unknown) (no (unknown) (unknown) Grandfather (units (un known) date) Hypertension unknown) (unknown) (no (unknown) (unknown) Grandmother Type (units (unknown) date) 2 diabetes unknown) mellitus (unknown) (no (unknown) (unknown) H/O bilateral (units ( unknown) date) salpingectomy unknown) (unknown) (no (unknown) (unknown) HTN follow up (units ( unknown) date) unknown) (unknown) (no (unknown) (unknown) Heart Sounds: S1 (units (unknown) date) normal and S2 unknown) normal (unknown) (no (unknown) (unknown) Hypertension (units (u nknown) date) unknown) (unknown) (no (unknown) (unknown) ITCHING (units (unkno wn) date) unknown) (unknown) (no (unknown) (unknown) Intake (units (unkno wn) date) unknown) (unknown) (no (unknown) (unknown) Last Menstural (units (unknown) date) Cycle + Details unknown) (unknown) (no (unknown) (unknown) Loc: [facility] (units (unkno wn) date) unknown) (unknown) (no (unknown) (unknown) Medical History (units (unknown) date) (Updated 08/04/22 unknown) @ 13:01 by Rabia Gooden MD) (unknown) (no (unknown) (unknown) Mother Age: 51 (units (unknown) date) Stroke unknown) (unknown) (no (unknown) (unknown) Neuro (units (unkno wn) date) unknown) (unknown) (no (unknown) (unknown) Neurologic: (units (un known) date) Denies frequent unknown) falls (unknown) (no (unknown) (unknown) Note (units (unkno wn) date) unknown) (unknown) (no (unknown) (unknown) Note: (units (unkno wn) date) unknown) (unknown) (no (unknown) (unknown) Notes (units (unkno wn) date) unknown) (unknown) (no (unknown) (unknown) Other Menstrual (units (unknown) date) Period: Other unknown) (unknown) (no (unknown) (unknown) PFSH (units (unkno wn) date) unknown) (unknown) (no (unknown) (unknown) PUPP (pruritic (units (unknown) date) urticarial papules unknown) and plaques of ) (unknown) (no (unknown) (unknown) Patient reports (units (unknown) date) feeling unknown) lightheaded and her BP has been low at home. We (unknown) (no (unknown) (unknown) Patient's BP (units (u nknown) date) readings at home unknown) have been below 100 systolic/50-80 diastolic. She (unknown) (no (unknown) (unknown) Patient: (units (unkno wn) date) Ga Hagan unknown) MR#: [id number] (unknown) (no (unknown) (unknown) Plantar fasciitis (units (unknown) date) (-2016) unknown) (unknown) (no (unknown) (unknown) Psoriasis (units (unkn own) date) unknown) (unknown) (no (unknown) (unknown) RASH AND ITCHING (units (unknown) date) unknown) (unknown) (no (unknown) (unknown) RASH (units (unkno wn) date) unknown) (unknown) (no (unknown) (unknown) ROS (units (unkno wn) date) unknown) (unknown) (no (unknown) (unknown) Rash (units (unkno wn) date) unknown) (unknown) (no (unknown) (unknown) Rate: regular (units ( unknown) date) rate unknown) (unknown) (no (unknown) (unknown) Reason For Visit (units (unknown) date) unknown) (unknown) (no (unknown) (unknown) Reports (units (unkno wn) date) difficulty unknown) sleeping, Reports fatigue, Denies fever(s), Denies frequent (unknown) (no (unknown) (unknown) Reports fatigue (units (unknown) date) unknown) (unknown) (no (unknown) (unknown) Reports (units (unkno wn) date) lightheadedness unknown) and Denies dyspnea (unknown) (no (unknown) (unknown) Resp (units (unkno wn) date) unknown) (unknown) (no (unknown) (unknown) Rhythm: regular (units (unknown) date) rhythm unknown) (unknown) (no (unknown) (unknown) Safety (units (unkno wn) date) unknown) (unknown) (no (unknown) (unknown) She also reports (units (unknown) date) post unknown) depression that she would like help dealing with. (unknown) (no (unknown) (unknown) She has not been (units (unknown) date) sleeping well, has unknown) low appetite, and is feeling sad and anxious (unknown) (no (unknown) (unknown) Signed By: (units (unk nown) date) unknown) (unknown) (no (unknown) (unknown) Smoking Status: (units (unknown) date) Never smoker unknown) (unknown) (no (unknown) (unknown) Social History (units (unknown) date) unknown) (unknown) (no (unknown) (unknown) Status post (units (un known) date) appendectomy unknown) (-1993) (unknown) (no (unknown) (unknown) Status post (units (un known) date) delivery unknown) (01/06/11) (unknown) (no (unknown) (unknown) Status post (units (un known) date) delivery unknown) (unknown) (no (unknown) (unknown) Status: Chronic (units (unknown) date) unknown) (unknown) (no (unknown) (unknown) Sulfa (units (unkno wn) date) (Sulfonamide unknown) Antibiotics) Allergy (Mild, Verified 09/02/22 15:44) (unknown) (no (unknown) (unknown) Surgical History (units (unknown) date) (Updated 09/11/22 unknown) @ 09:01 by Rabia Gooden MD) (unknown) (no (unknown) (unknown) This note may (units ( unknown) date) have been all or unknown) partially generated using voice recognition (unknown) (no (unknown) (unknown) Tobacco + (units (unkn own) date) Substance Use unknown) (unknown) (no (unknown) (unknown) Tobacco Status (units (unknown) date) unknown) (unknown) (no (unknown) (unknown) Type(s) of (units (unk nown) date) exercise: none unknown) (unknown) (no (unknown) (unknown) Visit Reasons: BP (units (unknown) date) Check unknown) (unknown) (no (unknown) (unknown) Zoloft. Follow up (units (unknown) date) in 6 weeks or unknown) earlier if needed. (unknown) (no (unknown) (unknown) alcohol intake: (units (unknown) date) former unknown) (unknown) (no (unknown) (unknown) amoxicillin (units (un known) date) Allergy (Mild, unknown) Verified 09/02/22 15:44) (unknown) (no (unknown) (unknown) another low dose (units (unknown) date) agent now that she unknown) is no longer desiring future pregnancies. We (unknown) (no (unknown) (unknown) are not a formal (units (unknown) date) therapist and she unknown) would like to talk to one. (unknown) (no (unknown) (unknown) at times. She had (units (unknown) date) unknown) depression and psychosis with her previous (unknown) (no (unknown) (unknown) azithromycin (units (u nknown) date) Allergy (Mild, unknown) Verified 09/02/22 15:44) (unknown) (no (unknown) (unknown) but patient still (units (unknown) date) not sleeping well, unknown) feeling sad, and has low appetite. Advised (unknown) (no (unknown) (unknown) caffeine: Yes (units ( unknown) date) unknown) (unknown) (no (unknown) (unknown) carbon monox (units (u nknown) date) detector in home: unknown) Yes (unknown) (no (unknown) (unknown) chills, changes (units (unknown) date) in bowel or unknown) bladder function. (unknown) (no (unknown) (unknown) chlorhexidine (units ( unknown) date) Adverse Reaction unknown) (Intermediate, Verified 09/02/22 15:44) (unknown) (no (unknown) (unknown) counseling and (units (unknown) date) that was helpful. unknown) She currently is talking to someone but they (unknown) (no (unknown) (unknown) current (units (unkno wn) date) occupational unknown) exposures/hazards: No (unknown) (no (unknown) (unknown) daily servings (units (unknown) date) fruits/ve-1 unknown) (unknown) (no (unknown) (unknown) discussed weaning (units (unknown) date) off vs completely unknown) stopping her current meds and starting (unknown) (no (unknown) (unknown) do you feel safe (units (unknown) date) at home: Yes unknown) (unknown) (no (unknown) (unknown) does feel (units (unkno wn) date) lightheaded and is unknown) trying to stay hydrated. She is afraid she may drop (unknown) (no (unknown) (unknown) during the past (units (unknown) date) year weight has: unknown) remained stable (unknown) (no (unknown) (unknown) education level: (units (unknown) date) other unknown) (unknown) (no (unknown) (unknown) elevated, will (units ( unknown) date) consider a unknown) different medication. She is advised to take her BP at (unknown) (no (unknown) (unknown) falls and Reports (units (unknown) date) poor appetite unknown) (unknown) (no (unknown) (unknown) fire extinguisher (units (unknown) date) in home: Yes unknown) (unknown) (no (unknown) (unknown) firearms in home: (units (unknown) date) No unknown) (unknown) (no (unknown) (unknown) have occurred. If (units (unknown) date) there are any unknown) questions, please contact the Medical Records (unknown) (no (unknown) (unknown) her baby if it (units (unknown) date) gets worse. She unknown) has had chronic hypertension which is being (unknown) (no (unknown) (unknown) home and let us (units (unknown) date) know how it looks unknown) within 1 week. (unknown) (no (unknown) (unknown) household (units (unkn own) date) members: unknown) significant other and children (unknown) (no (unknown) (unknown) housing: (units (unkno wn) date) apartment unknown) (unknown) (no (unknown) (unknown) latex Adverse (units ( unknown) date) Reaction (Mild, unknown) Verified 09/02/22 15:44) (unknown) (no (unknown) (unknown) lives (units (unkno wn) date) independently: Yes unknown) (unknown) (no (unknown) (unknown) marital status: (units (unknown) date) unmarried,living unknown) together (unknown) (no (unknown) (unknown) may occur. (units (unk nown) date) Occasional unknown) wrong-word or 'sound-alike' substitutions may have (unknown) (no (unknown) (unknown) number of (units (unkn own) date) children: 2 unknown) (unknown) (no (unknown) (unknown) occupational (units (u nknown) date) status: employed unknown) (unknown) (no (unknown) (unknown) occurred due to (units (unknown) date) the inherent unknown) limitations of voice recognition software. Please (unknown) (no (unknown) (unknown) pets and animals: (units (unknown) date) Yes (1 cat (pt is unknown) not managing litter box)) (unknown) (no (unknown) (unknown) but (units (u nknown) date) denies any unknown) thoughts of harming herself or others at this time. She (unknown) (no (unknown) (unknown) read the note (units ( unknown) date) carefully and unknown) recognize, using context, where these substitutions (unknown) (no (unknown) (unknown) seatbelt use: (units ( unknown) date) always unknown) (unknown) (no (unknown) (unknown) second hand (units (un known) date) exposure: No unknown) (unknown) (no (unknown) (unknown) software. (units (unkn own) date) Although every unknown) effort is made to edit content, white sidewall tire buffer errors (unknown) (no (unknown) (unknown) special fly (units ( unknown) date) needs: No unknown) (unknown) (no (unknown) (unknown) substance use (units ( unknown) date) type: marijuana unknown) (unknown) (no (unknown) (unknown) to 200mg (units (unkno wn) date) Labetolol TID. If unknown) still elevated will do labetolol 200mg BID. If still (unknown) (no (unknown) (unknown) to call insurance (units (unknown) date) to see which unknown) counseling services are covered. Also will start (unknown) (no (unknown) (unknown) treated with (units (un known) date) nifedipine and unknown) labetolol since she was . She denies fevers, (unknown) (no (unknown) (unknown) was on fluoxetine (units (unknown) date) in the past but unknown) felt like it made her 'numb.' She also used (unknown) (no (unknown) (unknown) water heater temp (units (unknown) date) set < 120 deg: Yes unknown) (Will check and adjust if needed) (unknown) (no (unknown) (unknown) well-balanced (units ( unknown) date) diet: about half unknown) the time (unknown) (no (unknown) (unknown) will stop her (units (u nknown) date) nifedipine at this unknown) time. If her systolic BP is <120, she is to go (unknown) (no (unknown) (unknown) working smoke (units ( unknown) date) detector in home: unknown) Yes Result panel 37 (unknown) (no (unknown) (unknown) (no value) (units (unk nown) date) unknown) (unknown) (no (unknown) (unknown) (1) Essential (units ( unknown) date) hypertension: unknown) (unknown) (no (unknown) (unknown) (2) Post (units (unknown) date) depression: unknown) (unknown) (no (unknown) (unknown) [id number] (units (unkno wn) date) unknown) (unknown) (no (unknown) (unknown) 09/14/22 (units (unkno wn) date) unknown) (unknown) (no (unknown) (unknown) 09/16/22 0812 (units ( unknown) date) unknown) (unknown) (no (unknown) (unknown) Add'l Complaints: (units (unknown) date) unknown) (unknown) (no (unknown) (unknown) Advised to call (units (unknown) date) insurance to see unknown) which counseling services are covered. Also (unknown) (no (unknown) (unknown) Age/Sex: 32 / F (units (unknown) date) Date of Service: unknown) (unknown) (no (unknown) (unknown) Allergies (units (unkn own) date) unknown) (unknown) (no (unknown) (unknown) [facility] (units (unknown) date) Medicine unknown) (unknown) (no (unknown) (unknown) BHAVYA Cotter (units ( unknown) date) [id number] unknown) (unknown) (no (unknown) (unknown) Assessment + Plan (units (unknown) date) unknown) (unknown) (no (unknown) (unknown) Assessment and (units (unknown) date) Plan: unknown) (unknown) (no (unknown) (unknown) Attending Dr: (units ( unknown) date) Rabia Gooden MD unknown) (unknown) (no (unknown) (unknown) Auscultation: (units ( unknown) date) clear to unknown) auscultation bilaterally (unknown) (no (unknown) (unknown) Blister (units (unkno wn) date) unknown) (unknown) (no (unknown) (unknown) Card (units (unkno wn) date) unknown) (unknown) (no (unknown) (unknown) Cardio (units (unkno wn) date) unknown) (unknown) (no (unknown) (unknown) Chronic cough (units ( unknown) date) (-2000) unknown) (unknown) (no (unknown) (unknown) Const (units (unkno wn) date) unknown) (unknown) (no (unknown) (unknown) : 1990 (units (unknown) date) Acct:[id number] unknown) (unknown) (no (unknown) (unknown) Denies cough and (units (unknown) date) Denies dyspnea unknown) (unknown) (no (unknown) (unknown) Denies difficulty (units (unknown) date) voiding unknown) (unknown) (no (unknown) (unknown) Depression (units (unk nown) date) unknown) (unknown) (no (unknown) (unknown) Dept at (units (unkno wn) date) . unknown) (unknown) (no (unknown) (unknown) Diet and Exercise (units (unknown) date) unknown) (unknown) (no (unknown) (unknown) Discussed (units (unkn own) date) different options. unknown) Reassured by no thoughts of harming self or others (unknown) (no (unknown) (unknown) Documented By: (units (unknown) date) Rabia Gooden MD unknown) 09/14/22 1344 (unknown) (no (unknown) (unknown) Effort + (units (unkno wn) date) Inspection: normal unknown) respiratory effort and no cough (unknown) (no (unknown) (unknown) Endo (units (unkno wn) date) unknown) (unknown) (no (unknown) (unknown) Exam (units (unkno wn) date) unknown) (unknown) (no (unknown) (unknown) Family History (units (unknown) date) (Reviewed 07/30/22 unknown) @ 11:31 by Karina Gaytan DO) (unknown) (no (unknown) (unknown) Family Practice (units (unknown) date) Office Visit unknown) (unknown) (no (unknown) (unknown) GI (units (unkno wn) date) unknown) (unknown) (no (unknown) (unknown) (units (unkno wn) date) unknown) (unknown) (no (unknown) (unknown) Gastrointestinal: (units (unknown) date) Denies change in unknown) stool character (unknown) (no (unknown) (unknown) General: (units (unkno wn) date) cooperative and unknown) healthy appearing (unknown) (no (unknown) (unknown) Grandfather (units (un known) date) Hypertension unknown) (unknown) (no (unknown) (unknown) Grandmother Type (units (unknown) date) 2 diabetes unknown) mellitus (unknown) (no (unknown) (unknown) H/O bilateral (units ( unknown) date) salpingectomy unknown) (unknown) (no (unknown) (unknown) HTN follow up (units ( unknown) date) unknown) (unknown) (no (unknown) (unknown) Heart Sounds: S1 (units (unknown) date) normal and S2 unknown) normal (unknown) (no (unknown) (unknown) Hypertension (units (u nknown) date) unknown) (unknown) (no (unknown) (unknown) I verified the (units (unknown) date) medical student?s unknown) documentation in the medical record. I (unknown) (no (unknown) (unknown) ITCHING (units (unkno wn) date) unknown) (unknown) (no (unknown) (unknown) Intake (units (unkno wn) date) unknown) (unknown) (no (unknown) (unknown) Last Menstural (units (unknown) date) Cycle + Details unknown) (unknown) (no (unknown) (unknown) Loc: [facility] (units (unkno wn) date) unknown) (unknown) (no (unknown) (unknown) Medical History (units (unknown) date) (Updated 08/04/22 unknown) @ 13:01 by Rabia Gooden MD) (unknown) (no (unknown) (unknown) Medications: (units (u nknown) date) unknown) (unknown) (no (unknown) (unknown) Mother Age: 51 (units (unknown) date) Stroke unknown) (unknown) (no (unknown) (unknown) Neuro (units (unkno wn) date) unknown) (unknown) (no (unknown) (unknown) Neurologic: (units (un known) date) Denies frequent unknown) falls (unknown) (no (unknown) (unknown) New (units (unkno wn) date) unknown) (unknown) (no (unknown) (unknown) Note (units (unkno wn) date) unknown) (unknown) (no (unknown) (unknown) Note: (units (unkno wn) date) unknown) (unknown) (no (unknown) (unknown) Notes (units (unkno wn) date) unknown) (unknown) (no (unknown) (unknown) Other Menstrual (units (unknown) date) Period: Other unknown) (unknown) (no (unknown) (unknown) PFSH (units (unkno wn) date) unknown) (unknown) (no (unknown) (unknown) PUPP (pruritic (units (unknown) date) urticarial papules unknown) and plaques of ) (unknown) (no (unknown) (unknown) Patient reports (units (unknown) date) feeling unknown) lightheaded and her BP has been low at home. We (unknown) (no (unknown) (unknown) Patient's BP (units (u nknown) date) readings at home unknown) have been below 100 systolic/50-80 diastolic. She (unknown) (no (unknown) (unknown) Patient: (units (unkno wn) date) Ga Hagan L unknown) MR#: [id number] (unknown) (no (unknown) (unknown) Plan (units (unkno wn) date) unknown) (unknown) (no (unknown) (unknown) Plantar fasciitis (units (unknown) date) (-2016) unknown) (unknown) (no (unknown) (unknown) Psoriasis (units (unkn own) date) unknown) (unknown) (no (unknown) (unknown) RASH AND ITCHING (units (unknown) date) unknown) (unknown) (no (unknown) (unknown) RASH (units (unkno wn) date) unknown) (unknown) (no (unknown) (unknown) ROS (units (unkno wn) date) unknown) (unknown) (no (unknown) (unknown) Rash (units (unkno wn) date) unknown) (unknown) (no (unknown) (unknown) Rate: regular (units ( unknown) date) rate unknown) (unknown) (no (unknown) (unknown) Reason For Visit (units (unknown) date) unknown) (unknown) (no (unknown) (unknown) Reports (units (unkno wn) date) difficulty unknown) sleeping, Reports fatigue, Denies fever(s), Denies frequent (unknown) (no (unknown) (unknown) Reports fatigue (units (unknown) date) unknown) (unknown) (no (unknown) (unknown) Reports (units (unkno wn) date) lightheadedness unknown) and Denies dyspnea (unknown) (no (unknown) (unknown) Resp (units (unkno wn) date) unknown) (unknown) (no (unknown) (unknown) Rhythm: regular (units (unknown) date) rhythm unknown) (unknown) (no (unknown) (unknown) Safety (units (unkno wn) date) unknown) (unknown) (no (unknown) (unknown) She also reports (units (unknown) date) post unknown) depression that she would like help dealing with. (unknown) (no (unknown) (unknown) She has not been (units (unknown) date) sleeping well, has unknown) low appetite, and is feeling sad and anxious (unknown) (no (unknown) (unknown) Signed By: (units (unk nown) date) <Electronically unknown) signed by Rabia Gooden MD> (unknown) (no (unknown) (unknown) Signed (units (unkno wn) date) unknown) (unknown) (no (unknown) (unknown) Smoking Status: (units (unknown) date) Never smoker unknown) (unknown) (no (unknown) (unknown) Social History (units (unknown) date) unknown) (unknown) (no (unknown) (unknown) Status post (units (un known) date) appendectomy unknown) (-1993) (unknown) (no (unknown) (unknown) Status post (units (un known) date) delivery unknown) (01/06/11) (unknown) (no (unknown) (unknown) Status post (units (un known) date) delivery unknown) (unknown) (no (unknown) (unknown) Status: Chronic (units (unknown) date) unknown) (unknown) (no (unknown) (unknown) Sulfa (units (unkno wn) date) (Sulfonamide unknown) Antibiotics) Allergy (Mild, Verified 09/02/22 15:44) (unknown) (no (unknown) (unknown) Surgical History (units (unknown) date) (Updated 09/11/22 unknown) @ 09:01 by Rbaia Gooden MD) (unknown) (no (unknown) (unknown) This note may (units ( unknown) date) have been all or unknown) partially generated using voice recognition (unknown) (no (unknown) (unknown) Tobacco + (units (unkn own) date) Substance Use unknown) (unknown) (no (unknown) (unknown) Tobacco Status (units (unknown) date) unknown) (unknown) (no (unknown) (unknown) Type(s) of (units (unk nown) date) exercise: none unknown) (unknown) (no (unknown) (unknown) Visit Reasons: BP (units (unknown) date) Check unknown) (unknown) (no (unknown) (unknown) alcohol intake: (units (unknown) date) former unknown) (unknown) (no (unknown) (unknown) amoxicillin (units (un known) date) Allergy (Mild, unknown) Verified 09/02/22 15:44) (unknown) (no (unknown) (unknown) another low dose (units (unknown) date) agent now that she unknown) is no longer desiring future pregnancies and (unknown) (no (unknown) (unknown) appropriate (units (unk nown) date) changes to the unknown) documentation and the assessment and plan based on my (unknown) (no (unknown) (unknown) are not a formal (units (unknown) date) therapist and she unknown) would like to talk to one. (unknown) (no (unknown) (unknown) at times. She had (units (unknown) date) unknown) depression and psychosis with her previous (unknown) (no (unknown) (unknown) azithromycin (units (u nknown) date) Allergy (Mild, unknown) Verified 09/02/22 15:44) (unknown) (no (unknown) (unknown) but patient still (units (unknown) date) not sleeping well, unknown) feeling sad, and has low appetite. Does (unknown) (no (unknown) (unknown) caffeine: Yes (units ( unknown) date) unknown) (unknown) (no (unknown) (unknown) carbon monox (units (u nknown) date) detector in home: unknown) Yes (unknown) (no (unknown) (unknown) chills, changes (units (unknown) date) in bowel or unknown) bladder function. (unknown) (no (unknown) (unknown) chlorhexidine (units ( unknown) date) Adverse Reaction unknown) (Intermediate, Verified 09/02/22 15:44) (unknown) (no (unknown) (unknown) counseling and (units (unknown) date) that was helpful. unknown) She currently is talking to someone but they (unknown) (no (unknown) (unknown) current (units (unkno wn) date) occupational unknown) exposures/hazards: No (unknown) (no (unknown) (unknown) daily servings (units (unknown) date) fruits/ve-1 unknown) (unknown) (no (unknown) (unknown) discussed weaning (units (unknown) date) off vs completely unknown) stopping her current meds and starting (unknown) (no (unknown) (unknown) do you feel safe (units (unknown) date) at home: Yes unknown) (unknown) (no (unknown) (unknown) does feel (units (unkno wn) date) lightheaded and is unknown) trying to stay hydrated. She is afraid she may drop (unknown) (no (unknown) (unknown) during the past (units (unknown) date) year weight has: unknown) remained stable (unknown) (no (unknown) (unknown) education level: (units (unknown) date) other unknown) (unknown) (no (unknown) (unknown) falls and Reports (units (unknown) date) poor appetite unknown) (unknown) (no (unknown) (unknown) fire extinguisher (units (unknown) date) in home: Yes unknown) (unknown) (no (unknown) (unknown) firearms in home: (units (unknown) date) No unknown) (unknown) (no (unknown) (unknown) had (units (unkno wn) date) salpingectomy. 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 (unknown) (no (unknown) (unknown) have occurred. If (units (unknown) date) there are any unknown) questions, please contact the Medical Records (unknown) (no (unknown) (unknown) her baby if it (units (unknown) date) gets worse. She unknown) has had chronic hypertension which is being (unknown) (no (unknown) (unknown) her systolic BP is (units (unknown) date) <120, she is to go unknown) to 200mg Labetolol TID. If still elevated (unknown) (no (unknown) (unknown) household (units (unkn own) date) members: unknown) significant other and children (unknown) (no (unknown) (unknown) housing: (units (unkno wn) date) apartment unknown) (unknown) (no (unknown) (unknown) latex Adverse (units ( unknown) date) Reaction (Mild, unknown) Verified 09/02/22 15:44) (unknown) (no (unknown) (unknown) lives (units (unkno wn) date) independently: Yes unknown) (unknown) (no (unknown) (unknown) marital status: (units (unknown) date) unmarried,living unknown) together (unknown) (no (unknown) (unknown) may occur. (units (unk nown) date) Occasional unknown) wrong-word or 'sound-alike' substitutions may have (unknown) (no (unknown) (unknown) medication. She (units (unknown) date) is advised to take unknown) her BP at home and let us know how it looks (unknown) (no (unknown) (unknown) now rather than a (units (unknown) date) new prescription. unknown) We will stop her nifedipine at this time. If (unknown) (no (unknown) (unknown) number of (units (unkn own) date) children: 2 unknown) (unknown) (no (unknown) (unknown) occupational (units (u nknown) date) status: employed unknown) (unknown) (no (unknown) (unknown) occurred due to (units (unknown) date) the inherent unknown) limitations of voice recognition software. Please (unknown) (no (unknown) (unknown) personally (units (unk nown) date) performed a unknown) physical exam and medical decision making. I made (unknown) (no (unknown) (unknown) pets and animals: (units (unknown) date) Yes (1 cat (pt is unknown) not managing litter box)) (unknown) (no (unknown) (unknown) but (units (u nknown) date) denies any unknown) thoughts of harming herself or others at this time. She (unknown) (no (unknown) (unknown) read the note (units ( unknown) date) carefully and unknown) recognize, using context, where these substitutions (unknown) (no (unknown) (unknown) seatbelt use: (units ( unknown) date) always unknown) (unknown) (no (unknown) (unknown) second hand (units (un known) date) exposure: No unknown) (unknown) (no (unknown) (unknown) sertraline 25 mg (units (unknown) date) PO DAILY 30 tabs unknown) 3RF (unknown) (no (unknown) (unknown) software. (units (unkn own) date) Although every unknown) effort is made to edit content, white sidewall tire buffer errors (unknown) (no (unknown) (unknown) special fly (units ( unknown) date) needs: No unknown) (unknown) (no (unknown) (unknown) substance use (units ( unknown) date) type: marijuana unknown) (unknown) (no (unknown) (unknown) treated with (units (un known) date) nifedipine and unknown) labetolol since she was . She denies fevers, (unknown) (no (unknown) (unknown) verification, (units ( unknown) date) exam and medical unknown) decision making. (unknown) (no (unknown) (unknown) was on fluoxetine (units (unknown) date) in the past but unknown) felt like it made her 'numb.' She also used (unknown) (no (unknown) (unknown) water heater temp (units (unknown) date) set < 120 deg: Yes unknown) (Will check and adjust if needed) (unknown) (no (unknown) (unknown) well-balanced (units ( unknown) date) diet: about half unknown) the time (unknown) (no (unknown) (unknown) will do labetolol (units (unknown) date) 200mg BID. If unknown) still elevated, will consider a different (unknown) (no (unknown) (unknown) will start (units (unk nown) date) Zoloft. Follow up unknown) in 6 weeks or earlier if needed. (unknown) (no (unknown) (unknown) within 1 week. (units (unknown) date) unknown) (unknown) (no (unknown) (unknown) working smoke (units ( unknown) date) detector in home: unknown) Yes Result panel 38 (unknown) (no (unknown) (unknown) (no value) (units (unk nown) date) unknown) (unknown) (no (unknown) (unknown) [id number] (units (unkno wn) date) unknown) (unknown) (no (unknown) (unknown) 10/28/22 (units (unkno wn) date) unknown) (unknown) (no (unknown) (unknown) 10/28/22] (units (unkn own) date) unknown) (unknown) (no (unknown) (unknown) 11:41 (units (unkno wn) date) unknown) (unknown) (no (unknown) (unknown) 6 wk f/u (units (unkno wn) date) unknown) (unknown) (no (unknown) (unknown) Age/Sex: 32 / F (units (unknown) date) Date of Service: unknown) (unknown) (no (unknown) (unknown) Allergies (units (unkn own) date) unknown) (unknown) (no (unknown) (unknown) [facility] (units (unknown) date) Medicine unknown) (unknown) (no (unknown) (unknown) [place], [place] (units ( unknown) date) [id number] unknown) (unknown) (no (unknown) (unknown) Attending Dr: (units ( unknown) date) Rabia Gooden MD unknown) (unknown) (no (unknown) (unknown) BMI 35.6 (units (unkno wn) date) unknown) (unknown) (no (unknown) (unknown) BP 168/102 H (units (u nknown) date) unknown) (unknown) (no (unknown) (unknown) Blister (units (unkno wn) date) unknown) (unknown) (no (unknown) (unknown) Blood Pressure (units (unknown) date) Location Lt unknown) brachial (unknown) (no (unknown) (unknown) Chronic cough (units ( unknown) date) (-2000) unknown) (unknown) (no (unknown) (unknown) Confirmed (units (unkn own) date) 10/28/22] unknown) (unknown) (no (unknown) (unknown) : 1990 (units (unknown) date) Acct:[id number] unknown) (unknown) (no (unknown) (unknown) Depression (units (unk nown) date) unknown) (unknown) (no (unknown) (unknown) Dept at (units (unkno wn) date) . unknown) (unknown) (no (unknown) (unknown) Diet and (units (unkno wn) date) Exercise unknown) (unknown) (no (unknown) (unknown) Documented By: (units (unknown) date) Rabia Gooden MD unknown) 10/28/22 1140 (unknown) (no (unknown) (unknown) Draft (units (unkno wn) date) unknown) (unknown) (no (unknown) (unknown) Family History (units (unknown) date) (Reviewed unknown) 07/30/22 @ 11:31 by Karina Gaytan DO) (unknown) (no (unknown) (unknown) Family Practice (units (unknown) date) Office Visit unknown) (unknown) (no (unknown) (unknown) Grandfather (units (un known) date) Hypertension unknown) (unknown) (no (unknown) (unknown) Grandmother Type (units (unknown) date) 2 diabetes unknown) mellitus (unknown) (no (unknown) (unknown) H/O bilateral (units ( unknown) date) salpingectomy unknown) (unknown) (no (unknown) (unknown) Height 5 ft 2 in (units (unknown) date) unknown) (unknown) (no (unknown) (unknown) Hypertension (units (u nknown) date) unknown) (unknown) (no (unknown) (unknown) ITCHING (units (unkno wn) date) unknown) (unknown) (no (unknown) (unknown) Intake Note: (units (u nknown) date) unknown) (unknown) (no (unknown) (unknown) Intake performed (units (unknown) date) by: unknown) Gabriela Bagley (unknown) (no (unknown) (unknown) Intake (units (unkno wn) date) unknown) (unknown) (no (unknown) (unknown) Intake- Clincial (units (unknown) date) Staff unknown) (unknown) (no (unknown) (unknown) Last Menstural (units (unknown) date) Cycle + Details unknown) (unknown) (no (unknown) (unknown) Loc: [facility] (units (unkno wn) date) unknown) (unknown) (no (unknown) (unknown) Medical History (units (unknown) date) (Updated 08/04/22 unknown) @ 13:01 by Rabia Gooden MD) (unknown) (no (unknown) (unknown) Medications (units (un known) date) unknown) (unknown) (no (unknown) (unknown) Mother Age: 51 (units (unknown) date) Stroke unknown) (unknown) (no (unknown) (unknown) Other Menstrual (units (unknown) date) Period: Other unknown) (unknown) (no (unknown) (unknown) Oxygen Delivery (units (unknown) date) Method room air unknown) (unknown) (no (unknown) (unknown) PFSH (units (unkno wn) date) unknown) (unknown) (no (unknown) (unknown) PUPP (pruritic (units (unknown) date) urticarial unknown) papules and plaques of ) (unknown) (no (unknown) (unknown) Patient: (units (unkno wn) date) Ga Hagan unknown) MR#: [id number] (unknown) (no (unknown) (unknown) Plantar (units (unkno wn) date) fasciitis (-2016) unknown) (unknown) (no (unknown) (unknown) Position Sitting (units (unknown) date) unknown) (unknown) (no (unknown) (unknown) Psoriasis (units (unkn own) date) unknown) (unknown) (no (unknown) (unknown) Pulse 62 (units (unkno wn) date) unknown) (unknown) (no (unknown) (unknown) Pulse Oximetry (units (unknown) date) (%) 98 unknown) (unknown) (no (unknown) (unknown) Pulse Source (units (u nknown) date) Pulmonary Artery unknown) (unknown) (no (unknown) (unknown) RASH AND ITCHING (units (unknown) date) unknown) (unknown) (no (unknown) (unknown) RASH (units (unkno wn) date) unknown) (unknown) (no (unknown) (unknown) Rash (units (unkno wn) date) unknown) (unknown) (no (unknown) (unknown) Reason For Visit (units (unknown) date) unknown) (unknown) (no (unknown) (unknown) Safety (units (unkno wn) date) unknown) (unknown) (no (unknown) (unknown) Signed By: (units (unk nown) date) unknown) (unknown) (no (unknown) (unknown) Smoking Status: (units (unknown) date) Never smoker unknown) (unknown) (no (unknown) (unknown) Social History (units (unknown) date) unknown) (unknown) (no (unknown) (unknown) Status post (units (un known) date) appendectomy unknown) () (unknown) (no (unknown) (unknown) Status post (units (un known) date) delivery unknown) (01/06/11) (unknown) (no (unknown) (unknown) Status post (units (un known) date) delivery unknown) (unknown) (no (unknown) (unknown) Sulfa (units (unkno wn) date) (Sulfonamide unknown) Antibiotics) Allergy (Mild, Verified 10/28/22 11:40) (unknown) (no (unknown) (unknown) Surgical History (units (unknown) date) (Updated 09/11/22 unknown) @ 09:01 by Rabia Gooden MD) (unknown) (no (unknown) (unknown) This note may (units ( unknown) date) have been all or unknown) partially generated using voice recognition (unknown) (no (unknown) (unknown) Tobacco + (units (unkn own) date) Substance Use unknown) (unknown) (no (unknown) (unknown) Tobacco Status (units (unknown) date) unknown) (unknown) (no (unknown) (unknown) Type(s) of (units (unk nown) date) exercise: none unknown) (unknown) (no (unknown) (unknown) Visit Reasons: 6 (units (unknown) date) WK FU unknown) (unknown) (no (unknown) (unknown) Vitals (units (unkno wn) date) unknown) (unknown) (no (unknown) (unknown) Weight 195 lb (units ( unknown) date) unknown) (unknown) (no (unknown) (unknown) [Rx Confirmed (units ( unknown) date) 10/28/22] unknown) (unknown) (no (unknown) (unknown) alcohol intake: (units (unknown) date) former unknown) (unknown) (no (unknown) (unknown) amoxicillin (units (un known) date) Allergy (Mild, unknown) Verified 10/28/22 11:40) (unknown) (no (unknown) (unknown) azithromycin (units (u nknown) date) Allergy (Mild, unknown) Verified 10/28/22 11:40) (unknown) (no (unknown) (unknown) caffeine: Yes (units ( unknown) date) unknown) (unknown) (no (unknown) (unknown) carbon monox (units (u nknown) date) detector in home: unknown) Yes (unknown) (no (unknown) (unknown) chlorhexidine (units ( unknown) date) Adverse Reaction unknown) (Intermediate, Verified 10/28/22 11:40) (unknown) (no (unknown) (unknown) clobetasol 0.05 (units (unknown) date) % topical unknown) ointment 1 applic topical BID #45 grams 07/01/22 [Rx (unknown) (no (unknown) (unknown) current (units (unkno wn) date) occupational unknown) exposures/hazards : No (unknown) (no (unknown) (unknown) daily servings (units (unknown) date) fruits/ve-1 unknown) 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 in unknown) home: Yes (unknown) (no (unknown) (unknown) firearms in (units (un known) date) home: No unknown) (unknown) (no (unknown) (unknown) have occurred. (units (unknown) date) If there are any unknown) questions, please contact the Medical Records (unknown) (no (unknown) (unknown) household (units (unkn own) date) members: unknown) significant other and children (unknown) (no (unknown) (unknown) housing: (units (unkno wn) date) apartment unknown) (unknown) (no (unknown) (unknown) labetalol 100 mg (units (unknown) date) tablet 400 mg PO unknown) BID #360 tabs 08/04/22 [Rx Confirmed 10/28/22] (unknown) (no (unknown) (unknown) latex Adverse (units ( unknown) date) Reaction (Mild, unknown) Verified 10/28/22 11:40) (unknown) (no (unknown) (unknown) lives (units (unkno wn) date) independently: unknown) Yes (unknown) (no (unknown) (unknown) marital status: (units (unknown) date) unmarried,living unknown) together (unknown) (no (unknown) (unknown) may occur. (units (unk nown) date) Occasional unknown) wrong-word or 'sound-alike' substitutions may have (unknown) (no (unknown) (unknown) nifedipine 30 mg (units (unknown) date) tablet,extended unknown) release 24 hr 30 mg PO DAILY #30 tabs 08/04/22 (unknown) (no (unknown) (unknown) number of (units (unkn own) date) children: 2 unknown) (unknown) (no (unknown) (unknown) occupational (units (u nknown) date) status: employed unknown) (unknown) (no (unknown) (unknown) occurred due to (units (unknown) date) the inherent unknown) limitations of voice recognition software. Please (unknown) (no (unknown) (unknown) pets and (units (unkno wn) date) animals: Yes (1 unknown) cat (pt is not managing litter box)) (unknown) (no (unknown) (unknown) prenat.vits,miguel, (units (unknown) date) [id number] 1 unknown) tab PO DAILY 01/27/22 [History Confirmed (unknown) (no (unknown) (unknown) read the note (units ( unknown) date) carefully and unknown) recognize, using context, where these substitutions (unknown) (no (unknown) (unknown) seatbelt use: (units ( unknown) date) always unknown) (unknown) (no (unknown) (unknown) second hand (units (un known) date) exposure: No unknown) (unknown) (no (unknown) (unknown) sertraline 25 mg (units (unknown) date) tablet 25 mg PO unknown) DAILY #30 tabs 09/14/22 [Rx Confirmed 10/28/22] (unknown) (no (unknown) (unknown) software. (units (unkn own) date) Although every unknown) effort is made to edit content, white sidewall tire buffer errors (unknown) (no (unknown) (unknown) special fly (units ( unknown) date) needs: No unknown) (unknown) (no (unknown) (unknown) substance use (units ( unknown) date) type: marijuana unknown) (unknown) (no (unknown) (unknown) water heater (units (u nknown) date) temp set < 120 unknown) deg: Yes (Will check and adjust if needed) (unknown) (no (unknown) (unknown) well-balanced (units ( unknown) date) diet: about half unknown) the time (unknown) (no (unknown) (unknown) working smoke (units ( unknown) date) detector in home: unknown) Yes Result panel 39 (unknown) (no (unknown) (unknown) (no value) (units (unk nown) date) unknown) (unknown) (no (unknown) (unknown) [id number] (units (unkno wn) date) unknown) (unknown) (no (unknown) (unknown) 10/28/22 (units (unkno wn) date) unknown) (unknown) (no (unknown) (unknown) 10/28/22] (units (unkn own) date) unknown) (unknown) (no (unknown) (unknown) 11:41 10/28/22 (units (unknown) date) unknown) (unknown) (no (unknown) (unknown) 11:49 (units (unkno wn) date) unknown) (unknown) (no (unknown) (unknown) 6 wk f/u (units (unkno wn) date) unknown) (unknown) (no (unknown) (unknown) Age/Sex: 32 / F (units (unknown) date) Date of Service: unknown) (unknown) (no (unknown) (unknown) Allergies (units (unkn own) date) unknown) (unknown) (no (unknown) (unknown) [facility] (units (unknown) date) Medicine unknown) (unknown) (no (unknown) (unknown) [place], [place] (units ( unknown) date) [id number] unknown) (unknown) (no (unknown) (unknown) Attending Dr: (units ( unknown) date) Rabia Gooden MD unknown) (unknown) (no (unknown) (unknown) BMI 35.6 (units (unkno wn) date) unknown) (unknown) (no (unknown) (unknown) BP 168/102 H (units (u nknown) date) 166/96 H unknown) (unknown) (no (unknown) (unknown) BPs (units (unkno wn) date) 160s/100-110s. No unknown) chest pain, SOB. Swelling stable. Seeing spots (unknown) (no (unknown) (unknown) Blister (units (unkno wn) date) unknown) (unknown) (no (unknown) (unknown) Blood Pressure (units (unknown) date) Location Lt unknown) brachial Rt brachial (unknown) (no (unknown) (unknown) Chronic cough (units ( unknown) date) (-2000) unknown) (unknown) (no (unknown) (unknown) Confirmed (units (unkn own) date) 10/28/22] unknown) (unknown) (no (unknown) (unknown) : 1990 (units (unknown) date) Acct:[id number] unknown) (unknown) (no (unknown) (unknown) Depression (units (unk nown) date) unknown) (unknown) (no (unknown) (unknown) Dept at (units (unkno wn) date) . unknown) (unknown) (no (unknown) (unknown) Diet and (units (unkno wn) date) Exercise unknown) (unknown) (no (unknown) (unknown) Documented By: (units (unknown) date) Rabia Gooden MD unknown) 10/28/22 1140 (unknown) (no (unknown) (unknown) Draft (units (unkno wn) date) unknown) (unknown) (no (unknown) (unknown) Family History (units (unknown) date) (Reviewed unknown) 07/30/22 @ 11:31 by Karina Gaytan DO) (unknown) (no (unknown) (unknown) Family Practice (units (unknown) date) Office Visit unknown) (unknown) (no (unknown) (unknown) Grandfather (units (un known) date) Hypertension unknown) (unknown) (no (unknown) (unknown) Grandmother Type (units (unknown) date) 2 diabetes unknown) mellitus (unknown) (no (unknown) (unknown) H/O bilateral (units ( unknown) date) salpingectomy unknown) (unknown) (no (unknown) (unknown) Height 5 ft 2 in (units (unknown) date) unknown) (unknown) (no (unknown) (unknown) Hypertension (units (u nknown) date) unknown) (unknown) (no (unknown) (unknown) ITCHING (units (unkno wn) date) unknown) (unknown) (no (unknown) (unknown) Intake Note: (units (u nknown) date) unknown) (unknown) (no (unknown) (unknown) Intake performed (units (unknown) date) by: unknown) Gabriela Bagley (unknown) (no (unknown) (unknown) Intake (units (unkno wn) date) unknown) (unknown) (no (unknown) (unknown) Intake- Clincial (units (unknown) date) Staff unknown) (unknown) (no (unknown) (unknown) Last Menstural (units (unknown) date) Cycle + Details unknown) (unknown) (no (unknown) (unknown) Loc: [facility] (units (unkno wn) date) unknown) (unknown) (no (unknown) (unknown) Medical History (units (unknown) date) (Updated 08/04/22 unknown) @ 13:01 by Rabia Gooden MD) (unknown) (no (unknown) (unknown) Medications (units (un known) date) unknown) (unknown) (no (unknown) (unknown) Mother Age: 51 (units (unknown) date) Stroke unknown) (unknown) (no (unknown) (unknown) Note (units (unkno wn) date) unknown) (unknown) (no (unknown) (unknown) Note: (units (unkno wn) date) unknown) (unknown) (no (unknown) (unknown) Notes (units (unkno wn) date) unknown) (unknown) (no (unknown) (unknown) Other Menstrual (units (unknown) date) Period: Other unknown) (unknown) (no (unknown) (unknown) Oxygen Delivery (units (unknown) date) Method room air unknown) (unknown) (no (unknown) (unknown) PFSH (units (unkno wn) date) unknown) (unknown) (no (unknown) (unknown) PUPP (pruritic (units (unknown) date) urticarial unknown) papules and plaques of ) (unknown) (no (unknown) (unknown) Patient: (units (unkno wn) date) Ga Hagan unknown) MR#: [id number] (unknown) (no (unknown) (unknown) Plantar (units (unkno wn) date) fasciitis (-2016) unknown) (unknown) (no (unknown) (unknown) Position Sitting (units (unknown) date) Sitting unknown) (unknown) (no (unknown) (unknown) Psoriasis (units (unkn own) date) unknown) (unknown) (no (unknown) (unknown) Pt has been (units (un known) date) snapping at unknown) everyone. Not crying frequently, very boyce and (unknown) (no (unknown) (unknown) Pulse 62 (units (unkno wn) date) unknown) (unknown) (no (unknown) (unknown) Pulse Oximetry (units (unknown) date) (%) 98 unknown) (unknown) (no (unknown) (unknown) Pulse Source (units (u nknown) date) Pulmonary Artery unknown) (unknown) (no (unknown) (unknown) RASH AND ITCHING (units (unknown) date) unknown) (unknown) (no (unknown) (unknown) RASH (units (unkno wn) date) unknown) (unknown) (no (unknown) (unknown) Rash (units (unkno wn) date) unknown) (unknown) (no (unknown) (unknown) Reason For Visit (units (unknown) date) unknown) (unknown) (no (unknown) (unknown) Safety (units (unkno wn) date) unknown) (unknown) (no (unknown) (unknown) Signed By: (units (unk nown) date) unknown) (unknown) (no (unknown) (unknown) Smoking Status: (units (unknown) date) Never smoker unknown) (unknown) (no (unknown) (unknown) Social History (units (unknown) date) unknown) (unknown) (no (unknown) (unknown) Status post (units (un known) date) appendectomy unknown) (-1993) (unknown) (no (unknown) (unknown) Status post (units (un known) date) delivery unknown) (01/06/11) (unknown) (no (unknown) (unknown) Status post (units (un known) date) delivery unknown) (unknown) (no (unknown) (unknown) Sulfa (units (unkno wn) date) (Sulfonamide unknown) Antibiotics) Allergy (Mild, Verified 10/28/22 11:40) (unknown) (no (unknown) (unknown) Surgical History (units (unknown) date) (Updated 09/11/22 unknown) @ 09:01 by Rabia Gooden MD) (unknown) (no (unknown) (unknown) This note may (units ( unknown) date) have been all or unknown) partially generated using voice recognition (unknown) (no (unknown) (unknown) Tired all the (units ( unknown) date) time. unknown) (unknown) (no (unknown) (unknown) Tobacco + (units (unkn own) date) Substance Use unknown) (unknown) (no (unknown) (unknown) Tobacco Status (units (unknown) date) unknown) (unknown) (no (unknown) (unknown) Type(s) of (units (unk nown) date) exercise: none unknown) (unknown) (no (unknown) (unknown) Visit Reasons: 6 (units (unknown) date) WK FU unknown) (unknown) (no (unknown) (unknown) Vitals (units (unkno wn) date) unknown) (unknown) (no (unknown) (unknown) Weight 195 lb (units ( unknown) date) unknown) (unknown) (no (unknown) (unknown) [Rx Confirmed (units ( unknown) date) 10/28/22] unknown) (unknown) (no (unknown) (unknown) alcohol intake: (units (unknown) date) former unknown) (unknown) (no (unknown) (unknown) amoxicillin (units (un known) date) Allergy (Mild, unknown) Verified 10/28/22 11:40) (unknown) (no (unknown) (unknown) azithromycin (units (u nknown) date) Allergy (Mild, unknown) Verified 10/28/22 11:40) (unknown) (no (unknown) (unknown) caffeine: Yes (units ( unknown) date) unknown) (unknown) (no (unknown) (unknown) carbon monox (units (u nknown) date) detector in home: unknown) Yes (unknown) (no (unknown) (unknown) chlorhexidine (units ( unknown) date) Adverse Reaction unknown) (Intermediate, Verified 10/28/22 11:40) (unknown) (no (unknown) (unknown) clobetasol 0.05 (units (unknown) date) % topical unknown) ointment 1 applic topical BID #45 grams 07/01/22 [Rx (unknown) (no (unknown) (unknown) current (units (unkno wn) date) occupational unknown) exposures/hazards : No (unknown) (no (unknown) (unknown) daily servings (units (unknown) date) fruits/ve-1 unknown) 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 in unknown) home: Yes (unknown) (no (unknown) (unknown) firearms in (units (un known) date) home: No unknown) (unknown) (no (unknown) (unknown) have occurred. (units (unknown) date) If there are any unknown) questions, please contact the Medical Records (unknown) (no (unknown) (unknown) household (units (unkn own) date) members: unknown) significant other and children (unknown) (no (unknown) (unknown) housing: (units (unkno wn) date) apartment unknown) (unknown) (no (unknown) (unknown) irritable. No (units ( unknown) date) negative side unknown) effects. (unknown) (no (unknown) (unknown) labetalol 100 mg (units (unknown) date) tablet 400 mg PO unknown) BID #360 tabs 08/04/22 [Rx Confirmed 10/28/22] (unknown) (no (unknown) (unknown) latex Adverse (units ( unknown) date) Reaction (Mild, unknown) Verified 10/28/22 11:40) (unknown) (no (unknown) (unknown) lives (units (unkno wn) date) independently: unknown) Yes (unknown) (no (unknown) (unknown) marital status: (units (unknown) date) unmarried,living unknown) together (unknown) (no (unknown) (unknown) may occur. (units (unk nown) date) Occasional unknown) wrong-word or 'sound-alike' substitutions may have (unknown) (no (unknown) (unknown) nifedipine 30 mg (units (unknown) date) tablet,extended unknown) release 24 hr 30 mg PO DAILY #30 tabs 08/04/22 (unknown) (no (unknown) (unknown) number of (units (unkn own) date) children: 2 unknown) (unknown) (no (unknown) (unknown) occupational (units (u nknown) date) status: employed unknown) (unknown) (no (unknown) (unknown) occurred due to (units (unknown) date) the inherent unknown) limitations of voice recognition software. Please (unknown) (no (unknown) (unknown) pets and (units (unkno wn) date) animals: Yes (1 unknown) cat (pt is not managing litter box)) (unknown) (no (unknown) (unknown) prenat.vits,miguel, (units (unknown) date) [id number] 1 unknown) tab PO DAILY 01/27/22 [History Confirmed (unknown) (no (unknown) (unknown) read the note (units ( unknown) date) carefully and unknown) recognize, using context, where these substitutions (unknown) (no (unknown) (unknown) seatbelt use: (units ( unknown) date) always unknown) (unknown) (no (unknown) (unknown) second hand (units (un known) date) exposure: No unknown) (unknown) (no (unknown) (unknown) sertraline 25 mg (units (unknown) date) tablet 25 mg PO unknown) DAILY #30 tabs 09/14/22 [Rx Confirmed 10/28/22] (unknown) (no (unknown) (unknown) software. (units (unkn own) date) Although every unknown) effort is made to edit content, white sidewall tire buffer errors (unknown) (no (unknown) (unknown) special fly (units ( unknown) date) needs: No unknown) (unknown) (no (unknown) (unknown) substance use (units ( unknown) date) type: marijuana unknown) (unknown) (no (unknown) (unknown) typically around (units (unknown) date) bedtime. unknown) (unknown) (no (unknown) (unknown) water heater (units (u nknown) date) temp set < 120 unknown) deg: Yes (Will check and adjust if needed) (unknown) (no (unknown) (unknown) well-balanced (units ( unknown) date) diet: about half unknown) the time (unknown) (no (unknown) (unknown) working smoke (units ( unknown) date) detector in home: unknown) Yes Result panel 40 (unknown) (no (unknown) (unknown) (no value) (units (unk nown) date) unknown) (unknown) (no (unknown) (unknown) [id number] (units (unkno wn) date) unknown) (unknown) (no (unknown) (unknown) 10/28/22 (units (unkno wn) date) unknown) (unknown) (no (unknown) (unknown) 10/28/22] (units (unkn own) date) unknown) (unknown) (no (unknown) (unknown) 1. Little (units (unkn own) date) interest or unknown) pleasure in doing things: several days (unknown) (no (unknown) (unknown) 11:41 10/28/22 (units (unknown) date) unknown) (unknown) (no (unknown) (unknown) 11:49 (units (unkno wn) date) unknown) (unknown) (no (unknown) (unknown) 2. Feeling down, (units (unknown) date) depressed, or unknown) hopeless: not at all (unknown) (no (unknown) (unknown) 2RF (units (unkno wn) date) unknown) (unknown) (no (unknown) (unknown) 3. Trouble (units (unk nown) date) falling or unknown) staying asleep, or sleeping too much: more than half the (unknown) (no (unknown) (unknown) 4. Feeling tired (units (unknown) date) or having little unknown) energy: nearly every day (unknown) (no (unknown) (unknown) 5. Poor appetite (units (unknown) date) or overeating: unknown) several days (unknown) (no (unknown) (unknown) 6 wk f/u (units (unkno wn) date) unknown) (unknown) (no (unknown) (unknown) 6. Feeling bad (units (unknown) date) about yourself - unknown) or that you are a failure or have let yourself (unknown) (no (unknown) (unknown) 7. Trouble (units (unk nown) date) concentrating on unknown) things, such as reading the newspaper or watching (unknown) (no (unknown) (unknown) 8. Moving or (units (u nknown) date) speaking so unknown) slowly that other people could have noticed? - Or the (unknown) (no (unknown) (unknown) 9. Thoughts that (units (unknown) date) you would be unknown) better off or of hurting yourself in some (unknown) (no (unknown) (unknown) Age/Sex: 32 / F (units (unknown) date) Date of Service: unknown) (unknown) (no (unknown) (unknown) Allergies (units (unkn own) date) unknown) (unknown) (no (unknown) (unknown) [facility] (units (unknown) date) Medicine unknown) (unknown) (no (unknown) (unknown) [place], [place] (units ( unknown) date) [id number] unknown) (unknown) (no (unknown) (unknown) Assessment + (units (u nknown) date) Plan unknown) (unknown) (no (unknown) (unknown) Attending Dr: (units ( unknown) date) Rabia Gooden MD unknown) (unknown) (no (unknown) (unknown) BMI 35.6 (units (unkno wn) date) unknown) (unknown) (no (unknown) (unknown) BP 168/102 H (units (u nknown) date) 166/96 H unknown) (unknown) (no (unknown) (unknown) BPs (units (unkno wn) date) 160s/100-110s. No unknown) chest pain, SOB. Swelling stable. Seeing spots (unknown) (no (unknown) (unknown) Becoming easily (units (unknown) date) annoyed or unknown) irritable: 2 = More than half the days (unknown) (no (unknown) (unknown) Being so (units (unkno wn) date) restless that it unknown) is hard to sit still: 1 = Several days (unknown) (no (unknown) (unknown) Blister (units (unkno wn) date) unknown) (unknown) (no (unknown) (unknown) Blood Pressure (units (unknown) date) Location Lt unknown) brachial Rt brachial (unknown) (no (unknown) (unknown) Changed (units (unkno wn) date) unknown) (unknown) (no (unknown) (unknown) Chronic cough (units ( unknown) date) () unknown) (unknown) (no (unknown) (unknown) Confirmed (units (unkn own) date) 10/28/22] unknown) (unknown) (no (unknown) (unknown) : 1990 (units (unknown) date) Acct:[id number] unknown) (unknown) (no (unknown) (unknown) Depression (units (unk nown) date) unknown) (unknown) (no (unknown) (unknown) Depression/Bipol (units (unknown) date) ar unknown) (159/160/161/169/ 177) (unknown) (no (unknown) (unknown) Dept at (units (unkno wn) date) . unknown) (unknown) (no (unknown) (unknown) Diet and (units (unkno wn) date) Exercise unknown) (unknown) (no (unknown) (unknown) Discontinued (units (u nknown) date) Reason: unknown) Provider's Order 400 mg (4 x 100 mg) PO BID 360 tabs (unknown) (no (unknown) (unknown) Discontinued (units (u nknown) date) unknown) (unknown) (no (unknown) (unknown) Documented By: (units (unknown) date) Rabia Gooden MD unknown) 10/28/22 1140 (unknown) (no (unknown) (unknown) Draft (units (unkno wn) date) unknown) (unknown) (no (unknown) (unknown) Family History (units (unknown) date) (Reviewed unknown) 07/30/22 @ 11:31 by Karina Gaytan DO) (unknown) (no (unknown) (unknown) Family Practice (units (unknown) date) Office Visit unknown) (unknown) (no (unknown) (unknown) Feeling afraid (units (unknown) date) as if something unknown) awful might happen: 2 = More than half the days (unknown) (no (unknown) (unknown) Feeling nervous, (units (unknown) date) anxious, or on unknown) edge: 1 = Several days (unknown) (no (unknown) (unknown) From sertraline (units (unknown) date) 25 mg PO DAILY 30 unknown) tabs 3RF (unknown) (no (unknown) (unknown) KEY-7 (units (unkno wn) date) unknown) (unknown) (no (unknown) (unknown) Grandfather (units (un known) date) Hypertension unknown) (unknown) (no (unknown) (unknown) Grandmother Type (units (unknown) date) 2 diabetes unknown) mellitus (unknown) (no (unknown) (unknown) H/O bilateral (units ( unknown) date) salpingectomy unknown) (unknown) (no (unknown) (unknown) Height 5 ft 2 in (units (unknown) date) unknown) (unknown) (no (unknown) (unknown) Hypertension (units (u nknown) date) unknown) (unknown) (no (unknown) (unknown) ITCHING (units (unkno wn) date) unknown) (unknown) (no (unknown) (unknown) If you checked (units (unknown) date) off any problems, unknown) how difficult have these problems made it for (unknown) (no (unknown) (unknown) Intake Note: (units (u nknown) date) unknown) (unknown) (no (unknown) (unknown) Intake performed (units (unknown) date) by: unknown) Gabriela Bagley (unknown) (no (unknown) (unknown) Intake (units (unkno wn) date) unknown) (unknown) (no (unknown) (unknown) Intake- Clincial (units (unknown) date) Staff unknown) (unknown) (no (unknown) (unknown) Last Menstural (units (unknown) date) Cycle + Details unknown) (unknown) (no (unknown) (unknown) Loc: [facility] (units (unkno wn) date) unknown) (unknown) (no (unknown) (unknown) Medical History (units (unknown) date) (Updated 08/04/22 unknown) @ 13:01 by Rabia Gooden MD) (unknown) (no (unknown) (unknown) Medications (units (un known) date) unknown) (unknown) (no (unknown) (unknown) Medications: (units (u nknown) date) unknown) (unknown) (no (unknown) (unknown) Mother Age: 51 (units (unknown) date) Stroke unknown) (unknown) (no (unknown) (unknown) New (units (unkno wn) date) unknown) (unknown) (no (unknown) (unknown) Not being able (units (unknown) date) to stop or unknown) control worryin = Several days (unknown) (no (unknown) (unknown) Note (units (unkno wn) date) unknown) (unknown) (no (unknown) (unknown) Note: (units (unkno wn) date) unknown) (unknown) (no (unknown) (unknown) Notes (units (unkno wn) date) unknown) (unknown) (no (unknown) (unknown) Other Menstrual (units (unknown) date) Period: Other unknown) (unknown) (no (unknown) (unknown) Over the last 2 (units (unknown) date) weeks, how often unknown) have you been bothered by any of the following (unknown) (no (unknown) (unknown) Oxygen Delivery (units (unknown) date) Method room air unknown) (unknown) (no (unknown) (unknown) PFSH (units (unkno wn) date) unknown) (unknown) (no (unknown) (unknown) PHQ-9 (units (unkno wn) date) unknown) (unknown) (no (unknown) (unknown) PUPP (pruritic (units (unknown) date) urticarial unknown) papules and plaques of ) (unknown) (no (unknown) (unknown) Patient: (units (unkno wn) date) Ga Hagan L unknown) MR#: [id number] (unknown) (no (unknown) (unknown) Plantar (units (unkno wn) date) fasciitis (-2016) unknown) (unknown) (no (unknown) (unknown) Position Sitting (units (unknown) date) Sitting unknown) (unknown) (no (unknown) (unknown) Psoriasis (units (unkn own) date) unknown) (unknown) (no (unknown) (unknown) Pt has been (units (un known) date) snapping at unknown) everyone. Not crying frequently, very boyce and (unknown) (no (unknown) (unknown) Pulse 62 (units (unkno wn) date) unknown) (unknown) (no (unknown) (unknown) Pulse Oximetry (units (unknown) date) (%) 98 unknown) (unknown) (no (unknown) (unknown) Pulse Source (units (u nknown) date) Pulmonary Artery unknown) (unknown) (no (unknown) (unknown) Quality (units (unkno wn) date) Reporting unknown) (unknown) (no (unknown) (unknown) Questionnaires (units (unknown) date) unknown) (unknown) (no (unknown) (unknown) RASH AND ITCHING (units (unknown) date) unknown) (unknown) (no (unknown) (unknown) RASH (units (unkno wn) date) unknown) (unknown) (no (unknown) (unknown) Rash (units (unkno wn) date) unknown) (unknown) (no (unknown) (unknown) Reason For Visit (units (unknown) date) unknown) (unknown) (no (unknown) (unknown) Refilled (units (unkno wn) date) unknown) (unknown) (no (unknown) (unknown) Safety (units (unkno wn) date) unknown) (unknown) (no (unknown) (unknown) Signed By: (units (unk nown) date) unknown) (unknown) (no (unknown) (unknown) Smoking Status: (units (unknown) date) Never smoker unknown) (unknown) (no (unknown) (unknown) Social History (units (unknown) date) unknown) (unknown) (no (unknown) (unknown) Source: (units (unkno wn) date) Developed by unknown) Clarke Fowler, Mavis Brown, Russell Richardson (unknown) (no (unknown) (unknown) Status post (units (un known) date) appendectomy unknown) () (unknown) (no (unknown) (unknown) Status post (units (un known) date) delivery unknown) (01/06/11) (unknown) (no (unknown) (unknown) Status post (units (un known) date) delivery unknown) (unknown) (no (unknown) (unknown) Sulfa (units (unkno wn) date) (Sulfonamide unknown) Antibiotics) Allergy (Mild, Verified 10/28/22 11:40) (unknown) (no (unknown) (unknown) Surgical History (units (unknown) date) (Updated 09/11/22 unknown) @ 09:01 by Rabia Gooden MD) (unknown) (no (unknown) (unknown) This note may (units ( unknown) date) have been all or unknown) partially generated using voice recognition (unknown) (no (unknown) (unknown) Tired all the (units ( unknown) date) time. unknown) (unknown) (no (unknown) (unknown) To sertraline 50 (units (unknown) date) mg PO DAILY 30 unknown) tabs 3RF (unknown) (no (unknown) (unknown) Tobacco + (units (unkn own) date) Substance Use unknown) (unknown) (no (unknown) (unknown) Tobacco Status (units (unknown) date) unknown) (unknown) (no (unknown) (unknown) Total KEY-7 (units (un known) date) score (0-4 unknown) normal; 5-9 mild; 10-14 moderate; 15-21 severe): 9 (unknown) (no (unknown) (unknown) Total score: 9 (units (unknown) date) unknown) (unknown) (no (unknown) (unknown) Trouble (units (unkno wn) date) relaxin = unknown) Several days (unknown) (no (unknown) (unknown) Type(s) of (units (unk nown) date) exercise: none unknown) (unknown) (no (unknown) (unknown) Visit Reasons: 6 (units (unknown) date) WK FU unknown) (unknown) (no (unknown) (unknown) Vitals (units (unkno wn) date) unknown) (unknown) (no (unknown) (unknown) Weight 195 lb (units ( unknown) date) unknown) (unknown) (no (unknown) (unknown) Worrying too (units (u nknown) date) much about unknown) different things: 1 = Several days (unknown) (no (unknown) (unknown) [Rx Confirmed (units ( unknown) date) 10/28/22] unknown) (unknown) (no (unknown) (unknown) alcohol intake: (units (unknown) date) former unknown) (unknown) (no (unknown) (unknown) amoxicillin (units (un known) date) Allergy (Mild, unknown) Verified 10/28/22 11:40) (unknown) (no (unknown) (unknown) and colleagues, (units (unknown) date) with an unknown) educational rafat from [employer]. (unknown) (no (unknown) (unknown) and your family (units (unknown) date) down: several unknown) days (unknown) (no (unknown) (unknown) azithromycin (units (u nknown) date) Allergy (Mild, unknown) Verified 10/28/22 11:40) (unknown) (no (unknown) (unknown) caffeine: Yes (units ( unknown) date) unknown) (unknown) (no (unknown) (unknown) carbon monox (units (u nknown) date) detector in home: unknown) Yes (unknown) (no (unknown) (unknown) chlorhexidine (units ( unknown) date) Adverse Reaction unknown) (Intermediate, Verified 10/28/22 11:40) (unknown) (no (unknown) (unknown) clobetasol 0.05 (units (unknown) date) % topical unknown) ointment 1 applic topical BID #45 grams 07/01/22 [Rx (unknown) (no (unknown) (unknown) current (units (unkno wn) date) occupational unknown) exposures/hazards : No (unknown) (no (unknown) (unknown) daily servings (units (unknown) date) fruits/ve-1 unknown) (unknown) (no (unknown) (unknown) days (units (unkno wn) date) unknown) 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 in unknown) home: Yes (unknown) (no (unknown) (unknown) firearms in (units (un known) date) home: No unknown) (unknown) (no (unknown) (unknown) have occurred. (units (unknown) date) If there are any unknown) questions, please contact the Medical Records (unknown) (no (unknown) (unknown) household (units (unkn own) date) members: unknown) significant other and children (unknown) (no (unknown) (unknown) housing: (units (unkno wn) date) apartment unknown) (unknown) (no (unknown) (unknown) irritable. No (units ( unknown) date) negative side unknown) effects. (unknown) (no (unknown) (unknown) labetalol (units (unkn own) date) unknown) (unknown) (no (unknown) (unknown) latex Adverse (units ( unknown) date) Reaction (Mild, unknown) Verified 10/28/22 11:40) (unknown) (no (unknown) (unknown) lisinopril 40 mg (units (unknown) date) PO DAILY 30 tabs unknown) 0RF (unknown) (no (unknown) (unknown) lisinopril 40 mg (units (unknown) date) tablet 40 mg PO unknown) DAILY #30 tabs 10/28/22 [Rx Confirmed 10/28/22] (unknown) (no (unknown) (unknown) lives (units (unkno wn) date) independently: unknown) Yes (unknown) (no (unknown) (unknown) marital status: (units (unknown) date) unmarried,living unknown) together (unknown) (no (unknown) (unknown) may occur. (units (unk nown) date) Occasional unknown) wrong-word or 'sound-alike' substitutions may have (unknown) (no (unknown) (unknown) more than usual: (units (unknown) date) several days unknown) (unknown) (no (unknown) (unknown) nifedipine 30 mg (units (unknown) date) tablet,extended unknown) release 24 hr 30 mg PO DAILY #30 tabs 10/28/22 (unknown) (no (unknown) (unknown) nifedipine ER 30 (units (unknown) date) mg PO DAILY 30 unknown) tabs 0RF (unknown) (no (unknown) (unknown) number of (units (unkn own) date) children: 2 unknown) (unknown) (no (unknown) (unknown) occupational (units (u nknown) date) status: employed unknown) (unknown) (no (unknown) (unknown) occurred due to (units (unknown) date) the inherent unknown) limitations of voice recognition software. Please (unknown) (no (unknown) (unknown) opposite - being (units (unknown) date) so fidgety or unknown) restless that you have been moving around a lot (unknown) (no (unknown) (unknown) people?: not (units (u nknown) date) difficult at all unknown) (unknown) (no (unknown) (unknown) pets and (units (unkno wn) date) animals: Yes (1 unknown) cat (pt is not managing litter box)) (unknown) (no (unknown) (unknown) prenat.vits,miguel, (units (unknown) date) [id number] 1 unknown) tab PO DAILY 01/27/22 [History Confirmed (unknown) (no (unknown) (unknown) problems? (units (unkn own) date) unknown) (unknown) (no (unknown) (unknown) read the note (units ( unknown) date) carefully and unknown) recognize, using context, where these substitutions (unknown) (no (unknown) (unknown) seatbelt use: (units ( unknown) date) always unknown) (unknown) (no (unknown) (unknown) second hand (units (un known) date) exposure: No unknown) (unknown) (no (unknown) (unknown) sertraline 50 mg (units (unknown) date) tablet 50 mg PO unknown) DAILY #30 tabs 10/28/22 [Rx Confirmed 10/28/22] (unknown) (no (unknown) (unknown) software. (units (unkn own) date) Although every unknown) effort is made to edit content, white sidewall tire buffer errors (unknown) (no (unknown) (unknown) special fly (units ( unknown) date) needs: No unknown) (unknown) (no (unknown) (unknown) substance use (units ( unknown) date) type: marijuana unknown) (unknown) (no (unknown) (unknown) television: not (units (unknown) date) at all unknown) (unknown) (no (unknown) (unknown) typically around (units (unknown) date) bedtime. unknown) (unknown) (no (unknown) (unknown) water heater (units (u nknown) date) temp set < 120 unknown) deg: Yes (Will check and adjust if needed) (unknown) (no (unknown) (unknown) way: not at all (units (unknown) date) unknown) (unknown) (no (unknown) (unknown) well-balanced (units ( unknown) date) diet: about half unknown) the time (unknown) (no (unknown) (unknown) working smoke (units ( unknown) date) detector in home: unknown) Yes (unknown) (no (unknown) (unknown) you to do your (units (unknown) date) work, take care unknown) of things at home, or get along with other Result panel 41 (unknown) (no (unknown) (unknown) (no value) (units (unk nown) date) unknown) (unknown) (no (unknown) (unknown) [id number] (units (unkno wn) date) unknown) (unknown) (no (unknown) (unknown) 10/28/22 (units (unkno wn) date) unknown) (unknown) (no (unknown) (unknown) 10/28/22] (units (unkn own) date) unknown) (unknown) (no (unknown) (unknown) 1. Little (units (unkn own) date) interest or unknown) pleasure in doing things: several days (unknown) (no (unknown) (unknown) 11:41 10/28/22 (units (unknown) date) unknown) (unknown) (no (unknown) (unknown) 11:49 (units (unkno wn) date) unknown) (unknown) (no (unknown) (unknown) 2. Feeling down, (units (unknown) date) depressed, or unknown) hopeless: not at all (unknown) (no (unknown) (unknown) 2RF (units (unkno wn) date) unknown) (unknown) (no (unknown) (unknown) 3. Trouble (units (unk nown) date) falling or unknown) staying asleep, or sleeping too much: more than half the (unknown) (no (unknown) (unknown) 4. Feeling tired (units (unknown) date) or having little unknown) energy: nearly every day (unknown) (no (unknown) (unknown) 5. Poor appetite (units (unknown) date) or overeating: unknown) several days (unknown) (no (unknown) (unknown) 6 wk f/u (units (unkno wn) date) unknown) (unknown) (no (unknown) (unknown) 6. Feeling bad (units (unknown) date) about yourself - unknown) or that you are a failure or have let yourself (unknown) (no (unknown) (unknown) 7. Trouble (units (unk nown) date) concentrating on unknown) things, such as reading the newspaper or watching (unknown) (no (unknown) (unknown) 8. Moving or (units (u nknown) date) speaking so unknown) slowly that other people could have noticed? - Or the (unknown) (no (unknown) (unknown) 9. Thoughts that (units (unknown) date) you would be unknown) better off or of hurting yourself in some (unknown) (no (unknown) (unknown) Age/Sex: 32 / F (units (unknown) date) Date of Service: unknown) (unknown) (no (unknown) (unknown) Allergies (units (unkn own) date) unknown) (unknown) (no (unknown) (unknown) [facility] (units (unknown) date) [facility] unknown) (unknown) (no (unknown) (unknown) [place], [place] (units ( unknown) date) [id number] unknown) (unknown) (no (unknown) (unknown) Assessment + (units (u nknown) date) Plan unknown) (unknown) (no (unknown) (unknown) Attending Dr: (units ( unknown) date) Rabia Newlon MD unknown) (unknown) (no (unknown) (unknown) BMI 35.6 (units (unkno wn) date) unknown) (unknown) (no (unknown) (unknown) BP 168/102 H (units (u nknown) date) 166/96 H unknown) (unknown) (no (unknown) (unknown) BPs (units (unkno wn) date) 160s/100-110s. No unknown) chest pain, SOB. Swelling stable. Seeing spots (unknown) (no (unknown) (unknown) Becoming easily (units (unknown) date) annoyed or unknown) irritable: 2 = More than half the days (unknown) (no (unknown) (unknown) Being so (units (unkno wn) date) restless that it unknown) is hard to sit still: 1 = Several days (unknown) (no (unknown) (unknown) Blister (units (unkno wn) date) unknown) (unknown) (no (unknown) (unknown) Blood Pressure (units (unknown) date) Location Lt unknown) brachial Rt brachial (unknown) (no (unknown) (unknown) Changed (units (unkno wn) date) unknown) (unknown) (no (unknown) (unknown) Chronic cough (units ( unknown) date) (-2000) unknown) (unknown) (no (unknown) (unknown) Confirmed (units (unkn own) date) 10/28/22] unknown) (unknown) (no (unknown) (unknown) : 1990 (units (unknown) date) Acct:[id number] unknown) (unknown) (no (unknown) (unknown) Depression (units (unk nown) date) unknown) (unknown) (no (unknown) (unknown) Depression/Bipol (units (unknown) date) ar unknown) (159/160/161/169/ 177) (unknown) (no (unknown) (unknown) Dept at (units (unkno wn) date) . unknown) (unknown) (no (unknown) (unknown) Diet and (units (unkno wn) date) Exercise unknown) (unknown) (no (unknown) (unknown) Discontinued (units (u nknown) date) Reason: unknown) Provider's Order 400 mg (4 x 100 mg) PO BID 360 tabs (unknown) (no (unknown) (unknown) Discontinued (units (u nknown) date) unknown) (unknown) (no (unknown) (unknown) Documented By: (units (unknown) date) Rabia Gooden MD unknown) 10/28/22 1140 (unknown) (no (unknown) (unknown) Draft (units (unkno wn) date) unknown) (unknown) (no (unknown) (unknown) Family History (units (unknown) date) (Reviewed unknown) 07/30/22 @ 11:31 by Karina Gaytan DO) (unknown) (no (unknown) (unknown) Family Practice (units (unknown) date) Office Visit unknown) (unknown) (no (unknown) (unknown) Feeling afraid (units (unknown) date) as if something unknown) awful might happen: 2 = More than half the days (unknown) (no (unknown) (unknown) Feeling nervous, (units (unknown) date) anxious, or on unknown) edge: 1 = Several days (unknown) (no (unknown) (unknown) From sertraline (units (unknown) date) 25 mg PO DAILY 30 unknown) tabs 3RF (unknown) (no (unknown) (unknown) KEY-7 (units (unkno wn) date) unknown) (unknown) (no (unknown) (unknown) Grandfather (units (un known) date) Hypertension unknown) (unknown) (no (unknown) (unknown) Grandmother Type (units (unknown) date) 2 diabetes unknown) mellitus (unknown) (no (unknown) (unknown) H/O bilateral (units ( unknown) date) salpingectomy unknown) (unknown) (no (unknown) (unknown) Height 5 ft 2 in (units (unknown) date) unknown) (unknown) (no (unknown) (unknown) Hypertension (units (u nknown) date) unknown) (unknown) (no (unknown) (unknown) ITCHING (units (unkno wn) date) unknown) (unknown) (no (unknown) (unknown) If you checked (units (unknown) date) off any problems, unknown) how difficult have these problems made it for (unknown) (no (unknown) (unknown) Intake Note: (units (u nknown) date) unknown) (unknown) (no (unknown) (unknown) Intake performed (units (unknown) date) by: unknown) Gabriela Bagley (unknown) (no (unknown) (unknown) Intake (units (unkno wn) date) unknown) (unknown) (no (unknown) (unknown) Intake- Clincial (units (unknown) date) Staff unknown) (unknown) (no (unknown) (unknown) Last Menstural (units (unknown) date) Cycle + Details unknown) (unknown) (no (unknown) (unknown) Loc: [facility] (units (unkno wn) date) unknown) (unknown) (no (unknown) (unknown) Medical History (units (unknown) date) (Updated 08/04/22 unknown) @ 13:01 by Rabia Gooden MD) (unknown) (no (unknown) (unknown) Medications (units (un known) date) unknown) (unknown) (no (unknown) (unknown) Medications: (units (u nknown) date) unknown) (unknown) (no (unknown) (unknown) Mother Age: 51 (units (unknown) date) Stroke unknown) (unknown) (no (unknown) (unknown) New (units (unkno wn) date) unknown) (unknown) (no (unknown) (unknown) Not being able (units (unknown) date) to stop or unknown) control worryin = Several days (unknown) (no (unknown) (unknown) Note (units (unkno wn) date) unknown) (unknown) (no (unknown) (unknown) Note: (units (unkno wn) date) unknown) (unknown) (no (unknown) (unknown) Notes (units (unkno wn) date) unknown) (unknown) (no (unknown) (unknown) Other Menstrual (units (unknown) date) Period: Other unknown) (unknown) (no (unknown) (unknown) Over the last 2 (units (unknown) date) weeks, how often unknown) have you been bothered by any of the following (unknown) (no (unknown) (unknown) Oxygen Delivery (units (unknown) date) Method room air unknown) (unknown) (no (unknown) (unknown) PFSH (units (unkno wn) date) unknown) (unknown) (no (unknown) (unknown) PHQ-9 (units (unkno wn) date) unknown) (unknown) (no (unknown) (unknown) PUPP (pruritic (units (unknown) date) urticarial unknown) papules and plaques of ) (unknown) (no (unknown) (unknown) Patient: (units (unkno wn) date) Ga Hagan unknown) MR#: [id number] (unknown) (no (unknown) (unknown) Plantar (units (unkno wn) date) fasciitis (-2016) unknown) (unknown) (no (unknown) (unknown) Position Sitting (units (unknown) date) Sitting unknown) (unknown) (no (unknown) (unknown) Psoriasis (units (unkn own) date) unknown) (unknown) (no (unknown) (unknown) Pt has been (units (un known) date) snapping at unknown) everyone. Not crying frequently, very boyce and (unknown) (no (unknown) (unknown) Pulse 62 (units (unkno wn) date) unknown) (unknown) (no (unknown) (unknown) Pulse Oximetry (units (unknown) date) (%) 98 unknown) (unknown) (no (unknown) (unknown) Pulse Source (units (u nknown) date) Pulmonary Artery unknown) (unknown) (no (unknown) (unknown) Quality (units (unkno wn) date) Reporting unknown) (unknown) (no (unknown) (unknown) Questionnaires (units (unknown) date) unknown) (unknown) (no (unknown) (unknown) RASH AND ITCHING (units (unknown) date) unknown) (unknown) (no (unknown) (unknown) RASH (units (unkno wn) date) unknown) (unknown) (no (unknown) (unknown) Rash (units (unkno wn) date) unknown) (unknown) (no (unknown) (unknown) Reason For Visit (units (unknown) date) unknown) (unknown) (no (unknown) (unknown) Refilled (units (unkno wn) date) unknown) (unknown) (no (unknown) (unknown) Safety (units (unkno wn) date) unknown) (unknown) (no (unknown) (unknown) Signed By: (units (unk nown) date) unknown) (unknown) (no (unknown) (unknown) Smoking Status: (units (unknown) date) Never smoker unknown) (unknown) (no (unknown) (unknown) Social History (units (unknown) date) unknown) (unknown) (no (unknown) (unknown) Source: (units (unkno wn) date) Developed by unknown) Clarke Fowler, Mavis Brown, Russell Richardson (unknown) (no (unknown) (unknown) Status post (units (un known) date) appendectomy unknown) () (unknown) (no (unknown) (unknown) Status post (units (un known) date) delivery unknown) (01/06/11) (unknown) (no (unknown) (unknown) Status post (units (un known) date) delivery unknown) (unknown) (no (unknown) (unknown) Sulfa (units (unkno wn) date) (Sulfonamide unknown) Antibiotics) Allergy (Mild, Verified 10/28/22 11:40) (unknown) (no (unknown) (unknown) Surgical History (units (unknown) date) (Updated 09/11/22 unknown) @ 09:01 by Rabia Gooden MD) (unknown) (no (unknown) (unknown) This note may (units ( unknown) date) have been all or unknown) partially generated using voice recognition (unknown) (no (unknown) (unknown) Tired all the (units ( unknown) date) time. unknown) (unknown) (no (unknown) (unknown) To sertraline 50 (units (unknown) date) mg PO DAILY 30 unknown) tabs 3RF (unknown) (no (unknown) (unknown) Tobacco + (units (unkn own) date) Substance Use unknown) (unknown) (no (unknown) (unknown) Tobacco Status (units (unknown) date) unknown) (unknown) (no (unknown) (unknown) Total KEY-7 (units (un known) date) score (0-4 unknown) normal; 5-9 mild; 10-14 moderate; 15-21 severe): 9 (unknown) (no (unknown) (unknown) Total score: 9 (units (unknown) date) unknown) (unknown) (no (unknown) (unknown) Trouble (units (unkno wn) date) relaxin = unknown) Several days (unknown) (no (unknown) (unknown) Type(s) of (units (unk nown) date) exercise: none unknown) (unknown) (no (unknown) (unknown) Visit Reasons: 6 (units (unknown) date) WK FU unknown) (unknown) (no (unknown) (unknown) Vitals (units (unkno wn) date) unknown) (unknown) (no (unknown) (unknown) Weight 195 lb (units ( unknown) date) unknown) (unknown) (no (unknown) (unknown) Worrying too (units (u nknown) date) much about unknown) different things: 1 = Several days (unknown) (no (unknown) (unknown) [Rx Confirmed (units ( unknown) date) 10/28/22] unknown) (unknown) (no (unknown) (unknown) alcohol intake: (units (unknown) date) former unknown) (unknown) (no (unknown) (unknown) amoxicillin (units (un known) date) Allergy (Mild, unknown) Verified 10/28/22 11:40) (unknown) (no (unknown) (unknown) and colleagues, (units (unknown) date) with an unknown) educational rafat from [employer]. (unknown) (no (unknown) (unknown) and your family (units (unknown) date) down: several unknown) days (unknown) (no (unknown) (unknown) azithromycin (units (u nknown) date) Allergy (Mild, unknown) Verified 10/28/22 11:40) (unknown) (no (unknown) (unknown) caffeine: Yes (units ( unknown) date) unknown) (unknown) (no (unknown) (unknown) carbon monox (units (u nknown) date) detector in home: unknown) Yes (unknown) (no (unknown) (unknown) chlorhexidine (units ( unknown) date) Adverse Reaction unknown) (Intermediate, Verified 10/28/22 11:40) (unknown) (no (unknown) (unknown) clobetasol 0.05 (units (unknown) date) % topical unknown) ointment 1 applic topical BID #45 grams 07/01/22 [Rx (unknown) (no (unknown) (unknown) current (units (unkno wn) date) occupational unknown) exposures/hazards : No (unknown) (no (unknown) (unknown) daily servings (units (unknown) date) fruits/ve-1 unknown) (unknown) (no (unknown) (unknown) days (units (unkno wn) date) unknown) 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 in unknown) home: Yes (unknown) (no (unknown) (unknown) firearms in (units (un known) date) home: No unknown) (unknown) (no (unknown) (unknown) have occurred. (units (unknown) date) If there are any unknown) questions, please contact the Medical Records (unknown) (no (unknown) (unknown) household (units (unkn own) date) members: unknown) significant other and children (unknown) (no (unknown) (unknown) housing: (units (unkno wn) date) apartment unknown) (unknown) (no (unknown) (unknown) irritable. No (units ( unknown) date) negative side unknown) effects. (unknown) (no (unknown) (unknown) labetalol (units (unkn own) date) unknown) (unknown) (no (unknown) (unknown) latex Adverse (units ( unknown) date) Reaction (Mild, unknown) Verified 10/28/22 11:40) (unknown) (no (unknown) (unknown) lisinopril 40 mg (units (unknown) date) PO DAILY 30 tabs unknown) 0RF (unknown) (no (unknown) (unknown) lisinopril 40 mg (units (unknown) date) tablet 40 mg PO unknown) DAILY #30 tabs 10/28/22 [Rx Confirmed 10/28/22] (unknown) (no (unknown) (unknown) lives (units (unkno wn) date) independently: unknown) Yes (unknown) (no (unknown) (unknown) marital status: (units (unknown) date) unmarried,living unknown) together (unknown) (no (unknown) (unknown) may occur. (units (unk nown) date) Occasional unknown) wrong-word or 'sound-alike' substitutions may have (unknown) (no (unknown) (unknown) more than usual: (units (unknown) date) several days unknown) (unknown) (no (unknown) (unknown) nifedipine 30 mg (units (unknown) date) tablet,extended unknown) release 24 hr 30 mg PO DAILY #30 tabs 10/28/22 (unknown) (no (unknown) (unknown) nifedipine ER 30 (units (unknown) date) mg PO DAILY 30 unknown) tabs 0RF (unknown) (no (unknown) (unknown) number of (units (unkn own) date) children: 2 unknown) (unknown) (no (unknown) (unknown) occupational (units (u nknown) date) status: employed unknown) (unknown) (no (unknown) (unknown) occurred due to (units (unknown) date) the inherent unknown) limitations of voice recognition software. Please (unknown) (no (unknown) (unknown) opposite - being (units (unknown) date) so fidgety or unknown) restless that you have been moving around a lot (unknown) (no (unknown) (unknown) people?: not (units (u nknown) date) difficult at all unknown) (unknown) (no (unknown) (unknown) pets and (units (unkno wn) date) animals: Yes (1 unknown) cat (pt is not managing litter box)) (unknown) (no (unknown) (unknown) prenat.vits,miguel, (units (unknown) date) [id number] 1 unknown) tab PO DAILY 01/27/22 [History Confirmed (unknown) (no (unknown) (unknown) problems? (units (unkn own) date) unknown) (unknown) (no (unknown) (unknown) read the note (units ( unknown) date) carefully and unknown) recognize, using context, where these substitutions (unknown) (no (unknown) (unknown) seatbelt use: (units ( unknown) date) always unknown) (unknown) (no (unknown) (unknown) second hand (units (un known) date) exposure: No unknown) (unknown) (no (unknown) (unknown) sertraline 50 mg (units (unknown) date) tablet 50 mg PO unknown) DAILY #30 tabs 10/28/22 [Rx Confirmed 10/28/22] (unknown) (no (unknown) (unknown) software. (units (unkn own) date) Although every unknown) effort is made to edit content, white sidewall tire buffer errors (unknown) (no (unknown) (unknown) special fly (units ( unknown) date) needs: No unknown) (unknown) (no (unknown) (unknown) substance use (units ( unknown) date) type: marijuana unknown) (unknown) (no (unknown) (unknown) television: not (units (unknown) date) at all unknown) (unknown) (no (unknown) (unknown) typically around (units (unknown) date) bedtime. unknown) (unknown) (no (unknown) (unknown) water heater (units (u nknown) date) temp set < 120 unknown) deg: Yes (Will check and adjust if needed) (unknown) (no (unknown) (unknown) way: not at all (units (unknown) date) unknown) (unknown) (no (unknown) (unknown) well-balanced (units ( unknown) date) diet: about half unknown) the time (unknown) (no (unknown) (unknown) working smoke (units ( unknown) date) detector in home: unknown) Yes (unknown) (no (unknown) (unknown) you to do your (units (unknown) date) work, take care unknown) of things at home, or get along with other Result panel 42 (unknown) (no (unknown) (unknown) (no value) (units (unk nown) date) unknown) (unknown) (no (unknown) (unknown) [id number] (units (unkno wn) date) unknown) (unknown) (no (unknown) (unknown) 10/28/22 (units (unkno wn) date) unknown) (unknown) (no (unknown) (unknown) 10/28/22] (units (unkn own) date) unknown) (unknown) (no (unknown) (unknown) 1. Little (units (unkn own) date) interest or unknown) pleasure in doing things: several days (unknown) (no (unknown) (unknown) 11:41 10/28/22 (units (unknown) date) unknown) (unknown) (no (unknown) (unknown) 11:49 (units (unkno wn) date) unknown) (unknown) (no (unknown) (unknown) 2. Feeling down, (units (unknown) date) depressed, or unknown) hopeless: not at all (unknown) (no (unknown) (unknown) 2RF (units (unkno wn) date) unknown) (unknown) (no (unknown) (unknown) 3. Trouble (units (unk nown) date) falling or unknown) staying asleep, or sleeping too much: more than half the (unknown) (no (unknown) (unknown) 4. Feeling tired (units (unknown) date) or having little unknown) energy: nearly every day (unknown) (no (unknown) (unknown) 5. Poor appetite (units (unknown) date) or overeating: unknown) several days (unknown) (no (unknown) (unknown) 6 wk f/u (units (unkno wn) date) unknown) (unknown) (no (unknown) (unknown) 6. Feeling bad (units (unknown) date) about yourself - unknown) or that you are a failure or have let yourself (unknown) (no (unknown) (unknown) 7. Trouble (units (unk nown) date) concentrating on unknown) things, such as reading the newspaper or watching (unknown) (no (unknown) (unknown) 8. Moving or (units (u nknown) date) speaking so unknown) slowly that other people could have noticed? - Or the (unknown) (no (unknown) (unknown) 9. Thoughts that (units (unknown) date) you would be unknown) better off or of hurting yourself in some (unknown) (no (unknown) (unknown) Age/Sex: 32 / F (units (unknown) date) Date of Service: unknown) (unknown) (no (unknown) (unknown) Allergies (units (unkn own) date) unknown) (unknown) (no (unknown) (unknown) [facility] (units (unknown) date) Medicine unknown) (unknown) (no (unknown) (unknown) [place] (units ( unknown) date) [id number] unknown) (unknown) (no (unknown) (unknown) Assessment + (units (u nknown) date) Plan unknown) (unknown) (no (unknown) (unknown) Attending Dr: (units ( unknown) date) Rabia Gooden MD unknown) (unknown) (no (unknown) (unknown) BMI 35.6 (units (unkno wn) date) unknown) (unknown) (no (unknown) (unknown) BP 168/102 H (units (u nknown) date) 166/96 H unknown) (unknown) (no (unknown) (unknown) BPs (units (unkno wn) date) 160s/100-110s. No unknown) chest pain, SOB. Swelling stable. Seeing spots (unknown) (no (unknown) (unknown) Becoming easily (units (unknown) date) annoyed or unknown) irritable: 2 = More than half the days (unknown) (no (unknown) (unknown) Being so (units (unkno wn) date) restless that it unknown) is hard to sit still: 1 = Several days (unknown) (no (unknown) (unknown) Blister (units (unkno wn) date) unknown) (unknown) (no (unknown) (unknown) Blood Pressure (units (unknown) date) Location Lt unknown) brachial Rt brachial (unknown) (no (unknown) (unknown) Changed (units (unkno wn) date) unknown) (unknown) (no (unknown) (unknown) Chronic cough (units ( unknown) date) (-2000) unknown) (unknown) (no (unknown) (unknown) Confirmed (units (unkn own) date) 10/28/22] unknown) (unknown) (no (unknown) (unknown) : 1990 (units (unknown) date) Acct:[id number] unknown) (unknown) (no (unknown) (unknown) Depression (units (unk nown) date) unknown) (unknown) (no (unknown) (unknown) Depression/Bipol (units (unknown) date) ar unknown) (159/160/161/169/ 177) (unknown) (no (unknown) (unknown) Dept at (units (unkno wn) date) . unknown) (unknown) (no (unknown) (unknown) Diet and (units (unkno wn) date) Exercise unknown) (unknown) (no (unknown) (unknown) Discontinued (units (u nknown) date) Reason: unknown) Provider's Order 400 mg (4 x 100 mg) PO BID 360 tabs (unknown) (no (unknown) (unknown) Discontinued (units (u nknown) date) unknown) (unknown) (no (unknown) (unknown) Documented By: (units (unknown) date) Rabia Gooden MD unknown) 10/28/22 1140 (unknown) (no (unknown) (unknown) Draft (units (unkno wn) date) unknown) (unknown) (no (unknown) (unknown) Family History (units (unknown) date) (Reviewed unknown) 07/30/22 @ 11:31 by Karina Gaytan DO) (unknown) (no (unknown) (unknown) Family Practice (units (unknown) date) Office Visit unknown) (unknown) (no (unknown) (unknown) Feeling afraid (units (unknown) date) as if something unknown) awful might happen: 2 = More than half the days (unknown) (no (unknown) (unknown) Feeling nervous, (units (unknown) date) anxious, or on unknown) edge: 1 = Several days (unknown) (no (unknown) (unknown) From sertraline (units (unknown) date) 25 mg PO DAILY 30 unknown) tabs 3RF (unknown) (no (unknown) (unknown) KEY-7 (units (unkno wn) date) unknown) (unknown) (no (unknown) (unknown) Grandfather (units (un known) date) Hypertension unknown) (unknown) (no (unknown) (unknown) Grandmother Type (units (unknown) date) 2 diabetes unknown) mellitus (unknown) (no (unknown) (unknown) H/O bilateral (units ( unknown) date) salpingectomy unknown) (unknown) (no (unknown) (unknown) Height 5 ft 2 in (units (unknown) date) unknown) (unknown) (no (unknown) (unknown) Hypertension (units (u nknown) date) unknown) (unknown) (no (unknown) (unknown) ITCHING (units (unkno wn) date) unknown) (unknown) (no (unknown) (unknown) If you checked (units (unknown) date) off any problems, unknown) how difficult have these problems made it for (unknown) (no (unknown) (unknown) Intake Note: (units (u nknown) date) unknown) (unknown) (no (unknown) (unknown) Intake performed (units (unknown) date) by: unknown) Gabriela Bagley (unknown) (no (unknown) (unknown) Intake (units (unkno wn) date) unknown) (unknown) (no (unknown) (unknown) Intake- Clincial (units (unknown) date) Staff unknown) (unknown) (no (unknown) (unknown) Last Menstural (units (unknown) date) Cycle + Details unknown) (unknown) (no (unknown) (unknown) Loc: [facility] (units (unkno wn) date) unknown) (unknown) (no (unknown) (unknown) Medical History (units (unknown) date) (Updated 08/04/22 unknown) @ 13:01 by Rabia Gooden MD) (unknown) (no (unknown) (unknown) Medications (units (un known) date) unknown) (unknown) (no (unknown) (unknown) Medications: (units (u nknown) date) unknown) (unknown) (no (unknown) (unknown) Mother Age: 51 (units (unknown) date) Stroke unknown) (unknown) (no (unknown) (unknown) New (units (unkno wn) date) unknown) (unknown) (no (unknown) (unknown) Not being able (units (unknown) date) to stop or unknown) control worryin = Several days (unknown) (no (unknown) (unknown) Note (units (unkno wn) date) unknown) (unknown) (no (unknown) (unknown) Note: (units (unkno wn) date) unknown) (unknown) (no (unknown) (unknown) Notes (units (unkno wn) date) unknown) (unknown) (no (unknown) (unknown) Other Menstrual (units (unknown) date) Period: Other unknown) (unknown) (no (unknown) (unknown) Over the last 2 (units (unknown) date) weeks, how often unknown) have you been bothered by any of the following (unknown) (no (unknown) (unknown) Oxygen Delivery (units (unknown) date) Method room air unknown) (unknown) (no (unknown) (unknown) PFSH (units (unkno wn) date) unknown) (unknown) (no (unknown) (unknown) PHQ-9 (units (unkno wn) date) unknown) (unknown) (no (unknown) (unknown) PUPP (pruritic (units (unknown) date) urticarial unknown) papules and plaques of ) (unknown) (no (unknown) (unknown) Patient: (units (unkno wn) date) Ga Hagan unknown) MR#: [id number] (unknown) (no (unknown) (unknown) Plantar (units (unkno wn) date) fasciitis (-2016) unknown) (unknown) (no (unknown) (unknown) Position Sitting (units (unknown) date) Sitting unknown) (unknown) (no (unknown) (unknown) Psoriasis (units (unkn own) date) unknown) (unknown) (no (unknown) (unknown) Pt has been (units (un known) date) snapping at unknown) everyone. Not crying frequently, very boyce and (unknown) (no (unknown) (unknown) Pulse 62 (units (unkno wn) date) unknown) (unknown) (no (unknown) (unknown) Pulse Oximetry (units (unknown) date) (%) 98 unknown) (unknown) (no (unknown) (unknown) Pulse Source (units (u nknown) date) Pulmonary Artery unknown) (unknown) (no (unknown) (unknown) Quality (units (unkno wn) date) Reporting unknown) (unknown) (no (unknown) (unknown) Questionnaires (units (unknown) date) unknown) (unknown) (no (unknown) (unknown) RASH AND ITCHING (units (unknown) date) unknown) (unknown) (no (unknown) (unknown) RASH (units (unkno wn) date) unknown) (unknown) (no (unknown) (unknown) Rash (units (unkno wn) date) unknown) (unknown) (no (unknown) (unknown) Reason For Visit (units (unknown) date) unknown) (unknown) (no (unknown) (unknown) Refilled (units (unkno wn) date) unknown) (unknown) (no (unknown) (unknown) Safety (units (unkno wn) date) unknown) (unknown) (no (unknown) (unknown) Signed By: (units (unk nown) date) unknown) (unknown) (no (unknown) (unknown) Smoking Status: (units (unknown) date) Never smoker unknown) (unknown) (no (unknown) (unknown) Social History (units (unknown) date) unknown) (unknown) (no (unknown) (unknown) Source: (units (unkno wn) date) Developed by unknown) Clarke Fowler, Mavis Brown, Russell Richardson (unknown) (no (unknown) (unknown) Status post (units (un known) date) appendectomy unknown) (-1993) (unknown) (no (unknown) (unknown) Status post (units (un known) date) delivery unknown) (01/06/11) (unknown) (no (unknown) (unknown) Status post (units (un known) date) delivery unknown) (unknown) (no (unknown) (unknown) Sulfa (units (unkno wn) date) (Sulfonamide unknown) Antibiotics) Allergy (Mild, Verified 10/28/22 11:40) (unknown) (no (unknown) (unknown) Surgical History (units (unknown) date) (Updated 09/11/22 unknown) @ 09:01 by Rabia Gooden MD) (unknown) (no (unknown) (unknown) This note may (units ( unknown) date) have been all or unknown) partially generated using voice recognition (unknown) (no (unknown) (unknown) Tired all the (units ( unknown) date) time. unknown) (unknown) (no (unknown) (unknown) To sertraline 50 (units (unknown) date) mg PO DAILY 30 unknown) tabs 3RF (unknown) (no (unknown) (unknown) Tobacco + (units (unkn own) date) Substance Use unknown) (unknown) (no (unknown) (unknown) Tobacco Status (units (unknown) date) unknown) (unknown) (no (unknown) (unknown) Total KEY-7 (units (un known) date) score (0-4 unknown) normal; 5-9 mild; 10-14 moderate; 15-21 severe): 9 (unknown) (no (unknown) (unknown) Total score: 9 (units (unknown) date) unknown) (unknown) (no (unknown) (unknown) Trouble (units (unkno wn) date) relaxin = unknown) Several days (unknown) (no (unknown) (unknown) Type(s) of (units (unk nown) date) exercise: none unknown) (unknown) (no (unknown) (unknown) Visit Reasons: 6 (units (unknown) date) WK FU unknown) (unknown) (no (unknown) (unknown) Vitals (units (unkno wn) date) unknown) (unknown) (no (unknown) (unknown) Weight 195 lb (units ( unknown) date) unknown) (unknown) (no (unknown) (unknown) Worrying too (units (u nknown) date) much about unknown) different things: 1 = Several days (unknown) (no (unknown) (unknown) [Rx Confirmed (units ( unknown) date) 10/28/22] unknown) (unknown) (no (unknown) (unknown) alcohol intake: (units (unknown) date) former unknown) (unknown) (no (unknown) (unknown) amoxicillin (units (un known) date) Allergy (Mild, unknown) Verified 10/28/22 11:40) (unknown) (no (unknown) (unknown) and colleagues, (units (unknown) date) with an unknown) educational rafat from [employer]. (unknown) (no (unknown) (unknown) and your family (units (unknown) date) down: several unknown) days (unknown) (no (unknown) (unknown) azithromycin (units (u nknown) date) Allergy (Mild, unknown) Verified 10/28/22 11:40) (unknown) (no (unknown) (unknown) caffeine: Yes (units ( unknown) date) unknown) (unknown) (no (unknown) (unknown) carbon monox (units (u nknown) date) detector in home: unknown) Yes (unknown) (no (unknown) (unknown) chlorhexidine (units ( unknown) date) Adverse Reaction unknown) (Intermediate, Verified 10/28/22 11:40) (unknown) (no (unknown) (unknown) clobetasol 0.05 (units (unknown) date) % topical unknown) ointment 1 applic topical BID #45 grams 07/01/22 [Rx (unknown) (no (unknown) (unknown) current (units (unkno wn) date) occupational unknown) exposures/hazards : No (unknown) (no (unknown) (unknown) daily servings (units (unknown) date) fruits/ve-1 unknown) (unknown) (no (unknown) (unknown) days (units (unkno wn) date) unknown) 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 in unknown) home: Yes (unknown) (no (unknown) (unknown) firearms in (units (un known) date) home: No unknown) (unknown) (no (unknown) (unknown) have occurred. (units (unknown) date) If there are any unknown) questions, please contact the Medical Records (unknown) (no (unknown) (unknown) household (units (unkn own) date) members: unknown) significant other and children (unknown) (no (unknown) (unknown) housing: (units (unkno wn) date) apartment unknown) (unknown) (no (unknown) (unknown) irritable. No (units ( unknown) date) negative side unknown) effects. (unknown) (no (unknown) (unknown) labetalol (units (unkn own) date) unknown) (unknown) (no (unknown) (unknown) latex Adverse (units ( unknown) date) Reaction (Mild, unknown) Verified 10/28/22 11:40) (unknown) (no (unknown) (unknown) lisinopril 40 mg (units (unknown) date) PO DAILY 30 tabs unknown) 0RF (unknown) (no (unknown) (unknown) lisinopril 40 mg (units (unknown) date) tablet 40 mg PO unknown) DAILY #30 tabs 10/28/22 [Rx Confirmed 10/28/22] (unknown) (no (unknown) (unknown) lives (units (unkno wn) date) independently: unknown) Yes (unknown) (no (unknown) (unknown) marital status: (units (unknown) date) unmarried,living unknown) together (unknown) (no (unknown) (unknown) may occur. (units (unk nown) date) Occasional unknown) wrong-word or 'sound-alike' substitutions may have (unknown) (no (unknown) (unknown) more than usual: (units (unknown) date) several days unknown) (unknown) (no (unknown) (unknown) nifedipine 30 mg (units (unknown) date) tablet,extended unknown) release 24 hr 30 mg PO DAILY #30 tabs 10/28/22 (unknown) (no (unknown) (unknown) nifedipine ER 30 (units (unknown) date) mg PO DAILY 30 unknown) tabs 0RF (unknown) (no (unknown) (unknown) number of (units (unkn own) date) children: 2 unknown) (unknown) (no (unknown) (unknown) occupational (units (u nknown) date) status: employed unknown) (unknown) (no (unknown) (unknown) occurred due to (units (unknown) date) the inherent unknown) limitations of voice recognition software. Please (unknown) (no (unknown) (unknown) opposite - being (units (unknown) date) so fidgety or unknown) restless that you have been moving around a lot (unknown) (no (unknown) (unknown) people?: not (units (u nknown) date) difficult at all unknown) (unknown) (no (unknown) (unknown) pets and (units (unkno wn) date) animals: Yes (1 unknown) cat (pt is not managing litter box)) (unknown) (no (unknown) (unknown) prenat.vits,miguel, (units (unknown) date) [id number] 1 unknown) tab PO DAILY 01/27/22 [History Confirmed (unknown) (no (unknown) (unknown) problems? (units (unkn own) date) unknown) (unknown) (no (unknown) (unknown) read the note (units ( unknown) date) carefully and unknown) recognize, using context, where these substitutions (unknown) (no (unknown) (unknown) seatbelt use: (units ( unknown) date) always unknown) (unknown) (no (unknown) (unknown) second hand (units (un known) date) exposure: No unknown) (unknown) (no (unknown) (unknown) sertraline 50 mg (units (unknown) date) tablet 50 mg PO unknown) DAILY #30 tabs 10/28/22 [Rx Confirmed 10/28/22] (unknown) (no (unknown) (unknown) software. (units (unkn own) date) Although every unknown) effort is made to edit content, white sidewall tire buffer errors (unknown) (no (unknown) (unknown) special fly (units ( unknown) date) needs: No unknown) (unknown) (no (unknown) (unknown) substance use (units ( unknown) date) type: marijuana unknown) (unknown) (no (unknown) (unknown) television: not (units (unknown) date) at all unknown) (unknown) (no (unknown) (unknown) typically around (units (unknown) date) bedtime. unknown) (unknown) (no (unknown) (unknown) water heater (units (u nknown) date) temp set < 120 unknown) deg: Yes (Will check and adjust if needed) (unknown) (no (unknown) (unknown) way: not at all (units (unknown) date) unknown) (unknown) (no (unknown) (unknown) well-balanced (units ( unknown) date) diet: about half unknown) the time (unknown) (no (unknown) (unknown) working smoke (units ( unknown) date) detector in home: unknown) Yes (unknown) (no (unknown) (unknown) you to do your (units (unknown) date) work, take care unknown) of things at home, or get along with other Result panel 43 (unknown) (no (unknown) (unknown) (no value) (units (unk nown) date) unknown) (unknown) (no (unknown) (unknown) (1) (units (unkno wn) date) Hypertension: unknown) (unknown) (no (unknown) (unknown) (2) Post (units (unknown) date) depression: unknown) (unknown) (no (unknown) (unknown) (3) Fatigue: (units (u nknown) date) unknown) (unknown) (no (unknown) (unknown) -CBC ordered. (units ( unknown) date) unknown) (unknown) (no (unknown) (unknown) -Patient without (units (unknown) date) significant unknown) improvement in her mood on sertraline at this (unknown) (no (unknown) (unknown) -Patient's blood (units (unknown) date) pressure is unknown) significantly elevated, does have family history of (unknown) (no (unknown) (unknown) [id number] (units (unkno wn) date) unknown) (unknown) (no (unknown) (unknown) 10/28/22 (units (unkno wn) date) unknown) (unknown) (no (unknown) (unknown) 10/28/22] (units (unkn own) date) unknown) (unknown) (no (unknown) (unknown) 1. Little (units (unkn own) date) interest or unknown) pleasure in doing things: several days (unknown) (no (unknown) (unknown) 11:41 10/28/22 (units (unknown) date) unknown) (unknown) (no (unknown) (unknown) 11:49 (units (unkno wn) date) unknown) (unknown) (no (unknown) (unknown) 2. Feeling down, (units (unknown) date) depressed, or unknown) hopeless: not at all (unknown) (no (unknown) (unknown) 2RF (units (unkno wn) date) unknown) (unknown) (no (unknown) (unknown) 3. Trouble (units (unk nown) date) falling or unknown) staying asleep, or sleeping too much: more than half the (unknown) (no (unknown) (unknown) 4. Feeling tired (units (unknown) date) or having little unknown) energy: nearly every day (unknown) (no (unknown) (unknown) 5. Poor appetite (units (unknown) date) or overeating: unknown) several days (unknown) (no (unknown) (unknown) 6 wk f/u (units (unkno wn) date) unknown) (unknown) (no (unknown) (unknown) 6. Feeling bad (units (unknown) date) about yourself - unknown) or that you are a failure or have let yourself (unknown) (no (unknown) (unknown) 7. Trouble (units (unk nown) date) concentrating on unknown) things, such as reading the newspaper or watching (unknown) (no (unknown) (unknown) 8. Moving or (units (u nknown) date) speaking so unknown) slowly that other people could have noticed? - Or the (unknown) (no (unknown) (unknown) 9. Thoughts that (units (unknown) date) you would be unknown) better off or of hurting yourself in some (unknown) (no (unknown) (unknown) Age/Sex: 32 / F (units (unknown) date) Date of Service: unknown) (unknown) (no (unknown) (unknown) Allergies (units (unkn own) date) unknown) (unknown) (no (unknown) (unknown) [facility] (units (unknown) date) Medicine unknown) (unknown) (no (unknown) (unknown) [place] (units ( unknown) date) [id number] unknown) (unknown) (no (unknown) (unknown) Assessment + (units (u nknown) date) Plan unknown) (unknown) (no (unknown) (unknown) Assessment and (units (unknown) date) Plan: unknown) (unknown) (no (unknown) (unknown) Attending Dr: (units ( unknown) date) Rabia Gooden MD unknown) (unknown) (no (unknown) (unknown) BMI 35.6 (units (unkno wn) date) unknown) (unknown) (no (unknown) (unknown) BP 168/102 H (units (u nknown) date) 166/96 H unknown) (unknown) (no (unknown) (unknown) BPs (units (unkno wn) date) 160s/100-110s. No unknown) chest pain, SOB. Swelling stable. Seeing spots (unknown) (no (unknown) (unknown) Becoming easily (units (unknown) date) annoyed or unknown) irritable: 2 = More than half the days (unknown) (no (unknown) (unknown) Being so (units (unkno wn) date) restless that it unknown) is hard to sit still: 1 = Several days (unknown) (no (unknown) (unknown) Blister (units (unkno wn) date) unknown) (unknown) (no (unknown) (unknown) Blood Pressure (units (unknown) date) Location Lt unknown) brachial Rt brachial (unknown) (no (unknown) (unknown) CV: Regular rate (units (unknown) date) and rhythm. No unknown) murmurs. (unknown) (no (unknown) (unknown) CVA at a young (units (unknown) date) age, need to more unknown) aggressively treat her blood pressures at this (unknown) (no (unknown) (unknown) Changed (units (unkno wn) date) unknown) (unknown) (no (unknown) (unknown) Chief Complaint (units (unknown) date) unknown) (unknown) (no (unknown) (unknown) Chief Complaint: (units (unknown) date) Follow-up unknown) hypertension. (unknown) (no (unknown) (unknown) Chronic cough (units ( unknown) date) (-2000) unknown) (unknown) (no (unknown) (unknown) Complete Blood (units (unknown) date) Count AUTO DIFF 4 unknown) Weeks R53.83 - Other fatigue (unknown) (no (unknown) (unknown) Confirmed (units (unkn own) date) 10/28/22] unknown) (unknown) (no (unknown) (unknown) : 1990 (units (unknown) date) Acct:[id number] unknown) (unknown) (no (unknown) (unknown) Depression (units (unk nown) date) unknown) (unknown) (no (unknown) (unknown) Depression/Bipol (units (unknown) date) ar unknown) (159/160/161/169/ 177) (unknown) (no (unknown) (unknown) Dept at (units (unkno wn) date) . unknown) (unknown) (no (unknown) (unknown) Details: (units (unkno wn) date) unknown) (unknown) (no (unknown) (unknown) Diet and (units (unkno wn) date) Exercise unknown) (unknown) (no (unknown) (unknown) Discontinued (units (u nknown) date) Reason: unknown) Provider's Order 400 mg (4 x 100 mg) PO BID 360 tabs (unknown) (no (unknown) (unknown) Discontinued (units (u nknown) date) unknown) (unknown) (no (unknown) (unknown) Documented By: (units (unknown) date) Rabia Gooden MD unknown) 10/28/22 1140 (unknown) (no (unknown) (unknown) Draft (units (unkno wn) date) unknown) (unknown) (no (unknown) (unknown) Exam Narrative (units (unknown) date) unknown) (unknown) (no (unknown) (unknown) Exam Narrative: (units (unknown) date) unknown) (unknown) (no (unknown) (unknown) Exam (units (unkno wn) date) unknown) (unknown) (no (unknown) (unknown) Extremities: (units (u nknown) date) Trace edema. unknown) (unknown) (no (unknown) (unknown) Family History (units (unknown) date) (Reviewed unknown) 07/30/22 @ 11:31 by Karina Gaytan DO) (unknown) (no (unknown) (unknown) Family Practice (units (unknown) date) Office Visit unknown) (unknown) (no (unknown) (unknown) Feeling afraid (units (unknown) date) as if something unknown) awful might happen: 2 = More than half the days (unknown) (no (unknown) (unknown) Feeling nervous, (units (unknown) date) anxious, or on unknown) edge: 1 = Several days (unknown) (no (unknown) (unknown) From sertraline (units (unknown) date) 25 mg PO DAILY 30 unknown) tabs 3RF (unknown) (no (unknown) (unknown) KEY-7 (units (unkno wn) date) unknown) (unknown) (no (unknown) (unknown) General: No (units (un known) date) acute distress, unknown) sitting comfortably on bench, appears well. (unknown) (no (unknown) (unknown) Grandfather (units (un known) date) Hypertension unknown) (unknown) (no (unknown) (unknown) Grandmother Type (units (unknown) date) 2 diabetes unknown) mellitus (unknown) (no (unknown) (unknown) H/O bilateral (units ( unknown) date) salpingectomy unknown) (unknown) (no (unknown) (unknown) HPI (units (unkno wn) date) unknown) (unknown) (no (unknown) (unknown) Height 5 ft 2 in (units (unknown) date) unknown) (unknown) (no (unknown) (unknown) Hypertension (units (u nknown) date) unknown) (unknown) (no (unknown) (unknown) ITCHING (units (unkno wn) date) unknown) (unknown) (no (unknown) (unknown) If you checked (units (unknown) date) off any problems, unknown) how difficult have these problems made it for (unknown) (no (unknown) (unknown) Intake Note: (units (u nknown) date) unknown) (unknown) (no (unknown) (unknown) Intake performed (units (unknown) date) by: unknown) Gabriela Bagley (unknown) (no (unknown) (unknown) Intake (units (unkno wn) date) unknown) (unknown) (no (unknown) (unknown) Intake- Clincial (units (unknown) date) Staff unknown) (unknown) (no (unknown) (unknown) Last Menstural (units (unknown) date) Cycle + Details unknown) (unknown) (no (unknown) (unknown) Loc: [facility] (units (unkno wn) date) unknown) (unknown) (no (unknown) (unknown) Medical History (units (unknown) date) (Updated 08/04/22 unknown) @ 13:01 by Rabia Gooden MD) (unknown) (no (unknown) (unknown) Medications (units (un known) date) unknown) (unknown) (no (unknown) (unknown) Medications: (units (u nknown) date) unknown) (unknown) (no (unknown) (unknown) Mother Age: 51 (units (unknown) date) Stroke unknown) (unknown) (no (unknown) (unknown) New (units (unkno wn) date) unknown) (unknown) (no (unknown) (unknown) Not being able (units (unknown) date) to stop or unknown) control worryin = Several days (unknown) (no (unknown) (unknown) Note (units (unkno wn) date) unknown) (unknown) (no (unknown) (unknown) Note: (units (unkno wn) date) unknown) (unknown) (no (unknown) (unknown) Notes (units (unkno wn) date) unknown) (unknown) (no (unknown) (unknown) Orders (units (unkno wn) date) unknown) (unknown) (no (unknown) (unknown) Orders: (units (unkno wn) date) unknown) (unknown) (no (unknown) (unknown) Other Menstrual (units (unknown) date) Period: Other unknown) (unknown) (no (unknown) (unknown) Over the last 2 (units (unknown) date) weeks, how often unknown) have you been bothered by any of the following (unknown) (no (unknown) (unknown) Oxygen Delivery (units (unknown) date) Method room air unknown) (unknown) (no (unknown) (unknown) PFSH (units (unkno wn) date) unknown) (unknown) (no (unknown) (unknown) PHQ-9 (units (unkno wn) date) unknown) (unknown) (no (unknown) (unknown) PUPP (pruritic (units (unknown) date) urticarial unknown) papules and plaques of ) (unknown) (no (unknown) (unknown) Patient: (units (unkno wn) date) Ga Hagan unknown) MR#: [id number] (unknown) (no (unknown) (unknown) Plantar (units (unkno wn) date) fasciitis (-2016) unknown) (unknown) (no (unknown) (unknown) Position Sitting (units (unknown) date) Sitting unknown) (unknown) (no (unknown) (unknown) Psoriasis (units (unkn own) date) unknown) (unknown) (no (unknown) (unknown) Pt has been (units (un known) date) snapping at unknown) everyone. Not crying frequently, very boyce and (unknown) (no (unknown) (unknown) Pulse 62 (units (unkno wn) date) unknown) (unknown) (no (unknown) (unknown) Pulse Oximetry (units (unknown) date) (%) 98 unknown) (unknown) (no (unknown) (unknown) Pulse Source (units (u nknown) date) Pulmonary Artery unknown) (unknown) (no (unknown) (unknown) Quality (units (unkno wn) date) Reporting unknown) (unknown) (no (unknown) (unknown) Questionnaires (units (unknown) date) unknown) (unknown) (no (unknown) (unknown) RASH AND ITCHING (units (unknown) date) unknown) (unknown) (no (unknown) (unknown) RASH (units (unkno wn) date) unknown) (unknown) (no (unknown) (unknown) Rash (units (unkno wn) date) unknown) (unknown) (no (unknown) (unknown) Reason For Visit (units (unknown) date) unknown) (unknown) (no (unknown) (unknown) Refilled (units (unkno wn) date) unknown) (unknown) (no (unknown) (unknown) Respiratory: (units (u nknown) date) Clear to unknown) auscultation bilaterally. (unknown) (no (unknown) (unknown) Safety (units (unkno wn) date) unknown) (unknown) (no (unknown) (unknown) Signed By: (units (unk nown) date) unknown) (unknown) (no (unknown) (unknown) Smoking Status: (units (unknown) date) Never smoker unknown) (unknown) (no (unknown) (unknown) Social History (units (unknown) date) unknown) (unknown) (no (unknown) (unknown) Source: (units (unkno wn) date) Developed by unknown) Clarke Fowler, Mavis Brown, Russell Richardson (unknown) (no (unknown) (unknown) Status post (units (un known) date) appendectomy unknown) () (unknown) (no (unknown) (unknown) Status post (units (un known) date) delivery unknown) (01/06/11) (unknown) (no (unknown) (unknown) Status post (units (un known) date) delivery unknown) (unknown) (no (unknown) (unknown) Sulfa (units (unkno wn) date) (Sulfonamide unknown) Antibiotics) Allergy (Mild, Verified 10/28/22 11:40) (unknown) (no (unknown) (unknown) Surgical History (units (unknown) date) (Updated 09/11/22 unknown) @ 09:01 by Rabia Gooden MD) (unknown) (no (unknown) (unknown) The patient (units (un known) date) feels that she is unknown) tired all the time despite getting relatively (unknown) (no (unknown) (unknown) The patient has (units (unknown) date) not noticed a unknown) significant improvement in her mood since starting (unknown) (no (unknown) (unknown) The patient is (units ( unknown) date) here to follow up unknown) on her hypertension. She reports that her blood (unknown) (no (unknown) (unknown) This note may (units ( unknown) date) have been all or unknown) partially generated using voice recognition (unknown) (no (unknown) (unknown) Tired all the (units ( unknown) date) time. unknown) (unknown) (no (unknown) (unknown) To sertraline 50 (units (unknown) date) mg PO DAILY 30 unknown) tabs 3RF (unknown) (no (unknown) (unknown) Tobacco + (units (unkn own) date) Substance Use unknown) (unknown) (no (unknown) (unknown) Tobacco Status (units (unknown) date) unknown) (unknown) (no (unknown) (unknown) Total KEY-7 (units (un known) date) score (0-4 unknown) normal; 5-9 mild; 10-14 moderate; 15-21 severe): 9 (unknown) (no (unknown) (unknown) Total score: 9 (units (unknown) date) unknown) (unknown) (no (unknown) (unknown) Trouble (units (unkno wn) date) relaxin = unknown) Several days (unknown) (no (unknown) (unknown) Type(s) of (units (unk nown) date) exercise: none unknown) (unknown) (no (unknown) (unknown) Visit Reasons: 6 (units (unknown) date) WK FU unknown) (unknown) (no (unknown) (unknown) Vitals (units (unkno wn) date) unknown) (unknown) (no (unknown) (unknown) Weight 195 lb (units ( unknown) date) unknown) (unknown) (no (unknown) (unknown) Worrying too (units (u nknown) date) much about unknown) different things: 1 = Several days (unknown) (no (unknown) (unknown) [Rx Confirmed (units ( unknown) date) 10/28/22] unknown) (unknown) (no (unknown) (unknown) adequate sleep. (units (unknown) date) She requests that unknown) we check a blood count to ensure she is not (unknown) (no (unknown) (unknown) alcohol intake: (units (unknown) date) former unknown) (unknown) (no (unknown) (unknown) amoxicillin (units (un known) date) Allergy (Mild, unknown) Verified 10/28/22 11:40) (unknown) (no (unknown) (unknown) and colleagues, (units (unknown) date) with an unknown) educational rafat from [employer]. (unknown) (no (unknown) (unknown) and your family (units (unknown) date) down: several unknown) days (unknown) (no (unknown) (unknown) anemic. (units (unkno wn) date) unknown) (unknown) (no (unknown) (unknown) azithromycin (units (u nknown) date) Allergy (Mild, unknown) Verified 10/28/22 11:40) (unknown) (no (unknown) (unknown) breath. She (units (un known) date) states her unknown) swelling is stable. She does sometimes see spots in her (unknown) (no (unknown) (unknown) caffeine: Yes (units ( unknown) date) unknown) (unknown) (no (unknown) (unknown) carbon monox (units (u nknown) date) detector in home: unknown) Yes (unknown) (no (unknown) (unknown) chlorhexidine (units ( unknown) date) Adverse Reaction unknown) (Intermediate, Verified 10/28/22 11:40) (unknown) (no (unknown) (unknown) clobetasol 0.05 (units (unknown) date) % topical unknown) ointment 1 applic topical BID #45 grams 07/01/22 [Rx (unknown) (no (unknown) (unknown) current (units (unkno wn) date) occupational unknown) exposures/hazards : No (unknown) (no (unknown) (unknown) daily servings (units (unknown) date) fruits/ve-1 unknown) (unknown) (no (unknown) (unknown) days (units (unkno wn) date) unknown) 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 in unknown) home: Yes (unknown) (no (unknown) (unknown) firearms in (units (un known) date) home: No unknown) (unknown) (no (unknown) (unknown) have been in the (units (unknown) date) 160s/100s to unknown) 110s. She denies any chest pain or shortness of (unknown) (no (unknown) (unknown) have occurred. (units (unknown) date) If there are any unknown) questions, please contact the Medical Records (unknown) (no (unknown) (unknown) household (units (unkn own) date) members: unknown) significant other and children (unknown) (no (unknown) (unknown) housing: (units (unkno wn) date) apartment unknown) (unknown) (no (unknown) (unknown) irritable. No (units ( unknown) date) negative side unknown) effects. (unknown) (no (unknown) (unknown) is snapping at (units (unknown) date) everyone. She is unknown) not crying all that often, but states that she (unknown) (no (unknown) (unknown) is very boyce (units ( unknown) date) and irritable. unknown) She denies any current SI/HI. (unknown) (no (unknown) (unknown) labetalol (units (unkn own) date) unknown) (unknown) (no (unknown) (unknown) latex Adverse (units ( unknown) date) Reaction (Mild, unknown) Verified 10/28/22 11:40) (unknown) (no (unknown) (unknown) lisinopril 40 mg (units (unknown) date) PO DAILY 30 tabs unknown) 0RF (unknown) (no (unknown) (unknown) lisinopril 40 mg (units (unknown) date) tablet 40 mg PO unknown) DAILY #30 tabs 10/28/22 [Rx Confirmed 10/28/22] (unknown) (no (unknown) (unknown) lives (units (unkno wn) date) independently: unknown) Yes (unknown) (no (unknown) (unknown) marital status: (units (unknown) date) unmarried,living unknown) together (unknown) (no (unknown) (unknown) may occur. (units (unk nown) date) Occasional unknown) wrong-word or 'sound-alike' substitutions may have (unknown) (no (unknown) (unknown) medications (units (un known) date) prior to that unknown) time. (unknown) (no (unknown) (unknown) mg daily and (units (u nknown) date) follow up as unknown) above. (unknown) (no (unknown) (unknown) more than usual: (units (unknown) date) several days unknown) (unknown) (no (unknown) (unknown) nifedipine 30 mg (units (unknown) date) tablet,extended unknown) release 24 hr 30 mg PO DAILY #30 tabs 10/28/22 (unknown) (no (unknown) (unknown) nifedipine ER 30 (units (unknown) date) mg PO DAILY 30 unknown) tabs 0RF (unknown) (no (unknown) (unknown) number of (units (unkn own) date) children: 2 unknown) (unknown) (no (unknown) (unknown) occupational (units (u nknown) date) status: employed unknown) (unknown) (no (unknown) (unknown) occurred due to (units (unknown) date) the inherent unknown) limitations of voice recognition software. Please (unknown) (no (unknown) (unknown) opposite - being (units (unknown) date) so fidgety or unknown) restless that you have been moving around a lot (unknown) (no (unknown) (unknown) people?: not (units (u nknown) date) difficult at all unknown) (unknown) (no (unknown) (unknown) pets and (units (unkno wn) date) animals: Yes (1 unknown) cat (pt is not managing litter box)) (unknown) (no (unknown) (unknown) point, however, (units (unknown) date) no negative side unknown) effects. We will trial increasing dosing to 50 (unknown) (no (unknown) (unknown) prenat.vits,miguel, (units (unknown) date) [id number] 1 unknown) tab PO DAILY 01/27/22 [History Confirmed (unknown) (no (unknown) (unknown) pressure when (units ( unknown) date) that occurs. unknown) (unknown) (no (unknown) (unknown) pressures at (units (u nknown) date) home have been unknown) quite elevated since stopping the nifedipine. They (unknown) (no (unknown) (unknown) problems? (units (unkn own) date) unknown) (unknown) (no (unknown) (unknown) read the note (units ( unknown) date) carefully and unknown) recognize, using context, where these substitutions (unknown) (no (unknown) (unknown) seatbelt use: (units ( unknown) date) always unknown) (unknown) (no (unknown) (unknown) second hand (units (un known) date) exposure: No unknown) (unknown) (no (unknown) (unknown) sertraline 50 mg (units (unknown) date) tablet 50 mg PO unknown) DAILY #30 tabs 10/28/22 [Rx Confirmed 10/28/22] (unknown) (no (unknown) (unknown) software. (units (unkn own) date) Although every unknown) effort is made to edit content, white sidewall tire buffer errors (unknown) (no (unknown) (unknown) special fly (units ( unknown) date) needs: No unknown) (unknown) (no (unknown) (unknown) substance use (units ( unknown) date) type: marijuana unknown) (unknown) (no (unknown) (unknown) television: not (units (unknown) date) at all unknown) (unknown) (no (unknown) (unknown) the sertraline, (units (unknown) date) however, denies unknown) any side effects. She continues to feel like she (unknown) (no (unknown) (unknown) time. We will (units ( unknown) date) transition from unknown) labetalol to lisinopril 40 mg daily, in addition (unknown) (no (unknown) (unknown) to having the (units ( unknown) date) patient restart unknown) her carvedilol. We will have her follow up in 3 (unknown) (no (unknown) (unknown) typically around (units (unknown) date) bedtime. unknown) (unknown) (no (unknown) (unknown) vision, but this (units (unknown) date) is usually around unknown) bedtime. She does not always check her blood (unknown) (no (unknown) (unknown) water heater (units (u nknown) date) temp set < 120 unknown) deg: Yes (Will check and adjust if needed) (unknown) (no (unknown) (unknown) way: not at all (units (unknown) date) unknown) (unknown) (no (unknown) (unknown) weeks with her (units (unknown) date) blood pressure unknown) log to ensure improvement. She will let us know (unknown) (no (unknown) (unknown) well-balanced (units ( unknown) date) diet: about half unknown) the time (unknown) (no (unknown) (unknown) within a week if (units (unknown) date) no improvement in unknown) her blood pressure, however, and may adjust (unknown) (no (unknown) (unknown) working smoke (units ( unknown) date) detector in home: unknown) Yes (unknown) (no (unknown) (unknown) you to do your (units (unknown) date) work, take care unknown) of things at home, or get along with other Social History No information. Vital Signs No information.
== END 2022-10-29 18:23 | disposition home or self-care (01) ==
LOC: ED 17:02
DX: R60.9 Edema, unspecified (principal); R42 Dizziness and giddiness; T50.995A Adverse effect of other drugs, medicaments and biological substances, initial encounter
CPT/HCPCS: 99281; 99284

== ENCOUNTER 2023-01-08 10:02 | Emergency (ER) | payer MEDICAID ==
--- OUTSIDE RECORDS SUMMARY | 2023-01-08 10:13 | EXTERNAL MEDICAL SUMMARY RPT | Continuity of Care Document ---
Author Name Unknown Address [address] [place] [address] Phone Organization [facility] Address [address] [place] [address] Phone Results/Labs test date author facility value unit interpretation Result panel 1 (unknown) (no date) (unknown) (unknown) (no value) (units unknown) (unknown) (unknown) (no date) (unknown) (unknown) [id number] (units unknown) (unknown) (unknown) (no date) (unknown) (unknown) 10/28/22 (units unknown) (unknown) (unknown) (no date) (unknown) (unknown) 10/28/22] (units unknown) (unknown) (unknown) (no date) (unknown) (unknown) 11:41 (units unknown) (unknown) (unknown) (no date) (unknown) (unknown) 6 wk f/u (units unknown) (unknown) (unknown) (no date) (unknown) (unknown) Age/Sex: 32 / F Date of Service: (units unknown) (unknown) (unknown) (no date) (unknown) (unknown) Allergies (units unknown) (unknown) (unknown) (no date) (unknown) (unknown) [facility] Medicine (units unknown) (unknown) (unknown) (no date) (unknown) (unknown) [place] [address] (units unknown) (unknown) (unknown) (no date) (unknown) (unknown) Attending Dr: Rabia Gooden MD (units unknown) (unknown) (unknown) (no date) (unknown) (unknown) BMI 35.6 (units unknown) (unknown) (unknown) (no date) (unknown) (unknown) BP 168/102 H (units unknown) (unknown) (unknown) (no date) (unknown) (unknown) Blister (units unknown) (unknown) (unknown) (no date) (unknown) (unknown) Blood Pressure Location Lt brachial (units unknown) (unknown) (unknown) (no date) (unknown) (unknown) Chronic cough (-2000) (units unknown) (unknown) (unknown) (no date) (unknown) (unknown) Confirmed 10/28/22] (units unknown) (unknown) (unknown) (no date) (unknown) (unknown) : 0 Acct:[id number] (units unknown) (unknown) (unknown) (no date) (unknown) (unknown) Depression (units unknown) (unknown) (unknown) (no date) (unknown) (unknown) Dept at . (units unknown) (unknown) (unknown) (no date) (unknown) (unknown) Diet and Exercise (u nits unknown) (unknown) (unknown) (no date) (unknown) (unknown) Documented By: Rabia Gooden MD 10/28/22 1140 (units unknown) (unknown) (unknown) (no date) (unknown) (unknown) Draft (units unknown) (unknown) (unknown) (no date) (unknown) (unknown) Family History (units unknown) (unknown) (unknown) (no date) (unknown) (unknown) Family Practic e Office Visit (units unknown) (unknown) (unknown) (no date) (unknown) (unknown) Grandfather Hypertension (units unknown) (unknown) (unknown) (no date) (unknown) (unknown) Grandmother Ty pe 2 diabetes mellitus (units unknown) (unknown) (unknown) (no date) (unknown) (unknown) H/O bilateral salpingectomy (units unknown) (unknown) (unknown) (no date) (unknown) (unknown) Height 5 ft 2 in (un its unknown) (unknown) (unknown) (no date) (unknown) (unknown) Hypertension (units unknown) (unknown) (unknown) (no date) (unknown) (unknown) ITCHING (units unknown) (unknown) (unknown) (no date) (unknown) (unknown) Intake Note: (units unknown) (unknown) (unknown) (no date) (unknown) (unknown) Intake perform ed by: Gabriela Bagley (units unknown) (unknown) (unknown) (no date) (unknown) (unknown) Intake (units unknown) (unknown) (unknown) (no date) (unknown) (unknown) Intake- Isreal al Staff (units unknown) (unknown) (unknown) (no date) (unknown) (unknown) Last Menstural Cycle + Details (units unknown) (unknown) (unknown) (no date) (unknown) (unknown) Loc: [facility] (units unknown) (unknown) (unknown) (no date) (unknown) (unknown) Medical Histor y (Updated 08/04/22 @ 13:01 by Rabia Gooden MD) (units unknown) (unknown) (unknown) (no date) (unknown) (unknown) Medications (units unknown) (unknown) (unknown) (no date) (unknown) (unknown) Mother Age: 51 Stroke (units unknown) (unknown) (unknown) (no date) (unknown) (unknown) Other Menstrua l Period: Other (units unknown) (unknown) (unknown) (no date) (unknown) (unknown) Oxygen Deliver y Method room air (units unknown) (unknown) (unknown) (no date) (unknown) (unknown) PFSH (units unknown) (unknown) (unknown) (no date) (unknown) (unknown) PUPP (pruritic urticarial papules and plaques of ) (units unknown) (unknown) (unknown) (no date) (unknown) (unknown) Patient: Ga Hagan MR#: [id number] (units unknown) (unknown) (unknown) (no date) (unknown) (unknown) Plantar fascii tis (-2015) (units unknown) (unknown) (unknown) (no date) (unknown) (unknown) Position Sitting (un its unknown) (unknown) (unknown) (no date) (unknown) (unknown) Psoriasis (units unknown) (unknown) (unknown) (no date) (unknown) (unknown) Pulse 62 (units unknown) (unknown) (unknown) (no date) (unknown) (unknown) Pulse Oximetry (%) 98 (units unknown) (unknown) (unknown) (no date) (unknown) (unknown) Pulse Source Pulmonary Artery (units unknown) (unknown) (unknown) (no date) (unknown) (unknown) RASH AND ITCHING (un its unknown) (unknown) (unknown) (no date) (unknown) (unknown) RASH (units unknown) (unknown) (unknown) (no date) (unknown) (unknown) Rash (units unknown) (unknown) (unknown) (no date) (unknown) (unknown) Reason For Visit (un its unknown) (unknown) (unknown) (no date) (unknown) (unknown) Safety (units unknown) (unknown) (unknown) (no date) (unknown) (unknown) Signed By: (units unknown) (unknown) (unknown) (no date) (unknown) (unknown) Smoking Status : Never smoker (units unknown) (unknown) (unknown) (no date) (unknown) (unknown) Social History (unit s unknown) (unknown) (unknown) (no date) (unknown) (unknown) Status post appendectomy (-1993) (units unknown) (unknown) (unknown) (no date) (unknown) (unknown) Status post delivery (01/06/11) (units unknown) (unknown) (unknown) (no date) (unknown) (unknown) Status post delivery (units unknown) (unknown) (unknown) (no date) (unknown) (unknown) Sulfa (Sulfona mide Antibiotics) Allergy (Mild, Verified 10/28/22 11:40) (units unknown) (unknown) (unknown) (no date) (unknown) (unknown) Surgical Histo ry (Updated 09/11/22 @ 09:01 by Rabia Gooden MD) (units unknown) (unknown) (unknown) (no date) (unknown) (unknown) This note may have been all or partially generated using voice recognition (units unknown) (unknown) (unknown) (no date) (unknown) (unknown) Tobacco + Subs tance Use (units unknown) (unknown) (unknown) (no date) (unknown) (unknown) Tobacco Status (unit s unknown) (unknown) (unknown) (no date) (unknown) (unknown) Type(s) of exercise: none (units unknown) (unknown) (unknown) (no date) (unknown) (unknown) Visit Reasons: 6 WK FU (units unknown) (unknown) (unknown) (no date) (unknown) (unknown) Vitals (units unknown) (unknown) (unknown) (no date) (unknown) (unknown) Weight 195 lb (units unknown) (unknown) (unknown) (no date) (unknown) (unknown) [Rx Confirmed 10/28/22] (units unknown) (unknown) (unknown) (no date) (unknown) (unknown) alcohol intake : former (units unknown) (unknown) (unknown) (no date) (unknown) (unknown) amoxicillin Al lergy (Mild, Verified 10/28/22 11:40) (units unknown) (unknown) (unknown) (no date) (unknown) (unknown) azithromycin Allergy (Mild, Verified 10/28/22 11:40) (units unknown) (unknown) (unknown) (no date) (unknown) (unknown) caffeine: Yes (units unknown) (unknown) (unknown) (no date) (unknown) (unknown) carbon monox detector in home: Yes (units unknown) (unknown) (unknown) (no date) (unknown) (unknown) chlorhexidine Adverse Reaction (Intermediate, Verified 10/28/22 11:40) (units unknown) (unknown) (unknown) (no date) (unknown) (unknown) clobetasol 0.0 5 % topical ointment 1 applic topical BID #45 grams 07/01/22 [Rx (units unknown) (unknown) (unknown) (no date) (unknown) (unknown) current occupational exposures/hazards: No (units unknown) (unknown) (unknown) (no date) (unknown) (unknown) daily servings fruits/ve-1 (units unknown) (unknown) (unknown) (no date) (unknown) (unknown) do you feel sa fe at home: Yes (units unknown) (unknown) (unknown) (no date) (unknown) (unknown) during the pas t year weight has: remained stable (units unknown) (unknown) (unknown) (no date) (unknown) (unknown) education leve l: other (units unknown) (unknown) (unknown) (no date) (unknown) (unknown) fire extinguis her in home: Yes (units unknown) (unknown) (unknown) (no date) (unknown) (unknown) firearms in ho me: No (units unknown) (unknown) (unknown) (no date) (unknown) (unknown) have occurred. If there are any questions, please contact the Medical Records (units unknown) (unknown) (unknown) (no date) (unknown) (unknown) household memb ers: significant other and children (units unknown) (unknown) (unknown) (no date) (unknown) (unknown) housing: apartment ( units unknown) (unknown) (unknown) (no date) (unknown) (unknown) labetalol 100 mg tablet 400 mg PO BID #360 tabs 08/04/22 [Rx Confirmed 10/28/22] (units unknown) (unknown) (unknown) (no date) (unknown) (unknown) latex Adverse Reaction (Mild, Verified 10/28/22 11:40) (units unknown) (unknown) (unknown) (no date) (unknown) (unknown) lives independently: Yes (units unknown) (unknown) (unknown) (no date) (unknown) (unknown) marital status : unmarried,living together (units unknown) (unknown) (unknown) (no date) (unknown) (unknown) may occur. Occasional wrong-word or 'sound-alike' substitutions may have (units unknown) (unknown) (unknown) (no date) (unknown) (unknown) nifedipine 30 mg tablet,extended release 24 hr 30 mg PO DAILY #30 tabs 08/04/22 (units unknown) (unknown) (unknown) (no date) (unknown) (unknown) number of chil dren: 2 (units unknown) (unknown) (unknown) (no date) (unknown) (unknown) occupational status: employed (units unknown) (unknown) (unknown) (no date) (unknown) (unknown) occurred due t o the inherent limitations of voice recognition software. Please (units unknown) (unknown) (unknown) (no date) (unknown) (unknown) pets and anima ls: Yes (1 cat (pt is not managing litter box)) (units unknown) (unknown) (unknown) (no date) (unknown) (unknown) prenat.vits,ca l,min -iron-folic 1 tab PO DAILY 01/27/22 [History Confirmed (units unknown) (unknown) (unknown) (no date) (unknown) (unknown) read the note carefully and recognize, using context, where these substitutions (units unknown) (unknown) (unknown) (no date) (unknown) (unknown) seatbelt use: always (units unknown) (unknown) (unknown) (no date) (unknown) (unknown) second hand exposure: No (units unknown) (unknown) (unknown) (no date) (unknown) (unknown) sertraline 25 mg tablet 25 mg PO DAILY #30 tabs 09/14/22 [Rx Confirmed 10/28/22] (units unknown) (unknown) (unknown) (no date) (unknown) (unknown) software. Alth ough every effort is made to edit content, right of way man errors (units unknown) (unknown) (unknown) (no date) (unknown) (unknown) special fly needs: No (units unknown) (unknown) (unknown) (no date) (unknown) (unknown) substance use type: marijuana (units unknown) (unknown) (unknown) (no date) (unknown) (unknown) water heater t emp set < 120 deg: Yes (Will check and adjust if needed) (units unknown) (unknown) (unknown) (no date) (unknown) (unknown) well-balanced diet: about half the time (units unknown) (unknown) (unknown) (no date) (unknown) (unknown) working smoke detector in home: Yes (units unknown) (unknown) Result panel 2 (unknown) (no date) (unknown) (unknown) (no value) (units unknown) (unknown) (unknown) (no date) (unknown) (unknown) [id number] (units unknown) (unknown) (unknown) (no date) (unknown) (unknown) 10/28/22 (units unknown) (unknown) (unknown) (no date) (unknown) (unknown) 10/28/22] (units unknown) (unknown) (unknown) (no date) (unknown) (unknown) 11:41 10/28/22 (unit s unknown) (unknown) (unknown) (no date) (unknown) (unknown) 11:49 (units unknown) (unknown) (unknown) (no date) (unknown) (unknown) 6 wk f/u (units unknown) (unknown) (unknown) (no date) (unknown) (unknown) Age/Sex: 32 / F Date of Service: (units unknown) (unknown) (unknown) (no date) (unknown) (unknown) Allergies (units unknown) (unknown) (unknown) (no date) (unknown) (unknown) [facility] (units unknown) (unknown) (unknown) (no date) (unknown) (unknown) [place] [id number] (units unknown) (unknown) (unknown) (no date) (unknown) (unknown) Attending Dr: Rabia Gooden MD (units unknown) (unknown) (unknown) (no date) (unknown) (unknown) BMI 35.6 (units unknown) (unknown) (unknown) (no date) (unknown) (unknown) BP 168/102 H 1 66/96 H (units unknown) (unknown) (unknown) (no date) (unknown) (unknown) BPs 160s/100-1 10s. No chest pain, SOB. Swelling stable. Seeing spots (units unknown) (unknown) (unknown) (no date) (unknown) (unknown) Blister (units unknown) (unknown) (unknown) (no date) (unknown) (unknown) Blood Pressure Location Lt brachial Rt brachial (units unknown) (unknown) (unknown) (no date) (unknown) (unknown) Chronic cough (-2000) (units unknown) (unknown) (unknown) (no date) (unknown) (unknown) Confirmed 10/28/22] (units unknown) (unknown) (unknown) (no date) (unknown) (unknown) : 0 Acct:[id number] (units unknown) (unknown) (unknown) (no date) (unknown) (unknown) Depression (units unknown) (unknown) (unknown) (no date) (unknown) (unknown) Dept at . (units unknown) (unknown) (unknown) (no date) (unknown) (unknown) Diet and Exercise (u nits unknown) (unknown) (unknown) (no date) (unknown) (unknown) Documented By: Rabia Gooden MD 10/28/22 1140 (units unknown) (unknown) (unknown) (no date) (unknown) (unknown) Draft (units unknown) (unknown) (unknown) (no date) (unknown) (unknown) Family History (units unknown) (unknown) (unknown) (no date) (unknown) (unknown) Family Practic e Office Visit (units unknown) (unknown) (unknown) (no date) (unknown) (unknown) Grandfather Hypertension (units unknown) (unknown) (unknown) (no date) (unknown) (unknown) Grandmother Ty pe 2 diabetes mellitus (units unknown) (unknown) (unknown) (no date) (unknown) (unknown) H/O bilateral salpingectomy (units unknown) (unknown) (unknown) (no date) (unknown) (unknown) Height 5 ft 2 in (un its unknown) (unknown) (unknown) (no date) (unknown) (unknown) Hypertension (units unknown) (unknown) (unknown) (no date) (unknown) (unknown) ITCHING (units unknown) (unknown) (unknown) (no date) (unknown) (unknown) Intake Note: (units unknown) (unknown) (unknown) (no date) (unknown) (unknown) Intake perform ed by: Gabriela Bagley (units unknown) (unknown) (unknown) (no date) (unknown) (unknown) Intake (units unknown) (unknown) (unknown) (no date) (unknown) (unknown) Intake- Isreal mcfarlane Staff (units unknown) (unknown) (unknown) (no date) (unknown) (unknown) Last Menstural Cycle + Details (units unknown) (unknown) (unknown) (no date) (unknown) (unknown) Loc: [facility] (units unknown) (unknown) (unknown) (no date) (unknown) (unknown) Medical Histor y (Updated 08/04/22 @ 13:01 by Rabia Gooden MD) (units unknown) (unknown) (unknown) (no date) (unknown) (unknown) Medications (units unknown) (unknown) (unknown) (no date) (unknown) (unknown) Mother Age: 51 Stroke (units unknown) (unknown) (unknown) (no date) (unknown) (unknown) Note (units unknown) (unknown) (unknown) (no date) (unknown) (unknown) Note: (units unknown) (unknown) (unknown) (no date) (unknown) (unknown) Notes (units unknown) (unknown) (unknown) (no date) (unknown) (unknown) Other Menstrua l Period: Other (units unknown) (unknown) (unknown) (no date) (unknown) (unknown) Oxygen Deliver y Method room air (units unknown) (unknown) (unknown) (no date) (unknown) (unknown) PFSH (units unknown) (unknown) (unknown) (no date) (unknown) (unknown) PUPP (pruritic urticarial papules and plaques of ) (units unknown) (unknown) (unknown) (no date) (unknown) (unknown) Patient: Ga Hagan MR#: [id number] (units unknown) (unknown) (unknown) (no date) (unknown) (unknown) Plantar fascii tis (-2016) (units unknown) (unknown) (unknown) (no date) (unknown) (unknown) Position Sitti ng Sitting (units unknown) (unknown) (unknown) (no date) (unknown) (unknown) Psoriasis (units unknown) (unknown) (unknown) (no date) (unknown) (unknown) Pt has been snapping at everyone. Not crying frequently, very boyce and (units unknown) (unknown) (unknown) (no date) (unknown) (unknown) Pulse 62 (units unknown) (unknown) (unknown) (no date) (unknown) (unknown) Pulse Oximetry (%) 98 (units unknown) (unknown) (unknown) (no date) (unknown) (unknown) Pulse Source Pulmonary Artery (units unknown) (unknown) (unknown) (no date) (unknown) (unknown) RASH AND ITCHING (un its unknown) (unknown) (unknown) (no date) (unknown) (unknown) RASH (units unknown) (unknown) (unknown) (no date) (unknown) (unknown) Rash (units unknown) (unknown) (unknown) (no date) (unknown) (unknown) Reason For Visit (un its unknown) (unknown) (unknown) (no date) (unknown) (unknown) Safety (units unknown) (unknown) (unknown) (no date) (unknown) (unknown) Signed By: (units unknown) (unknown) (unknown) (no date) (unknown) (unknown) Smoking Status : Never smoker (units unknown) (unknown) (unknown) (no date) (unknown) (unknown) Social History (unit s unknown) (unknown) (unknown) (no date) (unknown) (unknown) Status post appendectomy (-1993) (units unknown) (unknown) (unknown) (no date) (unknown) (unknown) Status post delivery (01/06/11) (units unknown) (unknown) (unknown) (no date) (unknown) (unknown) Status post delivery (units unknown) (unknown) (unknown) (no date) (unknown) (unknown) Sulfa (Sulfona mide Antibiotics) Allergy (Mild, Verified 10/28/22 11:40) (units unknown) (unknown) (unknown) (no date) (unknown) (unknown) Surgical Histo ry (Updated 09/11/22 @ 09:01 by Rabia Gooden MD) (units unknown) (unknown) (unknown) (no date) (unknown) (unknown) This note may have been all or partially generated using voice recognition (units unknown) (unknown) (unknown) (no date) (unknown) (unknown) Tired all the time. (units unknown) (unknown) (unknown) (no date) (unknown) (unknown) Tobacco + Subs tance Use (units unknown) (unknown) (unknown) (no date) (unknown) (unknown) Tobacco Status (unit s unknown) (unknown) (unknown) (no date) (unknown) (unknown) Type(s) of exercise: none (units unknown) (unknown) (unknown) (no date) (unknown) (unknown) Visit Reasons: 6 WK FU (units unknown) (unknown) (unknown) (no date) (unknown) (unknown) Vitals (units unknown) (unknown) (unknown) (no date) (unknown) (unknown) Weight 195 lb (units unknown) (unknown) (unknown) (no date) (unknown) (unknown) [Rx Confirmed 10/28/22] (units unknown) (unknown) (unknown) (no date) (unknown) (unknown) alcohol intake : former (units unknown) (unknown) (unknown) (no date) (unknown) (unknown) amoxicillin Al lergy (Mild, Verified 10/28/22 11:40) (units unknown) (unknown) (unknown) (no date) (unknown) (unknown) azithromycin Allergy (Mild, Verified 10/28/22 11:40) (units unknown) (unknown) (unknown) (no date) (unknown) (unknown) caffeine: Yes (units unknown) (unknown) (unknown) (no date) (unknown) (unknown) carbon monox detector in home: Yes (units unknown) (unknown) (unknown) (no date) (unknown) (unknown) chlorhexidine Adverse Reaction (Intermediate, Verified 10/28/22 11:40) (units unknown) (unknown) (unknown) (no date) (unknown) (unknown) clobetasol 0.0 5 % topical ointment 1 applic topical BID #45 grams 07/01/22 [Rx (units unknown) (unknown) (unknown) (no date) (unknown) (unknown) current occupational exposures/hazards: No (units unknown) (unknown) (unknown) (no date) (unknown) (unknown) daily servings fruits/ve-1 (units unknown) (unknown) (unknown) (no date) (unknown) (unknown) do you feel sa fe at home: Yes (units unknown) (unknown) (unknown) (no date) (unknown) (unknown) during the pas t year weight has: remained stable (units unknown) (unknown) (unknown) (no date) (unknown) (unknown) education leve l: other (units unknown) (unknown) (unknown) (no date) (unknown) (unknown) fire extinguis her in home: Yes (units unknown) (unknown) (unknown) (no date) (unknown) (unknown) firearms in ho me: No (units unknown) (unknown) (unknown) (no date) (unknown) (unknown) have occurred. If there are any questions, please contact the Medical Records (units unknown) (unknown) (unknown) (no date) (unknown) (unknown) household memb ers: significant other and children (units unknown) (unknown) (unknown) (no date) (unknown) (unknown) housing: apartment ( units unknown) (unknown) (unknown) (no date) (unknown) (unknown) irritable. No negative side effects. (units unknown) (unknown) (unknown) (no date) (unknown) (unknown) labetalol 100 mg tablet 400 mg PO BID #360 tabs 08/04/22 [Rx Confirmed 10/28/22] (units unknown) (unknown) (unknown) (no date) (unknown) (unknown) latex Adverse Reaction (Mild, Verified 10/28/22 11:40) (units unknown) (unknown) (unknown) (no date) (unknown) (unknown) lives independently: Yes (units unknown) (unknown) (unknown) (no date) (unknown) (unknown) marital status : unmarried,living together (units unknown) (unknown) (unknown) (no date) (unknown) (unknown) may occur. Occasional wrong-word or 'sound-alike' substitutions may have (units unknown) (unknown) (unknown) (no date) (unknown) (unknown) nifedipine 30 mg tablet,extended release 24 hr 30 mg PO DAILY #30 tabs 08/04/22 (units unknown) (unknown) (unknown) (no date) (unknown) (unknown) number of chil dren: 2 (units unknown) (unknown) (unknown) (no date) (unknown) (unknown) occupational status: employed (units unknown) (unknown) (unknown) (no date) (unknown) (unknown) occurred due t o the inherent limitations of voice recognition software. Please (units unknown) (unknown) (unknown) (no date) (unknown) (unknown) pets and anima ls: Yes (1 cat (pt is not managing litter box)) (units unknown) (unknown) (unknown) (no date) (unknown) (unknown) prenat.vits,ca l,min -iron-folic 1 tab PO DAILY 01/27/22 [History Confirmed (units unknown) (unknown) (unknown) (no date) (unknown) (unknown) read the note carefully and recognize, using context, where these substitutions (units unknown) (unknown) (unknown) (no date) (unknown) (unknown) seatbelt use: always (units unknown) (unknown) (unknown) (no date) (unknown) (unknown) second hand exposure: No (units unknown) (unknown) (unknown) (no date) (unknown) (unknown) sertraline 25 mg tablet 25 mg PO DAILY #30 tabs 09/14/22 [Rx Confirmed 10/28/22] (units unknown) (unknown) (unknown) (no date) (unknown) (unknown) software. Alth ough every effort is made to edit content, right of way man errors (units unknown) (unknown) (unknown) (no date) (unknown) (unknown) special fly needs: No (units unknown) (unknown) (unknown) (no date) (unknown) (unknown) substance use type: marijuana (units unknown) (unknown) (unknown) (no date) (unknown) (unknown) [place] bedtime. (units unknown) (unknown) (unknown) (no date) (unknown) (unknown) water heater t emp set < 120 deg: Yes (Will check and adjust if needed) (units unknown) (unknown) (unknown) (no date) (unknown) (unknown) well-balanced diet: about half the time (units unknown) (unknown) (unknown) (no date) (unknown) (unknown) working smoke detector in home: Yes (units unknown) (unknown) Result panel 3 (unknown) (no date) (unknown) (unknown) (no value) (units unknown) (unknown) (unknown) (no date) (unknown) (unknown) [id number] (units unknown) (unknown) (unknown) (no date) (unknown) (unknown) 10/28/22 (units unknown) (unknown) (unknown) (no date) (unknown) (unknown) 10/28/22] (units unknown) (unknown) (unknown) (no date) (unknown) (unknown) 1. Little inte rest or pleasure in doing things: several days (units unknown) (unknown) (unknown) (no date) (unknown) (unknown) 11:41 10/28/22 (unit s unknown) (unknown) (unknown) (no date) (unknown) (unknown) 11:49 (units unknown) (unknown) (unknown) (no date) (unknown) (unknown) 2. Feeling tracy n, depressed, or hopeless: not at all (units unknown) (unknown) (unknown) (no date) (unknown) (unknown) 2RF (units unknown) (unknown) (unknown) (no date) (unknown) (unknown) 3. Trouble fal ling or staying asleep, or sleeping too much: more than half the (units unknown) (unknown) (unknown) (no date) (unknown) (unknown) 4. Feeling tir ed or having little energy: nearly every day (units unknown) (unknown) (unknown) (no date) (unknown) (unknown) 5. Poor appeti te or overeating: several days (units unknown) (unknown) (unknown) (no date) (unknown) (unknown) 6 wk f/u (units unknown) (unknown) (unknown) (no date) (unknown) (unknown) 6. Feeling bad about yourself - or that you are a failure or have let yourself (units unknown) (unknown) (unknown) (no date) (unknown) (unknown) 7. Trouble concentrating on things, such as reading the newspaper or watching (units unknown) (unknown) (unknown) (no date) (unknown) (unknown) 8. Moving or speaking so slowly that other people could have noticed? - Or the (units unknown) (unknown) (unknown) (no date) (unknown) (unknown) 9. Thoughts th at you would be better off or of hurting yourself in some (units unknown) (unknown) (unknown) (no date) (unknown) (unknown) Age/Sex: 32 / F Date of Service: (units unknown) (unknown) (unknown) (no date) (unknown) (unknown) Allergies (units unknown) (unknown) (unknown) (no date) (unknown) (unknown) [place] [facility] ly Medicine (units unknown) (unknown) (unknown) (no date) (unknown) (unknown) BHAVYA Cotter [id number] (units unknown) (unknown) (unknown) (no date) (unknown) (unknown) Assessment + Plan (u nits unknown) (unknown) (unknown) (no date) (unknown) (unknown) Attending Dr: Rabia Gooden MD (units unknown) (unknown) (unknown) (no date) (unknown) (unknown) BMI 35.6 (units unknown) (unknown) (unknown) (no date) (unknown) (unknown) BP 168/102 H 1 66/96 H (units unknown) (unknown) (unknown) (no date) (unknown) (unknown) BPs 160s/100-1 10s. No chest pain, SOB. Swelling stable. Seeing spots (units unknown) (unknown) (unknown) (no date) (unknown) (unknown) Becoming easil y annoyed or irritable: 2 = More than half the days (units unknown) (unknown) (unknown) (no date) (unknown) (unknown) Being so restl ess that it is hard to sit still: 1 = Several days (units unknown) (unknown) (unknown) (no date) (unknown) (unknown) Blister (units unknown) (unknown) (unknown) (no date) (unknown) (unknown) Blood Pressure Location Lt brachial Rt brachial (units unknown) (unknown) (unknown) (no date) (unknown) (unknown) Changed (units unknown) (unknown) (unknown) (no date) (unknown) (unknown) Chronic cough (-2000) (units unknown) (unknown) (unknown) (no date) (unknown) (unknown) Confirmed 10/28/22] (units unknown) (unknown) (unknown) (no date) (unknown) (unknown) : 0 Acct:[id number] (units unknown) (unknown) (unknown) (no date) (unknown) (unknown) Depression (units unknown) (unknown) (unknown) (no date) (unknown) (unknown) Depression/Bip olar (159/160/161/169/17 7) (units unknown) (unknown) (unknown) (no date) (unknown) (unknown) Dept at . (units unknown) (unknown) (unknown) (no date) (unknown) (unknown) Diet and Exercise (u nits unknown) (unknown) (unknown) (no date) (unknown) (unknown) Discontinued Reason: Provider's Order 400 mg (4 x 100 mg) PO BID 360 tabs (units unknown) (unknown) (unknown) (no date) (unknown) (unknown) Discontinued (units unknown) (unknown) (unknown) (no date) (unknown) (unknown) Documented By: Rabia Gooden MD 10/28/22 1140 (units unknown) (unknown) (unknown) (no date) (unknown) (unknown) Draft (units unknown) (unknown) (unknown) (no date) (unknown) (unknown) Family History (units unknown) (unknown) (unknown) (no date) (unknown) (unknown) Family Practic e Office Visit (units unknown) (unknown) (unknown) (no date) (unknown) (unknown) Feeling afraid as if something awful might happen: 2 = More than half the days (units unknown) (unknown) (unknown) (no date) (unknown) (unknown) Feeling nervou s, anxious, or on edge: 1 = Several days (units unknown) (unknown) (unknown) (no date) (unknown) (unknown) From sertralin e 25 mg PO DAILY 30 tabs 3RF (units unknown) (unknown) (unknown) (no date) (unknown) (unknown) KEY-7 (units unknown) (unknown) (unknown) (no date) (unknown) (unknown) Grandfather Hypertension (units unknown) (unknown) (unknown) (no date) (unknown) (unknown) Grandmother Ty pe 2 diabetes mellitus (units unknown) (unknown) (unknown) (no date) (unknown) (unknown) H/O bilateral salpingectomy (units unknown) (unknown) (unknown) (no date) (unknown) (unknown) Height 5 ft 2 in (un its unknown) (unknown) (unknown) (no date) (unknown) (unknown) Hypertension (units unknown) (unknown) (unknown) (no date) (unknown) (unknown) ITCHING (units unknown) (unknown) (unknown) (no date) (unknown) (unknown) If you checked off any problems, how difficult have these problems made it for (units unknown) (unknown) (unknown) (no date) (unknown) (unknown) Intake Note: (units unknown) (unknown) (unknown) (no date) (unknown) (unknown) Intake perform ed by: Gabriela Bagley (units unknown) (unknown) (unknown) (no date) (unknown) (unknown) Intake (units unknown) (unknown) (unknown) (no date) (unknown) (unknown) Intake- Isreal mcfarlane Staff (units unknown) (unknown) (unknown) (no date) (unknown) (unknown) Last Menstural Cycle + Details (units unknown) (unknown) (unknown) (no date) (unknown) (unknown) Loc: [facility] (units unknown) (unknown) (unknown) (no date) (unknown) (unknown) Medical Histor y (Updated 08/04/22 @ 13:01 by Rabia Gooden MD) (units unknown) (unknown) (unknown) (no date) (unknown) (unknown) Medications (units unknown) (unknown) (unknown) (no date) (unknown) (unknown) Medications: (units unknown) (unknown) (unknown) (no date) (unknown) (unknown) Mother Age: 51 Stroke (units unknown) (unknown) (unknown) (no date) (unknown) (unknown) New (units unknown) (unknown) (unknown) (no date) (unknown) (unknown) Not being able to stop or control worryin = Several days (units unknown) (unknown) (unknown) (no date) (unknown) (unknown) Note (units unknown) (unknown) (unknown) (no date) (unknown) (unknown) Note: (units unknown) (unknown) (unknown) (no date) (unknown) (unknown) Notes (units unknown) (unknown) (unknown) (no date) (unknown) (unknown) Other Menstrua l Period: Other (units unknown) (unknown) (unknown) (no date) (unknown) (unknown) Over the last 2 weeks, how often have you been bothered by any of the following (units unknown) (unknown) (unknown) (no date) (unknown) (unknown) Oxygen Deliver y Method room air (units unknown) (unknown) (unknown) (no date) (unknown) (unknown) PFSH (units unknown) (unknown) (unknown) (no date) (unknown) (unknown) PHQ-9 (units unknown) (unknown) (unknown) (no date) (unknown) (unknown) PUPP (pruritic urticarial papules and plaques of ) (units unknown) (unknown) (unknown) (no date) (unknown) (unknown) Patient: aG Hagan MR#: [id number] (units unknown) (unknown) (unknown) (no date) (unknown) (unknown) Plantar fascii tis (-2015) (units unknown) (unknown) (unknown) (no date) (unknown) (unknown) Position Sitti ng Sitting (units unknown) (unknown) (unknown) (no date) (unknown) (unknown) Psoriasis (units unknown) (unknown) (unknown) (no date) (unknown) (unknown) Pt has been snapping at everyone. Not crying frequently, very boyce and (units unknown) (unknown) (unknown) (no date) (unknown) (unknown) Pulse 62 (units unknown) (unknown) (unknown) (no date) (unknown) (unknown) Pulse Oximetry (%) 98 (units unknown) (unknown) (unknown) (no date) (unknown) (unknown) Pulse Source Pulmonary Artery (units unknown) (unknown) (unknown) (no date) (unknown) (unknown) Quality Reporting (u nits unknown) (unknown) (unknown) (no date) (unknown) (unknown) Questionnaires (unit s unknown) (unknown) (unknown) (no date) (unknown) (unknown) RASH AND ITCHING (un its unknown) (unknown) (unknown) (no date) (unknown) (unknown) RASH (units unknown) (unknown) (unknown) (no date) (unknown) (unknown) Rash (units unknown) (unknown) (unknown) (no date) (unknown) (unknown) Reason For Visit (un its unknown) (unknown) (unknown) (no date) (unknown) (unknown) Refilled (units unknown) (unknown) (unknown) (no date) (unknown) (unknown) Safety (units unknown) (unknown) (unknown) (no date) (unknown) (unknown) Signed By: (units unknown) (unknown) (unknown) (no date) (unknown) (unknown) Smoking Status : Never smoker (units unknown) (unknown) (unknown) (no date) (unknown) (unknown) Social History (unit s unknown) (unknown) (unknown) (no date) (unknown) (unknown) Source: [place] ped by Drs. Clarke Fowler, Russell Diggs (units unknown) (unknown) (unknown) (no date) (unknown) (unknown) Status post appendectomy (-1993) (units unknown) (unknown) (unknown) (no date) (unknown) (unknown) Status post delivery (01/06/11) (units unknown) (unknown) (unknown) (no date) (unknown) (unknown) Status post delivery (units unknown) (unknown) (unknown) (no date) (unknown) (unknown) Sulfa (Sulfona mide Antibiotics) Allergy (Mild, Verified 10/28/22 11:40) (units unknown) (unknown) (unknown) (no date) (unknown) (unknown) Surgical Histo ry (Updated 09/11/22 @ 09:01 by Rabia Gooden MD) (units unknown) (unknown) (unknown) (no date) (unknown) (unknown) This note may have been all or partially generated using voice recognition (units unknown) (unknown) (unknown) (no date) (unknown) (unknown) Tired all the time. (units unknown) (unknown) (unknown) (no date) (unknown) (unknown) To sertraline 50 mg PO DAILY 30 tabs 3RF (units unknown) (unknown) (unknown) (no date) (unknown) (unknown) Tobacco + Subs tance Use (units unknown) (unknown) (unknown) (no date) (unknown) (unknown) Tobacco Status (unit s unknown) (unknown) (unknown) (no date) (unknown) (unknown) Total KEY-7 sc ore (0-4 normal; 5-9 mild; 10-14 moderate; 15-21 severe): 9 (units unknown) (unknown) (unknown) (no date) (unknown) (unknown) Total score: 9 (unit s unknown) (unknown) (unknown) (no date) (unknown) (unknown) Trouble relaxi n = Several days (units unknown) (unknown) (unknown) (no date) (unknown) (unknown) Type(s) of exercise: none (units unknown) (unknown) (unknown) (no date) (unknown) (unknown) Visit Reasons: 6 WK FU (units unknown) (unknown) (unknown) (no date) (unknown) (unknown) Vitals (units unknown) (unknown) (unknown) (no date) (unknown) (unknown) Weight 195 lb (units unknown) (unknown) (unknown) (no date) (unknown) (unknown) Worrying too m uch about different things: 1 = Several days (units unknown) (unknown) (unknown) (no date) (unknown) (unknown) [Rx Confirmed 10/28/22] (units unknown) (unknown) (unknown) (no date) (unknown) (unknown) alcohol intake : former (units unknown) (unknown) (unknown) (no date) (unknown) (unknown) amoxicillin Al harshad (Mild, Verified 10/28/22 11:40) (units unknown) (unknown) (unknown) (no date) (unknown) (unknown) and colleagues , with an educational rafat from [employer] (units unknown) (unknown) (unknown) (no date) (unknown) (unknown) and your famil y down: several days (units unknown) (unknown) (unknown) (no date) (unknown) (unknown) azithromycin Allergy (Mild, Verified 10/28/22 11:40) (units unknown) (unknown) (unknown) (no date) (unknown) (unknown) caffeine: Yes (units unknown) (unknown) (unknown) (no date) (unknown) (unknown) carbon monox detector in home: Yes (units unknown) (unknown) (unknown) (no date) (unknown) (unknown) chlorhexidine Adverse Reaction (Intermediate, Verified 10/28/22 11:40) (units unknown) (unknown) (unknown) (no date) (unknown) (unknown) clobetasol 0.0 5 % topical ointment 1 applic topical BID #45 grams 07/01/22 [Rx (units unknown) (unknown) (unknown) (no date) (unknown) (unknown) current occupational exposures/hazards: No (units unknown) (unknown) (unknown) (no date) (unknown) (unknown) daily servings fruits/ve-1 (units unknown) (unknown) (unknown) (no date) (unknown) (unknown) days (units unknown) (unknown) (unknown) (no date) (unknown) (unknown) do you feel sa fe at home: Yes (units unknown) (unknown) (unknown) (no date) (unknown) (unknown) during the pas t year weight has: remained stable (units unknown) (unknown) (unknown) (no date) (unknown) (unknown) education leve l: other (units unknown) (unknown) (unknown) (no date) (unknown) (unknown) fire extinguis her in home: Yes (units unknown) (unknown) (unknown) (no date) (unknown) (unknown) firearms in ho me: No (units unknown) (unknown) (unknown) (no date) (unknown) (unknown) have occurred. If there are any questions, please contact the Medical Records (units unknown) (unknown) (unknown) (no date) (unknown) (unknown) household memb ers: significant other and children (units unknown) (unknown) (unknown) (no date) (unknown) (unknown) housing: apartment ( units unknown) (unknown) (unknown) (no date) (unknown) (unknown) irritable. No negative side effects. (units unknown) (unknown) (unknown) (no date) (unknown) (unknown) labetalol (units unknown) (unknown) (unknown) (no date) (unknown) (unknown) latex Adverse Reaction (Mild, Verified 10/28/22 11:40) (units unknown) (unknown) (unknown) (no date) (unknown) (unknown) lisinopril 40 mg PO DAILY 30 tabs 0RF (units unknown) (unknown) (unknown) (no date) (unknown) (unknown) lisinopril 40 mg tablet 40 mg PO DAILY #30 tabs 10/28/22 [Rx Confirmed 10/28/22] (units unknown) (unknown) (unknown) (no date) (unknown) (unknown) lives independently: Yes (units unknown) (unknown) (unknown) (no date) (unknown) (unknown) marital status : unmarried,living together (units unknown) (unknown) (unknown) (no date) (unknown) (unknown) may occur. Occasional wrong-word or 'sound-alike' substitutions may have (units unknown) (unknown) (unknown) (no date) (unknown) (unknown) more than usua l: several days (units unknown) (unknown) (unknown) (no date) (unknown) (unknown) nifedipine 30 mg tablet,extended release 24 hr 30 mg PO DAILY #30 tabs 10/28/22 (units unknown) (unknown) (unknown) (no date) (unknown) (unknown) nifedipine ER 30 mg PO DAILY 30 tabs 0RF (units unknown) (unknown) (unknown) (no date) (unknown) (unknown) number of chil dren: 2 (units unknown) (unknown) (unknown) (no date) (unknown) (unknown) occupational status: employed (units unknown) (unknown) (unknown) (no date) (unknown) (unknown) occurred due t o the inherent limitations of voice recognition software. Please (units unknown) (unknown) (unknown) (no date) (unknown) (unknown) opposite - feng ng so fidgety or restless that you have been moving around a lot (units unknown) (unknown) (unknown) (no date) (unknown) (unknown) people?: not difficult at all (units unknown) (unknown) (unknown) (no date) (unknown) (unknown) pets and anima ls: Yes (1 cat (pt is not managing litter box)) (units unknown) (unknown) (unknown) (no date) (unknown) (unknown) prenat.vits,ca l,min -iron-folic 1 tab PO DAILY 01/27/22 [History Confirmed (units unknown) (unknown) (unknown) (no date) (unknown) (unknown) problems? (units unknown) (unknown) (unknown) (no date) (unknown) (unknown) read the note carefully and recognize, using context, where these substitutions (units unknown) (unknown) (unknown) (no date) (unknown) (unknown) seatbelt use: always (units unknown) (unknown) (unknown) (no date) (unknown) (unknown) second hand exposure: No (units unknown) (unknown) (unknown) (no date) (unknown) (unknown) sertraline 50 mg tablet 50 mg PO DAILY #30 tabs 10/28/22 [Rx Confirmed 10/28/22] (units unknown) (unknown) (unknown) (no date) (unknown) (unknown) software. Alth ough every effort is made to edit content, right of way man errors (units unknown) (unknown) (unknown) (no date) (unknown) (unknown) special fly needs: No (units unknown) (unknown) (unknown) (no date) (unknown) (unknown) substance use type: marijuana (units unknown) (unknown) (unknown) (no date) (unknown) (unknown) television: no t at all (units unknown) (unknown) (unknown) (no date) (unknown) (unknown) [place] bed[place]. (units unknown) (unknown) (unknown) (no date) (unknown) (unknown) water heater t emp set < 120 deg: Yes (Will check and adjust if needed) (units unknown) (unknown) (unknown) (no date) (unknown) (unknown) way: not at all (uni ts unknown) (unknown) (unknown) (no date) (unknown) (unknown) well-balanced diet: about half the time (units unknown) (unknown) (unknown) (no date) (unknown) (unknown) working smoke detector in home: Yes (units unknown) (unknown) (unknown) (no date) (unknown) (unknown) you to do your work, take care of things at home, or get along with other (units unknown) (unknown) Result panel 4 (unknown) (no date) (unknown) (unknown) (no value) (units unknown) (unknown) (unknown) (no date) (unknown) (unknown) [id number] (units unknown) (unknown) (unknown) (no date) (unknown) (unknown) 10/28/22 (units unknown) (unknown) (unknown) (no date) (unknown) (unknown) 10/28/22] (units unknown) (unknown) (unknown) (no date) (unknown) (unknown) 1. Little inte rest or pleasure in doing things: several days (units unknown) (unknown) (unknown) (no date) (unknown) (unknown) 11:41 10/28/22 (unit s unknown) (unknown) (unknown) (no date) (unknown) (unknown) 11:49 (units unknown) (unknown) (unknown) (no date) (unknown) (unknown) 2. Feeling tracy n, depressed, or hopeless: not at all (units unknown) (unknown) (unknown) (no date) (unknown) (unknown) 2RF (units unknown) (unknown) (unknown) (no date) (unknown) (unknown) 3. Trouble fal ling or staying asleep, or sleeping too much: more than half the (units unknown) (unknown) (unknown) (no date) (unknown) (unknown) 4. Feeling tir ed or having little energy: nearly every day (units unknown) (unknown) (unknown) (no date) (unknown) (unknown) 5. Poor appeti te or overeating: several days (units unknown) (unknown) (unknown) (no date) (unknown) (unknown) 6 wk f/u (units unknown) (unknown) (unknown) (no date) (unknown) (unknown) 6. Feeling bad about yourself - or that you are a failure or have let yourself (units unknown) (unknown) (unknown) (no date) (unknown) (unknown) 7. Trouble concentrating on things, such as reading the newspaper or watching (units unknown) (unknown) (unknown) (no date) (unknown) (unknown) 8. Moving or speaking so slowly that other people could have noticed? - Or the (units unknown) (unknown) (unknown) (no date) (unknown) (unknown) 9. Thoughts th at you would be better off or of hurting yourself in some (units unknown) (unknown) (unknown) (no date) (unknown) (unknown) Age/Sex: 32 / F Date of Service: (units unknown) (unknown) (unknown) (no date) (unknown) (unknown) Allergies (units unknown) (unknown) (unknown) (no date) (unknown) (unknown) [place] [facility] ly Medicine (units unknown) (unknown) (unknown) (no date) (unknown) (unknown) [place] [id number] (units unknown) (unknown) (unknown) (no date) (unknown) (unknown) Assessment + Plan (u nits unknown) (unknown) (unknown) (no date) (unknown) (unknown) Attending Dr: Rabia Gooden MD (units unknown) (unknown) (unknown) (no date) (unknown) (unknown) BMI 35.6 (units unknown) (unknown) (unknown) (no date) (unknown) (unknown) BP 168/102 H 1 66/96 H (units unknown) (unknown) (unknown) (no date) (unknown) (unknown) BPs 160s/100-1 10s. No chest pain, SOB. Swelling stable. Seeing spots (units unknown) (unknown) (unknown) (no date) (unknown) (unknown) Becoming easil y annoyed or irritable: 2 = More than half the days (units unknown) (unknown) (unknown) (no date) (unknown) (unknown) Being so restl ess that it is hard to sit still: 1 = Several days (units unknown) (unknown) (unknown) (no date) (unknown) (unknown) Blister (units unknown) (unknown) (unknown) (no date) (unknown) (unknown) Blood Pressure Location Lt brachial Rt brachial (units unknown) (unknown) (unknown) (no date) (unknown) (unknown) Changed (units unknown) (unknown) (unknown) (no date) (unknown) (unknown) Chronic cough (-2000) (units unknown) (unknown) (unknown) (no date) (unknown) (unknown) Confirmed 10/28/22] (units unknown) (unknown) (unknown) (no date) (unknown) (unknown) : 0 Acct:[id number] (units unknown) (unknown) (unknown) (no date) (unknown) (unknown) Depression (units unknown) (unknown) (unknown) (no date) (unknown) (unknown) Depression/Bip olar (159/160/161/169/17 7) (units unknown) (unknown) (unknown) (no date) (unknown) (unknown) Dept at . (units unknown) (unknown) (unknown) (no date) (unknown) (unknown) Diet and Exercise (u nits unknown) (unknown) (unknown) (no date) (unknown) (unknown) Discontinued Reason: Provider's Order 400 mg (4 x 100 mg) PO BID 360 tabs (units unknown) (unknown) (unknown) (no date) (unknown) (unknown) Discontinued (units unknown) (unknown) (unknown) (no date) (unknown) (unknown) Documented By: Rabia Gooden MD 10/28/22 1140 (units unknown) (unknown) (unknown) (no date) (unknown) (unknown) Draft (units unknown) (unknown) (unknown) (no date) (unknown) (unknown) Family History (units unknown) (unknown) (unknown) (no date) (unknown) (unknown) Family Practic e Office Visit (units unknown) (unknown) (unknown) (no date) (unknown) (unknown) Feeling afraid as if something awful might happen: 2 = More than half the days (units unknown) (unknown) (unknown) (no date) (unknown) (unknown) Feeling nervou s, anxious, or on edge: 1 = Several days (units unknown) (unknown) (unknown) (no date) (unknown) (unknown) From sertralin e 25 mg PO DAILY 30 tabs 3RF (units unknown) (unknown) (unknown) (no date) (unknown) (unknown) KEY-7 (units unknown) (unknown) (unknown) (no date) (unknown) (unknown) Grandfather Hypertension (units unknown) (unknown) (unknown) (no date) (unknown) (unknown) Grandmother Ty pe 2 diabetes mellitus (units unknown) (unknown) (unknown) (no date) (unknown) (unknown) H/O bilateral salpingectomy (units unknown) (unknown) (unknown) (no date) (unknown) (unknown) Height 5 ft 2 in (un its unknown) (unknown) (unknown) (no date) (unknown) (unknown) Hypertension (units unknown) (unknown) (unknown) (no date) (unknown) (unknown) ITCHING (units unknown) (unknown) (unknown) (no date) (unknown) (unknown) If you checked off any problems, how difficult have these problems made it for (units unknown) (unknown) (unknown) (no date) (unknown) (unknown) Intake Note: (units unknown) (unknown) (unknown) (no date) (unknown) (unknown) Intake perform ed by: Gabriela Bagley (units unknown) (unknown) (unknown) (no date) (unknown) (unknown) Intake (units unknown) (unknown) (unknown) (no date) (unknown) (unknown) Intake- Isreal mcfarlane Staff (units unknown) (unknown) (unknown) (no date) (unknown) (unknown) Last Menstural Cycle + Details (units unknown) (unknown) (unknown) (no date) (unknown) (unknown) Loc: [facility] (units unknown) (unknown) (unknown) (no date) (unknown) (unknown) Medical Histor y (Updated 08/04/22 @ 13:01 by Rabia Gooden MD) (units unknown) (unknown) (unknown) (no date) (unknown) (unknown) Medications (units unknown) (unknown) (unknown) (no date) (unknown) (unknown) Medications: (units unknown) (unknown) (unknown) (no date) (unknown) (unknown) Mother Age: 51 Stroke (units unknown) (unknown) (unknown) (no date) (unknown) (unknown) New (units unknown) (unknown) (unknown) (no date) (unknown) (unknown) Not being able to stop or control worryin = Several days (units unknown) (unknown) (unknown) (no date) (unknown) (unknown) Note (units unknown) (unknown) (unknown) (no date) (unknown) (unknown) Note: (units unknown) (unknown) (unknown) (no date) (unknown) (unknown) Notes (units unknown) (unknown) (unknown) (no date) (unknown) (unknown) Other Menstrua l Period: Other (units unknown) (unknown) (unknown) (no date) (unknown) (unknown) Over the last 2 weeks, how often have you been bothered by any of the following (units unknown) (unknown) (unknown) (no date) (unknown) (unknown) Oxygen Deliver y Method room air (units unknown) (unknown) (unknown) (no date) (unknown) (unknown) PFSH (units unknown) (unknown) (unknown) (no date) (unknown) (unknown) PHQ-9 (units unknown) (unknown) (unknown) (no date) (unknown) (unknown) PUPP (pruritic urticarial papules and plaques of ) (units unknown) (unknown) (unknown) (no date) (unknown) (unknown) Patient: Ga Hagan MR#: [id number] (units unknown) (unknown) (unknown) (no date) (unknown) (unknown) Plantar fascii tis (-2015) (units unknown) (unknown) (unknown) (no date) (unknown) (unknown) Position Sitti ng Sitting (units unknown) (unknown) (unknown) (no date) (unknown) (unknown) Psoriasis (units unknown) (unknown) (unknown) (no date) (unknown) (unknown) Pt has been snapping at everyone. Not crying frequently, very boyce and (units unknown) (unknown) (unknown) (no date) (unknown) (unknown) Pulse 62 (units unknown) (unknown) (unknown) (no date) (unknown) (unknown) Pulse Oximetry (%) 98 (units unknown) (unknown) (unknown) (no date) (unknown) (unknown) Pulse Source Pulmonary Artery (units unknown) (unknown) (unknown) (no date) (unknown) (unknown) Quality Reporting (u nits unknown) (unknown) (unknown) (no date) (unknown) (unknown) Questionnaires (unit s unknown) (unknown) (unknown) (no date) (unknown) (unknown) RASH AND ITCHING (un its unknown) (unknown) (unknown) (no date) (unknown) (unknown) RASH (units unknown) (unknown) (unknown) (no date) (unknown) (unknown) Rash (units unknown) (unknown) (unknown) (no date) (unknown) (unknown) Reason For Visit (un its unknown) (unknown) (unknown) (no date) (unknown) (unknown) Refilled (units unknown) (unknown) (unknown) (no date) (unknown) (unknown) Safety (units unknown) (unknown) (unknown) (no date) (unknown) (unknown) Signed By: (units unknown) (unknown) (unknown) (no date) (unknown) (unknown) Smoking Status : Never smoker (units unknown) (unknown) (unknown) (no date) (unknown) (unknown) Social History (unit s unknown) (unknown) (unknown) (no date) (unknown) (unknown) Source: Develo ped by Drs. Clarke Fowler, Mavis Brown, Russell Richardson (units unknown) (unknown) (unknown) (no date) (unknown) (unknown) Status post appendectomy (-1993) (units unknown) (unknown) (unknown) (no date) (unknown) (unknown) Status post delivery (01/06/11) (units unknown) (unknown) (unknown) (no date) (unknown) (unknown) Status post delivery (units unknown) (unknown) (unknown) (no date) (unknown) (unknown) Sulfa (Sulfona mide Antibiotics) Allergy (Mild, Verified 10/28/22 11:40) (units unknown) (unknown) (unknown) (no date) (unknown) (unknown) Surgical Histo ry (Updated 09/11/22 @ 09:01 by Rabia Gooden MD) (units unknown) (unknown) (unknown) (no date) (unknown) (unknown) This note may have been all or partially generated using voice recognition (units unknown) (unknown) (unknown) (no date) (unknown) (unknown) Tired all the time. (units unknown) (unknown) (unknown) (no date) (unknown) (unknown) To sertraline 50 mg PO DAILY 30 tabs 3RF (units unknown) (unknown) (unknown) (no date) (unknown) (unknown) Tobacco + Subs tance Use (units unknown) (unknown) (unknown) (no date) (unknown) (unknown) Tobacco Status (unit s unknown) (unknown) (unknown) (no date) (unknown) (unknown) Total KEY-7 sc ore (0-4 normal; 5-9 mild; 10-14 moderate; 15-21 severe): 9 (units unknown) (unknown) (unknown) (no date) (unknown) (unknown) Total score: 9 (unit s unknown) (unknown) (unknown) (no date) (unknown) (unknown) Trouble relaxi n = Several days (units unknown) (unknown) (unknown) (no date) (unknown) (unknown) Type(s) of exercise: none (units unknown) (unknown) (unknown) (no date) (unknown) (unknown) Visit Reasons: 6 WK FU (units unknown) (unknown) (unknown) (no date) (unknown) (unknown) Vitals (units unknown) (unknown) (unknown) (no date) (unknown) (unknown) Weight 195 lb (units unknown) (unknown) (unknown) (no date) (unknown) (unknown) Worrying too m uch about different things: 1 = Several days (units unknown) (unknown) (unknown) (no date) (unknown) (unknown) [Rx Confirmed 10/28/22] (units unknown) (unknown) (unknown) (no date) (unknown) (unknown) alcohol intake : former (units unknown) (unknown) (unknown) (no date) (unknown) (unknown) edmond Briggs (Mild, Verified 10/28/22 11:40) (units unknown) (unknown) (unknown) (no date) (unknown) (unknown) and colleagues , with an educational rafat from [employer] (units unknown) (unknown) (unknown) (no date) (unknown) (unknown) and your famil y down: several days (units unknown) (unknown) (unknown) (no date) (unknown) (unknown) azithromycin Allergy (Mild, Verified 10/28/22 11:40) (units unknown) (unknown) (unknown) (no date) (unknown) (unknown) caffeine: Yes (units unknown) (unknown) (unknown) (no date) (unknown) (unknown) carbon monox detector in home: Yes (units unknown) (unknown) (unknown) (no date) (unknown) (unknown) chlorhexidine Adverse Reaction (Intermediate, Verified 10/28/22 11:40) (units unknown) (unknown) (unknown) (no date) (unknown) (unknown) clobetasol 0.0 5 % topical ointment 1 applic topical BID #45 grams 07/01/22 [Rx (units unknown) (unknown) (unknown) (no date) (unknown) (unknown) current occupational exposures/hazards: No (units unknown) (unknown) (unknown) (no date) (unknown) (unknown) daily servings fruits/ve-1 (units unknown) (unknown) (unknown) (no date) (unknown) (unknown) days (units unknown) (unknown) (unknown) (no date) (unknown) (unknown) do you feel sa fe at home: Yes (units unknown) (unknown) (unknown) (no date) (unknown) (unknown) during the pas t year weight has: remained stable (units unknown) (unknown) (unknown) (no date) (unknown) (unknown) education leve l: other (units unknown) (unknown) (unknown) (no date) (unknown) (unknown) fire extinguis her in home: Yes (units unknown) (unknown) (unknown) (no date) (unknown) (unknown) firearms in ho me: No (units unknown) (unknown) (unknown) (no date) (unknown) (unknown) have occurred. If there are any questions, please contact the Medical Records (units unknown) (unknown) (unknown) (no date) (unknown) (unknown) household memb ers: significant other and children (units unknown) (unknown) (unknown) (no date) (unknown) (unknown) housing: apartment ( units unknown) (unknown) (unknown) (no date) (unknown) (unknown) irritable. No negative side effects. (units unknown) (unknown) (unknown) (no date) (unknown) (unknown) labetalol (units unknown) (unknown) (unknown) (no date) (unknown) (unknown) latex Adverse Reaction (Mild, Verified 10/28/22 11:40) (units unknown) (unknown) (unknown) (no date) (unknown) (unknown) lisinopril 40 mg PO DAILY 30 tabs 0RF (units unknown) (unknown) (unknown) (no date) (unknown) (unknown) lisinopril 40 mg tablet 40 mg PO DAILY #30 tabs 10/28/22 [Rx Confirmed 10/28/22] (units unknown) (unknown) (unknown) (no date) (unknown) (unknown) lives independently: Yes (units unknown) (unknown) (unknown) (no date) (unknown) (unknown) marital status : unmarried,living together (units unknown) (unknown) (unknown) (no date) (unknown) (unknown) may occur. Occasional wrong-word or 'sound-alike' substitutions may have (units unknown) (unknown) (unknown) (no date) (unknown) (unknown) more than usua l: several days (units unknown) (unknown) (unknown) (no date) (unknown) (unknown) nifedipine 30 mg tablet,extended release 24 hr 30 mg PO DAILY #30 tabs 10/28/22 (units unknown) (unknown) (unknown) (no date) (unknown) (unknown) nifedipine ER 30 mg PO DAILY 30 tabs 0RF (units unknown) (unknown) (unknown) (no date) (unknown) (unknown) number of chil dren: 2 (units unknown) (unknown) (unknown) (no date) (unknown) (unknown) occupational status: employed (units unknown) (unknown) (unknown) (no date) (unknown) (unknown) occurred due t o the inherent limitations of voice recognition software. Please (units unknown) (unknown) (unknown) (no date) (unknown) (unknown) opposite - feng ng so fidgety or restless that you have been moving around a lot (units unknown) (unknown) (unknown) (no date) (unknown) (unknown) people?: not difficult at all (units unknown) (unknown) (unknown) (no date) (unknown) (unknown) pets and anima ls: Yes (1 cat (pt is not managing litter box)) (units unknown) (unknown) (unknown) (no date) (unknown) (unknown) prenat.vits,ca l,min -iron-folic 1 tab PO DAILY 01/27/22 [History Confirmed (units unknown) (unknown) (unknown) (no date) (unknown) (unknown) problems? (units unknown) (unknown) (unknown) (no date) (unknown) (unknown) read the note carefully and recognize, using context, where these substitutions (units unknown) (unknown) (unknown) (no date) (unknown) (unknown) seatbelt use: always (units unknown) (unknown) (unknown) (no date) (unknown) (unknown) second hand exposure: No (units unknown) (unknown) (unknown) (no date) (unknown) (unknown) sertraline 50 mg tablet 50 mg PO DAILY #30 tabs 10/28/22 [Rx Confirmed 10/28/22] (units unknown) (unknown) (unknown) (no date) (unknown) (unknown) software. Alth ough every effort is made to edit content, right of way man errors (units unknown) (unknown) (unknown) (no date) (unknown) (unknown) special fly needs: No (units unknown) (unknown) (unknown) (no date) (unknown) (unknown) substance use type: marijuana (units unknown) (unknown) (unknown) (no date) (unknown) (unknown) television: no t at all (units unknown) (unknown) (unknown) (no date) (unknown) (unknown) [place] bed[place]. (units unknown) (unknown) (unknown) (no date) (unknown) (unknown) water heater t emp set < 120 deg: Yes (Will check and adjust if needed) (units unknown) (unknown) (unknown) (no date) (unknown) (unknown) way: not at all (uni ts unknown) (unknown) (unknown) (no date) (unknown) (unknown) well-balanced diet: about half the time (units unknown) (unknown) (unknown) (no date) (unknown) (unknown) working smoke detector in home: Yes (units unknown) (unknown) (unknown) (no date) (unknown) (unknown) you to do your work, take care of things at home, or get along with other (units unknown) (unknown) Result panel 5 (unknown) (no date) (unknown) (unknown) (no value) (units unknown) (unknown) (unknown) (no date) (unknown) (unknown) [id number] (units unknown) (unknown) (unknown) (no date) (unknown) (unknown) 10/28/22 (units unknown) (unknown) (unknown) (no date) (unknown) (unknown) 10/28/22] (units unknown) (unknown) (unknown) (no date) (unknown) (unknown) 1. Little inte rest or pleasure in doing things: several days (units unknown) (unknown) (unknown) (no date) (unknown) (unknown) 11:41 10/28/22 (unit s unknown) (unknown) (unknown) (no date) (unknown) (unknown) 11:49 (units unknown) (unknown) (unknown) (no date) (unknown) (unknown) 2. Feeling tracy n, depressed, or hopeless: not at all (units unknown) (unknown) (unknown) (no date) (unknown) (unknown) 2RF (units unknown) (unknown) (unknown) (no date) (unknown) (unknown) 3. Trouble fal ling or staying asleep, or sleeping too much: more than half the (units unknown) (unknown) (unknown) (no date) (unknown) (unknown) 4. Feeling tir ed or having little energy: nearly every day (units unknown) (unknown) (unknown) (no date) (unknown) (unknown) 5. Poor appeti te or overeating: several days (units unknown) (unknown) (unknown) (no date) (unknown) (unknown) 6 wk f/u (units unknown) (unknown) (unknown) (no date) (unknown) (unknown) 6. Feeling bad about yourself - or that you are a failure or have let yourself (units unknown) (unknown) (unknown) (no date) (unknown) (unknown) 7. Trouble concentrating on things, such as reading the newspaper or watching (units unknown) (unknown) (unknown) (no date) (unknown) (unknown) 8. Moving or speaking so slowly that other people could have noticed? - Or the (units unknown) (unknown) (unknown) (no date) (unknown) (unknown) 9. Thoughts th at you would be better off or of hurting yourself in some (units unknown) (unknown) (unknown) (no date) (unknown) (unknown) Age/Sex: 32 / F Date of Service: (units unknown) (unknown) (unknown) (no date) (unknown) (unknown) Allergies (units unknown) (unknown) (unknown) (no date) (unknown) (unknown) [place] [facility] (units unknown) (unknown) (unknown) (no date) (unknown) (unknown) [place] [address] (units unknown) (unknown) (unknown) (no date) (unknown) (unknown) Assessment + Plan (u nits unknown) (unknown) (unknown) (no date) (unknown) (unknown) Attending Dr: Rabia Gooden MD (units unknown) (unknown) (unknown) (no date) (unknown) (unknown) BMI 35.6 (units unknown) (unknown) (unknown) (no date) (unknown) (unknown) BP 168/102 H 1 66/96 H (units unknown) (unknown) (unknown) (no date) (unknown) (unknown) BPs 160s/100-1 10s. No chest pain, SOB. Swelling stable. Seeing spots (units unknown) (unknown) (unknown) (no date) (unknown) (unknown) Becoming easil y annoyed or irritable: 2 = More than half the days (units unknown) (unknown) (unknown) (no date) (unknown) (unknown) Being so restl ess that it is hard to sit still: 1 = Several days (units unknown) (unknown) (unknown) (no date) (unknown) (unknown) Blister (units unknown) (unknown) (unknown) (no date) (unknown) (unknown) Blood Pressure Location Lt brachial Rt brachial (units unknown) (unknown) (unknown) (no date) (unknown) (unknown) Changed (units unknown) (unknown) (unknown) (no date) (unknown) (unknown) Chronic cough (-2000) (units unknown) (unknown) (unknown) (no date) (unknown) (unknown) Confirmed 03/08/23] (units unknown) (unknown) (unknown) (no date) (unknown) (unknown) : 0 Acct:[id number] (units unknown) (unknown) (unknown) (no date) (unknown) (unknown) Depression (units unknown) (unknown) (unknown) (no date) (unknown) (unknown) Depression/Bip olar (159/160/161/169/17 7) (units unknown) (unknown) (unknown) (no date) (unknown) (unknown) Dept at . (units unknown) (unknown) (unknown) (no date) (unknown) (unknown) Diet and Exercise (u nits unknown) (unknown) (unknown) (no date) (unknown) (unknown) Discontinued Reason: Provider's Order 400 mg (4 x 100 mg) PO BID 360 tabs (units unknown) (unknown) (unknown) (no date) (unknown) (unknown) Discontinued (units unknown) (unknown) (unknown) (no date) (unknown) (unknown) Documented By: Rabia Gooden MD 10/28/22 1140 (units unknown) (unknown) (unknown) (no date) (unknown) (unknown) Draft (units unknown) (unknown) (unknown) (no date) (unknown) (unknown) Family History (units unknown) (unknown) (unknown) (no date) (unknown) (unknown) Family Practic e Office Visit (units unknown) (unknown) (unknown) (no date) (unknown) (unknown) Feeling afraid as if something awful might happen: 2 = More than half the days (units unknown) (unknown) (unknown) (no date) (unknown) (unknown) Feeling nervou s, anxious, or on edge: 1 = Several days (units unknown) (unknown) (unknown) (no date) (unknown) (unknown) From sertralin e 25 mg PO DAILY 30 tabs 3RF (units unknown) (unknown) (unknown) (no date) (unknown) (unknown) KEY-7 (units unknown) (unknown) (unknown) (no date) (unknown) (unknown) Grandfather Hypertension (units unknown) (unknown) (unknown) (no date) (unknown) (unknown) Grandmother Ty pe 2 diabetes mellitus (units unknown) (unknown) (unknown) (no date) (unknown) (unknown) H/O bilateral salpingectomy (units unknown) (unknown) (unknown) (no date) (unknown) (unknown) Height 5 ft 2 in (un its unknown) (unknown) (unknown) (no date) (unknown) (unknown) Hypertension (units unknown) (unknown) (unknown) (no date) (unknown) (unknown) ITCHING (units unknown) (unknown) (unknown) (no date) (unknown) (unknown) If you checked off any problems, how difficult have these problems made it for (units unknown) (unknown) (unknown) (no date) (unknown) (unknown) Intake Note: (units unknown) (unknown) (unknown) (no date) (unknown) (unknown) Intake perform ed by: Gabriela Bagley (units unknown) (unknown) (unknown) (no date) (unknown) (unknown) Intake (units unknown) (unknown) (unknown) (no date) (unknown) (unknown) Intake- Isreal al Staff (units unknown) (unknown) (unknown) (no date) (unknown) (unknown) Last Menstural Cycle + Details (units unknown) (unknown) (unknown) (no date) (unknown) (unknown) Loc: [facility] (units unknown) (unknown) (unknown) (no date) (unknown) (unknown) Medical Histor y (Updated 08/04/22 @ 13:01 by Rabia Gooden MD) (units unknown) (unknown) (unknown) (no date) (unknown) (unknown) Medications (units unknown) (unknown) (unknown) (no date) (unknown) (unknown) Medications: (units unknown) (unknown) (unknown) (no date) (unknown) (unknown) Mother Age: 51 Stroke (units unknown) (unknown) (unknown) (no date) (unknown) (unknown) New (units unknown) (unknown) (unknown) (no date) (unknown) (unknown) Not being able to stop or control worryin = Several days (units unknown) (unknown) (unknown) (no date) (unknown) (unknown) Note (units unknown) (unknown) (unknown) (no date) (unknown) (unknown) Note: (units unknown) (unknown) (unknown) (no date) (unknown) (unknown) Notes (units unknown) (unknown) (unknown) (no date) (unknown) (unknown) Other Menstrua l Period: Other (units unknown) (unknown) (unknown) (no date) (unknown) (unknown) Over the last 2 weeks, how often have you been bothered by any of the following (units unknown) (unknown) (unknown) (no date) (unknown) (unknown) Oxygen Deliver y Method room air (units unknown) (unknown) (unknown) (no date) (unknown) (unknown) PFSH (units unknown) (unknown) (unknown) (no date) (unknown) (unknown) PHQ-9 (units unknown) (unknown) (unknown) (no date) (unknown) (unknown) PUPP (pruritic urticarial papules and plaques of ) (units unknown) (unknown) (unknown) (no date) (unknown) (unknown) Patient: Ga Hagan MR#: [id number] (units unknown) (unknown) (unknown) (no date) (unknown) (unknown) Plantar fascii tis (-2015) (units unknown) (unknown) (unknown) (no date) (unknown) (unknown) Position Sitti ng Sitting (units unknown) (unknown) (unknown) (no date) (unknown) (unknown) Psoriasis (units unknown) (unknown) (unknown) (no date) (unknown) (unknown) Pt has been snapping at everyone. Not crying frequently, very boyce and (units unknown) (unknown) (unknown) (no date) (unknown) (unknown) Pulse 62 (units unknown) (unknown) (unknown) (no date) (unknown) (unknown) Pulse Oximetry (%) 98 (units unknown) (unknown) (unknown) (no date) (unknown) (unknown) Pulse Source Pulmonary Artery (units unknown) (unknown) (unknown) (no date) (unknown) (unknown) Quality Reporting (u nits unknown) (unknown) (unknown) (no date) (unknown) (unknown) Questionnaires (unit s unknown) (unknown) (unknown) (no date) (unknown) (unknown) RASH AND ITCHING (un its unknown) (unknown) (unknown) (no date) (unknown) (unknown) RASH (units unknown) (unknown) (unknown) (no date) (unknown) (unknown) Rash (units unknown) (unknown) (unknown) (no date) (unknown) (unknown) Reason For Visit (un its unknown) (unknown) (unknown) (no date) (unknown) (unknown) Refilled (units unknown) (unknown) (unknown) (no date) (unknown) (unknown) Safety (units unknown) (unknown) (unknown) (no date) (unknown) (unknown) Signed By: (units unknown) (unknown) (unknown) (no date) (unknown) (unknown) Smoking Status : Never smoker (units unknown) (unknown) (unknown) (no date) (unknown) (unknown) Social History (unit s unknown) (unknown) (unknown) (no date) (unknown) (unknown) Source: [facility] ped by Drs. Clarke Fowler, Mavis Brown, Russell Richardson (units unknown) (unknown) (unknown) (no date) (unknown) (unknown) Status post appendectomy (-1993) (units unknown) (unknown) (unknown) (no date) (unknown) (unknown) Status post delivery (01/06/11) (units unknown) (unknown) (unknown) (no date) (unknown) (unknown) Status post delivery (units unknown) (unknown) (unknown) (no date) (unknown) (unknown) Sulfa (Sulfona mide Antibiotics) Allergy (Mild, Verified 10/28/22 11:40) (units unknown) (unknown) (unknown) (no date) (unknown) (unknown) Surgical Histo ry (Updated 09/11/22 @ 09:01 by Rabia Gooden MD) (units unknown) (unknown) (unknown) (no date) (unknown) (unknown) This note may have been all or partially generated using voice recognition (units unknown) (unknown) (unknown) (no date) (unknown) (unknown) Tired all the time. (units unknown) (unknown) (unknown) (no date) (unknown) (unknown) To sertraline 50 mg PO DAILY 30 tabs 3RF (units unknown) (unknown) (unknown) (no date) (unknown) (unknown) Tobacco + Subs tance Use (units unknown) (unknown) (unknown) (no date) (unknown) (unknown) Tobacco Status (unit s unknown) (unknown) (unknown) (no date) (unknown) (unknown) Total KEY-7 sc ore (0-4 normal; 5-9 mild; 10-14 moderate; 15-21 severe): 9 (units unknown) (unknown) (unknown) (no date) (unknown) (unknown) Total score: 9 (unit s unknown) (unknown) (unknown) (no date) (unknown) (unknown) Trouble relaxi n = Several days (units unknown) (unknown) (unknown) (no date) (unknown) (unknown) Type(s) of exercise: none (units unknown) (unknown) (unknown) (no date) (unknown) (unknown) Visit Reasons: 6 WK FU (units unknown) (unknown) (unknown) (no date) (unknown) (unknown) Vitals (units unknown) (unknown) (unknown) (no date) (unknown) (unknown) Weight 195 lb (units unknown) (unknown) (unknown) (no date) (unknown) (unknown) Worrying too m uch about different things: 1 = Several days (units unknown) (unknown) (unknown) (no date) (unknown) (unknown) [Rx Confirmed 10/28/22] (units unknown) (unknown) (unknown) (no date) (unknown) (unknown) alcohol intake : former (units unknown) (unknown) (unknown) (no date) (unknown) (unknown) edmond Briggs (Mild, Verified 10/28/22 11:40) (units unknown) (unknown) (unknown) (no date) (unknown) (unknown) and colleagues , with an educational rafat from [employer] (units unknown) (unknown) (unknown) (no date) (unknown) (unknown) and your famil y down: several days (units unknown) (unknown) (unknown) (no date) (unknown) (unknown) azithromycin Allergy (Mild, Verified 10/28/22 11:40) (units unknown) (unknown) (unknown) (no date) (unknown) (unknown) caffeine: Yes (units unknown) (unknown) (unknown) (no date) (unknown) (unknown) carbon monox detector in home: Yes (units unknown) (unknown) (unknown) (no date) (unknown) (unknown) chlorhexidine Adverse Reaction (Intermediate, Verified 10/28/22 11:40) (units unknown) (unknown) (unknown) (no date) (unknown) (unknown) clobetasol 0.0 5 % topical ointment 1 applic topical BID #45 grams 07/01/22 [Rx (units unknown) (unknown) (unknown) (no date) (unknown) (unknown) current occupational exposures/hazards: No (units unknown) (unknown) (unknown) (no date) (unknown) (unknown) daily servings fruits/ve-1 (units unknown) (unknown) (unknown) (no date) (unknown) (unknown) days (units unknown) (unknown) (unknown) (no date) (unknown) (unknown) do you feel sa fe at home: Yes (units unknown) (unknown) (unknown) (no date) (unknown) (unknown) during the pas t year weight has: remained stable (units unknown) (unknown) (unknown) (no date) (unknown) (unknown) education leve l: other (units unknown) (unknown) (unknown) (no date) (unknown) (unknown) fire extinguis her in home: Yes (units unknown) (unknown) (unknown) (no date) (unknown) (unknown) firearms in ho me: No (units unknown) (unknown) (unknown) (no date) (unknown) (unknown) have occurred. If there are any questions, please contact the Medical Records (units unknown) (unknown) (unknown) (no date) (unknown) (unknown) household memb ers: significant other and children (units unknown) (unknown) (unknown) (no date) (unknown) (unknown) housing: apartment ( units unknown) (unknown) (unknown) (no date) (unknown) (unknown) irritable. No negative side effects. (units unknown) (unknown) (unknown) (no date) (unknown) (unknown) labetalol (units unknown) (unknown) (unknown) (no date) (unknown) (unknown) latex Adverse Reaction (Mild, Verified 10/28/22 11:40) (units unknown) (unknown) (unknown) (no date) (unknown) (unknown) lisinopril 40 mg PO DAILY 30 tabs 0RF (units unknown) (unknown) (unknown) (no date) (unknown) (unknown) lisinopril 40 mg tablet 40 mg PO DAILY #30 tabs 10/28/22 [Rx Confirmed 10/28/22] (units unknown) (unknown) (unknown) (no date) (unknown) (unknown) lives independently: Yes (units unknown) (unknown) (unknown) (no date) (unknown) (unknown) marital status : unmarried,living together (units unknown) (unknown) (unknown) (no date) (unknown) (unknown) may occur. Occasional wrong-word or 'sound-alike' substitutions may have (units unknown) (unknown) (unknown) (no date) (unknown) (unknown) more than usua l: several days (units unknown) (unknown) (unknown) (no date) (unknown) (unknown) nifedipine 30 mg tablet,extended release 24 hr 30 mg PO DAILY #30 tabs 10/28/22 (units unknown) (unknown) (unknown) (no date) (unknown) (unknown) nifedipine ER 30 mg PO DAILY 30 tabs 0RF (units unknown) (unknown) (unknown) (no date) (unknown) (unknown) number of chil dren: 2 (units unknown) (unknown) (unknown) (no date) (unknown) (unknown) occupational status: employed (units unknown) (unknown) (unknown) (no date) (unknown) (unknown) occurred due t o the inherent limitations of voice recognition software. Please (units unknown) (unknown) (unknown) (no date) (unknown) (unknown) opposite - feng ng so fidgety or restless that you have been moving around a lot (units unknown) (unknown) (unknown) (no date) (unknown) (unknown) people?: not difficult at all (units unknown) (unknown) (unknown) (no date) (unknown) (unknown) pets and anima ls: Yes (1 cat (pt is not managing litter box)) (units unknown) (unknown) (unknown) (no date) (unknown) (unknown) prenat.vits,ca l,min -iron-folic 1 tab PO DAILY 01/27/22 [History Confirmed (units unknown) (unknown) (unknown) (no date) (unknown) (unknown) problems? (units unknown) (unknown) (unknown) (no date) (unknown) (unknown) read the note carefully and recognize, using context, where these substitutions (units unknown) (unknown) (unknown) (no date) (unknown) (unknown) seatbelt use: always (units unknown) (unknown) (unknown) (no date) (unknown) (unknown) second hand exposure: No (units unknown) (unknown) (unknown) (no date) (unknown) (unknown) sertraline 50 mg tablet 50 mg PO DAILY #30 tabs 10/28/22 [Rx Confirmed 10/28/22] (units unknown) (unknown) (unknown) (no date) (unknown) (unknown) software. Alth ough every effort is made to edit content, right of way man errors (units unknown) (unknown) (unknown) (no date) (unknown) (unknown) special fly needs: No (units unknown) (unknown) (unknown) (no date) (unknown) (unknown) substance use type: marijuana (units unknown) (unknown) (unknown) (no date) (unknown) (unknown) television: no t at all (units unknown) (unknown) (unknown) (no date) (unknown) (unknown) [place] bedtime. (units unknown) (unknown) (unknown) (no date) (unknown) (unknown) water heater t emp set < 120 deg: Yes (Will check and adjust if needed) (units unknown) (unknown) (unknown) (no date) (unknown) (unknown) way: not at all (uni ts unknown) (unknown) (unknown) (no date) (unknown) (unknown) well-balanced diet: about half the time (units unknown) (unknown) (unknown) (no date) (unknown) (unknown) working smoke detector in home: Yes (units unknown) (unknown) (unknown) (no date) (unknown) (unknown) you to do your work, take care of things at home, or get along with other (units unknown) (unknown) Result panel 6 (unknown) (no date) (unknown) (unknown) (no value) (units unknown) (unknown) (unknown) (no date) (unknown) (unknown) (1) Hypertension: (u nits unknown) (unknown) (unknown) (no date) (unknown) (unknown) (2) Post partu m depression: (units unknown) (unknown) (unknown) (no date) (unknown) (unknown) (3) Fatigue: (units unknown) (unknown) (unknown) (no date) (unknown) (unknown) -CBC ordered. (units unknown) (unknown) (unknown) (no date) (unknown) (unknown) -Patient witho ut significant improvement in her mood on sertraline at this (units unknown) (unknown) (unknown) (no date) (unknown) (unknown) -Patient's blo od pressure is significantly elevated, does have family history of (units unknown) (unknown) (unknown) (no date) (unknown) (unknown) [id number] (units unknown) (unknown) (unknown) (no date) (unknown) (unknown) 10/28/22 (units unknown) (unknown) (unknown) (no date) (unknown) (unknown) 10/28/22] (units unknown) (unknown) (unknown) (no date) (unknown) (unknown) 1. Little inte rest or pleasure in doing things: several days (units unknown) (unknown) (unknown) (no date) (unknown) (unknown) 11:41 10/28/22 (unit s unknown) (unknown) (unknown) (no date) (unknown) (unknown) 11:49 (units unknown) (unknown) (unknown) (no date) (unknown) (unknown) 2. Feeling tracy n, depressed, or hopeless: not at all (units unknown) (unknown) (unknown) (no date) (unknown) (unknown) 2RF (units unknown) (unknown) (unknown) (no date) (unknown) (unknown) 3. Trouble fal ling or staying asleep, or sleeping too much: more than half the (units unknown) (unknown) (unknown) (no date) (unknown) (unknown) 4. Feeling tir ed or having little energy: nearly every day (units unknown) (unknown) (unknown) (no date) (unknown) (unknown) 5. Poor appeti te or overeating: several days (units unknown) (unknown) (unknown) (no date) (unknown) (unknown) 6 wk f/u (units unknown) (unknown) (unknown) (no date) (unknown) (unknown) 6. Feeling bad about yourself - or that you are a failure or have let yourself (units unknown) (unknown) (unknown) (no date) (unknown) (unknown) 7. Trouble concentrating on things, such as reading the newspaper or watching (units unknown) (unknown) (unknown) (no date) (unknown) (unknown) 8. Moving or speaking so slowly that other people could have noticed? - Or the (units unknown) (unknown) (unknown) (no date) (unknown) (unknown) 9. Thoughts th at you would be better off or of hurting yourself in some (units unknown) (unknown) (unknown) (no date) (unknown) (unknown) Age/Sex: 32 / F Date of Service: (units unknown) (unknown) (unknown) (no date) (unknown) (unknown) Allergies (units unknown) (unknown) (unknown) (no date) (unknown) (unknown) [facility] (units unknown) (unknown) (unknown) (no date) (unknown) (unknown) [place] [address] (units unknown) (unknown) (unknown) (no date) (unknown) (unknown) Assessment + Plan (u nits unknown) (unknown) (unknown) (no date) (unknown) (unknown) Assessment and Plan: (units unknown) (unknown) (unknown) (no date) (unknown) (unknown) Attending Dr: Rabia Gooden MD (units unknown) (unknown) (unknown) (no date) (unknown) (unknown) BMI 35.6 (units unknown) (unknown) (unknown) (no date) (unknown) (unknown) BP 168/102 H 1 66/96 H (units unknown) (unknown) (unknown) (no date) (unknown) (unknown) BPs 160s/100-1 10s. No chest pain, SOB. Swelling stable. Seeing spots (units unknown) (unknown) (unknown) (no date) (unknown) (unknown) Becoming easil y annoyed or irritable: 2 = More than half the days (units unknown) (unknown) (unknown) (no date) (unknown) (unknown) Being so restl ess that it is hard to sit still: 1 = Several days (units unknown) (unknown) (unknown) (no date) (unknown) (unknown) Blister (units unknown) (unknown) (unknown) (no date) (unknown) (unknown) Blood Pressure Location Lt brachial Rt brachial (units unknown) (unknown) (unknown) (no date) (unknown) (unknown) CV: Regular ra te and rhythm. No murmurs. (units unknown) (unknown) (unknown) (no date) (unknown) (unknown) CVA at a young age, need to more aggressively treat her blood pressures at this (units unknown) (unknown) (unknown) (no date) (unknown) (unknown) Changed (units unknown) (unknown) (unknown) (no date) (unknown) (unknown) Chief Complaint (uni ts unknown) (unknown) (unknown) (no date) (unknown) (unknown) Chief Complain t: Follow-up hypertension. (units unknown) (unknown) (unknown) (no date) (unknown) (unknown) Chronic cough (-2000) (units unknown) (unknown) (unknown) (no date) (unknown) (unknown) Complete Blood Count AUTO DIFF 4 Weeks R53.83 - Other fatigue (units unknown) (unknown) (unknown) (no date) (unknown) (unknown) Confirmed 10/28/22] (units unknown) (unknown) (unknown) (no date) (unknown) (unknown) : 0 Acct:[id number] (units unknown) (unknown) (unknown) (no date) (unknown) (unknown) Depression (units unknown) (unknown) (unknown) (no date) (unknown) (unknown) Depression/Bip olar (159/160/161/169/17 7) (units unknown) (unknown) (unknown) (no date) (unknown) (unknown) Dept at . (units unknown) (unknown) (unknown) (no date) (unknown) (unknown) Details: (units unknown) (unknown) (unknown) (no date) (unknown) (unknown) Diet and Exercise (u nits unknown) (unknown) (unknown) (no date) (unknown) (unknown) Discontinued Reason: Provider's Order 400 mg (4 x 100 mg) PO BID 360 tabs (units unknown) (unknown) (unknown) (no date) (unknown) (unknown) Discontinued (units unknown) (unknown) (unknown) (no date) (unknown) (unknown) Documented By: Rabia Gooden MD 10/28/22 1140 (units unknown) (unknown) (unknown) (no date) (unknown) (unknown) Draft (units unknown) (unknown) (unknown) (no date) (unknown) (unknown) Exam Narrative (unit s unknown) (unknown) (unknown) (no date) (unknown) (unknown) Exam Narrative: (uni ts unknown) (unknown) (unknown) (no date) (unknown) (unknown) Exam (units unknown) (unknown) (unknown) (no date) (unknown) (unknown) Extremities: T race edema. (units unknown) (unknown) (unknown) (no date) (unknown) (unknown) Family History (units unknown) (unknown) (unknown) (no date) (unknown) (unknown) Family Practic e Office Visit (units unknown) (unknown) (unknown) (no date) (unknown) (unknown) Feeling afraid as if something awful might happen: 2 = More than half the days (units unknown) (unknown) (unknown) (no date) (unknown) (unknown) Feeling nervou s, anxious, or on edge: 1 = Several days (units unknown) (unknown) (unknown) (no date) (unknown) (unknown) From sertralin e 25 mg PO DAILY 30 tabs 3RF (units unknown) (unknown) (unknown) (no date) (unknown) (unknown) KEY-7 (units unknown) (unknown) (unknown) (no date) (unknown) (unknown) General: No ac wales distress, sitting comfortably on bench, appears well. (units unknown) (unknown) (unknown) (no date) (unknown) (unknown) Grandfather Hypertension (units unknown) (unknown) (unknown) (no date) (unknown) (unknown) Grandmother Ty pe 2 diabetes mellitus (units unknown) (unknown) (unknown) (no date) (unknown) (unknown) H/O bilateral salpingectomy (units unknown) (unknown) (unknown) (no date) (unknown) (unknown) HPI (units unknown) (unknown) (unknown) (no date) (unknown) (unknown) Height 5 ft 2 in (un its unknown) (unknown) (unknown) (no date) (unknown) (unknown) Hypertension (units unknown) (unknown) (unknown) (no date) (unknown) (unknown) ITCHING (units unknown) (unknown) (unknown) (no date) (unknown) (unknown) If you checked off any problems, how difficult have these problems made it for (units unknown) (unknown) (unknown) (no date) (unknown) (unknown) Intake Note: (units unknown) (unknown) (unknown) (no date) (unknown) (unknown) Intake perform ed by: Gabriela Bagley (units unknown) (unknown) (unknown) (no date) (unknown) (unknown) Intake (units unknown) (unknown) (unknown) (no date) (unknown) (unknown) Intake- Isreal al Staff (units unknown) (unknown) (unknown) (no date) (unknown) (unknown) Last Menstural Cycle + Details (units unknown) (unknown) (unknown) (no date) (unknown) (unknown) Loc: [facility] (units unknown) (unknown) (unknown) (no date) (unknown) (unknown) Medical Histor y (Updated 08/04/22 @ 13:01 by Rabia Gooden MD) (units unknown) (unknown) (unknown) (no date) (unknown) (unknown) Medications (units unknown) (unknown) (unknown) (no date) (unknown) (unknown) Medications: (units unknown) (unknown) (unknown) (no date) (unknown) (unknown) Mother Age: 51 Stroke (units unknown) (unknown) (unknown) (no date) (unknown) (unknown) New (units unknown) (unknown) (unknown) (no date) (unknown) (unknown) Not being able to stop or control worryin = Several days (units unknown) (unknown) (unknown) (no date) (unknown) (unknown) Note (units unknown) (unknown) (unknown) (no date) (unknown) (unknown) Note: (units unknown) (unknown) (unknown) (no date) (unknown) (unknown) Notes (units unknown) (unknown) (unknown) (no date) (unknown) (unknown) Orders (units unknown) (unknown) (unknown) (no date) (unknown) (unknown) Orders: (units unknown) (unknown) (unknown) (no date) (unknown) (unknown) Other Menstrua l Period: Other (units unknown) (unknown) (unknown) (no date) (unknown) (unknown) Over the last 2 weeks, how often have you been bothered by any of the following (units unknown) (unknown) (unknown) (no date) (unknown) (unknown) Oxygen Deliver y Method room air (units unknown) (unknown) (unknown) (no date) (unknown) (unknown) PFSH (units unknown) (unknown) (unknown) (no date) (unknown) (unknown) PHQ-9 (units unknown) (unknown) (unknown) (no date) (unknown) (unknown) PUPP (pruritic urticarial papules and plaques of ) (units unknown) (unknown) (unknown) (no date) (unknown) (unknown) Patient: Ga Hagan MR#: [id number] (units unknown) (unknown) (unknown) (no date) (unknown) (unknown) Plantar fascii tis (-2015) (units unknown) (unknown) (unknown) (no date) (unknown) (unknown) Position Sitti ng Sitting (units unknown) (unknown) (unknown) (no date) (unknown) (unknown) Psoriasis (units unknown) (unknown) (unknown) (no date) (unknown) (unknown) Pt has been snapping at everyone. Not crying frequently, very boyce and (units unknown) (unknown) (unknown) (no date) (unknown) (unknown) Pulse 62 (units unknown) (unknown) (unknown) (no date) (unknown) (unknown) Pulse Oximetry (%) 98 (units unknown) (unknown) (unknown) (no date) (unknown) (unknown) Pulse Source Pulmonary Artery (units unknown) (unknown) (unknown) (no date) (unknown) (unknown) Quality Reporting (u nits unknown) (unknown) (unknown) (no date) (unknown) (unknown) Questionnaires (unit s unknown) (unknown) (unknown) (no date) (unknown) (unknown) RASH AND ITCHING (un its unknown) (unknown) (unknown) (no date) (unknown) (unknown) RASH (units unknown) (unknown) (unknown) (no date) (unknown) (unknown) Rash (units unknown) (unknown) (unknown) (no date) (unknown) (unknown) Reason For Visit (un its unknown) (unknown) (unknown) (no date) (unknown) (unknown) Refilled (units unknown) (unknown) (unknown) (no date) (unknown) (unknown) Respiratory: C lear to auscultation bilaterally. (units unknown) (unknown) (unknown) (no date) (unknown) (unknown) Safety (units unknown) (unknown) (unknown) (no date) (unknown) (unknown) Signed By: (units unknown) (unknown) (unknown) (no date) (unknown) (unknown) Smoking Status : Never smoker (units unknown) (unknown) (unknown) (no date) (unknown) (unknown) Social History (unit s unknown) (unknown) (unknown) (no date) (unknown) (unknown) Source: Develo ped by Drs. Clarke Fowler, Mavis Brown, Russell Richardson (units unknown) (unknown) (unknown) (no date) (unknown) (unknown) Status post appendectomy () (units unknown) (unknown) (unknown) (no date) (unknown) (unknown) Status post delivery (01/06/11) (units unknown) (unknown) (unknown) (no date) (unknown) (unknown) Status post delivery (units unknown) (unknown) (unknown) (no date) (unknown) (unknown) Sulfa (Sulfona mide Antibiotics) Allergy (Mild, Verified 10/28/22 11:40) (units unknown) (unknown) (unknown) (no date) (unknown) (unknown) Surgical Histo ry (Updated 09/11/22 @ 09:01 by Rabia Gooden MD) (units unknown) (unknown) (unknown) (no date) (unknown) (unknown) The patient fe els that she is tired all the time despite getting relatively (units unknown) (unknown) (unknown) (no date) (unknown) (unknown) The patient bhatia s not noticed a significant improvement in her mood since starting (units unknown) (unknown) (unknown) (no date) (unknown) (unknown) The patient is here to follow up on her hypertension. She reports that her blood (units unknown) (unknown) (unknown) (no date) (unknown) (unknown) This note may have been all or partially generated using voice recognition (units unknown) (unknown) (unknown) (no date) (unknown) (unknown) Tired all the time. (units unknown) (unknown) (unknown) (no date) (unknown) (unknown) To sertraline 50 mg PO DAILY 30 tabs 3RF (units unknown) (unknown) (unknown) (no date) (unknown) (unknown) Tobacco + Subs tance Use (units unknown) (unknown) (unknown) (no date) (unknown) (unknown) Tobacco Status (unit s unknown) (unknown) (unknown) (no date) (unknown) (unknown) Total KEY-7 sc ore (0-4 normal; 5-9 mild; 10-14 moderate; 15-21 severe): 9 (units unknown) (unknown) (unknown) (no date) (unknown) (unknown) Total score: 9 (unit s unknown) (unknown) (unknown) (no date) (unknown) (unknown) Trouble relaxi n = Several days (units unknown) (unknown) (unknown) (no date) (unknown) (unknown) Type(s) of exercise: none (units unknown) (unknown) (unknown) (no date) (unknown) (unknown) Visit Reasons: 6 WK FU (units unknown) (unknown) (unknown) (no date) (unknown) (unknown) Vitals (units unknown) (unknown) (unknown) (no date) (unknown) (unknown) Weight 195 lb (units unknown) (unknown) (unknown) (no date) (unknown) (unknown) Worrying too m uch about different things: 1 = Several days (units unknown) (unknown) (unknown) (no date) (unknown) (unknown) [Rx Confirmed 10/28/22] (units unknown) (unknown) (unknown) (no date) (unknown) (unknown) adequate sleep . She requests that we check a blood count to ensure she is not (units unknown) (unknown) (unknown) (no date) (unknown) (unknown) alcohol intake : former (units unknown) (unknown) (unknown) (no date) (unknown) (unknown) amoxicillin Raul patricia (Mild, Verified 10/28/22 11:40) (units unknown) (unknown) (unknown) (no date) (unknown) (unknown) and colleagues , with an educational rafat from [employer] (units unknown) (unknown) (unknown) (no date) (unknown) (unknown) and your famil y down: several days (units unknown) (unknown) (unknown) (no date) (unknown) (unknown) anemic. (units unknown) (unknown) (unknown) (no date) (unknown) (unknown) azithromycin Allergy (Mild, Verified 10/28/22 11:40) (units unknown) (unknown) (unknown) (no date) (unknown) (unknown) breath. She st ates her swelling is stable. She does sometimes see spots in her (units unknown) (unknown) (unknown) (no date) (unknown) (unknown) caffeine: Yes (units unknown) (unknown) (unknown) (no date) (unknown) (unknown) carbon monox detector in home: Yes (units unknown) (unknown) (unknown) (no date) (unknown) (unknown) chlorhexidine Adverse Reaction (Intermediate, Verified 10/28/22 11:40) (units unknown) (unknown) (unknown) (no date) (unknown) (unknown) clobetasol 0.0 5 % topical ointment 1 applic topical BID #45 grams 07/01/22 [Rx (units unknown) (unknown) (unknown) (no date) (unknown) (unknown) current occupational exposures/hazards: No (units unknown) (unknown) (unknown) (no date) (unknown) (unknown) daily servings fruits/ve-1 (units unknown) (unknown) (unknown) (no date) (unknown) (unknown) days (units unknown) (unknown) (unknown) (no date) (unknown) (unknown) do you feel sa fe at home: Yes (units unknown) (unknown) (unknown) (no date) (unknown) (unknown) during the pas t year weight has: remained stable (units unknown) (unknown) (unknown) (no date) (unknown) (unknown) education bren l: other (units unknown) (unknown) (unknown) (no date) (unknown) (unknown) fire extinguis her in home: Yes (units unknown) (unknown) (unknown) (no date) (unknown) (unknown) firearms in ho me: No (units unknown) (unknown) (unknown) (no date) (unknown) (unknown) have been in t he 160s/100s to 110s. She denies any chest pain or shortness of (units unknown) (unknown) (unknown) (no date) (unknown) (unknown) have occurred. If there are any questions, please contact the Medical Records (units unknown) (unknown) (unknown) (no date) (unknown) (unknown) household memb ers: significant other and children (units unknown) (unknown) (unknown) (no date) (unknown) (unknown) housing: apartment ( units unknown) (unknown) (unknown) (no date) (unknown) (unknown) irritable. No negative side effects. (units unknown) (unknown) (unknown) (no date) (unknown) (unknown) is snapping at everyone. She is not crying all that often, but states that she (units unknown) (unknown) (unknown) (no date) (unknown) (unknown) is very boyce and irritable. She denies any current SI/HI. (units unknown) (unknown) (unknown) (no date) (unknown) (unknown) labetalol (units unknown) (unknown) (unknown) (no date) (unknown) (unknown) latex Adverse Reaction (Mild, Verified 10/28/22 11:40) (units unknown) (unknown) (unknown) (no date) (unknown) (unknown) lisinopril 40 mg PO DAILY 30 tabs 0RF (units unknown) (unknown) (unknown) (no date) (unknown) (unknown) lisinopril 40 mg tablet 40 mg PO DAILY #30 tabs 10/28/22 [Rx Confirmed 10/28/22] (units unknown) (unknown) (unknown) (no date) (unknown) (unknown) lives independently: Yes (units unknown) (unknown) (unknown) (no date) (unknown) (unknown) marital status : unmarried,living together (units unknown) (unknown) (unknown) (no date) (unknown) (unknown) may occur. Occasional wrong-word or 'sound-alike' substitutions may have (units unknown) (unknown) (unknown) (no date) (unknown) (unknown) medications pr ior to that time. (units unknown) (unknown) (unknown) (no date) (unknown) (unknown) mg daily and f ollow up as above. (units unknown) (unknown) (unknown) (no date) (unknown) (unknown) more than usua l: several days (units unknown) (unknown) (unknown) (no date) (unknown) (unknown) nifedipine 30 mg tablet,extended release 24 hr 30 mg PO DAILY #30 tabs 10/28/22 (units unknown) (unknown) (unknown) (no date) (unknown) (unknown) nifedipine ER 30 mg PO DAILY 30 tabs 0RF (units unknown) (unknown) (unknown) (no date) (unknown) (unknown) number of chil dren: 2 (units unknown) (unknown) (unknown) (no date) (unknown) (unknown) occupational status: employed (units unknown) (unknown) (unknown) (no date) (unknown) (unknown) occurred due t o the inherent limitations of voice recognition software. Please (units unknown) (unknown) (unknown) (no date) (unknown) (unknown) opposite - feng ng so fidgety or restless that you have been moving around a lot (units unknown) (unknown) (unknown) (no date) (unknown) (unknown) people?: not difficult at all (units unknown) (unknown) (unknown) (no date) (unknown) (unknown) pets and anima ls: Yes (1 cat (pt is not managing litter box)) (units unknown) (unknown) (unknown) (no date) (unknown) (unknown) point, however , no negative side effects. We will trial increasing dosing to 50 (units unknown) (unknown) (unknown) (no date) (unknown) (unknown) prenat.vits,ca l,min -iron-folic 1 tab PO DAILY 01/27/22 [History Confirmed (units unknown) (unknown) (unknown) (no date) (unknown) (unknown) pressure when that occurs. (units unknown) (unknown) (unknown) (no date) (unknown) (unknown) pressures at h ome have been quite elevated since stopping the nifedipine. They (units unknown) (unknown) (unknown) (no date) (unknown) (unknown) problems? (units unknown) (unknown) (unknown) (no date) (unknown) (unknown) read the note carefully and recognize, using context, where these substitutions (units unknown) (unknown) (unknown) (no date) (unknown) (unknown) seatbelt use: always (units unknown) (unknown) (unknown) (no date) (unknown) (unknown) second hand exposure: No (units unknown) (unknown) (unknown) (no date) (unknown) (unknown) sertraline 50 mg tablet 50 mg PO DAILY #30 tabs 10/28/22 [Rx Confirmed 10/28/22] (units unknown) (unknown) (unknown) (no date) (unknown) (unknown) software. Alth ough every effort is made to edit content, right of way man errors (units unknown) (unknown) (unknown) (no date) (unknown) (unknown) special fly needs: No (units unknown) (unknown) (unknown) (no date) (unknown) (unknown) substance use type: marijuana (units unknown) (unknown) (unknown) (no date) (unknown) (unknown) television: no t at all (units unknown) (unknown) (unknown) (no date) (unknown) (unknown) the sertraline , however, denies any side effects. She continues to feel like she (units unknown) (unknown) (unknown) (no date) (unknown) (unknown) time. We will transition from labetalol to lisinopril 40 mg daily, in addition (units unknown) (unknown) (unknown) (no date) (unknown) (unknown) to having the patient restart her carvedilol. We will have her follow up in 3 (units unknown) (unknown) (unknown) (no date) (unknown) (unknown) typically [place] bedtime. (units unknown) (unknown) (unknown) (no date) (unknown) (unknown) vision, but th is is usually around bedtime. She does not always check her blood (units unknown) (unknown) (unknown) (no date) (unknown) (unknown) water heater t emp set < 120 deg: Yes (Will check and adjust if needed) (units unknown) (unknown) (unknown) (no date) (unknown) (unknown) way: not at all (uni ts unknown) (unknown) (unknown) (no date) (unknown) (unknown) weeks with her blood pressure log to ensure improvement. She will let us know (units unknown) (unknown) (unknown) (no date) (unknown) (unknown) well-balanced diet: about half the time (units unknown) (unknown) (unknown) (no date) (unknown) (unknown) within a week if no improvement in her blood pressure, however, and may adjust (units unknown) (unknown) (unknown) (no date) (unknown) (unknown) working smoke detector in home: Yes (units unknown) (unknown) (unknown) (no date) (unknown) (unknown) you to do your work, take care of things at home, or get along with other (units unknown) (unknown) Result panel 7 (unknown) (no date) (unknown) (unknown) (no value) (units unknown) (unknown) (unknown) (no date) (unknown) (unknown) (1) Hypertension: (u nits unknown) (unknown) (unknown) (no date) (unknown) (unknown) (2) Post partu m depression: (units unknown) (unknown) (unknown) (no date) (unknown) (unknown) (3) Fatigue: (units unknown) (unknown) (unknown) (no date) (unknown) (unknown) -CBC ordered. (units unknown) (unknown) (unknown) (no date) (unknown) (unknown) -Patient witho ut significant improvement in her mood on sertraline at this (units unknown) (unknown) (unknown) (no date) (unknown) (unknown) -Patient's blo od pressure is significantly elevated, does have family history of (units unknown) (unknown) (unknown) (no date) (unknown) (unknown) [id number] (units unknown) (unknown) (unknown) (no date) (unknown) (unknown) 10/28/22 (units unknown) (unknown) (unknown) (no date) (unknown) (unknown) 10/28/22] (units unknown) (unknown) (unknown) (no date) (unknown) (unknown) 11/02/22 1431 (units unknown) (unknown) (unknown) (no date) (unknown) (unknown) 1. Little inte rest or pleasure in doing things: several days (units unknown) (unknown) (unknown) (no date) (unknown) (unknown) 11:41 10/28/22 (unit s unknown) (unknown) (unknown) (no date) (unknown) (unknown) 11:49 (units unknown) (unknown) (unknown) (no date) (unknown) (unknown) 2. Feeling tracy n, depressed, or hopeless: not at all (units unknown) (unknown) (unknown) (no date) (unknown) (unknown) 2RF (units unknown) (unknown) (unknown) (no date) (unknown) (unknown) 3. Trouble fal ling or staying asleep, or sleeping too much: more than half the (units unknown) (unknown) (unknown) (no date) (unknown) (unknown) 4. Feeling tir ed or having little energy: nearly every day (units unknown) (unknown) (unknown) (no date) (unknown) (unknown) 5. Poor appeti te or overeating: several days (units unknown) (unknown) (unknown) (no date) (unknown) (unknown) 6 wk f/u (units unknown) (unknown) (unknown) (no date) (unknown) (unknown) 6. Feeling bad about yourself - or that you are a failure or have let yourself (units unknown) (unknown) (unknown) (no date) (unknown) (unknown) 7. Trouble concentrating on things, such as reading the newspaper or watching (units unknown) (unknown) (unknown) (no date) (unknown) (unknown) 8. Moving or speaking so slowly that other people could have noticed? - Or the (units unknown) (unknown) (unknown) (no date) (unknown) (unknown) 9. Thoughts th at you would be better off or of hurting yourself in some (units unknown) (unknown) (unknown) (no date) (unknown) (unknown) Age/Sex: 32 / F Date of Service: (units unknown) (unknown) (unknown) (no date) (unknown) (unknown) Allergies (units unknown) (unknown) (unknown) (no date) (unknown) (unknown) Cyndee Russell [facility] Medicine (units unknown) (unknown) (unknown) (no date) (unknown) (unknown) BHAVYA Cotter [id number] (units unknown) (unknown) (unknown) (no date) (unknown) (unknown) Assessment + Plan (u nits unknown) (unknown) (unknown) (no date) (unknown) (unknown) Assessment and Plan: (units unknown) (unknown) (unknown) (no date) (unknown) (unknown) Attending Dr: Rabia Gooden MD (units unknown) (unknown) (unknown) (no date) (unknown) (unknown) BMI 35.6 (units unknown) (unknown) (unknown) (no date) (unknown) (unknown) BP 168/102 H 1 66/96 H (units unknown) (unknown) (unknown) (no date) (unknown) (unknown) BPs 160s/100-1 10s. No chest pain, SOB. Swelling stable. Seeing spots (units unknown) (unknown) (unknown) (no date) (unknown) (unknown) Becoming easil y annoyed or irritable: 2 = More than half the days (units unknown) (unknown) (unknown) (no date) (unknown) (unknown) Being so restl ess that it is hard to sit still: 1 = Several days (units unknown) (unknown) (unknown) (no date) (unknown) (unknown) Blister (units unknown) (unknown) (unknown) (no date) (unknown) (unknown) Blood Pressure Location Lt brachial Rt brachial (units unknown) (unknown) (unknown) (no date) (unknown) (unknown) CV: Regular ra te and rhythm. No murmurs. (units unknown) (unknown) (unknown) (no date) (unknown) (unknown) CVA at a young age, need to more aggressively treat her blood pressures at this (units unknown) (unknown) (unknown) (no date) (unknown) (unknown) Changed (units unknown) (unknown) (unknown) (no date) (unknown) (unknown) Chief Complaint (uni ts unknown) (unknown) (unknown) (no date) (unknown) (unknown) Chief Complain t: Follow-up hypertension. (units unknown) (unknown) (unknown) (no date) (unknown) (unknown) Chronic cough (-2000) (units unknown) (unknown) (unknown) (no date) (unknown) (unknown) Complete Blood Count AUTO DIFF 4 Weeks R53.83 - Other fatigue (units unknown) (unknown) (unknown) (no date) (unknown) (unknown) Confirmed 10/28/22] (units unknown) (unknown) (unknown) (no date) (unknown) (unknown) : 0 Acct:[id number] (units unknown) (unknown) (unknown) (no date) (unknown) (unknown) Depression (units unknown) (unknown) (unknown) (no date) (unknown) (unknown) Depression/Bip olar (159/160/161/169/17 7) (units unknown) (unknown) (unknown) (no date) (unknown) (unknown) Dept at . (units unknown) (unknown) (unknown) (no date) (unknown) (unknown) Details: (units unknown) (unknown) (unknown) (no date) (unknown) (unknown) Diet and Exercise (u nits unknown) (unknown) (unknown) (no date) (unknown) (unknown) Discontinued Reason: Provider's Order 400 mg (4 x 100 mg) PO BID 360 tabs (units unknown) (unknown) (unknown) (no date) (unknown) (unknown) Discontinued (units unknown) (unknown) (unknown) (no date) (unknown) (unknown) Documented By: Rabia Gooden MD 10/28/22 1140 (units unknown) (unknown) (unknown) (no date) (unknown) (unknown) Exam Narrative (unit s unknown) (unknown) (unknown) (no date) (unknown) (unknown) Exam Narrative: (uni ts unknown) (unknown) (unknown) (no date) (unknown) (unknown) Exam (units unknown) (unknown) (unknown) (no date) (unknown) (unknown) Extremities: T race edema. (units unknown) (unknown) (unknown) (no date) (unknown) (unknown) Family History (units unknown) (unknown) (unknown) (no date) (unknown) (unknown) Family Practic e Office Visit (units unknown) (unknown) (unknown) (no date) (unknown) (unknown) Feeling afraid as if something awful might happen: 2 = More than half the days (units unknown) (unknown) (unknown) (no date) (unknown) (unknown) Feeling nervou s, anxious, or on edge: 1 = Several days (units unknown) (unknown) (unknown) (no date) (unknown) (unknown) From sertralin e 25 mg PO DAILY 30 tabs 3RF (units unknown) (unknown) (unknown) (no date) (unknown) (unknown) KEY-7 (units unknown) (unknown) (unknown) (no date) (unknown) (unknown) General: No ac wales distress, sitting comfortably on bench, appears well. (units unknown) (unknown) (unknown) (no date) (unknown) (unknown) Grandfather Hypertension (units unknown) (unknown) (unknown) (no date) (unknown) (unknown) Grandmother Ty pe 2 diabetes mellitus (units unknown) (unknown) (unknown) (no date) (unknown) (unknown) H/O bilateral salpingectomy (units unknown) (unknown) (unknown) (no date) (unknown) (unknown) HPI (units unknown) (unknown) (unknown) (no date) (unknown) (unknown) Height 5 ft 2 in (un its unknown) (unknown) (unknown) (no date) (unknown) (unknown) Hypertension (units unknown) (unknown) (unknown) (no date) (unknown) (unknown) ISigned (units unknown) (unknown) (unknown) (no date) (unknown) (unknown) ITCHING (units unknown) (unknown) (unknown) (no date) (unknown) (unknown) If you checked off any problems, how difficult have these problems made it for (units unknown) (unknown) (unknown) (no date) (unknown) (unknown) Intake Note: (units unknown) (unknown) (unknown) (no date) (unknown) (unknown) Intake perform ed by: Gabriela Bagley (units unknown) (unknown) (unknown) (no date) (unknown) (unknown) Intake (units unknown) (unknown) (unknown) (no date) (unknown) (unknown) Intake- Clinc[facility] al Staff (units unknown) (unknown) (unknown) (no date) (unknown) (unknown) Last Menstural Cycle + Details (units unknown) (unknown) (unknown) (no date) (unknown) (unknown) Loc: [facility] (units unknown) (unknown) (unknown) (no date) (unknown) (unknown) Medical Histor y (Updated 08/04/22 @ 13:01 by Rabia Gooden MD) (units unknown) (unknown) (unknown) (no date) (unknown) (unknown) Medications (units unknown) (unknown) (unknown) (no date) (unknown) (unknown) Medications: (units unknown) (unknown) (unknown) (no date) (unknown) (unknown) Mother Age: 51 Stroke (units unknown) (unknown) (unknown) (no date) (unknown) (unknown) New (units unknown) (unknown) (unknown) (no date) (unknown) (unknown) Not being able to stop or control worryin = Several days (units unknown) (unknown) (unknown) (no date) (unknown) (unknown) Note (units unknown) (unknown) (unknown) (no date) (unknown) (unknown) Note: (units unknown) (unknown) (unknown) (no date) (unknown) (unknown) Notes (units unknown) (unknown) (unknown) (no date) (unknown) (unknown) Orders (units unknown) (unknown) (unknown) (no date) (unknown) (unknown) Orders: (units unknown) (unknown) (unknown) (no date) (unknown) (unknown) Other Menstrua l Period: Other (units unknown) (unknown) (unknown) (no date) (unknown) (unknown) Over the last 2 weeks, how often have you been bothered by any of the following (units unknown) (unknown) (unknown) (no date) (unknown) (unknown) Oxygen Deliver y Method room air (units unknown) (unknown) (unknown) (no date) (unknown) (unknown) PFSH (units unknown) (unknown) (unknown) (no date) (unknown) (unknown) PHQ-9 (units unknown) (unknown) (unknown) (no date) (unknown) (unknown) PUPP (pruritic urticarial papules and plaques of ) (units unknown) (unknown) (unknown) (no date) (unknown) (unknown) Patient: Ga Hagan MR#: [id number] (units unknown) (unknown) (unknown) (no date) (unknown) (unknown) Plantar fascii tis (-2015) (units unknown) (unknown) (unknown) (no date) (unknown) (unknown) Position Sitti ng Sitting (units unknown) (unknown) (unknown) (no date) (unknown) (unknown) Psoriasis (units unknown) (unknown) (unknown) (no date) (unknown) (unknown) Pt has been snapping at everyone. Not crying frequently, very boyce and (units unknown) (unknown) (unknown) (no date) (unknown) (unknown) Pulse 62 (units unknown) (unknown) (unknown) (no date) (unknown) (unknown) Pulse Oximetry (%) 98 (units unknown) (unknown) (unknown) (no date) (unknown) (unknown) Pulse Source Pulmonary Artery (units unknown) (unknown) (unknown) (no date) (unknown) (unknown) Quality Reporting (u nits unknown) (unknown) (unknown) (no date) (unknown) (unknown) Questionnaires (unit s unknown) (unknown) (unknown) (no date) (unknown) (unknown) RASH AND ITCHING (un its unknown) (unknown) (unknown) (no date) (unknown) (unknown) RASH (units unknown) (unknown) (unknown) (no date) (unknown) (unknown) Rash (units unknown) (unknown) (unknown) (no date) (unknown) (unknown) Reason For Visit (un its unknown) (unknown) (unknown) (no date) (unknown) (unknown) Refilled (units unknown) (unknown) (unknown) (no date) (unknown) (unknown) Respiratory: C lear to auscultation bilaterally. (units unknown) (unknown) (unknown) (no date) (unknown) (unknown) Safety (units unknown) (unknown) (unknown) (no date) (unknown) (unknown) Signed By: <Electronically signed by Tyson Walter> (units unknown) (unknown) (unknown) (no date) (unknown) (unknown) Smoking Status : Never smoker (units unknown) (unknown) (unknown) (no date) (unknown) (unknown) Social History (unit s unknown) (unknown) (unknown) (no date) (unknown) (unknown) Source: [place] ped by Drs. Clarke Fowler, Mavis Brown, Russell Richardson (units unknown) (unknown) (unknown) (no date) (unknown) (unknown) Status post appendectomy (-1993) (units unknown) (unknown) (unknown) (no date) (unknown) (unknown) Status post delivery (01/06/11) (units unknown) (unknown) (unknown) (no date) (unknown) (unknown) Status post delivery (units unknown) (unknown) (unknown) (no date) (unknown) (unknown) Sulfa (Sulfona mide Antibiotics) Allergy (Mild, Verified 10/28/22 11:40) (units unknown) (unknown) (unknown) (no date) (unknown) (unknown) Surgical Histo ry (Updated 09/11/22 @ 09:01 by Rabia Gooden MD) (units unknown) (unknown) (unknown) (no date) (unknown) (unknown) The patient fe els that she is tired all the time despite getting relatively (units unknown) (unknown) (unknown) (no date) (unknown) (unknown) The patient hbatia s not noticed a significant improvement in her mood since starting (units unknown) (unknown) (unknown) (no date) (unknown) (unknown) The patient is here to follow up on her hypertension. She reports that her blood (units unknown) (unknown) (unknown) (no date) (unknown) (unknown) This note may have been all or partially generated using voice recognition (units unknown) (unknown) (unknown) (no date) (unknown) (unknown) Tired all the time. (units unknown) (unknown) (unknown) (no date) (unknown) (unknown) To sertraline 50 mg PO DAILY 30 tabs 3RF (units unknown) (unknown) (unknown) (no date) (unknown) (unknown) Tobacco + Subs tance Use (units unknown) (unknown) (unknown) (no date) (unknown) (unknown) Tobacco Status (unit s unknown) (unknown) (unknown) (no date) (unknown) (unknown) Total KEY-7 sc ore (0-4 normal; 5-9 mild; 10-14 moderate; 15-21 severe): 9 (units unknown) (unknown) (unknown) (no date) (unknown) (unknown) Total score: 9 (unit s unknown) (unknown) (unknown) (no date) (unknown) (unknown) Trouble relaxi n = Several days (units unknown) (unknown) (unknown) (no date) (unknown) (unknown) Type(s) of exercise: none (units unknown) (unknown) (unknown) (no date) (unknown) (unknown) Visit Reasons: 6 WK FU (units unknown) (unknown) (unknown) (no date) (unknown) (unknown) Vitals (units unknown) (unknown) (unknown) (no date) (unknown) (unknown) Weight 195 lb (units unknown) (unknown) (unknown) (no date) (unknown) (unknown) Worrying too m uch about different things: 1 = Several days (units unknown) (unknown) (unknown) (no date) (unknown) (unknown) [Rx Confirmed 10/28/22] (units unknown) (unknown) (unknown) (no date) (unknown) (unknown) adequate sleep . She requests that we check a blood count to ensure she is not (units unknown) (unknown) (unknown) (no date) (unknown) (unknown) alcohol intake : former (units unknown) (unknown) (unknown) (no date) (unknown) (unknown) amoxicillin Al harshad (Mild, Verified 10/28/22 11:40) (units unknown) (unknown) (unknown) (no date) (unknown) (unknown) and colleagues , with an educational rafat from [employer] (units unknown) (unknown) (unknown) (no date) (unknown) (unknown) and your famil y down: several days (units unknown) (unknown) (unknown) (no date) (unknown) (unknown) anemic. (units unknown) (unknown) (unknown) (no date) (unknown) (unknown) azithromycin Allergy (Mild, Verified 10/28/22 11:40) (units unknown) (unknown) (unknown) (no date) (unknown) (unknown) breath. She st ates her swelling is stable. She does sometimes see spots in her (units unknown) (unknown) (unknown) (no date) (unknown) (unknown) caffeine: Yes (units unknown) (unknown) (unknown) (no date) (unknown) (unknown) carbon monox detector in home: Yes (units unknown) (unknown) (unknown) (no date) (unknown) (unknown) chlorhexidine Adverse Reaction (Intermediate, Verified 10/28/22 11:40) (units unknown) (unknown) (unknown) (no date) (unknown) (unknown) clobetasol 0.0 5 % topical ointment 1 applic topical BID #45 grams 07/01/22 [Rx (units unknown) (unknown) (unknown) (no date) (unknown) (unknown) current occupational exposures/hazards: No (units unknown) (unknown) (unknown) (no date) (unknown) (unknown) daily servings fruits/ve-1 (units unknown) (unknown) (unknown) (no date) (unknown) (unknown) days (units unknown) (unknown) (unknown) (no date) (unknown) (unknown) do you feel sa fe at home: Yes (units unknown) (unknown) (unknown) (no date) (unknown) (unknown) during the pas t year weight has: remained stable (units unknown) (unknown) (unknown) (no date) (unknown) (unknown) education heterra l: other (units unknown) (unknown) (unknown) (no date) (unknown) (unknown) fire extinguis her in home: Yes (units unknown) (unknown) (unknown) (no date) (unknown) (unknown) firearms in ho me: No (units unknown) (unknown) (unknown) (no date) (unknown) (unknown) have been in t he 160s/100s to 110s. She denies any chest pain or shortness of (units unknown) (unknown) (unknown) (no date) (unknown) (unknown) have occurred. If there are any questions, please contact the Medical Records (units unknown) (unknown) (unknown) (no date) (unknown) (unknown) household memb ers: significant other and children (units unknown) (unknown) (unknown) (no date) (unknown) (unknown) housing: apartment ( units unknown) (unknown) (unknown) (no date) (unknown) (unknown) irritable. No negative side effects. (units unknown) (unknown) (unknown) (no date) (unknown) (unknown) is snapping at everyone. She is not crying all that often, but states that she (units unknown) (unknown) (unknown) (no date) (unknown) (unknown) is very boyce and irritable. She denies any current SI/HI. (units unknown) (unknown) (unknown) (no date) (unknown) (unknown) labetalol (units unknown) (unknown) (unknown) (no date) (unknown) (unknown) latex Adverse Reaction (Mild, Verified 10/28/22 11:40) (units unknown) (unknown) (unknown) (no date) (unknown) (unknown) lisinopril 40 mg PO DAILY 30 tabs 0RF (units unknown) (unknown) (unknown) (no date) (unknown) (unknown) lisinopril 40 mg tablet 40 mg PO DAILY #30 tabs 10/28/22 [Rx Confirmed 10/28/22] (units unknown) (unknown) (unknown) (no date) (unknown) (unknown) lives independently: Yes (units unknown) (unknown) (unknown) (no date) (unknown) (unknown) marital status : unmarried,living together (units unknown) (unknown) (unknown) (no date) (unknown) (unknown) may occur. Occasional wrong-word or 'sound-alike' substitutions may have (units unknown) (unknown) (unknown) (no date) (unknown) (unknown) medications pr ior to that time. (units unknown) (unknown) (unknown) (no date) (unknown) (unknown) mg daily and f ollow up as above. (units unknown) (unknown) (unknown) (no date) (unknown) (unknown) more than usua l: several days (units unknown) (unknown) (unknown) (no date) (unknown) (unknown) nifedipine 30 mg tablet,extended release 24 hr 30 mg PO DAILY #30 tabs 10/28/22 (units unknown) (unknown) (unknown) (no date) (unknown) (unknown) nifedipine ER 30 mg PO DAILY 30 tabs 0RF (units unknown) (unknown) (unknown) (no date) (unknown) (unknown) number of chil dren: 2 (units unknown) (unknown) (unknown) (no date) (unknown) (unknown) occupational status: employed (units unknown) (unknown) (unknown) (no date) (unknown) (unknown) occurred due t o the inherent limitations of voice recognition software. Please (units unknown) (unknown) (unknown) (no date) (unknown) (unknown) opposite - feng ng so fidgety or restless that you have been moving around a lot (units unknown) (unknown) (unknown) (no date) (unknown) (unknown) people?: not difficult at all (units unknown) (unknown) (unknown) (no date) (unknown) (unknown) pets and anima ls: Yes (1 cat (pt is not managing litter box)) (units unknown) (unknown) (unknown) (no date) (unknown) (unknown) point, however , no negative side effects. We will trial increasing dosing to 50 (units unknown) (unknown) (unknown) (no date) (unknown) (unknown) prenat.vits,ca l,min -iron-folic 1 tab PO DAILY 01/27/22 [History Confirmed (units unknown) (unknown) (unknown) (no date) (unknown) (unknown) pressure when that occurs. (units unknown) (unknown) (unknown) (no date) (unknown) (unknown) pressures at h ome have been quite elevated since stopping the nifedipine. They (units unknown) (unknown) (unknown) (no date) (unknown) (unknown) problems? (units unknown) (unknown) (unknown) (no date) (unknown) (unknown) read the note carefully and recognize, using context, where these substitutions (units unknown) (unknown) (unknown) (no date) (unknown) (unknown) seatbelt use: always (units unknown) (unknown) (unknown) (no date) (unknown) (unknown) second hand exposure: No (units unknown) (unknown) (unknown) (no date) (unknown) (unknown) sertraline 50 mg tablet 50 mg PO DAILY #30 tabs 10/28/22 [Rx Confirmed 10/28/22] (units unknown) (unknown) (unknown) (no date) (unknown) (unknown) software. Alth ough every effort is made to edit content, right of way man errors (units unknown) (unknown) (unknown) (no date) (unknown) (unknown) special fly needs: No (units unknown) (unknown) (unknown) (no date) (unknown) (unknown) substance use type: marijuana (units unknown) (unknown) (unknown) (no date) (unknown) (unknown) television: no t at all (units unknown) (unknown) (unknown) (no date) (unknown) (unknown) the sertraline , however, denies any side effects. She continues to feel like she (units unknown) (unknown) (unknown) (no date) (unknown) (unknown) time. We will transition from labetalol to lisinopril 40 mg daily, in addition (units unknown) (unknown) (unknown) (no date) (unknown) (unknown) to having the patient restart her carvedilol. We will have her follow up in 3 (units unknown) (unknown) (unknown) (no date) (unknown) (unknown) typically [place] bedtime. (units unknown) (unknown) (unknown) (no date) (unknown) (unknown) vision, but th is is usually around bedtime. She does not always check her blood (units unknown) (unknown) (unknown) (no date) (unknown) (unknown) water heater t emp set < 120 deg: Yes (Will check and adjust if needed) (units unknown) (unknown) (unknown) (no date) (unknown) (unknown) way: not at all (uni ts unknown) (unknown) (unknown) (no date) (unknown) (unknown) weeks with her blood pressure log to ensure improvement. She will let us know (units unknown) (unknown) (unknown) (no date) (unknown) (unknown) well-balanced diet: about half the time (units unknown) (unknown) (unknown) (no date) (unknown) (unknown) within a week if no improvement in her blood pressure, however, and may adjust (units unknown) (unknown) (unknown) (no date) (unknown) (unknown) working smoke detector in home: Yes (units unknown) (unknown) (unknown) (no date) (unknown) (unknown) you to do your work, take care of things at home, or get along with other (units unknown) (unknown) Result panel 8 (unknown) (no date) (unknown) (unknown) (no value) (units unknown) (unknown) (unknown) (no date) (unknown) (unknown) <Electronicall y signed by Tyson Walter> (units unknown) (unknown) (unknown) (no date) (unknown) (unknown) (1) Hypertension: (u nits unknown) (unknown) (unknown) (no date) (unknown) (unknown) (2) Post partu m depression: (units unknown) (unknown) (unknown) (no date) (unknown) (unknown) (3) Fatigue: (units unknown) (unknown) (unknown) (no date) (unknown) (unknown) -CBC ordered. (units unknown) (unknown) (unknown) (no date) (unknown) (unknown) -Patient witho ut significant improvement in her mood on sertraline at this (units unknown) (unknown) (unknown) (no date) (unknown) (unknown) -Patient's blo od pressure is significantly elevated, does have family history of (units unknown) (unknown) (unknown) (no date) (unknown) (unknown) [id number] (units unknown) (unknown) (unknown) (no date) (unknown) (unknown) 10/28/22 (units unknown) (unknown) (unknown) (no date) (unknown) (unknown) 10/28/22] (units unknown) (unknown) (unknown) (no date) (unknown) (unknown) 11/02/22 1431 (units unknown) (unknown) (unknown) (no date) (unknown) (unknown) 11/03/22 0754 (units unknown) (unknown) (unknown) (no date) (unknown) (unknown) 1. Little inte rest or pleasure in doing things: several days (units unknown) (unknown) (unknown) (no date) (unknown) (unknown) 11:41 10/28/22 (unit s unknown) (unknown) (unknown) (no date) (unknown) (unknown) 11:49 (units unknown) (unknown) (unknown) (no date) (unknown) (unknown) 2. Feeling tracy n, depressed, or hopeless: not at all (units unknown) (unknown) (unknown) (no date) (unknown) (unknown) 2RF (units unknown) (unknown) (unknown) (no date) (unknown) (unknown) 3. Trouble fal ling or staying asleep, or sleeping too much: more than half the (units unknown) (unknown) (unknown) (no date) (unknown) (unknown) 4. Feeling tir ed or having little energy: nearly every day (units unknown) (unknown) (unknown) (no date) (unknown) (unknown) 5. Poor appeti te or overeating: several days (units unknown) (unknown) (unknown) (no date) (unknown) (unknown) 6 wk f/u (units unknown) (unknown) (unknown) (no date) (unknown) (unknown) 6. Feeling bad about yourself - or that you are a failure or have let yourself (units unknown) (unknown) (unknown) (no date) (unknown) (unknown) 7. Trouble concentrating on things, such as reading the newspaper or watching (units unknown) (unknown) (unknown) (no date) (unknown) (unknown) 8. Moving or speaking so slowly that other people could have noticed? - Or the (units unknown) (unknown) (unknown) (no date) (unknown) (unknown) 9. Thoughts th at you would be better off or of hurting yourself in some (units unknown) (unknown) (unknown) (no date) (unknown) (unknown) Age/Sex: 32 / F Date of Service: (units unknown) (unknown) (unknown) (no date) (unknown) (unknown) Allergies (units unknown) (unknown) (unknown) (no date) (unknown) (unknown) [facility] ([facility]) (unknown) (unknown) (no date) (unknown) (unknown) BHAVYA Cotter [id number] (units unknown) (unknown) (unknown) (no date) (unknown) (unknown) Assessment + Plan (u nits unknown) (unknown) (unknown) (no date) (unknown) (unknown) Assessment and Plan: (units unknown) (unknown) (unknown) (no date) (unknown) (unknown) Attending Dr: Rabia Gooden MD (units unknown) (unknown) (unknown) (no date) (unknown) (unknown) BMI 35.6 (units unknown) (unknown) (unknown) (no date) (unknown) (unknown) BP 168/102 H 1 66/96 H (units unknown) (unknown) (unknown) (no date) (unknown) (unknown) Becoming easil y annoyed or irritable: 2 = More than half the days (units unknown) (unknown) (unknown) (no date) (unknown) (unknown) Being so restl ess that it is hard to sit still: 1 = Several days (units unknown) (unknown) (unknown) (no date) (unknown) (unknown) Blister (units unknown) (unknown) (unknown) (no date) (unknown) (unknown) Blood Pressure Location Lt brachial Rt brachial (units unknown) (unknown) (unknown) (no date) (unknown) (unknown) CV: Regular ra te and rhythm. No murmurs. (units unknown) (unknown) (unknown) (no date) (unknown) (unknown) CVA at a young age, need to more aggressively treat her blood pressures at this (units unknown) (unknown) (unknown) (no date) (unknown) (unknown) Changed (units unknown) (unknown) (unknown) (no date) (unknown) (unknown) Chief Complaint (uni ts unknown) (unknown) (unknown) (no date) (unknown) (unknown) Chief Complain t: Follow-up hypertension. (units unknown) (unknown) (unknown) (no date) (unknown) (unknown) Chronic cough () (units unknown) (unknown) (unknown) (no date) (unknown) (unknown) Complete Blood Count AUTO DIFF 4 Weeks R53.83 - Other fatigue (units unknown) (unknown) (unknown) (no date) (unknown) (unknown) Confirmed 10/28/22] (units unknown) (unknown) (unknown) (no date) (unknown) (unknown) : 0 Acct:[id number] (units unknown) (unknown) (unknown) (no date) (unknown) (unknown) Depression (units unknown) (unknown) (unknown) (no date) (unknown) (unknown) Depression/Bip olar (159/160/161/169/17 7) (units unknown) (unknown) (unknown) (no date) (unknown) (unknown) Dept at . (units unknown) (unknown) (unknown) (no date) (unknown) (unknown) Details: (units unknown) (unknown) (unknown) (no date) (unknown) (unknown) Diet and Exercise (u nits unknown) (unknown) (unknown) (no date) (unknown) (unknown) Discontinued Reason: Provider's Order 400 mg (4 x 100 mg) PO BID 360 tabs (units unknown) (unknown) (unknown) (no date) (unknown) (unknown) Discontinued (units unknown) (unknown) (unknown) (no date) (unknown) (unknown) Documented By: Rabia Gooden MD 10/28/22 1140 (units unknown) (unknown) (unknown) (no date) (unknown) (unknown) Essential (miquel rahat) hypertension (units unknown) (unknown) (unknown) (no date) (unknown) (unknown) Exam Narrative (unit s unknown) (unknown) (unknown) (no date) (unknown) (unknown) Exam Narrative: (uni ts unknown) (unknown) (unknown) (no date) (unknown) (unknown) Exam (units unknown) (unknown) (unknown) (no date) (unknown) (unknown) Extremities: T race edema. (units unknown) (unknown) (unknown) (no date) (unknown) (unknown) Family History (units unknown) (unknown) (unknown) (no date) (unknown) (unknown) Family Practic e Office Visit (units unknown) (unknown) (unknown) (no date) (unknown) (unknown) Fatigue type: unspecified Qualified Code(s): R53.83 - Other fatigue (units unknown) (unknown) (unknown) (no date) (unknown) (unknown) Feeling afraid as if something awful might happen: 2 = More than half the days (units unknown) (unknown) (unknown) (no date) (unknown) (unknown) Feeling nervou s, anxious, or on edge: 1 = Several days (units unknown) (unknown) (unknown) (no date) (unknown) (unknown) From sertralin e 25 mg PO DAILY 30 tabs 3RF (units unknown) (unknown) (unknown) (no date) (unknown) (unknown) KEY-7 (units unknown) (unknown) (unknown) (no date) (unknown) (unknown) General: No ac wales distress, sitting comfortably on bench, appears well. (units unknown) (unknown) (unknown) (no date) (unknown) (unknown) Grandfather Hypertension (units unknown) (unknown) (unknown) (no date) (unknown) (unknown) Grandmother Ty pe 2 diabetes mellitus (units unknown) (unknown) (unknown) (no date) (unknown) (unknown) H/O bilateral salpingectomy (units unknown) (unknown) (unknown) (no date) (unknown) (unknown) HPI (units unknown) (unknown) (unknown) (no date) (unknown) (unknown) Height 5 ft 2 in (un its unknown) (unknown) (unknown) (no date) (unknown) (unknown) Hypertension t ype: primary hypertension Qualified Code(s): I10 (units unknown) (unknown) (unknown) (no date) (unknown) (unknown) Hypertension (units unknown) (unknown) (unknown) (no date) (unknown) (unknown) ITCHING (units unknown) (unknown) (unknown) (no date) (unknown) (unknown) If you checked off any problems, how difficult have these problems made it for (units unknown) (unknown) (unknown) (no date) (unknown) (unknown) Intake Note: (units unknown) (unknown) (unknown) (no date) (unknown) (unknown) Intake perform ed by: Gabriela Bagley (units unknown) (unknown) (unknown) (no date) (unknown) (unknown) Intake (units unknown) (unknown) (unknown) (no date) (unknown) (unknown) Intake- Isreal mcfarlane Staff (units unknown) (unknown) (unknown) (no date) (unknown) (unknown) Last Menstural Cycle + Details (units unknown) (unknown) (unknown) (no date) (unknown) (unknown) Loc: [facility] (units unknown) (unknown) (unknown) (no date) (unknown) (unknown) Medical Histor y (Updated 08/04/22 @ 13:01 by Rabia Gooden MD) (units unknown) (unknown) (unknown) (no date) (unknown) (unknown) Medications (units unknown) (unknown) (unknown) (no date) (unknown) (unknown) Medications: (units unknown) (unknown) (unknown) (no date) (unknown) (unknown) Mother Age: 51 Stroke (units unknown) (unknown) (unknown) (no date) (unknown) (unknown) New (units unknown) (unknown) (unknown) (no date) (unknown) (unknown) Not being able to stop or control worryin = Several days (units unknown) (unknown) (unknown) (no date) (unknown) (unknown) Orders (units unknown) (unknown) (unknown) (no date) (unknown) (unknown) Orders: (units unknown) (unknown) (unknown) (no date) (unknown) (unknown) Other Menstrua l Period: Other (units unknown) (unknown) (unknown) (no date) (unknown) (unknown) Over the last 2 weeks, how often have you been bothered by any of the following (units unknown) (unknown) (unknown) (no date) (unknown) (unknown) Oxygen Deliver y Method room air (units unknown) (unknown) (unknown) (no date) (unknown) (unknown) PFSH (units unknown) (unknown) (unknown) (no date) (unknown) (unknown) PHQ-9 (units unknown) (unknown) (unknown) (no date) (unknown) (unknown) PUPP (pruritic urticarial papules and plaques of ) (units unknown) (unknown) (unknown) (no date) (unknown) (unknown) Patient: Ga Hagan MR#: [id number] (units unknown) (unknown) (unknown) (no date) (unknown) (unknown) Plantar fascii tis (-2016) (units unknown) (unknown) (unknown) (no date) (unknown) (unknown) Position Sitti ng Sitting (units unknown) (unknown) (unknown) (no date) (unknown) (unknown) Psoriasis (units unknown) (unknown) (unknown) (no date) (unknown) (unknown) Pulse 62 (units unknown) (unknown) (unknown) (no date) (unknown) (unknown) Pulse Oximetry (%) 98 (units unknown) (unknown) (unknown) (no date) (unknown) (unknown) Pulse Source Pulmonary Artery (units unknown) (unknown) (unknown) (no date) (unknown) (unknown) Qualifiers: (units unknown) (unknown) (unknown) (no date) (unknown) (unknown) Quality Reporting (u nits unknown) (unknown) (unknown) (no date) (unknown) (unknown) Questionnaires (unit s unknown) (unknown) (unknown) (no date) (unknown) (unknown) RASH AND ITCHING (un its unknown) (unknown) (unknown) (no date) (unknown) (unknown) RASH (units unknown) (unknown) (unknown) (no date) (unknown) (unknown) Rash (units unknown) (unknown) (unknown) (no date) (unknown) (unknown) Reason For Visit (un its unknown) (unknown) (unknown) (no date) (unknown) (unknown) Refilled (units unknown) (unknown) (unknown) (no date) (unknown) (unknown) Respiratory: C lear to auscultation bilaterally. (units unknown) (unknown) (unknown) (no date) (unknown) (unknown) Safety (units unknown) (unknown) (unknown) (no date) (unknown) (unknown) Signed By: <Electronically signed by Rabia Gooden MD> (units unknown) (unknown) (unknown) (no date) (unknown) (unknown) Signed (units unknown) (unknown) (unknown) (no date) (unknown) (unknown) Smoking Status : Never smoker (units unknown) (unknown) (unknown) (no date) (unknown) (unknown) Social History (unit s unknown) (unknown) (unknown) (no date) (unknown) (unknown) Source: [place] ped by Drs. Clarke Fowler, Russell Diggs (units unknown) (unknown) (unknown) (no date) (unknown) (unknown) Status post appendectomy (-1993) (units unknown) (unknown) (unknown) (no date) (unknown) (unknown) Status post delivery (01/06/11) (units unknown) (unknown) (unknown) (no date) (unknown) (unknown) Status post delivery (units unknown) (unknown) (unknown) (no date) (unknown) (unknown) Sulfa (Sulfona mide Antibiotics) Allergy (Mild, Verified 10/28/22 11:40) (units unknown) (unknown) (unknown) (no date) (unknown) (unknown) Surgical Histo ry (Updated 09/11/22 @ 09:01 by Rabia Gooden MD) (units unknown) (unknown) (unknown) (no date) (unknown) (unknown) The patient fe els that she is tired all the time despite getting relatively (units unknown) (unknown) (unknown) (no date) (unknown) (unknown) The patient bhatia s not noticed a significant improvement in her mood since starting (units unknown) (unknown) (unknown) (no date) (unknown) (unknown) The patient is here to follow up on her hypertension. She reports that her blood (units unknown) (unknown) (unknown) (no date) (unknown) (unknown) This note may have been all or partially generated using voice recognition (units unknown) (unknown) (unknown) (no date) (unknown) (unknown) To sertraline 50 mg PO DAILY 30 tabs 3RF (units unknown) (unknown) (unknown) (no date) (unknown) (unknown) Tobacco + Subs tance Use (units unknown) (unknown) (unknown) (no date) (unknown) (unknown) Tobacco Status (unit s unknown) (unknown) (unknown) (no date) (unknown) (unknown) Total KEY-7 sc ore (0-4 normal; 5-9 mild; 10-14 moderate; 15-21 severe): 9 (units unknown) (unknown) (unknown) (no date) (unknown) (unknown) Total score: 9 (unit s unknown) (unknown) (unknown) (no date) (unknown) (unknown) Trouble relaxi n = Several days (units unknown) (unknown) (unknown) (no date) (unknown) (unknown) Type(s) of exercise: none (units unknown) (unknown) (unknown) (no date) (unknown) (unknown) Visit Reasons: 6 WK FU (units unknown) (unknown) (unknown) (no date) (unknown) (unknown) Vitals (units unknown) (unknown) (unknown) (no date) (unknown) (unknown) Weight 195 lb (units unknown) (unknown) (unknown) (no date) (unknown) (unknown) Worrying too m uch about different things: 1 = Several days (units unknown) (unknown) (unknown) (no date) (unknown) (unknown) [Rx Confirmed 10/28/22] (units unknown) (unknown) (unknown) (no date) (unknown) (unknown) adequate sleep . She requests that we check a blood count to ensure she is not (units unknown) (unknown) (unknown) (no date) (unknown) (unknown) alcohol intake : former (units unknown) (unknown) (unknown) (no date) (unknown) (unknown) amoxicillin Al harshad (Mild, Verified 10/28/22 11:40) (units unknown) (unknown) (unknown) (no date) (unknown) (unknown) and colleagues , with an educational rafat from [employer]. (units unknown) (unknown) (unknown) (no date) (unknown) (unknown) and your famil y down: several days (units unknown) (unknown) (unknown) (no date) (unknown) (unknown) anemic. (units unknown) (unknown) (unknown) (no date) (unknown) (unknown) azithromycin Allergy (Mild, Verified 10/28/22 11:40) (units unknown) (unknown) (unknown) (no date) (unknown) (unknown) breath. She st ates her swelling is stable. She does sometimes see spots in her (units unknown) (unknown) (unknown) (no date) (unknown) (unknown) caffeine: Yes (units unknown) (unknown) (unknown) (no date) (unknown) (unknown) carbon monox detector in home: Yes (units unknown) (unknown) (unknown) (no date) (unknown) (unknown) chlorhexidine Adverse Reaction (Intermediate, Verified 10/28/22 11:40) (units unknown) (unknown) (unknown) (no date) (unknown) (unknown) clobetasol 0.0 5 % topical ointment 1 applic topical BID #45 grams 07/01/22 [Rx (units unknown) (unknown) (unknown) (no date) (unknown) (unknown) current occupational exposures/hazards: No (units unknown) (unknown) (unknown) (no date) (unknown) (unknown) daily servings fruits/ve-1 (units unknown) (unknown) (unknown) (no date) (unknown) (unknown) days (units unknown) (unknown) (unknown) (no date) (unknown) (unknown) do you feel sa fe at home: Yes (units unknown) (unknown) (unknown) (no date) (unknown) (unknown) during the pas t year weight has: remained stable (units unknown) (unknown) (unknown) (no date) (unknown) (unknown) education bren l: other (units unknown) (unknown) (unknown) (no date) (unknown) (unknown) fire extinguis her in home: Yes (units unknown) (unknown) (unknown) (no date) (unknown) (unknown) firearms in ho me: No (units unknown) (unknown) (unknown) (no date) (unknown) (unknown) have been in t he 160s/100s to 110s. She denies any chest pain or shortness of (units unknown) (unknown) (unknown) (no date) (unknown) (unknown) have occurred. If there are any questions, please contact the Medical Records (units unknown) (unknown) (unknown) (no date) (unknown) (unknown) household memb ers: significant other and children (units unknown) (unknown) (unknown) (no date) (unknown) (unknown) housing: apartment ( units unknown) (unknown) (unknown) (no date) (unknown) (unknown) is snapping at everyone. She is not crying all that often, but states that she (units unknown) (unknown) (unknown) (no date) (unknown) (unknown) is very boyce and irritable. She denies any current SI/HI. (units unknown) (unknown) (unknown) (no date) (unknown) (unknown) labetalol (units unknown) (unknown) (unknown) (no date) (unknown) (unknown) latex Adverse Reaction (Mild, Verified 10/28/22 11:40) (units unknown) (unknown) (unknown) (no date) (unknown) (unknown) lisinopril 40 mg PO DAILY 30 tabs 0RF (units unknown) (unknown) (unknown) (no date) (unknown) (unknown) lisinopril 40 mg tablet 40 mg PO DAILY #30 tabs 10/28/22 [Rx Confirmed 10/28/22] (units unknown) (unknown) (unknown) (no date) (unknown) (unknown) lives independently: Yes (units unknown) (unknown) (unknown) (no date) (unknown) (unknown) marital status : unmarried,living together (units unknown) (unknown) (unknown) (no date) (unknown) (unknown) may occur. Occasional wrong-word or 'sound-alike' substitutions may have (units unknown) (unknown) (unknown) (no date) (unknown) (unknown) medications pr ior to that time. (units unknown) (unknown) (unknown) (no date) (unknown) (unknown) mg daily and f ollow up as above. (units unknown) (unknown) (unknown) (no date) (unknown) (unknown) more than usua l: several days (units unknown) (unknown) (unknown) (no date) (unknown) (unknown) nifedipine 30 mg tablet,extended release 24 hr 30 mg PO DAILY #30 tabs 10/28/22 (units unknown) (unknown) (unknown) (no date) (unknown) (unknown) nifedipine ER 30 mg PO DAILY 30 tabs 0RF (units unknown) (unknown) (unknown) (no date) (unknown) (unknown) number of chil dren: 2 (units unknown) (unknown) (unknown) (no date) (unknown) (unknown) occupational status: employed (units unknown) (unknown) (unknown) (no date) (unknown) (unknown) occurred due t o the inherent limitations of voice recognition software. Please (units unknown) (unknown) (unknown) (no date) (unknown) (unknown) opposite - feng ng so fidgety or restless that you have been moving around a lot (units unknown) (unknown) (unknown) (no date) (unknown) (unknown) people?: not difficult at all (units unknown) (unknown) (unknown) (no date) (unknown) (unknown) pets and anima ls: Yes (1 cat (pt is not managing litter box)) (units unknown) (unknown) (unknown) (no date) (unknown) (unknown) point, however , no negative side effects. We will trial increasing dosing to 50 (units unknown) (unknown) (unknown) (no date) (unknown) (unknown) prenat.vits,ca l,min -iron-folic 1 tab PO DAILY 01/27/22 [History Confirmed (units unknown) (unknown) (unknown) (no date) (unknown) (unknown) pressure when that occurs. (units unknown) (unknown) (unknown) (no date) (unknown) (unknown) pressures at h ome have been quite elevated since stopping the nifedipine. They (units unknown) (unknown) (unknown) (no date) (unknown) (unknown) problems? (units unknown) (unknown) (unknown) (no date) (unknown) (unknown) read the note carefully and recognize, using context, where these substitutions (units unknown) (unknown) (unknown) (no date) (unknown) (unknown) seatbelt use: always (units unknown) (unknown) (unknown) (no date) (unknown) (unknown) second hand exposure: No (units unknown) (unknown) (unknown) (no date) (unknown) (unknown) sertraline 50 mg tablet 50 mg PO DAILY #30 tabs 10/28/22 [Rx Confirmed 10/28/22] (units unknown) (unknown) (unknown) (no date) (unknown) (unknown) software. Alth ough every effort is made to edit content, right of way man errors (units unknown) (unknown) (unknown) (no date) (unknown) (unknown) special fly needs: No (units unknown) (unknown) (unknown) (no date) (unknown) (unknown) substance use type: marijuana (units unknown) (unknown) (unknown) (no date) (unknown) (unknown) television: no t at all (units unknown) (unknown) (unknown) (no date) (unknown) (unknown) the sertraline , however, denies any side effects. She continues to feel like she (units unknown) (unknown) (unknown) (no date) (unknown) (unknown) time. We will transition from labetalol to lisinopril 40 mg daily, in addition (units unknown) (unknown) (unknown) (no date) (unknown) (unknown) to having the patient restart her carvedilol. We will have her follow up in 3 (units unknown) (unknown) (unknown) (no date) (unknown) (unknown) vision, but th is is usually around bedtime. She does not always check her blood (units unknown) (unknown) (unknown) (no date) (unknown) (unknown) water heater t emp set < 120 deg: Yes (Will check and adjust if needed) (units unknown) (unknown) (unknown) (no date) (unknown) (unknown) way: not at all (uni ts unknown) (unknown) (unknown) (no date) (unknown) (unknown) weeks with her blood pressure log to ensure improvement. She will let us know (units unknown) (unknown) (unknown) (no date) (unknown) (unknown) well-balanced diet: about half the time (units unknown) (unknown) (unknown) (no date) (unknown) (unknown) within a week if no improvement in her blood pressure, however, and may adjust (units unknown) (unknown) (unknown) (no date) (unknown) (unknown) working smoke detector in home: Yes (units unknown) (unknown) (unknown) (no date) (unknown) (unknown) you to do your work, take care of things at home, or get along with other (units unknown) (unknown) Result panel 9 (unknown) (no date) (unknown) (unknown) (no value) (units unknown) (unknown) (unknown) (no date) (unknown) (unknown) [id number] (units unknown) (unknown) (unknown) (no date) (unknown) (unknown) 11/18/22 (units unknown) (unknown) (unknown) (no date) (unknown) (unknown) 11/18/22] (units unknown) (unknown) (unknown) (no date) (unknown) (unknown) 14:45 (units unknown) (unknown) (unknown) (no date) (unknown) (unknown) 32 yo female h ere for BP ck (units unknown) (unknown) (unknown) (no date) (unknown) (unknown) Age/Sex: 32 / F Date of Service: (units unknown) (unknown) (unknown) (no date) (unknown) (unknown) Allergies (units unknown) (unknown) (unknown) (no date) (unknown) (unknown) [facility] (units unknown) (unknown) (unknown) (no date) (unknown) (unknown) BHAVYA Cotter [id number] (units unknown) (unknown) (unknown) (no date) (unknown) (unknown) Attending Dr: Rabia Gooden MD (units unknown) (unknown) (unknown) (no date) (unknown) (unknown) BMI 35.4 (units unknown) (unknown) (unknown) (no date) (unknown) (unknown) BP 122/82 (units unknown) (unknown) (unknown) (no date) (unknown) (unknown) Blister (units unknown) (unknown) (unknown) (no date) (unknown) (unknown) Blood Pressure Location Rt brachial (units unknown) (unknown) (unknown) (no date) (unknown) (unknown) Chronic cough (-2000) (units unknown) (unknown) (unknown) (no date) (unknown) (unknown) Confirmed 11/18/22] (units unknown) (unknown) (unknown) (no date) (unknown) (unknown) : 0 Acct:[id number] (units unknown) (unknown) (unknown) (no date) (unknown) (unknown) Depression (units unknown) (unknown) (unknown) (no date) (unknown) (unknown) Dept at . (units unknown) (unknown) (unknown) (no date) (unknown) (unknown) Diet and Exercise (u nits unknown) (unknown) (unknown) (no date) (unknown) (unknown) Documented By: Rabia Gooden MD 11/18/22 1444 (units unknown) (unknown) (unknown) (no date) (unknown) (unknown) Draft (units unknown) (unknown) (unknown) (no date) (unknown) (unknown) Family History (units unknown) (unknown) (unknown) (no date) (unknown) (unknown) Family Practic e Office Visit (units unknown) (unknown) (unknown) (no date) (unknown) (unknown) Grandfather Hypertension (units unknown) (unknown) (unknown) (no date) (unknown) (unknown) Grandmother Ty pe 2 diabetes mellitus (units unknown) (unknown) (unknown) (no date) (unknown) (unknown) H/O bilateral salpingectomy (units unknown) (unknown) (unknown) (no date) (unknown) (unknown) Height 5 ft 2 in (un its unknown) (unknown) (unknown) (no date) (unknown) (unknown) Hypertension (units unknown) (unknown) (unknown) (no date) (unknown) (unknown) ITCHING (units unknown) (unknown) (unknown) (no date) (unknown) (unknown) Intake Note: (units unknown) (unknown) (unknown) (no date) (unknown) (unknown) Intake perform ed by: Gabriela Bagley (units unknown) (unknown) (unknown) (no date) (unknown) (unknown) Intake (units unknown) (unknown) (unknown) (no date) (unknown) (unknown) Intake- Isreal al Staff (units unknown) (unknown) (unknown) (no date) (unknown) (unknown) Last Menstural Cycle + Details (units unknown) (unknown) (unknown) (no date) (unknown) (unknown) Loc: [facility] (units unknown) (unknown) (unknown) (no date) (unknown) (unknown) Medical Histor y (Updated 08/04/22 @ 13:01 by Rabia Gooden MD) (units unknown) (unknown) (unknown) (no date) (unknown) (unknown) Medications (units unknown) (unknown) (unknown) (no date) (unknown) (unknown) Mother Age: 51 Stroke (units unknown) (unknown) (unknown) (no date) (unknown) (unknown) Other Menstrua l Period: Other (units unknown) (unknown) (unknown) (no date) (unknown) (unknown) Oxygen Deliver y Method room air (units unknown) (unknown) (unknown) (no date) (unknown) (unknown) PFSH (units unknown) (unknown) (unknown) (no date) (unknown) (unknown) PUPP (pruritic urticarial papules and plaques of ) (units unknown) (unknown) (unknown) (no date) (unknown) (unknown) Patient: Ga Hagan MR#: [id number] (units unknown) (unknown) (unknown) (no date) (unknown) (unknown) Plantar fascii tis (-2015) (units unknown) (unknown) (unknown) (no date) (unknown) (unknown) Position Sitting (un its unknown) (unknown) (unknown) (no date) (unknown) (unknown) Psoriasis (units unknown) (unknown) (unknown) (no date) (unknown) (unknown) Pulse 97 H (units unknown) (unknown) (unknown) (no date) (unknown) (unknown) Pulse Oximetry (%) 99 (units unknown) (unknown) (unknown) (no date) (unknown) (unknown) Pulse Source Monitor (units unknown) (unknown) (unknown) (no date) (unknown) (unknown) RASH AND ITCHING (un its unknown) (unknown) (unknown) (no date) (unknown) (unknown) RASH (units unknown) (unknown) (unknown) (no date) (unknown) (unknown) Rash (units unknown) (unknown) (unknown) (no date) (unknown) (unknown) Reason For Visit (un its unknown) (unknown) (unknown) (no date) (unknown) (unknown) Safety (units unknown) (unknown) (unknown) (no date) (unknown) (unknown) Signed By: (units unknown) (unknown) (unknown) (no date) (unknown) (unknown) Smoking Status : Never smoker (units unknown) (unknown) (unknown) (no date) (unknown) (unknown) Social History (unit s unknown) (unknown) (unknown) (no date) (unknown) (unknown) Status post appendectomy (-1993) (units unknown) (unknown) (unknown) (no date) (unknown) (unknown) Status post delivery (01/06/11) (units unknown) (unknown) (unknown) (no date) (unknown) (unknown) Status post delivery (units unknown) (unknown) (unknown) (no date) (unknown) (unknown) Sulfa (Sulfona mide Antibiotics) Allergy (Mild, Verified 11/18/22 14:45) (units unknown) (unknown) (unknown) (no date) (unknown) (unknown) Surgical Histo ry (Updated 09/11/22 @ 09:01 by Rabia Gooden MD) (units unknown) (unknown) (unknown) (no date) (unknown) (unknown) This note may have been all or partially generated using voice recognition (units unknown) (unknown) (unknown) (no date) (unknown) (unknown) Tobacco + Subs tance Use (units unknown) (unknown) (unknown) (no date) (unknown) (unknown) Tobacco Status (unit s unknown) (unknown) (unknown) (no date) (unknown) (unknown) Type(s) of exercise: none (units unknown) (unknown) (unknown) (no date) (unknown) (unknown) Visit Reasons: BP ck PP (units unknown) (unknown) (unknown) (no date) (unknown) (unknown) Vitals (units unknown) (unknown) (unknown) (no date) (unknown) (unknown) Weight 194 lb (units unknown) (unknown) (unknown) (no date) (unknown) (unknown) [Rx Confirmed 11/18/22] (units unknown) (unknown) (unknown) (no date) (unknown) (unknown) alcohol intake : former (units unknown) (unknown) (unknown) (no date) (unknown) (unknown) amoxicillin Al lergy (Mild, Verified 11/18/22 14:45) (units unknown) (unknown) (unknown) (no date) (unknown) (unknown) azithromycin Allergy (Mild, Verified 11/18/22 14:45) (units unknown) (unknown) (unknown) (no date) (unknown) (unknown) caffeine: Yes (units unknown) (unknown) (unknown) (no date) (unknown) (unknown) carbon monox detector in home: Yes (units unknown) (unknown) (unknown) (no date) (unknown) (unknown) chlorhexidine Adverse Reaction (Intermediate, Verified 11/18/22 14:45) (units unknown) (unknown) (unknown) (no date) (unknown) (unknown) clobetasol 0.0 5 % topical ointment 1 applic topical BID #45 grams 07/01/22 [Rx (units unknown) (unknown) (unknown) (no date) (unknown) (unknown) current occupational exposures/hazards: No (units unknown) (unknown) (unknown) (no date) (unknown) (unknown) daily servings fruits/ve-1 (units unknown) (unknown) (unknown) (no date) (unknown) (unknown) do you feel sa fe at home: Yes (units unknown) (unknown) (unknown) (no date) (unknown) (unknown) during the pas t year weight has: remained stable (units unknown) (unknown) (unknown) (no date) (unknown) (unknown) education bren l: other (units unknown) (unknown) (unknown) (no date) (unknown) (unknown) fire extinguis her in home: Yes (units unknown) (unknown) (unknown) (no date) (unknown) (unknown) firearms in ho me: No (units unknown) (unknown) (unknown) (no date) (unknown) (unknown) have occurred. If there are any questions, please contact the Medical Records (units unknown) (unknown) (unknown) (no date) (unknown) (unknown) household memb ers: significant other and children (units unknown) (unknown) (unknown) (no date) (unknown) (unknown) housing: apartment ( units unknown) (unknown) (unknown) (no date) (unknown) (unknown) latex Adverse Reaction (Mild, Verified 11/18/22 14:45) (units unknown) (unknown) (unknown) (no date) (unknown) (unknown) lisinopril 40 mg tablet 40 mg PO DAILY #30 tabs 10/28/22 [Rx Confirmed 11/18/22] (units unknown) (unknown) (unknown) (no date) (unknown) (unknown) lives independently: Yes (units unknown) (unknown) (unknown) (no date) (unknown) (unknown) marital status : unmarried,living together (units unknown) (unknown) (unknown) (no date) (unknown) (unknown) may occur. Occasional wrong-word or 'sound-alike' substitutions may have (units unknown) (unknown) (unknown) (no date) (unknown) (unknown) nifedipine 30 mg tablet,extended release 24 hr 30 mg PO DAILY #30 tabs 10/28/22 (units unknown) (unknown) (unknown) (no date) (unknown) (unknown) number of chil dren: 2 (units unknown) (unknown) (unknown) (no date) (unknown) (unknown) occupational status: employed (units unknown) (unknown) (unknown) (no date) (unknown) (unknown) occurred due t o the inherent limitations of voice recognition software. Please (units unknown) (unknown) (unknown) (no date) (unknown) (unknown) pets and anima ls: Yes (1 cat (pt is not managing litter box)) (units unknown) (unknown) (unknown) (no date) (unknown) (unknown) prenat.vits,ca l,min -iron-folic 1 tab PO DAILY 01/27/22 [History Confirmed (units unknown) (unknown) (unknown) (no date) (unknown) (unknown) read the note carefully and recognize, using context, where these substitutions (units unknown) (unknown) (unknown) (no date) (unknown) (unknown) seatbelt use: always (units unknown) (unknown) (unknown) (no date) (unknown) (unknown) second hand exposure: No (units unknown) (unknown) (unknown) (no date) (unknown) (unknown) sertraline 50 mg tablet 50 mg PO DAILY #30 tabs 10/28/22 [Rx Confirmed 11/18/22] (units unknown) (unknown) (unknown) (no date) (unknown) (unknown) software. Alth ough every effort is made to edit content, right of way man errors (units unknown) (unknown) (unknown) (no date) (unknown) (unknown) special fly needs: No (units unknown) (unknown) (unknown) (no date) (unknown) (unknown) substance use type: marijuana (units unknown) (unknown) (unknown) (no date) (unknown) (unknown) water heater t emp set < 120 deg: Yes (Will check and adjust if needed) (units unknown) (unknown) (unknown) (no date) (unknown) (unknown) well-balanced diet: about half the time (units unknown) (unknown) (unknown) (no date) (unknown) (unknown) working smoke detector in home: Yes (units unknown) (unknown) Result panel 10 (unknown) (no date) (unknown) (unknown) (no value) (units unknown) (unknown) (unknown) (no date) (unknown) (unknown) [id number] (units unknown) (unknown) (unknown) (no date) (unknown) (unknown) 11/18/22 (units unknown) (unknown) (unknown) (no date) (unknown) (unknown) 11/18/22] (units unknown) (unknown) (unknown) (no date) (unknown) (unknown) 14:45 (units unknown) (unknown) (unknown) (no date) (unknown) (unknown) 32 yo female h ere for BP ck (units unknown) (unknown) (unknown) (no date) (unknown) (unknown) Age/Sex: 32 / F Date of Service: (units unknown) (unknown) (unknown) (no date) (unknown) (unknown) Allergies (units unknown) (unknown) (unknown) (no date) (unknown) (unknown) [facility] (units unknown) (unknown) (unknown) (no date) (unknown) (unknown) BHAVYA Cotter [id number] (units unknown) (unknown) (unknown) (no date) (unknown) (unknown) Attending Dr: Rabia Gooden MD (units unknown) (unknown) (unknown) (no date) (unknown) (unknown) BMI 35.4 (units unknown) (unknown) (unknown) (no date) (unknown) (unknown) BP 122/82 (units unknown) (unknown) (unknown) (no date) (unknown) (unknown) Blister (units unknown) (unknown) (unknown) (no date) (unknown) (unknown) Blood Pressure Location Rt brachial (units unknown) (unknown) (unknown) (no date) (unknown) (unknown) Chronic cough (-2000) (units unknown) (unknown) (unknown) (no date) (unknown) (unknown) Confirmed 11/18/22] (units unknown) (unknown) (unknown) (no date) (unknown) (unknown) : 0 Acct:[id number] (units unknown) (unknown) (unknown) (no date) (unknown) (unknown) Depression (units unknown) (unknown) (unknown) (no date) (unknown) (unknown) Dept at . (units unknown) (unknown) (unknown) (no date) (unknown) (unknown) Diet and Exercise (u nits unknown) (unknown) (unknown) (no date) (unknown) (unknown) Documented By: Rabia Gooden MD 11/18/22 1444 (units unknown) (unknown) (unknown) (no date) (unknown) (unknown) Draft (units unknown) (unknown) (unknown) (no date) (unknown) (unknown) Family History (units unknown) (unknown) (unknown) (no date) (unknown) (unknown) Family Practic e Office Visit (units unknown) (unknown) (unknown) (no date) (unknown) (unknown) Grandfather Hypertension (units unknown) (unknown) (unknown) (no date) (unknown) (unknown) Grandmother Ty pe 2 diabetes mellitus (units unknown) (unknown) (unknown) (no date) (unknown) (unknown) H/O bilateral salpingectomy (units unknown) (unknown) (unknown) (no date) (unknown) (unknown) Height 5 ft 2 in (un its unknown) (unknown) (unknown) (no date) (unknown) (unknown) Hypertension (units unknown) (unknown) (unknown) (no date) (unknown) (unknown) ITCHING (units unknown) (unknown) (unknown) (no date) (unknown) (unknown) Intake Note: (units unknown) (unknown) (unknown) (no date) (unknown) (unknown) Intake perform ed by: Gabriela Bagley (units unknown) (unknown) (unknown) (no date) (unknown) (unknown) Intake (units unknown) (unknown) (unknown) (no date) (unknown) (unknown) Intake- Isreal mcfarlane Staff (units unknown) (unknown) (unknown) (no date) (unknown) (unknown) Last Menstural Cycle + Details (units unknown) (unknown) (unknown) (no date) (unknown) (unknown) Loc: [facility] (units unknown) (unknown) (unknown) (no date) (unknown) (unknown) Medical Histor y (Updated 08/04/22 @ 13:01 by Rabia Gooden MD) (units unknown) (unknown) (unknown) (no date) (unknown) (unknown) Medications (units unknown) (unknown) (unknown) (no date) (unknown) (unknown) Mother Age: 51 Stroke (units unknown) (unknown) (unknown) (no date) (unknown) (unknown) Other Menstrua l Period: Other (units unknown) (unknown) (unknown) (no date) (unknown) (unknown) Oxygen Deliver y Method room air (units unknown) (unknown) (unknown) (no date) (unknown) (unknown) PFSH (units unknown) (unknown) (unknown) (no date) (unknown) (unknown) PUPP (pruritic urticarial papules and plaques of ) (units unknown) (unknown) (unknown) (no date) (unknown) (unknown) Patient: Ga Hagan MR#: [id number] (units unknown) (unknown) (unknown) (no date) (unknown) (unknown) Plantar fascii tis (-2015) (units unknown) (unknown) (unknown) (no date) (unknown) (unknown) Position Sitting (un its unknown) (unknown) (unknown) (no date) (unknown) (unknown) Psoriasis (units unknown) (unknown) (unknown) (no date) (unknown) (unknown) Pulse 97 H (units unknown) (unknown) (unknown) (no date) (unknown) (unknown) Pulse Oximetry (%) 99 (units unknown) (unknown) (unknown) (no date) (unknown) (unknown) Pulse Source Monitor (units unknown) (unknown) (unknown) (no date) (unknown) (unknown) RASH AND ITCHING (un its unknown) (unknown) (unknown) (no date) (unknown) (unknown) RASH (units unknown) (unknown) (unknown) (no date) (unknown) (unknown) Rash (units unknown) (unknown) (unknown) (no date) (unknown) (unknown) Reason For Visit (un its unknown) (unknown) (unknown) (no date) (unknown) (unknown) Safety (units unknown) (unknown) (unknown) (no date) (unknown) (unknown) Signed By: (units unknown) (unknown) (unknown) (no date) (unknown) (unknown) Smoking Status : Never smoker (units unknown) (unknown) (unknown) (no date) (unknown) (unknown) Social History (unit s unknown) (unknown) (unknown) (no date) (unknown) (unknown) Status post appendectomy (-1993) (units unknown) (unknown) (unknown) (no date) (unknown) (unknown) Status post delivery (01/06/11) (units unknown) (unknown) (unknown) (no date) (unknown) (unknown) Status post delivery (units unknown) (unknown) (unknown) (no date) (unknown) (unknown) Sulfa (Sulfona mide Antibiotics) Allergy (Mild, Verified 11/18/22 14:45) (units unknown) (unknown) (unknown) (no date) (unknown) (unknown) Surgical Histo ry (Updated 09/11/22 @ 09:01 by Rabia Gooden MD) (units unknown) (unknown) (unknown) (no date) (unknown) (unknown) This note may have been all or partially generated using voice recognition (units unknown) (unknown) (unknown) (no date) (unknown) (unknown) Tobacco + Subs tance Use (units unknown) (unknown) (unknown) (no date) (unknown) (unknown) Tobacco Status (unit s unknown) (unknown) (unknown) (no date) (unknown) (unknown) Type(s) of exercise: none (units unknown) (unknown) (unknown) (no date) (unknown) (unknown) Visit Reasons: BP ck PP (units unknown) (unknown) (unknown) (no date) (unknown) (unknown) Vitals (units unknown) (unknown) (unknown) (no date) (unknown) (unknown) Weight 194 lb (units unknown) (unknown) (unknown) (no date) (unknown) (unknown) [Rx Confirmed 11/18/22] (units unknown) (unknown) (unknown) (no date) (unknown) (unknown) alcohol intake : former (units unknown) (unknown) (unknown) (no date) (unknown) (unknown) amoxicillin Al lergy (Mild, Verified 11/18/22 14:45) (units unknown) (unknown) (unknown) (no date) (unknown) (unknown) azithromycin Allergy (Mild, Verified 11/18/22 14:45) (units unknown) (unknown) (unknown) (no date) (unknown) (unknown) caffeine: Yes (units unknown) (unknown) (unknown) (no date) (unknown) (unknown) carbon monox detector in home: Yes (units unknown) (unknown) (unknown) (no date) (unknown) (unknown) chlorhexidine Adverse Reaction (Intermediate, Verified 11/18/22 14:45) (units unknown) (unknown) (unknown) (no date) (unknown) (unknown) clobetasol 0.0 5 % topical ointment 1 applic topical BID #45 grams 07/01/22 [Rx (units unknown) (unknown) (unknown) (no date) (unknown) (unknown) current occupational exposures/hazards: No (units unknown) (unknown) (unknown) (no date) (unknown) (unknown) daily servings fruits/ve-1 (units unknown) (unknown) (unknown) (no date) (unknown) (unknown) do you feel sa fe at home: Yes (units unknown) (unknown) (unknown) (no date) (unknown) (unknown) during the pas t year weight has: remained stable (units unknown) (unknown) (unknown) (no date) (unknown) (unknown) education levterra l: other (units unknown) (unknown) (unknown) (no date) (unknown) (unknown) fire extinguis her in home: Yes (units unknown) (unknown) (unknown) (no date) (unknown) (unknown) firearms in ho me: No (units unknown) (unknown) (unknown) (no date) (unknown) (unknown) have occurred. If there are any questions, please contact the Medical Records (units unknown) (unknown) (unknown) (no date) (unknown) (unknown) household memb ers: significant other and children (units unknown) (unknown) (unknown) (no date) (unknown) (unknown) housing: apartment ( units unknown) (unknown) (unknown) (no date) (unknown) (unknown) latex Adverse Reaction (Mild, Verified 11/18/22 14:45) (units unknown) (unknown) (unknown) (no date) (unknown) (unknown) lisinopril 40 mg tablet 40 mg PO DAILY #30 tabs 10/28/22 [Rx Confirmed 11/18/22] (units unknown) (unknown) (unknown) (no date) (unknown) (unknown) lives independently: Yes (units unknown) (unknown) (unknown) (no date) (unknown) (unknown) marital status : unmarried,living together (units unknown) (unknown) (unknown) (no date) (unknown) (unknown) may occur. Occasional wrong-word or 'sound-alike' substitutions may have (units unknown) (unknown) (unknown) (no date) (unknown) (unknown) nifedipine 30 mg tablet,extended release 24 hr 30 mg PO DAILY #30 tabs 10/28/22 (units unknown) (unknown) (unknown) (no date) (unknown) (unknown) number of chil dren: 2 (units unknown) (unknown) (unknown) (no date) (unknown) (unknown) occupational status: employed (units unknown) (unknown) (unknown) (no date) (unknown) (unknown) occurred due t o the inherent limitations of voice recognition software. Please (units unknown) (unknown) (unknown) (no date) (unknown) (unknown) pets and anima ls: Yes (1 cat (pt is not managing litter box)) (units unknown) (unknown) (unknown) (no date) (unknown) (unknown) prenat.vits,ca l,min -iron-folic 1 tab PO DAILY 01/27/22 [History Confirmed (units unknown) (unknown) (unknown) (no date) (unknown) (unknown) read the note carefully and recognize, using context, where these substitutions (units unknown) (unknown) (unknown) (no date) (unknown) (unknown) seatbelt use: always (units unknown) (unknown) (unknown) (no date) (unknown) (unknown) second hand exposure: No (units unknown) (unknown) (unknown) (no date) (unknown) (unknown) sertraline 50 mg tablet 50 mg PO DAILY #30 tabs 10/28/22 [Rx Confirmed 11/18/22] (units unknown) (unknown) (unknown) (no date) (unknown) (unknown) software. Alth ough every effort is made to edit content, right of way man errors (units unknown) (unknown) (unknown) (no date) (unknown) (unknown) special fly needs: No (units unknown) (unknown) (unknown) (no date) (unknown) (unknown) substance use type: marijuana (units unknown) (unknown) (unknown) (no date) (unknown) (unknown) water heater t emp set < 120 deg: Yes (Will check and adjust if needed) (units unknown) (unknown) (unknown) (no date) (unknown) (unknown) well-balanced diet: about half the time (units unknown) (unknown) (unknown) (no date) (unknown) (unknown) working smoke detector in home: Yes (units unknown) (unknown) Result panel 11 (unknown) (no date) (unknown) (unknown) (no value) (units unknown) (unknown) (unknown) (no date) (unknown) (unknown) [id number] (units unknown) (unknown) (unknown) (no date) (unknown) (unknown) 11/18/22 (units unknown) (unknown) (unknown) (no date) (unknown) (unknown) 11/18/22] (units unknown) (unknown) (unknown) (no date) (unknown) (unknown) 14:45 (units unknown) (unknown) (unknown) (no date) (unknown) (unknown) 32 yo female h ere for BP ck (units unknown) (unknown) (unknown) (no date) (unknown) (unknown) Add'l Complaints: (u nits unknown) (unknown) (unknown) (no date) (unknown) (unknown) Age/Sex: 32 / F Date of Service: (units unknown) (unknown) (unknown) (no date) (unknown) (unknown) Allergies (units unknown) (unknown) (unknown) (no date) (unknown) (unknown) [facility] (units unknown) (unknown) (unknown) (no date) (unknown) (unknown) [place] [address] (units unknown) (unknown) (unknown) (no date) (unknown) (unknown) Attending Dr: Rabia Gooden MD (units unknown) (unknown) (unknown) (no date) (unknown) (unknown) BMI 35.4 (units unknown) (unknown) (unknown) (no date) (unknown) (unknown) BP 122/82 (units unknown) (unknown) (unknown) (no date) (unknown) (unknown) Blister (units unknown) (unknown) (unknown) (no date) (unknown) (unknown) Blood Pressure Location Rt brachial (units unknown) (unknown) (unknown) (no date) (unknown) (unknown) Cardiac:Normal rate and rhythm without murmurs, rubs, gallops. (units unknown) (unknown) (unknown) (no date) (unknown) (unknown) Chief Complain t: BP check (units unknown) (unknown) (unknown) (no date) (unknown) (unknown) Chronic cough () (units unknown) (unknown) (unknown) (no date) (unknown) (unknown) Confirmed 11/18/22] (units unknown) (unknown) (unknown) (no date) (unknown) (unknown) : 0 Acct:[id number] (units unknown) (unknown) (unknown) (no date) (unknown) (unknown) Depression (units unknown) (unknown) (unknown) (no date) (unknown) (unknown) Dept at . (units unknown) (unknown) (unknown) (no date) (unknown) (unknown) Diet and Exercise (u nits unknown) (unknown) (unknown) (no date) (unknown) (unknown) Documented By: Rabia Gooden MD 11/18/22 4544 (units unknown) (unknown) (unknown) (no date) (unknown) (unknown) Draft (units unknown) (unknown) (unknown) (no date) (unknown) (unknown) Endorses a fam eri history of hypertension. MGM and maternal aunt both have afib. (units unknown) (unknown) (unknown) (no date) (unknown) (unknown) Exam Narrative (unit s unknown) (unknown) (unknown) (no date) (unknown) (unknown) Exam Narrative: (uni ts unknown) (unknown) (unknown) (no date) (unknown) (unknown) Exam (units unknown) (unknown) (unknown) (no date) (unknown) (unknown) Family History (units unknown) (unknown) (unknown) (no date) (unknown) (unknown) Family Practic e Office Visit (units unknown) (unknown) (unknown) (no date) (unknown) (unknown) General: well appearing, alert, oriented, in no acute distress. (units unknown) (unknown) (unknown) (no date) (unknown) (unknown) Grandfather Hypertension (units unknown) (unknown) (unknown) (no date) (unknown) (unknown) Grandmother Ty pe 2 diabetes mellitus (units unknown) (unknown) (unknown) (no date) (unknown) (unknown) H/O bilateral salpingectomy (units unknown) (unknown) (unknown) (no date) (unknown) (unknown) Height 5 ft 2 in (un its unknown) (unknown) (unknown) (no date) (unknown) (unknown) Hypertension (units unknown) (unknown) (unknown) (no date) (unknown) (unknown) ITCHING (units unknown) (unknown) (unknown) (no date) (unknown) (unknown) Intake Note: (units unknown) (unknown) (unknown) (no date) (unknown) (unknown) Intake perform ed by: Gabriela Bagley (units unknown) (unknown) (unknown) (no date) (unknown) (unknown) Intake (units unknown) (unknown) (unknown) (no date) (unknown) (unknown) Intake- Isreal mcfarlane Staff (units unknown) (unknown) (unknown) (no date) (unknown) (unknown) Last Menstural Cycle + Details (units unknown) (unknown) (unknown) (no date) (unknown) (unknown) Loc: [facility] (units unknown) (unknown) (unknown) (no date) (unknown) (unknown) Lungs: CTA bilaterally. (units unknown) (unknown) (unknown) (no date) (unknown) (unknown) Ga is a 32 y/o female here for a BP check. During the third trimester of her (units unknown) (unknown) (unknown) (no date) (unknown) (unknown) Medical Histor y (Updated 08/04/22 @ 13:01 by Rabia Gooden MD) (units unknown) (unknown) (unknown) (no date) (unknown) (unknown) Medications (units unknown) (unknown) (unknown) (no date) (unknown) (unknown) Mother Age: 51 Stroke (units unknown) (unknown) (unknown) (no date) (unknown) (unknown) Note (units unknown) (unknown) (unknown) (no date) (unknown) (unknown) Note: (units unknown) (unknown) (unknown) (no date) (unknown) (unknown) Notes (units unknown) (unknown) (unknown) (no date) (unknown) (unknown) Other Menstrua l Period: Other (units unknown) (unknown) (unknown) (no date) (unknown) (unknown) Oxygen Deliver y Method room air (units unknown) (unknown) (unknown) (no date) (unknown) (unknown) PFSH (units unknown) (unknown) (unknown) (no date) (unknown) (unknown) PUPP (pruritic urticarial papules and plaques of ) (units unknown) (unknown) (unknown) (no date) (unknown) (unknown) Patient: Ga Hagan MR#: [id number] (units unknown) (unknown) (unknown) (no date) (unknown) (unknown) Plantar fascii tis (-2015) (units unknown) (unknown) (unknown) (no date) (unknown) (unknown) Position Sitting (un its unknown) (unknown) (unknown) (no date) (unknown) (unknown) Psoriasis (units unknown) (unknown) (unknown) (no date) (unknown) (unknown) Pulse 97 H (units unknown) (unknown) (unknown) (no date) (unknown) (unknown) Pulse Oximetry (%) 99 (units unknown) (unknown) (unknown) (no date) (unknown) (unknown) Pulse Source Monitor (units unknown) (unknown) (unknown) (no date) (unknown) (unknown) RASH AND ITCHING (un its unknown) (unknown) (unknown) (no date) (unknown) (unknown) RASH (units unknown) (unknown) (unknown) (no date) (unknown) (unknown) Rash (units unknown) (unknown) (unknown) (no date) (unknown) (unknown) Reason For Visit (un its unknown) (unknown) (unknown) (no date) (unknown) (unknown) Safety (units unknown) (unknown) (unknown) (no date) (unknown) (unknown) Signed By: (units unknown) (unknown) (unknown) (no date) (unknown) (unknown) Smoking Status : Never smoker (units unknown) (unknown) (unknown) (no date) (unknown) (unknown) Social History (unit s unknown) (unknown) (unknown) (no date) (unknown) (unknown) Status post appendectomy (-1993) (units unknown) (unknown) (unknown) (no date) (unknown) (unknown) Status post delivery (01/06/11) (units unknown) (unknown) (unknown) (no date) (unknown) (unknown) Status post delivery (units unknown) (unknown) (unknown) (no date) (unknown) (unknown) Sulfa (Sulfona mide Antibiotics) Allergy (Mild, Verified 11/18/22 14:45) (units unknown) (unknown) (unknown) (no date) (unknown) (unknown) Surgical Histo ry (Updated 09/11/22 @ 09:01 by Rabia Gooden MD) (units unknown) (unknown) (unknown) (no date) (unknown) (unknown) This note may have been all or partially generated using voice recognition (units unknown) (unknown) (unknown) (no date) (unknown) (unknown) Tobacco + Subs tance Use (units unknown) (unknown) (unknown) (no date) (unknown) (unknown) Tobacco Status (unit s unknown) (unknown) (unknown) (no date) (unknown) (unknown) Type(s) of exercise: none (units unknown) (unknown) (unknown) (no date) (unknown) (unknown) Visit Reasons: BP ck PP (units unknown) (unknown) (unknown) (no date) (unknown) (unknown) Vitals (units unknown) (unknown) (unknown) (no date) (unknown) (unknown) Weight 194 lb (units unknown) (unknown) (unknown) (no date) (unknown) (unknown) [Rx Confirmed 11/18/22] (units unknown) (unknown) (unknown) (no date) (unknown) (unknown) alcohol intake : former (units unknown) (unknown) (unknown) (no date) (unknown) (unknown) amoxicillin Al lergy (Mild, Verified 11/18/22 14:45) (units unknown) (unknown) (unknown) (no date) (unknown) (unknown) azithromycin Allergy (Mild, Verified 11/18/22 14:45) (units unknown) (unknown) (unknown) (no date) (unknown) (unknown) caffeine: Yes (units unknown) (unknown) (unknown) (no date) (unknown) (unknown) carbon monox detector in home: Yes (units unknown) (unknown) (unknown) (no date) (unknown) (unknown) chlorhexidine Adverse Reaction (Intermediate, Verified 11/18/22 14:45) (units unknown) (unknown) (unknown) (no date) (unknown) (unknown) clobetasol 0.0 5 % topical ointment 1 applic topical BID #45 grams 07/01/22 [Rx (units unknown) (unknown) (unknown) (no date) (unknown) (unknown) current occupational exposures/hazards: No (units unknown) (unknown) (unknown) (no date) (unknown) (unknown) daily servings fruits/ve-1 (units unknown) (unknown) (unknown) (no date) (unknown) (unknown) do you feel sa fe at home: Yes (units unknown) (unknown) (unknown) (no date) (unknown) (unknown) during the pas t year weight has: remained stable (units unknown) (unknown) (unknown) (no date) (unknown) (unknown) education leve l: other (units unknown) (unknown) (unknown) (no date) (unknown) (unknown) fire extinguis her in home: Yes (units unknown) (unknown) (unknown) (no date) (unknown) (unknown) firearms in ho me: No (units unknown) (unknown) (unknown) (no date) (unknown) (unknown) following deli very. She checks her BP at home using wrist cuff and records (units unknown) (unknown) (unknown) (no date) (unknown) (unknown) have occurred. If there are any questions, please contact the Medical Records (units unknown) (unknown) (unknown) (no date) (unknown) (unknown) household memb ers: significant other and children (units unknown) (unknown) (unknown) (no date) (unknown) (unknown) housing: apartment ( units unknown) (unknown) (unknown) (no date) (unknown) (unknown) latex Adverse Reaction (Mild, Verified 11/18/22 14:45) (units unknown) (unknown) (unknown) (no date) (unknown) (unknown) lisinopril 40 mg tablet 40 mg PO DAILY #30 tabs 10/28/22 [Rx Confirmed 11/18/22] (units unknown) (unknown) (unknown) (no date) (unknown) (unknown) lives independently: Yes (units unknown) (unknown) (unknown) (no date) (unknown) (unknown) marital status : unmarried,living together (units unknown) (unknown) (unknown) (no date) (unknown) (unknown) may occur. Occasional wrong-word or 'sound-alike' substitutions may have (units unknown) (unknown) (unknown) (no date) (unknown) (unknown) nifedipine 30 mg tablet,extended release 24 hr 30 mg PO DAILY #30 tabs 10/28/22 (units unknown) (unknown) (unknown) (no date) (unknown) (unknown) number of chil dren: 2 (units unknown) (unknown) (unknown) (no date) (unknown) (unknown) occupational status: employed (units unknown) (unknown) (unknown) (no date) (unknown) (unknown) occurred due t o the inherent limitations of voice recognition software. Please (units unknown) (unknown) (unknown) (no date) (unknown) (unknown) pets and anima ls: Yes (1 cat (pt is not managing litter box)) (units unknown) (unknown) (unknown) (no date) (unknown) (unknown) , she was found to have elevated blood pressure which persisted (units unknown) (unknown) (unknown) (no date) (unknown) (unknown) prenat.vits,ca l,min -iron-folic 1 tab PO DAILY 01/27/22 [History Confirmed (units unknown) (unknown) (unknown) (no date) (unknown) (unknown) read the note carefully and recognize, using context, where these substitutions (units unknown) (unknown) (unknown) (no date) (unknown) (unknown) seatbelt use: always (units unknown) (unknown) (unknown) (no date) (unknown) (unknown) second hand exposure: No (units unknown) (unknown) (unknown) (no date) (unknown) (unknown) sertraline 50 mg tablet 50 mg PO DAILY #30 tabs 10/28/22 [Rx Confirmed 11/18/22] (units unknown) (unknown) (unknown) (no date) (unknown) (unknown) software. Alth ough every effort is made to edit content, right of way man errors (units unknown) (unknown) (unknown) (no date) (unknown) (unknown) special fly needs: No (units unknown) (unknown) (unknown) (no date) (unknown) (unknown) substance use type: marijuana (units unknown) (unknown) (unknown) (no date) (unknown) (unknown) systolic value s in the 140s and 150s. (units unknown) (unknown) (unknown) (no date) (unknown) (unknown) water heater t emp set < 120 deg: Yes (Will check and adjust if needed) (units unknown) (unknown) (unknown) (no date) (unknown) (unknown) well-balanced diet: about half the time (units unknown) (unknown) (unknown) (no date) (unknown) (unknown) working smoke detector in home: Yes (units unknown) (unknown) Result panel 12 (unknown) (no date) (unknown) (unknown) (no value) (units unknown) (unknown) (unknown) (no date) (unknown) (unknown) [id number] (units unknown) (unknown) (unknown) (no date) (unknown) (unknown) 11/18/22 (units unknown) (unknown) (unknown) (no date) (unknown) (unknown) 11/18/22] (units unknown) (unknown) (unknown) (no date) (unknown) (unknown) 14:45 (units unknown) (unknown) (unknown) (no date) (unknown) (unknown) 32 yo female h ere for BP ck (units unknown) (unknown) (unknown) (no date) (unknown) (unknown) Add'l Complaints: (u nits unknown) (unknown) (unknown) (no date) (unknown) (unknown) Age/Sex: 32 / F Date of Service: (units unknown) (unknown) (unknown) (no date) (unknown) (unknown) Allergies (units unknown) (unknown) (unknown) (no date) (unknown) (unknown) [facility] (units unknown) (unknown) (unknown) (no date) (unknown) (unknown) [place] [id number] (units unknown) (unknown) (unknown) (no date) (unknown) (unknown) Assessment + Plan (u nits unknown) (unknown) (unknown) (no date) (unknown) (unknown) Attending Dr: Rabia Gooden MD (units unknown) (unknown) (unknown) (no date) (unknown) (unknown) BMI 35.4 (units unknown) (unknown) (unknown) (no date) (unknown) (unknown) BP 122/82 (units unknown) (unknown) (unknown) (no date) (unknown) (unknown) Blister (units unknown) (unknown) (unknown) (no date) (unknown) (unknown) Blood Pressure Location Rt brachial (units unknown) (unknown) (unknown) (no date) (unknown) (unknown) Cardiac:Normal rate and rhythm without murmurs, rubs, gallops. (units unknown) (unknown) (unknown) (no date) (unknown) (unknown) Changed (units unknown) (unknown) (unknown) (no date) (unknown) (unknown) Chief Complain t: BP check (units unknown) (unknown) (unknown) (no date) (unknown) (unknown) Chronic cough () (units unknown) (unknown) (unknown) (no date) (unknown) (unknown) Confirmed 11/18/22] (units unknown) (unknown) (unknown) (no date) (unknown) (unknown) : 0 Acct:[id number] (units unknown) (unknown) (unknown) (no date) (unknown) (unknown) Depression (units unknown) (unknown) (unknown) (no date) (unknown) (unknown) Dept at . (units unknown) (unknown) (unknown) (no date) (unknown) (unknown) Diet and Exercise (u nits unknown) (unknown) (unknown) (no date) (unknown) (unknown) Documented By: Rabia Gooden MD 11/18/22 1444 (units unknown) (unknown) (unknown) (no date) (unknown) (unknown) Draft (units unknown) (unknown) (unknown) (no date) (unknown) (unknown) Exam Narrative (unit s unknown) (unknown) (unknown) (no date) (unknown) (unknown) Exam Narrative: (uni ts unknown) (unknown) (unknown) (no date) (unknown) (unknown) Exam (units unknown) (unknown) (unknown) (no date) (unknown) (unknown) Family History (units unknown) (unknown) (unknown) (no date) (unknown) (unknown) Family Practic e Office Visit (units unknown) (unknown) (unknown) (no date) (unknown) (unknown) From nifedipin e ER 30 mg PO DAILY 30 tabs 0RF (units unknown) (unknown) (unknown) (no date) (unknown) (unknown) General: well appearing, alert, oriented, in no acute distress. (units unknown) (unknown) (unknown) (no date) (unknown) (unknown) Grandfather Hypertension (units unknown) (unknown) (unknown) (no date) (unknown) (unknown) Grandmother Ty pe 2 diabetes mellitus (units unknown) (unknown) (unknown) (no date) (unknown) (unknown) H/O bilateral salpingectomy (units unknown) (unknown) (unknown) (no date) (unknown) (unknown) Height 5 ft 2 in (un its unknown) (unknown) (unknown) (no date) (unknown) (unknown) Hypertension persists despite treatments with lisinopril and nifedipine. (units unknown) (unknown) (unknown) (no date) (unknown) (unknown) Hypertension (units unknown) (unknown) (unknown) (no date) (unknown) (unknown) ITCHING (units unknown) (unknown) (unknown) (no date) (unknown) (unknown) Intake Note: (units unknown) (unknown) (unknown) (no date) (unknown) (unknown) Intake perform ed by: Gabriela Bagley (units unknown) (unknown) (unknown) (no date) (unknown) (unknown) Intake (units unknown) (unknown) (unknown) (no date) (unknown) (unknown) Intake- Isreal mcfarlane Staff (units unknown) (unknown) (unknown) (no date) (unknown) (unknown) Last Menstural Cycle + Details (units unknown) (unknown) (unknown) (no date) (unknown) (unknown) Loc: [facility] (units unknown) (unknown) (unknown) (no date) (unknown) (unknown) Lungs: CTA bilaterally. (units unknown) (unknown) (unknown) (no date) (unknown) (unknown) Ga is a 32 y/o female here for a BP check. During the third trimester of her (units unknown) (unknown) (unknown) (no date) (unknown) (unknown) Medical Histor y (Updated 08/04/22 @ 13:01 by Rabia Gooden MD) (units unknown) (unknown) (unknown) (no date) (unknown) (unknown) Medications (units unknown) (unknown) (unknown) (no date) (unknown) (unknown) Medications: (units unknown) (unknown) (unknown) (no date) (unknown) (unknown) Mother Age: 51 Stroke (units unknown) (unknown) (unknown) (no date) (unknown) (unknown) Nifedipine graham l be increased from 30mg daily to 60mg daily. Pt will continue to (units unknown) (unknown) (unknown) (no date) (unknown) (unknown) Note (units unknown) (unknown) (unknown) (no date) (unknown) (unknown) Note: (units unknown) (unknown) (unknown) (no date) (unknown) (unknown) Notes (units unknown) (unknown) (unknown) (no date) (unknown) (unknown) Other Menstrua l Period: Other (units unknown) (unknown) (unknown) (no date) (unknown) (unknown) Oxygen Deliver y Method room air (units unknown) (unknown) (unknown) (no date) (unknown) (unknown) PFSH (units unknown) (unknown) (unknown) (no date) (unknown) (unknown) PUPP (pruritic urticarial papules and plaques of ) (units unknown) (unknown) (unknown) (no date) (unknown) (unknown) Patient: Ga Hagan MR#: [id number] (units unknown) (unknown) (unknown) (no date) (unknown) (unknown) Plan (units unknown) (unknown) (unknown) (no date) (unknown) (unknown) Plantar fascii tis (-2015) (units unknown) (unknown) (unknown) (no date) (unknown) (unknown) Position Sitting (un its unknown) (unknown) (unknown) (no date) (unknown) (unknown) Psoriasis (units unknown) (unknown) (unknown) (no date) (unknown) (unknown) Pulse 97 H (units unknown) (unknown) (unknown) (no date) (unknown) (unknown) Pulse Oximetry (%) 99 (units unknown) (unknown) (unknown) (no date) (unknown) (unknown) Pulse Source Monitor (units unknown) (unknown) (unknown) (no date) (unknown) (unknown) RASH AND ITCHING (un its unknown) (unknown) (unknown) (no date) (unknown) (unknown) RASH (units unknown) (unknown) (unknown) (no date) (unknown) (unknown) Rash (units unknown) (unknown) (unknown) (no date) (unknown) (unknown) Reason For Visit (un its unknown) (unknown) (unknown) (no date) (unknown) (unknown) Safety (units unknown) (unknown) (unknown) (no date) (unknown) (unknown) She endorses a family history of hypertension as well. MGM and maternal aunt (units unknown) (unknown) (unknown) (no date) (unknown) (unknown) Signed By: (units unknown) (unknown) (unknown) (no date) (unknown) (unknown) Smoking Status : Never smoker (units unknown) (unknown) (unknown) (no date) (unknown) (unknown) Social History (unit s unknown) (unknown) (unknown) (no date) (unknown) (unknown) Status post appendectomy (-1993) (units unknown) (unknown) (unknown) (no date) (unknown) (unknown) Status post delivery (01/06/11) (units unknown) (unknown) (unknown) (no date) (unknown) (unknown) Status post delivery (units unknown) (unknown) (unknown) (no date) (unknown) (unknown) Sulfa (Sulfona mide Antibiotics) Allergy (Mild, Verified 11/18/22 14:45) (units unknown) (unknown) (unknown) (no date) (unknown) (unknown) Surgical Histo ry (Updated 09/11/22 @ 09:01 by Rabia Gooden MD) (units unknown) (unknown) (unknown) (no date) (unknown) (unknown) This note may have been all or partially generated using voice recognition (units unknown) (unknown) (unknown) (no date) (unknown) (unknown) To nifedipine ER 60 mg PO DAILY 90 tabs 3RF (units unknown) (unknown) (unknown) (no date) (unknown) (unknown) Tobacco + Subs tance Use (units unknown) (unknown) (unknown) (no date) (unknown) (unknown) Tobacco Status (unit s unknown) (unknown) (unknown) (no date) (unknown) (unknown) Type(s) of exercise: none (units unknown) (unknown) (unknown) (no date) (unknown) (unknown) Visit Reasons: BP ck PP (units unknown) (unknown) (unknown) (no date) (unknown) (unknown) Vitals (units unknown) (unknown) (unknown) (no date) (unknown) (unknown) Weight 194 lb (units unknown) (unknown) (unknown) (no date) (unknown) (unknown) [Rx Confirmed 11/18/22] (units unknown) (unknown) (unknown) (no date) (unknown) (unknown) alcohol intake : former (units unknown) (unknown) (unknown) (no date) (unknown) (unknown) amoxicillin Al lergy (Mild, Verified 11/18/22 14:45) (units unknown) (unknown) (unknown) (no date) (unknown) (unknown) azithromycin Allergy (Mild, Verified 11/18/22 14:45) (units unknown) (unknown) (unknown) (no date) (unknown) (unknown) both have afib. (uni ts unknown) (unknown) (unknown) (no date) (unknown) (unknown) caffeine: Yes (units unknown) (unknown) (unknown) (no date) (unknown) (unknown) carbon monox detector in home: Yes (units unknown) (unknown) (unknown) (no date) (unknown) (unknown) chlorhexidine Adverse Reaction (Intermediate, Verified 11/18/22 14:45) (units unknown) (unknown) (unknown) (no date) (unknown) (unknown) clobetasol 0.0 5 % topical ointment 1 applic topical BID #45 grams 07/01/22 [Rx (units unknown) (unknown) (unknown) (no date) (unknown) (unknown) current occupational exposures/hazards: No (units unknown) (unknown) (unknown) (no date) (unknown) (unknown) daily servings fruits/ve-1 (units unknown) (unknown) (unknown) (no date) (unknown) (unknown) daily. She jean cks her BP at home using wrist cuff and regularly records systolic (units unknown) (unknown) (unknown) (no date) (unknown) (unknown) do you feel sa fe at home: Yes (units unknown) (unknown) (unknown) (no date) (unknown) (unknown) during the pas t year weight has: remained stable (units unknown) (unknown) (unknown) (no date) (unknown) (unknown) education bren l: other (units unknown) (unknown) (unknown) (no date) (unknown) (unknown) fire extinguis her in home: Yes (units unknown) (unknown) (unknown) (no date) (unknown) (unknown) firearms in ho me: No (units unknown) (unknown) (unknown) (no date) (unknown) (unknown) following deli very. She was started on lisinopril 40mg daily and nifedipine 30mg (units unknown) (unknown) (unknown) (no date) (unknown) (unknown) have occurred. If there are any questions, please contact the Medical Records (units unknown) (unknown) (unknown) (no date) (unknown) (unknown) household memb ers: significant other and children (units unknown) (unknown) (unknown) (no date) (unknown) (unknown) housing: apartment ( units unknown) (unknown) (unknown) (no date) (unknown) (unknown) latex Adverse Reaction (Mild, Verified 11/18/22 14:45) (units unknown) (unknown) (unknown) (no date) (unknown) (unknown) lisinopril 40 mg tablet 40 mg PO DAILY #30 tabs 10/28/22 [Rx Confirmed 11/18/22] (units unknown) (unknown) (unknown) (no date) (unknown) (unknown) lives independently: Yes (units unknown) (unknown) (unknown) (no date) (unknown) (unknown) marital status : unmarried,living together (units unknown) (unknown) (unknown) (no date) (unknown) (unknown) may occur. Occasional wrong-word or 'sound-alike' substitutions may have (units unknown) (unknown) (unknown) (no date) (unknown) (unknown) monitor BP at home and is in agreement with the plan. (units unknown) (unknown) (unknown) (no date) (unknown) (unknown) nifedipine 60 mg tablet,extended release 24 hr 60 mg PO DAILY #90 tabs 11/18/22 (units unknown) (unknown) (unknown) (no date) (unknown) (unknown) number of chil dren: 2 (units unknown) (unknown) (unknown) (no date) (unknown) (unknown) occupational status: employed (units unknown) (unknown) (unknown) (no date) (unknown) (unknown) occurred due t o the inherent limitations of voice recognition software. Please (units unknown) (unknown) (unknown) (no date) (unknown) (unknown) pets and anima ls: Yes (1 cat (pt is not managing litter box)) (units unknown) (unknown) (unknown) (no date) (unknown) (unknown) , she was found to have elevated blood pressure which persisted (units unknown) (unknown) (unknown) (no date) (unknown) (unknown) prenat.vits,ca l,min -iron-folic 1 tab PO DAILY 01/27/22 [History Confirmed (units unknown) (unknown) (unknown) (no date) (unknown) (unknown) read the note carefully and recognize, using context, where these substitutions (units unknown) (unknown) (unknown) (no date) (unknown) (unknown) reports no oth er changes in her health at this time. (units unknown) (unknown) (unknown) (no date) (unknown) (unknown) seatbelt use: always (units unknown) (unknown) (unknown) (no date) (unknown) (unknown) second hand exposure: No (units unknown) (unknown) (unknown) (no date) (unknown) (unknown) sertraline 50 mg tablet 50 mg PO DAILY #30 tabs 10/28/22 [Rx Confirmed 11/18/22] (units unknown) (unknown) (unknown) (no date) (unknown) (unknown) software. Alth ough every effort is made to edit content, right of way man errors (units unknown) (unknown) (unknown) (no date) (unknown) (unknown) special fly needs: No (units unknown) (unknown) (unknown) (no date) (unknown) (unknown) substance use type: marijuana (units unknown) (unknown) (unknown) (no date) (unknown) (unknown) values in the 140s and 150s. She denies shortness of breath. She feels well and (units unknown) (unknown) (unknown) (no date) (unknown) (unknown) water heater t emp set < 120 deg: Yes (Will check and adjust if needed) (units unknown) (unknown) (unknown) (no date) (unknown) (unknown) well-balanced diet: about half the time (units unknown) (unknown) (unknown) (no date) (unknown) (unknown) working smoke detector in home: Yes (units unknown) (unknown) Result panel 13 (unknown) (no date) (unknown) (unknown) (no value) (units unknown) (unknown) (unknown) (no date) (unknown) (unknown) (1) Essential hypertension: (units unknown) (unknown) (unknown) (no date) (unknown) (unknown) [id number] (units unknown) (unknown) (unknown) (no date) (unknown) (unknown) 11/18/22 1638 (units unknown) (unknown) (unknown) (no date) (unknown) (unknown) 11/18/22 (units unknown) (unknown) (unknown) (no date) (unknown) (unknown) 11/18/22] (units unknown) (unknown) (unknown) (no date) (unknown) (unknown) 14:45 (units unknown) (unknown) (unknown) (no date) (unknown) (unknown) 32 yo female h ere for BP ck (units unknown) (unknown) (unknown) (no date) (unknown) (unknown) Add'l Complaints: (u nits unknown) (unknown) (unknown) (no date) (unknown) (unknown) Age/Sex: 32 / F Date of Service: (units unknown) (unknown) (unknown) (no date) (unknown) (unknown) Allergies (units unknown) (unknown) (unknown) (no date) (unknown) (unknown) [facility] (units unknown) (unknown) (unknown) (no date) (unknown) (unknown) [place], [place] [id number] (units unknown) (unknown) (unknown) (no date) (unknown) (unknown) Assessment + Plan (u nits unknown) (unknown) (unknown) (no date) (unknown) (unknown) Attending Dr: Rabia Gooden MD (units unknown) (unknown) (unknown) (no date) (unknown) (unknown) BMI 35.4 (units unknown) (unknown) (unknown) (no date) (unknown) (unknown) BP 122/82 (units unknown) (unknown) (unknown) (no date) (unknown) (unknown) Blister (units unknown) (unknown) (unknown) (no date) (unknown) (unknown) Blood Pressure Location Rt brachial (units unknown) (unknown) (unknown) (no date) (unknown) (unknown) Cardiac:Normal rate and rhythm without murmurs, rubs, gallops. (units unknown) (unknown) (unknown) (no date) (unknown) (unknown) Changed (units unknown) (unknown) (unknown) (no date) (unknown) (unknown) Chief Complain t: BP check (units unknown) (unknown) (unknown) (no date) (unknown) (unknown) Chronic cough () (units unknown) (unknown) (unknown) (no date) (unknown) (unknown) Confirmed 11/18/22] (units unknown) (unknown) (unknown) (no date) (unknown) (unknown) : 0 Acct:[id number] (units unknown) (unknown) (unknown) (no date) (unknown) (unknown) Depression (units unknown) (unknown) (unknown) (no date) (unknown) (unknown) Dept at . (units unknown) (unknown) (unknown) (no date) (unknown) (unknown) Diet and Exercise (u nits unknown) (unknown) (unknown) (no date) (unknown) (unknown) Documented By: Rabia Gooden MD 11/18/22 1444 (units unknown) (unknown) (unknown) (no date) (unknown) (unknown) Exam Narrative (unit s unknown) (unknown) (unknown) (no date) (unknown) (unknown) Exam Narrative: (uni ts unknown) (unknown) (unknown) (no date) (unknown) (unknown) Exam (units unknown) (unknown) (unknown) (no date) (unknown) (unknown) Family History (units unknown) (unknown) (unknown) (no date) (unknown) (unknown) Family Practic e Office Visit (units unknown) (unknown) (unknown) (no date) (unknown) (unknown) From nifedipin e ER 30 mg PO DAILY 30 tabs 0RF (units unknown) (unknown) (unknown) (no date) (unknown) (unknown) General: well appearing, alert, oriented, in no acute distress. (units unknown) (unknown) (unknown) (no date) (unknown) (unknown) Grandfather Hypertension (units unknown) (unknown) (unknown) (no date) (unknown) (unknown) Grandmother Ty pe 2 diabetes mellitus (units unknown) (unknown) (unknown) (no date) (unknown) (unknown) H/O bilateral salpingectomy (units unknown) (unknown) (unknown) (no date) (unknown) (unknown) Height 5 ft 2 in (un its unknown) (unknown) (unknown) (no date) (unknown) (unknown) Hypertension persists despite treatments with lisinopril and nifedipine. (units unknown) (unknown) (unknown) (no date) (unknown) (unknown) Hypertension (units unknown) (unknown) (unknown) (no date) (unknown) (unknown) I verified the medical student?s documentation in the medical record. I (units unknown) (unknown) (unknown) (no date) (unknown) (unknown) ITCHING (units unknown) (unknown) (unknown) (no date) (unknown) (unknown) Intake Note: (units unknown) (unknown) (unknown) (no date) (unknown) (unknown) Intake perform ed by: Gabriela Bagley (units unknown) (unknown) (unknown) (no date) (unknown) (unknown) Intake (units unknown) (unknown) (unknown) (no date) (unknown) (unknown) Intake- Isreal mcfarlane Staff (units unknown) (unknown) (unknown) (no date) (unknown) (unknown) Last Menstural Cycle + Details (units unknown) (unknown) (unknown) (no date) (unknown) (unknown) Loc: [facility] (units unknown) (unknown) (unknown) (no date) (unknown) (unknown) Lungs: CTA bilaterally. (units unknown) (unknown) (unknown) (no date) (unknown) (unknown) Ga is a 32 y/o female here for a BP check. During the third trimester of her (units unknown) (unknown) (unknown) (no date) (unknown) (unknown) Medical Histor y (Updated 11/18/22 @ 16:37 by Rabia Gooden MD) (units unknown) (unknown) (unknown) (no date) (unknown) (unknown) Medications (units unknown) (unknown) (unknown) (no date) (unknown) (unknown) Medications: (units unknown) (unknown) (unknown) (no date) (unknown) (unknown) Mother Age: 51 Stroke (units unknown) (unknown) (unknown) (no date) (unknown) (unknown) Nifedipine graham l be increased from 30mg daily to 60mg daily. Pt will continue to (units unknown) (unknown) (unknown) (no date) (unknown) (unknown) Note (units unknown) (unknown) (unknown) (no date) (unknown) (unknown) Note: (units unknown) (unknown) (unknown) (no date) (unknown) (unknown) Notes (units unknown) (unknown) (unknown) (no date) (unknown) (unknown) Other Menstrua l Period: Other (units unknown) (unknown) (unknown) (no date) (unknown) (unknown) Oxygen Deliver y Method room air (units unknown) (unknown) (unknown) (no date) (unknown) (unknown) PFSH (units unknown) (unknown) (unknown) (no date) (unknown) (unknown) PUPP (pruritic urticarial papules and plaques of ) (units unknown) (unknown) (unknown) (no date) (unknown) (unknown) Patient: Ga Hagan MR#: [id number] (units unknown) (unknown) (unknown) (no date) (unknown) (unknown) Plan (units unknown) (unknown) (unknown) (no date) (unknown) (unknown) Plantar fascii tis (-2015) (units unknown) (unknown) (unknown) (no date) (unknown) (unknown) Position Sitting (un its unknown) (unknown) (unknown) (no date) (unknown) (unknown) Psoriasis (units unknown) (unknown) (unknown) (no date) (unknown) (unknown) Pulse 97 H (units unknown) (unknown) (unknown) (no date) (unknown) (unknown) Pulse Oximetry (%) 99 (units unknown) (unknown) (unknown) (no date) (unknown) (unknown) Pulse Source Monitor (units unknown) (unknown) (unknown) (no date) (unknown) (unknown) RASH AND ITCHING (un its unknown) (unknown) (unknown) (no date) (unknown) (unknown) RASH (units unknown) (unknown) (unknown) (no date) (unknown) (unknown) Rash (units unknown) (unknown) (unknown) (no date) (unknown) (unknown) Reason For Visit (un its unknown) (unknown) (unknown) (no date) (unknown) (unknown) Safety (units unknown) (unknown) (unknown) (no date) (unknown) (unknown) She endorses a family history of hypertension as well. MGM and maternal aunt (units unknown) (unknown) (unknown) (no date) (unknown) (unknown) Signed By: <Electronically signed by Rabia Gooden MD> (units unknown) (unknown) (unknown) (no date) (unknown) (unknown) Signed (units unknown) (unknown) (unknown) (no date) (unknown) (unknown) Smoking Status : Never smoker (units unknown) (unknown) (unknown) (no date) (unknown) (unknown) Social History (unit s unknown) (unknown) (unknown) (no date) (unknown) (unknown) Status post appendectomy (-1993) (units unknown) (unknown) (unknown) (no date) (unknown) (unknown) Status post delivery (01/06/11) (units unknown) (unknown) (unknown) (no date) (unknown) (unknown) Status post delivery (units unknown) (unknown) (unknown) (no date) (unknown) (unknown) Status: Chronic (uni ts unknown) (unknown) (unknown) (no date) (unknown) (unknown) Sulfa (Sulfona mide Antibiotics) Allergy (Mild, Verified 11/18/22 14:45) (units unknown) (unknown) (unknown) (no date) (unknown) (unknown) Surgical Histo ry (Updated 09/11/22 @ 09:01 by Rabia Gooden MD) (units unknown) (unknown) (unknown) (no date) (unknown) (unknown) This note may have been all or partially generated using voice recognition (units unknown) (unknown) (unknown) (no date) (unknown) (unknown) To nifedipine ER 60 mg PO DAILY 90 tabs 3RF (units unknown) (unknown) (unknown) (no date) (unknown) (unknown) Tobacco + Subs tance Use (units unknown) (unknown) (unknown) (no date) (unknown) (unknown) Tobacco Status (unit s unknown) (unknown) (unknown) (no date) (unknown) (unknown) Type(s) of exercise: none (units unknown) (unknown) (unknown) (no date) (unknown) (unknown) Visit Reasons: BP ck PP (units unknown) (unknown) (unknown) (no date) (unknown) (unknown) Vitals (units unknown) (unknown) (unknown) (no date) (unknown) (unknown) Weight 194 lb (units unknown) (unknown) (unknown) (no date) (unknown) (unknown) [Rx Confirmed 11/18/22] (units unknown) (unknown) (unknown) (no date) (unknown) (unknown) alcohol intake : former (units unknown) (unknown) (unknown) (no date) (unknown) (unknown) amoxicillin Al lergy (Mild, Verified 11/18/22 14:45) (units unknown) (unknown) (unknown) (no date) (unknown) (unknown) appropriate ch anges to the documentation and the assessment and plan based on my (units unknown) (unknown) (unknown) (no date) (unknown) (unknown) azithromycin Allergy (Mild, Verified 11/18/22 14:45) (units unknown) (unknown) (unknown) (no date) (unknown) (unknown) both have afib. (uni ts unknown) (unknown) (unknown) (no date) (unknown) (unknown) caffeine: Yes (units unknown) (unknown) (unknown) (no date) (unknown) (unknown) carbon monox detector in home: Yes (units unknown) (unknown) (unknown) (no date) (unknown) (unknown) chlorhexidine Adverse Reaction (Intermediate, Verified 11/18/22 14:45) (units unknown) (unknown) (unknown) (no date) (unknown) (unknown) clobetasol 0.0 5 % topical ointment 1 applic topical BID #45 grams 07/01/22 [Rx (units unknown) (unknown) (unknown) (no date) (unknown) (unknown) current occupational exposures/hazards: No (units unknown) (unknown) (unknown) (no date) (unknown) (unknown) daily servings fruits/ve-1 (units unknown) (unknown) (unknown) (no date) (unknown) (unknown) daily. She jean cks her BP at home using wrist cuff and regularly records systolic (units unknown) (unknown) (unknown) (no date) (unknown) (unknown) do you feel sa fe at home: Yes (units unknown) (unknown) (unknown) (no date) (unknown) (unknown) during the pas t year weight has: remained stable (units unknown) (unknown) (unknown) (no date) (unknown) (unknown) education leve l: other (units unknown) (unknown) (unknown) (no date) (unknown) (unknown) fire extinguis her in home: Yes (units unknown) (unknown) (unknown) (no date) (unknown) (unknown) firearms in ho me: No (units unknown) (unknown) (unknown) (no date) (unknown) (unknown) following tish very. She was started on lisinopril 40mg daily and nifedipine 30mg (units unknown) (unknown) (unknown) (no date) (unknown) (unknown) have occurred. If there are any questions, please contact the Medical Records (units unknown) (unknown) (unknown) (no date) (unknown) (unknown) household memb ers: significant other and children (units unknown) (unknown) (unknown) (no date) (unknown) (unknown) housing: apartment ( units unknown) (unknown) (unknown) (no date) (unknown) (unknown) latex Adverse Reaction (Mild, Verified 11/18/22 14:45) (units unknown) (unknown) (unknown) (no date) (unknown) (unknown) lisinopril 40 mg tablet 40 mg PO DAILY #30 tabs 10/28/22 [Rx Confirmed 11/18/22] (units unknown) (unknown) (unknown) (no date) (unknown) (unknown) lives independently: Yes (units unknown) (unknown) (unknown) (no date) (unknown) (unknown) marital status : unmarried,living together (units unknown) (unknown) (unknown) (no date) (unknown) (unknown) may occur. Occasional wrong-word or 'sound-alike' substitutions may have (units unknown) (unknown) (unknown) (no date) (unknown) (unknown) monitor BP at home and is in agreement with the plan. F/U in 3 months. (units unknown) (unknown) (unknown) (no date) (unknown) (unknown) nifedipine 60 mg tablet,extended release 24 hr 60 mg PO DAILY #90 tabs 11/18/22 (units unknown) (unknown) (unknown) (no date) (unknown) (unknown) number of chil dren: 2 (units unknown) (unknown) (unknown) (no date) (unknown) (unknown) occupational status: employed (units unknown) (unknown) (unknown) (no date) (unknown) (unknown) occurred due t o the inherent limitations of voice recognition software. Please (units unknown) (unknown) (unknown) (no date) (unknown) (unknown) personally performed a physical exam and medical decision making. I made (units unknown) (unknown) (unknown) (no date) (unknown) (unknown) pets and anima ls: Yes (1 cat (pt is not managing litter box)) (units unknown) (unknown) (unknown) (no date) (unknown) (unknown) , she was found to have elevated blood pressure which persisted (units unknown) (unknown) (unknown) (no date) (unknown) (unknown) prenat.vits,ca l,min -iron-folic 1 tab PO DAILY 01/27/22 [History Confirmed (units unknown) (unknown) (unknown) (no date) (unknown) (unknown) read the note carefully and recognize, using context, where these substitutions (units unknown) (unknown) (unknown) (no date) (unknown) (unknown) reports no oth er changes in her health at this time. (units unknown) (unknown) (unknown) (no date) (unknown) (unknown) seatbelt use: always (units unknown) (unknown) (unknown) (no date) (unknown) (unknown) second hand exposure: No (units unknown) (unknown) (unknown) (no date) (unknown) (unknown) sertraline 50 mg tablet 50 mg PO DAILY #30 tabs 10/28/22 [Rx Confirmed 11/18/22] (units unknown) (unknown) (unknown) (no date) (unknown) (unknown) software. Alth ough every effort is made to edit content, right of way man errors (units unknown) (unknown) (unknown) (no date) (unknown) (unknown) special fly needs: No (units unknown) (unknown) (unknown) (no date) (unknown) (unknown) substance use type: marijuana (units unknown) (unknown) (unknown) (no date) (unknown) (unknown) values in the 140s and 150s. She denies shortness of breath. She feels well and (units unknown) (unknown) (unknown) (no date) (unknown) (unknown) verification, exam and medical decision making. (units unknown) (unknown) (unknown) (no date) (unknown) (unknown) water heater t emp set < 120 deg: Yes (Will check and adjust if needed) (units unknown) (unknown) (unknown) (no date) (unknown) (unknown) well-balanced diet: about half the time (units unknown) (unknown) (unknown) (no date) (unknown) (unknown) working smoke detector in home: Yes (units unknown) (unknown) Result panel 14 (unknown) (no date) (unknown) (unknown) (no value) (units unknown) (unknown) (unknown) (no date) (unknown) (unknown) [id number] (units unknown) (unknown) (unknown) (no date) (unknown) (unknown) 12/23/22 (units unknown) (unknown) (unknown) (no date) (unknown) (unknown) 3 (units unknown) (unknown) (unknown) (no date) (unknown) (unknown) 32 yo female presents for headache,blood pressure, and swelling. (units unknown) (unknown) (unknown) (no date) (unknown) (unknown) Age/Sex: 32 / F Date of Service: (units unknown) (unknown) (unknown) (no date) (unknown) (unknown) Allergies (units unknown) (unknown) (unknown) (no date) (unknown) (unknown) [facility] (units unknown) (unknown) (unknown) (no date) (unknown) (unknown) BHAVYA Cotter [id number] (units unknown) (unknown) (unknown) (no date) (unknown) (unknown) Attending Dr: Cierra Cornejo P.A-C (units unknown) (unknown) (unknown) (no date) (unknown) (unknown) Blister (units unknown) (unknown) (unknown) (no date) (unknown) (unknown) Chronic cough (-2000) (units unknown) (unknown) (unknown) (no date) (unknown) (unknown) : 0 Acct:[id number] (units unknown) (unknown) (unknown) (no date) (unknown) (unknown) Depression (units unknown) (unknown) (unknown) (no date) (unknown) (unknown) Dept at . (units unknown) (unknown) (unknown) (no date) (unknown) (unknown) Diet and Exercise (u nits unknown) (unknown) (unknown) (no date) (unknown) (unknown) Documented By: Cierra Cornejo P.A-C 12/23/22 144 (units unknown) (unknown) (unknown) (no date) (unknown) (unknown) Draft (units unknown) (unknown) (unknown) (no date) (unknown) (unknown) Family History (units unknown) (unknown) (unknown) (no date) (unknown) (unknown) Family Practic e Office Visit (units unknown) (unknown) (unknown) (no date) (unknown) (unknown) Grandfather Hypertension (units unknown) (unknown) (unknown) (no date) (unknown) (unknown) Grandmother Ty pe 2 diabetes mellitus (units unknown) (unknown) (unknown) (no date) (unknown) (unknown) H/O bilateral salpingectomy (units unknown) (unknown) (unknown) (no date) (unknown) (unknown) Hypertension (units unknown) (unknown) (unknown) (no date) (unknown) (unknown) ITCHING (units unknown) (unknown) (unknown) (no date) (unknown) (unknown) Intake Note: (units unknown) (unknown) (unknown) (no date) (unknown) (unknown) Intake perform ed by: Doug Gomes (units unknown) (unknown) (unknown) (no date) (unknown) (unknown) Intake (units unknown) (unknown) (unknown) (no date) (unknown) (unknown) Intake- Clinci al Staff (units unknown) (unknown) (unknown) (no date) (unknown) (unknown) Last Menstural Cycle + Details (units unknown) (unknown) (unknown) (no date) (unknown) (unknown) Loc: [facility] (units unknown) (unknown) (unknown) (no date) (unknown) (unknown) Medical Histor y (Updated 11/18/22 @ 16:37 by Rabia Gooden MD) (units unknown) (unknown) (unknown) (no date) (unknown) (unknown) Mother Age: 51 Stroke (units unknown) (unknown) (unknown) (no date) (unknown) (unknown) Other Menstrua l Period: Other (units unknown) (unknown) (unknown) (no date) (unknown) (unknown) PFSH (units unknown) (unknown) (unknown) (no date) (unknown) (unknown) PUPP (pruritic urticarial papules and plaques of ) (units unknown) (unknown) (unknown) (no date) (unknown) (unknown) Patient: Ga Hagan MR#: [id number] (units unknown) (unknown) (unknown) (no date) (unknown) (unknown) Plantar fascii tis (-2015) (units unknown) (unknown) (unknown) (no date) (unknown) (unknown) Psoriasis (units unknown) (unknown) (unknown) (no date) (unknown) (unknown) RASH AND ITCHING (un its unknown) (unknown) (unknown) (no date) (unknown) (unknown) RASH (units unknown) (unknown) (unknown) (no date) (unknown) (unknown) Rash (units unknown) (unknown) (unknown) (no date) (unknown) (unknown) Reason For Visit (un its unknown) (unknown) (unknown) (no date) (unknown) (unknown) Safety (units unknown) (unknown) (unknown) (no date) (unknown) (unknown) Signed By: (units unknown) (unknown) (unknown) (no date) (unknown) (unknown) Smoking Status : Never smoker (units unknown) (unknown) (unknown) (no date) (unknown) (unknown) Social History (unit s unknown) (unknown) (unknown) (no date) (unknown) (unknown) Status post appendectomy (-1993) (units unknown) (unknown) (unknown) (no date) (unknown) (unknown) Status post delivery (01/06/11) (units unknown) (unknown) (unknown) (no date) (unknown) (unknown) Status post delivery (units unknown) (unknown) (unknown) (no date) (unknown) (unknown) Sulfa (Sulfona mide Antibiotics) Allergy (Mild, Verified 11/18/22 14:45) (units unknown) (unknown) (unknown) (no date) (unknown) (unknown) Surgical Histo ry (Updated 09/11/22 @ 09:01 by Rabia Gooden MD) (units unknown) (unknown) (unknown) (no date) (unknown) (unknown) This note may have been all or partially generated using voice recognition (units unknown) (unknown) (unknown) (no date) (unknown) (unknown) Tobacco + Subs tance Use (units unknown) (unknown) (unknown) (no date) (unknown) (unknown) Tobacco Status (unit s unknown) (unknown) (unknown) (no date) (unknown) (unknown) Type(s) of exercise: none (units unknown) (unknown) (unknown) (no date) (unknown) (unknown) Visit Reasons: BHATIA/BP/swelling (units unknown) (unknown) (unknown) (no date) (unknown) (unknown) alcohol intake : former (units unknown) (unknown) (unknown) (no date) (unknown) (unknown) amoxicillin Al lergy (Mild, Verified 11/18/22 14:45) (units unknown) (unknown) (unknown) (no date) (unknown) (unknown) azithromycin Allergy (Mild, Verified 11/18/22 14:45) (units unknown) (unknown) (unknown) (no date) (unknown) (unknown) caffeine: Yes (units unknown) (unknown) (unknown) (no date) (unknown) (unknown) carbon monox detector in home: Yes (units unknown) (unknown) (unknown) (no date) (unknown) (unknown) chlorhexidine Adverse Reaction (Intermediate, Verified 11/18/22 14:45) (units unknown) (unknown) (unknown) (no date) (unknown) (unknown) current occupational exposures/hazards: No (units unknown) (unknown) (unknown) (no date) (unknown) (unknown) daily servings fruits/ve-1 (units unknown) (unknown) (unknown) (no date) (unknown) (unknown) do you feel sa fe at home: Yes (units unknown) (unknown) (unknown) (no date) (unknown) (unknown) during the pas t year weight has: remained stable (units unknown) (unknown) (unknown) (no date) (unknown) (unknown) education leve l: other (units unknown) (unknown) (unknown) (no date) (unknown) (unknown) fire extinguis her in home: Yes (units unknown) (unknown) (unknown) (no date) (unknown) (unknown) firearms in ho me: No (units unknown) (unknown) (unknown) (no date) (unknown) (unknown) have occurred. If there are any questions, please contact the Medical Records (units unknown) (unknown) (unknown) (no date) (unknown) (unknown) household memb ers: significant other and children (units unknown) (unknown) (unknown) (no date) (unknown) (unknown) housing: apartment ( units unknown) (unknown) (unknown) (no date) (unknown) (unknown) latex Adverse Reaction (Mild, Verified 11/18/22 14:45) (units unknown) (unknown) (unknown) (no date) (unknown) (unknown) lives independently: Yes (units unknown) (unknown) (unknown) (no date) (unknown) (unknown) marital status : unmarried,living together (units unknown) (unknown) (unknown) (no date) (unknown) (unknown) may occur. Occasional wrong-word or 'sound-alike' substitutions may have (units unknown) (unknown) (unknown) (no date) (unknown) (unknown) number of chil dren: 2 (units unknown) (unknown) (unknown) (no date) (unknown) (unknown) occupational status: employed (units unknown) (unknown) (unknown) (no date) (unknown) (unknown) occurred due t o the inherent limitations of voice recognition software. Please (units unknown) (unknown) (unknown) (no date) (unknown) (unknown) pets and anima ls: Yes (1 cat (pt is not managing litter box)) (units unknown) (unknown) (unknown) (no date) (unknown) (unknown) read the note carefully and recognize, using context, where these substitutions (units unknown) (unknown) (unknown) (no date) (unknown) (unknown) seatbelt use: always (units unknown) (unknown) (unknown) (no date) (unknown) (unknown) second hand exposure: No (units unknown) (unknown) (unknown) (no date) (unknown) (unknown) software. Alth ough every effort is made to edit content, right of way man errors (units unknown) (unknown) (unknown) (no date) (unknown) (unknown) special fly needs: No (units unknown) (unknown) (unknown) (no date) (unknown) (unknown) substance use type: marijuana (units unknown) (unknown) (unknown) (no date) (unknown) (unknown) water heater t emp set < 120 deg: Yes (Will check and adjust if needed) (units unknown) (unknown) (unknown) (no date) (unknown) (unknown) well-balanced diet: about half the time (units unknown) (unknown) (unknown) (no date) (unknown) (unknown) working smoke detector in home: Yes (units unknown) (unknown) Result panel 15 (unknown) (no date) (unknown) (unknown) (no value) (units unknown) (unknown) (unknown) (no date) (unknown) (unknown) [id number] (units unknown) (unknown) (unknown) (no date) (unknown) (unknown) 12/23/22 (units unknown) (unknown) (unknown) (no date) (unknown) (unknown) 14:52 (units unknown) (unknown) (unknown) (no date) (unknown) (unknown) 3 (units unknown) (unknown) (unknown) (no date) (unknown) (unknown) 32 yo female presents for headache,blood pressure, and swelling. (units unknown) (unknown) (unknown) (no date) (unknown) (unknown) Age/Sex: 32 / F Date of Service: (units unknown) (unknown) (unknown) (no date) (unknown) (unknown) Allergies (units unknown) (unknown) (unknown) (no date) (unknown) (unknown) [facility] (units unknown) (unknown) (unknown) (no date) (unknown) (unknown) BHAVYA Cotter [id number] (units unknown) (unknown) (unknown) (no date) (unknown) (unknown) Attending Dr: Cierra Cornejo P.A-C (units unknown) (unknown) (unknown) (no date) (unknown) (unknown) BMI 36.2 (units unknown) (unknown) (unknown) (no date) (unknown) (unknown) BP 130/90 (units unknown) (unknown) (unknown) (no date) (unknown) (unknown) Blister (units unknown) (unknown) (unknown) (no date) (unknown) (unknown) Blood Pressure Location Lt brachial (units unknown) (unknown) (unknown) (no date) (unknown) (unknown) Chronic cough (-2000) (units unknown) (unknown) (unknown) (no date) (unknown) (unknown) : 0 Acct:[id number] (units unknown) (unknown) (unknown) (no date) (unknown) (unknown) Depression (units unknown) (unknown) (unknown) (no date) (unknown) (unknown) Dept at . (units unknown) (unknown) (unknown) (no date) (unknown) (unknown) Diet and Exercise (u nits unknown) (unknown) (unknown) (no date) (unknown) (unknown) Documented By: Cierra Cornejo P.A-C 12/23/22 144 (units unknown) (unknown) (unknown) (no date) (unknown) (unknown) Draft (units unknown) (unknown) (unknown) (no date) (unknown) (unknown) Family History (units unknown) (unknown) (unknown) (no date) (unknown) (unknown) Family Practic e Office Visit (units unknown) (unknown) (unknown) (no date) (unknown) (unknown) Grandfather Hypertension (units unknown) (unknown) (unknown) (no date) (unknown) (unknown) Grandmother Ty pe 2 diabetes mellitus (units unknown) (unknown) (unknown) (no date) (unknown) (unknown) H/O bilateral salpingectomy (units unknown) (unknown) (unknown) (no date) (unknown) (unknown) Height 5 ft 2 in (un its unknown) (unknown) (unknown) (no date) (unknown) (unknown) Hypertension (units unknown) (unknown) (unknown) (no date) (unknown) (unknown) ITCHING (units unknown) (unknown) (unknown) (no date) (unknown) (unknown) Intake Note: (units unknown) (unknown) (unknown) (no date) (unknown) (unknown) Intake perform ed by: Doug Gomes (units unknown) (unknown) (unknown) (no date) (unknown) (unknown) Intake (units unknown) (unknown) (unknown) (no date) (unknown) (unknown) Intake- Clinci al Staff (units unknown) (unknown) (unknown) (no date) (unknown) (unknown) Last Menstural Cycle + Details (units unknown) (unknown) (unknown) (no date) (unknown) (unknown) Loc: [facility] (units unknown) (unknown) (unknown) (no date) (unknown) (unknown) Medical Histor y (Updated 11/18/22 @ 16:37 by Rabia Gooden MD) (units unknown) (unknown) (unknown) (no date) (unknown) (unknown) Medications (units unknown) (unknown) (unknown) (no date) (unknown) (unknown) Mother Age: 51 Stroke (units unknown) (unknown) (unknown) (no date) (unknown) (unknown) Other Menstrua l Period: Other (units unknown) (unknown) (unknown) (no date) (unknown) (unknown) Oxygen Deliver y Method room air (units unknown) (unknown) (unknown) (no date) (unknown) (unknown) PFSH (units unknown) (unknown) (unknown) (no date) (unknown) (unknown) PUPP (pruritic urticarial papules and plaques of ) (units unknown) (unknown) (unknown) (no date) (unknown) (unknown) Patient: Ga Hagan MR#: [id number] (units unknown) (unknown) (unknown) (no date) (unknown) (unknown) Plantar fascii tis (-2016) (units unknown) (unknown) (unknown) (no date) (unknown) (unknown) Position Sitting (un its unknown) (unknown) (unknown) (no date) (unknown) (unknown) Psoriasis (units unknown) (unknown) (unknown) (no date) (unknown) (unknown) Pulse 78 (units unknown) (unknown) (unknown) (no date) (unknown) (unknown) Pulse Oximetry (%) 97 (units unknown) (unknown) (unknown) (no date) (unknown) (unknown) Pulse Source Monitor (units unknown) (unknown) (unknown) (no date) (unknown) (unknown) RASH AND ITCHING (un its unknown) (unknown) (unknown) (no date) (unknown) (unknown) RASH (units unknown) (unknown) (unknown) (no date) (unknown) (unknown) Rash (units unknown) (unknown) (unknown) (no date) (unknown) (unknown) Reason For Visit (un its unknown) (unknown) (unknown) (no date) (unknown) (unknown) Safety (units unknown) (unknown) (unknown) (no date) (unknown) (unknown) Signed By: (units unknown) (unknown) (unknown) (no date) (unknown) (unknown) Smoking Status : Never smoker (units unknown) (unknown) (unknown) (no date) (unknown) (unknown) Social History (unit s unknown) (unknown) (unknown) (no date) (unknown) (unknown) Status post appendectomy (-1993) (units unknown) (unknown) (unknown) (no date) (unknown) (unknown) Status post delivery (01/06/11) (units unknown) (unknown) (unknown) (no date) (unknown) (unknown) Status post delivery (units unknown) (unknown) (unknown) (no date) (unknown) (unknown) Sulfa (Sulfona mide Antibiotics) Allergy (Mild, Verified 12/23/22 14:49) (units unknown) (unknown) (unknown) (no date) (unknown) (unknown) Surgical Histo ry (Updated 09/11/22 @ 09:01 by Rabia Gooden MD) (units unknown) (unknown) (unknown) (no date) (unknown) (unknown) Temp 98.4 F (units unknown) (unknown) (unknown) (no date) (unknown) (unknown) Temp Source Temporal Artery Scan (units unknown) (unknown) (unknown) (no date) (unknown) (unknown) This note may have been all or partially generated using voice recognition (units unknown) (unknown) (unknown) (no date) (unknown) (unknown) Tobacco + Subs tance Use (units unknown) (unknown) (unknown) (no date) (unknown) (unknown) Tobacco Status (unit s unknown) (unknown) (unknown) (no date) (unknown) (unknown) Type(s) of exercise: none (units unknown) (unknown) (unknown) (no date) (unknown) (unknown) Visit Reasons: BHATIA/BP/swelling (units unknown) (unknown) (unknown) (no date) (unknown) (unknown) Vitals (units unknown) (unknown) (unknown) (no date) (unknown) (unknown) Weight 198 lb 4 oz ( units unknown) (unknown) (unknown) (no date) (unknown) (unknown) alcohol intake : former (units unknown) (unknown) (unknown) (no date) (unknown) (unknown) amoxicillin Al lergy (Mild, Verified 12/23/22 14:49) (units unknown) (unknown) (unknown) (no date) (unknown) (unknown) azithromycin Allergy (Mild, Verified 12/23/22 14:49) (units unknown) (unknown) (unknown) (no date) (unknown) (unknown) caffeine: Yes (units unknown) (unknown) (unknown) (no date) (unknown) (unknown) carbon monox detector in home: Yes (units unknown) (unknown) (unknown) (no date) (unknown) (unknown) chlorhexidine Adverse Reaction (Intermediate, Verified 12/23/22 14:49) (units unknown) (unknown) (unknown) (no date) (unknown) (unknown) current occupational exposures/hazards: No (units unknown) (unknown) (unknown) (no date) (unknown) (unknown) daily servings fruits/ve-1 (units unknown) (unknown) (unknown) (no date) (unknown) (unknown) do you feel sa fe at home: Yes (units unknown) (unknown) (unknown) (no date) (unknown) (unknown) during the pas t year weight has: remained stable (units unknown) (unknown) (unknown) (no date) (unknown) (unknown) education bren l: other (units unknown) (unknown) (unknown) (no date) (unknown) (unknown) fire extinguis her in home: Yes (units unknown) (unknown) (unknown) (no date) (unknown) (unknown) firearms in ho me: No (units unknown) (unknown) (unknown) (no date) (unknown) (unknown) have occurred. If there are any questions, please contact the Medical Records (units unknown) (unknown) (unknown) (no date) (unknown) (unknown) household memb ers: significant other and children (units unknown) (unknown) (unknown) (no date) (unknown) (unknown) housing: apartment ( units unknown) (unknown) (unknown) (no date) (unknown) (unknown) latex Adverse Reaction (Mild, Verified 12/23/22 14:49) (units unknown) (unknown) (unknown) (no date) (unknown) (unknown) lisinopril 40 mg tablet 40 mg PO DAILY #30 tabs 10/28/22 [Rx Confirmed 12/23/22] (units unknown) (unknown) (unknown) (no date) (unknown) (unknown) lives independently: Yes (units unknown) (unknown) (unknown) (no date) (unknown) (unknown) marital status : unmarried,living together (units unknown) (unknown) (unknown) (no date) (unknown) (unknown) may occur. Occasional wrong-word or 'sound-alike' substitutions may have (units unknown) (unknown) (unknown) (no date) (unknown) (unknown) number of chil dren: 2 (units unknown) (unknown) (unknown) (no date) (unknown) (unknown) occupational status: employed (units unknown) (unknown) (unknown) (no date) (unknown) (unknown) occurred due t o the inherent limitations of voice recognition software. Please (units unknown) (unknown) (unknown) (no date) (unknown) (unknown) pets and anima ls: Yes (1 cat (pt is not managing litter box)) (units unknown) (unknown) (unknown) (no date) (unknown) (unknown) read the note carefully and recognize, using context, where these substitutions (units unknown) (unknown) (unknown) (no date) (unknown) (unknown) seatbelt use: always (units unknown) (unknown) (unknown) (no date) (unknown) (unknown) second hand exposure: No (units unknown) (unknown) (unknown) (no date) (unknown) (unknown) sertraline 50 mg tablet 50 mg PO DAILY #30 tabs 10/28/22 [Rx Confirmed 12/23/22] (units unknown) (unknown) (unknown) (no date) (unknown) (unknown) software. Alth ough every effort is made to edit content, right of way man errors (units unknown) (unknown) (unknown) (no date) (unknown) (unknown) special fly needs: No (units unknown) (unknown) (unknown) (no date) (unknown) (unknown) substance use type: marijuana (units unknown) (unknown) (unknown) (no date) (unknown) (unknown) water heater t emp set < 120 deg: Yes (Will check and adjust if needed) (units unknown) (unknown) (unknown) (no date) (unknown) (unknown) well-balanced diet: about half the time (units unknown) (unknown) (unknown) (no date) (unknown) (unknown) working smoke detector in home: Yes (units unknown) (unknown) Result panel 16 (unknown) (no date) (unknown) (unknown) (no value) (units unknown) (unknown) (unknown) (no date) (unknown) (unknown) [id number] (units unknown) (unknown) (unknown) (no date) (unknown) (unknown) 12/23/22 (units unknown) (unknown) (unknown) (no date) (unknown) (unknown) 14:52 (units unknown) (unknown) (unknown) (no date) (unknown) (unknown) 3 (units unknown) (unknown) (unknown) (no date) (unknown) (unknown) 32 yo female presents for headache,blood pressure, and swelling. (units unknown) (unknown) (unknown) (no date) (unknown) (unknown) 12/20 was 180/1 08 and next BP check 170/105. (units unknown) (unknown) (unknown) (no date) (unknown) (unknown) Age/Sex: 32 / F Date of Service: (units unknown) (unknown) (unknown) (no date) (unknown) (unknown) Allergies (units unknown) (unknown) (unknown) (no date) (unknown) (unknown) [facility] (units unknown) (unknown) (unknown) (no date) (unknown) (unknown) BHAVYA [place] [id number] (units unknown) (unknown) (unknown) (no date) (unknown) (unknown) Attending Dr: Cierra Cornejo P.A-C (units unknown) (unknown) (unknown) (no date) (unknown) (unknown) BMI 36.2 (units unknown) (unknown) (unknown) (no date) (unknown) (unknown) BP 130/90 (units unknown) (unknown) (unknown) (no date) (unknown) (unknown) Blister (units unknown) (unknown) (unknown) (no date) (unknown) (unknown) Blood Pressure Location Lt brachial (units unknown) (unknown) (unknown) (no date) (unknown) (unknown) Chief Complaint (uni ts unknown) (unknown) (unknown) (no date) (unknown) (unknown) Chief Complain t: Follow up on HTN (units unknown) (unknown) (unknown) (no date) (unknown) (unknown) Chronic cough (-2000) (units unknown) (unknown) (unknown) (no date) (unknown) (unknown) : 0 Acct:[id number] (units unknown) (unknown) (unknown) (no date) (unknown) (unknown) Depression (units unknown) (unknown) (unknown) (no date) (unknown) (unknown) Dept at . (units unknown) (unknown) (unknown) (no date) (unknown) (unknown) Details: (units unknown) (unknown) (unknown) (no date) (unknown) (unknown) Diet and Exercise (u nits unknown) (unknown) (unknown) (no date) (unknown) (unknown) Documented By: Cierra Cornejo P.A-C 12/23/22 144 (units unknown) (unknown) (unknown) (no date) (unknown) (unknown) Draft (units unknown) (unknown) (unknown) (no date) (unknown) (unknown) Family History (units unknown) (unknown) (unknown) (no date) (unknown) (unknown) Family Practic e Office Visit (units unknown) (unknown) (unknown) (no date) (unknown) (unknown) Grandfather Hypertension (units unknown) (unknown) (unknown) (no date) (unknown) (unknown) Grandmother Ty pe 2 diabetes mellitus (units unknown) (unknown) (unknown) (no date) (unknown) (unknown) H/O bilateral salpingectomy (units unknown) (unknown) (unknown) (no date) (unknown) (unknown) HPI (units unknown) (unknown) (unknown) (no date) (unknown) (unknown) Height 5 ft 2 in (un its unknown) (unknown) (unknown) (no date) (unknown) (unknown) Hypertension (units unknown) (unknown) (unknown) (no date) (unknown) (unknown) ITCHING (units unknown) (unknown) (unknown) (no date) (unknown) (unknown) Intake Note: (units unknown) (unknown) (unknown) (no date) (unknown) (unknown) Intake perform ed by: Doug Gomes (units unknown) (unknown) (unknown) (no date) (unknown) (unknown) Intake (units unknown) (unknown) (unknown) (no date) (unknown) (unknown) Intake- Isreal al Staff (units unknown) (unknown) (unknown) (no date) (unknown) (unknown) Last Menstural Cycle + Details (units unknown) (unknown) (unknown) (no date) (unknown) (unknown) Loc: [facility] (units unknown) (unknown) (unknown) (no date) (unknown) (unknown) Medical Histor y (Updated 11/18/22 @ 16:37 by Rabia Gooden MD) (units unknown) (unknown) (unknown) (no date) (unknown) (unknown) Medications (units unknown) (unknown) (unknown) (no date) (unknown) (unknown) Mother Age: 51 Stroke (units unknown) (unknown) (unknown) (no date) (unknown) (unknown) Other Menstrua l Period: Other (units unknown) (unknown) (unknown) (no date) (unknown) (unknown) Oxygen Deliver y Method room air (units unknown) (unknown) (unknown) (no date) (unknown) (unknown) PCP: Dr. Gooden (uni ts unknown) (unknown) (unknown) (no date) (unknown) (unknown) PFSH (units unknown) (unknown) (unknown) (no date) (unknown) (unknown) PUPP (pruritic urticarial papules and plaques of ) (units unknown) (unknown) (unknown) (no date) (unknown) (unknown) Patient develo ped swelling of fingers, hands, legs, and (units unknown) (unknown) (unknown) (no date) (unknown) (unknown) Patient: Ga Hagan MR#: [id number] (units unknown) (unknown) (unknown) (no date) (unknown) (unknown) Plantar fascii tis (-2015) (units unknown) (unknown) (unknown) (no date) (unknown) (unknown) Position Sitting (un its unknown) (unknown) (unknown) (no date) (unknown) (unknown) Psoriasis (units unknown) (unknown) (unknown) (no date) (unknown) (unknown) Pulse 78 (units unknown) (unknown) (unknown) (no date) (unknown) (unknown) Pulse Oximetry (%) 97 (units unknown) (unknown) (unknown) (no date) (unknown) (unknown) Pulse Source Monitor (units unknown) (unknown) (unknown) (no date) (unknown) (unknown) RASH AND ITCHING (un its unknown) (unknown) (unknown) (no date) (unknown) (unknown) RASH (units unknown) (unknown) (unknown) (no date) (unknown) (unknown) Rash (units unknown) (unknown) (unknown) (no date) (unknown) (unknown) Reason For Visit (un its unknown) (unknown) (unknown) (no date) (unknown) (unknown) Safety (units unknown) (unknown) (unknown) (no date) (unknown) (unknown) Signed By: (units unknown) (unknown) (unknown) (no date) (unknown) (unknown) Smoking Status : Never smoker (units unknown) (unknown) (unknown) (no date) (unknown) (unknown) Social History (unit s unknown) (unknown) (unknown) (no date) (unknown) (unknown) Status post appendectomy (-1993) (units unknown) (unknown) (unknown) (no date) (unknown) (unknown) Status post delivery (01/06/11) (units unknown) (unknown) (unknown) (no date) (unknown) (unknown) Status post delivery (units unknown) (unknown) (unknown) (no date) (unknown) (unknown) Sulfa (Sulfona mide Antibiotics) Allergy (Mild, Verified 12/23/22 14:49) (units unknown) (unknown) (unknown) (no date) (unknown) (unknown) Surgical Histo ry (Updated 09/11/22 @ 09:01 by Rabia Gooden MD) (units unknown) (unknown) (unknown) (no date) (unknown) (unknown) Taking Lisinop ril daily without any issues. BP on (units unknown) (unknown) (unknown) (no date) (unknown) (unknown) Temp 98.4 F (units unknown) (unknown) (unknown) (no date) (unknown) (unknown) Temp Source Temporal Artery Scan (units unknown) (unknown) (unknown) (no date) (unknown) (unknown) This note may have been all or partially generated using voice recognition (units unknown) (unknown) (unknown) (no date) (unknown) (unknown) Tobacco + Subs tance Use (units unknown) (unknown) (unknown) (no date) (unknown) (unknown) Tobacco Status (unit s unknown) (unknown) (unknown) (no date) (unknown) (unknown) Tried lowering dose but swelling persisted. (units unknown) (unknown) (unknown) (no date) (unknown) (unknown) Type(s) of exercise: none (units unknown) (unknown) (unknown) (no date) (unknown) (unknown) Visit Reasons: BHATIA/BP/swelling (units unknown) (unknown) (unknown) (no date) (unknown) (unknown) Vitals (units unknown) (unknown) (unknown) (no date) (unknown) (unknown) Weight 198 lb 4 oz ( units unknown) (unknown) (unknown) (no date) (unknown) (unknown) alcohol intake : former (units unknown) (unknown) (unknown) (no date) (unknown) (unknown) amoxicillin Al lergy (Mild, Verified 12/23/22 14:49) (units unknown) (unknown) (unknown) (no date) (unknown) (unknown) azithromycin Allergy (Mild, Verified 12/23/22 14:49) (units unknown) (unknown) (unknown) (no date) (unknown) (unknown) caffeine: Yes (units unknown) (unknown) (unknown) (no date) (unknown) (unknown) carbon monox detector in home: Yes (units unknown) (unknown) (unknown) (no date) (unknown) (unknown) chlorhexidine Adverse Reaction (Intermediate, Verified 12/23/22 14:49) (units unknown) (unknown) (unknown) (no date) (unknown) (unknown) current occupational exposures/hazards: No (units unknown) (unknown) (unknown) (no date) (unknown) (unknown) daily servings fruits/ve-1 (units unknown) (unknown) (unknown) (no date) (unknown) (unknown) do you feel sa fe at home: Yes (units unknown) (unknown) (unknown) (no date) (unknown) (unknown) during the pas t year weight has: remained stable (units unknown) (unknown) (unknown) (no date) (unknown) (unknown) education leve l: other (units unknown) (unknown) (unknown) (no date) (unknown) (unknown) face about 2 w eeks after starting Nifedipine 60mg. (units unknown) (unknown) (unknown) (no date) (unknown) (unknown) fire extinguis her in home: Yes (units unknown) (unknown) (unknown) (no date) (unknown) (unknown) firearms in ho me: No (units unknown) (unknown) (unknown) (no date) (unknown) (unknown) have occurred. If there are any questions, please contact the Medical Records (units unknown) (unknown) (unknown) (no date) (unknown) (unknown) household memb ers: significant other and children (units unknown) (unknown) (unknown) (no date) (unknown) (unknown) housing: apartment ( units unknown) (unknown) (unknown) (no date) (unknown) (unknown) latex Adverse Reaction (Mild, Verified 12/23/22 14:49) (units unknown) (unknown) (unknown) (no date) (unknown) (unknown) lisinopril 40 mg tablet 40 mg PO DAILY #30 tabs 10/28/22 [Rx Confirmed 12/23/22] (units unknown) (unknown) (unknown) (no date) (unknown) (unknown) lives independently: Yes (units unknown) (unknown) (unknown) (no date) (unknown) (unknown) marital status : unmarried,living together (units unknown) (unknown) (unknown) (no date) (unknown) (unknown) may occur. Occasional wrong-word or 'sound-alike' substitutions may have (units unknown) (unknown) (unknown) (no date) (unknown) (unknown) number of chil dren: 2 (units unknown) (unknown) (unknown) (no date) (unknown) (unknown) occupational status: employed (units unknown) (unknown) (unknown) (no date) (unknown) (unknown) occurred due t o the inherent limitations of voice recognition software. Please (units unknown) (unknown) (unknown) (no date) (unknown) (unknown) pets and anima ls: Yes (1 cat (pt is not managing litter box)) (units unknown) (unknown) (unknown) (no date) (unknown) (unknown) read the note carefully and recognize, using context, where these substitutions (units unknown) (unknown) (unknown) (no date) (unknown) (unknown) seatbelt use: always (units unknown) (unknown) (unknown) (no date) (unknown) (unknown) second hand exposure: No (units unknown) (unknown) (unknown) (no date) (unknown) (unknown) sertraline 50 mg tablet 50 mg PO DAILY #30 tabs 10/28/22 [Rx Confirmed 12/23/22] (units unknown) (unknown) (unknown) (no date) (unknown) (unknown) software. Alth ough every effort is made to edit content, right of way man errors (units unknown) (unknown) (unknown) (no date) (unknown) (unknown) special fly needs: No (units unknown) (unknown) (unknown) (no date) (unknown) (unknown) substance use type: marijuana (units unknown) (unknown) (unknown) (no date) (unknown) (unknown) water heater t emp set < 120 deg: Yes (Will check and adjust if needed) (units unknown) (unknown) (unknown) (no date) (unknown) (unknown) well-balanced diet: about half the time (units unknown) (unknown) (unknown) (no date) (unknown) (unknown) working smoke detector in home: Yes (units unknown) (unknown) Result panel 17 (unknown) (no date) (unknown) (unknown) (no value) (units unknown) (unknown) (unknown) (no date) (unknown) (unknown) (1) Essential hypertension: (units unknown) (unknown) (unknown) (no date) (unknown) (unknown) [id number] (units unknown) (unknown) (unknown) (no date) (unknown) (unknown) 12/23/22 1520 (units unknown) (unknown) (unknown) (no date) (unknown) (unknown) 12/23/22 (units unknown) (unknown) (unknown) (no date) (unknown) (unknown) 1) Start Furos emide 10mg daily (units unknown) (unknown) (unknown) (no date) (unknown) (unknown) 14:52 (units unknown) (unknown) (unknown) (no date) (unknown) (unknown) 2) Check with mother and MGM to see what BP meds they (units unknown) (unknown) (unknown) (no date) (unknown) (unknown) 3 (units unknown) (unknown) (unknown) (no date) (unknown) (unknown) 3) Follow up i n 2 weeks (units unknown) (unknown) (unknown) (no date) (unknown) (unknown) 30 tabs 1RF I1 0 - Essential (primary) hypertension (units unknown) (unknown) (unknown) (no date) (unknown) (unknown) 32 yo female presents for headache,blood pressure, and swelling. (units unknown) (unknown) (unknown) (no date) (unknown) (unknown) 12/20 was 180/1 08 and next BP check 170/105. (units unknown) (unknown) (unknown) (no date) (unknown) (unknown) Age/Sex: 32 / F Date of Service: (units unknown) (unknown) (unknown) (no date) (unknown) (unknown) Allergies (units unknown) (unknown) (unknown) (no date) (unknown) (unknown) [facility] (units unknown) (unknown) (unknown) (no date) (unknown) (unknown) [place] [id number] (units unknown) (unknown) (unknown) (no date) (unknown) (unknown) Appearance: gr ossly normal (units unknown) (unknown) (unknown) (no date) (unknown) (unknown) Assessment + Plan (u nits unknown) (unknown) (unknown) (no date) (unknown) (unknown) Attending Dr: Cierra Cornejo P.A-C (units unknown) (unknown) (unknown) (no date) (unknown) (unknown) Auscultation: clear to auscultation bilaterally (units unknown) (unknown) (unknown) (no date) (unknown) (unknown) BMI 36.2 (units unknown) (unknown) (unknown) (no date) (unknown) (unknown) BP 130/90 (units unknown) (unknown) (unknown) (no date) (unknown) (unknown) Blister (units unknown) (unknown) (unknown) (no date) (unknown) (unknown) Blood Pressure Location Lt brachial (units unknown) (unknown) (unknown) (no date) (unknown) (unknown) Card (units unknown) (unknown) (unknown) (no date) (unknown) (unknown) Cardio (units unknown) (unknown) (unknown) (no date) (unknown) (unknown) Carotids: no bruits (units unknown) (unknown) (unknown) (no date) (unknown) (unknown) Chief Complaint (uni ts unknown) (unknown) (unknown) (no date) (unknown) (unknown) Chief Complain t: Follow up on HTN (units unknown) (unknown) (unknown) (no date) (unknown) (unknown) Chronic cough (-2000) (units unknown) (unknown) (unknown) (no date) (unknown) (unknown) Const (units unknown) (unknown) (unknown) (no date) (unknown) (unknown) : 0 Acct:[id number] (units unknown) (unknown) (unknown) (no date) (unknown) (unknown) Denies dyspnea (unit s unknown) (unknown) (unknown) (no date) (unknown) (unknown) Denies headache(s) ( units unknown) (unknown) (unknown) (no date) (unknown) (unknown) Depression (units unknown) (unknown) (unknown) (no date) (unknown) (unknown) Dept at . (units unknown) (unknown) (unknown) (no date) (unknown) (unknown) Details: (units unknown) (unknown) (unknown) (no date) (unknown) (unknown) Diet and Exercise (u nits unknown) (unknown) (unknown) (no date) (unknown) (unknown) Documented By: Cierra Cornejo P.A-C 12/23/22 144 (units unknown) (unknown) (unknown) (no date) (unknown) (unknown) ENT (units unknown) (unknown) (unknown) (no date) (unknown) (unknown) Ears, Nose, Mo uth, and Throat: Denies headache(s) (units unknown) (unknown) (unknown) (no date) (unknown) (unknown) Ears: hearing grossly normal bilaterally (units unknown) (unknown) (unknown) (no date) (unknown) (unknown) Effort + Inspection: normal respiratory effort and able to speak in complete (units unknown) (unknown) (unknown) (no date) (unknown) (unknown) Exam (units unknown) (unknown) (unknown) (no date) (unknown) (unknown) Extrem (units unknown) (unknown) (unknown) (no date) (unknown) (unknown) Family History (units unknown) (unknown) (unknown) (no date) (unknown) (unknown) Family Hx: (units unknown) (unknown) (unknown) (no date) (unknown) (unknown) Family Practic e Office Visit (units unknown) (unknown) (unknown) (no date) (unknown) (unknown) General: healt hy appearing, comfortable and no acute distress (units unknown) (unknown) (unknown) (no date) (unknown) (unknown) General: no edema (u nits unknown) (unknown) (unknown) (no date) (unknown) (unknown) General: patie nt oriented x3 and gait normal (units unknown) (unknown) (unknown) (no date) (unknown) (unknown) Grandfather Hypertension (units unknown) (unknown) (unknown) (no date) (unknown) (unknown) Grandmother Ty pe 2 diabetes mellitus (units unknown) (unknown) (unknown) (no date) (unknown) (unknown) H/O bilateral salpingectomy (units unknown) (unknown) (unknown) (no date) (unknown) (unknown) HENMT (units unknown) (unknown) (unknown) (no date) (unknown) (unknown) HPI (units unknown) (unknown) (unknown) (no date) (unknown) (unknown) Heart Sounds: S1 normal, S2 normal, no click, no gallops, no murmurs and no rubs (units unknown) (unknown) (unknown) (no date) (unknown) (unknown) Height 5 ft 2 in (un its unknown) (unknown) (unknown) (no date) (unknown) (unknown) Hypertension (units unknown) (unknown) (unknown) (no date) (unknown) (unknown) ITCHING (units unknown) (unknown) (unknown) (no date) (unknown) (unknown) Intake Note: (units unknown) (unknown) (unknown) (no date) (unknown) (unknown) Intake perform ed by: Doug Gomes (units unknown) (unknown) (unknown) (no date) (unknown) (unknown) Intake (units unknown) (unknown) (unknown) (no date) (unknown) (unknown) Intake- Isreal al Staff (units unknown) (unknown) (unknown) (no date) (unknown) (unknown) Last Menstural Cycle + Details (units unknown) (unknown) (unknown) (no date) (unknown) (unknown) Loc: [facility] (units unknown) (unknown) (unknown) (no date) (unknown) (unknown) MGM - HTN (units unknown) (unknown) (unknown) (no date) (unknown) (unknown) Medical Histor y (Updated 12/23/22 @ 15:11 by Cierra Cornejo PA-C) (units unknown) (unknown) (unknown) (no date) (unknown) (unknown) Medications (units unknown) (unknown) (unknown) (no date) (unknown) (unknown) Medications: (units unknown) (unknown) (unknown) (no date) (unknown) (unknown) Mental Status: mental status grossly normal (units unknown) (unknown) (unknown) (no date) (unknown) (unknown) Mother - CVA a t age 39 (had a hole in her heart) and HTN (units unknown) (unknown) (unknown) (no date) (unknown) (unknown) Mother Age: 51 Stroke (units unknown) (unknown) (unknown) (no date) (unknown) (unknown) Neck (units unknown) (unknown) (unknown) (no date) (unknown) (unknown) Neck: normal v isual inspection (units unknown) (unknown) (unknown) (no date) (unknown) (unknown) Neuro (units unknown) (unknown) (unknown) (no date) (unknown) (unknown) Neurologic: De nies headache(s) (units unknown) (unknown) (unknown) (no date) (unknown) (unknown) New (units unknown) (unknown) (unknown) (no date) (unknown) (unknown) Nutritional Appearance: other (elevated BMI) (units unknown) (unknown) (unknown) (no date) (unknown) (unknown) Orientation: oriented x3 (units unknown) (unknown) (unknown) (no date) (unknown) (unknown) Other Menstrua l Period: Other (units unknown) (unknown) (unknown) (no date) (unknown) (unknown) Oxygen Deliver y Method room air (units unknown) (unknown) (unknown) (no date) (unknown) (unknown) PCP: Dr. Gooden (uni ts unknown) (unknown) (unknown) (no date) (unknown) (unknown) PFSH (units unknown) (unknown) (unknown) (no date) (unknown) (unknown) PUPP (pruritic urticarial papules and plaques of ) (units unknown) (unknown) (unknown) (no date) (unknown) (unknown) Patient develo ped swelling of fingers, hands, legs, and (units unknown) (unknown) (unknown) (no date) (unknown) (unknown) Patient: Ga Hagan MR#: [id number] (units unknown) (unknown) (unknown) (no date) (unknown) (unknown) Plan (units unknown) (unknown) (unknown) (no date) (unknown) (unknown) Plantar fascii tis (-2016) (units unknown) (unknown) (unknown) (no date) (unknown) (unknown) Position Sitting (un its unknown) (unknown) (unknown) (no date) (unknown) (unknown) Psoriasis (units unknown) (unknown) (unknown) (no date) (unknown) (unknown) Psych (units unknown) (unknown) (unknown) (no date) (unknown) (unknown) Pulse 78 (units unknown) (unknown) (unknown) (no date) (unknown) (unknown) Pulse Oximetry (%) 97 (units unknown) (unknown) (unknown) (no date) (unknown) (unknown) Pulse Source Monitor (units unknown) (unknown) (unknown) (no date) (unknown) (unknown) RASH AND ITCHING (un its unknown) (unknown) (unknown) (no date) (unknown) (unknown) RASH (units unknown) (unknown) (unknown) (no date) (unknown) (unknown) ROS (units unknown) (unknown) (unknown) (no date) (unknown) (unknown) Rash (units unknown) (unknown) (unknown) (no date) (unknown) (unknown) Rate: regular rate ( units unknown) (unknown) (unknown) (no date) (unknown) (unknown) Reason For Visit (un its unknown) (unknown) (unknown) (no date) (unknown) (unknown) Reports as per HPI, Denies chest pain and Denies dyspnea (units unknown) (unknown) (unknown) (no date) (unknown) (unknown) Resp (units unknown) (unknown) (unknown) (no date) (unknown) (unknown) Rhythm: regula r rhythm (units unknown) (unknown) (unknown) (no date) (unknown) (unknown) Safety (units unknown) (unknown) (unknown) (no date) (unknown) (unknown) Signed By: <Electronically signed by Cierra Cornejo> (units unknown) (unknown) (unknown) (no date) (unknown) (unknown) Signed (units unknown) (unknown) (unknown) (no date) (unknown) (unknown) Smoking Status : Never smoker (units unknown) (unknown) (unknown) (no date) (unknown) (unknown) Social History (unit s unknown) (unknown) (unknown) (no date) (unknown) (unknown) Speech and Movement: speech and movement normal (units unknown) (unknown) (unknown) (no date) (unknown) (unknown) Status post appendectomy (-1993) (units unknown) (unknown) (unknown) (no date) (unknown) (unknown) Status post delivery (01/06/11) (units unknown) (unknown) (unknown) (no date) (unknown) (unknown) Status post delivery (units unknown) (unknown) (unknown) (no date) (unknown) (unknown) Status: Chronic (uni ts unknown) (unknown) (unknown) (no date) (unknown) (unknown) Sulfa (Sulfona mide Antibiotics) Allergy (Mild, Verified 12/23/22 14:49) (units unknown) (unknown) (unknown) (no date) (unknown) (unknown) Surgical Histo ry (Updated 09/11/22 @ 09:01 by Rabia Gooden MD) (units unknown) (unknown) (unknown) (no date) (unknown) (unknown) Take 1/2 table t once daily take with Lisinopril 10 mg (1/2 x 20 mg) PO DAILY (units unknown) (unknown) (unknown) (no date) (unknown) (unknown) Taking Lisinop ril daily without any issues. BP on (units unknown) (unknown) (unknown) (no date) (unknown) (unknown) Temp 98.4 F (units unknown) (unknown) (unknown) (no date) (unknown) (unknown) Temp Source Temporal Artery Scan (units unknown) (unknown) (unknown) (no date) (unknown) (unknown) This note may have been all or partially generated using voice recognition (units unknown) (unknown) (unknown) (no date) (unknown) (unknown) Tobacco + Subs tance Use (units unknown) (unknown) (unknown) (no date) (unknown) (unknown) Tobacco Status (unit s unknown) (unknown) (unknown) (no date) (unknown) (unknown) Tried lowering dose but swelling persisted. (units unknown) (unknown) (unknown) (no date) (unknown) (unknown) Type(s) of exercise: none (units unknown) (unknown) (unknown) (no date) (unknown) (unknown) Visit Reasons: BHATIA/BP/swelling (units unknown) (unknown) (unknown) (no date) (unknown) (unknown) Vitals (units unknown) (unknown) (unknown) (no date) (unknown) (unknown) Weight 198 lb 4 oz ( units unknown) (unknown) (unknown) (no date) (unknown) (unknown) alcohol intake : former (units unknown) (unknown) (unknown) (no date) (unknown) (unknown) amoxicillin Al lergy (Mild, Verified 12/23/22 14:49) (units unknown) (unknown) (unknown) (no date) (unknown) (unknown) azithromycin Allergy (Mild, Verified 12/23/22 14:49) (units unknown) (unknown) (unknown) (no date) (unknown) (unknown) caffeine: Yes (units unknown) (unknown) (unknown) (no date) (unknown) (unknown) carbon monox detector in home: Yes (units unknown) (unknown) (unknown) (no date) (unknown) (unknown) chlorhexidine Adverse Reaction (Intermediate, Verified 12/23/22 14:49) (units unknown) (unknown) (unknown) (no date) (unknown) (unknown) current occupational exposures/hazards: No (units unknown) (unknown) (unknown) (no date) (unknown) (unknown) daily servings fruits/ve-1 (units unknown) (unknown) (unknown) (no date) (unknown) (unknown) do you feel sa fe at home: Yes (units unknown) (unknown) (unknown) (no date) (unknown) (unknown) during the pas t year weight has: remained stable (units unknown) (unknown) (unknown) (no date) (unknown) (unknown) education leve l: other (units unknown) (unknown) (unknown) (no date) (unknown) (unknown) face about 2 w eeks after starting Nifedipine 60mg. (units unknown) (unknown) (unknown) (no date) (unknown) (unknown) fire extinguis her in home: Yes (units unknown) (unknown) (unknown) (no date) (unknown) (unknown) firearms in ho me: No (units unknown) (unknown) (unknown) (no date) (unknown) (unknown) furosemide 20 mg tablet 10 mg PO DAILY #30 tabs 12/23/22 [Rx Confirmed 12/23/22] (units unknown) (unknown) (unknown) (no date) (unknown) (unknown) furosemide (units unknown) (unknown) (unknown) (no date) (unknown) (unknown) have occurred. If there are any questions, please contact the Medical Records (units unknown) (unknown) (unknown) (no date) (unknown) (unknown) household memb ers: significant other and children (units unknown) (unknown) (unknown) (no date) (unknown) (unknown) housing: apartment ( units unknown) (unknown) (unknown) (no date) (unknown) (unknown) latex Adverse Reaction (Mild, Verified 12/23/22 14:49) (units unknown) (unknown) (unknown) (no date) (unknown) (unknown) lisinopril 40 mg tablet 40 mg PO DAILY #30 tabs 10/28/22 [Rx Confirmed 12/23/22] (units unknown) (unknown) (unknown) (no date) (unknown) (unknown) lives independently: Yes (units unknown) (unknown) (unknown) (no date) (unknown) (unknown) marital status : unmarried,living together (units unknown) (unknown) (unknown) (no date) (unknown) (unknown) may occur. Occasional wrong-word or 'sound-alike' substitutions may have (units unknown) (unknown) (unknown) (no date) (unknown) (unknown) number of chil dren: 2 (units unknown) (unknown) (unknown) (no date) (unknown) (unknown) occupational status: employed (units unknown) (unknown) (unknown) (no date) (unknown) (unknown) occurred due t o the inherent limitations of voice recognition software. Please (units unknown) (unknown) (unknown) (no date) (unknown) (unknown) pets and anima ls: Yes (1 cat (pt is not managing litter box)) (units unknown) (unknown) (unknown) (no date) (unknown) (unknown) read the note carefully and recognize, using context, where these substitutions (units unknown) (unknown) (unknown) (no date) (unknown) (unknown) seatbelt use: always (units unknown) (unknown) (unknown) (no date) (unknown) (unknown) second hand exposure: No (units unknown) (unknown) (unknown) (no date) (unknown) (unknown) sentences (units unknown) (unknown) (unknown) (no date) (unknown) (unknown) sertraline 50 mg tablet 50 mg PO DAILY #30 tabs 10/28/22 [Rx Confirmed 12/23/22] (units unknown) (unknown) (unknown) (no date) (unknown) (unknown) software. Alth ough every effort is made to edit content, right of way man errors (units unknown) (unknown) (unknown) (no date) (unknown) (unknown) special fly needs: No (units unknown) (unknown) (unknown) (no date) (unknown) (unknown) substance use type: marijuana (units unknown) (unknown) (unknown) (no date) (unknown) (unknown) take (units unknown) (unknown) (unknown) (no date) (unknown) (unknown) water heater t emp set < 120 deg: Yes (Will check and adjust if needed) (units unknown) (unknown) (unknown) (no date) (unknown) (unknown) well-balanced diet: about half the time (units unknown) (unknown) (unknown) (no date) (unknown) (unknown) working smoke detector in home: Yes (units unknown) (unknown)
--- NOTE | 2023-01-08 10:48 | ED Physician Documentation ---
PD HPI SYNCOPE - Stated complaint Stated Complaint: LIGHT HEADED - Chief complaint Chief Complaint: General - History obtained from History obtained from: Patient - History of Present Illness Witnessed: Unwitnessed Timing - onset: Today Duration: Minutes (bent to bead picker her 8 month old and felt lightheaded, near syncope when stood back up. No vertigo at that time. Has some vertigo with head movment subsequent. No headache.) Preceding symptoms: Light headed. No: Headache, Chest pain, Palpitations, Abdominal pain Contributing factors: Recent med change (had Furoxemide 40 mg added 10 days ago for HTN and mild fluid retention related to Ca jasbir (Nifedipine).), Just stood up. No: Decreased PO intake, Noxious stimulae, Exertion Injury occurred: No: Head injury, Neck injury Similar symptoms before: Has not had sx before Recently seen: Clinic Review of Systems Constitutional: denies: Fever, Chills Nose: denies: Rhinorrhea / runny nose, Congestion Throat: denies: Sore throat Cardiac: reports: Pedal edema (last few weeks after on Nifeidipine for HTN. It was stopped and Lasix started about 10 days ago.). denies: Chest pain / pressure, Palpitations, Calf pain Respiratory: denies: Cough GI: reports: Nausea, Vomiting (once after the lightheadedness.). 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 : None HEENT: None Psych: Depression Musculoskeletal: Other Derm: None - Past Surgical History Past Surgical History: Yes General: Appendectomy /CHIEF PAYROLL CLERK: section - Present Medications Home Medications: Ambulatory Orders Medication Instructions Recorded Confirmed Furosemide [Lasix] 10 mg PO DAILY 01/08/23 01/08/23 Lisinopril [Zestril] 40 mg PO DAILY 01/08/23 01/08/23 Meclizine HCl [Motion Sickness] 25 mg PO Q6H PRN #30 tablet 01/08/23 hydroCHLOROthiazide [Hydrodiuril] 25 mg PO DAILY 30 Days #30 tablet 01/08/23 - Allergies Allergies/Adverse Reactions: Allergies Allergy/AdvReac Type Severity Reaction Status Date / Time amoxicillin [Amoxicillin] Allergy Rash Verified 01/08/23 10:14 azithromycin [From Zithromax] Allergy Rash Verified 01/08/23 10:14 chlorhexidine Allergy Rash Verified 01/08/23 10:14 Penicillins Allergy Rash Verified 01/08/23 10:14 Sulfa (Sulfonamide Allergy Rash Verified 01/08/23 10:14 Antibiotics) nifedipine AdvReac Edema Verified 01/08/23 10:14 - Social History Does the pt smoke?: No Smoking Status: Never smoker Does the pt drink ETOH?: Yes Does the pt have substance abuse?: No - Immunizations Immunizations are current?: Yes - POLST Patient has POLST: No PD ED PE NORMAL - Vitals Vital signs reviewed: Yes (elevated BP which she says is at her baseline numbers right now. ) - General General: Alert and oriented X 3, No acute distress, Well developed/nourished - HEENT HEENT: PERRL, EOMI, Pharynx benign - Neck Neck: Supple, no meningeal sign, No adenopathy, No bruit - Cardiac Cardiac: RRR, No murmur - Respiratory Respiratory: Clear bilaterally - Abdomen Abdomen: Soft, Non tender - Derm Derm: Normal color, Warm and dry - Extremities Extremities: No edema, No calf tenderness / cord - Neuro Neuro: Alert and oriented X 3, No motor deficit, No sensory deficit, Normal speech Results - Vitals Vitals: Vital Signs - 24 hr 01/08/23 01/08/23 01/08/23 10:10 11:32 12:13 Temperature 36.1 C L Heart Rate 72 87 Heart Rate [ 76 Sitting] Heart Rate [ 73 Standing] Heart Rate [ 81 Supine] Respiratory 18 13 Rate Blood Pressure 168/116 H 166/102 H Blood Pressure 157/112 H [Sitting] Blood Pressure 157/119 H [Standing] Blood Pressure 115/101 H [Supine] O2 Saturation 99 100 01/08/23 12:28 Temperature Heart Rate 78 Heart Rate [ Sitting] Heart Rate [ Standing] Heart Rate [ Supine] Respiratory 18 Rate Blood Pressure 186/112 H Blood Pressure [Sitting] Blood Pressure [Standing] Blood Pressure [Supine] O2 Saturation 99 Oxygen O2 Source Room air - EKG (time done) 11:08 EKG releavant findings:: EKG personally interpreted by author of this note. Relevant findings are: Rate: Rate (enter#) (68) Rhythm: NSR [place]: Normal Intervals: Normal CT QRS: Normal Ischemia: Normal ST segments. No: ST elevation c/w ischemia, ST depression - Labs Labs: Laboratory Tests 01/08/23 01/08/23 01/08/23 10:37 10:37 10:37 WBC 7.3 RBC 4.01 L Hgb 12.5 Hct 36.5 L MCV 91.0 MCH 31.2 H MCHC 34.2 RDW 13.3 Plt Count 238 MPV 9.9 Neut # (Auto) 5.2 Lymph # (Auto) 1.[address] [place] # (Auto) 0.5 Eos # (Auto) 0.2 Baso # (Auto) 0.1 Absolute Nucleated RBC 0.00 Nucleated RBC % 0.0 Sodium 139 Potassium 3.0 L Chloride 104 Carbon Dioxide 26 Anion Gap 9.0 BUN 9 Creatinine 0.6 Estimated GFR (MDRD) 116 Glucose 113 H Calcium 8.5 Magnesium 1.9 Total Bilirubin 0.9 AST 26 ALT 39 Alkaline Phosphatase 60 Troponin I High Sens 3.0 B-Natriuretic Peptide Total Protein 6.9 Albumin 3.8 Globulin 3.1 Albumin/Globulin Ratio 1.2 Lipase 35 01/08/23 10:37 WBC RBC Hgb Hct MCV MCH MCHC RDW Plt Count MPV Neut # (Auto) Lymph # (Auto) [place] # (Auto) Eos # (Auto) Baso # (Auto) Absolute Nucleated RBC Nucleated RBC % Sodium Potassium Chloride Carbon Dioxide Anion Gap BUN Creatinine Estimated GFR (MDRD) Glucose Calcium Magnesium Total Bilirubin AST ALT Alkaline Phosphatase Troponin I High Sens B-Natriuretic Peptide 41 Total Protein Albumin Globulin Albumin/Globulin Ratio Lipase PD Medical Decision Making - ED course Complexity details: reviewed results (ECG is normal. Trop and BNP normal so no signs of AMI/CHF. K is low at 3.0 and may be giving some of the symptoms. Postural vitals are okay. ), re-evaluated patient, considered differential (rece nt new BP med Lasix for the past 10 days. Had postural lightheaded today. Some element of verigo on head movemnet too, but mainly the lightheaded. BP is elevated but at her usual baseline per patient. K is low, presume from Lasix. Can try changing to HCTZ instead. No signs of more significance.), d/w patient Departure - Departure Disposition: 01 Home, Self Care Clinical Impression: Postural lightheadedness, Hypertension, Hypokalemia Condition: Stable Record reviewed to determine appropriate education?: Yes Instructions: ED Diet High Potassium, ED Near Syncope Unkn Prescriptions: hydroCHLOROthiazide [Hydrodiuril] 25 mg PO DAILY 30 Days #30 tablet Meclizine HCl [Motion Sickness] 25 mg PO Q6H PRN #30 tablet PRN Reason: Vertigo Comments: Your symptoms sound likely to be partly in her ear related as you did have some feeling of dizziness with head movement. You can use Meclizine every 8 hours if needed for vertigo component as needed. However the general lightheadedness you had earlier to likely relates to a mild electrolyte abnormality with a low potassium and its effect on your blood pressure regulation etc. I presume the low potassium is related to the recent water pill furosemide. Your magnesium is in the normal range but on the lower end as well. I would suggest high potassium diet over the next week. You may consider a magnesium [id number] supplement such as Mag-Ox 400 mg daily for a week or so. Otherwise I would probably suggest changing from the furosemide to hydrochlorothiazide which typically does not affect the electrolytes so much. Otherwise follow-up with your primary care regarding further blood pressure treatments. Discharge Date/Time: 01/08/23 12:30
[2023-01-08] MEDS ORDERED: MECLIZINE 12.5 MG TABLET PO STA (11:06)
[2023-01-08 11:17] LABS: BASOPHILS # (AUTO) 0.1 10^3/uL (0.0-0.1); BASOPHILS % (AUTO) 0.8 %; EOSINOPHILS # (AUTO) 0.2 10^3/uL (0.0-0.7); HCT - HEMATOCRIT 36.5 % (37.0-47.0); HGB - HEMOGLOBIN 12.5 g/dL (12.0-16.0); LYMPHOCYTES # (AUTO) 1.3 10^3/uL (1.5-3.5); LYMPHOCYTES % (AUTO) 18.1 %; MEAN CORPUSCULAR HEMOGLOBIN 31.2 pg (27.0-31.0); MEAN CORPUSCULAR HGB CONC 34.2 g/dL (32.0-36.0); MEAN PLATELET VOLUME 9.9 fL (7.9-10.8); MONOCYTES # (AUTO) 0.5 10^3/uL (0.0-1.0); NEUTROPHILS # (AUTO) 5.2 10^3/uL (1.5-6.6); NEUTROPHILS % (AUTO) 70.6 %; PLT - PLATELET COUNT 238 10^3/uL (130-450); RED BLOOD COUNT 4.01 10^6/uL (4.20-5.40); RED CELL DISTRIBUTION WIDTH 13.3 % (12.0-15.0); WHITE BLOOD COUNT 7.3 x10^3/uL (4.8-10.8)
[2023-01-08 11:30] LABS: ALBUMIN 3.8 g/dL (3.2-5.5); ALBUMIN/GLOBULIN RATIO 1.2 (1.0-2.2); BILIRUBIN,TOTAL 0.9 mg/dL (0.2-1.0); CALCIUM 8.5 mg/dL (8.5-10.3); CREATININE 0.6 mg/dL (0.4-1.0); MAGNESIUM 1.9 mg/dL (1.7-2.8); TOTAL PROTEIN 6.9 g/dL (6.7-8.2)
[2023-01-08] MEDS ORDERED: POTASSIUM BICARB 25 MEQ TABLET PO STA (12:05)
[2023-01-08 12:29] VITALS: BP 186/112
== END 2023-01-08 12:30 | disposition home or self-care (01) ==
LOC: ED 10:02
DX: R42 Dizziness and giddiness (principal); I10 Essential (primary) hypertension; E87.6 Hypokalemia
CPT/HCPCS: 36415; 80053; 83690; 83735; 83880; 84484; 85025; 93005; 99284; A9270

== ENCOUNTER 2023-01-27 12:02 | Emergency (ER) | payer MEDICAID ==
[2023-01-27 12:29] VITALS: BP 178/114
--- NOTE | 2023-01-27 13:35 | ED Physician Documentation ---
History of Present Illness - Stated complaint Stated Complaint: TINGLY GUMS - Chief complaint Chief Complaint: Allergic Rx - History obtained from History obtained from: Patient (A sore on the right lower lip starting yesterday with tingling in that area. 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: section - Present Medications Home Medications: Ambulatory Orders Medication Instructions Recorded Confirmed Furosemide [Lasix] 10 mg PO DAILY 01/08/23 01/08/23 Lisinopril [Zestril] 40 mg PO DAILY 01/08/23 01/08/23 Meclizine HCl [Motion Sickness] 25 mg PO Q6H PRN #30 tablet 01/08/23 hydroCHLOROthiazide [Hydrodiuril] 25 mg PO DAILY 30 Days #30 tablet 01/08/23 Valacyclovir HCl [Valtrex] 1,000 mg PO BID #20 tablet 01/27/23 - Allergies Allergies/Adverse Reactions: Allergies Allergy/AdvReac Type Severity Reaction Status Date / Time amoxicillin [Amoxicillin] Allergy Rash Verified 01/27/23 12:26 azithromycin [From Zithromax] Allergy Rash Verified 01/27/23 12:26 chlorhexidine Allergy Rash Verified 01/27/23 12:26 Penicillins Allergy Rash Verified 01/27/23 12:26 Sulfa (Sulfonamide Allergy Rash Verified 01/27/23 12:26 Antibiotics) nifedipine AdvReac Edema Verified 01/27/23 12:26 - Social History Does the pt smoke?: No Smoking Status: Never smoker Does the pt drink ETOH?: Yes Does the pt have substance abuse?: No - Immunizations Immunizations are current?: Yes - POLST Patient has POLST: No PD ED PE NORMAL - Vitals Vital signs reviewed: Yes - General General: Alert and oriented X 3, No acute distress - HEENT HEENT: Other (She has classic herpes simplex lesion on the right lower lip) - Neck Neck: Supple, no meningeal sign, No bony TTP Results - Vitals Vitals: Vital Signs - 24 hr 01/27/23 12:23 Temperature 35.9 C L Heart Rate 73 Respiratory 16 Rate Blood Pressure 178/114 H O2 Saturation 98 Oxygen O2 Source Room air Departure - Departure Disposition: 01 Home, Self Care 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 Follow-up with your primary care physician. Return for new or worsening symptoms.
== END 2023-01-27 13:30 | disposition home or self-care (01) ==
LOC: ED 12:02
DX: B00.9 Herpesviral infection, unspecified (principal)
CPT/HCPCS: 99282; 99283

== ENCOUNTER 2023-09-22 13:31 | Emergency (ER) | payer MEDICAID ==
--- NOTE | 2023-09-22 16:06 | ED Physician Documentation ---
PD HPI CHEST PAIN - Stated complaint Stated Complaint: HIGH BP,CHEST PRESSURE - Chief complaint Chief Complaint: Cardiac - Additional information Additional information: 33-year-old female presents emergency department for ongoing signs and symptoms of hypertension. Patient reports that she recently ran out of her medications to manage her hypertension in July which included lisinopril and metoprolol she said that she has reached out to her primary care provider multiple times to get a refill of these medications but unfortunately her primary care provider is unable to get her in until January 2024. Patient reports that she has got ongoing headache that is not alleviated with Tylenol. She reports that she normally takes 20 mg of lisinopril twice a day and 50 mg of metoprolol once a day. She said that she is able to get in with a new primary care provider but not until November 02 and is just worried about not having any antihypertensive medications until then. She also reports in chest pain that started last night that has overall improved but now is feeling a sense of chest tightness that is radiating to her back. 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 ANALYST: section - Present Medications Home Medications: Ambulatory Orders Medication Instructions Recorded Confirmed Lisinopril [Zestril] 20 mg PO BID #60 tablet 09/22/23 Metoprolol Tartrate [Lopressor] 50 mg PO DAILY #30 tablet 09/22/23 Potassium Chloride 20 meq PO DAILY #30 tab 09/22/23 - Allergies Allergies/Adverse Reactions: Allergies Allergy/AdvReac Type Severity Reaction Status Date / Time amoxicillin [Amoxicillin] Allergy Rash Verified 09/22/23 13:39 azithromycin [From Zithromax] Allergy Rash Verified 09/22/23 13:39 chlorhexidine Allergy Rash Verified 09/22/23 13:39 Penicillins Allergy Rash Verified 09/22/23 13:39 Sulfa (Sulfonamide Allergy Rash Verified 09/22/23 13:39 Antibiotics) nifedipine AdvReac Edema Verified 09/22/23 13:39 - Social History Does the pt smoke?: No Smoking Status: Never smoker Does the pt drink ETOH?: Yes Does the pt have substance abuse?: No - Immunizations Immunizations are current?: Yes - POLST Patient has POLST: No PD ED PE NORMAL - Vitals Vital signs reviewed: Yes - General General: Alert and oriented X 3, No acute distress, Well developed/nourished - HEENT HEENT: Atraumatic - Respiratory Respiratory: No respiratory distress - Abdomen Abdomen: Normal bowel sounds, Soft, Non tender - Derm Derm: Normal color - Extremities Extremities: No edema, No calf tenderness / cord - Neuro Neuro: Alert and oriented X 3, No motor deficit, Normal speech Eye Opening: Spontaneous Motor: Obeys Commands Verbal: Oriented GCS Score: 15 - Psych Psych: Normal mood Results - Vitals Vitals: Vital Signs - 24 hr 09/22/23 09/22/23 09/22/23 13:34 15:52 17:00 Temperature 36.5 C Heart Rate 89 88 87 Respiratory 18 17 15 Rate Blood Pressure 181/125 H 177/124 H 179/129 H O2 Saturation 98 97 99 09/22/23 09/22/23 09/22/23 19:27 20:08 20:31 Temperature Heart Rate 82 80 87 Respiratory 14 18 18 Rate Blood Pressure 208/133 H 186/106 H 172/114 H O2 Saturation 98 98 99 Oxygen O2 Source Room air - EKG (time done) 1339 EKG releavant findings:: EKG personally interpreted by author of this note. Relevant findings are: Rate: Rate (enter#) (83) Rhythm: NSR, Normal P waves [place]: LAD Intervals: Normal UT QRS: Normal, LVH Ischemia: Normal ST segments Computer interpretation: Agree with computer (ECG reveals normal sinus rhythm, heart rate 83, QTc 472, left axis deviation, left ventricular hypertrophy, no ST depression no T wave inversions no ST elevation.) - Labs Labs: Laboratory Tests 09/22/23 09/22/23 17:38 17:40 Sodium 140 Potassium 2.8 L Chloride 102 Carbon Dioxide 29 Anion Gap 9.0 BUN 13 Creatinine 0.6 Estimated GFR (MDRD) 115 Glucose 104 Calcium 9.2 Magnesium 1.8 Troponin I High Sens 3.5 - Rads (name of study) Chest x-ray Relevant Findings:: Final report received, EMP independent interpretation of test (No cardiomegaly, no other cardiopulmonary abnormalities.) PD Medical Decision Making - ED course ED course: 33-year-old female presents to the emergency department for chest pain and ongoing headache and concerns of hypertension Exam without evidence of volume overload so doubt heart failure. EKG without signs of active ischemia. Given the timing of pain to ER presentation, single troponin was negative so doubt NSTEMI. Presentation not consistent with acute PE (PERC negative),pneumothorax (not visualized on chest xr), thoracic aortic dissection, pericarditis, tamponade, pneumonia (no infectious symptoms, clear chest xr), myocarditis (no recent illness, neg trop). HEART score:3 so plan to discharge patient home with PCP follow-up and strict return precautions. CMP complete she does have hypokalemia, potassium 2.8, patient has been found to have chronic hypokalemia her potassium baseline is usually around 3.0 when I evaluate her previous labs. Troponin is not elevated Patient was given her home dose of metoprolol and lisinopril which did bring her blood pressure down. She was given Tylenol, Toradol and droperidol for headache which she reports has significantly alleviated her head pain. Patient said that she is ready for discharge she does not want any further workup at this time she is given strict return precautions as well as a prescription for her home antihypertensive medications to get her through to her PCP follow-up appointment in October. All questions answered safe for discharge. Departure - Departure Disposition: Home, Self Care Clinical Impression: Hypertension Qualifiers: Hypertension type: primary hypertension Qualified Code(s): I10 - Essential (primary) hypertension Headache Qualifiers: Headache type: unspecified Headache chronicity pattern: acute headache Intractability: not intractable Qualified Code(s): R51.9 - Headache, unspecified Condition: Good Instructions: ED Headache Tension Prescriptions: Metoprolol Tartrate [Lopressor] 50 mg PO DAILY #30 tablet Potassium Chloride 20 meq PO DAILY #30 tab Lisinopril [Zestril] 20 mg PO BID #60 tablet Comments: Thank you for trusting us with your care I have sent a refill for your antihypertensive medications to the pharmacy across the street. You will take 20 mg of lisinopril in the a.m. and p.m. and 50 mg of metoprolol once daily which is what I found that you were recently on. We also found you to have low potassium also known as hypokalemia I recommend taking a 20 mEq potassium pill daily and have your potassium rechecked. Make sure that you do everything possible to not miss your appointment with your new primary care provider to avoid this in the future. Wishing you a speedy recovery please come back and if you are starting to have any worsening chest pain, shortness of breath, worsening headache or any other concerning symptoms. Forms: PCP List Discharge Date/Time: 09/22/23 20:31
[2023-09-22] MEDS: ASPIRIN CHEW 81 MG TABLET PO ONE (17:32)
[2023-09-22] MEDS: KETOROLAC 15 MG/ML VIAL IM STA ×2 (17:33→19:21)
--- NOTE | 2023-09-22 17:41 | XRAY Report ---
PROCEDURE: Chest 1V INDICATIONS: chest pain TECHNIQUE: One view of the chest was acquired. COMPARISON: Chest radiograph 01/13/2022. FINDINGS: Surgical changes and devices: None. Lungs and pleura: No pleural effusions or pneumothorax. Lungs are clear. Mediastinum: Mediastinal contours appear normal. Heart size is normal. Bones and chest wall: No suspicious bony lesions. Overlying soft tissues appear unremarkable. IMPRESSION: No acute cardiopulmonary process. Reviewed by: Kendra Van MD on 09/22/2023 5:40 PM PST Approved by: Kendra Van MD on 09/22/2023 5:40 PM PST Station ID: [id number]
[2023-09-22 18:04] LABS: TROPONIN I HIGH SENSITIVITY 3.5 ng/L (2.3-14.8)
[2023-09-22 18:17] LABS: CALCIUM 9.2 mg/dL (8.5-10.3); CREATININE 0.6 mg/dL (0.6-1.3); POTASSIUM 2.8 mmol/L (3.5-4.5)
[2023-09-22] MEDS: ACETAMINOPHEN 325 MG TABLET PO STA (19:18)
[2023-09-22] MEDS: DROPERIDOL 5 MG/2 ML VIAL IM STA (19:20)
[2023-09-22] MEDS: lisinopriL 5 MG TABLET PO STA ×2 (19:41→19:55)
[2023-09-22] MEDS: METOPROLOL TARTRATE 50 MG TABLET PO STA (19:54)
[2023-09-22 20:36] VITALS: BP 172/114; O2SAT 99
== END 2023-09-22 20:31 | disposition home or self-care (01) ==
LOC: ED 13:31
DX: I10 Essential (primary) hypertension (principal); R51.9 Headache, unspecified
CPT/HCPCS: 36415; 80048; 83735; 84484; 93005; 96372; 99284

== ENCOUNTER 2023-11-10 09:56 | Outpatient (CLI) | payer MEDICAID ==
[2023-11-10 10:09] LABS: BASOPHILS # (AUTO) 0.1 10^3/uL (0.0-0.1); BASOPHILS % (AUTO) 1.3 %; EOSINOPHILS # (AUTO) 0.2 10^3/uL (0.0-0.7); HCT - HEMATOCRIT 38.4 % (37.0-47.0); HGB - HEMOGLOBIN 12.2 g/dL (12.0-16.0); LYMPHOCYTES # (AUTO) 1.4 10^3/uL (1.5-3.5); LYMPHOCYTES % (AUTO) 23.5 %; MEAN CORPUSCULAR HEMOGLOBIN 27.5 pg (27.0-31.0); MEAN CORPUSCULAR HGB CONC 31.8 g/dL (32.0-36.0); MEAN CORPUSCULAR VOLUME 86.5 fL (81.0-99.0); MEAN PLATELET VOLUME 9.1 fL (7.9-10.8); MONOCYTES # (AUTO) 0.5 10^3/uL (0.0-1.0); MONOCYTES % (AUTO) 7.8 %; NEUTROPHILS # (AUTO) 3.8 10^3/uL (1.5-6.6); NEUTROPHILS % (AUTO) 62.9 %; PLT - PLATELET COUNT 262 10^3/uL (130-450); RED BLOOD COUNT 4.44 10^6/uL (4.20-5.40); RED CELL DISTRIBUTION WIDTH 14.3 % (12.0-15.0)
[2023-11-10 10:30] LABS: ALBUMIN 4.3 g/dL (3.2-5.5); ALBUMIN/GLOBULIN RATIO 1.6 (1.0-2.2); BILIRUBIN,TOTAL 0.7 mg/dL (0.2-1.0); CALCIUM 9.1 mg/dL (8.5-10.3); CREATININE 0.7 mg/dL (0.6-1.3); POTASSIUM 3.4 mmol/L (3.5-4.5)
[2023-11-10 10:41] LABS: THYROID STIMULATING HORMONE 1.07 uIU/mL (0.34-5.60)
[2023-11-10 15:12] LABS: BILIRUBIN,URINE NEGATIVE (NEGATIVE); GLUCOSE, URINE (UA) NEGATIVE (NEGATIVE); KETONES,URINE (UA) NEGATIVE (NEGATIVE); LEUKOCYTE ESTERASE, URINE NEGATIVE (NEGATIVE); NITRITE,URINE POSITIVE (NEGATIVE); OCCULT BLOOD,URINE NEGATIVE (NEGATIVE); PH,URINE 6.5 PH (5.0-7.5); PROTEIN,URINE NEGATIVE (NEGATIVE); UROBILINOGEN,URINE 0.2 (NORMAL) E.U./dL (NORMAL)
[2023-11-10 15:17] LABS: CLARITY,URINE CLEAR (CLEAR)
[2023-11-10 16:12] LABS: BACTERIA,URINE Many /HPF (None Seen); RBC,URINE None Seen /HPF (0-5); SQUAMOUS EPITHELIAL CELL,UR FEW Squamous (<= Few); WBC,URINE 0-3 /HPF (0-5)
== END 2023-11-10 09:57 | disposition home or self-care (01) ==
LOC: LAB 09:56
PROVIDERS: ATTEND Physician Assistant
DX: I16.0 Hypertensive urgency (principal)
CPT/HCPCS: 36415; 80053; 81001; 84443; 85025; 87086